=== PATIENT | female | born 1965 | race Caucasian/White ===

== ENCOUNTER 2025-02-24 14:00 | Emergency (ER) | payer MEDICARE, MEDICAID, SELFPAY ==
[2025-02-24 14:00] VITALS: BP 144/83; PULSE 80; RESP 18; TEMP 36.8; O2SAT 98; BMI 32.8
--- NOTE | 2025-02-24 14:40 | EX.ED.DYSGE1 ---
HPI History of Present Illness Chief Complaint: Rash Informant: patient Onset/Context/Timing Onset: Days (2) Context: Gradual Onset Timing: Continuous Quality: Aching, burning Location: Left gluteal area Worsened by: Hot shower Relieved by: Nothing Narrative Narrative: Patient presents with a rash on her left gluteal area that has been getting worse over the past 2 days. Patient describes her pain as aching and burning. Patient states it is over the left gluteal area. Patient is concerned that this could be shingles. Patient states it is worse when she takes a shower. Patient states her pain has been constant. Patient denies any fevers or chills. Patient denies any discharge or drainage. Patient denies any paresthesias or weakness. PFSH [facility] Medical History (Updated 02/24/25 @ 14:[address] Rupesh Jensen DO) Hypercholesterolemia Hypertension Type 2 diabetes mellitus Anxiety Depression Home Medications ?Medication ?Instructions ?Recorded ?Last Taken ?Type hydrocodone-acetaminophen 5-325mg 1 tab PO Q6H PRN PRN Pain 3 days 02/24/25 Unknown Rx 5mg-325mg #10 TABLETS valacyclovir 1 gram tablet 1,000 mg PO TID #20 tabs 02/24/25 Unknown Rx (Valtrex) Allergy/AdvReac Type Severity Reaction Status Date / Time NSAIDS (Non-Steroidal Allergy Hives Verified 02/24/25 14:03 Anti-Inflamma Sulfa (Sulfonamide AdvReac Diarrhea Verified 02/24/25 14:03 Antibiotics) Surgical History (Updated 02/24/25 @ 14:[address] Rupesh Jensen DO) Hx of removal of cyst History of hysterectomy Hx of cholecystectomy Social History (Updated 02/24/25 @ 14:[address] Rupesh Jensen DO) Smoking Status: Current every day smoker ROS ROS ED Constitutional Constitutional ED: Denies chills or fever(s) Eyes Eyes: Denies blurry vision or change in vision ENT ENT ED: Denies rhinorrhea or sore throat Cardiovascular Cardiovascular: Denies chest pain or palpitations Respiratory/Chest Respiratory/Chest: Denies cough or dyspnea Gastrointestinal Gastrointestinal: Denies nausea or vomiting Genitourinary Genitourinary ED: Denies dysuria or hematuria Musculoskeletal Musculoskeletal: Denies back pain or neck pain Integumentary Reports rash; Denies abscess Neurologic Neurologic: Denies headache(s) or weakness Allergic/Immunologic Allergic/Immunologic ED: Denies mouth swelling or urticaria EXAM Physical Exam Const Vital Signs: 02/24/25 14:00 Temperature 98.2 F Temperature Source Oral Pulse Rate 80 Respiratory Rate 18 Blood Pressure 144/83 H Blood Pressure Mean 103 Pulse Ox 98 Oxygen Delivery Method Room Air Positive well nourished and well developed General Appearance ED: well developed and NAD HEENT Reports moist mucous membranes Neck supple and no JVD Neuro oriented x3, CN's II-XII intact bilaterally and no sensory deficits noted Sensorium / Orientation: alert Motor Exam: strength 5/5 throughout Skin Skin Narrative: There is an erythematous rash with some vesicles noted over the left gluteal area. There is no warmth noted. There is no discharge or drainage noted. There are no petechia noted. There is no involvement of the palms or soles. There is no involvement of the mucous membranes. MDM MDM MDM Narrative Medical decision making narrative: Patient was advised that this does appear to be varicella-zoster. Patient was given a prescription for valacyclovir and a short course of [place]. Patient was instructed to follow-up with her primary care physician in 5 to 7 days. Patient understood and was agreeable plan. All questions were answered. Discharge Plan Triage Chief Complaint: Rash ED Provider: Rupesh Jensen Dx/Rx/DC Orders Clinical Impression: Varicella zoster, Hypertension, Tobacco use Instructions: ED Shingles (Herpes Zoster) Prescriptions: New hydrocodone-acetaminophen 5-325 mg tablet 1 tab PO Q6H PRN PRN (Reason: Pain) 3 Days Qty: 10 0RF valacyclovir [Valtrex] 1 gram tablet 1,000 mg PO TID Qty: 20 0RF Primary Care Provider: NOT,DEFINED Referrals: NOT,DEFINED [Primary Care Provider] - 3-5 Days Print Language: Amharic Disposition Disposition: Home, Self Care
== END 2025-02-24 15:14 | disposition home or self-care (01) ==
PROVIDERS: Emergency Provider Emergency Medicine; Visit Provider Emergency Medicine
DX: B02.9 Zoster without complications (principal); F17.200 Nicotine dependence, unspecified, uncomplicated
CPT/HCPCS: 99282

== ENCOUNTER 2025-04-07 19:02 | Emergency (ER) | payer OTHER, MEDICARE, MEDICAID, SELFPAY ==
[2025-04-07] VITALS (22 sets, daily range): BP systolic 61–139; BP diastolic 39–116; PULSE 59–69; RESP 15–25; TEMP 18.8–36.7; O2SAT 84–100; BMI 34.0
--- NOTE | 2025-04-07 19:17 | EKG12_ITS ---
Test Reason : UNRESPONSIVE Blood Pressure : */* mmHG Vent. Rate : 69 BPM Atrial Rate : * BPM P-R Int : * ms QRS Dur : 90 ms QT Int : 380 ms P-R-T Axes : * 22 43 degrees QTcB Int : 407 ms Accelerated Junctional rhythm Abnormal ECG Confirmed by FARZANA ROSAS, AURORA ([id number]), associate entertainment editor ANGELITA WONG ([id number]) on 04/08/2025 1:09:53 PM Referred By: Confirmed By: AURORA YANES MD
--- NOTE | 2025-04-07 19:17 | CT_ITS ---
PROCEDURE: BRAIN/HEAD WITHOUT CONTRAST 04/07/2025 REASON FOR EXAM: Altered mental status. Suicide attempt with medication TECHNIQUE: BRAIN/HEAD WITHOUT CONTRAST Coronal and Sagittal reconstruction series were provided. One or more dose reduction techniques were used (e.g., Automated exposure control, adjustment of the mA and/or kV according to patient size, use of iterative reconstruction technique. RADIATION DOSE SUMMARY: CTDlvol: 44.99 mGy DLP: 812.98 mGycm COMPARISON: None. FINDINGS: Brain: No intra-axial or extra-axial hemorrhage. No mass, mass effect or midline shift. No evidence of hypoxia in the basal ganglia. CSF Spaces: Normal for age. Sinuses/Mastoids: Clear Bones: No fracture or acute bony process. CT/Brain/Head without Contrast IMPRESSION: No acute process is detected. Reading [facility]
--- OUTSIDE RECORDS SUMMARY | 2025-04-07 19:21 | XMS RPT_ITS | CCD ---
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 Role Phone Anjana Salinas Primary Care Provider Unknown, Referring Provider Unavailable Unav ailable Brad ROSAS, Anjana Primary Care Provider Anjana Salinas MD Primary Care Provi kaushal Anjana Salinas MD Primary Care Provider Anjana Salinas Attending Unavailable Brad, Anjana Referring Unavailable Brad, Anjana Primary Care Unavailable BradAnjana granados Attending Unavailable Brad, Anjana Referring Unavailable Brad, Anjana Primary Care Unavailable BradAnjana granados Attending Unavailable Brad, Anjana Referring Unavailable Brad, Anjana Primary Care Unavailable Laura Garduno Attending Unavailable Brad, Anjnaa Referring Unavailable Brad, Anjana Primary Care Unavailable Gonzalo Mae Attending Unavailable Brad, Anjana Referring Unavailable Brad, Anjana Primary Care Unavailable Anjana Salinas MD Primary Care Provider Anjana Salinas MD Primary Care Provider Unavailable Primary Care Provider UnavailLena Sherman MD Primary Care Provider Clare Robledo DO Primary Care Provider LENA VARNER Primary Care Unavailable JOE ESCOBEDO Attending Unavailable Lena Varner MD Primary Care Provider [phone] Dr. Rupesh Jensen DO Emergency Provider Care Physician, No Primary Primary Care Provider Unavailable LENA VARNER Primary Care Unavailable ASHLEY AMOR Attending Unavailable ROBLEDO, CLARE M Primary Care Unavailable LISHNEVSKI, LENA Attending Unavailable LISHNEVSKI, LENA Primary Care Unavailable LISHNEVSKI, LENA Attending Unavailable LISHNEVSKI, LENA Primary Care Unavailable LISHNEVSKI, LENA Attending Unavailable LISHNEVSKI, LENA Primary Care Unavailable LISHNEVSKI, LENA Attending Unavailable LISHNEVSKI, LENA Referring Unavailable LISHNEVSKI, LENA Primary Care Unavailable LISHNEVSKI, LENA Attending Unavailable LISHNEVSKI, LENA Primary Care Unavailable LISHNEVSKI, LENA Attending Unavailable LISHNEVSKI, LENA Primary Care Unavailable LISHNEVSKI, LENA Attending Unavailable LISHNEVSKI, LENA Primary Care Unavailable LISHNEVSKI, LENA Primary Care Unavailable BRONWYN ROBERT Attending Unavailable LISHNEVSKI, LENA Primary Care Unavailable LISHNEVSKI, LENA Primary Care Unavailable BRONWYN MOLINA Attending Unavailable Rupesh Jensen Attending Unavailable Care Physician, No Primary Primary Care Unava ilable Allergies Allergy Classification Reported Allergen(s) Allergy Type Date of Onset Reaction(s) Facility NSAIDs (3 sources) NSAIDs Drug Allergy 02-07-20 15 Anaphylaxis [facility] Sulfamethoxazole / Trimethoprim (3 sources) Sulfamethoxazole / Trimethoprim Drug Allergy 02-07-20 15 Diarrhea, Nausea And Vomiting [facility] (10 sources) NSAIDs Propensity to adverse reactions to drug 02-07-20 15 Anaphylaxis [place], [place] (20 sources) Sulfamethoxazole / Trimethoprim Drug Allergy 02-07-20 15 Diarrhea, Nausea And Vomiting [place], [place] (20 sources) Non-steroidal anti-inflammatory agent; Translations: [NSAIDS (NON-STEROIDAL ANTI-INFLAMMATORY DRUG)] Drug Allergy 04-27-20 11 Hives, Itching, Anaphylaxis [facility] (20 sources) Sulfonamides (Antibiotic); Translations: [SULFA (SULFONAMIDE ANTIBIOTICS)] Drug Intolerance 04-27-20 11 Diarrhea, GI Upset [facility] (2 sources) Non-steroidal anti-inflammatory agent Drug Allergy 04-27-20 11 Hives, Itching [facility] (2 sources) cyclobenzaprine Drug Allergy 01-31-20 25 [facility] (1 source) Nonsteroidal Anti-inflammatory Compounds Allergy to substance 02-25-20 25 [facility] (1 source) Sulfonamides (Antibiotic) Propensity to adverse reactions 02-25-20 Diarrhea [facility] (1 source) NSAIDs Drug allergy (disorder) 02-25-20 [facility] (1 source) Sulfonamides (Antibiotic) Drug allergy (disorder) 02-25-20 [facility] Medications Current Medications Medication Drug Class(es) Dates Sig (Normalized) Sig (Original) acetaminophen 500 mg oral tablet (16 sources) Start: 04-14-2022 acetaminophen (TYLENOL) tablet 1,000 mg Start: 08-11-2021 take 1 dose by mouth three times daily 1,000 mg, Oral, EVERY 8 HOURS SCHEDULED (3 times per day), First dose on Tue08/11/21 at 2200 Maximum dose of acetaminophen is 4000 mg from all sources in 24 hours. Post-op take 1 tablet by donn th every six hours as needed for pain acetaminophen (TYLENOL) 500 MG tablet Take 500 mg by mouth every 6 hours as needed for Pain 0 Active acetaminophen 325 mg / HYDROcodone bitartrate 5 mg oral tablet (1 source) Opioid Agonist Start: 02-24-2025 take 1 tablet by mouth every six hours as needed for pain Hydrocodone-Acetaminophen 5-325 mg tablet Active 1 {tbl} PO EVERY 6 HOURS NEEDED as needed for Pain 10 3 0 February 24, 2025 Varicella-zoster virus infection Zoster without complications [id number] 200 actuat albuterol 0.09 mg/actuat metered dose inhaler (6 sources) beta2-Adren ergic Agonist Start: 02-25-2023 take 2 puff(s) by inhalation every six hours as needed for wheezing albuterol HFA (PROVENTIL HFA, VENTOLIN HFA) 90 mcg/actuation inhaler Inhale 2 Puffs as instructed every 6 hours as needed for wheezing/shortness of breath. 8 g 02/25/2023 Active Start: 08-12-2021 End: 08-13-2021 albuterol (PROVENTIL) nebuli zer solution 2.5 mg Start: 08-11-2021 End: 08-12-2021 2.5 mg, Nebulization, EVERY 4 HOURS WHILE AWAKE, First dose on Tue08/11/21 at 2000, Post-op Start: 04-10-2019 End: 04-10-2019 albuterol (PROVENTIL) nebuli zer solution 2.5 mg Comment on above: Inhale 2 Puffs as in structed every 6 hours as needed for wheezing/shortness of breath. albuterol 0.833 mg/ml / ipratropium bromide 0.167 mg/ml inhalation solution (7 sources) Anticholinergic, beta2-Adrenergic Agonist Start: End: take 3 mL by inhalation twice daily ipratropium-albu terol (DUONEB) 0.5-2.5 (3) MG/3ML SOLN nebulizer solution Inhale 3 mLs into the lungs 2 times daily 360 mL 0 08/18/2021 Active Start: 08-13-2021 End: 08-17-2021 ipratropium-albuterol (DUONE B) nebulizer solution 1 ampule Start: 04-13-2019 End: 04-13-2019 ipratropium-albuterol (DUONE B) nebulizer solution 1 ampule amLODIPine 10 mg oral tablet (20 sources) Dihydropyridine Calcium Channel Morris Start: 10-25-2018 End: 10-30-2024 take 1 tablet by mouth once daily amLODIPine (Norvasc) 10 MG tablet Indications: Essential hypertension, benign Take 1 tablet (10 mg) by mouth daily. 90 tablet 1 10/30/2024 Active Comment on above: Take 10 mg by mouth once daily. atorvastatin 40 mg oral tablet (20 sources) HMG-CoA Reductase Inhibitor Start: 05-06-2022 End: 10-30-2024 take 2 tablets by mouth every other day, then take 1 tablet by mouth every other day atorvastatin (Lipitor) 40 MG tablet Indications: Hypercholesteremia TAKE TWO BY MOUTH EVERY OTHER DAY ALTERNATING WITH ONE EVERY OTHER DAY 135 tablet 02/28/2024 10/30/2024 Discontinued (Therapy completed) Start: 01-20-2022 take 2 tablets by mo uth every other day, then take 1 tablet by mouth every other day atorvastatin (LIPITOR) 40 MG tablet Indications: Hyperlipidemia, unspecified hyperlipidemia type TAKE TWO BY MOUTH EVERY OTHER DAY ALTERNATING WITH ONE EVERY OTHER DAY 135 tablet 0 01/20/2022 Active Start: 08-18-2021 End: 08-18-2021 take 2 tablets by mouth every other day, then take 1 tablet by mouth every other day atorvastatin (LIPITOR) 40 MG tablet Indications: Hyperlipidemia, unspecified hyperlipidemia type TAKE TWO BY MOUTH EVERY OTHER DAY ALTERNATING WITH ONE EVERY OTHER DAY 135 tablet 1 08/18/2021 Active Start: 08-11-2021 End: 01-28-2025 take 1 tablet by mouth once daily atorvastatin (Lipitor) 40 MG tablet Take 1 tablet (40 mg) by mouth daily. 90 tablet 1 10/30/2024 Active Start: 03-27-2021 End: 08-15-2021 take 2 tablets by mouth every other day, then take 1 tablet by mouth every other day atorvastatin (LIPITOR) 40 MG tablet Indications: Hyperlipidemia, unspecified hyperlipidemia type TAKE TWO BY MOUTH EVERY OTHER DAY ALTERNATING WITH ONE EVERY OTHER DAY 135 tablet 1 03/27/2021 08/15/2021 Discontinued (LIST CLEANUP) Start: 06-11-2020 atorvastatin ( LIPITOR) 40 MG tablet Indications: Hyperlipidemia, unspecified hyperlipidemia type Take two tablets alternating with one tablet daily 135 tablet 1 06/11/2020 Active Start: 05-02-2019 atorvastatin ( LIPITOR) 40 MG tablet Indications: Hyperlipidemia, unspecified hyperlipidemia type Take two tablets alternating with one tablet daily 135 tablet 1 05/02/2019 Active Start: 05-03-2018 atorvastatin ( LIPITOR) 40 MG tablet Indications: Hyperlipidemia, unspecified hyperlipidemia type Take two tablets alternating with one tablet daily 135 tablet 1 05/03/2018 Active Comment on above: Take 40 mg by mouth once daily. benzonatate 100 mg oral capsule (4 sources) Non-narcotic Antitussive Start: 2 End: 2 take 1-2 capsules by mouth three times daily as needed for cough benzonatate (TESSALON) 100 MG capsule Take 1-2 capsules by mouth 3 times daily as needed for Cough 60 capsule 0 12/03/2021 12/13/2021 Active Start: 04-13-2019 End: 04-23-2019 benzonatate (TESSALON) capsu le 100 mg calamine 80 mg/ml / pramoxine hydrochloride 10 mg/ml topical lotion (1 source) Start: 02-21-2025 pramoxine-calamine (CALADRYL) 1-8 % lotion Indications: Rash Apply 1 application to affected area as needed. 177 mL 02/21/2025 Active cephalexin 500 mg oral capsule (1 source) Cephalosporin Antibacterial Start: 02-22-2021 End: 03-01-2021 take 1 capsule by mouth three times daily cephALEXin (KEFLEX) 500 MG capsule Take 1 capsule by mouth 3 times daily for 7 days 21 capsule 0 02/22/2021 03/01/2021 Active cholecalciferol 0.025 mg oral tablet (20 sources) Vitamin D take 1 tablet by mouth once daily cholecalciferol (Vitamin D-3) 25 MCG (1000 UT) tablet Take 1,000 Units by mouth daily. Active Comment on above: Take 1,000 Units by mouth once daily. ciprofloxacin 500 mg oral tablet (12 sources) Quinolone Antimicrobial Start: 03-13-2024 End: 03-18-2024 take 1 tablet by mouth twice daily ciprofloxacin HCl (CIPRO) 500 mg tablet Indications: Leukocytes in urine Take 1 tablet by mouth two times a day for 5 days. 10 tablet 0 03/13/2024 03/18/2024 Active Start: 06-22-2023 End: 06-25-2023 take 1 tablet by mouth twice daily ciprofloxacin HCl (CIPRO) 500 mg tablet Indications: UTI symptoms Take 1 tablet by mouth two times a day for 3 days. 6 tablet 0 06/22/2023 06/25/2023 Active Start: 04-14-2022 End: 04-17-2022 ciprofloxacin (CIPRO) tablet 250 mg Start: 01-31-2021 End: 02-03-2021 take 1 tablet by mouth twice daily ciprofloxacin (CIPRO) 500 MG tablet Take 1 tablet by mouth 2 times daily for 3 days 6 tablet 0 01/31/2021 02/03/2021 Active Start: 08-05-2020 End: 08-12-2020 ciprofloxacin (CIPRO) tablet 500 mg Start: 12-22-2019 End: 01-01-2020 ciprofloxacin (CIPRO) tablet 500 mg Comment on above: Take 1 tablet by donn th two times a day for 3 days. clonazePAM 1 mg oral tablet (20 sources) Benzodiazepine Start: 08-11-2021 End: 08-16-2021 clonazePAM (KLONOPIN) tablet 1 mg take 1 tablet by mouth in the mo rning clonazePAM (KlonoPIN) 0.5 MG tablet Take 0.5 mg by mouth in the morning and 0.5 mg in the evening. Active take 2 tablets by mouth twice da charlene clonazePAM (KLONOPIN) 0.5 mg tablet Take 1 mg by mouth two times a day. Active take 1 tablet by mouth twice eloise ly clonazePAM (KLONOPIN) 2 MG tablet Take 2 mg by mouth 2 times daily. 0 Active take 1 tablet by donn th three times daily as needed clonazePAM (KLONOPIN) 0.5 MG tablet Take 0.5 mg by mouth 3 times daily as needed. . 0 Active Comment on above: Take 0.5 mg by mouth twice daily. colesevelam hydrochloride 625 mg oral tablet (20 sources) Bile Acid Sequestrant Start: 10-11-19 take 2 tablets by mouth twice daily colesevelam (Welchol) 625 MG tablet Take 1,250 mg by mouth 2 times daily. 10/11/2023 Active dapagliflozin 10 mg oral tablet (20 sources) Sodium-Glucose Cotransporter 2 Inhibitor Start: 10-19-19 End: 01-29-20 take 1 tablet by mouth once daily dapagliflozin (Farxiga) 10 MG tablet Indications: Type 2 diabetes mellitus without complication, without long-term current use of insulin ([facility]) Take 1 tablet (10 mg) by mouth daily. 90 tablet 1 10/30/2024 Active Start: 01-25-2019 End: 03-24-2023 take 1 tablet by mouth once daily at breakfast dapagliflozin (Farxiga) 10 MG Indications: Type 2 diabetes mellitus without complication, without long-term current use of insulin ([facility]/HCC) ([facility]) Take 1 tablet (10 mg) by mouth daily (with breakfast). 90 tablet 1 03/24/2023 Active Comment on above: Take 10 mg by mouth daily with breakfast. 1 ml dexamethasone phosphate 4 mg/ml injection (1 source) Corticosteroid Start: 021 dexamethasone (DECADRON) injection 6 mg dicyclomine hydrochloride 10 mg oral capsule (5 sources) Anticholinergic Start: 023 End: 023 take 1 capsule by mouth every six hours as needed dicyclomine (Bentyl) 10 MG capsule Take 1 capsule (10 mg) by mouth every 6 hours as needed (Abdominal pain) for up to 5 days. 12 capsule 0 06/21/2023 06/26/2023 Active Start: 04-10-2021 take 2 capsules by out three times daily before mealtime dicyclomine (BENTYL) 10 mg capsule Take 2 capsules by mouth three times daily before meals. 180 capsule 0 04/11/2021 Active Comment on above: Take 2 capsules by out three times daily before meals. docusate sodium 50 mg / sennosides, prison 8.6 mg oral tablet (5 sources) Start: 08-18-2021 End: 08-18-2021 take 1 tablet by mouth once daily sennosides-docusa te sodium (SENOKOT-S) 8.6-50 MG tablet Take 1 tablet by mouth daily 5 tablet 0 08/18/2021 Active Start: 08-11-2021 take 1 tablet by donn th twice daily 1 tablet, Oral, 2 TIMES DAILY, First dose on Tue08/11/21 at 2100, Post-op 0.4 ml enoxaparin sodium 100 mg/ml prefilled syringe (1 source) Low Molecular Weight Heparin Start: 08-12-2021 inject 40 mg by subcutaneous injection once daily 40 mg, SubCUTAneous, DAILY, First dose on Tue08/12/21 at 0900, Post-op ferrous sulfate 325 mg oral tablet (1 source) Start: 06-18-2023 End: 07-18-2023 take 1 tablet by mouth once daily ferrous sulfate (IRON) 325 mg (65 mg iron) tablet Take 1 tablet by mouth once daily. 30 tablet 0 06/18/2023 07/18/2023 Active Comment on above: Take 1 tablet by donn th once daily. gabapentin 100 mg oral capsule (3 sources) Anti-epileptic Agent Start: 09-08-2021 End: 08-15-2089 take 1 capsule by mouth three times daily gabapentin (NEURONTIN) 100 MG capsule Take 1 capsule by mouth 3 times daily for 30 days. 90 capsule 0 09/08/2021 08/15/2089 Active Start: 08-11-2021 End: 08-11-2021 gabapentin (NEURONTIN) capsu le 300 mg glimepiride 4 mg oral tablet (20 sources) Sulfonylurea Start: 10-18-2023 End: 10-30-2024 take 1 tablet by mouth twice daily at mealtime glimepiride (Amaryl) 4 MG tablet TAKE ONE BY MOUTH TWICE DAILY WITH MEALS 180 tablet 1 10/30/2024 Active Start: 02-02-2023 End: 04-28-2023 take 1 tablet by mouth twice daily at mealtime glimepiride (Amaryl) 4 MG tablet TAKE ONE BY MOUTH TWICE DAILY WITH MEALS 180 tablet 1 04/28/2023 Active Start: 05-06-2022 take 1 tablet by donn th twice daily at mealtime glimepiride (Amaryl) 4 MG tablet TAKE ONE BY MOUTH TWICE DAILY WITH MEALS 0 05/06/2022 Active Start: 02-03-2022 take 1 tablet by donn th twice daily at mealtime glimepiride (AMARYL) 4 MG tablet Indications: Type 2 diabetes mellitus without complication, without long-term current use of insulin (HCC) TAKE ONE BY MOUTH TWICE DAILY WITH MEALS 180 tablet 1 02/03/2022 Active Start: 08-18-2021 End: 08-18-2021 take 1 tablet by mouth twice daily at mealtime glimepiride (AMARYL) 4 MG tablet Indications: Type 2 diabetes mellitus without complication, without long-term current use of insulin (HCC) TAKE ONE BY MOUTH TWICE DAILY WITH MEALS 180 tablet 1 08/18/2021 Active Start: 04-16-2021 End: 08-15-2021 take 1 tablet by mouth twice daily at mealtime glimepiride (AMARYL) 4 MG tablet Indications: Type 2 diabetes mellitus without complication, without long-term current use of insulin (HCC) TAKE ONE BY MOUTH TWICE DAILY WITH MEALS 180 tablet 1 04/16/2021 08/15/2021 Discontinued (LIST CLEANUP) Start: 01-19-2021 take 1 tablet by donn th twice daily at mealtime glimepiride (AMARYL) 4 MG tablet Indications: Type 2 diabetes mellitus without complication, without long-term current use of insulin (HCC) TAKE ONE BY MOUTH TWICE DAILY WITH MEALS 180 tablet 1 01/19/2021 Active Start: 06-11-2020 take 1 tablet by donn th twice daily at mealtime glimepiride (AMARYL) 4 MG tablet Indications: Type 2 diabetes mellitus without complication, without long-term current use of insulin (HCC) TAKE ONE BY MOUTH TWICE DAILY WITH MEALS 180 tablet 1 06/11/2020 Active Start: 02-06-2020 take 1 tablet by donn th twice daily at mealtime glimepiride (AMARYL) 4 MG tablet Indications: Type 2 diabetes mellitus without complication, without long-term current use of insulin (HCC) TAKE ONE BY MOUTH TWICE DAILY WITH MEALS 180 tablet 0 02/06/2020 Active Start: 08-10-2019 End: 11-08-2019 take 1 tablet by mouth twice daily at mealtime glimepiride (AMARYL) 4 MG tablet Indications: Type 2 diabetes mellitus without complication, without long-term current use of insulin (HCC) TAKE ONE BY MOUTH TWO TIMES DAILY WITH MEALS 180 tablet 0 11/06/2019 Active Start: 01-25-2019 End: 04-25-2019 take 1 tablet by mouth twice daily at mealtime glimepiride (AMARYL) 4 MG tablet Indications: Type 2 diabetes mellitus without complication, without long-term current use of insulin (HCC) Take 1 tablet by mouth 2 times daily (with meals) 180 tablet 0 01/25/2019 04/25/2019 Active Comment on above: Take 4 mg by mouth t wice daily. glucagon (rdna) 1 mg injection (1 source) Antihypoglycemic Agent Start: take 1 mL intravenously every hour 1 mg, IntraMUSCular, PRN, Low blood sugar, Blood glucose less than 70 mg/dL and patient NOT ALERT or NPO and does not have IV access., Starting on Tue08/11/21 at 1804 After administration, attempt intravenous access and start D5W at 100 mL/hr. Repeat blood glucose in 15 minutes x2 and notify provider. Glucometer (7 sources) Start: Glucometer by Other route daily. Once daily thing in the a.m. 1 kit 10/30/2024 Active 150 ml glucose 50 mg/ml injection (3 sources) Start: 021 15 g, Oral, PRN, Low blood sugar, Starting on Tue08/11/21 at 1804 If blood glucose less than 50 mg/dL and patient ALERT and TOLERATING PO, give 2 tubes glucose gel. If blood glucose less than 70 mg/dL and patient ALERT and TOLERATING PO, give 1 tube glucose gel. Repeat blood glucose in 15 minutes. If blood glucose is less than 70 mg/dL, repeat treatment and recheck blood glucose in 15 minutes x2 and notify provider. Start: 08-11-2021 12.5 g, IntraV ENous, PRN, Low blood sugar, Blood glucose less than 70 mg/dL and patient NOT ALERT or NPO., Starting on Tue08/11/21 at 1804 If patient does not respond within 5 minutes, repeat dose x1. Start D5W at 100 mL/hour until ordering provider can be reached. Repeat blood glucose in 15 minutes. If blood glucose is less than 70 mg/dL, repeat treatment and recheck blood glucose in 15 minutes x2. If using Glucostabilizer, dose as instructed per system. Start: 08-11-2021 100 mL/hr, Int raVENous, PRN, Low blood sugar, Starting on Tue08/11/21 at 1804 Start infusion following administration of dextrose 50% or glucagon. 1 ml hydrALAZINE hydrochloride 20 mg/ml injection (1 source) Arteriolar Vasodilator Start: 08-11-2021 10 mg, IntraVENous, EVERY 6 HOURS PRN, High Blood Pressure, give is SBP is > 160, second line, hold if HR is > 100, Starting on Tue08/11/21 at 1804, Post-op insulin isophane, human 100 unt/ml injectable suspension (4 sources) Start: 08-19-2021 insulin NPH (H UMULIN N;NOVOLIN N) injection vial 6 Units Start: 08-18-2021 insulin NPH (H UMULIN N;NOVOLIN N) injection vial 4 Units Start: 08-18-2021 End: 08-26-2021 insulin NPH (HUMULIN N KWIKP EN) 100 UNIT/ML injection pen Inject 20 Units into the skin every morning for 2 days, THEN 15 Units every morning for 2 days, THEN 10 Units every morning for 2 days, THEN 5 Units every morning for 2 days. 1 pen 0 08/18/2021 08/26/2021 Active irbesartan 150 mg oral tablet (20 sources) Angiotensin 2 Receptor Morris Start: 10-25-2018 End: 10-30-2024 take 1 tablet by mouth once daily irbesartan (Avapro) 150 MG tablet Indications: Essential hypertension, benign Take 1 tablet (150 mg) by mouth daily. 90 tablet 1 10/30/2024 Active Comment on above: Take 150 mg by mouth daily at bedtime. labetalol hydrochloride 5 mg/ml injectable solution (1 source) beta-Adrenergic Morris Start: 08-11-2021 10 mg, IntraVENous, EVERY 6 HOURS PRN, High Blood Pressure, give if SBP is > 160, first line, hold if HR is < 65, Starting on Tue08/11/21 at 1804 linagliptin 5 mg oral tablet (20 sources) Dipeptidyl Peptidase 4 Inhibitor Start: 01-22-2021 End: 04-06-2025 take 1 tablet by mouth once daily linaGLIPtin (Tradjenta) 5 MG tablet Indications: Type 2 diabetes mellitus without complication, without long-term current use of insulin ([facility]) Take 1 tablet (5 mg) by mouth daily. 90 tablet 1 10/08/2024 04/06/2025 Active Start: 06-11-2020 take 1 tablet by donn th once daily, then take 1 tablet by mouth linagliptin (TRADJENTA) 5 MG tablet Indications: Type 2 diabetes mellitus without complication, without long-term current use of insulin (HCC) TAKE ONE BY MOUTH DAILY 90 tablet 1 06/11/2020 Active Start: 01-28-2020 take 1 mg by mouth once daily TRADJENTA 5 MG tablet Indications: Type 2 diabetes mellitus without complication, without long-term current use of insulin ([facility]) TAKE ONE BY MOUTH DAILY 90 tablet 0 01/28/2020 Active Start: 11-06-2019 take 1 mg by mouth once daily TRADJENTA 5 MG tablet Indications: Type 2 diabetes mellitus without complication, without long-term current use of insulin (HCC) TAKE ONE BY MOUTH DAILY 90 tablet 0 11/06/2019 Active Start: 05-02-2019 take 1 tablet by donn th once daily linagliptin (TRADJENTA) 5 MG tablet Indications: Type 2 diabetes mellitus without complication, without long-term current use of insulin ([facility]) Take 1 tablet by mouth daily 90 tablet 1 05/02/2019 Active Start: 01-25-2019 End: 04-25-2019 take 1 tablet by mouth once daily linagliptin (TRADJENTA) 5 MG tablet Indications: Type 2 diabetes mellitus without complication, without long-term current use of insulin ([facility]) Take 1 tablet by mouth daily 90 tablet 0 01/25/2019 04/25/2019 Active Comment on above: Take 1 tablet by donn th once daily. metFORMIN hydrochloride 1000 mg oral tablet (20 sources) Biguanide Start: 8 End: 5 take 1 tablet by mouth twice daily at mealtime metFORMIN (Glucophage) 1000 MG tablet Indications: Type 2 diabetes mellitus without complication, without long-term current use of insulin (HCC) Take 1 tablet (1,000 mg) by mouth 2 times daily (with meals). 180 tablet 1 10/30/2024 04/28/2025 Active mirtazapine 15 mg disintegrating oral tablet (20 sources) Start: take 45 mg by mouth once daily 45 mg, Oral, NIGHTLY, First dose on Tue08/11/21 at 2100 mirtazapine (Rem sherry) 30 MG tablet Take 45 mg by mouth. Active mirtazapine (REM SHERRY SOLTAB) 30 MG disintegrating tablet Take 45 mg by mouth nightly 0 Active Comment on above: Take 45 mg by mouth daily at bedtime. mometasone furoate 1 mg/ml topical lotion (7 sources) Corticosteroid Start: mometasone (ELOCON) 0.1 % lotion Indications: Rash and nonspecific skin eruption Apply topically daily. 60 mL 1 08/29/2019 Active ondansetron (ZOFRAN-ODT) disintegrating tablet 4 mg (1 source) Start: 021 ondansetron (ZOFRAN-ODT) disintegrating tablet 4 mg oxyCODONE hydrochloride 5 mg oral tablet (2 sources) Opioid Agonist Start: End: take 1 tablet by mouth every four hours as needed oxyCODONE (ROXICODONE) 5 MG immediate release tablet Indications: Mediastinal mass Take 0.5-1 tablets by mouth every 4 hours as needed for Pain for up to 3 days. 12 tablet 0 08/18/2021 08/21/2021 Active Start: 08-11-2021 oxyCODONE (COREY ICODONE) immediate release tablet 5 mg Oxygen (3 sources) Start: 08-18-2021 OXYGEN 3 L continuous 0 08/18/2021 Active pantoprazole 40 mg delayed release oral tablet (9 sources) Proton Pump Inhibitor Start: 07-24-2023 take 40 mg by mouth once 40 mg, Oral, Once, On 07/24/23 at 1650, For 1 dose, Do not crush, chew, or split. Start: 07-24-2023 End: 08-23-2023 take 1 tablet by mouth twice daily pantoprazole (ProtoNix) 40 MG EC tablet Take 1 tablet (40 mg) by mouth 2 times daily. Do not crush, chew, or split. 60 tablet 0 07/24/2023 08/23/2023 Active Start: 08-12-2021 take 40 mg by mouth once daily before breakfast 40 mg, Oral, DAILY BEFORE BREAKFAST, First dose on Tue08/12/21 at 0700 Do not crush or break. Substituted for Omeprazole (PRILOSEC). take 40 mg by mouth twice daily pantoprazole sodium (PANTOPRAZOLE ORAL) Take 40 mg by mouth two times a day. Active PARoxetine hydrochloride 20 mg oral tablet (20 sources) Serotonin Reuptake Inhibitor Start: 08-11-2021 take 20 mg by mouth twice daily 20 mg, Oral, 2 TIMES DAILY, First dose on Tue08/11/21 at 2100 Comment on above: Take 20 mg by mouth twice daily. phenazopyridine hydrochloride 200 mg delayed release oral tablet (8 sources) Start: 02-22-2021 End: 02-25-2021 take 1 tablet by mouth three times daily as needed for pain phenazopyridine (PYRIDIUM) 200 MG tablet Take 1 tablet by mouth 3 times daily as needed for Pain (bladder spasm/pain) 6 tablet 0 02/22/2021 02/25/2021 Active Start: 01-31-2021 End: 02-03-2021 take 1 tablet by mouth three times daily as needed for pain phenazopyridine (PYRIDIUM) 200 MG tablet Take 1 tablet by mouth 3 times daily as needed for Pain (bladder spasm/pain) 6 tablet 0 01/31/2021 02/03/2021 Active Start: 08-05-2020 End: 08-05-2020 phenazopyridine (PYRIDIUM) t ablet 200 mg Start: 08-05-2020 End: 08-08-2020 take 1 tablet by mouth three times daily as needed for pain phenazopyridine (PYRIDIUM) 200 MG tablet Take 1 tablet by mouth 3 times daily as needed for Pain (bladder spasm/pain) 6 tablet 0 08/05/2020 08/08/2020 Active Start: 12-22-2019 End: 12-22-2019 phenazopyridine (PYRIDIUM) t ablet 200 mg Start: 12-22-2019 End: 12-25-2019 take 1 tablet by mouth three times daily as needed for pain phenazopyridine (PYRIDIUM) 100 MG tablet Take 1 tablet by mouth 3 times daily as needed for Pain (dysuria) 10 tablet 0 12/22/2019 12/25/2019 Active polyethylene glycol 3350 18882 mg powder for oral solution (1 source) Osmotic Laxative Start: 08-11-2021 17 g, Oral, DAILY, First dose on Tue08/11/21 at 1830, Post-op predniSONE 20 mg oral tablet (3 sources) Start: 08-18-2021 End: 08-26-2021 take 2 tablets by mouth once daily, then take 1.5 tablets by mouth once daily, then take 1 tablet by mouth once daily, then take 0.5 tablet by mouth once daily predniSONE (DELTASONE) 20 MG tablet Take 2 tablets by mouth daily for 2 days, THEN 1.5 tablets daily for 2 days, THEN 1 tablet daily for 2 days, THEN 0.5 tablets daily for 2 days. 10 tablet 0 08/18/2021 08/26/2021 Active Start: 04-13-2019 End: 04-13-2019 predniSONE (DELTASONE) table t 60 mg Start: 04-13-2019 End: 04-23-2019 take 4 tablets by mouth once daily predniSONE (DELTASONE) 10 MG tablet Take 4 tablets by mouth once daily for 5 days 20 tablet 0 04/13/2019 04/23/2019 Active psyllium 3400 mg powder for oral suspension (4 sources) Start: 08-01-2023 take 1 dose by mouth once daily psyllium (METAMUCIL) 3.4 gram packet Take 1 Packet by mouth once daily. 08/01/2023 Active Start: 04-11-2021 take 1 dose by mouth once luc y psyllium (METAMUCIL) 3.4 gram packet Take 1 Packet by mouth once daily. 30 Packet 0 04/11/2021 Active Comment on above: Take 1 Packet by donn once daily. SITagliptin 100 mg oral tablet (2 sources) Dipeptidyl Peptidase 4 Inhibitor Start: 10-26-19 19 take 1 tablet by mouth once daily JANUVIA 100 MG tablet Indications: Type 2 diabetes mellitus without complication, without long-term current use of insulin (HCC) Take 1 tablet by mouth daily 90 tablet 0 10/25/2018 Active sodium chloride flush 0.9 % injection 3 mL (1 source) Start: 04-14-20 22 sodium chloride flush 0.9 % injection 3 mL Tirzepatide (Mounjaro) 2.5 MG/0.5ML solution pen-injector (3 sources) Start: 07-12-20 End: 08-09-20 inject 2.5 mg by subcutaneous injection every week Tirzepatide (Mounjaro) 2.5 MG/0.5ML solution pen-injector Indications: Type 2 diabetes mellitus without complication, without long-term current use of insulin (CMS/HCC) ([facility]) Inject 2.5 mg under the skin 1 (one) time per week for 28 days. 2 mL 0 07/12/2023 08/09/2023 Active valACYclovir 1000 mg oral tablet (2 sources) Herpesvirus Nucleoside Analog DNA Polymerase Inhibitor, Herpes Simplex Virus Nucleoside Analog DNA Polymerase Inhibitor, Herpes Zoster Virus Nucleoside Analog DNA Polymerase Inhibitor Start: 02-25-20 25 Valacyclovir (Valtrex) 1 gram tablet Active 1000 mg PO THREE TIMES A DAY February 24, 2025 12:00am Start: 02-21-2025 End: 02-28-2025 take 1 tablet by mouth three times daily valACYclovir (VALTREX) 1 gram tablet Indications: Rash Take 1 tablet by mouth three times a day for 7 days. 21 tablet 02/21/2025 02/28/2025 Active vitamin d 1000 unt oral tablet (2 sources) take 1 tablet by donn th once daily vitamin D (CHOLECALCIFEROL) 1000 UNIT TABS tablet Take 1,000 Units by mouth daily 0 Active Completed/Discontinued Medications Medication Drug Class(es) Dates Sig (Normalized) Sig (Original) acetaminophen 325 mg / oxyCODONE hydrochloride 5 mg oral tablet (2 sources) Opioid Agonist Start: 01-30-2025 End: 02-04-2025 take 1 tablet by mouth every eight hours as needed for pain oxyCODONE-acetam inophen (Percocet) 5-325 MG tablet Indications: Lumbar back pain Take 1 tablet by mouth every 8 hours as needed for severe pain (7-10) for up to 5 days. 15 tablet 01/30/2025 02/04/2025 aluminum hydroxide 40 mg/ml / magnesium hydroxide 40 mg/ml / simethicone 4 mg/ml oral suspension (2 sources) Start: 07-24-2023 End: 07-24-2023 take 20 mL by mouth once 20 mL, Oral, Once, On Tue07/24/23 at 1650, For 1 dose amoxicillin 875 mg / clavulanate 125 mg oral tablet (2 sources) Penicillin-class Antibacterial Start: 12-03-2021 End: 12-03-2021 amoxicillin-clav ulanate (AUGMENTIN) 875-125 MG per tablet 1 tablet Start: 12-03-2021 End: 12-10-2021 take 1 tablet by mouth twice daily amoxicillin-clavulanate (AUGMENTIN) 875-125 MG per tablet Take 1 tablet by mouth 2 times daily for 7 days 14 tablet 0 12/03/2021 12/10/2021 Active calcium chloride 0.0014 meq/ ml / potassium chloride 0.004 meq/ml / sodium chloride 0.103 meq/ml / sodium lactate 0.028 meq/ml injectable solution (2 sources) Start: 08-11-2021 End: 08-12-2021 IntraVENous, at 75 mL/hr, CONTINUOUS, Starting on Tue08/11/21 at 1830, For 6 hours, Post-op Start: 08-11-2021 End: 08-11-2021 lactated ringers infusion cholestyramine resin 4000 mg powder for oral suspension (2 sources) Bile Acid Sequestrant Start: 04-10-2021 take 1 dose by mouth twice daily at mealtime cholestyramine (QUESTRAN) 4 gram packet Take 1 Packet by mouth twice daily with meals. 60 Packet 0 04/10/2021 Active Comment on above: Take 1 Packet by donn twice daily with meals. Continuous Glucose Sensor (FreeStyle Hector 3 Plus Sensor) misc (12 sources) Start: 07-24-2024 End: 10-30-2024 Continuous Glucose Sensor (FreeStyle Hector 3 Plus Sensor) misc Indications: Type 2 diabetes mellitus without complication, without long-term current use of insulin (HCC) 1 Device every 15 days. 1 each 07/24/2024 10/30/2024 Discontinued (Therapy completed) Start: 07-24-2024 End: 10-30-2024 Continuous Glucose Sensor (F reeStyle Hector 3 Plus Sensor) misc Indications: Type 2 diabetes mellitus without complication, without long-term current use of insulin (CMS/[facility]) ([facility]) 1 Device every 15 days. 1 each 07/24/2024 10/30/2024 Discontinued (Therapy completed) Start: 07-24-2024 Continuous Glu cose Sensor (FreeStyle Hector 3 Plus Sensor) [facility] [place] Indications: Type 2 diabetes mellitus without complication, without long-term current use of insulin (CMS/HCC) ([facility]) 1 Device every 15 days. 1 each 07/24/2024 Active Start: 05-08-2024 End: 07-24-2024 Continuous Glucose Sensor (F reeStyle Hector 3 Plus Sensor) [facility] [place] Indications: Type 2 diabetes mellitus without complication, without long-term current use of insulin (CMS/[facility]) ([facility]) 1 Device every 15 days. 1 each 05/08/2024 07/24/2024 Discontinued (Reorder) Start: 05-08-2024 Continuous Glu cose Sensor (FreeStyle Hector 3 Plus Sensor) [facility] [place] Indications: Type 2 diabetes mellitus without complication, without long-term current use of insulin ([facility]) ([facility]) 1 Device every 15 days. 1 each 05/08/2024 Active famotidine 20 mg oral tablet (1 source) Histamine-2 Receptor Antagonist Start: 08-11-2021 End: 08-11-2021 famotidine (PEPCID) tablet 20 mg fluconazole 100 mg oral tablet (7 sources) Azole Antifungal Start: 01-30-2025 End: 02-02-2025 take 1 tablet by mouth once daily fluconazole (Diflucan) 100 MG tablet Take 1 tablet (100 mg) by mouth daily for 3 days. 3 tablet 01/30/2025 02/02/2025 Start: 08-20-2024 End: 08-23-2024 take 1 tablet by mouth once daily fluconazole (Diflucan) 100 MG tablet Take 1 tablet (100 mg) by mouth daily for 3 days. 3 tablet 08/20/2024 08/23/2024 Active Start: 03-24-2023 End: 03-25-2023 fluconazole (Diflucan) 150 M G tablet Take 1 tablet (150 mg) by mouth See administration instructions for 1 day. Take one tab now. Repeat in 7 days if symptoms persist. 2 tablet 0 03/24/2023 03/25/2023 1 ml HYDROmorphone hydrochloride 1 mg/ml cartridge (2 sources) Opioid Agonist Start: 08-11-2021 End: 08-11-2021 HYDROmorphone (DILAUDID) injection 0.5 mg hyoscyamine sulfate 0.125 mg sublingual tablet (2 sources) Start: 07-31-2023 End: 02-21-2025 take 1 tablet under the tongue three times daily before mealtime hyoscyamine sublingual (LEVSIN SL) 0.125 mg Dissolve 1 tablet under the tongue three times a day before meals. 90 tablet 07/31/2023 02/21/2025 Discontinued (Other) insulin glargine 100 unt/ml injectable solution (3 sources) Insulin Analog Start: 10-20-2023 End: 01-25-2024 inject 10 [IU] by subcutaneous injection once daily insulin glargine (Lantus) 100 UNIT/ML injection Inject 10 Units under the skin Nightly. 3 mL 1 10/20/2023 01/25/2024 Discontinued (Side effects) insulin lispro 100 unt/ml injectable solution (3 sources) Insulin Analog Start: 08-11-2021 End: 08-18-2021 0-6 Units, SubCUTAneous, NIGHTLY, First dose on Tue08/11/21 at 2100 If continuous tube feedings/TPN/NPO, give correction dose based on result, no reduction in dose. If eating or bolus tube feeding: Med ium Dose Bedtime Correction Algorithm Gl ucose: Dose: 70-139 No Insulin 140-19 9 1 Unit 200-249 2 Units 250-299 3 Units 300-349 4 Units 350-399 5 Units 400 and above 6 Units Start: 08-11-2021 0-12 Units, [place] bCUTAneous, 3 TIMES DAILY WITH MEALS, First dose on Tue08/11/21 at 1830 Medium Dose Correction Algorithm Glucose: Dose: 70-139 No Insulin 140-199 2 Units 200-249 4 Units 250-299 6 Units 300-349 8 Units 350-399 10 Units 400 and above 12 Units Start: 08-11-2021 End: 08-11-2021 insulin lispro (HUMALOG) inj ection vial 0-12 Units iopamidol (Isovue-370) 76 % injection 75 mL (2 sources) Start: 07-24-2023 End: 07-24-2023 iopamidol (Isovue-370) 76 % injection 75 mL 1 ml LORazepam 2 mg/ml injection (1 source) Benzodiazepine Start: 08-11-2021 End: 08-11-2021 LORazepam (ATIVAN) injection 0.5 mg magnesium oxide 400 mg oral tablet (18 sources) Start: 07-31-2023 End: 06-07-2024 take 1 tablet by mouth twice daily magnesium oxide (Mag-Ox) 400 MG tablet Take 1 tablet (400 mg) by mouth 2 times daily. 60 tablet 1 05/08/2024 06/07/2024 methIMAzole 10 mg oral tablet (20 sources) Thyroid Hormone Synthesis Inhibitor Start: 08-18-2021 End: 07-12-2023 take 2 tablets by mouth once daily methIMAzole (Tapazole) 10 MG tablet Take 2 tablets by mouth daily. 0 08/18/2021 07/12/2023 Discontinued (Therapy completed) Start: 08-12-2021 take 20 mg by mouth once daily 20 mg, Oral, DAILY, First dose on Tue08/12/21 at 0900 Start: 11-12-2020 End: 12-21-2021 methIMAzole (TAPAZOLE) 10 mg tablet Indications: Graves disease TAKE TWO BY MOUTH TWICE DAILY 360 tablet 3 12/21/2021 Active Start: 09-14-2020 End: 08-15-2021 methIMAzole (TAPAZOLE) 10 MG tablet Take 20 mg by mouth daily 0 09/14/2020 08/15/2021 Discontinued (LIST CLEANUP) Comment on above: Take 2 tablets by mo uth twice daily. TAKE TWO BY MOUTH TW ICE DAILY methocarbamol 500 mg oral tablet (1 source) Muscle Relaxant Start: 08-12-20 End: 08-14-20 methocarbamol (ROBAXIN) tablet 1,000 mg 24 hr metoprolol succinate 50 mg extended release oral tablet (8 sources) beta-Adrenergic [place] Start: 11-08-19 End: 08-15-19 take 1 tablet by mouth once daily metoprolol succinate (TOPROL XL) 50 MG extended release tablet TAKE 1 TABLET BY MOUTH EVERY DAY 0 11/07/2020 08/15/2021 Discontinued (LIST CLEANUP) metroNIDAZOLE 500 mg oral tablet (3 sources) Nitroimidazole Antimicrobial Start: 03-24-20 End: 04-07-20 take 1 tablet by mouth three times daily metroNIDAZOLE (Flagyl) 500 MG tablet Take 1 tablet (500 mg) by mouth 3 times daily for 14 days. 42 tablet 0 03/24/2023 04/07/2023 1 ml morphine sulfate 4 mg/ml cartridge (4 sources) Opioid Agonist Start: 07-24-20 End: 07-24-20 morphine injection 4 mg Start: 06-21-2023 End: 06-21-2023 morphine injection 4 mg Start: 08-11-2021 End: 08-12-2021 take 2 mg by mouth every two hours as needed for pain 2 mg, IntraVENous, EVERY 2 HOURS PRN, breakthrough pain, Starting on Tue08/11/21 at 1804 If oral and IV narcotics ordered, use oral first and only use IV if oral is ineffective or cannot take oral. Do Not give oral and IV within 1 hour of each other unless specifically ordered. Post-op omeprazole 20 mg delayed release oral capsule (20 sources) Proton Pump Inhibitor End: 07-24-2023 take 1 capsule by mouth once daily omeprazole (PriLOSEC) [address] capsule Take 20 mg by mouth daily. 0 07/24/2023 Discontinued Comment on above: Take 20 mg by mouth once daily. 2 ml ondansetron 2 mg/ml injection (6 sources) Serotonin-3 Receptor Antagonist Start: 07-24-2023 End: 07-24-2023 ondansetron (Zofran) injection 4 mg Start: 06-21-2023 End: 06-28-2023 take 1 tablet by mouth every eight hours as needed for nausea and vomiting ondansetron ODT (Zofran-ODT) 4 MG disintegrating tablet Take 1 tablet (4 mg) by mouth every 8 hours as needed for nausea or vomiting for up to 7 days. 20 tablet 0 06/21/2023 06/28/2023 Active Start: 06-21-2023 End: 06-21-2023 ondansetron (Zofran) injecti on 4 mg Start: 04-14-2022 End: 04-14-2022 ondansetron (ZOFRAN) injecti on 4 mg 1000 ml sodium chloride 9 mg /ml injection (10 sources) Start: 07-24-2023 End: 07-24-2023 sodium chloride 0.9 % infusi on Start: 06-21-2023 End: 06-21-2023 sodium chloride 0.9 % bolus 1,000 mL Start: 12-03-2021 End: 12-03-2021 0.9 % sodium chloride bolus Start: 08-14-2021 0.9 % sodium c hloride bolus Start: 08-13-2021 sodium chlorid e (Inhalant) 3 % nebulizer solution 4 mL Start: 08-11-2021 take 1 dose intraven ously twice daily 5-40 mL, IntraVENous, EVERY 12 HOURS SCHEDULED (2 times per day), First dose on Tue08/11/21 at 2100 For Line Patency: Peripheral IV = 5 mL; Midline or Central Line = 10 mL/lumen. If following IV push medication, administer flush at same rate as the IV push. Flush volume is determined by type of infusion therapy being given. For non-viscous solutions use: Peripheral IV = 5 mL Midline or Central Line = 10 mL/lumen For viscous solutions (i.e. blood components, parenteral nutrition, contrast media, or after obtaining blood sample) use: Peripheral IV = 10 mL Midline or Central Line = 20 mL/lumen Post-op Start: 08-11-2021 take 5-40 mL intravenously onc e 5-40 mL, IntraVENous, PRN, Line Care, Starting on Tue08/11/21 at 1804 After every IV line use Post-op Start: 08-11-2021 take 25 mL intraveno usly every hour as needed 25 mL, IntraVENous, at 100 mL/hr, PRN, If patient receiving piggyback infusions without ordered maintenance IV fluids or with frequent/long duration piggyback infusions, Starting on Tue08/11/21 at 1804 Administer at the same rate as the piggyback being infused. Post-op Start: 03-03-2021 End: 03-03-2021 0.9 % sodium chloride bolus sucralfate 100 mg/ml oral suspension (5 sources) Aluminum Complex Start: 07-24-2023 End: 03-13-2024 take 10 mL by mouth three times daily sucralfate (CARAFATE) 100 mg/mL suspension Take 10 mL by mouth three times a day. 0 07/24/2023 03/13/2024 Discontinued (Course of therapy completed) Start: 07-24-2023 End: 08-23-2023 take 10 mL by mouth three times daily sucralfate (Carafate) 1 GM/10ML suspension Take 10 mL (1 g) by mouth 3 times daily. 414 mL 0 07/24/2023 08/23/2023 Active traMADol hydrochloride 50 mg oral tablet (2 sources) Opioid Agonist take 1 tablet by mouth every twelve hours as needed traMADol (ULTRAM) 50 mg tablet Take 50 mg by mouth twice daily as needed for Pain. 0 Active Comment on above: Take 50 mg by mouth twice daily as needed for Pain. vitamin b12 1 mg oral tablet (1 source) Vitamin B12 Start: 3 take 1 tablet by mouth once daily cyanocobalamin (VITAMIN B-12) 1,000 mcg tab Take 1 tablet by mouth once daily. 30 tablet 0 06/19/2023 Active Comment on above: Take 1 tablet by donn once daily. Problems Active Problems Problem Classification Problem Date Documented Da te Episodic/Chronic Abdominal hernia (2 sources) Hiatal hernia; Translations: [Diaphragmatic hernia without obstruction or gangrene] 07-24-2023 Episodic Abdominal pain (20 sources) Lower abdominal pain; Translations: [Abdominal pain] Onset: 5 Resolved: 1 08-05-2017 Episodic Allergic reactions (6 sources) Allergy status to analgesic agent status; Translations: [Allergy status to sulfonamides status] Onset: 2 Episodic Anxiety disorders (3 sources) Anxiety disorder, unspecified; Translations: [Anxiety] Onset: 2 Chronic Chronic obstructive pulmonary disease and bronchiectasis (12 sources) Acute exacerbation of chronic obstructive airways disease; Translations: [Chronic obstructive pulmonary disease with (acute) exacerbation] Onset: 0 Resolved: 1 06-11-2020 Chronic Chronic obstructive pulmonary disease and bronchiectasis (4 sources) Bronchitis; Translations: [Bronchitis, not specified as acute or chronic] Onset: 9 Resolved: 1 09-08-2020 Episodic Diabetes mellitus without complication (20 sources) Type 2 diabetes mellitus without complication; Translations: [Type 2 diabetes mellitus] Onset: 5 Resolved: 8 05-03-2018 Chronic Diseases of white blood cells (5 sources) Leukocytosis; Translations: [Elevated white blood cell count, unspecified] Onset: 1 04-07-2021 Chronic Disorders of lipid metabolism (20 sources) Hyperlipidemia; Translations: [Hyperlipidemia, unspecified] Onset: 5 Resolved: 0 02-06-2015 Chronic Esophageal disorders (20 sources) Gastroesophageal reflux disease; Translations: [Gastro-esophageal reflux disease without esophagitis] Onset: 5 02-06-2015 Chronic Essential hypertension (20 sources) Benign essential hypertension; Translations: [Essential (primary) hypertension] Onset: 5 Resolved: 3 02-06-2015 Chronic Headache; including migraine (2 sources) Headache; including migraine; Translations: [Headache, unspecified] Onset: 2 Immunizations and screening for infectious disease (2 sources) Needs influenza immunization; Translations: [Encounter for immunization] 07-12-2023 Episodic Mood disorders (20 sources) Recurrent major depressive episodes; Translations: [Major depressive disorder, recurrent, unspecified] Onset: 5 Resolved: 3 08-05-2017 Chronic Mood disorders (2 sources) Mood disorders; Translations: [Depression, unspecified] Onset: 2 Mycoses (1 source) Mycosis; Translations: [Candidiasis, unspecified] 08-20-2024 Episodic Nutritional deficiencies (20 sources) Vitamin D deficiency; Translations: [Vitamin D deficiency, unspecified] Onset: 6 11-02-2016 Chronic Osteoarthritis (2 sources) Unspecified osteoarthritis, unspecified site; Translations: [Unspecified osteoarthritis, unspecified site] Onset: 2 Chronic Other aftercare (2 sources) FPC (current) use of oral hypoglycemic drugs; Translations: [terminal gauger (current) use of oral hypoglycemic drugs] Onset: 2 Episodic Other aftercare (2 sources) Other roasterman (current) drug therapy; Translations: [Other skilled nursing (current) drug therapy] Onset: 2 Episodic Other aftercare (2 sources) terminal gauger (current) use of insulin; Translations: [FPC (current) use of insulin] Onset: 2 Episodic Other congenital anomalies (3 sources) Cyst of mediastinum; Translations: [Other specified anomalies of respiratory system] Chronic Other congenital anomalies (2 sources) Congenital cyst of mediastinum; 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] Onset: 1 Chronic Other connective tissue disease (2 sources) Pain in right foot; Translations: [Pain in right foot] Onset: 5 Episodic Other gastrointestinal disorders (2 sources) Irritable bowel syndrome with diarrhea; Translations: [Irritable bowel syndrome with diarrhea] Onset: 5 Chronic Other gastrointestinal disorders (2 sources) Diarrhea, unspecified; Translations: [Diarrhea, unspecified] Onset: 2 Episodic Other liver diseases (20 sources) Steatosis of liver; Translations: [Fatty (change of) liver, not elsewhere classified] Onset: 5 02-06-2015 Chronic Other liver diseases (2 sources) Fatty (change of) liver, not elsewhere classified; Translations: [Fatty (change of) liver, not elsewhere classified] Onset: 2 Chronic Other nervous system disorders (2 sources) Other chronic pain; Translations: [Other chronic pain] Onset: 2 Chronic Other nutritional; endocrine; and metabolic disorders (12 sources) Morbid obesity; Translations: [Morbid (severe) obesity due to excess calories] Onset: 8 05-03-2018 Chronic Other nutritional; endocrine; and metabolic disorders (20 sources) Severe obesity; Translations: [Morbid (severe) obesity due to excess calories] Onset: 8 11-03-2021 Chronic Other nutritional; endocrine; and metabolic disorders (2 sources) Other obesity; Translations: [Other obesity] Onset: 2 Chronic Other nutritional; endocrine; and metabolic disorders (2 sources) Body mass index (BMI) 38.0-38.9, adult; Translations: [Body mass index [BMI] 38.0-38.9, adult] Onset: 2 Chronic Other nutritional; endocrine; and metabolic disorders (2 sources) Hypomagnesemia; Translations: [Hypomagnesemia] Onset: 3 07-28-2023 Chronic Other nutritional; endocrine; and metabolic disorders (2 sources) Morbid (severe) obesity due to excess calories; Translations: [Morbid (severe) obesity due to excess calories (HCC)] Onset: 2 Chronic Other nutritional; endocrine; and metabolic disorders (1 source) Hypomagnesemia; Translations: [Hypomagnesemia] Onset: 3 Chronic Other screening for suspected conditions (not mental disorders or infectious disease) (4 sources) CT of chest abnormal; Translations: [Abnormal findings on diagnostic imaging of other specified body structures] Onset: 1 04-07-2021 Chronic Other skin disorders (1 source) Eruption; Translations: [Rash and other nonspecific skin eruption] 02-21-2025 Episodic Other skin disorders (2 sources) Rash and other nonspecific skin eruption; Translations: [Rash] Onset: 5 Episodic Other upper respiratory infections (10 sources) Acute upper respiratory infection; Translations: [Upper respiratory infection] Onset: 2 Episodic Residual codes; unclassified (2 sources) Insomnia, unspecified; Translations: [Insomnia, unspecified] Onset: 2 Episodic Residual codes; unclassified (1 source) Tobacco user 09-10-2024 Episodic Residual codes; unclassified (1 source) Tobacco use and exposure - finding; Translations: [Tobacco use] 02-24-2025 Episodic Respiratory failure; insufficiency; arrest (adult) (2 sources) Dependence on supplemental oxygen; Translations: [Dependence on supplemental oxygen] Onset: 2 Chronic Screening and history of mental health and substance abuse codes (2 sources) Personal history of nicotine dependence; Translations: [Personal history of tobacco use] 09-10-2024 Episodic Substance-related disorders (20 sources) Smoker; Translations: [Nicotine dependence, unspecified, uncomplicated] Onset: 5 11-02-2016 Chronic Thyroid disorders (20 sources) Graves' disease; Translations: [Thyrotoxicosis with diffuse goiter without thyrotoxic crisis or storm] Onset: 1 01-19-2021 Chronic Thyroid disorders (2 sources) Disorder of thyroid, unspecified; Translations: [Disorder of thyroid, unspecified] Onset: 2 Episodic Unclassified (1 source) History of clinical finding in subject; Translations: [Personal history of noncompliance with medical treatment, presenting hazards to health] Onset: 5 02-06-2015 Unclassified (1 source) Lifestyle Management Onset: 2 02-04-2022 Unclassified (1 source) Cough, unspecified; Translations: [Cough, unspecified] Onset: 2 Unclassified (1 source) Contact with and (suspected) exposure to COVID-19; Translations: [Contact with and (suspected) exposure to COVID-19] Onset: 2 Unclassified (1 source) Patient encounter status 09-10-2024 Unclassified (1 source) Low back pain, unspecified; Translations: [Low back pain, unspecified] Onset: 5 Unclassified (1 source) Pyuria; Translations: [Pyuria] Onset: 5 Past or Other Problems Problem Classification Problem Date Documented Da te Episodic/Chronic Conditions associated with dizziness or vertigo (2 sources) Dizziness and giddiness; Translations: [Dizziness and giddiness] Onset: 12-03-2021 Episodic Diabetes mellitus without complication (20 sources) Steroid-induced hyperglycemia; Translations: [Hyperglycemia, unspecified] Onset: 08-18-2021 Episodic Fluid and electrolyte disorders (2 sources) Hypokalemia; Translations: [Hypokalemia] Onset: 07-28-2023 07-28-2023 Episodic Genitourinary symptoms and ill-defined conditions (20 sources) Abnormal urinalysis; Translations: [Unspecified abnormal findings in urine] Onset: 04-03-2016 Resolved: 09-08-2020 08-05-2017 Episodic Malaise and fatigue (20 sources) Malaise and fatigue; Translations: [Other malaise] Onset: 02-06-2015 03-12-2017 Episodic Noninfectious gastroenteritis (20 sources) Colitis; Translations: [Noninfective gastroenteritis and colitis, unspecified] Onset: 05-18-2019 01-19-2021 Episodic Other connective tissue disease (2 sources) Myalgia, unspecified site; Translations: [Myalgia, unspecified site] Onset: 12-03-2021 Episodic Other gastrointestinal disorders (20 sources) Diarrhea; Translations: [Diarrhea, unspecified] Onset: 03-08-2016 Resolved: 08-05-2017 08-05-2017 Episodic Other liver diseases (4 sources) Alkaline phosphatase raised; Translations: [Abnormal levels of other serum enzymes] Onset: 03-09-2021 03-09-2021 Episodic Other lower respiratory disease (12 sources) Hypoxemia; Translations: [Hypoxemia] Onset: 12-02-2016 Resolved: 09-08-2020 08-05-2017 Episodic Other lower respiratory disease (20 sources) Hypoxia; Translations: [Hypoxemia] Onset: 12-02-2016 Episodic Other lower respiratory disease (2 sources) Shortness of breath; Translations: [Shortness of breath] Onset: 12-03-2021 Episodic Other lower respiratory disease (2 sources) Dyspnea; Translations: [Shortness of breath] Onset: 10-24-2014 Resolved: 09-08-2020 08-10-2021 Episodic Other non-traumatic joint disorders (20 sources) Joint pain; Translations: [Pain in unspecified joint] Onset: 02-06-2015 Resolved: 07-11-2023 05-15-2015 Episodic Other non-traumatic joint disorders (20 sources) Arthralgia of the ankle and/or foot; Translations: [Pain in unspecified ankle and joints of unspecified foot] Onset: 02-06-2015 02-06-2015 Episodic Other nutritional; endocrine; and metabolic disorders (13 sources) Simple obesity ; Translations: [Obesity, unspecified] Onset: 04-03-2016 Resolved: 08-05-2017 08-05-2017 Chronic Other nutritional; endocrine; and metabolic disorders (20 sources) Obese class II; Translations: [Obesity, unspecified] Onset: 05-21-2019 Resolved: 07-11-2023 01-19-2021 Chronic Other screening for suspected conditions (not mental disorders or infectious disease) (20 sources) Thyroid hormone tests abnormal; Translations: [Other specified abnormal findings of blood chemistry] Onset: 05-06-2022 05-30-2022 Episodic Other upper respiratory disease (20 sources) Mediastinal mass; Translations: [Other diseases of mediastinum, not elsewhere classified] Onset: 08-11-2021 Episodic Other upper respiratory disease (2 sources) Nasal congestion; Translations: [Nasal congestion] Onset: 12-03-2021 Episodic Phlebitis; thrombophlebitis and thromboembolism (2 sources) Personal history of other venous thrombosis and embolism; Translations: [Personal history of other venous thrombosis and embolism] Onset: 12-03-2021 Episodic Pneumonia (except that caused by tuberculosis or sexually transmitted disease) (20 sources) Pneumonia; Translations: [Infective pneumonia] Onset: 10-25-2014 Resolved: 07-11-2023 08-05-2017 Episodic Poisoning by other medications and drugs (15 sources) Drug overdose; Translations: [Poisoning by unspecified drugs, medicaments and biological substances, accidental (unintentional), initial encounter] Onset: 11-29-2016 Resolved: 09-08-2020 01-24-2018 Episodic Pulmonary heart disease (7 sources) Pulmonary embolism; Translations: [Other pulmonary embolism with acute cor pulmonale] Onset: 12-09-2016 Resolved: 05-03-2018 05-03-2018 Chronic Pulmonary heart disease (10 sources) Pulmonary embolism; Translations: [Personal history of pulmonary embolism] Onset: 12-02-2016 Resolved: 09-08-2020 05-03-2018 Episodic Residual codes; unclassified (20 sources) Insomnia; Translations: [Insomnia, unspecified] Onset: 02-06-2015 05-15-2015 Episodic Residual codes; unclassified (5 sources) History of noncompliance with medication regimen; Translations: [Personal history of noncompliance with medical treatment, presenting hazards to health] Onset: 02-06-2015 02-06-2015 Episodic Residual codes; unclassified (20 sources) History of clinical finding in subject; Translations: [Patient's noncompliance with other medical treatment and regimen] Onset: 02-06-2015 02-06-2015 Episodic Septicemia (except in labor) (2 sources) Sepsis; Translations: [Sepsis, unspecified organism] Onset: 05-18-2019 Resolved: 09-08-2020 09-08-2020 Episodic Spondylosis; intervertebral disc disorders; other back problems (20 sources) Chronic low back pain; Translations: [Low back pain] Onset: 04-03-2016 11-02-2016 Episodic Suicide and intentional self-inflicted injury (6 sources) Suicide; Translations: [Suicide] Onset: 03-31-2016 Resolved: 08-03-2017 08-03-2017 Chronic Suicide and intentional self-inflicted injury (9 sources) Suicide; Translations: [Intentional self-harm by other specified means, initial encounter] Onset: 03-31-2016 Resolved: 09-08-2020 08-03-2017 Episodic Unclassified (7 sources) Type 2 diabetes mellitus without complication; Translations: [Uncontrolled type 2 diabetes mellitus without complication, without long-term current use of insulin] Onset: 01-18-2017 Resolved: 05-03-2018 05-03-2018 Unclassified (1 source) Cough, unspecified; Translations: [Cough, unspecified] Onset: 04-14-2022 Unclassified (1 source) Contact with and (suspected) exposure to COVID-19; Translations: [Contact with and (suspected) exposure to COVID-19] Onset: 12-03-2021 Unclassified (1 source) Low back pain, unspecified; Translations: [Low back pain, unspecified] Onset: 01-30-2025 Urinary tract infections (20 sources) Pyelonephritis; Translations: [Urinary tract infectious disease] Onset: 03-08-2016 Resolved: 07-11-2023 08-05-2017 Episodic Viral infection (20 sources) COVID-19; Translations: [Pneumonia due to other virus not elsewhere classified] Onset: 08-14-2021 Episodic Results Test Name Value Interpretation Reference Range Facility [facility] 03-10-2025 [facility] HNO ID: [id number] Author: KAJAL DUMONT CT Service: Radiology Author Type: Technologist Type: Allied Health Filed: 03/10/2025 15:47 Note Text: Radiology Service Progress Note PATIENT NAME: Thea Dorman DATE OF SERVICE: March 10, 2025 TIME: 3:47 PM PATIENT IDENTITY VERIFICATION COMPLETED USING TWO (2) IDENTIFIERS: Name and Date of confirmed by patient verbally. FALL SCREENING: Has the patient had 2 falls in the last year or 1 fall with injury or currently using an Ambulatory Assistive Device (Walker, Cane, Wheelchair, Crutches, etc.)? Emergency Room Patient: Screened in ED PATIENT GENDER DATA: Assigned female at . status: : No status: NO. PATIENT RELEVANT IMPLANT DATA REVIEWED: Not Applicable PATIENT PRESENTS WITH AN IMPLANTABLE OR ATTACHED BLEACHER OPERATOR: No RADIOLOGY DEPARTMENT: General X-ray: Exam(s) Completed: Chest X-Ray PERIPHERAL IV DATA: Not applicable SIGNED BY: LYNN Potter March 10, 2025 3:47 PM Normal [facility] Basic metabolic 2000 panelon 03-10-2025 Anion gap [Moles/Vol] 13 mmol/L Normal 8-15 [facility] Comment on above: Order Comment: Sharad wray Type: BLOOD SPECIMENOrdering Facility: [facility] Address: [address] [place] [address] Performed By: #### 2 4321-2, 3040-3, , 64680-1 ####[facility] LABORATORYCLIA [id number] [place] [address] [place] Calcium [Mass/Vol] 9.3 mg/dL Normal 8.5-10.2 [facility] Comment on above: Order Comment: Sharad wray Type: BLOOD SPECIMENOrdering Facility: [facility] Address: [address] [place] [address] Performed By: #### 2 4321-2, 3040-3, , 10530-0 ####MAYBEURY LABORATORYCLIA [id number] [place] [id number] [place] Chloride [Moles/Vol] 107 mmol/L Normal 98-107 [facility] Comment on above: Order Comment: Sharad wray Type: BLOOD SPECIMENOrdering Facility: [facility] Address: [address] [place] [address] Performed By: #### 2 4321-2, 3040-3, 64094-3, 92855-0 ####MAYBEUR[facility] LABORATORYCLIA [id number] [place] [id number] [place] CO2 [Moles/Vol] 24 mmol/L Normal 22-30 [facility] Comment on above: Order Comment: Speci men Type: BLOOD SPECIMENOrdering Facility: [facility] Address: [facility] [place] [address] Performed By: #### 2 4321-2, 3040-3, 16161-2, 23231-4 ####MAYBEUR[facility] LABORATORYCLIA [id number] [place] [address] [place] Creatinine [Mass/Vol] 0.67 mg/dL Normal 0.58-0.96 [facility] Comment on above: Order Comment: Speci men Type: BLOOD SPECIMENOrdering Facility: [facility] Address: [address] [place] [address] Performed By: #### 2 4321-2, 3040-3, 60627-0, 27818-4 ####MAYBE[facility] LABORATORYCLIA [id number] [place] [id number] [place] eGFRcr SerPlBld CKD-EPI 2020 100 mL/min/1.73m??? Normal >=60 [facility] Comment on above: Order Comment: Speci men Type: BLOOD SPECIMENOrdering Facility: [facility] Address: [address] [place] [address] Result Comment: Tania mated Glomerular Filtration Rate (eGFR) is calculated using the 2020 CKD-EPI creatinine equation. This equation utilizes serum creatinine, sex, and age as parameters. The creatinine assay has traceable calibration to isotope dilution-mass spectrometry. Refer to KDIGO guidelines for clinical interpretation. In patients with unstable renal function, e.g. those with acute kidney injury, the eGFR may not accurately reflect actual GFR. Performed By: #### 2 4321-2, 3040-3, 36500-8, 70124-9 ####MAYBE[facility] LABORATORYCLIA [id number] [place] [address] [place] Glucose [Mass/Vol] 126 mg/dL High 74-99 [facility] Comment on above: Order Comment: Speci men Type: BLOOD SPECIMENOrdering Facility: [facility] Address: [address] [place] [address] Result Comment: The [place] Diabetes [employer] (ADA) provides guidance for cutoff values for fasting glucose and random glucose. The ADA defines fasting as no caloric intake for at least 8 hours. Fasting plasma glucose results between 100 to 125 mg/dL indicate increased risk for diabetes (prediabetes). Fasting plasma glucose results greater than or equal to 126 mg/dL meet the criteria for diagnosis of diabetes. In the absence of unequivocal hyperglycemia, results should be confirmed by repeat testing. In a patient with classic symptoms of hyperglycemia or hyperglycemic crisis, random plasma glucose results greater than or equal to 200 mg/dL meet the criteria for diagnosis of diabetes. Reference: Standards of Medical Care in Diabetes 2016, [place] [employer]. Diabetes Care. 2016.39(Suppl 1). Performed By: #### 2 4321-2, 3040-3, 35570-1, 51313-9 ####MAYBEURY LABORATORYCLIA [id number] [place] [address] [place] Potassium [Moles/Vol] 3.6 mmol/L Low 3.7-5.1 [facility] Comment on above: Order Comment: Sharad wray Type: BLOOD SPECIMENOrdering Facility: [facility] Address: [address] [place] [address] Performed By: #### 2 4321-2, 3040-3, , 31199-5 ####MAYBEUR[facility] LABORATORYCLIA [id number] [place] [address] [place] Sodium [Moles/Vol] 144 mmol/L Normal 136-144 [facility] Comment on above: Order Comment: Sharad wray Type: BLOOD SPECIMENOrdering Facility: [facility] Address: [address] [place] [address] Performed By: #### 2 4321-2, 3040-3, , 43560-8 ####MAYBEUR[facility] LABORATORYCLIA [id number] [place] [address] [place] Urea nitrogen [Mass/Vol] 11 mg/dL Normal 7-21 [facility] Comment on above: Order Comment: Sharad wray Type: BLOOD SPECIMENOrdering Facility: [facility] Address: [address] [place] [address] Performed By: #### 2 4321-2, 3040-3, , 79864-3 ####MIL[facility] LABORATORYCLIA [id number] [place] [address] [place] CBC W Auto Differential pane l (Bld)on 03-10-2025 Basophils (Bld) [#/Vol] 0.07 10*3/uL Normal <0.11 [facility] Comment on above: Order Comment: Speci men Type: BLOOD SPECIMENOrdering Facility: [facility] Address: [address] [place] [address] Performed By: #### 5 7021-8 ####MILNER LABORATORYCLIA [id number] [place] [address] [place] Basophils/100 WBC (Bld) 0.7 % Normal [facility] Comment on above: Order Comment: Speci men Type: BLOOD SPECIMENOrdering Facility: [facility] Address: [address] [place] [address] Performed By: #### 5 7021-8 ####MILNER LABORATORYCLIA [id number] [address] [place] [facility] Differential cell count method Nom (Bld) Auto Normal [facility] Comment on above: Order Comment: Speci men Type: BLOOD SPECIMENOrdering Facility: [facility] Address: [address] [place] [address] Performed By: #### 5 7021-8 ####MILNER LABORATORYCLIA [id number] [place] [address] [place] Eosinophils (Bld) [#/Vol] 0.23 10*3/uL Normal <0.46 [facility] Comment on above: Order Comment: Speci men Type: BLOOD SPECIMENOrdering Facility: [facility] Address: [address] [place] [address] Performed By: #### 5 7021-8 ####MILNER LABORATORYCLIA [id number] [address] [place] Eosinophils/100 WBC (Bld) 2.4 % Normal [facility] Comment on above: Order Comment: Speci men Type: BLOOD SPECIMENOrdering Facility: [facility] Address: [address] [place] [address] Performed By: #### 5 7021-8 ####MIL[facility] LABORATORYCLIA [id number] [place] [address] [place] Erythrocyte distribution width (RBC) [Ratio] 15.5 % High 11.5-15.0 [facility] Comment on above: Order Comment: Speci men Type: BLOOD SPECIMENOrdering Facility: [facility] Address: [address] [place] [address] Performed By: #### 5 7021-8 ####MIL[facility] LABORATORYCLIA [id number] [address] [place] Hematocrit (Bld) [Volume fraction] 39.0 % Normal 36.0-46.0 [facility] Comment on above: Order Comment: Speci men Type: BLOOD SPECIMENOrdering Facility: [facility] Address: [address] [place] [address] Performed By: #### 5 7021-8 ####MIL[facility] LABORATORYCLIA [id number] [address] [place] Hemoglobin (Bld) [Mass/Vol] 12.1 g/dL Normal 11.5-15.5 [facility] Comment on above: Order Comment: Speci men Type: BLOOD SPECIMENOrdering Facility: [facility] Address: [address] [place] [address] Performed By: #### 5 7021-8 ####MILNER LABORATORYCLIA [id number] [address] [place] Immature granulocytes (Bld) [#/Vol] 0.04 10*3/uL Normal <0.10 [facility] Comment on above: Order Comment: Speci men Type: BLOOD SPECIMENOrdering Facility: [facility] Address: [address] [place] [address] Performed By: #### 5 7021-8 ####MIL[facility] LABORATORYCLIA [id number] [address] Immature granulocytes/100 WBC (Bld) 0.4 % Normal [facility] Comment on above: Order Comment: Speci men Type: BLOOD SPECIMENOrdering Facility: [facility] Address: [address] [place] [address] Performed By: #### 5 7021-8 ####MILNER LABORATORYCLIA [id number] [address] Lymphocytes (Bld) [#/Vol] 1.92 10*3/uL Normal 1.00-4.00 [facility] Comment on above: Order Comment: Speci men Type: BLOOD SPECIMENOrdering Facility: [facility] Address: [address] [place] [address] Performed By: #### 5 7021-8 ####MILNER LABORATORYCLIA [id number] [address] Lymphocytes/100 WBC (Bld) 19.8 % Normal [facility] Comment on above: Order Comment: Speci men Type: BLOOD SPECIMENOrdering Facility: [facility] Address: [address] [place] [address] Performed By: #### 5 7021-8 ####MILNER LABORATORYCLIA [id number] [address] MCH (RBC) [Entitic mass] 25.5 pg Low 26.0-34.0 [facility] Comment on above: Order Comment: Speci men Type: BLOOD SPECIMENOrdering Facility: [facility] Address: [address] [place] [address] Performed By: #### 5 7021-8 ####MILNER LABORATORYCLIA [id number] [address] MCHC (RBC) [Mass/Vol] 31.0 g/dL Normal 30.5-36.0 [facility] Comment on above: Order Comment: Speci men Type: BLOOD SPECIMENOrdering Facility: [facility] Address: [address] [place] [address] Performed By: #### 5 7021-8 ####MILNER LABORATORYCLIA [id number] [address] MCV (RBC) [Entitic vol] 82.3 fL Normal 80.0-100.0 [facility] Comment on above: Order Comment: Speci men Type: BLOOD SPECIMENOrdering Facility: [facility] Address: [address] [place] [address] Performed By: #### 5 7021-8 ####MILNER LABORATORYCLIA [id number] [place] [address] [place] Monocytes (Bld) [#/Vol] 0.67 10*3/uL Normal <0.87 [facility] Comment on above: Order Comment: Speci men Type: BLOOD SPECIMENOrdering Facility: [facility] Address: [address] [place] [address] Performed By: #### 5 7021-8 ####MILNER LABORATORYCLIA [id number] [place] [address] [place] Monocytes/100 WBC (Bld) 6.9 % Normal [facility] Comment on above: Order Comment: Speci men Type: BLOOD SPECIMENOrdering Facility: [facility] Address: [address] [place] [address] Performed By: #### 5 7021-8 ####MILNER LABORATORYCLIA [id number] [place] [address] [place] Neutrophils (Bld) [#/Vol] 6.79 10*3/uL Normal 1.45-7.50 [facility] Comment on above: Order Comment: Speci men Type: BLOOD SPECIMENOrdering Facility: [facility] Address: [address] [place] [address] Performed By: #### 5 7021-8 ####MILNER LABORATORYCLIA [id number] [place] [id number] [place] Neutrophils/100 WBC (Bld) 69.8 % Normal [facility] Comment on above: Order Comment: Speci men Type: BLOOD SPECIMENOrdering Facility: [facility] Address: [address] [place] [address] Performed By: #### 5 7021-8 ####MILNER LABORATORYCLIA [id number] [place] [address] [place] Nucleated RBC (Bld) [#/Vol] 10*3/uL Normal <0.01 [facility] Comment on above: Order Comment: Speci men Type: BLOOD SPECIMENOrdering Facility: [facility] Address: [address] [place] [address] Performed By: #### 5 7021-8 ####MIL[facility] LABORATORYCLIA [id number] [place] [address] [place] Nucleated RBC/100 WBC (Bld) [Ratio] 0.0 /100 WBC Normal [facility] Comment on above: Order Comment: Speci men Type: BLOOD SPECIMENOrdering Facility: [facility] Address: [address] [place] [address] Performed By: #### 5 7021-8 ####MILNER LABORATORYCLIA [id number] [place] [address] [place] Platelet mean volume (Bld) [Entitic vol] 9.7 fL Normal 9.0-12.7 [facility] Comment on above: Order Comment: Speci men Type: BLOOD SPECIMENOrdering Facility: [facility] Address: [address] [place] [address] Performed By: #### 5 7021-8 ####MILNER LABORATORYCLIA [id number] [place] [address] [place] Platelets (Bld) [#/Vol] 397 10*3/uL Normal 150-400 [facility] Comment on above: Order Comment: Speci men Type: BLOOD SPECIMENOrdering Facility: [facility] Address: [address] [place] [address] Performed By: #### 5 7021-8 ####MIL[facility] LABORATORYCLIA [id number] [place] [address] [place] RBC (Bld) [#/Vol] 4.74 10*6/uL Normal 3.90-5.20 [facility] Comment on above: Order Comment: Speci men Type: BLOOD SPECIMENOrdering Facility: [facility] Address: [address] [place] [address] Performed By: #### 5 7021-8 ####MILNER LABORATORYCLIA [id number] [place] [address] [place] WBC (Bld) [#/Vol] 9.72 10*3/uL Normal 3.70-11.00 [facility] Comment on above: Order Comment: Speci men Type: BLOOD SPECIMENOrdering Facility: [facility] Address: [facility] [place] [address] Performed By: #### 5 7021-8 ####MAYBEURY LABORATORYCLIA [id number] [place] [id number] [facility] D dimer FEU PPP-mCncon 03-10 Fibrin D-dimer FEU (PPP) [Mass/Vol] 310 ng/mL FEU Normal <500 [facility] Comment on above: Order Comment: Speci men Type: BLOOD SPECIMENOrdering Facility: [facility] Address: [address] [place] [address] [place] [address] Performed By: #### 4 8065-7 ####MAYBEURY LABORATORYCLIA [id number] [place] [id number] [facility] ED NOTEon 03-10-2025 ED NOTE HNO ID: [id number] Author: HEIDI YUEN RN Service: Nursing Author Type: Registered Nurse Type: ED Notes Filed: 03/10/2025 16:54 Note Text: VSS. IV removed. Patient is alert, oriented and feeling ok to drive. She takes klonopin at home and functions normally she states. Aware of discharge instructions, follow up care, and 2 medications sent to her pharmacy of choice. Ambulated to leave ERm thankful for care. [facility] ED NOTE HNO ID: [id number] Author: HEIDI YUEN RN Service: Nursing Author Type: Registered Nurse Type: ED Notes Filed: 03/10/2025 16:27 Note Text: Patient is asking for medication to be sent to [facility] in [place]. MD made aware. [facility] ED NOTE HNO ID: [id number] Author: HEIDI YUEN RN Service: Nursing Author Type: Registered Nurse Type: ED Notes Filed: 03/10/2025 15:49 Note Text: Patient continues to be anxious, sitting up on side of bed. She is asking for medication to help relax. MD is aware, orders placed, awaiting pharmacy. [facility] ED NOTE HNO ID: [id number] Author: HEIDI YUEN RN Service: Nursing Author Type: Registered Nurse Type: ED Notes Filed: 03/10/2025 15:27 Note Text: Assisted up to bathroom to void. Patient still feeling anxious. [facility] ED NOTE HNO ID: [id number] Author: HEIDI YUEN RN Service: Nursing Author Type: Registered Nurse Type: ED Notes Filed: 03/10/2025 15:14 Note Text: Feeling slightly panicky after duoneb. Patient states that treatments like that make her feel this way. She was given emotional support and ice chips. VSS. [facility] ED NOTE HNO ID: [id number] Author: HEIDI YUEN, KARINA Service: Nursing Author Type: Registered Nurse Type: ED Notes Filed: 03/10/2025 14:53 Note Text: RT paged to room for duoneb. [facility] ED NOTE HNO ID: [id number] Author: HEIDI YUEN RN Service: Nursing Author Type: Registered Nurse Type: ED Notes Filed: 03/10/2025 14:46 Note Text: Having some dizziness since this morning. [facility] ED NOTE HNO ID: [id number] Author: HEIDI YUEN RN Service: Nursing Author Type: Registered Nurse Type: ED Notes Filed: 03/10/2025 14:45 Note Text: Dr. Molina at for exam. [facility] ED PROV NOTEon 03-10-2025 ED PROV NOTE HNO ID: [id number] Author: BRONWYN MOLINA DO Service: Emergency Medicine Author Type: Physician Type: ED Provider Notes Filed: 03/10/2025 18:52 Note Text: ED Provider Note Patient Name: Thea Dorman : 1965 SERVICE DATE: 03/10/25 History Patient presents with: Chest Pain Shortness of Breath: Since yesterday hard to catch her breath Cough Thea Dorman is a 60-year-old female who is presenting to the emergency department for evaluation of chest discomfort, cough and feelings of shortness of breath. She initially noticed it yesterday and thought this may be a oncoming virus. It seemed to worsen into today. She took her home albuterol though without relief. She has had a cough which has been productive of yellowish sputum. Denies pain or swelling of her legs. Denies sick contacts to her knowledge. PAST MEDICAL HISTORY Diagnosis Date Acute pulmonary embolism (HCC) 12/02/2016 Diabetes (HCC) Drug overdose 11/29/2016 Hypertension Psychiatric disorder Pyelonephritis 09/06/2016 Suicide (HCC) 03/31/2016 PAST SURGICAL HISTORY Procedure Laterality Date CHOLECYSTECTOMY HX HYSTERECTOMY HX TONSILLECTOMY HX FAMILY HISTORY Problem Relation Age of Onset Hypertension Mother Social History Tobacco Use Smoking status: Heavy Smoker Current packs/day: 0.50 Types: Cigarettes Smokeless tobacco: Never Vaping Use Vaping status: Never Used Substance and Sexual Activity Alcohol use: No Drug use: No Sexual activity: Yes ALLERGIES Allergen Reactions Nsaids (Non-Steroid* Hives, Itching Pt gets hives and itching from taking any NSAIDS Sulfa (Sulfonamide * Diarrhea, GI Upset Review of Systems Constitutional: Negative for chills and fever. HENT: Negative for congestion, rhinorrhea and sore throat. Respiratory: Positive for cough, chest tightness, shortness of breath and wheezing. Cardiovascular: Negative for chest pain, palpitations and leg swelling. Gastrointestinal: Negative for abdominal pain, diarrhea, nausea and vomiting. Genitourinary: Negative for dysuria and hematuria. Musculoskeletal: Negative for back pain. Skin: Negative for pallor, rash and wound. Neurological: Negative for headaches. Psychiatric/Behavioral: Negative for confusion. Physical Exam Vitals [03/10/25 1443] BP Pulse Temp Temp src Resp SpO2 Weight Height 108/63 75 36.8 ?C (98.3 ?F) Oral 20 95 % 92 kg (202 lb 13.2 oz) -- Physical Exam Vitals and nursing note reviewed. Constitutional: General: She is not in acute distress. Appearance: She is well-developed. HENT: Head: Normocephalic and atraumatic. Right Ear: External ear normal. Left Ear: External ear normal. Eyes: General: No scleral icterus. Right eye: No discharge. Left eye: No discharge. Conjunctiva/sclera: Conjunctivae normal. Pupils: Pupils are equal, round, and reactive to light. Cardiovascular: Rate and Rhythm: Normal rate and regular rhythm. Heart sounds: No murmur heard. No friction rub. No gallop. Pulmonary: Effort: Pulmonary effort is normal. No respiratory distress. Breath sounds: Wheezing (Faint) and rhonchi present. No rales. Comments: Course expiratory breath sounds Chest: Chest wall: No tenderness. Abdominal: General: Bowel sounds are normal. There is no distension. Palpations: Abdomen is soft. There is no mass. Tenderness: There is no abdominal tenderness. There is no guarding or rebound. Musculoskeletal: General: No tenderness or deformity. Normal range of motion. Cervical back: Normal range of motion and neck supple. Lymphadenopathy: Cervical: No cervical adenopathy. Skin: General: Skin is warm and dry. Coloration: Skin is not pale. Findings: No erythema or rash. Neurological: Mental Status: She is alert and oriented to person, place, and time. Diagnostic Testing ED Labs Ordered and Reviewed - No data to display Procedures ED Course / Clinical Impression ED Course as of 03/10/251849 Bronwyn Molina I's Documentation Sun Mar 10, 2025 1525 d Dimer: 310 Clinical Impressions as of 03/10/251849 Bronchitis Hypomagnesemia Upper respiratory tract infection, unspecified type Chronic obstructive pulmonary disease, unspecified COPD type (HCC) MDM / Disposition / Plan Thea Dorman is a 60-year-old female who is presenting to the emergency department with URI symptoms in the setting of COPD. On auscultation she does have rather coarse breath sounds likely consistent with bronchitis. Cardiac workup here is unremarkable. D-dimer negative. Chest x-ray actually negative for pneumonia. Clinically however with her COPD and clear URI symptoms and auscultation of rhonchi/coarse breath sounds she will be started on azithromycin. She has albuterol at home. Vitals otherwise stable. She will be discharged to home. History and Record Review External record(s) reviewed: PDMP reviewed. Differential Diagnoses - COPD - (more content not included)... Normal [facility] EKGon 03-10-2025 Electrocardiogram Ventricular Rate : 8 1 BPM Atrial Rate : 81 BPM P-R Interval : 150 ms QRS Duration : 82 ms Q-T Interval : 350 ms QTC Calculation(Bazett) : 406 ms Calculated P [place] : 43 degrees Calculated R [place] : -1 degrees Calculated T [place] : 41 degrees NORMAL SINUS RHYTHM NORMAL ECG Confirmed by BRONWYN MOLINA DO ([id number]) on 03/10/2025 6:51:51 PM NAME : THEA DORMAN PID : [id number] : 1965 Gender : Female Race : ORD : Procedure Date : Mar 10 2025 14:39:31 Edit Date : Mar 10 2025 18:51:55 Diagnosis: NORMAL SINUS RHYTHM NORMAL ECG Confirmed by BRONWYN MOLINA DO ([id number]) on 03/10/2025 6:51:51 PM Test Reason : Location : 1 : ER ED Overread By : BRONWYN MOLINA DO Edited By : BRONWYN MOLINA DO Referred By : , Acquired by : Kathie yuen [facility] Fibrin D-dimer FEU (PPP) [Ma ss/Vol]on 03-10-2025 D DIMER AGE-RELATED CUTOFF 600 ng/mL FEU [facility] Comment on above: Order Comment: Specglenn wray Type: BLOOD SPECIMENOrdering Facility: [facility] Address: [address] [place] [address] Performed By: #### 4 8065-7 ####[facility]IA [id number] [place] [address] [place] [facility] Lipase SerPl-cCncon 03-10-20 25 Lipase [Catalytic activity/Vol] 26 U/L Normal 16 [facility] Comment on above: Order Comment: Specglenn wray Type: BLOOD SPECIMENOrdering Facility: [facility] Address: [address] [place] [address] Performed By: #### 2 4321-2, 3040-3, 30371-9, 42618-0 ####[facility]ORATORYCLIA [id number] [place] [address] [place] Magnesium SerPl-mCncon 03-10 Magnesium [Mass/Vol] 1.1 mg/dL Low 1.7-2.3 [facility] Comment on above: Order Comment: Specglenn wray Type: BLOOD SPECIMENOrdering Facility: [facility] Address: [address] [place] [address] Performed By: #### 2 4321-2, 3040-3, 41043-8, 07759-1 ####[facility]ORATORYCLIA [id number] [place] [id number] [place] NT-proBNP SerPl-mCncon 03-10 Natriuretic peptide.B prohormone N-Terminal [Mass/Vol] 58 pg/mL Normal <125 [facility] Comment on above: Order Comment: Speci men Type: BLOOD SPECIMENOrdering Facility: [facility] Address: [address] [place] [id number] Performed By: #### 2 4321-2, 3040-3, 13573-4, 70679-4 ####[facility]ORATORYCLIA [id number] [place] [address] [place] XR CHEST 2V FRONTAL/LATon XR CHEST 2V FRONTAL/LAT * * *Final Report* * * DATE OF EXAM: Mar 10 2025 3:35PM MDX [id number] - XR CHEST 2V FRONTAL/LAT / PROCEDURE REASON: Cough * * * * Physician Interpretation * * * * EXAMINATION: CHEST RADIOGRAPH (2 VIEW FRONTAL and LATERAL) CLINICAL HISTORY: Cough, Shortness of breath MQ: XC2_6 EXAM DATE/TIME: 03/10/2025 3:35 PM COMPARISON: Chest x-ray dated 01/14/2025 RESULT: Lines, tubes, and devices: None. Lungs and pleura: No consolidation. No lung mass. No pleural effusion. No pneumothorax. Cardiomediastinal silhouette: Normal cardiomediastinal silhouette. Bones and soft tissues: Mild degenerative changes. IMPRESSION: No acute radiographic abnormality. [employer]or Ore Crushing: KENAN Transcribe Date/Time: Mar 10 2025 4:01P Dictated by : ANGEL SUNG MD This examination was interpreted and the report reviewed and electronically signed by: ANGEL SUNG MD on Mar 10 2025 4:01PM EST [id number] Normal [facility] Emergency Department Summary on 02-24-2025 Emergency Department Summary [facility] Medical Records Department [address] [place] [address] Emergency Department Summary 02/24/25 MR#: [id number] Acct: [id number] Name: THEA DORMAN Rep #: [id number] : 1965 60 From: Rupesh Jensen DO PCP: Care Physician,No Primary Status:DEP ER Location: ED HPI History of Present Illness Chief Complaint: Rash Informant: patient Onset/Context/Timing Onset: Days (2) Context: Gradual Onset Timing: Continuous Quality: Aching, burning Location: Left gluteal area Worsened by: Hot shower Relieved by: Nothing Narrative Narrative: Patient presents with a rash on her left gluteal area that has been getting worse over the past 2 days. Patient describes her pain as aching and burning. Patient states it is over the left gluteal area. Patient is concerned that this could be shingles. Patient states it is worse when she takes a shower. Patient states her pain has been constant. Patient denies any fevers or chills. Patient denies any discharge or drainage. Patient denies any paresthesias or weakness. PFSH [facility] Medical History (Updated 02/24/25 @ 14:[address] Rupesh Jensen, DO) Hypercholesterolemia Hypertension Type 2 diabetes mellitus Anxiety Depression Home Medications ???Medication ???Instructions ???Recorded ???Last Taken ???Type hydrocodone-acetaminophe n 5-325mg 1 tab PO Q6H PRN PRN Pain 3 days 02/24/25 Unknown Rx 5mg-325mg #10 TABLETS valacyclovir 1 gram tablet 1,000 mg PO TID #20 tabs 02/24/25 Unknown Rx (Valtrex) Allergy/AdvReac Type Severity Reaction Status Date / Time NSAIDS (Non-Steroidal Allergy Hives Verified 02/24/25 14:03 Anti-Inflamma Sulfa (Sulfonamide AdvReac Diarrhea Verified 02/24/25 14:03 Antibiotics) Surgical History (Updated 02/24/25 @ 14:[address] Rupesh Jensen, ) Hx of removal of cyst History of hysterectomy Hx of cholecystectomy Social History (Updated 02/24/25 @ 14:[address] Rupesh Jensen, DO) Smoking Status: Current every day smoker ROS ROS ED Constitutional Constitutional ED: Denies chills or fever(s) Eyes Eyes: Denies blurry vision or change in vision ENT ENT ED: Denies rhinorrhea or sore throat Cardiovascular Cardiovascular: Denies chest pain or palpitations Respiratory/Chest Respiratory/Chest: Denies cough or dyspnea Gastrointestinal Gastrointestinal: Denies nausea or vomiting Genitourinary Genitourinary ED: Denies dysuria or hematuria Musculoskeletal Musculoskeletal: Denies back pain or neck pain Integumentary Reports rash; Denies abscess Neurologic Neurologic: Denies headache(s) or weakness Allergic/Immunologic Allergic/Immunologic ED: Denies mouth swelling or urticaria EXAM Physical Exam Const Vital Signs: 02/24/25 14:00 Temperature 98.2 F Temperature Source Oral Pulse Rate 80 Respiratory Rate 18 Blood Pressure 144/83 H Blood Pressure Mean 103 Pulse Ox 98 Oxygen Delivery Method Room Air Positive well nourished and well developed General Appearance ED: well developed and NAD HEENT Reports moist mucous membranes Neck supple and no JVD Neuro oriented x3, CN's II-XII intact bilaterally and no sensory deficits noted Sensorium / Orientation: alert Motor Exam: strength 5/5 throughout Skin Skin Narrative: There is an erythematous rash with some vesicles noted over the left gluteal area. There is no warmth noted. There is no discharge or drainage noted. There are no petechia noted. There is no i nvolvement of the palms or soles. There is no involvement of the mucous membranes. MDM MDM MDM Narrative Medical decision making narrative: Patient was advised that this does appear to be varicella-zoster. Patient was given a prescription for valacyclovir and a short course of [place]. Patient was instructed to follow-up with her primary care physician in 5 to 7 days. Patient understood and was agreeable plan. All questions were answered. Discharge Plan Triage Chief Complaint: Rash ED Provider: Rupesh Jensen Dx/Rx/DC Orders Clinical Impression: Varicella zoster, Hypertension, Tobacco use Instructions: ED Shingles (Herpes Zoster) Prescriptions: New hydrocodone-acetaminophe n 5-325 mg tablet 1 tab PO Q6H PRN PRN (Reason: Pain) 3 Days Qty: 10 0RF valacyclovir [Valtrex] 1 gram tablet 1,000 mg PO TID Qty: 20 0RF Primary Care Provider: NOT,DEFINED Referrals: NOT,DEFINED [Primary Care Provider] - 3-5 Days Print Language: New Zealander Disposition Disposition: Home, Self Care What to do if you have Problems For any increased pain, shortness of breath, bleeding, nausea or vomiting, chest pain, or any unexpected problems, contact your Primary Care Provider. Call [facility] ([phone]) or report to the closest Emergency Room. Call 911 if (more content not included)... Normal [facility] 36on 02-22-2025 36 I could not pend thi s order because I do not see it in her chart at all. Medication name: albuterol sulfate Medication dosage: 90 mcg (Micrograms) Monthly quantity needed: asked for 3 because it is only $20.00 01/30/25 last saw you [facility] 36 Medication name: albuterol sulfate Medication dosage: 90 mcg (Micrograms) Monthly quantity needed: asked for 3 because it is only $20.00 How many day supply requestin year Medication route: inhalation (inhaler) Medication administration time(s): says 2 puffs as needed If taking medication PRN, reason for taking medication: N/A If this is a controlled substance do you receive this or any other controlled medication from any other doctor or facility: No Ordering provider: thought Dr. Weeks at one time, I could not find this med in her chart Date of last office visit: 01.30.25 Date of next office visit: 05.09.25 Date of last refill: (see medication tab): does not have the box to check for any info Updated/Validated preferred pharmacy: Yes in chart [facility] Patient instructed to contact the pharmacy prior to picking up the medication: N/A mail order [facility] CNOVon 02-21-2025 CNOV Office Visit (NADIA ) -------- THEA DORMAN ([id number]) 1965 F Date Time Provider Department 02/21/25 11:55 AM ASHLEY AMOR During your visit today, we recorded the following information about you: Temperature Pulse Respiration Blood pressure 98.3 degrees 70/minute 18/minute 131/76 Weight Height 90.8 kg 1.651 m Cynthia Luz 02/21/2025 12:31 PM Attested -------- Attestation signed by Ashley Amor APRN.CNP at 02/21/2025 12:32 PM I attest that I was present, not working on other tasks, and directing the student during this visit. I have reviewed the assessment above, agree with the above documentation of this student, and have made modifications to reflect my full assessment and plan. Ashley Amor APRN.CNP Signature: Ashley Amor APRN.CNP Date: 02/21/2025 Time: 12:32 PM -------- HPI Thea Dorman is a 60 year old female who presents with a rash SUBJECTIVE Symptoms include: Positive for a rash on her left buttock, that is painful, itches and gu Denies drainage, fevers, chills Patient reports that she has been under more stress lately OTC meds/remedies that patient has tried: hydrocortisone cream, which made it burn more. Exposures: Sick contacts? No Symptoms started approximately 2 days ago Allergies: Nsaids (Non-Steroid* Hives, Itching Comment:Pt gets hives and itching from taking any NSAIDS Sulfa (Sulfonamide * Diarrhea, GI Upset PAST MEDICAL HISTORY Diagnosis Date Acute pulmonary embolism (HCC) 12/02/2016 Diabetes ([facility]) Drug overdose 11/29/2016 Hypertension Psychiatric disorder Pyelonephritis 09/06/2016 Suicide ([facility]) 03/31/2016 PAST SURGICAL HISTORY Procedure Laterality Date CHOLECYSTECTOMY HX HYSTERECTOMY HX TONSILLECTOMY HX Current Outpatient Medications Medication Sig Dispense Refill colesevelam (WELCHOL) 625 mg tablet Take 1,250 mg by mouth two times a day with meals. psyllium (METAMUCIL) 3.4 gram packet Take 1 Packet by mouth once daily. pantoprazole sodium (PANTOPRAZOLE ORAL) Take 40 mg by mouth two times a day. metFORMIN (GLUCOPHAGE) 1,000 mg tablet Take 1,000 mg by mouth two times a day with meals. albuterol HFA (PROVENTIL HFA, VENTOLIN HFA) 90 mcg/actuation inhaler Inhale 2 Puffs as instructed every 6 hours as needed for wheezing/shortness of breath. 8 g 0 linaGLIPtin (TRADJENTA) 5 mg tab Take 1 tablet by mouth once daily. 90 tablet 3 amLODIPine (NORVASC) 10 mg tablet Take 10 mg by mouth once daily. dapagliflozin 10 mg tab Take 10 mg by mouth daily with breakfast. glimepiride (AMARYL) 4 mg tablet Take 4 mg by mouth twice daily. irbesartan (AVAPRO) 150 mg tablet Take 150 mg by mouth daily at bedtime. PARoxetine (PAXIL) 20 mg tablet Take 20 mg by mouth twice daily. atorvastatin (LIPITOR) 40 mg tablet Take 40 mg by mouth once daily. clonazePAM (KLONOPIN) 0.5 mg tablet Take 1 mg by mouth two times a day. cholecalciferol (VITAMIN D) 1,000 unit tab tablet Take 1,000 Units by mouth once daily. mirtazapine (REMERON) 30 mg tablet Take 45 mg by mouth daily at bedtime. No current facility-administered medications for this visit. Family History Problem Relation Age of Onset Hypertension Mother Tobacco Use: High Risk (01/27/2025) Patient History Smoking Tobacco Use: Heavy Smoker Smokeless Tobacco Use: Never Passive Exposure: Not on file Review of Systems Constitutional: Negative for chills and fever. Skin: Positive for rash. All other systems reviewed and are negative. Objective BP 131/76 (BP Site: Right Arm, BP Position: Sitting, BP Cuff Size: Regular Adult) Pulse 70 Temp 36.8 ?C (98.3 ?F) (Right Tympanic) Resp 18 Ht 165.1 cm (5' 5) Wt 90.8 kg (200 lb 2.8 oz) SpO2 94% BMI 33.31 kg/m? Physical Exam Constitutional: General: She is not in acute distress. Appearance: Normal appearance. She is normal weight. She is not ill-appearing. HENT: Head: Normocephalic. Right Ear: Tympanic membrane normal. Left Ear: Tympanic membrane normal. Nose: Nose normal. Mouth/Throat: Mouth: Mucous membranes are moist. Pharynx: Oropharynx is clear. Eyes: Extraocular Movements: Extraocular movements intact. Conjunctiva/sclera: Conjunctivae normal. Cardiovascular: Rate and Rhythm: Normal rate and regular rhythm. Pulses: Normal pulses. Heart sounds: Normal heart sounds. Pulmonary: Effort: Pulmonary effort is normal. Breath sounds: Normal breath sounds. Musculoskeletal: General: Normal range of motion. Cervical back: Normal range of motion and neck supple. Skin: General: Skin is warm and dry. Findings: Rash present. Rash is papular. Comments: To left buttock Neurological: General: No focal deficit present. Mental Status: She is alert and oriented to person, place, and (more content not included)... Normal [facility] HSV+VZV DNA CHRIS+probe Ql (Un sp spec)on 02-21-2025 HSV 1 DNA CHRIS+probe Ql (Unsp spec) Not detected Normal Not Detected [facility] Comment on above: Order Comment: Speci men Type: SWAB Ordering Facility: [facility] Address: [address] [place] [address] Performed By: #### 3 3027-4 #### [facility] CLIA [id number] [address] [place] [address] [place] HSV 2 DNA CHRIS+probe Ql (Unsp spec) Not detected Normal Not Detected [facility] Comment on above: Order Comment: Sharad wray Type: SWAB Ordering Facility: [facility] Address: [address] [place] [address] Performed By: #### 3 3027-4 #### [facility] CLIA [id number] [address] [place] [address] [place] VZV DNA CHRIS+probe Ql (Unsp spec) Not detected Normal Not Detected [facility] Comment on above: Order Comment: Melissai kamala Type: SWAB Ordering Facility: [facility] Address: [address] [place] [address] Performed By: #### 3 3027-4 #### [facility] CLIA [id number] [address] [place] [address] [place] 36on 02-01-2025 36 A1c is 7.2. This dina t up just a little bit. At this point we will continue her current diabetic meds but try to decrease carbohydrates and increase exercise. Normal [facility] 36on 01-31-2025 36 That is possible. Recheck again in 3 months. Normal [facility] 36 1. Please call lab a nd see if we can add an A1c. #2 cholesterol and triglycerides look good. Continue low-fat diet and exercise. White blood cell counts are mildly elevated asked patient if she is having any cough or runny nose? If she is not we will follow back up with her in 3 months and recheck. Normal [facility] CBC W Auto Differential pane l (Bld)on 01-31-2025 Basophils (Bld) [#/Vol] 68 10*3/uL [facility] Basophils/100 WBC (Bld) 0.6 % [facility] Eosinophils (Bld) [#/Vol] 158 10*3/uL [facility] Eosinophils/100 WBC (Bld) 1.4 % [facility] Erythrocyte distribution width (RBC) [Ratio] 13.6 % 11.0 - 15.0 % [facility] Hematocrit (Bld) [Volume fraction] 40.7 % 35.0 - 45.0 % [facility] Hemoglobin (Bld) [Mass/Vol] 12.5 g/dL 11.7 - 15.5 g/dL [facility] Lymphocytes (Bld) [#/Vol] 3108 10*3/uL [facility] Lymphocytes/100 WBC (Bld) 27.5 % [facility] MCH (RBC) [Entitic mass] 26 pg Low 27.0 - 33.0 pg [facility] MCHC (RBC) [Mass/Vol] 30.7 g/dL Low 32.0 - 36.0 g/dL [facility] Comment on above: For adults, a slight decrease in the calculated MCHC value (in the range of 30 to 32 g/dL) is most likely not clinically significant; however, it should be interpreted with caution in correlation with other red cell parameters and the patient's clinical condition. MCV (RBC) [Entitic vol] 84.6 fL 80.0 - 100.0 fL [facility] Monocytes (Bld) [#/Vol] 780 10*3/uL [facility] Monocytes/100 WBC (Bld) 6.9 % [facility] Neutrophils (Bld) [#/Vol] 7187 10*3/uL [facility] Neutrophils/100 WBC (Bld) 63.6 % [facility] Platelet mean volume (Bld) [Entitic vol] 10 fL 7.5 - 12.5 fL [facility] Platelets (Bld) [#/Vol] 447 10*3/uL High [facility] RBC (Bld) [#/Vol] 4.81 10*6/uL [facility] WBC (Bld) [#/Vol] 11.3 10*3/uL High [facility] Comprehensive metabolic 1998 panelon 01-31-2025 Albumin [Mass/Vol] 4.5 g/dL 3.6 - 5.1 g/dL [facility] [facility] Albumin/Globulin [Mass ratio] 1.7 {ratio} [facility] ALP [Catalytic activity/Vol] 97 U/L 37 - 153 U/L [facility] ALT [Catalytic activity/Vol] 11 U/L 6 - 29 U/L [facility] AST [Catalytic activity/Vol] 15 U/L 10 - 35 U/L [facility] Bilirubin [Mass/Vol] 0.3 mg/dL 0.2 - 1 .2 mg/dL [facility] Calcium [Mass/Vol] 9.9 mg/dL 8.6 - 10. 4 mg/dL [facility] Chloride [Moles/Vol] 104 mmol/L 98 - 11 0 mmol/L [facility] CO2 [Moles/Vol] 22 mmol/L 20 - 32 mmol/L [facility] Creatinine [Mass/Vol] 0.75 mg/dL 0.50 - 1.05 mg/dL [facility] GFR/1.73 sq M.predicted among non-blacks MDRD (S/P/Bld) [Vol rate/Area] 91 mL/min/{1.73_m2} > OR = 60 mL/min/1.73m2 [facility] Globulin (S) [Mass/Vol] 2.6 g/dL [facility] Glucose [Mass/Vol] 114 mg/dL High 65 - 99 mg/dL [facility] Comment on above: Fasting reference interval For someone without known diabetes, a glucose value between 100 and 125 mg/dL is consistent with prediabetes and should be confirmed with a follow-up test. Potassium [Moles/Vol] 4.2 mmol/L 3.5 - 5.3 mmol/L [facility] Protein [Mass/Vol] 7.1 g/dL 6.1 - 8.1 g/dL [facility] Sodium [Moles/Vol] 137 mmol/L 135 - 146 mmol/L [facility] Urea nitrogen [Mass/Vol] 11 mg/dL 7 - 25 mg/dL [facility] Urea nitrogen/Creatinine [Mass ratio] SEE NOTE: [facility] Comment on above: Not Reported: BUN an d Creatinine are within reference range. Lipid 1996 panelon 5 Cholesterol [Mass/Vol] 128 mg/dL NINF - 200 mg/dL [facility] Cholesterol in HDL [Mass/Vol] 45 mg/dL Low > OR = 50 [facility] Cholesterol in LDL [Mass/Vol] 61 mg/dL mg/dL (calc) [facility] Comment on above: Reference range: <10 0 Desirable range <100 mg/dL for primary prevention; <70 mg/dL for patients with CHD or diabetic patients with > or = 2 CHD risk factors. LDL-C is now calculated using the Marcus-Ger calculation, which is a validated novel method providing better accuracy than the Friedewald equation in the estimation of LDL-C. Marcus SS et al. MICHAEL. 2013;310(19): 2718-7362 (http://education.[employer]/faq/RSJ381) Cholesterol non HDL [Mass/Vol] 83 mg/dL [facility] Comment on above: For patients with di abetes plus 1 major ASCVD risk factor, treating to a non-HDL-C goal of <100 mg/dL (LDL-C of <70 mg/dL) is considered a therapeutic option. Cholesterol.total/Cho lesterol in HDL [Mass ratio] 2.8 {ratio} [facility] Triglyceride [Mass/Vol] 138 mg/dL [facility] - 150 mg/dL [facility] No Panel Informationon 01-31 Interpretation and review of laboratory results Abnormal [facility] Office Visiton 01-30-2025 Follow-up visit [id number] Marleny Dorman 1965 F Date Provider Department Center 01/30/2025 [facility] Family History Problem Relation Age of Onset High Blood Pressure Father Arthritis Brother Hyperlipidemia Mother Diabetes Mother High Blood Pressure Mother Arthritis Mother Hyperlipidemia Father Family Status - Relation Status Age at Father Alive Brother Alive Mother Alive Level of Service:87204 [place] OFFICE/OUTPATIENT ESTABLISHED MOD MDM 30 MIN Reason for Visit and Comments: Follow-up [463232] Vaginitis/Bacterial Vaginosis [936028] - Was recently on ATB for UTI and now has Vaginal Yeast symptoms Pain [136] - Side pain to left side, possibly pulled muscle Normal [facility] Progress Noteon 01-30-2025 Progress Note [facility] - [address] [facility] [address] Dept: [phone] Dept Loc: [phone] Reason for Visit: Follow-up, Vaginitis/Bacterial Vaginosis (Was recently on ATB for UTI and now has Vaginal Yeast symptoms ), and Pain (Side pain to left side, possibly pulled muscle ) Assessment and Plan 1. Type 2 diabetes mellitus without complication, without long-term current use of insulin (HCC) A1c CMP ordered patient advised to continue metformin and Stevennta has had diabetic education she is to follow-up yearly with her eye exam. - Bilateral screening mammogram with tomosynthesis - Microalbumin / creatinine, urine ratio - CBC auto differential - Comprehensive metabolic panel - Lipid panel 2. Severe obesity (BMI 35.0-39.9) with comorbidity (HCC) - Bilateral screening mammogram with tomosynthesis 3. Major depressive disorder, recurrent severe without psychotic features (HCC) this is a chronic stable issue she is continuing the Paxil for. Psychiatry as well as on clonazepam through psychiatry - Bilateral screening mammogram with tomosynthesis - Microalbumin / creatinine, urine ratio - CBC auto differential - Comprehensive metabolic panel - Lipid panel 4. Essential hypertension, benign this is a chronic stable issue we will continue to monitor blood pressure is on Avapro. Low-salt diet - Bilateral screening mammogram with tomosynthesis - Microalbumin / creatinine, urine ratio - CBC auto differential - Comprehensive metabolic panel - Lipid panel 5. Screening mammogram, encounter for - Bilateral screening mammogram with tomosynthesis 6. Lumbar back pain I reviewed records from the emergency room I ordered x-rays of the lumbar spine. CT scan showed no acute findings. Patient currently completed all antibiotics - oxyCODONE-acetaminophen (Percocet) 5-325 MG tablet; Take 1 tablet by mouth every 8 hours as needed for severe pain (7-10) for up to 5 days., Starting Tue01/30/2025, Until 02/04/2025 at 2359, Print - XR lumbar spine 2 or 3 views 7. Current smoker Ordered ct scan. And scheduled. Patient did not get done, I would advise when patient can to get this done this is important to get the CT lung screening. She is aware I would advise to stop smoking she is aware of the deleterious effects of smoking current treatment plan is effective, no change in therapy, orders and follow up as documented in EMR, lab results reviewed with patient, repeat labs ordered prior to next appointment, reviewed compliance with lifestyle measures, reviewed diet, exercise and weight control, reviewed medications and side effects in detail Return visit in 3 month. Subjective Pain Pertinent negatives include no fever or headaches. This is a 60-year-old female who was recently in the emergency room. After experiencing lumbar back pain they checked a CT scan to rule out any kidney stones which was negative. Patient is still experiencing the back pain. She states it is severe she has pain when she is ambulating she is denying any numbness or tingling as stated CT scan was negative. No x-rays done. Patient states the muscle relaxants were just giving her for side effects and she does not tolerate she also does not tolerate anti-inflammatories as she states she has an allergic reaction to them. Patient is a type II diabetic currently she has not been compliant in checking her blood sugars. Her last A1c however had showed significant improvement. She and I discussed seeing ophthalmology yearly. In the past as well we had ordered a CT lung screening. Patient has never completed advised patient to get this done as she does have a history of tobacco use. Patient states she has been very busy taking care of a friend. Who recently underwent surgery. Advised patient however it is important to get these test done Review of Systems Constitutional: Negative. Negative for activity change, appetite change and fever. HENT: Negative. Negative for congestion. Eyes: Negative. Negative for discharge. Respiratory: Negative. Negative for chest tightness. Cardiovascular: Negative. Gastrointestinal: Negative. Endocrine: Negative. Negative for cold intolerance. Genitourinary: Negative for difficulty urinating. Musculoskeletal: Negative. Neurological: Negative. Negative for dizziness, facial asymmetry and headaches. Hematological: Negative. Allergies[1] Current Medications[2] Problem List[3] Medical History[4] Social History Tobacco Use Smoking status: Every Day Current packs/day: 0.50 Average packs/day: 0.5 packs/day for 40.0 years (20.0 ttl pk-yrs) Types: Cigarettes Smokeless tobacco: Never Substance Use Topics Alcohol use: No Surgical History[5] Family History[6] Health Maintenance Topic Date Due MMR Vaccines (1 of 1 - Standard series) Never done Diabetes: Foot (more content not included)... Normal [facility] 36on 01-28-2025 36 S: Patient spoke [facility] nurse regarding yeast infection and back strain B: Onset of symptoms/concern few days A: Took Cipro for UTI and now she has a yeast infection. States she is having vaginal itching and white discharge. No fever or vaginal odor . She also picked up case of water and pulled her back muscle 7.5/10. Taking tylenol, lidocaine patches with no relief. She is wanting to be evaluated. She has an appointment on Tuesday but does not feel she can wait. R: No earlier appointments available. States she will keep her Tuesday appointment and if pain or yeast infection becomes to uncomfortable she will be seen in [facility]. Home care advise provided. Patient understands care advice. No further needs at this time. Patient instructed to call back with new or worsening symptoms. Reason for Disposition [1] Symptoms of a yeast infection (i.e., itchy, white discharge, not bad smelling) AND [2] not improved > 3 days following Care Advice Protocols used: Vaginal Ckeoqyshy-NSYWQ-ZV Normal [facility] Bacteria Ur Culton 5 Bacteria identified Cx Nom (U) CULTURE, URINE: No growth (<1,000 CFU/ml) Normal [facility] Comment on above: Performed By: #### 2 4356-8 #### [facility] CLIA [id number] [address] [place] [address] [place] #### 630-4 #### [facility] CLIA [id number] [address] [place] [address] [place] ED NOTEon 01-27-2025 ED NOTE HNO ID: [id number] Author: TOSHIA MARTINO RN Service: ? Author Type: Registered Nurse Type: ED Notes Filed: 01/27/2025 13:13 Note Text: Pt arrives with complaint of LLQ pain for a couple of weeks. Pt recently completed course of antibiotic with dx of UTI and pulled muscle. Pt also reports nausea and I got a horrible yeast infection from the antibiotic. Pt report appt with PCP this coming Tuesday. Normal [facility] ED PROV NOTEon 01-27-2025 ED PROV NOTE HNO ID: [id number] Author: JOE ESCOBEDO MD Service: ? Author Type: Physician Type: ED Provider Notes Filed: 01/27/2025 13:54 Note Text: ED Provider Note Patient Name: Thea Dorman : 1965 SERVICE DATE: 01/27/25 History Patient presents with: Abdominal Pain Nausea Pt presenting for ~2 weeks of LLQ pain worse with movement/activity. She was seen at [facility] with workup showing possible UTI; she had no urinary symptoms though finished abx 1 week ago. She has an appt this upcoming week. She came back as it has not gone away. She is currently taking care of her friend physically right now. She reports no urinary or bowel symptoms. No changes with PO. PAST MEDICAL HISTORY Diagnosis Date Acute pulmonary embolism (HCC) 12/02/2016 Diabetes (HCC) Drug overdose 11/29/2016 Hypertension Psychiatric disorder Pyelonephritis 09/06/2016 Suicide (HCC) 03/31/2016 PAST SURGICAL HISTORY Procedure Laterality Date CHOLECYSTECTOMY HX HYSTERECTOMY HX TONSILLECTOMY HX FAMILY HISTORY Problem Relation Age of Onset Hypertension Mother Social History Tobacco Use Smoking status: Heavy Smoker Types: Cigarettes Smokeless tobacco: Never Vaping Use Vaping status: Never Used Substance and Sexual Activity Alcohol use: No Drug use: No Sexual activity: Yes ALLERGIES Allergen Reactions Nsaids (Non-Steroid* Hives, Itching Pt gets hives and itching from taking any NSAIDS Sulfa (Sulfonamide * Diarrhea, GI Upset Review of Systems Physical Exam Vitals BP Pulse Temp Temp src Resp SpO2 Weight Height -- -- -- -- -- -- -- -- Physical Exam Vitals and nursing note reviewed. Constitutional: General: She is not in acute distress. Appearance: She is well-developed. She is not diaphoretic. HENT: Head: Normocephalic and atraumatic. Eyes: General: No scleral icterus. Right eye: No discharge. Left eye: No discharge. Conjunctiva/sclera: Conjunctivae normal. Neck: Trachea: No tracheal deviation. Cardiovascular: Rate and Rhythm: Normal rate and regular rhythm. Pulmonary: Effort: Pulmonary effort is normal. No respiratory distress. Abdominal: General: Bowel sounds are normal. There is no distension. Palpations: Abdomen is soft. Tenderness: There is no guarding or rebound. Comments: TT to even light palpation along LLQ radiating towards back. No rashes noted Musculoskeletal: General: Normal range of motion. Cervical back: Normal range of motion. Skin: General: Skin is warm and dry. Coloration: Skin is not pale. Findings: No erythema or rash. Neurological: Mental Status: She is alert and oriented to person, place, and time. Diagnostic Testing ED Labs Ordered and Reviewed - No data to display Procedures ED Course / Clinical Impression Clinical Impressions as of 01/27/25 1351 LLQ pain All questions answered. Pt understands and agrees w/ the plan. Pt d/c'd w/ instructions to f/u w/ PCP and instructed on symptomatic management; she reports having medications at home for this. MDM / Disposition / Plan Chart reviewed showing PMHx HTN, DM2, prior PE no longer on AC. She had ED visit ~2weeks ago for flank/abd pain with CT not showing significant acute process. She had workup otherwise showing questionable UTI though without nitrites or symptoms have lower suspicion for such. Will send urine culture for definitive evaluation though have lower suspicion. She had significant workup for these symptoms that she describes in a manner typical of muscle strain and suspect that is likely etiology. She has a benign abd here. Pt stable for d/c. SIGNATURE: Joe Escobedo MD - JOE ESCOBEDO 01/27/25 1354 Normal [facility] Urinalysis complete panel (U )on 01-27-2025 Bilirubin Ql (U) Negative Normal Negative [facility] Comment on above: Order Comment: Speci men Type: URINE SPECIMEN Ordering Facility: [facility] Address: [address] [place] [address] Performed By: #### 2 4356-8 #### [facility] CLIA [id number] [address] [place] [address] #### 630-4 #### [facility] CLIA [id number] [address] Clarity (Unsp spec) Slightly Cloudy Abnormal Clear [facility] Comment on above: Order Comment: Speci men Type: URINE SPECIMEN Ordering Facility: [facility] Address: [address] [place] [address] Performed By: #### 2 4356-8 #### [facility] CLIA [id number] [address] [place] [address] #### 630-4 #### [facility] CLIA [id number] [address] [place] [address] Color (U) Yellow Normal Yellow [facility] Comment on above: Order Comment: Speci men Type: URINE SPECIMEN Ordering Facility: [facility] Address: [address] [place] [address] Performed By: #### 2 4356-8 #### [facility] CLIA [id number] [address] [place] [address] #### 630-4 #### [facility] CLIA [id number] [address] [place] [address] Epithelial cells LM.HPF (Urine sed) [#/Area] Few Normal [facility] Comment on above: Order Comment: Speci men Type: URINE SPECIMEN Ordering Facility: [facility] Address: [address] [place] [address] Performed By: #### 2 4356-8 #### [facility] CLIA [id number] [address] [place] [address] #### 630-4 #### [facility] CLIA [id number] [address] [place] [address] Glucose Test strip (U) [Mass/Vol] 3+ Abnormal Negative [facility] Comment on above: Order Comment: Speci men Type: URINE SPECIMEN Ordering Facility: [facility] Address: [address] [place] [address] Performed By: #### 2 4356-8 #### [facility] CLIA [id number] [address] [place] [address] #### 630-4 #### [facility] CLIA [id number] [address] Hemoglobin Ql (U) Negative Normal Negative [facility] Comment on above: Order Comment: Speci men Type: URINE SPECIMEN Ordering Facility: [facility] Address: [address] [place] [address] Performed By: #### 2 4356-8 #### [facility] CLIA [id number] [address] [place] [address] #### 630-4 #### [facility] CLIA [id number] [address] [place] [address] Ketones Ql (U) Negative Normal Negative [facility] Comment on above: Order Comment: Speci men Type: URINE SPECIMEN Ordering Facility: [facility] Address: [address] [place] [address] Performed By: #### 2 4356-8 #### [facility] CLIA [id number] [address] [place] [address] #### 630-4 #### [facility] CLIA [id number] [address] Leukocyte esterase Test strip Ql (U) Trace Abnormal Negative [facility] Comment on above: Order Comment: Speci men Type: URINE SPECIMEN Ordering Facility: [facility] Address: [address] [place] [address] Performed By: #### 2 4356-8 #### [facility] CLIA [id number] [address] #### 630-4 #### [facility] CLIA [id number] [address] Nitrite Ql (U) Negative Normal Negative [facility] Comment on above: Order Comment: Speci men Type: URINE SPECIMEN Ordering Facility: [facility] Address: [address] [place] [address] Performed By: #### 2 4356-8 #### [facility] CLIA [id number] [address] [place] [address] #### 630-4 #### [facility] CLIA [id number] [address] [place] [address] pH (U) 5.5 [pH] Normal 5.0-8.0 [facility] Comment on above: Order Comment: Speci men Type: URINE SPECIMEN Ordering Facility: [facility] Address: [address] [place] [address] Performed By: #### 2 4356-8 #### [facility] CLIA [id number] [address] [place] [address] #### 630-4 #### [facility] CLIA [id number] [address] [place] [address] Protein (U) [Mass/Vol] Negative Normal Negative [facility] Comment on above: Order Comment: Speci men Type: URINE SPECIMEN Ordering Facility: [facility] Address: [address] [place] [address] Performed By: #### 2 4356-8 #### [facility] CLIA [id number] [address] [place] [address] #### 630-4 #### [facility] CLIA [id number] [address] [place] [address] RBC LM.HPF (Urine sed) [#/Area] 0-3 /HPF Normal 0-3 /HPF [facility] Comment on above: Order Comment: Speci men Type: URINE SPECIMEN Ordering Facility: [facility] Address: [address] [place] [address] Performed By: #### 2 4356-8 #### [facility] CLIA [id number] [address] [place] [address] #### 630-4 #### [facility] CLIA [id number] [address] Specific gravity (U) [Rel density] 1.010 Normal 1.005-1.030 [facility] Comment on above: Order Comment: Speci men Type: URINE SPECIMEN Ordering Facility: [facility] Address: [address] [place] [address] Performed By: #### 2 4356-8 #### [facility] CLIA [id number] [address] [place] [address] #### 630-4 #### [facility] CLIA [id number] [address] Urobilinogen Ql (U) 0.2 EU/dL Normal 0.2-1.0 EU/dL [facility] Comment on above: Order Comment: Speci men Type: URINE SPECIMEN Ordering Facility: [facility] Address: [address] [place] [address] Performed By: #### 2 4356-8 #### [facility] CLIA [id number] [address] [place] [address] #### 630-4 #### [facility] CLIA [id number] [address] [place] [address] WBC LM.HPF (Urine sed) [#/Area] 11-25 /HPF Abnormal 0-5 /HPF [facility] Comment on above: Order Comment: Speci men Type: URINE SPECIMEN Ordering Facility: [facility] Address: [address] [place] [address] Performed By: #### 2 4356-8 #### [facility] CLIA [id number] [address] [place] [address] [place] #### 630-4 #### [id number] [address] [facility] 01-14-2025 [facility] HNO ID: [id number] Author: MARCO MAO RT(R) Service: Radiology Author Type: Technologist Type: Allied Health Filed: 01/14/2025 20:11 Note Text: Radiology Service Progress Note PATIENT NAME: Thea Dorman DATE OF SERVICE: January 14, 2025 TIME: 8:11 PM PATIENT IDENTITY VERIFICATION COMPLETED USING TWO (2) IDENTIFIERS: Name and Date of confirmed by patient verbally and Name and Date of confirmed by identification band. FALL SCREENING: Has the patient had 2 falls in the last year or 1 fall with injury or currently using an Ambulatory Assistive Device (Walker, Cane, Wheelchair, Crutches, etc.)? Emergency Room Patient: Screened in ED PATIENT GENDER DATA: Assigned female at . status: : No status: NO. PATIENT RELEVANT IMPLANT DATA REVIEWED: Not Applicable PATIENT PRESENTS WITH AN IMPLANTABLE OR ATTACHED BLEACHER OPERATOR: No RADIOLOGY DEPARTMENT: General X-ray: Exam(s) Completed: Chest X-Ray PERIPHERAL IV DATA: Not applicable SIGNED BY: RT Ag(R) January 14, 2025 8:11 PM [facility] HNO ID: [id number] Author: CORY DAHL RT(R) Service: Radiology Author Type: Technologist Type: Allied Health Filed: 01/14/2025 18:09 Note Text: Radiology Service Progress Note PATIENT NAME: Thea Dorman DATE OF SERVICE: January 14, 2025 TIME: 6:09 PM PATIENT IDENTITY VERIFICATION COMPLETED USING TWO (2) IDENTIFIERS: Name and Date of confirmed by patient verbally and Name and Date of confirmed by identification band. FALL SCREENING: Has the patient had 2 falls in the last year or 1 fall with injury or currently using an Ambulatory Assistive Device (Walker, Cane, Wheelchair, Crutches, etc.)? Emergency Room Patient: Screened in ED PATIENT GENDER DATA: Assigned female at . status: : No status: NO. PATIENT RELEVANT IMPLANT DATA REVIEWED: Yes PATIENT PRESENTS WITH AN IMPLANTABLE OR ATTACHED BLEACHER OPERATOR: No RADIOLOGY DEPARTMENT: CT; Exam(s) Completed: Abdomen/Pelvis PERIPHERAL IV DATA: Not applicable SIGNED BY: RT Brad(R) January 14, 2025 6:09 PM Normal [facility] Bacteria Ur Culton Bacteria identified Cx Nom (U) ORGANISM ID: 1 10,000 -<50,000 CFU/ml Normal urogenital wilma Normal [facility] Comment on above: Performed By: #### 6 30-4 ####[facility] [id number] [place] [address] [place] CBC W Auto Differential pane l (Bld)on 01-14-2025 Basophils (Bld) [#/Vol] 0.06 10*3/uL Normal <0.11 [facility] Comment on above: Order Comment: Speci men Type: BLOOD SPECIMENOrdering Facility: [facility] Address: [address] [place] [address] Performed By: #### 5 7021-8 ####[facility] [id number] [address] [place] Basophils/100 WBC (Bld) 0.5 % Normal [facility] Comment on above: Order Comment: Speci men Type: BLOOD SPECIMENOrdering Facility: [facility] [facility] Address: [address] [place] [address] Performed By: #### 5 7021-8 ####MIL[facility] LABORATORYCLIA [id number] [place] [address] [place] Differential cell count method Nom (Bld) Auto Normal [facility] Comment on above: Order Comment: Speci men Type: BLOOD SPECIMENOrdering Facility: [facility] Address: [address] [place] [address] Performed By: #### 5 7021-8 ####MILNER LABORATORYCLIA [id number] [place] [address] [place] Eosinophils (Bld) [#/Vol] 0.15 10*3/uL Normal <0.46 [facility] Comment on above: Order Comment: Speci men Type: BLOOD SPECIMENOrdering Facility: [facility] Address: [address] [place] [address] Performed By: #### 5 7021-8 ####MILNER LABORATORYCLIA [id number] [place] [address] [place] Eosinophils/100 WBC (Bld) 1.2 % Normal [facility] Comment on above: Order Comment: Speci men Type: BLOOD SPECIMENOrdering Facility: [facility] Address: [address] [place] [address] Performed By: #### 5 7021-8 ####MILNER LABORATORYCLIA [id number] [place] [address] [place] Erythrocyte distribution width (RBC) [Ratio] 14.3 % Normal 11.5-15.0 [facility] Comment on above: Order Comment: Speci men Type: BLOOD SPECIMENOrdering Facility: [facility] Address: [address] [place] [address] Performed By: #### 5 7021-8 ####MILNER LABORATORYCLIA [id number] [place] [address] [place] Hematocrit (Bld) [Volume fraction] 38.1 % Normal 36.0-46.0 [facility] Comment on above: Order Comment: Speci men Type: BLOOD SPECIMENOrdering Facility: [facility] Address: [address] [place] [address] Performed By: #### 5 7021-8 ####MILNER LABORATORYCLIA [id number] [place] [address] [place] Hemoglobin (Bld) [Mass/Vol] 11.9 g/dL Normal 11.5-15.5 [facility] Comment on above: Order Comment: Speci men Type: BLOOD SPECIMENOrdering Facility: [facility] Address: [address] [place] [address] Performed By: #### 5 7021-8 ####MILNER LABORATORYCLIA [id number] [place] [address] [place] Immature granulocytes (Bld) [#/Vol] 0.06 10*3/uL Normal <0.10 [facility] Comment on above: Order Comment: Speci men Type: BLOOD SPECIMENOrdering Facility: [facility] Address: [address] [place] [address] Performed By: #### 5 7021-8 ####MILNER LABORATORYCLIA [id number] [address] Immature granulocytes/100 WBC (Bld) 0.5 % Normal [facility] Comment on above: Order Comment: Speci men Type: BLOOD SPECIMENOrdering Facility: [facility] Address: [address] [place] [address] Performed By: #### 5 7021-8 ####MILNER LABORATORYCLIA [id number] [address] Lymphocytes (Bld) [#/Vol] 2.42 10*3/uL Normal 1.00-4.00 [facility] Comment on above: Order Comment: Speci men Type: BLOOD SPECIMENOrdering Facility: [facility] Address: [address] [place] [address] Performed By: #### 5 7021-8 ####MILNER LABORATORYCLIA [id number] [address] Lymphocytes/100 WBC (Bld) 19.5 % Normal [facility] Comment on above: Order Comment: Speci men Type: BLOOD SPECIMENOrdering Facility: [facility] Address: [address] [place] [address] Performed By: #### 5 7021-8 ####MILNER LABORATORYCLIA [id number] [address] STATES [facility] MCH (RBC) [Entitic mass] 26.0 pg Normal 26.0-34.0 [facility] Comment on above: Order Comment: Speci men Type: BLOOD SPECIMENOrdering Facility: [facility] Address: [address] [place] [address] Performed By: #### 5 7021-8 ####MILNER LABORATORYCLIA [id number] [address] MCHC (RBC) [Mass/Vol] 31.2 g/dL Normal 30.5-36.0 [facility] Comment on above: Order Comment: Speci men Type: BLOOD SPECIMENOrdering Facility: [facility] Address: [address] [place] [address] Performed By: #### 5 7021-8 ####MILNER LABORATORYCLIA [id number] [place] [address] [place] MCV (RBC) [Entitic vol] 83.4 fL Normal 80.0-100.0 [facility] Comment on above: Order Comment: Speci men Type: BLOOD SPECIMENOrdering Facility: [facility] Address: [address] [place] [address] Performed By: #### 5 7021-8 ####MILNER LABORATORYCLIA [id number] [place] [address] [place] Monocytes (Bld) [#/Vol] 0.81 10*3/uL Normal <0.87 [facility] Comment on above: Order Comment: Speci men Type: BLOOD SPECIMENOrdering Facility: [facility] Address: [address] [place] [address] Performed By: #### 5 7021-8 ####MILNER LABORATORYCLIA [id number] [place] [address] [place] Monocytes/100 WBC (Bld) 6.5 % Normal [facility] Comment on above: Order Comment: Speci men Type: BLOOD SPECIMENOrdering Facility: [facility] Address: [address] [place] [address] Performed By: #### 5 7021-8 ####MILNER LABORATORYCLIA [id number] [place] [address] [place] Neutrophils (Bld) [#/Vol] 8.89 10*3/uL High 1.45-7.50 [facility] Comment on above: Order Comment: Speci men Type: BLOOD SPECIMENOrdering Facility: [facility] Address: [address] [place] [address] Performed By: #### 5 7021-8 ####MILNER LABORATORYCLIA [id number] [place] [address] [place] Neutrophils/100 WBC (Bld) 71.8 % Normal [facility] Comment on above: Order Comment: Speci men Type: BLOOD SPECIMENOrdering Facility: [facility] Address: [address] [place] [address] Performed By: #### 5 7021-8 ####MILNER LABORATORYCLIA [id number] [place] [address] [place] Nucleated RBC (Bld) [#/Vol] 10*3/uL Normal <0.01 [facility] Comment on above: Order Comment: Speci men Type: BLOOD SPECIMENOrdering Facility: [facility] Address: [address] [place] [address] Performed By: #### 5 7021-8 ####MILNER LABORATORYCLIA [id number] [place] [address] [place] Nucleated RBC/100 WBC (Bld) [Ratio] 0.0 /100 WBC Normal [facility] Comment on above: Order Comment: Speci men Type: BLOOD SPECIMENOrdering Facility: [facility] Address: [address] [place] [address] Performed By: #### 5 7021-8 ####MILNER LABORATORYCLIA [id number] [place] [address] [place] Platelet mean volume (Bld) [Entitic vol] 9.2 fL Normal 9.0-12.7 [facility] Comment on above: Order Comment: Speci men Type: BLOOD SPECIMENOrdering Facility: [facility] Address: [address] [place] [address] Performed By: #### 5 7021-8 ####MILNER LABORATORYCLIA [id number] [place] [address] [place] Platelets (Bld) [#/Vol] 446 10*3/uL High 150-400 [facility] Comment on above: Order Comment: Speci men Type: BLOOD SPECIMENOrdering Facility: [facility] Address: [address] [place] [address] [place] [address] Performed By: #### 5 7021-8 ####MILNER LABORATORYCLIA [id number] [place] [address] [place] RBC (Bld) [#/Vol] 4.57 10*6/uL Normal 3.90-5.20 [facility] Comment on above: Order Comment: Speci men Type: BLOOD SPECIMENOrdering Facility: [facility] Address: [address] [place] [address] Performed By: #### 5 7021-8 ####MAYBEURY LABORATORYCLIA [id number] [place] [address] [place] WBC (Bld) [#/Vol] 12.39 10*3/uL High 3.70-11.00 [facility] Comment on above: Order Comment: Speci men Type: BLOOD SPECIMENOrdering Facility: [facility] Address: [place] [address] Performed By: #### 5 7021-8 ####MAYBEURY LABORATORYCLIA [id number] [address] OF [facility] CT FLANK WO IVCONon 01-15-[address] FLANK WO IVCON * * *Final Report* * * DATE OF EXAM: Jan 14 2025 6:07PM [facility] 0529 - CT FLANK WO IVCON / PROCEDURE REASON: Flank pain, kidney stone suspected * * * * Physician Interpretation * * * * EXAMINATION: CT ABDOMEN AND PELVIS WITHOUT IV CONTRAST (Renal stone protocol) CLINICAL HISTORY: Left flank pain TECHNIQUE: Non-contrast imaging of the abdomen and pelvis was performed through the urinary tract. Study performed without intravenous or oral contrast to evaluate for urinary tract calculus. MQ: CTAbdPelvF_1 Contrast: IV contrast: None Oral contrast: None CT Radiation dose: Integrated dose-length product (DLP) for this visit = 349 mGy*cm. CT Dose Reduction Employed: Automated exposure control(AEC) and iterative recon COMPARISON: 07/28/2023, RESULT: Limitations: Unenhanced imaging is limited for the evaluation of some renal and other intra-abdominal and pelvic pathology. Urinary Tract: Right kidney and ureter: No calculus. No hydronephrosis. No finding to suggest cyst or mass in the unenhanced kidney. Left kidney and ureter: No calculus. No hydronephrosis. No finding to suggest cyst or mass in the unenhanced kidney. Bladder: No calculus. Abdomen and Pelvis: Liver: Unremarkable. Biliary: S/p cholecystectomy. Spleen: No splenomegaly. Pancreas: Unremarkable. Adrenals: Normal. GI Tract: No bowel dilation. No bowel wall thickening. Hiatal hernia. Lymph Nodes: No lymphadenopathy. Mesentery/peritoneum: No ascites. Vasculature: No abdominal aortic or iliac artery aneurysm. Pelvis: No mass or ascites. Bones and Soft Tissues: No acute abnormality. Lower thorax: Unremarkable. Localizer images: No significant findings. IMPRESSION: No evidence for urinary tract calculus or obstruction. No acute abnormality involving the abdomen or pelvis. Hiatal hernia. 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 Transcribe Date/Time: Jan 14 2025 6:34P Dictated by : TAWANNA MANCINI MD This examination was interpreted and the report reviewed and electronically signed by: TAWANNA MANCINI MD on Jan 14 2025 6:40PM EST [id number] Normal [facility] Comprehensive metabolic 2000 panelon 01-14-2025 Albumin [Mass/Vol] 4.3 g/dL Normal 3.9-4.9 [facility] Comment on above: Order Comment: Speci men Type: BLOOD SPECIMENOrdering Facility: [facility] Address: [address] [place] [address] Performed By: #### H STNT, 75596-9, 3040-3 ####MIL[facility] LABORATORYCLIA [id number] [place] [address] [place] ALP [Catalytic activity/Vol] 114 U/L Normal 34-123 [facility] Comment on above: Order Comment: Speci men Type: BLOOD SPECIMENOrdering Facility: [facility] Address: [address] [place] [address] Performed By: #### H STNT, 35880-7, 3040-3 ####MILNER LABORATORYCLIA [id number] [place] [address] [place] ALT [Catalytic activity/Vol] 12 U/L Normal 7-38 [facility] Comment on above: Order Comment: Speci men Type: BLOOD SPECIMENOrdering Facility: [facility] Address: [address] [place] [address] Performed By: #### H STNT, 81499-0, 3040-3 ####MILNER LABORATORYCLIA [id number] [place] [id number] [place] Anion gap [Moles/Vol] 14 mmol/L Normal 8-15 [facility] Comment on above: Order Comment: Speci men Type: BLOOD SPECIMENOrdering Facility: [facility] Address: [address] [place] [address] Performed By: #### H STNT, 60223-6, 3040-3 ####MILNER LABORATORYCLIA [id number] [place] [address] [place] AST [Catalytic activity/Vol] 19 U/L Normal 13-35 [facility] Comment on above: Order Comment: Speci men Type: BLOOD SPECIMENOrdering Facility: [facility] Address: [address] [place] [address] Performed By: #### H STNT, 83028-5, 3040-3 ####MILNER LABORATORYCLIA [id number] [place] [address] [place] Bilirubin [Mass/Vol] 0.3 mg/dL Normal 0.2-1.3 [facility] Comment on above: Order Comment: Speci men Type: BLOOD SPECIMENOrdering Facility: [facility] Address: [address] [place] [address] Performed By: #### H STNT, 90890-6, 0-3 ####MILNER LABORATORYCLIA [id number] [place] [address] [place] Calcium [Mass/Vol] 9.7 mg/dL Normal 8.5-10.2 [facility] Comment on above: Order Comment: Speci men Type: BLOOD SPECIMENOrdering Facility: [facility] Address: [address] [place] [address] Performed By: #### H STNT, 73430-6, 3040-3 ####MILNER LABORATORYCLIA [id number] [place] [address] [place] Chloride [Moles/Vol] 100 mmol/L Normal 98-107 [facility] Comment on above: Order Comment: Speci men Type: BLOOD SPECIMENOrdering Facility: [facility] Address: [address] [place] [address] Performed By: #### H STNT, 61366-4, 3 ####MILNER LABORATORYCLIA [id number] [place] [address] [place] CO2 [Moles/Vol] 22 mmol/L Normal 22-30 [facility] Comment on above: Order Comment: Specglenn wray Type: BLOOD SPECIMENOrdering Facility: [facility] Address: [address] [place] [address] Performed By: #### H STNT, 18901-7, 3 ####MILNER LABORATORYCLIA [id number] [address] STATES OF [facility] Creatinine [Mass/Vol] 0.74 mg/dL Normal 0.58-0.96 [facility] Comment on above: Order Comment: Sahrad wray Type: BLOOD SPECIMENOrdering Facility: [facility] Address: [address] [place] [address] Performed By: #### H STNT, , 3 ####MILNER LABORATORYCLIA [id number] [address] Creatinine and Glomerular filtration rate.predicted panel (S/P/Bld) 93 mL/min/1.73m??? Normal >=60 [facility] Comment on above: Order Comment: Sharad wray Type: BLOOD SPECIMENOrdering Facility: [facility] Address: [address] [place] [address] Result Comment: Tania mated Glomerular Filtration Rate (eGFR) is calculated using the 2020 CKD-EPI creatinine equation. This equation utilizes serum creatinine, sex, and age as parameters. The creatinine assay has traceable calibration to isotope dilution-mass spectrometry. Refer to KDIGO guidelines for clinical interpretation. In patients with unstable renal function, e.g. those with acute kidney injury, the eGFR may not accurately reflect actual GFR. Performed By: #### H STNT, 17069-3, 3 ####MILNER LABORATORYCLIA [id number] [address] [place] Glucose [Mass/Vol] 143 mg/dL High 74-99 [facility] Comment on above: Order Comment: Sharad wray Type: BLOOD SPECIMENOrdering Facility: [facility] Address: [address] [place] [address] Result Comment: The [place] Diabetes [employer] (ADA) provides guidance for cutoff values for fasting glucose and random glucose. The ADA defines fasting as no caloric intake for at least 8 hours. Fasting plasma glucose results between 100 to 125 mg/dL indicate increased risk for diabetes (prediabetes). Fasting plasma glucose results greater than or equal to 126 mg/dL meet the criteria for diagnosis of diabetes. In the absence of unequivocal hyperglycemia, results should be confirmed by repeat testing. In a patient with classic symptoms of hyperglycemia or hyperglycemic crisis, random plasma glucose results greater than or equal to 200 mg/dL meet the criteria for diagnosis of diabetes. Reference: Standards of Medical Care in Diabetes 2016, [place] [employer]. Diabetes Care. 2016.39(Suppl 1). Performed By: #### H STNT, 47327-4, 0-3 ####MILNER LABORATORYCLIA [id number] [place] [address] [place] Potassium [Moles/Vol] 3.7 mmol/L Normal 3.7-5.1 [facility] Comment on above: Order Comment: Speci men Type: BLOOD SPECIMENOrdering Facility: [facility] Address: [address] [place] [id number] Performed By: #### H STNT, 97214-5, 3039-3 ####MILNER LABORATORYCLIA [id number] [place] [address] [place] Protein [Mass/Vol] 7.2 g/dL Normal 6.3-8.0 [facility] Comment on above: Order Comment: Speci men Type: BLOOD SPECIMENOrdering Facility: [facility] Address: [address] [place] [address] Performed By: #### H STNT, 58918-3, 0-3 ####MILNER LABORATORYCLIA [id number] [place] [address] [place] Sodium [Moles/Vol] 136 mmol/L Normal 136-144 [facility] Comment on above: Order Comment: Speci men Type: BLOOD SPECIMENOrdering Facility: [facility] Address: [address] [place] [id number] Performed By: #### H STNT, 99416-3, 3040-3 ####MAYBEURY LABORATORYCLIA [id number] [place] [address] [place] [facility] Urea nitrogen [Mass/Vol] 11 mg/dL Normal 7-21 [facility] Comment on above: Order Comment: Speci men Type: BLOOD SPECIMENOrdering Facility: [facility] Address: [address] [place] [address] Performed By: #### H STNT, 39480-7, 3040-3 ####MAYBEURY LABORATORYCLIA [id number] [place] [address] [place] D dimer FEU PPP-mCncon 01-14 Fibrin D-dimer FEU (PPP) [Mass/Vol] 220 ng/mL FEU Normal <500 [facility] Comment on above: Order Comment: Speci men Type: BLOOD SPECIMENOrdering Facility: [facility] Address: [address] [place] [address] Performed By: #### 4 8065-7 ####MAYBEURY LABORATORYCLIA [id number] [place] [id number] [place] ED NOTEon 01-14-2025 ED NOTE HNO ID: [id number] Author: ELY DYSON RN Service: Behavioral Health Author Type: Registered Nurse Type: ED Notes Filed: 01/14/2025 21:48 Note Text: .Patient discharged, given verbal and written discharge instructions. Patient verbalized understanding. Nurse discussed medication(Cipro, lidocaine patch, robaxin) that were prescribed and follow up appointments and signs/symptoms of worsening conditions, and reasons why to come back to the emergency department. Normal [facility] ED PROV NOTEon 01-14-2025 ED PROV NOTE HNO ID: [id number] Author: MESHA YEBOAH PA-C Service: Emergency Medicine Author Type: Physician Bean Viner Type: ED Provider Notes Filed: 01/15/2025 01:09 Note Text: ED Provider Note Patient Name: Thea Dorman : 1965 SERVICE DATE: 01/14/25 History Patient presents with: Flank Pain: L flank pain starting around 1600 this afternoon with associated nausea 60-year-old female presents to the emergency department for evaluation of left flank pain. She has past medical history including hypertension, hyperlipidemia, diabetes, GERD, Graves' disease, obesity, depression, and prior PE not currently on anticoagulation. She states that 1 week ago she had some left flank discomfort that was transient and self-limited. Today it started up again about an hour prior to arrival and she had some associated nausea. Does feel like it radiates to the left lateral abdomen. She is concerned about a possible kidney stone states she has had 1 before that passed without any intervention. This was several years ago. History of cholecystectomy and hysterectomy with right oophorectomy. Retained left ovary. She describes some possible increased urinary frequency. No urgency hematuria or dysuria. Denies any change in bowel habits. No chest pain, shortness of breath, pleurisy, fever chills or cough. Does have prior history of pyelonephritis. Has tried nothing for symptoms. 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: No PAST MEDICAL HISTORY Diagnosis Date Acute pulmonary embolism (HCC) 12/02/2016 Diabetes ([facility]) Drug overdose 11/29/2016 Hypertension Psychiatric disorder Pyelonephritis 09/06/2016 Suicide ([facility]) 03/31/2016 PAST SURGICAL HISTORY Procedure Laterality Date CHOLECYSTECTOMY HX HYSTERECTOMY HX TONSILLECTOMY HX FAMILY HISTORY Problem Relation Age of Onset Hypertension Mother Social History Tobacco Use Smoking status: Heavy Smoker Types: Cigarettes Smokeless tobacco: Never Vaping Use Vaping status: Never Used Substance and Sexual Activity Alcohol use: No Drug use: No Sexual activity: Yes ALLERGIES Allergen Reactions Nsaids (Non-Steroid* Hives, Itching Pt gets hives and itching from taking any NSAIDS Sulfa (Sulfonamide * Diarrhea, GI Upset Review of Systems Constitutional: Negative for chills and fever. HENT: Negative. Respiratory: Negative for shortness of breath. Cardiovascular: Negative for chest pain. Gastrointestinal: Positive for nausea. Negative for abdominal pain and vomiting. Genitourinary: Positive for flank pain and frequency. Negative for dysuria, hematuria and urgency. Skin: Negative. Allergic/Immunologic: Negative for immunocompromised state. Neurological: Negative for dizziness, light-headedness and headaches. Hematological: Does not bruise/bleed easily. Psychiatric/Behavioral: Negative for confusion. Physical Exam Vitals BP Pulse Temp Temp src Resp SpO2 Weight Height 01/14/25 1704 01/14/25 1703 01/14/25 17001/14/25 17001/14/25 17001/14/25 17001/14/25170201/14/25 170 139/70 84 37.3 ?C (99.1 ?F) Oral 19 97 % 86.2 kg (190 lb) 1.651 m (5' 5) Physical Exam Vitals and nursing note reviewed. Constitutional: General: She is awake. She is not in acute distress. Appearance: Normal appearance. She is well-developed and well-groomed. She is not ill-appearing, toxic-appearing or diaphoretic. HENT: Head: Normocephalic and atraumatic. Nose: Nose normal. Mouth/Throat: Mouth: Mucous membranes are moist. Eyes: Extraocular Movements: Extraocular movements intact. Pupils: Pupils are equal, round, and reactive to light. Cardiovascular: Rate and Rhythm: Normal rate and regular rhythm. Pulses: Normal pulses. Radial pulses are 2+ on the right side and 2+ on the left side. Dorsalis pedis pulses are 2+ on the right side and 2+ on the left side. Heart sounds: Normal heart sounds, S1 normal and S2 normal. Pulmonary: Effort: Pulmonary effort is normal. Breath sounds: Normal breath sounds and air entry. Abdominal: General: There is no distension. Palpations: Abdomen is soft. There is no mass. Tenderness: There is abdominal tenderness in the left upper quadrant. There is left CVA tenderness. There is no right CVA tenderness, guarding or rebound. Hernia: No hernia is present. Musculoskeletal: General: Normal range of motion. Cervical back: Normal range of motion. Right lower leg: No edema. Left lower leg: No edema. Skin: General: Skin is warm. Neurological: General: No focal deficit present. Mental Status: She is alert and oriented to person, place, and time. GCS: GCS eye subscore is 4. GCS verbal subscore is 5. GCS motor subscore is 6. Cranial Nerves: Cranial nerves 2-12 are intact. Sensory: Sensation is intact. Motor: Motor function is intact. Coordination: Coordination is intact. Gait: Gait is intact. Psychiatric: Mood and Affect: (more content not included)... Normal [facility] EKGon 01-14-2025 Electrocardiogram Ventricular Rate : 7 8 BPM Atrial Rate : 78 BPM P-R Interval : 166 ms QRS Duration : 72 ms Q-T Interval : 360 ms QTC Calculation(Bazett) : 410 ms Calculated P [place] : 50 degrees Calculated R [place] : 25 degrees Calculated T [place] : 58 degrees NORMAL SINUS RHYTHM LOW VOLTAGE QRS BORDERLINE ECG NO STEMI Confirmed by RANJANA BENTLEY DO ([id number]) on 01/14/2025 5:49:27 PM NAME : THEA DORMAN PID : [id number] : 1965 Gender : Female Race : ORD : Procedure Date : Jan 14 2025 17:47:26 Edit Date : Jan 14 2025 17:49:29 Diagnosis: NORMAL SINUS RHYTHM LOW VOLTAGE QRS BORDERLINE ECG NO STEMI Confirmed by RANJANA BENTLEY DO ([id number]) on 01/14/2025 5:49:27 PM Test Reason : Location : 1 : ER ED Overread By : RANJANA BENTLEY DO Edited By : RANJANA BENTLEY DO Referred By : , Acquired by : , [facility] Fibrin D-dimer FEU (PPP) [Ma ss/Vol]on 01-14-2025 D DIMER AGE-RELATED CUTOFF 600 ng/mL U [facility] Comment on above: Order Comment: Speci men Type: BLOOD SPECIMENOrdering Facility: [facility] Address: [address] [place] [address] Performed By: #### 4 8065-7 ####MAYBEURY LABORATORYCLIA [id number] [address] [place] HIGH SENSITIVITY TROPONIN To n 01-14-2025 Troponin T.cardiac High sensitivity method [Mass/Vol] 13 ng/L High <12 [facility] Comment on above: Order Comment: [facility] Type: BLOOD SPECIMENOrdering Facility: [facility] Address: [address] [place] [address] Performed By: #### H STNT, 73885-6, 3040-3 ####MAYBEURY LABORATORYCLIA [id number] [place] [address] [place] Lipase SerPl-cCncon 01-15-20 25 Lipase [Catalytic activity/Vol] 31 U/L Normal 16-61 [facility] Comment on above: Order Comment: Speci men Type: BLOOD SPECIMENOrdering Facility: [facility] Address: [address] [place] [address] Performed By: #### H STNT, 47406-5, 3040-3 ####MILNER LABORATORYCLIA [id number] [address] URINALYSIS, REFLEX MICROSCOP ICon 01-14-2025 Bacteria LM.HPF (Urine sed) [#/Area] Few Abnormal None Seen [facility] Comment on above: Order Comment: Speci men Type: URINE SPECIMENOrdering Facility: [facility] Address: [address] [place] [address] Performed By: #### L [id number] ####MILNER LABORATORYCLIA [id number] [address] [place] Bilirubin Ql (U) Negative Normal Negative [facility] Comment on above: Order Comment: Speci men Type: URINE SPECIMENOrdering Facility: [facility] Address: [address] [place] [address] Performed By: #### L [id number] ####MILNER LABORATORYCLIA [id number] [address] Clarity (Unsp spec) Slightly Cloudy Abnormal Clear [facility] Comment on above: Order Comment: Speci men Type: URINE SPECIMENOrdering Facility: [facility] Address: [address] [place] [address] Performed By: #### L [id number] ####MILNER LABORATORYCLIA [id number] [address] Color (U) Yellow Normal Yellow [facility] Comment on above: Order Comment: Speci men Type: URINE SPECIMENOrdering Facility: [facility] Address: [address] [place] [address] Performed By: #### L [id number] ####MILNER LABORATORYCLIA [id number] [address] Glucose Test strip (U) [Mass/Vol] 3+ Abnormal Negative [facility] Comment on above: Order Comment: Speci men Type: URINE SPECIMENOrdering Facility: [facility] Address: [address] [place] [address] Performed By: #### L [id number] ####MILNER LABORATORYCLIA [id number] [place] [address] [place] Hemoglobin Ql (U) Negative Normal Negative [facility] Comment on above: Order Comment: Speci men Type: URINE SPECIMENOrdering Facility: [facility] Address: [address] [place] [address] Performed By: #### L [id number] ####MILNER LABORATORYCLIA [id number] [place] [address] [place] Ketones Ql (U) Trace Abnormal Negative [facility] Comment on above: Order Comment: Speci men Type: URINE SPECIMENOrdering Facility: [facility] Address: [address] [place] [address] Performed By: #### L [id number] ####MILNER LABORATORYCLIA [id number] [address] Leukocyte esterase Test strip Ql (U) 1+ Abnormal Negative [facility] Comment on above: Order Comment: Speci men Type: URINE SPECIMENOrdering Facility: [facility] Address: [address] [place] [address] Performed By: #### L [id number] ####MILNER LABORATORYCLIA [id number] [address] STATES OF [facility] Nitrite Ql (U) Negative Normal Negative [facility] Comment on above: Order Comment: Speci men Type: URINE SPECIMENOrdering Facility: [facility] Address: [address] [place] [address] Performed By: #### L [id number] ####MILNER LABORATORYCLIA [id number] [address] OF [place] pH (U) 6.0 [pH] Normal 5.0-8.0 [facility] Comment on above: Order Comment: Speci men Type: URINE SPECIMENOrdering Facility: [facility] Address: [address] [place] [address] Performed By: #### L [id number] ####MILNER LABORATORYCLIA [id number] [address] [place] Protein (U) [Mass/Vol] Trace Abnormal Negative [facility] Comment on above: Order Comment: Speci men Type: URINE SPECIMENOrdering Facility: [facility] Address: [address] [place] [address] Performed By: #### L [id number] ####MILNER LABORATORYCLIA [id number] [address] RBC LM.HPF (Urine sed) [#/Area] 0-3 /HPF Normal 0-3 /HPF [facility] Comment on above: Order Comment: Speci men Type: URINE SPECIMENOrdering Facility: [facility] Address: [address] [place] [address] Performed By: #### L [id number] ####MILNER LABORATORYCLIA [id number] [address] Specific gravity (U) [Rel density] 1.025 Normal 1.005-1.030 [facility] Comment on above: Order Comment: Speci men Type: URINE SPECIMENOrdering Facility: [facility] Address: [address] [place] [address] Performed By: #### L [id number] ####MILNER LABORATORYCLIA [id number] [address] Urobilinogen Ql (U) 0.2 EU/dL Normal 0.2-1.0 EU/dL [facility] Comment on above: Order Comment: Speci men Type: URINE SPECIMENOrdering Facility: [facility] Address: [address] [place] [address] Performed By: #### L [id number] ####MILNER LABORATORYCLIA [id number] [address] WBC LM.HPF (Urine sed) [#/Area] 6-10 /HPF Abnormal 0-5 /HPF [facility] Comment on above: Order Comment: Speci men Type: URINE SPECIMENOrdering Facility: [facility] Address: [address] [place] [address] Performed By: #### L [id number] ####MILNER LABORATORYCLIA [id number] [address] [place] XR CHEST 2V FRONTAL/LATon XR CHEST 2V FRONTAL/LAT * * *Final Report* * * DATE OF EXAM: Jan 14 2025 8:07PM MDX 5291 - XR CHEST 2V FRONTAL/LAT / PROCEDURE REASON: Chest Pain * * * * Physician Interpretation * * * * EXAMINATION: CHEST RADIOGRAPH (2 VIEW FRONTAL and LATERAL) CLINICAL HISTORY: Chest Pain MQ: [id number] EXAM DATE/TIME: 01/14/2025 8:07 PM COMPARISON: X-ray 07/17/[address] abdomen performed earlier same day RESULT: Lines, tubes, and devices: None. Lungs and pleura: No definite infiltrate or failure, vague density at the bilateral bases with clear lung bases on CT of earlier same day, finding is thought related to sequelae of remote trauma. There is flattening of the hemidiaphragms in keeping with air-trapping. Cardiomediastinal silhouette: Normal cardiomediastinal silhouette. Bones and soft tissues: Unremarkable. IMPRESSION: Flattening of the hemidiaphragms suggesting air trapping. No definite infiltrate or failure. Other as above 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 Transcribe Date/Time: Jan 14 2025 8:28P Dictated by : RA SETH MD This examination was interpreted and the report reviewed and electronically signed by: RA SETH MD on Jan 14 2025 8:30PM EST [id number] [facility] 36on 01-11-2025 36 Spoke with patient a nd discussed her right heel pain. Patient stated she has plantar warts. Patient is going to find a multiple cut off saw operator in the [place] area. [facility] 36on 01-09-2025 36 LM to schedule patie nt at [facility] with Dr. Faustin. [facility] 3601-08-2025 36 LM to schedule patie nt for [facility]. [facility] ED Nursing Noteon 01-05-2025 ED Nursing Note Patient is here for right heel pain. Pain started last night. She denies injury. She cannot put pressure on her heel and is not WB on that foot. She tried tylenol without relief and has trouble taking tylenol due to her IBS. She has type 2 diabetes. She has a history of plantar warts in that area 2 years ago. Call light within reach. [facility] ED Provider Noteon ED Provider Note EMERGENCY DEPARTMENT ENCOUNTER Pt Name: Thea Dorman Birthdate 1965 Date of evaluation: 01/05/2025 ED Provider: Bronwyn Robert DO CHIEF COMPLAINT Chief Complaint Patient presents with Other RIGHT HEEL PAIN HISTORY OF PRESENT ILLNESS (Location/Symptom, Timing/Onset, Context/Setting, Quality, Duration, Modifying Factors, Severity) Note limiting factors. HPI Thea Dorman is a 59 y.o. female who presents to the emergency department with a few days of right heel pain. Replicates the symptoms she had about 3 years ago when she had a collection of plantars warts that she had to have removed by a multiple cut off saw operator in [place]. Has moved since then, and wants to see somebody closer to [place]. No fever. Difficult to put weight on it due to the discomfort. Allergic to NSAIDs. Tylenol causes her IBS to act up. She took Tylenol this morning and says she has had several bouts of diarrhea since then. No trauma to the area. No pain over the Achilles tendon or distal to the heel. No history of plantar fasciitis. Pain kept her awake most of the night, not initiated by the first step out of bed in the morning. She is a type II diabetic, well-controlled with oral medications. Nursing Notes were reviewed. REVIEW OF SYSTEMS All systems reviewed and negative except as noted above. PAST MEDICAL HISTORY Medical History[1] SURGICAL HISTORY Surgical History[2] CURRENT MEDICATIONS Previous Medications AMLODIPINE (NORVASC) 10 MG TABLET Take 1 tablet (10 mg) by mouth daily. ATORVASTATIN (LIPITOR) 40 MG TABLET Take 1 tablet (40 mg) by mouth daily. CHOLECALCIFEROL (VITAMIN D-3) 25 MCG (1000 UT) TABLET Take 1,000 Units by mouth daily. CLONAZEPAM (KLONOPIN) 0.5 MG TABLET Take 0.5 mg by mouth in the morning and 0.5 mg in the evening. COLESEVELAM (WELCHOL) 625 MG TABLET Take 1,250 mg by mouth 2 times daily. DAPAGLIFLOZIN (FARXIGA) 10 MG TABLET Take 1 tablet (10 mg) by mouth daily. GLIMEPIRIDE (AMARYL) 4 MG TABLET TAKE ONE BY MOUTH TWICE DAILY WITH MEALS GLUCOMETER by Other route daily. Once daily thing in the a.m. GLUCOSE BLOOD TEST STRIP Use as instructed IRBESARTAN (AVAPRO) 150 MG TABLET Take 1 tablet (150 mg) by mouth daily. LINAGLIPTIN (TRADJENTA) 5 MG TABLET Take 1 tablet (5 mg) by mouth daily. METFORMIN (GLUCOPHAGE) 1000 MG TABLET Take 1 tablet (1,000 mg) by mouth 2 times daily (with meals). MIRTAZAPINE (REMERON) 30 MG TABLET Take 45 mg by mouth. PAROXETINE (PAXIL) 20 MG TABLET Take 20 mg by mouth 2 times daily. ALLERGIES Nsaids, Sulfa antibiotics, and Sulfamethoxazole-trimeth oprim FAMILY HISTORY Family History[3] SOCIAL HISTORY Social History[4] PHYSICAL EXAM ED Triage Vitals [01/05/25 1350] Temp Heart Rate Resp BP 37.3 ?C (99.1 ?F) 63 16 125/76 SpO2 Temp Source Heart Rate Source Patient Position 98 % Tympanic Monitor Sitting BP Location FiO2 (%) Left arm -- General: Well-developed, well-nourished patient sitting up in bed who appears well. Head: Atraumatic, normocephalic. Eyes: Sclera anicteric. ENT: Mucous membranes moist. Respiratory: Normal respiratory pattern without conversational dyspnea or distress. Skin: Warm and dry. Neuro: Awake and alert with normal speech and mental status. Moves all extremities equally well, no focal deficits or lateralizing signs. Psychiatric: Mood and affect appropriate. Musculoskeletal: No obvious signs of trauma. Heels are symmetrical in appearance and symmetrical to palpation other than the fact that the right heel is tender. There is no erythema, warmth, crepitus, induration, fluctuance or deformity. No tenderness to palpation of the Achilles tendon or the calf muscles. DIAGNOSTIC RESULTS/EMERGENCY DEPARTMENT COURSE and DIFFERENTIAL DIAGNOSIS/MDM: Vitals: Vitals: 01/05/25 1350 BP: 125/76 BP Location: Left arm Patient Position: Sitting Pulse: 63 Resp: 16 Temp: 37.3 ?C (99.1 ?F) TempSrc: Tympanic SpO2: 98% Weight: 88.5 kg (195 lb) Height: 1.651 m (5' 5) Medical Decision Making History obtained from patient. I considered NSAIDs, but she is allergic. She is not tolerating Tylenol. I do not have much else to offer her. I do not feel opioids are indicated in this scenario. Will give a trial of take steroids. I coordinated with [facility] to try to get podiatry follow-up for her. Medications administered in the ED include those listed below. Clinical impression: Right heel pain with history of plantars warts; type 2 diabetes; IBS Patient was discharged with return precautions, instructions for outpatient follow up and prescriptions for prednisone as well as instructions to use ice massage. Interpretation per the Radiologist below, if available at the time of this note: No orders to display Medications - No data to display PROCEDURES: Unless otherwise noted below, none Procedures FINAL IMPRESSION 1. Pain of right heel 2. Type 2 diabetes mellitus without comp (more content not included)... [facility] 3611-19-2024 [address] 11-15-2024 36 FYI: Sched pt for CT-Lung on 12/06/24 and Routine MAMM on 12/17/24. Pt cancelled both test with no reason given per cancellation notes [facility] 11-08-2024 29 Addended by: JOSIE URRUTIA on: 11/08/2024 02:30 PM Modules accepted: Orders [facility] 11-08-2024 36 Pt shed. [facility] sent an d info letter mailed to pt. Extra orders cancelled [facility] 36 yes [facility] 36 There are 3 orders f or pt to have CT-Lung Screen. Scheduling asking if 2 can be cancelled. Okay to do this as patient is scheduled on most recent orders. [facility] 11-01-2024 36 Pt notified via phone Normal [facility] 3610-31-2024 36 A1c improved significantly to 6.8 keep up the good work continue current diabetic medication cholesterol looks good continue Lipitor 40 mg daily kidney and function within normal limits. [facility] CBC W Auto Differential pane l (Bld)on 10-30-2024 Basophils (Bld) [#/Vol] 0.1 10*3/uL 0.0 - 0.2 10*3/uL [facility] Basophils/100 WBC (Bld) 0.6 % 0.0 - 2.0 % [facility] Eosinophils (Bld) [#/Vol] 0.2 10*3/uL 0.0 - 0.5 10*3/uL [facility] Eosinophils/100 WBC (Bld) 2.1 % 0.0 - 6.0 % [facility] Erythrocyte distribution width (RBC) [Ratio] 15.2 % High 11.5 - 15.0 % [facility] Hematocrit (Bld) [Volume fraction] 39.2 % 35.0 - 47.0 % [facility] Hemoglobin (Bld) [Mass/Vol] 12.6 g/dL 11.7 - 16.0 g/dL [facility] Immature granulocytes (Bld) [#/Vol] 0 10*3/uL NINF - 0.1 10*3/uL [facility] Immature granulocytes/100 WBC (Bld) 0.4 % 0.0 - 2.0 % [facility] Interpretation and review of laboratory results Abnormal [facility] Lymphocytes (Bld) [#/Vol] 2.5 10*3/uL 1.0 - 4.3 10*3/uL [facility] Lymphocytes/100 WBC (Bld) 23.5 % 15.0 - 45.0 % [facility] MCH (RBC) [Entitic mass] 26.9 pg 26.0 - 34.0 pg [facility] MCHC (RBC) [Mass/Vol] 32.1 % 30.5 - 36.0 % [facility] MCV (RBC) [Entitic vol] 83.6 fL 77.0 - 99.0 fL [facility] Monocytes (Bld) [#/Vol] 0.9 10*3/uL 0.0 - 0.9 10*3/uL [facility] Monocytes/100 WBC (Bld) 8.1 % 5.0 - 13.0 % [facility] Neutrophils (Bld) [#/Vol] 6.9 10*3/uL 1.8 - 7.5 10*3/uL [facility] Neutrophils/100 WBC (Bld) 65.3 % 38.0 - 82.0 % [facility] Nucleated RBC/100 WBC (Bld) [Ratio] 0 % [facility] Platelet mean volume (Bld) [Entitic vol] 9.8 fL 9.0 - 12.7 fL [facility] Comment on above: MPV is a calculated measurement using platelet volume ratio Platelets (Bld) [#/Vol] 361 10*3/uL 140 - 440 10*3/uL [facility] RBC (Bld) [#/Vol] 4.69 10*6/uL 3.80 - 5.2 0 10*6/uL [facility] WBC (Bld) [#/Vol] 10.6 10*3/uL 3.6 - 10.7 10*3/uL [facility] CBC WITH AUTO DIFFERENTIALon 10-30-2024 Basophils (Bld) [#/Vol] 0.1 10*3/uL Normal 0.0-0.2 [facility] Comment on above: Performed By: #### L [id number] ####Bench Assembly Inspector: JANAE STEWART ([id number])[facility] (SWRL[facility])[address] [place] [address] Basophils/100 WBC (Bld) 0.6 % Normal 0.0-2.0 [facility] Comment on above: Performed By: #### L [id number] ####Bench Assembly Inspector: JANAE STEWART ([id number])[facility] ([place])[address] [place] [address] [place] Eosinophils (Bld) [#/Vol] 0.2 10*3/uL Normal 0.0-0.5 [facility] Comment on above: Performed By: #### L [id number] ####Bench Assembly Inspector: JANAE STEWART ([id number])[facility] ([place])[address] [place] [address] [place] Eosinophils/100 WBC (Bld) 2.1 % Normal 0.0-6.0 [facility] Comment on above: Performed By: #### L [id number] ####Bench Assembly Inspector: JANAE STEWART ([id number])[facility] ([place])[address] [place] [address] Erythrocyte distribution width (RBC) [Ratio] 15.2 % High 11.5-15.0 [facility] Comment on above: Performed By: #### L [id number] ####Bench Assembly Inspector: JANAE STEWART ([id number])[place] ([place])[address] [place] [address] Hematocrit (Bld) [Volume fraction] 39.2 % Normal 35.0-47.0 [facility] Comment on above: Performed By: #### L [id number] ####Bench Assembly Inspector: JANAE STEWART ([id number])[facility]ITAL[facility] [place] ([place])[address] [place] [address] Hemoglobin (Bld) [Mass/Vol] 12.6 g/dL Normal 11.7-16.0 [facility] Comment on above: Performed By: #### L [id number] ####Bench Assembly Inspector: JANAE STEWART ([id number])[facility] [place] ([place])[address] [place] [address] IMMATURE GRANS % 0.4 % Normal 0.0-2.0 [facility] Comment on above: Performed By: #### L [id number] ####Bench Assembly Inspector: JANAE STEWART ([id number])[facility] [place] ([place])[address] [place] [address] IMMATURE GRANS ABSOLUTE 0.0 10*3/uL Normal <0.1 [facility] Comment on above: Performed By: #### L [id number] ####Bench Assembly Inspector: JANAE STEWART ([id number])[facility] [place] ([place])[address] [place] [address] Lymphocytes (Bld) [#/Vol] 2.5 10*3/uL Normal 1.0-4.3 [facility] Comment on above: Performed By: #### L [id number] ####Bench Assembly Inspector: JANAE STEWART ([id number])[facility] [place] ([place])[address] [place] [address] [place] Lymphocytes/100 WBC (Bld) 23.5 % Normal 15.0-45.0 [facility] Comment on above: Performed By: #### L [id number] ####Bench Assembly Inspector: JANAE STEWART ([id number])[facility] [place] ([place])[address] [place] [address] MCH (RBC) [Entitic mass] 26.9 pg Normal 26.0-34.0 [facility] Comment on above: Performed By: #### L [id number] ####Bench Assembly Inspector: JANAE STEWART ([id number])[facility] [place] ([place])[address] [place] [place] [address] MCHC 32.1 % Normal 30.5-36.0 [facility] Comment on above: Performed By: #### L [id number] ####Bench Assembly Inspector: JANAE STEWART ([id number])[facility] [place] ([place])[address] [place] [place] [address] MCV (RBC) [Entitic vol] 83.6 fL Normal 77.0-99.0 [facility] Comment on above: Performed By: #### L [id number] ####Bench Assembly Inspector: JANAE STEWART ([id number])[facility] [place] ([place])[address] [place] [place] [address] Monocytes (Bld) [#/Vol] 0.9 10*3/uL Normal 0.0-0.9 [facility] Comment on above: Performed By: #### L [id number] ####Bench Assembly Inspector: JANAE STEWART ([id number])[facility] [place] ([place])[address] [place] [address] [place] Monocytes/100 WBC (Bld) 8.1 % Normal 5.0-13.0 [facility] Comment on above: Performed By: #### L [id number] ####Bench Assembly Inspector: JANAE STEWART ([id number])[facility] [place] ([place])[address] [place] [address] [place] NEUTROPHILS ABSOLUTE 6.9 10*3/uL Normal 1.8-7.5 [facility] Comment on above: Performed By: #### L [id number] ####Bench Assembly Inspector: JANAE STEWART ([id number])[facility] [place] ([place])[address] Neutrophils/100 WBC (Bld) 65.3 % Normal 38.0-82.0 [facility] Comment on above: Performed By: #### L [id number] ####Bench Assembly Inspector: JANAE STEWART ([id number])[facility] [place] ([place])[address] NRBC 0.0 /100 WBCs Normal 0.0-2.0 [facility] Comment on above: Performed By: #### L [id number] ####Bench Assembly Inspector: JANAE STEWART ([id number])[facility] [place] ([place])[address] [place] [place] [address] Platelet mean volume (Bld) [Entitic vol] 9.8 fL Normal 9.0-12.7 [facility] Comment on above: Result Comment: MPV is a calculated measurement using platelet volume ratio Performed By: #### L [id number] ####Bench Assembly Inspector: JANAE STEWART ([id number])[facility] [place] ([place])[address] [place] [address] [place] Platelets (Bld) [#/Vol] 361 10*3/uL Normal 140-440 [facility] Comment on above: Performed By: #### L [id number] ####Bench Assembly Inspector: JANAE STEWART ([id number])[facility] [place] ([place])[address] RBC (Bld) [#/Vol] 4.69 10*6/uL Normal 3.80-5.20 [facility] Comment on above: Performed By: #### L [id number] ####Bench Assembly Inspector: JANAE STEWART ([id number])[facility] [place] ([place])[address] WBC (Bld) [#/Vol] 10.6 10*3/uL Normal 3.6-10.7 [facility] Comment on above: Performed By: #### L [id number] ####Bench Assembly Inspector: JANAE STEWART ([id number])[facility] [place]ERJEET[place] ([place])[address] COMPREHENSIVE METABOLIC PANE Gerber 10-30-2024 Albumin [Mass/Vol] 4.0 g/dL Normal 3.5-5.0 [facility] Comment on above: Performed By: #### L AB17, LAB18, [id number] ####Bench Assembly Inspector: JANAE STEWART ([id number])[facility] MUKHERJEET[place] ([place])[address] ALP [Catalytic activity/Vol] 122 U/L Normal 40-150 [facility] Comment on above: Performed By: #### L AB17, LAB18, [id number] ####Bench Assembly Inspector: JANAE STEWART ([id number])[facility] [place] ([place]RL[place])[address] [place] [place] [address] ALT [Catalytic activity/Vol] 16 U/L Normal <30 [facility] Comment on above: Performed By: #### L AB17, LAB18, [id number] ####Bench Assembly Inspector: JANAE STEWART ([id number])[facility]ITAL[facility]il[facility] FLORES [facility] (SWRLAB)[address] Anion gap [Moles/Vol] 8 mmol/L Normal 3-13 [facility] Comment on above: Performed By: #### L AB17, LAB18, [id number] ####Bench Assembly Inspector: JANAE STEWART ([id number])[facility]ITAL[facility]iliana FL[facility] (SWRLAB)[address] [place] [address] AST [Catalytic activity/Vol] 23 U/L Normal <34 [facility] Comment on above: Performed By: #### L AB17, LAB18, [id number] ####Bench Assembly Inspector: JANAE STEWART ([id number])[facility]ITALA [place] (SWRLAB)[address] [place] [address] [place] Bilirubin [Mass/Vol] 0.4 mg/dL Normal <1.2 [facility] Comment on above: Performed By: #### L AB17, LAB18, [id number] ####Bench Assembly Inspector: JANAE STEWART ([id number])[facility] [place] [facility] (SWRL[place])[address] Calcium [Mass/Vol] 9.4 mg/dL Normal 8.4-10.2 [facility] Comment on above: Performed By: #### L AB17, LAB18, [id number] ####Bench Assembly Inspector: JANAE STEWART ([id number])[facility] [place] (SW[place])[address] [place] [address] [place] Chloride [Moles/Vol] 107 mmol/L Normal 98-107 [facility] Comment on above: Performed By: #### L AB17, LAB18, [id number] ####Bench Assembly Inspector: JANAE STEWART ([id number])[facility] [place] [facility] (SW[place])[address] [place] [address] [place] CO2 [Moles/Vol] 25 mmol/L Normal 22-29 [facility] Comment on above: Performed By: #### L AB17, LAB18, [id number] ####Bench Assembly Inspector: JANAE STEWART ([id number])[facility] [place] (SW[place])[address] [place] [address] [place] Creatinine [Mass/Vol] 0.80 mg/dL Normal 0.57-1.11 [facility] Comment on above: Performed By: #### L AB17, LAB18, [id number] ####Bench Assembly Inspector: JANAE STEWART ([id number])[facility] [place] (SWRL[place])[address] [place] [address] [place] GLOMERULAR FILTRATION RATE ML/MIN/1.73 SQ M.PREDICTED 85.0 mL/min/1.73m*2 Normal >60.0 [facility] Comment on above: Result Comment: Calc ulation based on the Chronic Kidney Disease Epidemiology Collaboration (CKD-EPI) equation refit without adjustment for race Performed By: #### L AB17, LAB18, [id number] ####Bench Assembly Inspector: JANAE STEWART ([id number])[facility]ITALEm[facility]iana FL[facility]ES [place] (SWRLAB)[address] [place] [address] Glucose [Mass/Vol] 105 mg/dL High 74-100 [facility] Comment on above: Performed By: #### Evette AB17, LAB18, [id number] ####Bench Assembly Inspector: JANAE STEWART ([id number])[facility]ITALEm[facility] FL[place]ES [place] (SWRLAB)[address] [place] [address] [place] Potassium [Moles/Vol] 3.4 mmol/L Low 3.5-5.1 [facility] Comment on above: Result Comment: [facility] potassium values may be up to 0.5 mmol/L lower than serum values. Performed By: #### Evette AB17, LAB18, [id number] ####Bench Assembly Inspector: JANAE STEWART ([id number])[facility]ITALEmiliana [place] [place] (SWRLAB)[address] [place] [address] [place] Protein [Mass/Vol] 7.5 g/dL Normal 6.4-8.3 [facility] Comment on above: Performed By: #### Evette AB17, LAB18, [id number] ####Bench Assembly Inspector: JANAE STEWART ([id number])[facility]ITALEm[facility] [place] (SWRLAB)[address] [place] [address] [place] Sodium [Moles/Vol] 140 mmol/L Normal 136-145 [facility] Comment on above: Performed By: #### L AB17, LAB18, [id number] ####Bench Assembly Inspector: JANAE STEWART ([id number])[facility]ITALEm[facility]iana FL[place] [place] (SWRLAB)[address] [place] [address] [place] Urea nitrogen [Mass/Vol] 10 mg/dL Normal 9-23 [facility] Comment on above: Performed By: #### L AB17, LAB18, [id number] ####Bench Assembly Inspector: JANAE STEWART ([id number])[facility]OS[facility]ITALMARK HUSSAIN (SWRLAB)[address] [place] [address] Comprehensive metabolic 1998 panelon 10-30-2024 Albumin [Mass/Vol] 4 g/dL 3.5 - 5.0 g/dL [facility] ALP [Catalytic activity/Vol] 122 U/L 40 - 150 U/L [facility] ALT [Catalytic activity/Vol] 16 U/L NINF - 30 U/L [facility] Anion gap [Moles/Vol] 8 mmol/L 3 - 13 mmol/L [facility] AST [Catalytic activity/Vol] 23 U/L NINF - 34 U/L [facility] Bilirubin [Mass/Vol] 0.4 mg/dL NINF - 1.2 mg/dL [facility] Calcium [Mass/Vol] 9.4 mg/dL 8.4 - 10. 2 mg/dL [facility] Chloride [Moles/Vol] 107 mmol/L 98 - 10 7 mmol/L [facility] CO2 [Moles/Vol] 25 mmol/L 22 - 29 mmol/L [facility] Creatinine [Mass/Vol] 0.8 mg/dL 0.57 - 1.11 mg/dL [facility] GFR/1.73 sq M.predicted (S/P/Bld) [Vol rate/Area] 85 mL/min - PINF [facility] Comment on above: Calculation based on the Chronic Kidney Disease Epidemiology Collaboration (CKD-EPI) equation refit without adjustment for race Glucose [Mass/Vol] 105 mg/dL High 74 - 100 mg/dL [facility] Potassium [Moles/Vol] 3.4 mmol/L Low 3.5 - 5.1 mmol/L [facility] Comment on above: Plasma potassium mikey ues may be up to 0.5 mmol/L lower than serum values. Protein [Mass/Vol] 7.5 g/dL 6.4 - 8.3 g/dL [facility] Sodium [Moles/Vol] 140 mmol/L 136 - 145 mmol/L [facility] Urea nitrogen [Mass/Vol] 10 mg/dL 9 - 23 mg/dL [facility] HEMOGLOBIN A1Con 10-30-2024 Glucose [Mass/Vol] 148 mg/dL Normal [facility] Comment on above: Result Comment: MICHELLE R COMMENTS: HbA1c values of 5.7-6.4 percent indicate an increased risk for developing diabetes mellitus. HbA1c values greater than or equal to 6.5 percent are diagnostic of diabetes mellitus. For diagnosis of diabetes in individuals without unequivocal hyperglycemia, results should be confirmed by repeat testing. Performed By: #### L [id number] ####Bench Assembly Inspector: JANAE STEWART ([id number])[facility] [employer] (SWRLAB)[address] [place] [address] HEMOGLOBIN A1C 6.8 %HbA1C High <5.7 [facility] Comment on above: Result Comment: Norm al less than 5.7% Prediabetes 5.7% to 6.4% Diabetes 6.5% or higher --HgbA1C levels may not be accurate in patients who have renal disease, received recent blood transfusions, are anemic, or who have dyshemoglobinemia. Performed By: #### L AB90 ####Bench Assembly Inspector: JANAE STEWART ([id number])[facility] [employer] (SWRLAB)[address] [place] [address] HIV 1+2 Ab+HIV1 p24 Ag IA Ql on 10-30-2024 Interpretation and review of laboratory results Normal [facility] HIV-1 and HIV-2 Antigen-Anti body Screenon 10-30-2024 HIV 1+2 Ab+HIV1 p24 Ag IA Ql Non-Reactive Nonreactive [facility] Comment on above: The specimen was non -reactive for HIV-1 and HIV-2 antibodies and p24 antigen using an FDA-cleared 4th generation HIV test. Based on this non-reactive screen result, further reflexive testing was not indicated and was, therefore, not performed. HIV1,2 COMBO ANTIGEN-ANTIBOD Y SCREENon 10-30-2024 HIV 1,2 COMBO ANTIGEN/ANTIBODY Non-Reactive Normal Nonreactive [facility] Comment on above: Result Comment: The specimen was non-reactive for HIV-1 and HIV-2 antibodies and p24 antigen using an FDA-cleared 4th generation HIV test. Based on this non-reactive screen result, further reflexive testing was not indicated and was, therefore, not performed. Performed By: #### L [id number] ####Bench Assembly Inspector: JANAE STEWART ([id number])[facility] (SACLAB)[address] [place] [address] Hemoglobin A1con 10-30-2024 Average glucose Estimated from glycated hemoglobin (Bld) [Mass/Vol] 148 mg/dL [facility] HbA1c (Bld) [Mass fraction] 6.8 % High [facility] Comment on above: Normal less than 5.7 % Prediabetes 5.7% to 6.4% Diabetes 6.5% or higher --HgbA1C levels may not be accurate in patients who have renal disease, received recent blood transfusions, are anemic, or who have dyshemoglobinemia. Interpretation and review of laboratory results Abnormal [facility] HbA1c values of 5.7- 6.4 percent indicate an increased risk for developing diabetes mellitus. HbA1c values greater than or equal to 6.5 percent are diagnostic of diabetes mellitus. For diagnosis of diabetes in individuals without unequivocal hyperglycemia, results should be confirmed by repeat testing. [facility] LIPID PANELon 10-30-2024 Cholesterol [Mass/Vol] 163 mg/dL Normal <200 [facility] Comment on above: Performed By: #### L AB17, LAB18, [id number] ####Bench Assembly Inspector: JANAE STEWART ([id number])[facility] HOSPITALMARK AssemblaJUVENTINO ([facility]ENTERLAB)[address] [place] [address] Cholesterol in HDL [Mass/Vol] 46 mg/dL Low >=60 [facility] Comment on above: Performed By: #### L AB17, LAB18, [id number] ####Bench Assembly Inspector: JANAE STEWART ([id number])[facility] AssemblaAN ([facility]ENTER[facility])[address] Cholesterol.total/Cho lesterol in HDL [Mass ratio] 4 {ratio} Normal [facility] Comment on above: Result Comment: Ref Range: < 3 Low Risk for CHD 3-6 Mod Risk for CHD > 6 High Risk for CHD Performed By: #### L AB17, LAB18, [id number] ####Bench Assembly Inspector: JANAE STEWART ([id number])[facility]ITALEmiliana FL[facility] [place] (SWRLAB)[address] LOW DENSITY LIPOPROTEIN 88 mg/dL Normal 0-<100 [facility] Comment on above: Performed By: #### L AB17, LAB18, [id number] ####Bench Assembly Inspector: JANAE STEWART ([id number])[place] (SWRLAB)[address] NON-HDL CHOLESTEROL, CALCULATED 117 Normal <130 [facility] Comment on above: Performed By: #### L AB17, LAB18, [id number] ####Bench Assembly Inspector: JANAE STEWART ([id number])[facility]ITALEmiliana FL[facility] [place] (SWRLAB)[address] [place] [address] Triglyceride [Mass/Vol] 144 mg/dL Normal <150 [facility] Comment on above: Performed By: #### L AB17, LAB18, [id number] ####Bench Assembly Inspector: JANAE STEWART ([id number])[facility]ITALEm[facility] [place] [place] (SWRLAB)[address] VERY LOW DENSITY LIPOPROTEIN, CALCULATED 29 mg/dL Normal <=30 [facility] Comment on above: Performed By: #### L AB17, LAB18, [id number] ####Bench Assembly Inspector: JANAE STEWART ([id number])[facility]ITALEm[facility] [place] [place] (SWRLAB)[address] [place] [address] Lipid 1996 panelon 5 Cholesterol [Mass/Vol] 163 mg/dL NINF - 200 mg/dL [facility] Cholesterol in HDL [Mass/Vol] 46 mg/dL Low 60 - PINF mg/dL [facility] Cholesterol in LDL [Mass/Vol] 88 mg/dL 0 - <100 [facility] Cholesterol.total/Cho lesterol in HDL [Mass ratio] 4 {ratio} [facility] Comment on above: Ref Range: < 3 Low Risk for CHD 3-6 Mod Risk for CHD > 6 High Risk for CHD NON-HDL CHOLESTEROL, CALCULATED 117 NINF - 130 [facility] Triglyceride [Mass/Vol] 144 mg/dL [facility] - 150 mg/dL [facility] VERY LOW DENSITY LIPOPROTEIN, CALCULATED 29 mg/dL [facility] - 30 mg/dL [facility] No Panel Informationon 10-30 Interpretation and review of laboratory results Abnormal [facility] Office Visiton 10-30-2024 Follow-up visit [id number] Marleny Dorman 1965 F Date Provider Department Center 10/30/2024 [id number] VARNER [facility] Family History Problem Relation Age of Onset High Blood Pressure Father Arthritis Brother Hyperlipidemia Mother Diabetes Mother High Blood Pressure Mother Arthritis Mother Hyperlipidemia Father Family Status - Relation Status Age at Father Alive Brother Alive Mother Alive Level of Service:50147 [place] OFFICE/OUTPATIENT ESTABLISHED MOD MDM 30 MIN Reason for Visit and Comments: Follow-up [546157] Normal [facility] Progress Noteon 10-30-2024 Progress Note [facility] - [address] [facility] [address] Dept: [phone] Dept Loc: [phone] Reason for Visit: Follow-up Assessment and Plan 1. Type 2 diabetes mellitus without complication, without long-term current use of insulin (CMS/HCC) (HCC) - dapagliflozin (Farxiga) 10 MG tablet; Take 1 tablet (10 mg) by mouth daily., Starting Tue10/30/2024, Until Tue01/28/2025, Normal - metFORMIN (Glucophage) 1000 MG tablet; Take 1 tablet (1,000 mg) by mouth 2 times daily (with meals)., Starting Tue10/30/2024, Until Tue04/28/2025, Normal - Lipid panel - CBC auto differential - Comprehensive metabolic panel - TSH - Hemoglobin A1c - HIV-1 and HIV-2 Antigen-Antibody Screen 2. Major depressive disorder, recurrent severe without psychotic features (HCC) - Lipid panel - CBC auto differential - Comprehensive metabolic panel - TSH - HIV-1 and HIV-2 Antigen-Antibody Screen 3. HTN (hypertension), benign - Lipid panel - CBC auto differential - Comprehensive metabolic panel - TSH - Hemoglobin A1c - HIV-1 and HIV-2 Antigen-Antibody Screen 4. Hypercholesteremia - HIV-1 and HIV-2 Antigen-Antibody Screen 5. Essential hypertension, benign - amLODIPine (Norvasc) 10 MG tablet; Take 1 tablet (10 mg) by mouth daily., Starting Tue10/30/2024, Normal - irbesartan (Avapro) 150 MG tablet; Take 1 tablet (150 mg) by mouth daily., Starting Tue10/30/2024, Normal - HIV-1 and HIV-2 Antigen-Antibody Screen Smoking she is seeing the patches. She never scheduled for CT lung screening. We have to reauthorize the test because it was never completed. Advised patient the importance of getting tests current treatment plan is effective, no change in therapy, orders and follow up as documented in EMR, lab results reviewed with patient, repeat labs ordered prior to next appointment, reviewed compliance with lifestyle measures, reviewed diet, exercise and weight control, reviewed medications and side effects in detail Return visit in 3 month. Subjective HPI 59-year-old female who has been working very hard losing weight watching her diabetes she is now exercising daily. She states she has been decreasing carbohydrates never eat much sweets she could not afford the [employer] system so we discussed she needs to get a glucometer and test strips I will write a prescription she needs to check at fasting once a day in the a.m. she has an appointment coming up with her retinal specialist she does see psychiatry for her mental health. No new issues with that she also has a history of hyperlipidemia she is on a statin no muscle pain or weakness. Review of Systems Constitutional: Negative. Negative for activity change, appetite change and fever. HENT: Negative. Negative for congestion. Eyes: Negative. Negative for discharge. Respiratory: Negative. Negative for chest tightness. Cardiovascular: Negative. Gastrointestinal: Negative. Endocrine: Negative. Negative for cold intolerance. Genitourinary: Negative for difficulty urinating. Musculoskeletal: Negative. Neurological: Negative. Negative for dizziness, facial asymmetry and headaches. Hematological: Negative. Allergies Allergen Reactions Nsaids Anaphylaxis, Hives and Itching Pt gets hives and itching from taking any NSAIDS Sulfa Antibiotics Diarrhea Other reaction(s): GI Upset Sulfamethoxazole-Trimeth oprim Diarrhea and Nausea And Vomiting Current Outpatient Medications Medication Sig Dispense Refill cholecalciferol (Vitamin D-3) 25 MCG (1000 UT) tablet Take 1,000 Units by mouth daily. clonazePAM (KlonoPIN) 0.5 MG tablet Take 0.5 mg by mouth in the morning and 0.5 mg in the evening. colesevelam (Welchol) 625 MG tablet Take 1,250 mg by mouth 2 times daily. linaGLIPtin (Tradjenta) 5 MG tablet Take 1 tablet (5 mg) by mouth daily. 90 tablet 1 mirtazapine (Remeron) 30 MG tablet Take 45 mg by mouth. PARoxetine (Paxil) 20 MG tablet Take 20 mg by mouth 2 times daily. amLODIPine (Norvasc) 10 MG tablet Take 1 tablet (10 mg) by mouth daily. 90 tablet 1 atorvastatin (Lipitor) 40 MG tablet Take 1 tablet (40 mg) by mouth daily. 90 tablet 1 dapagliflozin (Farxiga) 10 MG tablet Take 1 tablet (10 mg) by mouth daily. 90 tablet 1 glimepiride (Amaryl) 4 MG tablet TAKE ONE BY MOUTH TWICE DAILY WITH MEALS 180 tablet 1 Glucometer by Other route daily. Once daily thing in the a.m. 1 kit 0 glucose blood test strip Use as instructed 100 each 12 irbesartan (Avapro) 150 MG tablet Take 1 tablet (150 mg) by mouth daily. 90 tablet 1 Lancets by Other route daily. 100 each 12 metFORMIN (Glucophage) 1000 MG tablet Take 1 tablet (1,000 mg) by mouth 2 times daily (with meals). 180 tablet 1 No current facility-administered medications for this visit. Patient Active Problem List Diagnosis Hypoxia Personal history of noncompliance with medical treatmen (more content not included)... Normal [facility] THYROID STIMULATING HORMONEo n 10-30-2024 THYROID STIMULATING HORMONE 1.10 uIU/mL Normal 0.35-4.94 [facility] Comment on above: Performed By: #### L AB17, LAB18, [id number] ####Bench Assembly Inspector: JANAE STEWART ([id number])[facility]PITALMARKMUNIRA AUGUST (RLAB)[address] [place] [address] TSHon 10-30-2024 TSH Qn 1.1 m[IU]/L [facility] TSH Qnon 10-30-2024 Interpretation and review of laboratory results Normal [facility] 36on 10-09-2024 36 We have been unable to reach your patient to schedule their testing. Test Name: CT lung screening low dose 1st Attempt: 10/05/24 2nd Attempt: 10/09/24 [place] [address]on 10-07-2024 36 Name of caller: Philly Contact phone number: [phone] Relationship to Patient: Patient Provider: Dr. Varner Practice: [facility] Chief Complaint/Reason for Call: Patient states that her prescriptions were cancelled at her pharmacy. She is requesting they be sent back over, as she is out of them. Please advise. glimepiride metFORMIN linaGLIPtin Best time of day caller can be reached: any Patient advised that office/PCP has 24-48 business hours to return their call: Yes [address] 09-24-2024 36 Message released to patient as written. Office does not except refill request via fax. Patient will need to call for refills. Patient's further questions if applicable: no Were all questions from office addressed or relayed to the patient from encounter: Yes [address] 09-18-2024 36 Office does not exce pt refill request via fax. Patient will need to call for refills. [facility] 36 Name of caller: Sedrick Contact phone number: [phone] Relationship to Patient: Pharmacist Provider: Annie Practice: [facility] Chief Complaint/Reason for Call: Surendra states he will fax over information about several medications that need filled. Please advise Pharmacy with further questions. Best time of day caller can be reached: any Patient advised that office/PCP has 24-48 business hours to return their call: Yes [address] 09-07-2024 36 Ordering provider: Melany Varner Date of last office visit: 08/20/24 Date of next office visit: 10/23/24 Updated/Validated preferred pharmacy: Yes Patient instructed to contact the pharmacy prior to picking up the medication: Yes (1) Medication name: linaGLIPtin (Tradjenta) 5 MG tablet () Monthly quantity needed: 30 How many day supply requestin days Medication route: oral (PO) Medication administration time(s): daily If taking medication PRN, reason for taking medication: N/A If this is a controlled substance do you receive this or any other controlled medication from any other doctor or facility: No Date of last refill (see medication tab): (2) Medication name: metFORMIN (Glucophage) 1000 MG tablet () Monthly quantity needed: 60 How many day supply requestin days Medication route: oral (PO) Medication administration time(s): 2 times a day (BID) If taking medication PRN, reason for taking medication: N/A If this is a controlled substance do you receive this or any other controlled medication from any other doctor or facility: N/A Date of last refill (see medication tab): [facility] 08-21-2024 36 Confirmed with martinez gibson she wants brand name Pharmacy aware [place] [id number] Call patient and eulogio ck with her. I believe she had requested DISPENSE as written confirmwith patient. And let her know the message below [place] [address] Name of caller: Saurabh Contact phone number: [phone] Relationship to Patient: [facility] Provider: Dr. Varner Practice: [facility] Chief Complaint/Reason for Call: Saurabh from [facility] is calling to see if the medication can be resent to them because the patient wants the brand name on the prescription called dapagliflozin (Farxiga) 10 MG tablet. The current RX is written as ISA and Saurabh is asking if the updated prescription can be resent to [facility] without the ISA. Please advise. Best time of day caller can be reached: Any Patient advised that office/PCP has 24-48 business hours to return their call: No [place] [id number] 36 Name of caller: Kobe Contact phone number: [phone] Relationship to Patient: [facility] Pharmacy Provider: Annie Practice: John August [facility] Chief Complaint/Reason for Call: Patient is asking for brand name of dapagliflozin (Farxiga) 10 MG tablet. The prescription was written with a ISA code. Can the doctor take the ISA code off prescription. A new script or verbal can be done. Please advise.. Best time of day caller can be reached: any Patient advised that office/PCP has 24-48 business hours to return their call: No Normal [facility] 36 Appt set up with pt per Dr. Varner Normal [facility] Progress Noteon 08-20-2024 Progress Note [facility] - [address] [place] [address] Dept: [phone] Dept Loc: [phone] Reason for Visit: discharge Patient was identified and seen today via Telehealth by agreement and consent. I used the following Telehealth technology: Audio capability only. Total length of call 20 minutes. The patient was offered and advised video for a more comprehensive evaluation, but the patient declined or was unable to use video. Patient location: Patient Location: Home. This patient encounter is appropriate and reasonable under the circumstances: . The patient has been advised of the potential risks and limitations of this mode of treatment (including but not limited to the absence of in-person examination) and has agreed to be treated in a remote fashion in spite of them. Any and all of the patient's/patient's family's questions on this issue have been answered and I have made no promises or guarantees to the patient. The patient has also been advised to contact this office for worsening conditions or problems, and seek emergency medical treatment and/or call 911 if the patient deems either necessary. The patient stated that they are currently in the [facility]. If the patient is a minor, permission has been obtained by the parent or guardian for the patient to receive medical care at this visit. Assessment and Plan 1. Yeast infection Diflucan milligrams x 7 days sent to pharmacy. Discussed with patient if symptoms persist would recommend a follow-up appointment for this. 2. Type 2 diabetes mellitus without complication, without long-term current use of insulin ([facility] ([facility]) - dapagliflozin (Farxiga) 10 MG tablet; Take 1 tablet (10 mg) by mouth daily., Starting 08/20/2024, Until 11/18/2024, Normal current treatment plan is effective, no change in therapy, orders and follow up as documented in EMR, lab results reviewed with patient, repeat labs ordered prior to next appointment, reviewed compliance with lifestyle measures, reviewed diet, exercise and weight control, reviewed medications and side effects in detail Return visit in 3 months. Subjective MILVIA is a 59-year-old female patient who has been complaining of some vaginal itching and whitish discharge that she has had for the last several days. She is not sexually active. She had a hysterectomy done years ago this was a complete hysterectomy for noncancerous reasons. Review of Systems Constitutional: Negative. Genitourinary: Positive for vaginal discharge. Allergies Allergen Reactions Nsaids Anaphylaxis, Hives and Itching Pt gets hives and itching from taking any NSAIDS Sulfa Antibiotics Diarrhea Other reaction(s): GI Upset Sulfamethoxazole-Trimeth oprim Diarrhea and Nausea And Vomiting Outpatient Medications Prior to Visit Medication Sig Dispense Refill amLODIPine (Norvasc) 10 MG tablet Take 1 tablet (10 mg) by mouth daily. 90 tablet 1 atorvastatin (Lipitor) 40 MG tablet TAKE TWO BY MOUTH EVERY OTHER DAY ALTERNATING WITH ONE EVERY OTHER DAY 135 tablet 0 cholecalciferol (Vitamin D-3) 25 MCG (1000 UT) tablet Take 1,000 Units by mouth daily. clonazePAM (KlonoPIN) 0.5 MG tablet Take 0.5 mg by mouth in the morning and 0.5 mg in the evening. colesevelam (Welchol) 625 MG tablet Take 1,250 mg by mouth 2 times daily. Continuous Glucose Sensor (FreeStyle Hector 3 Plus Sensor) misc 1 Device every 15 days. 1 each 11 glimepiride (Amaryl) 4 MG tablet TAKE ONE BY MOUTH TWICE DAILY WITH MEALS 180 tablet 1 irbesartan (Avapro) 150 MG tablet Take 1 tablet (150 mg) by mouth daily. 90 tablet 1 linaGLIPtin (Tradjenta) 5 MG tablet Take 1 tablet (5 mg) by mouth daily. 90 tablet 1 metFORMIN (Glucophage) 1000 MG tablet Take 1 tablet (1,000 mg) by mouth in the morning and 1 tablet (1,000 mg) in the evening. Take with meals. 180 tablet 1 mirtazapine (Remeron) 30 MG tablet Take 45 mg by mouth. PARoxetine (Paxil) 20 MG tablet Take 20 mg by mouth 2 times daily. dapagliflozin (Farxiga) 10 MG tablet TAKE ONE TABLET (10 MG) BY MOUTH DAILY (WITH BREAKFAST). 90 tablet 0 No facility-administered medications prior to visit. Patient Active Problem List Diagnosis Hypoxia Personal history of noncompliance with medical treatment, presenting hazards to health Severe obesity (BMI 35.0-39.9) with comorbidity (HCC) Malaise and fatigue Type 2 diabetes mellitus without complication, without long-term current use of insulin (CMS/HCC) (HCC) Esophageal reflux Episode of recurrent major depressive disorder (HCC) Current smoker Pain in joint, ankle and foot Hypercholesteremia Fatty liver Insomnia Abnormal TSH Colitis Hypertension Graves disease Mediastinal mass Steroid-induced hyperglycemia Pneumonia due to COVID-19 virus Chronic low back pain Vitamin D deficiency Major depressive disorder, recurre (more content not included)... [address] 08-17-2024 36 S: Patient spoke wit h [facility] nurse regarding yeast infection. B: Onset of symptoms/concern yeast infection started when she moved into her home. She now has well water. She does not drink it but does use it for washing. She is having itching with white clumpy discharge. She denies odor or urinary issues. Denies fever or further issues. She is requesting two doses of fluconazole, as that is how much it usually takes for her to get relief. R: Patient last seen 07/26/24. She is asking for med be sent to [facility] in [place]. Allergies reviewed. She understands that this is up to the provider as she has not been seen or given a urine sample. No further needs at this time. Patient instructed to call back with new or worsening symptoms. Reason for Disposition ? Patient wants to be seen Protocols used: Urinary [id number] [address] 08-13-2024 [address] 08-11-2024 36 New order put in [address] 08-10-2024 36 Addressed in another TE Normal [place] [id number] Will need new orders with updated dx. Previous dx of F17.200 didn't pass medical necessity. You can use #F17.210 [place] [id number] Caitie, The pt has an appointment for a CT lung screening 09/05/24 at 2:30. They are currently failing medical necessity. Please update as soon as possible. Thank you, Mayela [address] 07-30-2024 36 Ok thank you [address] 07-27-2024 36 There is an order th ere from April do I need to create another order? Normal [facility] 36 I was told by shreya howard that previous orders for CT-Lung Screen doesn't pass medical necessity. We need new orders please [facility] 36 We have been unable to reach your patient to schedule their testing. Test Name: CT lung screening low dose 1st Attempt: [employer] message sent on 05/26/24 2nd Attempt: left voicemail for patient to call back to schedule testing on 07/27/24 Normal [facility] Progress Noteon 07-27-2024 Progress Note Spoke to pharmacy an d they do not handle sensors, called patient to explain and gave her the Medicare guidelines for CGM, she understands and will keep using her glucometer [facility] 36on 07-25-2024 36 ----- Message from Melany Varner MD sent at 07/25/2024 2:35 PM EST ----- A1c stable at 7.3 continue current diabetic meds continue to increase exercise and decrease carbohydrates no acute findings found on blood work [facility] Office Visiton 07-24-2024 Follow-up visit [id number] Marleny Dorman 1965 F Date Provider Department Center 07/24/2024 [id number] VARNER [facility] Family History Problem Relation Age of Onset High Blood Pressure Father Arthritis Brother Hyperlipidemia Mother Diabetes Mother High Blood Pressure Mother Arthritis Mother Hyperlipidemia Father Family Status - Relation Status Age at Father Alive Brother Alive Mother Alive Level of Service:41544 [place] OFFICE/OUTPATIENT ESTABLISHED MOD MDM 30 MIN Reason for Visit and Comments: Follow-up [978105] - Pt had flu vaccine already [facility] Progress Noteon 07-24-2024 Progress Note [facility] [address] [facility] [address] Dept: [phone] Dept Loc: [phone] Reason for Visit: Follow-up (Pt had flu vaccine already ) Assessment and Plan 1. Hypercholesteremia patient was advised to continue taking her low-fat diet and exercise Lipitor will check a liver function test 2. Type 2 diabetes mellitus without complication, without long-term current use of insulin ([facility]/HCC) (HCC) we will see if her hector was covered. Patient to continue fark [employer] and Amaryl. Reviewed last A1c stable. - Continuous Glucose Sensor (FreeStyle Hector 3 Plus Sensor) misc; 1 Device every 15 days., Starting Tue07/24/2024, Normal - Hemoglobin A1c - Lipid panel - Comprehensive metabolic panel 3. Major depressive disorder, recurrent severe without psychotic features ([facility]) psychiatry is following 4. Current smoker CT scan was ordered. Patient did not follow through with this. I encouraged her to get the CT scan done. And to stop smoking. 5. HTN (hypertension), benign patient and I discussed continuing her Norvasc. current treatment plan is effective, no change in therapy, orders and follow up as documented in EMR, lab results reviewed with patient, repeat labs ordered prior to next appointment, reviewed compliance with lifestyle measures, reviewed diet, exercise and weight control, reviewed medications and side effects in detail Return visit in 3 months. Subjective HPI this is a 59-year-old female who has been seeing us for multiple medical reasons she is a type II diabetic. We tried a stable and get her hector covered as she does not have some difficulty checking her blood sugars. We discussed continuing the metformin to Tradjenta the glimepiride no hypoglycemic episodes we discussed seeing an eye doctor she is been watching her diet and exercising. She is under little stress. Has a history of high blood pressure no chest pain complaints no shortness of breath. However she had a CT lung screening that was ordered by me did not follow through with this and she did not get scheduled. I encouraged patient to get this test done. And to stop smoking Review of Systems Constitutional: Negative. Negative for activity change, appetite change and fever. HENT: Negative. Negative for congestion. Eyes: Negative. Negative for discharge. Respiratory: Negative. Negative for chest tightness. Cardiovascular: Negative. Gastrointestinal: Negative. Endocrine: Negative. Negative for cold intolerance. Genitourinary: Negative for difficulty urinating. Musculoskeletal: Negative. Neurological: Negative. Negative for dizziness, facial asymmetry and headaches. Hematological: Negative. Allergies Allergen Reactions Nsaids Anaphylaxis, Hives and Itching Pt gets hives and itching from taking any NSAIDS Sulfa Antibiotics Diarrhea Other reaction(s): GI Upset Sulfamethoxazole-Trimeth oprim Diarrhea and Nausea And Vomiting Outpatient Medications Prior to Visit Medication Sig Dispense Refill amLODIPine (Norvasc) 10 MG tablet Take 1 tablet (10 mg) by mouth daily. 90 tablet 1 atorvastatin (Lipitor) 40 MG tablet TAKE TWO BY MOUTH EVERY OTHER DAY ALTERNATING WITH ONE EVERY OTHER DAY 135 tablet 0 cholecalciferol (Vitamin D-3) 25 MCG (1000 UT) tablet Take 1,000 Units by mouth daily. clonazePAM (KlonoPIN) 0.5 MG tablet Take 0.5 mg by mouth in the morning and 0.5 mg in the evening. colesevelam (Welchol) 625 MG tablet Take 1,250 mg by mouth 2 times daily. dapagliflozin (Farxiga) 10 MG tablet TAKE ONE TABLET (10 MG) BY MOUTH DAILY (WITH BREAKFAST). 90 tablet 0 glimepiride (Amaryl) 4 MG tablet TAKE ONE BY MOUTH TWICE DAILY WITH MEALS 180 tablet 1 irbesartan (Avapro) 150 MG tablet Take 1 tablet (150 mg) by mouth daily. 90 tablet 1 linaGLIPtin (Tradjenta) 5 MG tablet Take 1 tablet (5 mg) by mouth daily. 90 tablet 1 metFORMIN (Glucophage) 1000 MG tablet Take 1 tablet (1,000 mg) by mouth in the morning and 1 tablet (1,000 mg) in the evening. Take with meals. 180 tablet 1 mirtazapine (Remeron) 30 MG tablet Take 45 mg by mouth. PARoxetine (Paxil) 20 MG tablet Take 20 mg by mouth 2 times daily. Continuous Glucose Sensor (FreeStyle Hector 3 Plus Sensor) misc 1 Device every 15 days. 1 each 11 No facility-administered medications prior to visit. Patient Active Problem List Diagnosis Hypoxia Personal history of noncompliance with medical treatment, presenting hazards to health Severe obesity (BMI 35.0-39.9) with comorbidity (HCC) Malaise and fatigue Type 2 diabetes mellitus without complication, without long-term current use of insulin (CMS/HCC) (HCC) Esophageal reflux Episode of recurrent major depressive disorder (HCC) Current smoker Pain in joint, ankle and foot Hypercholesteremia Fatty liver Insomnia Abnormal TSH Colitis Hypertension Graves disease Mediastinal ma (more content not included)... Normal [facility] SHS CBC W Auto Differential pane l (Bld)on 05-09-2024 Basophils (Bld) [#/Vol] 75 10*3/uL [facility] Basophils/100 WBC (Bld) 0.7 % [facility] Eosinophils (Bld) [#/Vol] 235 10*3/uL [facility] Eosinophils/100 WBC (Bld) 2.2 % [facility] Erythrocyte distribution width (RBC) [Ratio] 15.9 % High 11.0 - 15.0 % [facility] Hematocrit (Bld) [Volume fraction] 42.2 % 35.0 - 45.0 % [facility] Hemoglobin (Bld) [Mass/Vol] 13.1 g/dL 11.7 - 15.5 g/dL [facility] Lymphocytes (Bld) [#/Vol] 2600 10*3/uL [facility] Lymphocytes/100 WBC (Bld) 24.3 % [facility] MCH (RBC) [Entitic mass] 24.9 pg Low 27.0 - 33.0 pg [facility] MCHC (RBC) [Mass/Vol] 31.0 g/dL Low 32.0 - 36.0 g/dL [facility] MCHC (RBC) [Mass/Vol] 31 g/dL Low 32.0 - 36.0 g/dL [facility] MCV (RBC) [Entitic vol] 80.1 fL 80.0 - 100.0 fL [facility] Monocytes (Bld) [#/Vol] 685 10*3/uL [facility] Monocytes/100 WBC (Bld) 6.4 % [facility] Neutrophils (Bld) [#/Vol] 7105 10*3/uL [facility] Neutrophils/100 WBC (Bld) 66.4 % [facility] Platelet mean volume (Bld) [Entitic vol] 10.7 fL 7.5 - 12.5 fL [facility] Platelets (Bld) [#/Vol] 424 10*3/uL High [facility] RBC (Bld) [#/Vol] 5.27 10*6/uL High [facility] WBC (Bld) [#/Vol] 10.7 10*3/uL [facility] Comprehensive metabolic 1998 panelon 05-09-2024 Albumin [Mass/Vol] 4.4 g/dL 3.6 - 5.1 g/dL [facility] Albumin/Globulin [Mass ratio] 1.6 {ratio} [facility] ALP [Catalytic activity/Vol] 100 U/L 37 - 153 U/L [facility] ALT [Catalytic activity/Vol] 11 U/L 6 - 29 U/L [facility] AST [Catalytic activity/Vol] 18 U/L 10 - 35 U/L [facility] Bilirubin [Mass/Vol] 0.4 mg/dL 0.2 - 1 .2 mg/dL [facility] Calcium [Mass/Vol] 9.7 mg/dL 8.6 - 10. 4 mg/dL [facility] Chloride [Moles/Vol] 102 mmol/L 98 - 11 0 mmol/L [facility] CO2 [Moles/Vol] 23 mmol/L 20 - 32 mmol/L [facility] Creatinine [Mass/Vol] 0.62 mg/dL 0.50 - 1.03 mg/dL [facility] GFR/1.73 sq M.predicted among non-blacks MDRD (S/P/Bld) [Vol rate/Area] 103 mL/min/{1.73_m2} > OR = 60 mL/min/1.73m2 [facility] Globulin (S) [Mass/Vol] 2.8 g/dL [facility] Glucose [Mass/Vol] 102 mg/dL 65 - 139 mg/dL [facility] Comment on above: Non-fasting reference interval For someone without known diabetes, a glucose value between 100 and 125 mg/dL is consistent with prediabetes and should be confirmed with a follow-up test. Potassium [Moles/Vol] 4.0 mmol/L 3.5 - 5.3 mmol/L [facility] Potassium [Moles/Vol] 4 mmol/L 3.5 - 5.3 mmol/L [facility] Protein [Mass/Vol] 7.2 g/dL 6.1 - 8.1 g/dL [facility] Sodium [Moles/Vol] 138 mmol/L 135 - 146 mmol/L [facility] Urea nitrogen [Mass/Vol] 10 mg/dL 7 - 25 mg/dL [facility] Urea nitrogen/Creatinine [Mass ratio] SEE NOTE: [facility] Comment on above: Not Reported: BUN an d Creatinine are within reference range. Laboratory - Chemistry and C hemistry - challengeon 05-09-2024 Magnesium [Mass/Vol] 1.7 mg/dL 1.5 - 2 .5 mg/dL [facility] - Hematology and Cell countson 05-09-2024 HbA1c (Bld) [Mass fraction] 7.2 % High [facility] Comment on above: For someone without known diabetes, a hemoglobin A1c value of 6.5% or greater indicates that they may have diabetes and this should be confirmed with a follow-up test. For someone with known diabetes, a value <7% indicates that their diabetes is well controlled and a value greater than or equal to 7% indicates suboptimal control. A1c targets should be individualized based on duration of diabetes, age, comorbid conditions, and other considerations. Currently, no consensus exists regarding use of hemoglobin A1c for diagnosis of diabetes for children. This test was performed on the Priscilla josselin c503 platform. Effective 08/01/23, a change in test platforms from the [employer] to the Priscilla josselin c503 may have shifted HbA1c results compared to historical results. Based on laboratory validation testing conducted at [facility], the Priscilla platform relative to the Hammonds platform had an average increase in HbA1c value of < or = 0.3%. This difference is within accepted variability established by the National Glycohemoglobin Standardization Program. Note that not all individuals will have had a shift in their results and direct comparisons between historical and current results for testing conducted on different platforms is not recommended. Lipid 1996 panelon 4 Cholesterol [Mass/Vol] 166 mg/dL [facility] - 200 mg/dL [facility] Cholesterol in HDL [Mass/Vol] 51 mg/dL > OR = 50 [facility] Cholesterol in LDL [Mass/Vol] 89 mg/dL mg/dL (calc) [facility] Comment on above: Reference range: <10 0 Desirable range <100 mg/dL for primary prevention; <70 mg/dL for patients with CHD or diabetic patients with > or = 2 CHD risk factors. LDL-C is now calculated using the Marcus-Ger calculation, which is a validated novel method providing better accuracy than the Friedewald equation in the estimation of LDL-C. Marcus SS et al. MICHAEL. 2013;310(19): 2239-4734 (http://education.[employer]/faq/QQL740) Cholesterol non HDL [Mass/Vol] 115 mg/dL [facility] Comment on above: For patients with di abetes plus 1 major ASCVD risk factor, treating to a non-HDL-C goal of <100 mg/dL (LDL-C of <70 mg/dL) is considered a therapeutic option. Cholesterol.total/Cho lesterol in HDL [Mass ratio] 3.3 {ratio} [facility] Triglyceride [Mass/Vol] 159 mg/dL High [facility] - 150 mg/dL [facility] Magnesium [Mass/Vol]on 05-09 [facility] No Panel Informationon 05-09 Interpretation and review of laboratory results Abnormal [facility] 29on 05-08-2024 29 Addended by: JOSIE URRUTIA on: 11/08/2024 02:22 PM Modules accepted: Orders Normal [facility] 36on 05-08-2024 36 Pt in office today requesting hector CGM, she does not currently use insulin daily. Will send order to pharmacy but will most likely require to quintana pay as this will not meet guidelines. Order pended and sent to provider [facility] Office Visiton 05-08-2024 Follow-up visit [id number] Marleny Dorman 1965 F Date Provider Department Center 05/08/2024 [id number] VARNER [facility] Family History Problem Relation Age of Onset High Blood Pressure Father Arthritis Brother Hyperlipidemia Mother Diabetes Mother High Blood Pressure Mother Arthritis Mother Hyperlipidemia Father Family Status - Relation Status Age at Father Alive Brother Alive Mother Alive Level of Service:62529 [place] OFFICE/OUTPATIENT ESTABLISHED MOD MDM 30 MIN Reason for Visit and Comments: Follow-up [173128] Flu Vaccine [189] - Patient has agreed to receive influenza vaccine in the office today. [facility] Progress Noteon 05-08-2024 Progress Note [facility] - [address] [facility] [address] Dept: [phone] Dept Loc: [phone] Reason for Visit: Follow-up and Flu Vaccine (Patient has agreed to receive influenza vaccine in the office today. /) Assessment and Plan 1. Hypercholesteremia patient will continue Lipitor 40 mg check a liver function test and lipid panel - Hemoglobin A1c - CBC auto differential - Comprehensive metabolic panel - Lipid panel - Magnesium 2. Type 2 diabetes mellitus without complication, without long-term current use of insulin ([facility]) (HCC) patient has not been checking her blood sugars. Advised patient I do recommend at least checking blood sugars once a day however we will try to see if they freestyle hector sensor would be covered by her insurance. As she would benefit from checking her blood sugars. Tradjenta metformin and statin as well as fark [employer]IG[employer] all recommended weight loss diet and exercise - Hemoglobin A1c - CBC auto differential - Comprehensive metabolic panel - Lipid panel - Magnesium 3. Major depressive disorder, recurrent severe without psychotic features ([facility]) currently doing well on Paxil. - Hemoglobin A1c - CBC auto differential - Comprehensive metabolic panel - Lipid panel - Magnesium 4. Current smoker discussed stop smoking. Patient is aware of the deleterious effects of smoking CT lung screening ordered - CT lung screening low dose current treatment plan is effective, no change in therapy, orders and follow up as documented in EMR, lab results reviewed with patient, repeat labs ordered prior to next appointment, reviewed compliance with lifestyle measures, reviewed diet, exercise and weight control, reviewed medications and side effects in detail Return visit in 3 months. Subjective HPI this is a 59-year-old female patient with multiple medical problems main issue is her diabetes she admits she is not checking her blood sugars. I advised patient the importance of getting this done as well as seeing the eye doctor yearly she has not had any hypoglycemic episodes she has been taking her fark [employer]IG[employer] or her Amaryl her Tradjenta and her metformin. She and I discussed diet and exercise. She been going through a lot of stress right now. With her significant other. As well as how she is staying in. She feels the Paxil is working for her and it is of benefit still being on it Review of Systems Constitutional: Negative. Negative for activity change, appetite change and fever. HENT: Negative. Negative for congestion. Eyes: Negative. Negative for discharge. Respiratory: Negative. Negative for chest tightness. Cardiovascular: Negative. Gastrointestinal: Negative. Endocrine: Negative. Negative for cold intolerance. Genitourinary: Negative for difficulty urinating. Musculoskeletal: Negative. Neurological: Negative. Negative for dizziness, facial asymmetry and headaches. Hematological: Negative. Allergies Allergen Reactions Nsaids Anaphylaxis, Hives and Itching Pt gets hives and itching from taking any NSAIDS Sulfa Antibiotics Diarrhea Other reaction(s): GI Upset Sulfamethoxazole-Trimeth oprim Diarrhea and Nausea And Vomiting Outpatient Medications Prior to Visit Medication Sig Dispense Refill amLODIPine (Norvasc) 10 MG tablet Take 1 tablet (10 mg) by mouth daily. 90 tablet 1 atorvastatin (Lipitor) 40 MG tablet TAKE TWO BY MOUTH EVERY OTHER DAY ALTERNATING WITH ONE EVERY OTHER DAY 135 tablet 0 cholecalciferol (Vitamin D-3) 25 MCG (1000 UT) tablet Take 1,000 Units by mouth daily. clonazePAM (KlonoPIN) 0.5 MG tablet Take 0.5 mg by mouth in the morning and 0.5 mg in the evening. colesevelam (Welchol) 625 MG tablet Take 1,250 mg by mouth 2 times daily. dapagliflozin (Farxiga) 10 MG tablet TAKE ONE TABLET (10 MG) BY MOUTH DAILY (WITH BREAKFAST). 90 tablet 0 glimepiride (Amaryl) 4 MG tablet TAKE ONE BY MOUTH TWICE DAILY WITH MEALS 180 tablet 1 irbesartan (Avapro) 150 MG tablet Take 1 tablet (150 mg) by mouth daily. 90 tablet 1 linaGLIPtin (Tradjenta) 5 MG tablet Take 1 tablet (5 mg) by mouth daily. 90 tablet 1 metFORMIN (Glucophage) 1000 MG tablet Take 1 tablet (1,000 mg) by mouth in the morning and 1 tablet (1,000 mg) in the evening. Take with meals. 180 tablet 1 mirtazapine (Remeron) 30 MG tablet Take 45 mg by mouth. PARoxetine (Paxil) 20 MG tablet Take 20 mg by mouth 2 times daily. magnesium oxide (Mag-Ox) 400 MG tablet Take 400 mg by mouth in the morning and 400 mg in the evening. No facility-administered medications prior to visit. Patient Active Problem List Diagnosis Hypoxia Personal history of noncompliance with medical treatment, presenting hazards to health Severe obesity (BMI 35.0-39.9) with comorbidity (HCC) Malaise and fatigue Type 2 diabetes mellitus without complication, without long-term current use of (more content not included)... [facility] 36on 04-19-2024 36 Recent Visits Date Type Provider Dept 01/25/24 Office Visit Lena Varner MD [facility] 10/18/23 Office Visit Lena Varner MD [facility] 07/12/23 Office Visit Hari Casanova PA-C [facility] Showing recent visits within past 365 days and meeting all other requirements Future Appointments Date Type Provider Dept 05/08/24 Appointment Lena Varner MD [facility] Showing future appointments within next 90 days and meeting all other requirements Requested Prescriptions Pending Prescriptions Disp Refills glimepiride (Amaryl) 4 MG tablet [Pharmacy Med Name: Glimepiride Oral Tablet 4 MG 4 MG Tablet] 180 tablet 1 Sig: TAKE ONE BY MOUTH TWICE DAILY WITH MEALS Provider: Lena Varner MD Verified pharmacy: yes Verified day(s) supplied: yes Verified refill(s) needed (previous prescription showing no refills in chart): Yes Have you received any controlled medications from any other provider? N/A Overdue for visit: No If yes - patient scheduled? N/A Most recent labs completed in chart? Yes Diabetes: Lab Results Component Value Date HGBA1C 7.8 (H) 01/25/2024 MICROALBCREA 18.2 04/12/2023 BUNCREATININ SEE NOTE: 01/25/2024 K 3.2 (L) 07/24/2023 NA 138 07/24/2023 LDL 125 (A) 05/04/2022 HDL 42 04/12/2023 CHOLESTEROLT 149 01/25/2024 TRIG 184 (H) 04/12/2023 Normal [facility] Bacteria Ur Culton 4 Bacteria identified Cx Nom (U) CULTURE, URINE: Mixed microbiota, including predominantly: ORGANISM ID: 1 >=100,000 CFU/ml Escherichia coli ORGANISM ID: 1 (ESCHERICHIA COLI) ANTIBIOTIC INTERPRETATION FRANSISCA STATUS REFERENCE RANGE Ampicillin S <=2 F Susceptible <=8 , Intermediate >8 , Resistant >16 Cefazolin S <=4 F Susceptible 0-16 , Intermediate <0 or >16 , Resistant >16 For uncomplicated urinary tract infections, cefazolin results can be used to predict susceptibility or resistance to cephalexin. Ceftriaxone S <=1 F Susceptible <=1 , Intermediate >1 , Resistant >=4 Cefepime S <=1 F Susceptible <=2 , Susceptible-Dose Dependent >2 , Resistant >=16 Ertapenem S <=0.5 F Susceptible <=0.5 , Intermediate >.5 , Resistant >1 Meropenem S <=0.25 F Susceptible <=1 , Intermediate >1 , Resistant >2 Ampicillin/Sulbact S <=2 F Susceptible <=8 , Intermediate >8 , Resistant >16 Piperacillin/Tazobac S <=4 F Susceptible <16 , Susceptible-Dose Dependent >=16 , Resistant >=32 Gentamicin S <=1 F Susceptible <=2 , Intermediate >2 , Resistant >=8 Tobramycin S <=1 F Susceptible <4 , Intermediate >=4 , Resistant >=8 Trimeth sulfameth S <=20 F Susceptible <=40 , Resistant >40 Ciprofloxacin S <=0.25 F Susceptible <0.5 , Intermediate >=.5 , Resistant >=1 Nitrofurantoin S <=16 F Susceptible <=32 , Intermediate >32 , Resistant >[address] [facility] Comment on above: Performed By: #### 6 #### [facility] CLIA [id number] [address] [place] [address] [place] CNOVon 03-13-2024 CNOV Office Visit ([place] ) -------- THEA [id number]) 1965 F Date Time Provider Department 03/13/24 12:05 PM ANALI PICKARD During your visit today, we recorded the following information about you: Temperature Pulse Respiration Blood pressure 98.1 degrees 92/minute 18/minute 126/70 Weight Height 99.3 kg 1.651 m Anali Pickard PA-C 03/13/2024 12:50 PM Signed Subjective Thea Dorman is a 59 year old female with a past medical history of hypertension, GERD, diabetes, Graves' disease, and depression who [facility] for evaluation of dysuria, urinary frequency, and urinary urgency that began this morning. No fevers, sweats, chills, nausea, vomiting, abdominal pain, or flank pain. Review of Systems Constitutional: Negative for chills, diaphoresis and fever. Gastrointestinal: Negative for abdominal pain, constipation, diarrhea, nausea and vomiting. Genitourinary: Positive for dysuria, frequency and urgency. Negative for difficulty urinating and flank pain. Skin: Negative for rash and wound. All other systems reviewed and are negative. Objective BP 126/70 (BP Site: Left Arm, BP Position: Sitting, BP Cuff Size: Regular Adult) Pulse 92 Temp 36.7 ?C (98.1 ?F) (Right Tympanic) Resp 18 Ht 165.1 cm (5' 5) Wt 99.3 kg (219 lb 0.4 oz) SpO2 94% BMI 36.45 kg/m? Physical Exam Vitals reviewed. Constitutional: General: She is not in acute distress. Appearance: Normal appearance. She is normal weight. She is not ill-appearing or toxic-appearing. Comments: The patient appears to be non-toxic, in no acute distress, and resting comfortably on the table. HENT: Head: Normocephalic and atraumatic. Eyes: Extraocular Movements: Extraocular movements intact. Cardiovascular: Rate and Rhythm: Normal rate and regular rhythm. Heart sounds: Normal heart sounds. No murmur heard. No friction rub. No gallop. Pulmonary: Effort: Pulmonary effort is normal. No respiratory distress. Breath sounds: Normal breath sounds. No wheezing. Abdominal: Tenderness: There is no right CVA tenderness or left CVA tenderness. Musculoskeletal: General: Normal range of motion. Cervical back: Normal range of motion. Skin: General: Skin is warm and dry. Findings: No erythema or rash. Neurological: General: No focal deficit present. Mental Status: She is alert and oriented to person, place, and time. Mental status is at baseline. Psychiatric: Mood and Affect: Mood normal. Behavior: Behavior normal. Thought Content: Thought content normal. Assessment and Plan UA consistent with urinary tract infection. Urine culture obtained. Results discussed with patient. Patient counseled regarding suspected diagnosis and given prescription for Cipro. Advised to follow-up with primary care as needed for any new or worsening symptoms. ASSESSMENT/PLAN: 1. Leukocytes in urine - ICD9: 791.7, ICD10: R82.998 (primary diagnosis) - URINE CULTURE - CIPROFLOXACIN 500 MG TABLET 2. Urinary urgency - ICD9: 788.63, ICD10: R39.15 - URINE CULTURE - UA DIP, URINE (POC) 3. Sensation of pressure in bladder area - ICD9: 596.89, ICD10: R39.89 - URINE CULTURE - UA DIP, URINE (POC) 4. Dysuria - ICD9: 788.1, ICD10: R30.0 - URINE CULTURE - UA DIP, URINE (POC) Medical Decision Making: Problems: Low: Acute, uncomplicated illness or injury Risk: Minimal: Minimal risk from testing/treatment Moderate: Drug management Medical Decision Making Level: 3 - Low I spent a total of 20 minutes on the date of the service which included preparing to see the patient, [id number] patient care, completing clinical documentation, performing a medically appropriate examination, counseling and educating the patient/family/caregiver , and ordering medications, tests, or procedures. BRANDY Light Ariana P, PA-C 03/13/2024 12:20 PM Addendum [facility] PATIENT INFO BLADDER INFECTION OVERVIEW Bladder infections are one of the most common infections, causing symptoms of burning with urination and needing to urinate frequently. A bladder infection is a type of urinary tract infection (UTI). Bladder infections are more common is women than men. Most women have an uncomplicated bladder infection that is easily treated with a short course of antibiotics. In men, bladder infections may also affect the prostate gland, and a longer course of treatment may be needed. BLADDER INFECTION CAUSES The urinary tract includes the kidneys (which filter urine), ureters (the tube that carries urine from the kidneys to the bladder), the bladder (which stores urine), and urethra (the tube that carries urine out of the bladder). Bacteria do not normally live in these areas. However, bacteria normally live close to the urethra in women and men who are not circumcised. Bladder infections occur when (more content not included)... Normal [facility] UA DIP, URINE (POC)on 2023 BILIRUBIN UA (POCT) Negative Negative [facility] CLARITY UA (POCT) Slightly Cloudy Cl [facility] COLOR UA (POCT) Madelaine [facility] GLUCOSE UA (POCT) >=1000 Abnormal Negative mg/dL [facility] Hemoglobin Ql (U) Large Abnormal Negative [facility] Interpretation and review of laboratory results Abnormal [facility] KETONE UA (POCT) Trace Negative mg/dL [facility] LEUKOCYTES UA (POCT) Small Abnormal Negative [facility] NITRITE UA (POCT) Positive [facility]normal Negative [facility] PH UA (POCT) 5.5 4.5 - 8.0 [facility] Protein Ql (U) 100 mg/dL Abnormal Negative [facility] SPECIFIC GRAVITY UA (POCT) 1.020 1.005 - 1.030 [facility] UROBILINOGEN UA (POCT) 0.2 Normal E.U./dL [facility] Location:[facility], [address] [place] [address], [address] [place] [address] POINT OF CARE [facility] 36on 03-06-2024 36 Last OV:01/25/24 Scheduled:05/08/24 [facility] 36 Ordering provider: Melany Varner Date of last office visit: 01/25/24 Date of next office visit: 05/08/24 Updated/Validated preferred pharmacy: Yes [facility] Patient instructed to contact the pharmacy prior to picking up the medication: N/A (1) Medication name: metFORMIN (Glucophage) Medication dosage: 1,000 mg (Miligrams Monthly quantity needed: 60 How many day supply requestin days Medication route: oral (PO) Medication administration time(s): Take 1 tablet (1,000 mg) by mouth in the morning and 1 tablet (1,000 mg) in the evening. Take with meals. If taking medication PRN, reason for taking medication: N/A If this is a controlled substance do you receive this or any other controlled medication from any other doctor or facility: No Date of last refill (see medication tab): 08/17/23 (2) Medication name: linaGLIPtin (Tradjenta) Medication dosage: 5 mg (Miligrams Monthly quantity needed: 30 How many day supply requestin days Medication route: oral (PO) Medication administration time(s): daily If taking medication PRN, reason for taking medication: N/A If this is a controlled substance do you receive this or any other controlled medication from any other doctor or facility: No Date of last refill (see medication tab): 07/12/[address] 03-02-2024 36 Pt notified [address] 03-01-2024 36 Recommend rechecking in April she ready has a follow-up appointment with me already scheduled. [facility] 36 Message released to patient as written. Patient's further questions if applicable: Were all questions from office addressed or relayed to the patient from encounter: Yes. I released the message to the patient. She said she will think about the Januvia - she will let you know on mychart. Patient said she has not had a cold or a cough. Please advise [facility] 36 LM - called to relay results. [address] 02-29-2024 36 Do you know if patie nt received this message? If yes ok to close encounter if notplease call and let her know thanks [address] 02-28-2024 36 Patient called bryan diaz the pharm did not receive the new scripts. Please resend to pharm [facility] CBC panel Auto (Bld)Ordered By: Marimar Alvarado on 07-24-2023 Erythrocyte distribution width (RBC) [Ratio] 19.7 % High 11.5 - 14.5 % [facility] Hematocrit (Bld) [Volume fraction] 40.4 % 35.0 - 47.0 % [facility] Hemoglobin (Bld) [Mass/Vol] 13.0 g/dL 11.7 - 16.0 g/dL [facility] Interpretation and review of laboratory results Abnormal [facility] MCH (RBC) [Entitic mass] 25.2 pg Low 26.0 - 34.0 pg [facility] MCHC (RBC) [Mass/Vol] 32.1 % 32.0 - 36.0 % [facility] MCV (RBC) [Entitic vol] 78.7 fL Low 80.0 - 98.0 fL [facility] Platelet mean volume (Bld) [Entitic vol] 7.9 fL 7.4 - 12.4 fL [facility] Platelets (Bld) [#/Vol] 361 10*3/uL 140 - 440 10*3/uL [facility] RBC (Bld) [#/Vol] 5.13 10*6/uL 3.8 - 5.20 10*6/uL [facility] WBC (Bld) [#/Vol] 14.8 10*3/uL High 3.6 - 10.7 10*3/uL [facility] CT Abdomen and Pelvis W cont rast Surinder 07-24-2023 No acute abnormality within the abdomen/pelvis. Small sliding hiatal hernia. Chronic minimal left-sided hydronephrosis. Report Dictated on Electronically Signed By: Skylar Orellana MD Electronically Signed Date/Time: 07/24/2023 4:21 PM [facility] Patient Name: THEA DORMAN : 1965 Exam Date/Time: 07/24/2023 15:33 Procedure: CT ABDOMEN PELVIS W CONTRAST Ordering Provider: ESTRADA DANIEL Reason For Exam: Abdominal pain, acute, nonlocalized CT ABDOMEN AND PELVIS WITH CONTRAST EXAM DATE AND TIME: 07/24/2023 3:33 PM EST INDICATION: 58 years Female with Abdominal pain, acute, nonlocalized COMPARISON: CT abdomen pelvis from 02/11/2016 TECHNIQUE: Transaxial sequence through the abdomen and pelvis with 3 mm reconstruction with dynamic intravenous infusion of intravenous contrast media. Coronal and sagittal reconstructions included. Dose reduction was employed with automated exposure control. Dose reduction was employed with automated exposure control. FINDINGS: Chest base: Mild subpleural scarring or atelectasis in the right lower lobe. Adjacent chronic right rib fracture. Small sliding hiatal hernia, containing the proximal stomach. Liver: Normal size and contour. No focal lesion. Biliary tree: Apparent cholecystectomy. No significant biliary ductal dilatation.. Pancreas: Normal. Spleen: Normal. Adrenals: Normal. Kidneys: Chronic minimal left-sided hydronephrosis. No obstructing calculus. Minimal renal cortical scarring. No focal lesion. Free fluid: None. Vasculature: Atherosclerotic calcifications are seen in the aorta and its branches. The aorta is normal in caliber. Bowel: Small sliding hiatal hernia, containing the proximal stomach. Normal appendix. No bowel obstruction. No bowel wall pneumatosis.. Lymphadenopathy: None. Pelvic organs/viscera: No mass identified. Status post hysterectomy. Osseous structures: Degenerative change of the spine. Chronic right rib fracture.. Soft Tissues: Normal. [facility] Skylar Orellana M D - 07/24/2023 Patient Name: THEA DORMAN : 1965 Exam Date/Time: 07/24/2023 15:33 Procedure: CT ABDOMEN PELVIS W CONTRAST Ordering Provider: ESTRADA DANIEL Reason For Exam: Abdominal pain, acute, nonlocalized CT ABDOMEN AND PELVIS WITH CONTRAST EXAM DATE AND TIME: 07/24/2023 3:33 PM EST INDICATION: 58 years Female with Abdominal pain, acute, nonlocalized COMPARISON: CT abdomen pelvis from 02/11/2016 TECHNIQUE: Transaxial sequence through the abdomen and pelvis with 3 mm reconstruction with dynamic intravenous infusion of intravenous contrast media. Coronal and sagittal reconstructions included. Dose reduction was employed with automated exposure control. Dose reduction was employed with automated exposure control. FINDINGS: Chest base: Mild subpleural scarring or atelectasis in the right lower lobe. Adjacent chronic right rib fracture. Small sliding hiatal hernia, containing the proximal stomach. Liver: Normal size and contour. No focal lesion. Biliary tree: Apparent cholecystectomy. No significant biliary ductal dilatation.. Pancreas: Normal. Spleen: Normal. Adrenals: Normal. Kidneys: Chronic minimal left-sided hydronephrosis. No obstructing calculus. Minimal renal cortical scarring. No focal lesion. Free fluid: None. Vasculature: Atherosclerotic calcifications are seen in the aorta and its branches. The aorta is normal in caliber. Bowel: Small sliding hiatal hernia, containing the proximal stomach. Normal appendix. No bowel obstruction. No bowel wall pneumatosis.. Lymphadenopathy: None. Pelvic organs/viscera: No mass identified. Status post hysterectomy. Osseous structures: Degenerative change of the spine. Chronic right rib fracture.. Soft Tissues: Normal. IMPRESSION: No acute abnormality within the abdomen/pelvis. Small sliding hiatal hernia. Chronic minimal left-sided hydronephrosis. Report Dictated on Electronically Signed By: Skylar Orellana MD Electronically Signed Date/Time: 07/24/2023 4:21 PM EST [facility] Radiology Study observation (narrative) [facility] CT Abdomen and Pelvis W cont rast IVOrdered By: Skylar Orellana on 07-24-2023 [facility] Work Phone: Comprehensive metabolic 1998 panelon 07-24-2023 Albumin [Mass/Vol] 4.2 g/dL 3.5 - 5.0 g/dL [facility] ALP [Catalytic activity/Vol] 128 U/L High 38 - 126 U/L [facility] ALT [Catalytic activity/Vol] 16 U/L 0 - 34 U/L [facility] Anion gap [Moles/Vol] 9 mmol/L 3 - 13 mmol/L [facility] AST [Catalytic activity/Vol] 20 U/L 15 - 46 U/L [facility] Bilirubin [Mass/Vol] 0.3 mg/dL 0.2 - 1 .3 mg/dL [facility] Calcium [Mass/Vol] 9.5 mg/dL 8.4 - 10. 4 mg/dL [facility] Chloride [Moles/Vol] 106 mmol/L 98 - 10 7 mmol/L [facility] CO2 [Moles/Vol] 24 mmol/L 22 - 30 mmol/L [facility] Creatinine [Mass/Vol] 0.49 mg/dL Low 0.52 - 1.04 mg/dL [facility] GFR/1.73 sq M.predicted MDRD (S/P/Bld) [Vol rate/Area] - PINF [facility] Comment on above: Calculation based on the Chronic Kidney Disease Epidemiology Collaboration (CKD-EPI) equation refit without adjustment for race Glucose [Mass/Vol] 140 mg/dL High 70 - 100 mg/dL [facility] Interpretation and review of laboratory results Abnormal [facility] Potassium [Moles/Vol] 3.2 mmol/L Low 3.5 - 5.1 mmol/L [facility] Protein [Mass/Vol] 7.4 g/dL 6.3 - 8.2 g/dL [facility] Sodium [Moles/Vol] 138 mmol/L 135 - 145 mmol/L [facility] Urea nitrogen [Mass/Vol] 15 mg/dL 7 - 17 mg/dL [facility] Laboratory - Chemistry and C hemistry - challengeon 07-24-2023 Troponin I.cardiac [Mass/Vol] ng/mL NINF - 0.034 ng/mL [facility] Lipase [Catalytic activity/Vol] 83 U/L 23 - 300 U/L [facility] Magnesium [Mass/Vol] 1.6 mg/dL 1.6 - 2 .3 mg/dL [facility] No Panel Informationon 07-24 Interpretation and review of laboratory results Normal [facility] Troponin I.cardiac [Mass/Vol ]on 07-24-2023 Interpretation and review of laboratory results Normal [facility] Patients with high levels of Biotin oral intake (ie >5 mg/day) may have falsely decreased Troponin levels. [facility] UA DIP, URINE (POC)on 2022 BILIRUBIN UA (POCT) Moderate Abnormal Negative [facility] CLARITY UA (POCT) Slightly Cloudy Cl [facility] COLOR UA (POCT) [place] [facility] GLUCOSE UA (POCT) Negative Negative mg/dL [facility] Hemoglobin Ql (U) Moderate Abnormal Negative [facility] KETONE UA (POCT) 15 mg/dL Abnormal Negative mg/dL [facility] LEUKOCYTES UA (POCT) Large Abnormal Negative [facility] NITRITE UA (POCT) Positive Abnormal Negative [facility] PH UA (POCT) 5.0 4.5 - 8.0 [facility] Protein Ql (U) >=300 Abnormal Negative mg/dL [facility] SPECIFIC GRAVITY UA (POCT) <=1.005 Abnormal 1.005 - 1.030 [facility] UROBILINOGEN UA (POCT) >=8.0 Abnormal Normal E.U./dL [facility] CBC W Auto Differential pane l (Bld)Ordered By: Aria Angeles on 06-21-2023 Basophils (Bld) [#/Vol] 0.0 10*3/uL 0.0 - 0.2 10*3/uL [facility] Basophils/100 WBC (Bld) 0.5 % 0.0 - 2.0 % [facility] Eosinophils (Bld) [#/Vol] 0.1 10*3/uL 0.0 - 0.5 10*3/uL [facility] Eosinophils/100 WBC (Bld) 1.4 % 1.0 - 6.0 % [facility] Erythrocyte distribution width (RBC) [Ratio] 17.2 % High 11.5 - 14.5 % [facility] Hematocrit (Bld) [Volume fraction] 40.0 % 35.0 - 47.0 % [facility] Hemoglobin (Bld) [Mass/Vol] 12.2 g/dL 11.7 - 16.0 g/dL [facility] Immature granulocytes (Bld) [#/Vol] 0.1 10*3/uL High NINF - 0.0 10*3/uL [facility] Immature granulocytes/100 WBC (Bld) 0.6 % High NINF - 0.0 % [facility] Interpretation and review of laboratory results Abnormal [facility] Lymphocytes (Bld) [#/Vol] 0.6 10*3/uL Low 1.0 - 4.3 10*3/uL [facility] Lymphocytes/100 WBC (Bld) 6.6 % Low 20.0 - 40.0 % [facility] MCH (RBC) [Entitic mass] 24.1 pg Low 26.0 - 34.0 pg [facility] MCHC (RBC) [Mass/Vol] 30.5 % Low 32.0 - 36.0 % [facility] MCV (RBC) [Entitic vol] 78.9 fL Low 80.0 - 98.0 fL [facility] Monocytes (Bld) [#/Vol] 0.8 10*3/uL 0.0 - 0.8 10*3/uL [facility] Monocytes/100 WBC (Bld) 9.3 % 2.0 - 10.0 % [facility] Neutrophils (Bld) [#/Vol] 7.2 10*3/uL High 1.8 - 7.0 10*3/uL [facility] Neutrophils/100 WBC (Bld) 81.6 % High 40.0 - 80.0 % [facility] Platelet mean volume (Bld) [Entitic vol] 10.0 fL 7.4 - 12.4 fL [facility] Comment on above: MPV is a calculated measurement using platelet volume ratio Platelets (Bld) [#/Vol] 355 10*3/uL 140 - 440 10*3/uL [facility] RBC (Bld) [#/Vol] 5.07 10*6/uL 3.8 - 5.20 10*6/uL [facility] WBC (Bld) [#/Vol] 8.8 10*3/uL 3.6 - 10.7 10*3/uL [facility] Comprehensive metabolic 1998 panelon 06-21-2023 Albumin [Mass/Vol] 4.4 g/dL 3.5 - 5.0 g/dL [facility] ALP [Catalytic activity/Vol] 92 U/L 38 - 126 U/L [facility] ALT [Catalytic activity/Vol] 21 U/L 0 - 34 U/L [facility] Anion gap [Moles/Vol] 13 mmol/L 3 - 13 mmol/L [facility] AST [Catalytic activity/Vol] 26 U/L 15 - 46 U/L [facility] Bilirubin [Mass/Vol] 0.4 mg/dL 0.2 - 1 .3 mg/dL [facility] Calcium [Mass/Vol] 9.6 mg/dL 8.4 - 10. 4 mg/dL [facility] Chloride [Moles/Vol] 104 mmol/L 98 - 10 7 mmol/L [facility] CO2 [Moles/Vol] 22 mmol/L 22 - 30 mmol/L [facility] Creatinine [Mass/Vol] 0.84 mg/dL 0.52 - 1.04 mg/dL [facility] GFR/1.73 sq M.predicted MDRD (S/P/Bld) [Vol rate/Area] 80.7 mL/min/{1.73_m2} - PINF [facility] Comment on above: Calculation based on the Chronic Kidney Disease Epidemiology Collaboration (CKD-EPI) equation refit without adjustment for race Glucose [Mass/Vol] 142 mg/dL High 70 - 100 mg/dL [facility] Interpretation and review of laboratory results Abnormal [facility] Potassium [Moles/Vol] 3.5 mmol/L 3.5 - 5.1 mmol/L [facility] Protein [Mass/Vol] 7.5 g/dL 6.3 - 8.2 g/dL [facility] Sodium [Moles/Vol] 139 mmol/L 135 - 145 mmol/L [facility] Urea nitrogen [Mass/Vol] 8 mg/dL 7 - 17 mg/dL [facility] Lipaseon 06-21-2023 Lipase [Catalytic activity/Vol] 57 U/L 23 - 300 U/L [facility] Lipase [Catalytic activity/V ol]on 06-21-2023 Interpretation and review of laboratory results Normal [facility] No Panel Informationon 06-21 [facility] CBC panel Auto (Bld)Ordered By: Cheyenne Arana on 04-12-2023 Erythrocyte distribution width (RBC) [Ratio] 16.2 % High 11.5 - 14.5 % [facility] Hematocrit (Bld) [Volume fraction] 39.1 % 35.0 - 47.0 % [facility] Hemoglobin (Bld) [Mass/Vol] 12.2 g/dL 11.7 - 16.0 g/dL [facility] Interpretation and review of laboratory results Abnormal [facility] MCH (RBC) [Entitic mass] 24.7 pg Low 26.0 - 34.0 pg [facility] MCHC (RBC) [Mass/Vol] 31.2 % Low 32.0 - 36.0 % [facility] MCV (RBC) [Entitic vol] 79.1 fL Low 80.0 - 98.0 fL [facility] Platelet mean volume (Bld) [Entitic vol] 9.3 fL 7.4 - 12.4 fL [facility] Comment on above: MPV is a calculated measurement using platelet volume ratio Platelets (Bld) [#/Vol] 427 10*3/uL 140 - 440 10*3/uL [facility] RBC (Bld) [#/Vol] 4.94 10*6/uL 3.8 - 5.20 10*6/uL [facility] WBC (Bld) [#/Vol] 10.3 10*3/uL 3.6 - 10.7 10*3/uL [facility] Comprehensive metabolic 1998 panelon 04-12-2023 Albumin [Mass/Vol] 4.3 g/dL 3.5 - 5.0 g/dL [facility] ALP [Catalytic activity/Vol] 104 U/L 38 - 126 U/L [facility] ALT [Catalytic activity/Vol] 17 U/L 0 - 34 U/L [facility] Anion gap [Moles/Vol] 7 mmol/L 3 - 13 mmol/L [facility] AST [Catalytic activity/Vol] 59 U/L High 15 - 46 U/L [facility] Bilirubin [Mass/Vol] 0.3 mg/dL 0.2 - 1 .3 mg/dL [facility] Calcium [Mass/Vol] 8.8 mg/dL 8.4 - 10. 4 mg/dL [facility] Chloride [Moles/Vol] 104 mmol/L 98 - 10 7 mmol/L [facility] CO2 [Moles/Vol] 25 mmol/L 22 - 30 mmol/L [facility] Creatinine [Mass/Vol] 0.55 mg/dL 0.52 - 1.04 mg/dL [facility] GFR/1.73 sq M.predicted MDRD (S/P/Bld) [Vol rate/Area] - PINF [facility] Comment on above: Calculation based on the Chronic Kidney Disease Epidemiology Collaboration (CKD-EPI) equation refit without adjustment for race Glucose [Mass/Vol] 111 mg/dL High 70 - 100 mg/dL [facility] Potassium [Moles/Vol] 3.9 mmol/L 3.5 - 5.1 mmol/L [facility] Protein [Mass/Vol] 7.3 g/dL 6.3 - 8.2 g/dL [facility] Sodium [Moles/Vol] 137 mmol/L 135 - 145 mmol/L [facility] Urea nitrogen [Mass/Vol] 12 mg/dL 7 - 17 mg/dL [facility] Lipid 1996 panelon 3 Cholesterol [Mass/Vol] 202 mg/dL High NINF - 200 mg/dL [facility] Cholesterol in HDL [Mass/Vol] 42 mg/dL 40 - 60 mg/dL [facility] Cholesterol in LDL [Mass/Vol] 123 mg/dL High 0 - <100 [facility] Cholesterol.total/Cho lesterol in HDL [Mass ratio] 5 {ratio} [facility] Comment on above: Ref Range: < 3 Low Risk for CHD 3-6 Mod Risk for CHD > 6 High Risk for CHD Triglyceride [Mass/Vol] 184 mg/dL High NINF - 150 mg/dL [facility] Microalbumin/Creatinine rati o panel (U)on 04-12-2023 Albumin DL <= 20 mg/L (U) [Mass/Vol] 6.6 mg/L 0.0 - 29.9 mg/L [facility] Albumin/Creatinine DL <= 20 mg/L (U) [Mass ratio] 18.2 mg/g 0.0 - 29.9 mg/g [facility] CREATININE, URINE 36.3 mg/dL No Range [facility] Microalbumin concentrations <30 are considered normal, 30-300 are considered microalbuminuria (or risk of diabetic nephropathy), and >300 are considered clinical albuminuria (clinical nephropathy). Diabetes Care,27, Supplement 1, T44-97, 2004 [facility] No Panel Informationon 04-12 Interpretation and review of laboratory results Abnormal [facility] TSHon 04-12-2023 TSH Qn 0.698 m[IU]/[facility]23 Interpretation and review of laboratory results Normal [facility] XR Chest 2 Viewson No acute cardiopulmo nary abnormality identified. Report Dictated on Electronically Signed By: Ranjana Hammer MD Electronically Signed Date/Time: 04/12/2023 9:40 PM EDT [facility] [place] [employer] Patient Name: THEA DORMAN : 1965 Exam Date/Time: 04/12/2023 12:39 Procedure: XR CHEST 2 VIEWS Ordering Provider: SALINAS CATHERINE Reason For Exam: PNEUMONIA EXAMINATION: XR chest PA and lateral. EXAM DATE & TIME: 04/12/2023 12:39 PM EDT INDICATION: PNEUMONIA ADDITIONAL INFORMATION: 58-year-old female with a provided history of pneumonia presents for evaluation COMPARISON: Chest radiograph dated 12/03/2021 TECHNIQUE: Frontal and lateral views of the chest were obtained. FINDINGS: The cardiomediastinal silhouette is within normal limits. No focal consolidation, pleural effusion or pneumothorax. Chronic blunting of the right costophrenic angle could relate to scarring. No acute osseous abnormality is demonstrated. Degenerative changes of the spine and shoulders are seen. [facility] [place] [employer] Ranjana Hammer MD - 04/12/2023 Patient Name: THEA DORMAN : 1965 Exam Date/Time: 04/12/2023 12:39 Procedure: XR CHEST 2 VIEWS Ordering Provider: SALINAS CATHERINE Reason For Exam: PNEUMONIA EXAMINATION: XR chest PA and lateral. EXAM DATE & TIME: 04/12/2023 12:39 PM EDT INDICATION: PNEUMONIA ADDITIONAL INFORMATION: 58-year-old female with a provided history of pneumonia presents for evaluation COMPARISON: Chest radiograph dated 12/03/2021 TECHNIQUE: Frontal and lateral views of the chest were obtained. FINDINGS: The cardiomediastinal silhouette is within normal limits. No focal consolidation, pleural effusion or pneumothorax. Chronic blunting of the right costophrenic angle could relate to scarring. No acute osseous abnormality is demonstrated. Degenerative changes of the spine and shoulders are seen. IMPRESSION: No acute cardiopulmonary abnormality identified. Report Dictated on Electronically Signed By: Ranjana Hammer MD Electronically Signed Date/Time: 04/12/2023 9:40 PM EDT [facility] Radiology Study observation (narrative) [facility] XR Chest 2 ViewsOrdered By: Ranjana Hammer on 04-12-2023 [facility] [employer] Work Phone: HbA1c (Bld) [Mass fraction]o n 03-24-2023 Interpretation and review of laboratory results Abnormal [facility] Laboratory - Hematology and Cell countson 03-24-2023 HbA1c (Bld) [Mass fraction] 7.5 % Abnormal - 5.7 % [facility] POC HEMOGLOBIN A1Con HbA1c (Bld) [Mass fraction] 8.1 % Abnormal 4.4 - 6.5 % [facility] HbA1c (Bld) [Mass fraction]o n 11-16-2022 Interpretation and review of laboratory results Abnormal [facility] AMB POC HEMOGLOBIN A1Con HbA1c (Bld) [Mass fraction] 10.0 % [facility] [employer] Comp Metabolic Panelon 05-04 ALP [Catalytic activity/Vol] 146 U/L High 38-126 [facility] Comment on above: Performed By: #### T SH5, HEMOG, LIPD2, CMP3 #### [facility] [address] [place] [address] ALT [Catalytic activity/Vol] 16 U/L Normal 0-34 [facility] Comment on above: Result Comment: The ALT test is performed by an updated assay method. Please note that the reference intervals have been changed and are now sex specific. Performed By: #### T SH5, HEMOG, LIPD2, CMP3 #### [facility] [address] [place] [address] Calcium [Mass/Vol] 9.2 mg/dL Normal 8.4-10.4 [facility] Comment on above: Performed By: #### T SH5, HEMOG, LIPD2, CMP3 #### [facility] [address] [place] [address] Glucose [Mass/Vol] 166 mg/dL High 70-100 [facility] Comment on above: Performed By: #### T SH5, HEMOG, LIPD2, CMP3 #### [facility] [address] [place] [address] Anion gap [Moles/Vol] 6 mmol/L Normal 3-13 [facility] Comment on above: Performed By: #### T SH5, HEMOG, LIPD2, CMP3 #### [facility] [address] [place] [address] AST [Catalytic activity/Vol] 26 U/L Normal 15-46 [facility] Comment on above: Performed By: #### T SH5, HEMOG, LIPD2, CMP3 #### [facility] [address] [place] [address] Bilirubin [Mass/Vol] 0.5 mg/dL Normal 0.2-1.3 [facility] Comment on above: Performed By: #### T SH5, HEMOG, LIPD2, CMP3 #### [facility] [address] [place] [address] CO2 [Moles/Vol] 26 mmol/L Normal 22-30 [facility] Comment on above: Performed By: #### T SH5, HEMOG, LIPD2, CMP3 #### [facility] [address] [place] [address] Creatinine [Mass/Vol] 0.62 mg/dL Normal 0.52-1.25 [facility] Comment on above: Performed By: #### T SH5, HEMOG, LIPD2, CMP3 #### [facility] [address] [place] [address] eGFR OTHER > 90.0 Normal >60 [facility] Comment on above: Result Comment: KDIG O guidelines provide the following GFR categories: Stage GFR(ml/min/1.73 m2) Terms G1 >=90 Normal or high G2 60-89 Mildly decreased* G3a 45-59 Mildly to moderately decreased G3b 30-44 Moderately to severely decreased G4 15-29 Severely decreased G5 <15 Kidney failure *Relative to young adult level. In the absence of evidence of kidney damage, neither GFR category G1 nor G2 fulfill the criteria for CKD. The CKD-EPI equation is validated in individuals 18 years of age and older. Currently the best equation for estimating glomerular filtration rate (GFR) from serum creatinine in children is the Bedside Valdes equation. It is less accurate in patients with extremes of muscle mass, restriction of dietary protein, ingestion of creatine, extra-renal metabolism of creatinine, or treatment with medications that affect renal tubular creatinine secretion. Performed By: #### T SH5, HEMOG, LIPD2, CMP3 #### [facility] [address] [place] [address] GFR/1.73 sq M.predicted among blacks MDRD (S/P/Bld) [Vol rate/Area] mL/min/{1.73_m2} Normal >60 [facility] Comment on above: Performed By: #### T SH5, HEMOG, LIPD2, CMP3 #### [facility] [address] [place] [address] Protein [Mass/Vol] 7.2 g/dL Normal 6.3-8.2 [facility] Comment on above: Performed By: #### T SH5, HEMOG, LIPD2, CMP3 #### [facility] [address] [place] [address] Urea nitrogen [Mass/Vol] 12 mg/dL Normal 9-20 [facility] Comment on above: Performed By: #### T SH5, HEMOG, LIPD2, CMP3 #### [facility] [address] [place] [address] Potassium [Moles/Vol] 3.9 mmol/L Normal 3.5-5.1 [facility] Comment on above: Performed By: #### T SH5, HEMOG, LIPD2, CMP3 #### [facility] [address] [place] [address] Sodium [Moles/Vol] 137 mmol/L Normal 135-145 [facility] Comment on above: Performed By: #### T SH5, HEMOG, LIPD2, CMP3 #### [facility] [address] [place] [address] Albumin [Mass/Vol] 4.3 g/dL Normal 3.5-5.0 [facility] Comment on above: Performed By: #### T SH5, HEMOG, LIPD2, CMP3 #### [facility] [address] [place] [address] Chloride [Moles/Vol] 105 mmol/L Normal 98-107 [facility] Comment on above: Performed By: #### T SH5, HEMOG, LIPD2, CMP3 #### [facility] [address] [place] [address] Hemogramon 05-04-2022 Erythrocyte distribution width (RBC) [Ratio] 15.9 % High 11.5-14.5 [facility] Comment on above: Performed By: #### T SH5, HEMOG, LIPD2, CMP3 #### [facility] [address] [place] [address] Hematocrit (Bld) [Volume fraction] 40.9 % Normal 35.0-47.0 [facility] Comment on above: Performed By: #### T SH5, HEMOG, LIPD2, CMP3 #### [facility] [address] [place] [address] Hemoglobin (Bld) [Mass/Vol] 13.0 g/dL Normal 11.7-16.0 [facility] Comment on above: Performed By: #### T SH5, HEMOG, LIPD2, CMP3 #### [facility] [address] [place] [address] MCH (RBC) [Entitic mass] 25.1 pg Low 26.0-34.0 [facility] Comment on above: Performed By: #### T SH5, HEMOG, LIPD2, CMP3 #### [facility] [address] [place] [address] MCHC 31.8 % Low 32.0-36.0 [facility] Comment on above: Performed By: #### T SH5, HEMOG, LIPD2, CMP3 #### [facility] [address] [place] [address] MCV (RBC) [Entitic vol] 79.0 fL Normal 79.0-98.0 [facility] Comment on above: Performed By: #### T SH5, HEMOG, LIPD2, CMP3 #### [facility] [address] [place] [address] Platelet mean volume (Bld) [Entitic vol] 9.6 fL Normal 7.4-12.4 [facility] Comment on above: Result Comment: MPV is a calculated measurement using platelet volume ratio. Performed By: #### T SH5, HEMOG, LIPD2, CMP3 #### [facility] [address] [place] [address] Platelets (Bld) [#/Vol] 378 10*3/uL Normal 140-440 [facility] Comment on above: Performed By: #### T SH5, HEMOG, LIPD2, CMP3 #### [facility] [address] [place] [address] RBC (Bld) [#/Vol] 5.18 10*6/uL Normal 3.80-5.20 [facility] Comment on above: Performed By: #### T SH5, HEMOG, LIPD2, CMP3 #### [facility] [address] [place] [address] WBC (Bld) [#/Vol] 10.2 10*3/uL Normal 3.6-10.7 [facility] Comment on above: Performed By: #### T SH5, HEMOG, LIPD2, CMP3 #### [facility] [address] [place] [address] Lipid Panelon 05-04-2022 Chol/HDL 4 Normal [facility] Comment on above: Result Comment: Ref Range: < 3 Low Risk for CHD 3-6 Mod Risk for CHD > 6 High Risk for CHD Performed By: #### T SH5, HEMOG, LIPD2, CMP3 #### [facility] [address] [place] [address] Cholesterol in HDL [Mass/Vol] 47 mg/dL Normal 40-60 [facility] Comment on above: Performed By: #### T SH5, HEMOG, LIPD2, CMP3 #### [facility] [address] [place] [address] Low Density Lipoprotein 125 mg/dL Abnormal <100 [facility] Comment on above: Performed By: #### T SH5, HEMOG, LIPD2, CMP3 #### [facility] [address] [place] [address] Triglyceride [Mass/Vol] 141 mg/dL Normal <150 [facility] Comment on above: Performed By: #### T SH5, HEMOG, LIPD2, CMP3 #### [facility] [address] [place] [address] Cholesterol [Mass/Vol] 200 mg/dL Abnormal < 200 [facility] Comment on above: Performed By: #### T SH5, HEMOG, LIPD2, CMP3 #### [facility] [address] [place] [address] Thyroid Stim. Hormoneon 04-16 Thyroid Stim. Hormone < 0.015 Low 0.465-4.680 [facility] Comment on above: Performed By: #### C VFLR #### [facility] [address] [place] [address] , [address] CULTURE URINEon 04-16-2022 CULTURE URINE CULTURE URINE --> Status: F Normal urogenital wilma present. 1 Organism Streptococcus agalactiae (Group B) 10,000-50,000 CFU/ml Susceptibility testing not routinely performed. Group B streptococcus is universally susceptible to beta-lactam antibiotics and vancomycin. If patient is beta-lactam allergic, please call [facility] Microbiology lab ([phone]) within 2 days to request susceptibility testing. If isolated from urine, Group B strep may indicate colonization or infection. Normal [facility] Comment on above: Performed By: #### C /UR #### [facility] [address] [place] [address] #### CUA2 #### [facility] [address] [place] [address] Add On Lab Teston 04-14-2022 Add On Accepted [facility] Comment on above: Specimen available & acceptable for analysis. Test Performed by [facility], [address] , [address] LAB [facility] Add on test from HISon 04-14 Add on test from HIS Accepted Normal [facility] Comment on above: Result Comment: Spec imen available & acceptable for analysis. Performed By: #### A DDON #### [facility] [address] [place] [address] CBC with Auto Differentialon 04-14-2022 Absolute Baso # 0.1 10*3/uL 0 - 0.2 10*3/uL [employer] Work Phone: 1() 22 Absolute Neut # 10.0 10*3/uL High 1.8 - 7 10*3/uL [employer] Work Phone: ) 22 Basophils/100 WBC (Bld) 0.4 % 0 - 2 % [employer] Work Phone: ) 22 Eosinophils (Bld) [#/Vol] 0.2 10*3/uL 0 - 0.5 10*3/uL [employer] Work Phone: 1) 22 Eosinophils/100 WBC (Bld) 1.3 % 1 - 6 % [employer] Work Phone: 1() 22 Granulocytes/100 WBC (Bld) 70.8 % 40 - 80 % [employer] Work Phone: 1) 22 Hematocrit (Bld) [Volume fraction] 40.5 % 35 - 47 % [facility] Work Phone: [phone] Hemoglobin (Bld) [Mass/Vol] 13.0 g/dL 11.7 - 16 g/dL [employer] Work Phone: [phone] Interpretation and review of laboratory results Abnormal [employer] Work Phone: Lymphocytes (Bld) [#/Vol] 2.9 10*3/uL 1 - 4.3 10*3/uL [employer] Work Phone: 1 Lymphocytes/100 WBC (Bld) 20.7 % 20 - 40 % [employer] Work Phone: 1 MCH (RBC) [Entitic mass] 24.6 pg Low 26 - 34 pg [employer] Work Phone: MCHC (RBC) [Mass/Vol] 32.1 % 32 - 36 % [facility] Work Phone: [phone] MCV (RBC) [Entitic vol] 76.6 fL Low 79 - 98 fL [employer] Work Phone: Monocytes (Bld) [#/Vol] 0.9 10*3/uL High 0 - 0.8 10*3/uL [employer] Work Phone: 1 Monocytes/100 WBC (Bld) 6.4 % 2 - 10 % [employer] Work Phone: Platelet distribution width (Bld) [Ratio] 15.6 % High 11.5 - 14.5 % [employer] Work Phone: Platelet mean volume (Bld) [Entitic vol] 9.9 fL 7.4 - 12.4 fL [employer] Work Phone: Comment on above: MPV is a calculated measurement using platelet volume ratio. Platelets (Bld) [#/Vol] 405 10*3/uL 140 - 440 10*3/uL [employer] Work Phone: 1 RBC (Bld) [#/Vol] 5.29 10*6/uL High 3.8 - 5.2 10*6/uL [employer] Work Phone: WBC (Bld) [#/Vol] 14.2 10*3/uL High 3.6 - 10.7 10*3/uL [facility] Work Phone: Test Performed by [facility], [address] , [place], [place] [id number] [place] [address] [facility] Work Phone: COVID-19, Flu A/B, and RSV C omboOrdered By: Jose Mae on 04-14-2022 Influenza A by PCR Not detected [facility] Work Phone: Influenza B by PCR Not detected [facility] Work Phone: RSV PCR Not Detected. Expected Result: Not Detected _ Method: Real-time, RT-PCR This assay was developed by [employer] and distributed under an Emergency Use Authorization (EUA) granted by the FDA for the qualitative detection of nucleic acids from SARS-CoV-2, Influenza A, Influenza B, and Respiratory Syncytial Virus. Provider and patient fact sheets can be found at https://www.fda.gov/medi a/251156/download and https://www.fda.gov/medi a/181301/download. [facility] Work Phone: SARS-CoV-2 (COVID-19) RNA CHRIS+probe Ql (Unsp spec) Not detected [facility] Work Phone: [facility] Work Phone: COVID-19, Flu A/B, and RSV C omboon 04-14-2022 Test Performed by [facility], [address] , [place], [place] [id number] [place] [address] LAB Comp Metabolic Panelon 04-14 ALP [Catalytic activity/Vol] 142 U/L High 38-126 [facility] Comment on above: Performed By: #### C VFLR #### [facility] [address] [place] [address] , [address] ALT [Catalytic activity/Vol] 20 U/L Normal 0-34 [facility] Comment on above: Result Comment: The ALT test is performed by an updated assay method. Please note that the reference intervals have been changed and are now sex specific. Performed By: #### C VFLR #### [facility] [address] [place] [address] , [address] AST [Catalytic activity/Vol] 55 U/L High 15-46 [facility] Comment on above: Performed By: #### C VFLR #### [facility] [address] [place] [address] , [address] Calcium [Mass/Vol] 9.3 mg/dL Normal 8.4-10.4 [facility] Comment on above: Performed By: #### C VFLR #### [facility] [address] [place] [address] , [address] Glucose [Mass/Vol] 135 mg/dL High 70-100 [facility] Comment on above: Performed By: #### C VFLR #### [facility] [address] [place] [address] , [address] Protein [Mass/Vol] 8.1 g/dL Normal 6.3-8.2 [facility] Comment on above: Performed By: #### C VFLR #### [facility] [address] [place] [address] , [address] Urea nitrogen [Mass/Vol] 10 mg/dL Normal 9-20 [facility] Comment on above: Performed By: #### C VFLR #### [facility] [address] [place] [address] , [address] Anion gap [Moles/Vol] 8 mmol/L Normal 3-13 [facility] Comment on above: Performed By: #### C VFLR #### [facility] [address] [place] [address] , [address] Bilirubin [Mass/Vol] 1.1 mg/dL Normal 0.2-1.3 [facility] Comment on above: Performed By: #### C VFLR #### [facility] [address] [place] [address] , [address] CO2 [Moles/Vol] 25 mmol/L Normal 22-30 [facility] Comment on above: Performed By: #### C VFLR #### [facility] [address] [place] [address] , [address] Creatinine [Mass/Vol] 0.54 mg/dL Normal 0.52-1.25 [facility] Comment on above: Performed By: #### C VFLR #### [facility] [address] [place] [address] , [address] eGFR OTHER > 90.0 Normal >60 [facility] Comment on above: Result Comment: KDIG O guidelines provide the following GFR categories: Stage GFR(ml/min/1.73 m2) Terms G1 >=90 Normal or high G2 60-89 Mildly decreased* G3a 45-59 Mildly to moderately decreased G3b 30-44 Moderately to severely decreased G4 15-29 Severely decreased G5 <15 Kidney failure *Relative to young adult level. In the absence of evidence of kidney damage, neither GFR category G1 nor G2 fulfill the criteria for CKD. The CKD-EPI equation is validated in individuals 18 years of age and older. Currently the best equation for estimating glomerular filtration rate (GFR) from serum creatinine in children is the Bedside Valdes equation. It is less accurate in patients with extremes of muscle mass, restriction of dietary protein, ingestion of creatine, extra-renal metabolism of creatinine, or treatment with medications that affect renal tubular creatinine secretion. Performed By: #### C VFLR #### [facility] [address] [place] [address] , [address] GFR/1.73 sq M.predicted among blacks MDRD (S/P/Bld) [Vol rate/Area] mL/min/{1.73_m2} Normal >60 [facility] Comment on above: Performed By: #### C VFLR #### [facility] [address] [place] [address] , [address] Albumin [Mass/Vol] 4.7 g/dL Normal 3.5-5.0 [facility] Comment on above: Performed By: #### C VFLR #### [facility] [address] [place] [address] , [address] Chloride [Moles/Vol] 102 mmol/L Normal 98-107 [facility] Comment on above: Performed By: #### C VFLR #### [facility] [address] [place] [place] [address] , [address] Potassium [Moles/Vol] 5.0 mmol/L Normal 3.5-5.1 [facility] Comment on above: Result Comment: mode rate hemolysis Performed By: #### C VFLR #### [facility] [address] [place] [address] , [address] Sodium [Moles/Vol] 135 mmol/L Normal 135-145 [facility] Comment on above: Performed By: #### C VFLR #### [facility] [address] [place] [address] , [address] Complete Urinalysison 2021 Bacteria Few (1-5) Abnormal Negative [facility] Comment on above: Result Comment: . Performed By: #### C /UR #### [place] [address] [address], [place] #### CUA2 #### [facility] [address] [place] [address] Mucous Threads Few Normal Negative [facility] Comment on above: Result Comment: . Performed By: #### C /UR #### [facility] [address], [place] #### CUA2 #### [facility] [address] [place] [address] RBC, Urine 0 - 2 Normal 0-2 [facility] Comment on above: Result Comment: . Performed By: #### C /UR #### [facility] [address], [place] #### CUA2 #### [facility] [address] [place] [address] Squamous Epithelial 0 - 2 Normal 3-5 [facility] Comment on above: Result Comment: . Performed By: #### C /UR #### [facility] [address], [place] #### CUA2 #### [facility] [address] [place] [address] VOLUME, URINE 12 ml Normal [facility] Comment on above: Result Comment: . Performed By: #### C /UR #### [facility] [address], [place] #### CUA2 #### [facility] [address] [place] [address] WBC, Urine 3 - 5 Normal 0-5 [facility] Comment on above: Result Comment: . Performed By: #### C /UR #### [facility] [address], [place] #### CUA2 #### [facility] [address] [place] [address] White Blood Cell Clump Rare Abnormal Negative [facility] Comment on above: Result Comment: . Performed By: #### C /UR #### [facility] [address], [place] #### CUA2 #### [facility] [address] [place] [address] Appearance (U) Clear Normal Clear [facility] Comment on above: Result Comment: . Performed By: #### C /UR #### [facility] [address], [place] #### CUA2 #### [facility] [address] [place] [address] Bilirubin,Urine Negative Normal Negative [facility] Comment on above: Result Comment: . Performed By: #### C /UR #### [facility] [address], [place] #### CUA2 #### [facility] [address] [place] [address] Color (U) COLORLESS Normal Lt. Yellow [facility] Comment on above: Result Comment: . Performed By: #### C /UR #### [facility] [address], [place] #### CUA2 #### [facility] [address] [place] [address] Glucose Ql (U) > 1,000 Abnormal Normal (<70) [facility] Comment on above: Result Comment: . Performed By: #### C /UR #### [facility] [address], [place] #### CUA2 #### [facility] [address] [place] [address] Ketone,Urine Negative Normal Negative [facility] Comment on above: Result Comment: . Performed By: #### C /UR #### [place] [address], [place] #### CUA2 #### [facility] [address] [place] [address] Leukocytes,Urine 250 Stephenie/uL Abnormal Negative [facility] Comment on above: Result Comment: . Performed By: #### C /UR #### [place] [address], [place] #### CUA2 #### [facility] [address] [place] [address] Nitrites,Urine Negative Normal Negative [facility] Comment on above: Result Comment: . Performed By: #### C /UR #### [facility] [address], [place] #### CUA2 #### [facility] [address] [place] [address] Occult Blood,Urine Negative Normal Negative [facility] Comment on above: Result Comment: . Performed By: #### C /UR #### [place] [address], [place] #### CUA2 #### [facility] [address] [place] [address] pH,Urine 5.5 Normal 5.0-8.0 [facility] Comment on above: Result Comment: . Performed By: #### C /UR #### [facility] [address], [place] #### CUA2 #### [facility] [address] [place] [address] [address],Urine 1.008 Normal 1.005 - 1.030 [facility] Comment on above: Result Comment: . Performed By: #### C /UR #### [place] [address] [place] [address] #### CUA2 #### [facility] [address] [place] [address] Total Protein,Urine Negative Normal Negative [facility] Comment on above: Result Comment: . Performed By: #### C /UR #### [facility] [address] [place] [address] #### CUA2 #### [facility] [address] [place] [address] Urobilinogen,Urine Normal Normal Normal (0-1) [facility] Comment on above: Result Comment: . Performed By: #### C /UR #### [facility] [address] [place] [address] #### CUA2 #### [facility] [address] [place] [address] Comprehensive Metabolic Pane gerber 04-14-2022 Albumin [Mass/Vol] 4.7 g/dL 3.5 - 5 g/dL [facility] Work Phone: [phone] ALP (Bld) [Catalytic activity/Vol] 142 U/L High 38 - 126 U/L [facility] Work Phone: [phone] ALT [Catalytic activity/Vol] 20 U/L 0 - 34 U/L [facility] Work Phone: [phone] Comment on above: The ALT test is perf ormed by an updated assay method. Please note that the reference intervals have been changed and are now sex specific. Anion gap [Moles/Vol] 8 mmol/L 3 - 13 mmol/L [facility] Work Phone: [phone] AST [Catalytic activity/Vol] 55 U/L High 15 - 46 U/L [facility] Work Phone: [phone] Bilirubin [Mass/Vol] 1.1 mg/dL 0.2 - 1 .3 mg/dL [facility] Work Phone: [phone] Calcium [Mass/Vol] 9.3 mg/dL 8.4 - 10. 4 mg/dL [facility] Work Phone: [phone] Chloride [Moles/Vol] 102 mmol/L 98 - 10 7 mmol/L [facility] Work Phone: [phone] CO2 [Moles/Vol] 25 mmol/L 22 - 30 mmol/L [facility] Work Phone: [phone] Creatinine [Mass/Vol] 0.54 mg/dL 0.52 - 1.25 mg/dL [facility] Work Phone: [phone] eGFR mL/min 60 - P INF mL/min [facility] Work Phone: [phone] IF NonAfrican Cymraes mL/min 60 - PINF mL/min [facility] Work Phone: [phone] Comment on above: KDIGO guidelines pro vide the following GFR categories: Stage GFR(ml/min/1.73 m2) Terms G1 >=90 Normal or high G2 60-89 Mildly decreased* G3a 45-59 Mildly to moderately decreased G3b 30-44 Moderately to severely decreased G4 15-29 Severely decreased G5 <15 Kidney failure *Relative to young adult level. In the absence of evidence of kidney damage, neither GFR category G1 nor G2 fulfill the criteria for CKD. The CKD-EPI equation is validated in individuals 18 years of age and older. Currently the best equation for estimating glomerular filtration rate (GFR) from serum creatinine in children is the Bedside Valdes equation. It is less accurate in patients with extremes of muscle mass, restriction of dietary protein, ingestion of creatine, extra-renal metabolism of creatinine, or treatment with medications that affect renal tubular creatinine secretion. Free PSA/Total PSA [Mass fraction] 8.1 g/dL 6.3 - 8.2 g/dL [facility] Work Phone: [phone] Glucose [Mass/Vol] 135 mg/dL High 70 - 100 mg/dL [facility] Work Phone: [phone] Interpretation and review of laboratory results Abnormal [facility] Work Phone: [phone] Potassium [Moles/Vol] 5.0 mmol/L 3.5 - 5.1 mmol/L [facility] Work Phone: [phone] Comment on above: moderate hemolysis Sodium [Moles/Vol] 135 mmol/L 135 - 145 mmol/L [facility] Work Phone: [phone] Urea nitrogen (BldV) [Mass/Vol] 10 mg/dL 9 - 20 mg/dL [facility] Work Phone: Hemogram w/ Autodiffon 04-14 Abs Baso Cnt 0.1 10*3/uL Normal 0.0-0.2 [facility] Comment on above: Performed By: #### C VFLR #### [facility] [address] [place] [address] , [address] Abs Neutrophile Cnt 10.0 10*3/uL High 1.8-7.0 [facility] Comment on above: Performed By: #### C VFLR #### [facility] [address] [place] [address] , [address] Basophils/100 WBC (Bld) 0.4 % Normal 0.0-2.0 [facility] Comment on above: Performed By: #### C VFLR #### [facility] [address] [place] [address] , [address] Eosinophils (Bld) [#/Vol] 0.2 10*3/uL Normal 0.0-0.5 [facility] Comment on above: Performed By: #### C VFLR #### [facility] [address] [place] [address] , [address] Eosinophils/100 WBC (Bld) 1.3 % Normal 1.0-6.0 [facility] Comment on above: Performed By: #### C VFLR #### [facility] [address] [place] [address] , [address] Erythrocyte distribution width (RBC) [Ratio] 15.6 % High 11.5-14.5 [facility] Comment on above: Performed By: #### C VFLR #### [facility] [address] [place] [address] , [address] Granulocytes/100 WBC (Bld) 70.8 % Normal 40.0-80.0 [facility] Comment on above: Performed By: #### C VFLR #### [facility] [address] [place] [address] , [address] Hematocrit (Bld) [Volume fraction] 40.5 % Normal 35.0-47.0 [facility] Comment on above: Performed By: #### C VFLR #### [facility] [address] [place] [address] , [address] Hemoglobin (Bld) [Mass/Vol] 13.0 g/dL Normal 11.7-16.0 [facility] Comment on above: Performed By: #### C VFLR #### [facility] [address] [place] [address] , [address] Lymphocytes (Bld) [#/Vol] 2.9 10*3/uL Normal 1.0-4.3 [facility] Comment on above: Performed By: #### C VFLR #### [facility] [address] [place] [address] , [address] Lymphocytes/100 WBC (Bld) 20.7 % Normal 20.0-40.0 [facility] Comment on above: Performed By: #### C VFLR #### [facility] [address] [place] [address] , [address] MCH (RBC) [Entitic mass] 24.6 pg Low 26.0-34.0 [facility] Comment on above: Performed By: #### C VFLR #### [facility] [address] [place] [address] , [address] MCHC 32.1 % Normal 32.0-36.0 [facility] Comment on above: Performed By: #### C VFLR #### [facility] [address] [place] [address] , [address] MCV (RBC) [Entitic vol] 76.6 fL Low 79.0-98.0 [facility] Comment on above: Performed By: #### C VFLR #### [facility] [address] [place] [address] , [address] Monocytes (Bld) [#/Vol] 0.9 10*3/uL High 0.0-0.8 [facility] Comment on above: Performed By: #### C VFLR #### [facility] [address] [place] [address] , [address] Monocytes/100 WBC (Bld) 6.4 % Normal 2.0-10.0 [facility] Comment on above: Performed By: #### C VFLR #### [facility] [address] [place] [address] , [address] Platelet mean volume (Bld) [Entitic vol] 9.9 fL Normal 7.4-12.4 [facility] Comment on above: Result Comment: MPV is a calculated measurement using platelet volume ratio. Performed By: #### C VFLR #### [facility] [address] [place] [address] , [address] Platelets (Bld) [#/Vol] 405 10*3/uL Normal 140-440 [facility] Comment on above: Performed By: #### C VFLR #### [facility] [address] [place] [address] , [address] RBC (Bld) [#/Vol] 5.29 10*6/uL High 3.80-5.20 [facility] Comment on above: Performed By: #### C VFLR #### [facility] [address] [place] [address] , [address] WBC (Bld) [#/Vol] 14.2 10*3/uL High 3.6-10.7 [facility] Comment on above: Performed By: #### C VFLR #### [facility] [address] [place] [address] , [address] Lipaseon 04-14-2022 Lipase [Catalytic activity/Vol] 57 U/L Normal 23-300 [facility] Comment on above: Performed By: #### C VFLR #### [facility] [address] [place] [address] , [address] Lipase [Catalytic activity/Vol] 57 U/L 23 - 300 U/L [facility] Work Phone: No Panel Informationon 04-14 Test Performed by [facility], [address] , [place], [place] [address] [facility] Work Phone: SARS-CoV-2, Flu A/B and RSVo n 04-14-2022 SARS-CoV-2 (COVID-19) RNA CHRIS+probe Ql (Unsp spec) SARS-CoV-2 --> Status: F Not Detected. Flu A PCR --> Status: F Not Detected. Flu B PCR --> Status: F Not Detected. RSV PCR --> Status: F Not Detected. Expected Result: Not Detected _ Method: Real-time, RT-PCR This assay was developed by [employer] and distributed under an Emergency Use Authorization (EUA) granted by the FDA for the qualitative detection of nucleic acids from SARS-CoV-2, Influenza A, Influenza B, and Respiratory Syncytial Virus. Provider and patient fact sheets can be found at https://www.fda.gov/medi a/945173/download and https://www.fda.gov/medi a/023030/download. Expected Result: Not Detected _ Method: Real-time, RT-PCR This assay was developed by [employer] and distributed under an Emergency Use Authorization (EUA) granted by the FDA for the qualitative detection of nucleic acids from SARS-CoV-2, Influenza A, Influenza B, and Respiratory Syncytial Virus. Provider and patient fact sheets can be found at https://www.fda.gov/medi a/066411/download and https://www.fda.gov/medi a/307477/download. Normal [facility] Comment on above: Performed By: #### C VF #### [facility] [address] [place] [address] , [address] Urinalysison 04-14-2022 Appearance (U) Clear Clear NA [facility] Work Phone: [phone] Comment on above: . Bacteria, UA Few (1-5) Abnormal Negative /[facility]HPF] [facility] Work Phone: [phone] Comment on above: . Bilirubin Urine Negative Negative mg/dL [facility] Work Phone: [phone] Comment on above: . Color (U) COLORLESS Lt. Yellow NA [facility] Work Phone: [phone] Comment on above: . Glucose, Ur >1,000 Abnormal Normal (<70) mg/dL [facility] Work Phone: [phone] Comment on above: . Interpretation and review of laboratory results Abnormal [facility] Work Phone: [phone] Ketones Ql (U) Negative Negative mg/dL [facility] Work Phone: 1 Comment on above: . LEUKOCYTES, UA 250 Abnormal Negative Stephenie/uL [facility] Work Phone: 1 Comment on above: . Mucous Threads Few Negative /[LPF] [facility] Work Phone: 1 Comment on above: . Nitrite, Urine Negative Negative NA [facility] Work Phone: 1 Comment on above: . Occult Blood,Urine Negative Negative mg/dL [facility] Work Phone: 1 Comment on above: . pH (U) 5.5 [pH] [facility] Work Phone: Comment on above: . RBC, UA /[HPF] 0 - 2 /[HPF] [facility] Work Phone: 1 Comment on above: . Specific [place], Urine 1.008 [facility] Work Phone: 1 Comment on above: . Squam Epithel, UA 0-2 3 - 5 /[HPF] [facility] Work Phone: 1 Comment on above: . Total Protein, Urine Negative Negativ e mg/dL [facility] Work Phone: 1 Comment on above: . Urobilinogen, Urine Normal Normal ( 0-1) mg/dL [facility] Work Phone: 1 Comment on above: . Volume [address] [facility] Work Phone: 1 Comment on above: . WBC Clumps, Urine Rare Abnormal Negative /[HPF] [facility] Work Phone: Comment on above: . WBC, UA /[HPF] 0 - 5 /[HPF] [facility] Work Phone: Comment on above: . Test Performed by [facility], [address] , [place] [id number] [place] [address] [facility] Work Phone: [phone] CBC with Auto Differentialon 12-03-2021 Absolute Baso # 0.1 10*3/uL 0.0 - 0.2 10*3/uL [facility] Absolute Neut # 9.1 10*3/uL High 1.8 - 7.0 10*3/uL [facility] Basophils/100 WBC (Bld) 0.7 % 0.0 - 2.0 % [facility] Eosinophils (Bld) [#/Vol] 0.1 10*3/uL 0.0 - 0.5 10*3/uL [facility] Eosinophils/100 WBC (Bld) 1.1 % 1.0 - 6.0 % [facility] Granulocytes/100 WBC (Bld) 77.5 % 40.0 - 80.0 % [facility] Hematocrit (Bld) [Volume fraction] 40.9 % 35.0 - 47.0 % [facility] Hemoglobin.gastrointe stinal spec 1 Ql (Stl) 12.7 g/dL 11.7 - 16.0 g/dL [facility] Interpretation and review of laboratory results Abnormal [facility] Lymphocytes (Bld) [#/Vol] 1.6 10*3/uL 1.0 - 4.3 10*3/uL [facility] Lymphocytes/100 WBC (Bld) 14.0 % Low 20.0 - 40.0 % [facility] MCH (RBC) [Entitic mass] 22.8 pg Low 26.0 - 34.0 pg [facility] MCHC (RBC) [Mass/Vol] 31.1 % Low 32.0 - 36.0 % [facility] MCV (RBC) [Entitic vol] 73.3 fL Low 79.0 - 98.0 fL [facility] Monocytes (Bld) [#/Vol] 0.8 10*3/uL 0.0 - 0.8 10*3/uL [facility] Monocytes/100 WBC (Bld) 6.7 % 2.0 - 10.0 % [facility] Platelet distribution width (Bld) [Ratio] 16.6 % High 11.5 - 14.5 % [facility] Platelet mean volume (Bld) [Entitic vol] 7.9 fL 7.4 - 10.4 fL [facility] Platelets (Bld) [#/Vol] 404 10*3/uL 140 - 440 10*3/uL [facility] RBC (Bld) [#/Vol] 5.57 10*6/uL High 3.80 - 5.2 0 10*6/uL [facility] WBC (Bld) [#/Vol] 11.8 10*3/uL High 3.6 - 10.7 10*3/uL [facility] Test Performed by [facility], [address] , [address] LAB [facility] COVID-19, Flu A/B, and RSV C omboon 12-03-2021 Influenza A by PCR Not Detected. Not Detected. [facility] Influenza B by PCR Not Detected. Not Detected. [facility] RSV PCR Not Detected. Not Detected. Expected Result: Not Detected _ Method: Real-time, RT-PCR This assay was developed by [employer] and distributed under an Emergency Use Authorization (EUA) granted by the FDA for the qualitative detection of nucleic acids from SARS-CoV-2, Influenza A, Influenza B, and Respiratory Syncytial Virus. Provider and patient fact sheets can be found at https://www.fda.gov/medi a/979312/download and https://www.fda.gov/medi a/703355/download. [facility] SARS-CoV-2 (COVID-19) RNA CHRIS+probe Ql (Unsp spec) Not Detected. Not Detected. [facility] Test Performed by [facility], [address] , [address] [facility] Portableon 12-04-19 CR Chest Portable Patient Name: THEA DORMAN Diagnostic Radiology ACCESSION EXAM DATE/TIME PROCEDURE ORDERING PROVIDER [id number] 12/03/2021 15:00 EDT CR Chest Portable [id number] CORREA CPT code 28101 Reason For Exam (CR Chest Portable) cough Report EXAMINATION: Portable chest INDICATION: cough FINDINGS: Comparison: July 2021 Large patient body habitus slightly limits assessment. There is no focal consolidation, sizable pleural effusion or pneumothorax. Mild blunting of the right costophrenic angle is noted. Mild hyperinflation of the lungs is present. The cardiac silhouette and mediastinum are within normal limits. Small osteophytes of the spine are present at multiple levels. IMPRESSION: Mild blunting of the right costophrenic angle may be secondary to pleural thickening or small pleural effusion. Follow-up recommended. No gross consolidation or sizable infiltrate. Report Dictated on Final Dictating Physician: MD TORRES KRIKOR Signed Date and Time: 12/03/2021 3:13 pm Signed by: MD TORRES KRIKOR Transcribed Date and Time: 12/03/2021 3:14 Normal [facility] Comp Metabolic Panelon 12-03 ALP [Catalytic activity/Vol] 160 U/L High 38-126 [facility] Comment on above: Performed By: #### C VFLR #### [facility] [address] [place] [address] , [address] ALT [Catalytic activity/Vol] 21 U/L Normal 0-34 [facility] Comment on above: Result Comment: The ALT test is performed by an updated assay method. Please note that the reference intervals have been changed and are now sex specific. Performed By: #### C VFLR #### [facility] [address] [place] [address] , [address] Calcium [Mass/Vol] 9.7 mg/dL Normal 8.4-10.4 [facility] Comment on above: Performed By: #### C VFLR #### [facility] [address] [place] [address] , [address] Glucose [Mass/Vol] 219 mg/dL High 70-100 [facility] Comment on above: Performed By: #### C VFLR #### [facility] [address] [place] [address] , [address] Urea nitrogen [Mass/Vol] 15 mg/dL Normal 9-20 [facility] Comment on above: Performed By: #### C VFLR #### [facility] [address] [place] [address] , [address] Anion gap [Moles/Vol] 7 mmol/L Normal 3-13 [facility] Comment on above: Performed By: #### C VFLR #### [facility] [address] [place] [address] , [address] AST [Catalytic activity/Vol] 34 U/L Normal 15-46 [facility] Comment on above: Performed By: #### C VFLR #### [facility] [address] [place] [address] , [address] Bilirubin [Mass/Vol] 0.5 mg/dL Normal 0.2-1.3 [facility] Comment on above: Performed By: #### C VFLR #### [facility] [address] [place] [address] , [address] CO2 [Moles/Vol] 26 mmol/L Normal 22-30 [facility] Comment on above: Performed By: #### C VFLR #### [facility] [address] [place] [address] , [address] Creatinine [Mass/Vol] 0.60 mg/dL Normal 0.52-1.25 [facility] Comment on above: Performed By: #### C VFLR #### [facility] [address] [place] [address] , [address] eGFR OTHER > 90.0 Normal >60 [facility] Comment on above: Result Comment: KDIG O guidelines provide the following GFR categories: Stage GFR(ml/min/1.73 m2) Terms G1 >=90 Normal or high G2 60-89 Mildly decreased* G3a 45-59 Mildly to moderately decreased G3b 30-44 Moderately to severely decreased G4 15-29 Severely decreased G5 <15 Kidney failure *Relative to young adult level. In the absence of evidence of kidney damage, neither GFR category G1 nor G2 fulfill the criteria for CKD. The CKD-EPI equation is validated in individuals 18 years of age and older. Currently the best equation for estimating glomerular filtration rate (GFR) from serum creatinine in children is the Bedside Valdes equation. It is less accurate in patients with extremes of muscle mass, restriction of dietary protein, ingestion of creatine, extra-renal metabolism of creatinine, or treatment with medications that affect renal tubular creatinine secretion. Performed By: #### C VFLR #### [facility] [address] [place] [address] , [address] GFR/1.73 sq M.predicted among blacks MDRD (S/P/Bld) [Vol rate/Area] mL/min/{1.73_m2} Normal >60 [facility] Comment on above: Performed By: #### C VFLR #### [facility] [address] [place] [address] , [address] Protein [Mass/Vol] 7.5 g/dL Normal 6.3-8.2 [facility] Comment on above: Performed By: #### C VFLR #### [facility] [address] [place] [address] , [address] Chloride [Moles/Vol] 105 mmol/L Normal 98-107 [facility] Comment on above: Performed By: #### C VFLR #### [facility] [address] [place] [address] , [address] Potassium [Moles/Vol] 3.8 mmol/L Normal 3.5-5.1 [facility] Comment on above: Performed By: #### C VFLR #### [facility] [address] [place] [address] , [address] Sodium [Moles/Vol] 138 mmol/L Normal 135-145 [facility] Comment on above: Performed By: #### C VFLR #### [facility] [address] [place] [address] , [address] Albumin [Mass/Vol] 4.4 g/dL Normal 3.5-5.0 [facility] Comment on above: Performed By: #### C VFLR #### [facility] [address] [place] [address] , [address] Comprehensive Metabolic Pane gerber 12-03-2021 Albumin [Mass/Vol] 4.4 g/dL 3.5 - 5.0 g/dL [facility] ALP (Bld) [Catalytic activity/Vol] 160 U/L High 38 - 126 U/L [facility] ALT [Catalytic activity/Vol] 21 U/L 0 - 34 U/L [facility] Comment on above: The ALT test is perf ormed by an updated assay method. Please note that the reference intervals have been changed and are now sex specific. Anion gap [Moles/Vol] 7 mmol/L 3 - 13 mmol/L [facility] AST [Catalytic activity/Vol] 34 U/L 15 - 46 U/L [facility] Bilirubin [Mass/Vol] 0.5 mg/dL 0.2 - 1 .3 mg/dL [facility] Calcium [Mass/Vol] 9.7 mg/dL 8.4 - 10. 4 mg/dL [facility] Chloride [Moles/Vol] 105 mmol/L 98 - 10 7 mmol/L [facility] CO2 [Moles/Vol] 26 mmol/L 22 - 30 mmol/L [facility] Creatinine [Mass/Vol] 0.6 mg/dL 0.52 - 1.25 mg/dL [facility] EGFR IF NonAfrican Cymraes >90.0 >60 mL/min [facility] Comment on above: KDIGO guidelines pro vide the following GFR categories: Stage GFR(ml/min/1.73 m2) Terms G1 >=90 Normal or high G2 60-89 Mildly decreased* G3a 45-59 Mildly to moderately decreased G3b 30-44 Moderately to severely decreased G4 15-29 Severely decreased G5 <15 Kidney failure *Relative to young adult level. In the absence of evidence of kidney damage, neither GFR category G1 nor G2 fulfill the criteria for CKD. The CKD-EPI equation is validated in individuals 18 years of age and older. Currently the best equation for estimating glomerular filtration rate (GFR) from serum creatinine in children is the Bedside Valdes equation. It is less accurate in patients with extremes of muscle mass, restriction of dietary protein, ingestion of creatine, extra-renal metabolism of creatinine, or treatment with medications that affect renal tubular creatinine secretion. Free PSA/Total PSA [Mass fraction] 7.5 g/dL 6.3 - 8.2 g/dL [facility] GFR/1.73 sq M.predicted among blacks MDRD (S/P/Bld) [Vol rate/Area] mL/min/{1.73_m2} >60 mL/min [facility] Glucose [Mass/Vol] 219 mg/dL High 70 - 100 mg/dL [facility] Interpretation and review of laboratory results Abnormal [facility] Potassium [Moles/Vol] 3.8 mmol/L 3.5 - 5.1 mmol/L [facility] Sodium [Moles/Vol] 138 mmol/L 135 - 145 mmol/L [facility] Urea nitrogen (BldV) [Mass/Vol] 15 mg/dL 9 - 20 mg/dL [facility] Test Performed by [facility], [facility] [address] , [place] [id number] [facility] EKG 12 Leadon 12-03-2021 [facility] Test Date: 2021-12-03 Pat Name: THEA DORMAN Department: 2BED Room: 04 Gender: F 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 OTEROB: 1965 Requested By: LAURA GARDUNO Order Number: [id number] Reading MD: Laura Garduno Measurements Intervals [place] Rate: 88 P: 19 [place]: 164 QRS: -8 QRSD: 86 T: 46 QT: 340 QTc: 412 Interpretive Statements SINUS RHYTHM Compared to ECG 03/03/2021 21:09:56 No significant changes Electronically Signed On 12-03-2021 14:12:37 EDT by Laura Garduno [facility] Laura Garduno, - 12/03/2021 [facility] Test Date: 2021-12-03 Pat Name: THEA DORMAN Department: 2BED Room: 04 Gender: F 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 : 1965 Requested By: LAURA GARDUNO Order Number: [id number] Reading MD: Laura Garduno Measurements Intervals [place] Rate: 88 P: 19 [place]: 164 QRS: -8 QRSD: 86 T: 46 QT: 340 QTc: 412 Interpretive Statements SINUS RHYTHM Compared to ECG 03/03/2021 21:09:56 No significant changes Electronically Signed On 12-03-2021 14:12:37 EDT by Laura Garduno [facility] Work Phone: [facility] Work Phone: Hemogram w/ Autodiffon 12-03 Abs Baso Cnt 0.1 10*3/uL Normal 0.0-0.2 [facility] Comment on above: Performed By: #### C VFLR #### [facility] [address] [place] [address] , [address] Abs Neutrophile Cnt 9.1 10*3/uL High 1.8-7.0 [facility] Comment on above: Performed By: #### C VFLR #### [facility] [address] [place] [address] , [address] Basophils/100 WBC (Bld) 0.7 % Normal 0.0-2.0 [facility] Comment on above: Performed By: #### C VFLR #### [facility] [address] [place] [address] , [address] Eosinophils (Bld) [#/Vol] 0.1 10*3/uL Normal 0.0-0.5 [facility] Comment on above: Performed By: #### C VFLR #### [facility] [address] [place] [address] , [address] Eosinophils/100 WBC (Bld) 1.1 % Normal 1.0-6.0 [facility] Comment on above: Performed By: #### C VFLR #### [facility] [address] [place] [address] , [address] Erythrocyte distribution width (RBC) [Ratio] 16.6 % High 11.5-14.5 [facility] Comment on above: Performed By: #### C VFLR #### [facility] [address] [place] [address] , [address] Granulocytes/100 WBC (Bld) 77.5 % Normal 40.0-80.0 [facility] Comment on above: Performed By: #### C VFLR #### [facility] [address] [place] [address] , [address] Hematocrit (Bld) [Volume fraction] 40.9 % Normal 35.0-47.0 [facility] Comment on above: Performed By: #### C VFLR #### [facility] [address] [place] [address] , [address] Hemoglobin (Bld) [Mass/Vol] 12.7 g/dL Normal 11.7-16.0 [facility] Comment on above: Performed By: #### C VFLR #### [facility] [address] [place] [address] , [address] Lymphocytes (Bld) [#/Vol] 1.6 10*3/uL Normal 1.0-4.3 [facility] Comment on above: Performed By: #### C VFLR #### [facility] [address] [place] [address] , [address] Lymphocytes/100 WBC (Bld) 14.0 % Low 20.0-40.0 [facility] Comment on above: Performed By: #### C VFLR #### [facility] [address] [place] [address] , [address] MCH (RBC) [Entitic mass] 22.8 pg Low 26.0-34.0 [facility] Comment on above: Performed By: #### C VFLR #### [facility] [address] [place] [address] , [address] MCHC 31.1 % Low 32.0-36.0 [facility] Comment on above: Performed By: #### C VFLR #### [facility] [address] [place] [address] , [address] MCV (RBC) [Entitic vol] 73.3 fL Low 79.0-98.0 [facility] Comment on above: Performed By: #### C VFLR #### [facility] [address] [place] [address] , [address] Monocytes (Bld) [#/Vol] 0.8 10*3/uL Normal 0.0-0.8 [facility] Comment on above: Performed By: #### C VFLR #### [facility] [address] [place] [address] , [address] Monocytes/100 WBC (Bld) 6.7 % Normal 2.0-10.0 [facility] Comment on above: Performed By: #### C VFLR #### [facility] [address] [place] [address] , [address] Platelet mean volume (Bld) [Entitic vol] 7.9 fL Normal 7.4-10.4 [facility] Comment on above: Performed By: #### C VFLR #### [facility] [address] [place] [address] , [address] Platelets (Bld) [#/Vol] 404 10*3/uL Normal 140-440 [facility] Comment on above: Performed By: #### C VFLR #### [facility] [address] [place] [address] , [address] RBC (Bld) [#/Vol] 5.57 10*6/uL High 3.80-5.20 [facility] Comment on above: Performed By: #### C VFLR #### [facility] [address] [place] [address] , [address] WBC (Bld) [#/Vol] 11.8 10*3/uL High 3.6-10.7 [facility] Comment on above: Performed By: #### C VFLR #### [facility] [address] [place] [address] , [address] SARS-CoV-2, Flu A/B and RSVo n 12-03-2021 SARS-CoV-2 (COVID-19) RNA CHRIS+probe Ql (Unsp spec) SARS-CoV-2 --> Status: F Not Detected. Not Detected. Not Detected. Flu A PCR --> Status: F Not Detected. Not Detected. Not Detected. Flu B PCR --> Status: F Not Detected. Not Detected. Not Detected. RSV PCR --> Status: F Not Detected. Not Detected. Expected Result: Not Detected _ Method: Real-time, RT-PCR This assay was developed by [employer] and distributed under an Emergency Use Authorization (EUA) granted by the FDA for the qualitative detection of nucleic acids from SARS-CoV-2, Influenza A, Influenza B, and Respiratory Syncytial Virus. Provider and patient fact sheets can be found at https://www.fda.gov/medi a/049593/download and https://www.fda.gov/medi a/332295/download. Not Detected. Expected Result: Not Detected _ Method: Real-time, RT-PCR This assay was developed by [employer] and distributed under an Emergency Use Authorization (EUA) granted by the FDA for the qualitative detection of nucleic acids from SARS-CoV-2, Influenza A, Influenza B, and Respiratory Syncytial Virus. Provider and patient fact sheets can be found at https://www.fda.gov/medi a/294501/download and https://www.fda.gov/medi a/423734/download. Normal [facility] Comment on above: Performed By: #### C VFLR #### [facility] [address] [place] [address] , [address] Troponinon 12-03-2021 Troponin I.cardiac [Mass/Vol] ng/mL 0.000 - 0.034 ng/mL [facility] Comment on above: . Test Performed by [facility], [address] [place] [address] , [place], [place] [address] [facility] Troponin Ion 12-03-2021 Troponin I.cardiac [Mass/Vol] ng/mL Normal 0.000-0.034 [facility] Comment on above: Result Comment: . Performed By: #### C VFLR #### [facility] [address] [place] [address] , [address] XR CHEST PORTABLEon 12-04-19 Patient Name: THEA DORMAN Diagnostic Radiology ACCESSION EXAM DATE/TIME PROCEDURE ORDERING PROVIDER [id number] 12/03/2021 15:00 EDT CR Chest Portable [id number] LAURA MCKEON CPT code 98842 Reason For Exam (CR Chest Portable) cough Report EXAMINATION: Portable chest INDICATION: cough FINDINGS: Comparison: July 2021 Large patient body habitus slightly limits assessment. There is no focal consolidation, sizable pleural effusion or pneumothorax. Mild blunting of the right costophrenic angle is noted. Mild hyperinflation of the lungs is present. The cardiac silhouette and mediastinum are within normal limits. Small osteophytes of the spine are present at multiple levels. IMPRESSION: Mild blunting of the right costophrenic angle may be secondary to pleural thickening or small pleural effusion. Follow-up recommended. No gross consolidation or sizable infiltrate. Report Dictated on --- Final --- Dictating Physician: MD TORRES KRIKOR Signed Date and Time: 12/03/2021 3:13 pm Signed by: MD TORRES KRIKOR Transcribed Date and Time: 12/03/2021 3:14 [facility] Cam Torres MD - 12/03/2021 Patient Name: THEA DORMAN Diagnostic Radiology ACCESSION EXAM DATE/TIME PROCEDURE ORDERING PROVIDER [id number] 12/03/2021 15:00 EDT CR Chest Portable [id number] LAURA MCKEON CPT code 46549 Reason For Exam (CR Chest Portable) cough Report EXAMINATION: Portable chest INDICATION: cough FINDINGS: Comparison: July 2021 Large patient body habitus slightly limits assessment. There is no focal consolidation, sizable pleural effusion or pneumothorax. Mild blunting of the right costophrenic angle is noted. Mild hyperinflation of the lungs is present. The cardiac silhouette and mediastinum are within normal limits. Small osteophytes of the spine are present at multiple levels. IMPRESSION: Mild blunting of the right costophrenic angle may be secondary to pleural thickening or small pleural effusion. Follow-up recommended. No gross consolidation or sizable infiltrate. Report Dictated on --- Final --- Dictating Physician: MD TORRES KRIKOR Signed Date and Time: 12/03/2021 3:13 pm Signed by: MD TORRES KRIKOR Transcribed Date and Time: 12/03/2021 3:14 [facility] Work Phone: Radiology Study observation (narrative) [facility] Work Phone: XR CHEST PORTABLEOrdered By: Cam Torres on 12-03-2021 [facility] Work Phone: Glucose, Bedsideon 2 Confirmation see below Normal [facility] Comment on above: Result Comment: No c onfirmation received. Performed By: #### B GLU #### [address] [address] Glucose,Bedside > 450 High 70-100 [facility] Comment on above: Result Comment: Test performed by glucose meter. Results may be 10%-15% lower than serum/plasma values. (CLIA ID [id number]) Performed By: #### B GLU #### [facility] [address] [place] [address] C-REACTIVE PROTEINon CRP [Mass/Vol] 26.2 mg/L High 0.0 - 9.9 mg/L [facility] Comment on above: . C-Reactive Proteinon CRP [Mass/Vol] 26.2 mg/L High 0.0-9.9 [facility] Comment on above: Result Comment: . Performed By: #### B GLU #### [facility] [address] [place] [address] CBC Auto Differentialon Absolute Baso # 0.1 10*3/uL 0.0 - 0.2 10*3/uL [facility] Absolute Neut # 5.9 10*3/uL 1.8 - 7.0 10*3/uL [facility] Basophils/100 WBC (Bld) 0.6 % 0.0 - 2.0 % [facility] Eosinophils (Bld) [#/Vol] 0.4 10*3/uL 0.0 - 0.5 10*3/uL [facility] Eosinophils/100 WBC (Bld) 4.8 % 1.0 - 6.0 % [facility] Granulocytes/100 WBC (Bld) 64.7 % 40.0 - 80.0 % [facility] Hematocrit (Bld) [Volume fraction] 37.0 % 35.0 - 47.0 % [facility] Hemoglobin.gastrointe stinal spec 1 Ql (Stl) 11.3 g/dL Low 11.7 - 16.0 g/dL [facility] Interpretation and review of laboratory results Abnormal [facility] Lymphocytes (Bld) [#/Vol] 2.1 10*3/uL 1.0 - 4.3 10*3/uL [facility] Lymphocytes/100 WBC (Bld) 22.7 % 20.0 - 40.0 % [facility] MCH (RBC) [Entitic mass] 23.7 pg Low 26.0 - 34.0 pg [facility] MCHC (RBC) [Mass/Vol] 30.7 % Low 32.0 - 36.0 % [facility] MCV (RBC) [Entitic vol] 77.1 fL Low 79.0 - 98.0 fL [facility] Monocytes (Bld) [#/Vol] 0.7 10*3/uL 0.0 - 0.8 10*3/uL [facility] Monocytes/100 WBC (Bld) 7.2 % 2.0 - 10.0 % [facility] Platelet distribution width (Bld) [Ratio] 15.8 % High 11.5 - 14.5 % [facility] Platelet mean volume (Bld) [Entitic vol] 8.5 fL 7.4 - 10.4 fL [facility] Platelets (Bld) [#/Vol] 302 10*3/uL 140 - 440 10*3/uL [facility] RBC (Bld) [#/Vol] 4.79 10*6/uL 3.80 - 5.2 0 10*6/uL [facility] WBC (Bld) [#/Vol] 9.1 10*3/uL 3.6 - 10.7 10*3/uL [facility] Test Performed by [id number] [place] [address] LAB [facility] Comp Panel with Mg Reflexon 08-18-2021 Calcium [Mass/Vol] 9.0 mg/dL Normal 8.4-10.4 [facility] Comment on above: Performed By: #### B GLU #### [address] ALP [Catalytic activity/Vol] 114 U/L Normal 38-126 [facility] Comment on above: Performed By: #### B GLU #### [address] ALT [Catalytic activity/Vol] 22 U/L Normal 0-34 [facility] Comment on above: Result Comment: The ALT test is performed by an updated assay method. Please note that the reference intervals have been changed and are now sex specific. Performed By: #### B GLU #### [address] Anion gap [Moles/Vol] 8 mmol/L Normal 3-13 [facility] Comment on above: Performed By: #### B GLU #### [facility] [address] [place], [place] AST [Catalytic activity/Vol] 22 U/L Normal 15-46 [facility] Comment on above: Performed By: #### B GLU #### [facility] [address] [place], [place] CO2 [Moles/Vol] 28 mmol/L Normal 22-30 [facility] Comment on above: Performed By: #### B GLU #### [facility] [address] [place], [place] Glucose [Mass/Vol] 227 mg/dL High 70-100 [facility] Comment on above: Performed By: #### B GLU #### [place] [address] [address] [place], [place] Protein [Mass/Vol] 6.2 g/dL Low 6.3-8.2 [facility] Comment on above: Performed By: #### B GLU #### [place] [address] [address] [place], [place] Urea nitrogen [Mass/Vol] 17 mg/dL Normal 9-20 [facility] Comment on above: Performed By: #### B GLU #### [place] [address] [address] [place], [place] Bilirubin [Mass/Vol] 0.3 mg/dL Normal 0.2-1.3 [facility] Comment on above: Performed By: #### B GLU #### [address] [place] [address] [address] [place], [place] Creatinine [Mass/Vol] 0.46 mg/dL Low 0.52-1.25 [facility] Comment on above: Performed By: #### B GLU #### [address] [place] [address] [address] [place], [place] eGFR OTHER > 90.0 Normal >60 [facility] Comment on above: Result Comment: KDIG O guidelines provide the following GFR categories: Stage GFR(ml/min/1.73 m2) Terms G1 >=90 Normal or high G2 60-89 Mildly decreased* G3a 45-59 Mildly to moderately decreased G3b 30-44 Moderately to severely decreased G4 15-29 Severely decreased G5 <15 Kidney failure *Relative to young adult level. In the absence of evidence of kidney damage, neither GFR category G1 nor G2 fulfill the criteria for CKD. The CKD-EPI equation is validated in individuals 18 years of age and older. Currently the best equation for estimating glomerular filtration rate (GFR) from serum creatinine in children is the Bedside Valdes equation. It is less accurate in patients with extremes of muscle mass, restriction of dietary protein, ingestion of creatine, extra-renal metabolism of creatinine, or treatment with medications that affect renal tubular creatinine secretion. Performed By: #### B GLU #### [place] [address] [address] [place], [place] GFR/1.73 sq M.predicted among blacks MDRD (S/P/Bld) [Vol rate/Area] mL/min/{1.73_m2} Normal >60 [facility] Comment on above: Performed By: #### B GLU #### [address] [place] [address] [address] [place], [place] Albumin [Mass/Vol] 3.4 g/dL Low 3.5-5.0 [facility] Comment on above: Performed By: #### B GLU #### [address] [place] [address] [place] [address] Chloride [Moles/Vol] 101 mmol/L Normal 98-107 [facility] Comment on above: Performed By: #### B GLU #### [address] [place] [address] [place] [address] Potassium [Moles/Vol] 3.8 mmol/L Normal 3.5-5.1 [facility] Comment on above: Performed By: #### B GLU #### [address] [place] [address] [address] [place], [place] Sodium [Moles/Vol] 137 mmol/L Normal 135-145 [facility] Comment on above: Performed By: #### B GLU #### [address] [place], [place] Comprehensive Metabolic Pane l w/ Reflex to MGon 08-18-2021 Albumin [Mass/Vol] 3.4 g/dL Low 3.5 - 5.0 g/dL [facility] ALP (Bld) [Catalytic activity/Vol] 114 U/L 38 - 126 U/L [facility] ALT [Catalytic activity/Vol] 22 U/L 0 - 34 U/L [facility] Comment on above: The ALT test is perf ormed by an updated assay method. Please note that the reference intervals have been changed and are now sex specific. Anion gap [Moles/Vol] 8 mmol/L 3 - 13 mmol/L [facility] AST [Catalytic activity/Vol] 22 U/L 15 - 46 U/L [facility] Bilirubin [Mass/Vol] 0.3 mg/dL 0.2 - 1 .3 mg/dL [facility] Calcium [Mass/Vol] 9.0 mg/dL 8.4 - 10. 4 mg/dL [facility] Chloride [Moles/Vol] 101 mmol/L 98 - 10 7 mmol/L [facility] CO2 [Moles/Vol] 28 mmol/L 22 - 30 mmol/L [facility] Creatinine [Mass/Vol] 0.46 mg/dL Low 0.52 - 1.25 mg/dL [facility] EGFR IF NonAfrican Cymraes >90.0 >60 mL/min [facility] Comment on above: KDIGO guidelines pro vide the following GFR categories: Stage GFR(ml/min/1.73 m2) Terms G1 >=90 Normal or high G2 60-89 Mildly decreased* G3a 45-59 Mildly to moderately decreased G3b 30-44 Moderately to severely decreased G4 15-29 Severely decreased G5 <15 Kidney failure *Relative to young adult level. In the absence of evidence of kidney damage, neither GFR category G1 nor G2 fulfill the criteria for CKD. The CKD-EPI equation is validated in individuals 18 years of age and older. Currently the best equation for estimating glomerular filtration rate (GFR) from serum creatinine in children is the Bedside Valdes equation. It is less accurate in patients with extremes of muscle mass, restriction of dietary protein, ingestion of creatine, extra-renal metabolism of creatinine, or treatment with medications that affect renal tubular creatinine secretion. Free PSA/Total PSA [Mass fraction] 6.2 g/dL Low 6.3 - 8.2 g/dL [facility] GFR/1.73 sq M.predicted among blacks MDRD (S/P/Bld) [Vol rate/Area] mL/min/{1.73_m2} >60 mL/min [facility] Glucose [Mass/Vol] 227 mg/dL High 70 - 100 mg/dL [facility] Potassium [Moles/Vol] 3.8 mmol/L 3.5 - 5.1 mmol/L [facility] Sodium [Moles/Vol] 137 mmol/L 135 - 145 mmol/L [facility] Urea nitrogen (BldV) [Mass/Vol] 17 mg/dL 9 - 20 mg/dL [facility] D-Dimer, Innovanceon 022 D-Dimer, Innovance 1.44 mg/L High <0.19-0.50 [facility] Comment on above: Result Comment: [place] D-Dimer values of <0.50 mg/L FEU can be used in combination with a pre-test probability model (e.g. Well's) to exclude pulmonary embolism (PE) disease, as well as an aid in the diagnosis of deep vein thrombosis (DVT). Performed By: #### B GLU #### [address] [address] D-Dimer, Quantitativeon D-Dimer, Quant 1.44 mg/L High <0.19 - 0.50 [facility] Comment on above: [facility] D-Dimer va lues of <0.50 mg/L FEU can be used in combination with a pre-test probability model (e.g. Well's) to exclude pulmonary embolism (PE) disease, as well as an aid in the diagnosis of deep vein thrombosis (DVT). Interpretation and review of laboratory results Abnormal [facility] Test Performed by [facility], [address] [place] [id number] [place] [address] [facility] Glucose,Bedsideon 08-18-2021 Glucose [Mass/Vol] 392 mg/dL High 70-100 [facility] Comment on above: Result Comment: Test performed by glucose meter. Results may be 10%-15% lower than serum/plasma values. (CLIA ID [id number]) Performed By: #### B GLU #### [facility] [address] [place] [address] Glucose [Mass/Vol] 199 mg/dL High 70-100 [facility] Comment on above: Result Comment: Test performed by glucose meter. Results may be 10%-15% lower than serum/plasma values. (CLIA ID [id number]) Performed By: #### B GLU #### [place] [address] [address] [place], [place] Glucose [Mass/Vol] 201 mg/dL High 70-100 [facility] Comment on above: Result Comment: Test performed by glucose meter. Results may be 10%-15% lower than serum/plasma values. (CLIA ID [id number]) Performed By: #### B GLU #### [address] [place] [address] [address] [place], [place] Hemogram w/ Autodiffon 08-18 Abs Baso Cnt 0.1 10*3/uL Normal 0.0-0.2 [facility] Comment on above: Performed By: #### B GLU #### [address] Abs Neutrophile Cnt 5.9 10*3/uL Normal 1.8-7.0 [facility] Comment on above: Performed By: #### B GLU #### [address] [place], [place] Basophils/100 WBC (Bld) 0.6 % Normal 0.0-2.0 [facility] Comment on above: Performed By: #### B GLU #### [address] Eosinophils (Bld) [#/Vol] 0.4 10*3/uL Normal 0.0-0.5 [facility] Comment on above: Performed By: #### B GLU #### [place] [address] [address] [place], [place] Eosinophils/100 WBC (Bld) 4.8 % Normal 1.0-6.0 [facility] Comment on above: Performed By: #### B GLU #### [address] Erythrocyte distribution width (RBC) [Ratio] 15.8 % High 11.5-14.5 [facility] Comment on above: Performed By: #### B GLU #### [address] Granulocytes/100 WBC (Bld) 64.7 % Normal 40.0-80.0 [facility] Comment on above: Performed By: #### B GLU #### [address] [place] [address] [address] [place], [place] Hematocrit (Bld) [Volume fraction] 37.0 % Normal 35.0-47.0 [facility] Comment on above: Performed By: #### B GLU #### [address] [place] [address] [address] [place], [place] Hemoglobin (Bld) [Mass/Vol] 11.3 g/dL Low 11.7-16.0 [facility] Comment on above: Performed By: #### B GLU #### [address] [address] [place], [place] Lymphocytes (Bld) [#/Vol] 2.1 10*3/uL Normal 1.0-4.3 [facility] Comment on above: Performed By: #### B GLU #### [address] [place] [address] [address] [place], [place] Lymphocytes/100 WBC (Bld) 22.7 % Normal 20.0-40.0 [facility] Comment on above: Performed By: #### B GLU #### [address] [place] [address] [address] [place], [place] MCH (RBC) [Entitic mass] 23.7 pg Low 26.0-34.0 [facility] Comment on above: Performed By: #### B GLU #### [address] [place] [address] [address] [place], [place] MCHC 30.7 % Low 32.0-36.0 [facility] Comment on above: Performed By: #### B GLU #### [address] [place], [place] MCV (RBC) [Entitic vol] 77.1 fL Low 79.0-98.0 [facility] Comment on above: Performed By: #### B GLU #### [address] [place] [address] [place], [place] Monocytes (Bld) [#/Vol] 0.7 10*3/uL Normal 0.0-0.8 [facility] Comment on above: Performed By: #### B GLU #### [address] [place] [address] [address] [place], [place] Monocytes/100 WBC (Bld) 7.2 % Normal 2.0-10.0 [facility] Comment on above: Performed By: #### B GLU #### [place] [address] [address] [place], [place] Platelet mean volume (Bld) [Entitic vol] 8.5 fL Normal 7.4-10.4 [facility] Comment on above: Performed By: #### B GLU #### [address] [place] [address] [place], [place] Platelets (Bld) [#/Vol] 302 10*3/uL Normal 140-440 [facility] Comment on above: Performed By: #### B GLU #### [address] [place] [address] [place], [place] RBC (Bld) [#/Vol] 4.79 10*6/uL Normal 3.80-5.20 [facility] Comment on above: Performed By: #### B GLU #### [address] [place] [address] [address] [place], [place] WBC (Bld) [#/Vol] 9.1 10*3/uL Normal 3.6-10.7 [facility] Comment on above: Performed By: #### B GLU #### [place] [address] [address] [place], [place] No Panel Informationon 08-18 Interpretation and review of laboratory results Abnormal [facility] Test Performed by [id number] [place] [address] LAB [facility] POCT Glucoseon 08-18-2021 Glucose [Mass/Vol] 392 mg/dL High 70 - 100 mg/dL [facility] Comment on above: Test performed by ucose meter. Results may be 10%-15% lower than serum/plasma values. (CLIA ID [id number]) Interpretation and review of laboratory results Abnormal [facility] Test Performed by [address] [address] [facility] Glucose [Mass/Vol] 199 mg/dL High 70 - 100 mg/dL [facility] Comment on above: Test performed by gl ucose meter. Results may be 10%-15% lower than serum/plasma values. (CLIA ID [id number]) Interpretation and review of laboratory results Abnormal [facility] Test Performed by [facility], [address] [place] [address] [address] [facility] Glucose [Mass/Vol] 201 mg/dL High 70 - 100 mg/dL [facility] Comment on above: Test performed by gl ucose meter. Results may be 10%-15% lower than serum/plasma values. (CLIA ID [id number]) Interpretation and review of laboratory results Abnormal [facility] Test Performed by [facility], [address] [place] [address] [address] [facility] C-REACTIVE PROTEINon 022 CRP [Mass/Vol] 32.9 mg/L High 0.0 - 9.9 mg/L [facility] Comment on above: . C-Reactive Proteinon 022 CRP [Mass/Vol] 32.9 mg/L High 0.0-9.9 [facility] Comment on above: Result Comment: . Performed By: #### B GLU #### [address] [address] CBC Auto Differentialon Absolute Baso # 0.0 10*3/uL 0.0 - 0.2 10*3/uL [facility] Absolute Neut # 5.0 10*3/uL 1.8 - 7.0 10*3/uL [facility] Basophils/100 WBC (Bld) 0.5 % 0.0 - 2.0 % [facility] Eosinophils (Bld) [#/Vol] 0.3 10*3/uL 0.0 - 0.5 10*3/uL [facility] Eosinophils/100 WBC (Bld) 4.3 % 1.0 - 6.0 % [facility] Granulocytes/100 WBC (Bld) 66.0 % 40.0 - 80.0 % [facility] Hematocrit (Bld) [Volume fraction] 36.1 % 35.0 - 47.0 % [facility] Hemoglobin.gastrointe stinal spec 1 Ql (Stl) 11.2 g/dL Low 11.7 - 16.0 g/dL [facility] Interpretation and review of laboratory results Abnormal [facility] Lymphocytes (Bld) [#/Vol] 1.5 10*3/uL 1.0 - 4.3 10*3/uL [facility] Lymphocytes/100 WBC (Bld) 19.9 % Low 20.0 - 40.0 % [facility] MCH (RBC) [Entitic mass] 23.9 pg Low 26.0 - 34.0 pg [facility] MCHC (RBC) [Mass/Vol] 30.9 % Low 32.0 - 36.0 % [facility] MCV (RBC) [Entitic vol] 77.3 fL Low 79.0 - 98.0 fL [facility] Monocytes (Bld) [#/Vol] 0.7 10*3/uL 0.0 - 0.8 10*3/uL [facility] Monocytes/100 WBC (Bld) 9.3 % 2.0 - 10.0 % [facility] Platelet distribution width (Bld) [Ratio] 15.8 % High 11.5 - 14.5 % [facility] Platelet mean volume (Bld) [Entitic vol] 8.5 fL 7.4 - 10.4 fL [facility] Platelets (Bld) [#/Vol] 313 10*3/uL 140 - 440 10*3/uL [facility] RBC (Bld) [#/Vol] 4.67 10*6/uL 3.80 - 5.2 0 10*6/uL [facility] WBC (Bld) [#/Vol] 7.5 10*3/uL 3.6 - 10.7 10*3/uL [facility] Test Performed by [facility], [address] [place] [address] [id number] [facility] Comp Panel with Mg Reflexon 08-17-2021 ALP [Catalytic activity/Vol] 118 U/L Normal 38-126 [facility] Comment on above: Performed By: #### B GLU #### [facility] [address] [place] [address] ALT [Catalytic activity/Vol] 24 U/L Normal 0-34 [facility] Comment on above: Result Comment: The ALT test is performed by an updated assay method. Please note that the reference intervals have been changed and are now sex specific. Performed By: #### B GLU #### [facility] [address], [place] Anion gap [Moles/Vol] 7 mmol/L Normal 3-13 [facility] Comment on above: Performed By: #### B GLU #### [facility] [address], [place] AST [Catalytic activity/Vol] 23 U/L Normal 15-46 [facility] Comment on above: Performed By: #### B GLU #### [place] [address] [address], [place] Bilirubin [Mass/Vol] 0.4 mg/dL Normal 0.2-1.3 [facility] Comment on above: Performed By: #### B GLU #### [place] [address] [address], [place] Calcium [Mass/Vol] 9.0 mg/dL Normal 8.4-10.4 [facility] Comment on above: Performed By: #### B GLU #### [place] [address] [address], [place] CO2 [Moles/Vol] 29 mmol/L Normal 22-30 [facility] Comment on above: Performed By: #### B GLU #### [place] [address] [address], [place] Glucose [Mass/Vol] 222 mg/dL High 70-100 [facility] Comment on above: Performed By: #### B GLU #### [place] [address] [address], [place] Protein [Mass/Vol] 6.3 g/dL Normal 6.3-8.2 [facility] Comment on above: Performed By: #### B GLU #### [place] [address] [address], [place] Urea nitrogen [Mass/Vol] 17 mg/dL Normal 9-20 [facility] Comment on above: Performed By: #### B GLU #### [place] [address] [address], [place] Creatinine [Mass/Vol] 0.52 mg/dL Normal 0.52-1.25 [facility] Comment on above: Performed By: #### B GLU #### [facility] [address], [place] eGFR OTHER > 90.0 Normal >60 [facility] Comment on above: Result Comment: KDIG O guidelines provide the following GFR categories: Stage GFR(ml/min/1.73 m2) Terms G1 >=90 Normal or high G2 60-89 Mildly decreased* G3a 45-59 Mildly to moderately decreased G3b 30-44 Moderately to severely decreased G4 15-29 Severely decreased G5 <15 Kidney failure *Relative to young adult level. In the absence of evidence of kidney damage, neither GFR category G1 nor G2 fulfill the criteria for CKD. The CKD-EPI equation is validated in individuals 18 years of age and older. Currently the best equation for estimating glomerular filtration rate (GFR) from serum creatinine in children is the Bedside Valdes equation. It is less accurate in patients with extremes of muscle mass, restriction of dietary protein, ingestion of creatine, extra-renal metabolism of creatinine, or treatment with medications that affect renal tubular creatinine secretion. Performed By: #### B GLU #### [place] [address] [address], [place] GFR/1.73 sq M.predicted among blacks MDRD (S/P/Bld) [Vol rate/Area] mL/min/{1.73_m2} Normal >60 [facility] Comment on above: Performed By: #### B GLU #### [place] [address] [address], [place] Potassium [Moles/Vol] 3.6 mmol/L Normal 3.5-5.1 [facility] Comment on above: Performed By: #### B GLU #### [place] [address] [address], [place] Albumin [Mass/Vol] 3.5 g/dL Normal 3.5-5.0 [facility] Comment on above: Performed By: #### B GLU #### [place] [address] [address], [place] Chloride [Moles/Vol] 101 mmol/L Normal 98-107 [facility] Comment on above: Performed By: #### B GLU #### [facility] [address], [place] Sodium [Moles/Vol] 137 mmol/L Normal 135-145 [facility] Comment on above: Performed By: #### B GLU #### [facility] [address], [place] Comprehensive Metabolic Pane l w/ Reflex to MGon 08-17-2021 Albumin [Mass/Vol] 3.5 g/dL 3.5 - 5.0 g/dL [facility] ALP (Bld) [Catalytic activity/Vol] 118 U/L 38 - 126 U/L [facility] ALT [Catalytic activity/Vol] 24 U/L 0 - 34 U/L [facility] Comment on above: The ALT test is perf ormed by an updated assay method. Please note that the reference intervals have been changed and are now sex specific. Anion gap [Moles/Vol] 7 mmol/L 3 - 13 mmol/L [facility] AST [Catalytic activity/Vol] 23 U/L 15 - 46 U/L [facility] Bilirubin [Mass/Vol] 0.4 mg/dL 0.2 - 1 .3 mg/dL [facility] Calcium [Mass/Vol] 9.0 mg/dL 8.4 - 10. 4 mg/dL [facility] Chloride [Moles/Vol] 101 mmol/L 98 - 10 7 mmol/L [facility] CO2 [Moles/Vol] 29 mmol/L 22 - 30 mmol/L [facility] Creatinine [Mass/Vol] 0.52 mg/dL 0.52 - 1.25 mg/dL [facility] EGFR IF NonAfrican Cymraes >90.0 >60 mL/min [facility] Comment on above: KDIGO guidelines pro vide the following GFR categories: Stage GFR(ml/min/1.73 m2) Terms G1 >=90 Normal or high G2 60-89 Mildly decreased* G3a 45-59 Mildly to moderately decreased G3b 30-44 Moderately to severely decreased G4 15-29 Severely decreased G5 <15 Kidney failure *Relative to young adult level. In the absence of evidence of kidney damage, neither GFR category G1 nor G2 fulfill the criteria for CKD. The CKD-EPI equation is validated in individuals 18 years of age and older. Currently the best equation for estimating glomerular filtration rate (GFR) from serum creatinine in children is the Bedside Valdes equation. It is less accurate in patients with extremes of muscle mass, restriction of dietary protein, ingestion of creatine, extra-renal metabolism of creatinine, or treatment with medications that affect renal tubular creatinine secretion. Free PSA/Total PSA [Mass fraction] 6.3 g/dL 6.3 - 8.2 g/dL [facility] GFR/1.73 sq M.predicted among blacks MDRD (S/P/Bld) [Vol rate/Area] mL/min/{1.73_m2} >60 mL/min [facility] Glucose [Mass/Vol] 222 mg/dL High 70 - 100 mg/dL [facility] Potassium [Moles/Vol] 3.6 mmol/L 3.5 - 5.1 mmol/L [facility] Sodium [Moles/Vol] 137 mmol/L 135 - 145 mmol/L [facility] Urea nitrogen (BldV) [Mass/Vol] 17 mg/dL 9 - 20 mg/dL [facility] D-Dimer, Innovanceon 022 D-Dimer, Innovance 1.25 mg/L High <0.19-0.50 [facility] Comment on above: Result Comment: [place] D-Dimer values of <0.50 mg/L FEU can be used in combination with a pre-test probability model (e.g. Well's) to exclude pulmonary embolism (PE) disease, as well as an aid in the diagnosis of deep vein thrombosis (DVT). Performed By: #### B GLU #### [facility] [address] [place] [address] D-Dimer, Quantitativeon D-Dimer, Quant 1.25 mg/L High <0.19 - 0.50 [facility] Comment on above: [place] D-Dimer va lues of <0.50 mg/L FEU can be used in combination with a pre-test probability model (e.g. Well's) to exclude pulmonary embolism (PE) disease, as well as an aid in the diagnosis of deep vein thrombosis (DVT). Glucose,Bedsideon 08-17-2021 Glucose [Mass/Vol] 350 mg/dL High 70-100 [facility] Comment on above: Result Comment: in home caregiver Notified; Test performed by glucose meter. Results may be 10%-15% lower than serum/plasma values. (CLIA ID [id number]) Performed By: #### B GLU #### [facility] [address], [place] Glucose [Mass/Vol] 282 mg/dL High 70-100 [facility] Comment on above: Result Comment: Test performed by glucose meter. Results may be 10%-15% lower than serum/plasma values. (CLIA ID [id number]) Performed By: #### B GLU #### [facility] [address], [place] Glucose [Mass/Vol] 205 mg/dL High 70-100 [facility] Comment on above: Result Comment: Test performed by glucose meter. Results may be 10%-15% lower than serum/plasma values. (CLIA ID [id number]) Performed By: #### B GLU #### [place] [address] [address], [place] Glucose [Mass/Vol] 176 mg/dL High 70-100 [facility] Comment on above: Test performed by gl ucose meter. Results may be 10%-15% lower than serum/plasma values. (CLIA ID [id number]) Result Comment: Test performed by glucose meter. Results may be 10%-15% lower than serum/plasma values. (CLIA ID [id number]) Performed By: #### B GLU #### [facility] [address], [place] Hemogram w/ Autodiffon 08-17 Abs Baso Cnt 0.0 10*3/uL Normal 0.0-0.2 [facility] Comment on above: Performed By: #### B GLU #### [facility] [address], [place] Abs Neutrophile Cnt 5.0 10*3/uL Normal 1.8-7.0 [facility] Comment on above: Performed By: #### B GLU #### [facility] [address], [place] Basophils/100 WBC (Bld) 0.5 % Normal 0.0-2.0 [facility] Comment on above: Performed By: #### B GLU #### [facility] [address], [place] Eosinophils (Bld) [#/Vol] 0.3 10*3/uL Normal 0.0-0.5 [facility] Comment on above: Performed By: #### B GLU #### [facility] [address], [place] Eosinophils/100 WBC (Bld) 4.3 % Normal 1.0-6.0 [facility] Comment on above: Performed By: #### B GLU #### [facility] [address], [place] Erythrocyte distribution width (RBC) [Ratio] 15.8 % High 11.5-14.5 [facility] Comment on above: Performed By: #### B GLU #### [place] [address] [address], [place] Granulocytes/100 WBC (Bld) 66.0 % Normal 40.0-80.0 [facility] Comment on above: Performed By: #### B GLU #### [facility] [address], [place] Hematocrit (Bld) [Volume fraction] 36.1 % Normal 35.0-47.0 [facility] Comment on above: Performed By: #### B GLU #### [facility] [address], [place] Hemoglobin (Bld) [Mass/Vol] 11.2 g/dL Low 11.7-16.0 [facility] Comment on above: Performed By: #### B GLU #### [facility] [address], [place] Lymphocytes (Bld) [#/Vol] 1.5 10*3/uL Normal 1.0-4.3 [facility] Comment on above: Performed By: #### B GLU #### [place] [address] [address], [place] Lymphocytes/100 WBC (Bld) 19.9 % Low 20.0-40.0 [facility] Comment on above: Performed By: #### B GLU #### [facility] [address], [place] MCH (RBC) [Entitic mass] 23.9 pg Low 26.0-34.0 [facility] Comment on above: Performed By: #### B GLU #### [facility] [address], [place] MCHC 30.9 % Low 32.0-36.0 [facility] Comment on above: Performed By: #### B GLU #### [facility] [address], [place] MCV (RBC) [Entitic vol] 77.3 fL Low 79.0-98.0 [facility] Comment on above: Performed By: #### B GLU #### [place] [address] [address], [place] Monocytes (Bld) [#/Vol] 0.7 10*3/uL Normal 0.0-0.8 [facility] Comment on above: Performed By: #### B GLU #### [facility] [address], [place] Monocytes/100 WBC (Bld) 9.3 % Normal 2.0-10.0 [facility] Comment on above: Performed By: #### B GLU #### [facility] [address], [place] Platelet mean volume (Bld) [Entitic vol] 8.5 fL Normal 7.4-10.4 [facility] Comment on above: Performed By: #### B GLU #### [facility] [address], [place] Platelets (Bld) [#/Vol] 313 10*3/uL Normal 140-440 [facility] Comment on above: Performed By: #### B GLU #### [facility] [address], [place] RBC (Bld) [#/Vol] 4.67 10*6/uL Normal 3.80-5.20 [facility] Comment on above: Performed By: #### B GLU #### [place] [address] [place] [address] WBC (Bld) [#/Vol] 7.5 10*3/uL Normal 3.6-10.7 [facility] Comment on above: Performed By: #### B GLU #### [place] [address] [place] [address] No Panel Informationon 08-17 Interpretation and review of laboratory results Abnormal [facility] Test Performed by [facility], [address] [place] [id number] [place] [address] LAB [facility] Interpretation and review of laboratory results Abnormal [facility] Test Performed by [address] [facility] POCT Glucoseon 08-17-2021 Glucose [Mass/Vol] 350 mg/dL High 70 - 100 mg/dL [facility] Comment on above: Caregiver Notified; Test performed by glucose meter. Results may be 10%-15% lower than serum/plasma values. (CLIA ID [id number]) Interpretation and review of laboratory results Abnormal [facility] Test Performed by [address] [facility] Glucose [Mass/Vol] 282 mg/dL High 70 - 100 mg/dL [facility] Comment on above: Test performed by gl ucose meter. Results may be 10%-15% lower than serum/plasma values. (CLIA ID [id number]) Interpretation and review of laboratory results Abnormal [facility] Test Performed by [facility], [address] [place] [id number] [place] [address] LAB [facility] Glucose [Mass/Vol] 205 mg/dL High 70 - 100 mg/dL [facility] Comment on above: Test performed by gl ucose meter. Results may be 10%-15% lower than serum/plasma values. (CLIA ID [id number]) C-REACTIVE PROTEINon 022 CRP [Mass/Vol] 20.3 mg/L High 0.0 - 9.9 mg/L [facility] Comment on above: . C-Reactive Proteinon 01-02-2 022 CRP [Mass/Vol] 20.3 mg/L High 0.0-9.9 [facility] Comment on above: Result Comment: . Performed By: #### B GLU #### [facility] [address] [facility] [place] [address] CBC Auto Differentialon 0 Absolute Baso # 0.0 10*3/uL 0.0 - 0.2 10*3/uL [facility] Absolute Neut # 5.0 10*3/uL 1.8 - 7.0 10*3/uL [facility] Basophils/100 WBC (Bld) 0.4 % 0.0 - 2.0 % [facility] Eosinophils (Bld) [#/Vol] 0.2 10*3/uL 0.0 - 0.5 10*3/uL [facility] Eosinophils/100 WBC (Bld) 3.4 % 1.0 - 6.0 % [facility] Granulocytes/100 WBC (Bld) 69.2 % 40.0 - 80.0 % [facility] Hematocrit (Bld) [Volume fraction] 36.4 % 35.0 - 47.0 % [facility] Hemoglobin.gastrointe stinal spec 1 Ql (Stl) 11.3 g/dL Low 11.7 - 16.0 g/dL [facility] Interpretation and review of laboratory results Abnormal [facility] Lymphocytes (Bld) [#/Vol] 1.3 10*3/uL 1.0 - 4.3 10*3/uL [facility] Lymphocytes/100 WBC (Bld) 17.6 % Low 20.0 - 40.0 % [facility] MCH (RBC) [Entitic mass] 23.7 pg Low 26.0 - 34.0 pg [facility] MCHC (RBC) [Mass/Vol] 30.9 % Low 32.0 - 36.0 % [facility] MCV (RBC) [Entitic vol] 76.6 fL Low 79.0 - 98.0 fL [facility] Monocytes (Bld) [#/Vol] 0.7 10*3/uL 0.0 - 0.8 10*3/uL [facility] Monocytes/100 WBC (Bld) 9.4 % 2.0 - 10.0 % [facility] Platelet distribution width (Bld) [Ratio] 15.3 % High 11.5 - 14.5 % [facility] Platelet mean volume (Bld) [Entitic vol] 8.4 fL 7.4 - 10.4 fL [facility] Platelets (Bld) [#/Vol] 330 10*3/uL 140 - 440 10*3/uL [facility] RBC (Bld) [#/Vol] 4.76 10*6/uL 3.80 - 5.2 0 10*6/uL [facility] WBC (Bld) [#/Vol] 7.2 10*3/uL 3.6 - 10.7 10*3/uL [facility] Test Performed by [facility], [address] [place] [address] [facility] Comp Panel with Mg Reflexon 08-16-2021 Calcium [Mass/Vol] 9.2 mg/dL Normal 8.4-10.4 [facility] Comment on above: Performed By: #### B GLU #### [place] [address] [place], [place] ALP [Catalytic activity/Vol] 123 U/L Normal 38-126 [facility] Comment on above: Performed By: #### B GLU #### [place] [address] [place], [place] ALT [Catalytic activity/Vol] 30 U/L Normal 0-34 [facility] Comment on above: Result Comment: The ALT test is performed by an updated assay method. Please note that the reference intervals have been changed and are now sex specific. Performed By: #### B GLU #### [place] [address] [place], [place] Anion gap [Moles/Vol] 8 mmol/L Normal 3-13 [facility] Comment on above: Performed By: #### B GLU #### [place] [address] [place], [place] AST [Catalytic activity/Vol] 31 U/L Normal 15-46 [facility] Comment on above: Performed By: #### B GLU #### [address] Bilirubin [Mass/Vol] 0.4 mg/dL Normal 0.2-1.3 [facility] Comment on above: Performed By: #### B GLU #### [facility] [address], [place] CO2 [Moles/Vol] 27 mmol/L Normal 22-30 [facility] Comment on above: Performed By: #### B GLU #### [facility] [address], [place] Glucose [Mass/Vol] 194 mg/dL High 70-100 [facility] Comment on above: Performed By: #### B GLU #### [facility] [address], [place] Protein [Mass/Vol] 6.7 g/dL Normal 6.3-8.2 [facility] Comment on above: Performed By: #### B GLU #### [place] [address] [address], [place] Urea nitrogen [Mass/Vol] 19 mg/dL Normal 9-20 [facility] Comment on above: Performed By: #### B GLU #### [facility] [address], [place] Creatinine [Mass/Vol] 0.46 mg/dL Low 0.52-1.25 [facility] Comment on above: Performed By: #### B GLU #### [place] [address] [address], [place] eGFR OTHER > 90.0 Normal >60 [facility] Comment on above: Result Comment: KDIG O guidelines provide the following GFR categories: Stage GFR(ml/min/1.73 m2) Terms G1 >=90 Normal or high G2 60-89 Mildly decreased* G3a 45-59 Mildly to moderately decreased G3b 30-44 Moderately to severely decreased G4 15-29 Severely decreased G5 <15 Kidney failure *Relative to young adult level. In the absence of evidence of kidney damage, neither GFR category G1 nor G2 fulfill the criteria for CKD. The CKD-EPI equation is validated in individuals 18 years of age and older. Currently the best equation for estimating glomerular filtration rate (GFR) from serum creatinine in children is the Bedside Valdes equation. It is less accurate in patients with extremes of muscle mass, restriction of dietary protein, ingestion of creatine, extra-renal metabolism of creatinine, or treatment with medications that affect renal tubular creatinine secretion. Performed By: #### B GLU #### [facility] [address], [place] GFR/1.73 sq M.predicted among blacks MDRD (S/P/Bld) [Vol rate/Area] mL/min/{1.73_m2} Normal >60 [facility] Comment on above: Performed By: #### B GLU #### [facility] [address], [place] Albumin [Mass/Vol] 3.6 g/dL Normal 3.5-5.0 [facility] Comment on above: Performed By: #### B GLU #### [facility] [address], [place] Potassium [Moles/Vol] 3.9 mmol/L Normal 3.5-5.1 [facility] Comment on above: Performed By: #### B GLU #### [facility] [address], [place] Sodium [Moles/Vol] 136 mmol/L Normal 135-145 [facility] Comment on above: Performed By: #### B GLU #### [facility] [address], [place] Chloride [Moles/Vol] 101 mmol/L Normal 98-107 [facility] Comment on above: Performed By: #### B GLU #### [facility] [address], [place] Comprehensive Metabolic Pane l w/ Reflex to MGon 08-16-2021 Albumin [Mass/Vol] 3.6 g/dL 3.5 - 5.0 g/dL [facility]P (Bld) [Catalytic activity/Vol] 123 U/L 38 - 126 U/L [facility] ALT [Catalytic activity/Vol] 30 U/L 0 - 34 U/L [facility] Comment on above: The ALT test is perf ormed by an updated assay method. Please note that the reference intervals have been changed and are now sex specific. Anion gap [Moles/Vol] 8 mmol/L 3 - 13 mmol/L [facility] AST [Catalytic activity/Vol] 31 U/L 15 - 46 U/L [facility] Bilirubin [Mass/Vol] 0.4 mg/dL 0.2 - 1 .3 mg/dL [facility] Calcium [Mass/Vol] 9.2 mg/dL 8.4 - 10. 4 mg/dL [facility] Chloride [Moles/Vol] 101 mmol/L 98 - 10 7 mmol/L [facility] CO2 [Moles/Vol] 27 mmol/L 22 - 30 mmol/L [facility] Creatinine [Mass/Vol] 0.46 mg/dL Low 0.52 - 1.25 mg/dL [facility] EGFR IF NonAfrican Cymraes >90.0 >60 mL/min [facility] Comment on above: KDIGO guidelines pro vide the following GFR categories: Stage GFR(ml/min/1.73 m2) Terms G1 >=90 Normal or high G2 60-89 Mildly decreased* G3a 45-59 Mildly to moderately decreased G3b 30-44 Moderately to severely decreased G4 15-29 Severely decreased G5 <15 Kidney failure *Relative to young adult level. In the absence of evidence of kidney damage, neither GFR category G1 nor G2 fulfill the criteria for CKD. The CKD-EPI equation is validated in individuals 18 years of age and older. Currently the best equation for estimating glomerular filtration rate (GFR) from serum creatinine in children is the Bedside Valdes equation. It is less accurate in patients with extremes of muscle mass, restriction of dietary protein, ingestion of creatine, extra-renal metabolism of creatinine, or treatment with medications that affect renal tubular creatinine secretion. Free PSA/Total PSA [Mass fraction] 6.7 g/dL 6.3 - 8.2 g/dL [facility] GFR/1.73 sq M.predicted among blacks MDRD (S/P/Bld) [Vol rate/Area] mL/min/{1.73_m2} >60 mL/min [facility] Glucose [Mass/Vol] 194 mg/dL High 70 - 100 mg/dL [facility] Potassium [Moles/Vol] 3.9 mmol/L 3.5 - 5.1 mmol/L [facility] Sodium [Moles/Vol] 136 mmol/L 135 - 145 mmol/L [facility] Urea nitrogen (BldV) [Mass/Vol] 19 mg/dL 9 - 20 mg/dL [facility] D-Dimer, Innovanceon 08-16-2 022 D-Dimer, Innovance 1.16 mg/L High <0.19-0.50 [facility] Comment on above: Result Comment: [place] D-Dimer values of <0.50 mg/L FEU can be used in combination with a pre-test probability model (e.g. Well's) to exclude pulmonary embolism (PE) disease, as well as an aid in the diagnosis of deep vein thrombosis (DVT). Performed By: #### B GLU #### [address] [address] D-Dimer, Quantitativeon D-Dimer, Quant 1.16 mg/L High <0.19 - 0.50 [facility] Comment on above: [employer] D-Dimer va lues of <0.50 mg/L FEU can be used in combination with a pre-test probability model (e.g. Well's) to exclude pulmonary embolism (PE) disease, as well as an aid in the diagnosis of deep vein thrombosis (DVT). Interpretation and review of laboratory results Abnormal [facility] Test Performed by [id number] [place] [address] LAB [facility] Glucose,Bedsideon 08-16-2021 Glucose [Mass/Vol] 343 mg/dL High 70-100 [facility] Comment on above: Result Comment: Test performed by glucose meter. Results may be 10%-15% lower than serum/plasma values. (CLIA ID [id number]) Performed By: #### B GLU #### [address] [id number] Glucose [Mass/Vol] 305 mg/dL High 70-100 [facility] Comment on above: Result Comment: Test performed by glucose meter. Results may be 10%-15% lower than serum/plasma values. (CLIA ID [id number]) Performed By: #### B GLU #### [address] [address] Glucose [Mass/Vol] 196 mg/dL High 70-100 [facility] Comment on above: Result Comment: Test performed by glucose meter. Results may be 10%-15% lower than serum/plasma values. (CLIA ID [id number]) Performed By: #### B GLU #### [address] Glucose [Mass/Vol] 169 mg/dL High 70-100 [facility] Comment on above: Result Comment: Test performed by glucose meter. Results may be 10%-15% lower than serum/plasma values. (CLIA ID [id number]) Performed By: #### B GLU #### [facility] [address], [place] Hemogram w/ Autodiffon 08-16 Abs Baso Cnt 0.0 10*3/uL Normal 0.0-0.2 [facility] Comment on above: Performed By: #### B GLU #### [facility] [address], [place] Abs Neutrophile Cnt 5.0 10*3/uL Normal 1.8-7.0 [facility] Comment on above: Performed By: #### B GLU #### [facility] [address] [place], [place] Basophils/100 WBC (Bld) 0.4 % Normal 0.0-2.0 [facility] Comment on above: Performed By: #### B GLU #### [facility] [address] [place], [place] Eosinophils (Bld) [#/Vol] 0.2 10*3/uL Normal 0.0-0.5 [facility] Comment on above: Performed By: #### B GLU #### [facility] [address] [place], [place] Eosinophils/100 WBC (Bld) 3.4 % Normal 1.0-6.0 [facility] Comment on above: Performed By: #### B GLU #### [facility] [address] [place], [place] Erythrocyte distribution width (RBC) [Ratio] 15.3 % High 11.5-14.5 [facility] Comment on above: Performed By: #### B GLU #### [facility] [address] [place], [place] Granulocytes/100 WBC (Bld) 69.2 % Normal 40.0-80.0 [facility] Comment on above: Performed By: #### B GLU #### [facility] [address] [place], [place] Hematocrit (Bld) [Volume fraction] 36.4 % Normal 35.0-47.0 [facility] Comment on above: Performed By: #### B GLU #### [facility] [address] [place], [place] Hemoglobin (Bld) [Mass/Vol] 11.3 g/dL Low 11.7-16.0 [facility] Comment on above: Performed By: #### B GLU #### [facility] [address] [place], [place] Lymphocytes (Bld) [#/Vol] 1.3 10*3/uL Normal 1.0-4.3 [facility] Comment on above: Performed By: #### B GLU #### [place] [address] [address] [place], [place] Lymphocytes/100 WBC (Bld) 17.6 % Low 20.0-40.0 [facility] Comment on above: Performed By: #### B GLU #### [place] [address] [address] [place], [place] MCH (RBC) [Entitic mass] 23.7 pg Low 26.0-34.0 [facility] Comment on above: Performed By: #### B GLU #### [place] [address] [address] [place], [place] MCHC 30.9 % Low 32.0-36.0 [facility] Comment on above: Performed By: #### B GLU #### [place] [address] [address] [place], [place] MCV (RBC) [Entitic vol] 76.6 fL Low 79.0-98.0 [facility] Comment on above: Performed By: #### B GLU #### [place] [address] [address] [place], [place] Monocytes (Bld) [#/Vol] 0.7 10*3/uL Normal 0.0-0.8 [facility] Comment on above: Performed By: #### B GLU #### [address] [place] [address] Monocytes/100 WBC (Bld) 9.4 % Normal 2.0-10.0 [facility] Comment on above: Performed By: #### B GLU #### [address] Platelet mean volume (Bld) [Entitic vol] 8.4 fL Normal 7.4-10.4 [facility] Comment on above: Performed By: #### B GLU #### [address] Platelets (Bld) [#/Vol] 330 10*3/uL Normal 140-440 [facility] Comment on above: Performed By: #### B GLU #### [address] RBC (Bld) [#/Vol] 4.76 10*6/uL Normal 3.80-5.20 [facility] Comment on above: Performed By: #### B GLU #### [address] WBC (Bld) [#/Vol] 7.2 10*3/uL Normal 3.6-10.7 [facility] Comment on above: Performed By: #### B GLU #### [address] No Panel Informationon 08-16 Interpretation and review of laboratory results Abnormal [facility] Test Performed by [facility], [address] [place] [id number] [place] [address] LAB [facility] POCT Glucoseon 08-16-2021 Glucose [Mass/Vol] 343 mg/dL High 70 - 100 mg/dL [facility] Comment on above: Test performed by ucose meter. Results may be 10%-15% lower than serum/plasma values. (CLIA ID [id number]) Interpretation and review of laboratory results Abnormal [facility] Test Performed by [id number] [place] [address] LAB [facility] Glucose [Mass/Vol] 305 mg/dL High 70 - 100 mg/dL [facility] Comment on above: Test performed by gl ucose meter. Results may be 10%-15% lower than serum/plasma values. (CLIA ID [id number]) Interpretation and review of laboratory results Abnormal [facility] Test Performed by [facility], [address] [place] [id number] [facility] Glucose [Mass/Vol] 196 mg/dL High 70 - 100 mg/dL [facility] Comment on above: Test performed by gl ucose meter. Results may be 10%-15% lower than serum/plasma values. (CLIA ID [id number]) Interpretation and review of laboratory results Abnormal [facility] Test Performed by [facility], [address] [place] [id number] [place] [address] LAB [facility] Glucose [Mass/Vol] 169 mg/dL High 70 - 100 mg/dL [facility] Comment on above: Test performed by gl ucose meter. Results may be 10%-15% lower than serum/plasma values. (CLIA ID [id number]) Interpretation and review of laboratory results Abnormal [facility] Test Performed by [facility], [address] [place] [id number] [facility] C-REACTIVE PROTEINon 022 CRP [Mass/Vol] 20.8 mg/L High 0.0 - 9.9 mg/L [facility] Comment on above: . C-Reactive Proteinon 022 CRP [Mass/Vol] 20.8 mg/L High 0.0-9.9 [facility] Comment on above: Result Comment: . Performed By: #### C MP3M, CRP2 ####[facility], [place] Comp Panel with Mg Reflexon 08-15-2021 ALP [Catalytic activity/Vol] 120 U/L Normal 38-126 [facility] Comment on above: Performed By: #### B GLU #### [facility] [address], [place] ALT [Catalytic activity/Vol] 34 U/L Normal 0-34 [facility] Comment on above: Result Comment: The ALT test is performed by an updated assay method. Please note that the reference intervals have been changed and are now sex specific. Performed By: #### B GLU #### [facility] [address] [place], [place] Anion gap [Moles/Vol] 12 mmol/L Normal 3-13 [facility] Comment on above: Performed By: #### B GLU #### [facility] [address] [place], [place] AST [Catalytic activity/Vol] 41 U/L Normal 15-46 [facility] Comment on above: Performed By: #### B GLU #### [facility] [address] [place], [place] Bilirubin [Mass/Vol] 0.6 mg/dL Normal 0.2-1.3 [facility] Comment on above: Performed By: #### B GLU #### [facility] [address] [place], [place] Calcium [Mass/Vol] 8.5 mg/dL Normal 8.4-10.4 [facility] Comment on above: Performed By: #### B GLU #### [facility] [address] [place], [place] CO2 [Moles/Vol] 19 mmol/L Low 22-30 [facility] Comment on above: Performed By: #### B GLU #### [facility] [address] [place], [place] Creatinine [Mass/Vol] 0.44 mg/dL Low 0.52-1.25 [facility] Comment on above: Performed By: #### B GLU #### [facility] [address] [place], [place] eGFR OTHER > 90.0 Normal >60 [facility] Comment on above: Result Comment: KDIG O guidelines provide the following GFR categories: Stage GFR(ml/min/1.73 m2) Terms G1 >=90 Normal or high G2 60-89 Mildly decreased* G3a 45-59 Mildly to moderately decreased G3b 30-44 Moderately to severely decreased G4 15-29 Severely decreased G5 <15 Kidney failure *Relative to young adult level. In the absence of evidence of kidney damage, neither GFR category G1 nor G2 fulfill the criteria for CKD. The CKD-EPI equation is validated in individuals 18 years of age and older. Currently the best equation for estimating glomerular filtration rate (GFR) from serum creatinine in children is the Bedside Valdes equation. It is less accurate in patients with extremes of muscle mass, restriction of dietary protein, ingestion of creatine, extra-renal metabolism of creatinine, or treatment with medications that affect renal tubular creatinine secretion. Performed By: #### B GLU #### [place] [address] [address] [place], [place] GFR/1.73 sq M.predicted among blacks MDRD (S/P/Bld) [Vol rate/Area] mL/min/{1.73_m2} Normal >60 [facility] Comment on above: Performed By: #### B GLU #### [place] [address] [address] [place], [place] Glucose [Mass/Vol] 130 mg/dL High 70-100 [facility] Comment on above: Performed By: #### B GLU #### [place] [address] [address] [place], [place] Protein [Mass/Vol] 6.6 g/dL Normal 6.3-8.2 [facility] Comment on above: Performed By: #### B GLU #### [place] [address] [address] [place], [place] Urea nitrogen [Mass/Vol] 13 mg/dL Normal 9-20 [facility] Comment on above: Performed By: #### B GLU #### [place] [address] [address] [place], [place] Albumin [Mass/Vol] 3.6 g/dL Normal 3.5-5.0 [facility] Comment on above: Performed By: #### B GLU #### [place] [address] [address] [place], [place] Potassium [Moles/Vol] 3.9 mmol/L Normal 3.5-5.1 [facility] Comment on above: Performed By: #### B GLU #### [place] [address] [address] [place], [place] Sodium [Moles/Vol] 136 mmol/L Normal 135-145 [facility] Comment on above: Performed By: #### B GLU #### [facility] [address] [place] [address] Chloride [Moles/Vol] 105 mmol/L Normal 98-107 [facility] Comment on above: Performed By: #### B GLU #### [facility] [address] [place] [address] Comprehensive Metabolic Pane l w/ Reflex to MGon 08-15-2021 Albumin [Mass/Vol] 3.6 g/dL 3.5 - 5.0 g/dL [facility] ALP (Bld) [Catalytic activity/Vol] 120 U/L 38 - 126 U/L [facility] ALT [Catalytic activity/Vol] 34 U/L 0 - 34 U/L [facility] Comment [facility] above: The ALT test is perf ormed by an updated assay method. Please note that the reference intervals have been changed and are now sex specific. Anion gap [Moles/Vol] 12 mmol/L 3 - 13 mmol/L [facility] AST [Catalytic activity/Vol] 41 U/L 15 - 46 U/L [facility] Bilirubin [Mass/Vol] 0.6 mg/dL 0.2 - 1 .3 mg/dL [facility] Calcium [Mass/Vol] 8.5 mg/dL 8.4 - 10. 4 mg/dL [facility] Chloride [Moles/Vol] 105 mmol/L 98 - 10 7 mmol/L [facility] CO2 [Moles/Vol] 19 mmol/L Low 22 - 30 mmol/L [facility] Creatinine [Mass/Vol] 0.44 mg/dL Low 0.52 - 1.25 mg/dL [facility] EGFR IF NonAfrican Cymraes >90.0 >60 mL/min [facility] Comment on above: KDIGO guidelines pro vide the following GFR categories: Stage GFR(ml/min/1.73 m2) Terms G1 >=90 Normal or high G2 60-89 Mildly decreased* G3a 45-59 Mildly to moderately decreased G3b 30-44 Moderately to severely decreased G4 15-29 Severely decreased G5 <15 Kidney failure *Relative to young adult level. In the absence of evidence of kidney damage, neither GFR category G1 nor G2 fulfill the criteria for CKD. The CKD-EPI equation is validated in individuals 18 years of age and older. Currently the best equation for estimating glomerular filtration rate (GFR) from serum creatinine in children is the Bedside Valdes equation. It is less accurate in patients with extremes of muscle mass, restriction of dietary protein, ingestion of creatine, extra-renal metabolism of creatinine, or treatment with medications that affect renal tubular creatinine secretion. Free PSA/Total PSA [Mass fraction] 6.6 g/dL 6.3 - 8.2 g/dL [facility] GFR/1.73 sq M.predicted among blacks MDRD (S/P/Bld) [Vol rate/Area] mL/min/{1.73_m2} >60 mL/min [facility] Glucose [Mass/Vol] 130 mg/dL High 70 - 100 mg/dL [facility] Interpretation and review of laboratory results Abnormal [facility] Potassium [Moles/Vol] 3.9 mmol/L 3.5 - 5.1 mmol/L [facility] Sodium [Moles/Vol] 136 mmol/L 135 - 145 mmol/L [facility] Urea nitrogen (BldV) [Mass/Vol] 13 mg/dL 9 - 20 mg/dL [facility] Test [address]formed [address] Glucose,Bedsideon 08-15-2021 Glucose [Mass/Vol] 285 mg/dL High 70-100 [facility] Comment on above: Result Comment: Test performed by glucose meter. Results may be 10%-15% lower than serum/plasma values. (CLIA ID [id number]) Performed By: #### B GLU #### [address] [address] Glucose [Mass/Vol] 198 mg/dL High 70-100 [facility] Comment on above: Result Comment: Test performed by glucose meter. Results may be 10%-15% lower than serum/plasma values. (CLIA ID [id number]) Performed By: #### B GLU #### [address] [address] Glucose [Mass/Vol] 195 mg/dL High 70-100 [facility] Comment on above: Result Comment: in home caregiver Notified; Test performed by glucose meter. Results may be 10%-15% lower than serum/plasma values. (CLIA ID [id number]) Performed By: #### B GLU #### [place] [address] [place] [address] Glucose [Mass/Vol] 186 mg/dL High 70-100 [facility] Comment on above: Caregiver Notified; Test performed by glucose meter. Results may be 10%-15% lower than serum/plasma values. (CLIA ID [id number]) Result Comment: in home caregiver Notified; Test performed by glucose meter. Results may be 10%-15% lower than serum/plasma values. (CLIA ID [id number]) Performed By: #### B GLU #### [facility] [address] [place] [address] No Panel Informationon 08-15 Interpretation and review of laboratory results Abnormal [facility] Test Performed by [facility], [address] [place] [address] LAB [facility] POCT Glucoseon 08-15-2021 Glucose [Mass/Vol] 285 mg/dL High 70 - 100 mg/dL [facility] Comment on above: Test performed by gl ucose meter. Results may be 10%-15% lower than serum/plasma values. (CLIA ID [id number]) Interpretation and review of laboratory results Abnormal [facility] Test Performed by [facility], [address] [place] [phone] [place] [address] LAB [facility] Glucose [Mass/Vol] 198 mg/dL High 70 - 100 mg/dL [facility] Comment on above: Test performed by gl ucose meter. Results may be 10%-15% lower than serum/plasma values. (CLIA ID [id number]) Interpretation and review of laboratory results Abnormal [facility] Test Performed by [facility], [facility] [place], [place] [id number] [place] [address] LAB [facility] Glucose [Mass/Vol] 195 mg/dL High 70 - 100 mg/dL [facility] Comment on above: Caregiver Notified; Test performed by glucose meter. Results may be 10%-15% lower than serum/plasma values. (CLIA ID [id number]) Interpretation and review of laboratory results Abnormal [facility] Test Performed by [facility], [facility] [place] [address] [facility] C-REACTIVE PROTEINon 021 CRP [Mass/Vol] 27.9 mg/L High 0.0 - 9.9 mg/L [facility] . C-Reactive Proteinon 021 CRP [Mass/Vol] 27.9 mg/L High 0.0-9.9 [facility] Comment on above: Result Comment: . Performed By: #### H EMDF, CMP3M, CRP2, DDI2, PCAL ####[facility] [place] [address] CBC Auto Differentialon 07-17 Absolute Baso # 0.1 10*3/uL 0.0 - 0.2 10*3/uL [facility] Absolute Neut # 5.0 10*3/uL 1.8 - 7.0 10*3/uL [facility] Basophils/100 WBC (Bld) 1.1 % 0.0 - 2.0 % [facility] Eosinophils (Bld) [#/Vol] 0.2 10*3/uL 0.0 - 0.5 10*3/uL [facility] Eosinophils/100 WBC (Bld) 3.1 % 1.0 - 6.0 % [facility] Granulocytes/100 WBC (Bld) 72.3 % 40.0 - 80.0 % [facility] Hematocrit (Bld) [Volume fraction] 38.8 % 35.0 - 47.0 % [facility] Hemoglobin.gastrointe stinal spec 1 Ql (Stl) 12.0 g/dL 11.7 - 16.0 g/dL [facility] Interpretation and review of laboratory results Abnormal [facility] Lymphocytes (Bld) [#/Vol] 1.0 10*3/uL 1.0 - 4.3 10*3/uL [facility] Lymphocytes/100 WBC (Bld) 14.3 % Low 20.0 - 40.0 % [facility] MCH (RBC) [Entitic mass] 24.1 pg Low 26.0 - 34.0 pg [facility] MCHC (RBC) [Mass/Vol] 30.8 % Low 32.0 - 36.0 % [facility] MCV (RBC) [Entitic vol] 78.2 fL Low 79.0 - 98.0 fL [facility] Monocytes (Bld) [#/Vol] 0.6 10*3/uL 0.0 - 0.8 10*3/uL [facility] Monocytes/100 WBC (Bld) 9.2 % 2.0 - 10.0 % [facility] Platelet distribution width (Bld) [Ratio] 15.7 % High 11.5 - 14.5 % [facility] Platelet mean volume (Bld) [Entitic vol] 8.4 fL 7.4 - 10.4 fL [facility] Platelets (Bld) [#/Vol] 270 10*3/uL 140 - 440 10*3/uL [facility] RBC (Bld) [#/Vol] 4.97 10*6/uL 3.80 - 5.2 0 10*6/uL [facility] WBC (Bld) [#/Vol] 6.9 10*3/uL 3.6 - 10.7 10*3/uL [facility] Test Performed by [facility], [address] [place] [id number] [place] [address] LAB [facility] Absolute Baso # 0.1 10*3/uL 0.0 - 0.2 10*3/uL [facility] Absolute Neut # 5.3 10*3/uL 1.8 - 7.0 10*3/uL [facility] Basophils/100 WBC (Bld) 1.0 % 0.0 - 2.0 % [facility] Eosinophils (Bld) [#/Vol] 0.2 10*3/uL 0.0 - 0.5 10*3/uL [facility] Eosinophils/100 WBC (Bld) 3.1 % 1.0 - 6.0 % [facility] Granulocytes/100 WBC (Bld) 72.5 % 40.0 - 80.0 % [facility] Hematocrit (Bld) [Volume fraction] 38.2 % 35.0 - 47.0 % [facility] Hemoglobin.gastrointe stinal spec 1 Ql (Stl) 11.8 g/dL 11.7 - 16.0 g/dL [facility] Interpretation and review of laboratory results Abnormal [facility] Lymphocytes (Bld) [#/Vol] 1.0 10*3/uL 1.0 - 4.3 10*3/uL [facility] Lymphocytes/100 WBC (Bld) 13.7 % Low 20.0 - 40.0 % [facility] MCH (RBC) [Entitic mass] 23.8 pg Low 26.0 - 34.0 pg [facility] MCHC (RBC) [Mass/Vol] 30.7 % Low 32.0 - 36.0 % [facility] MCV (RBC) [Entitic vol] 77.3 fL Low 79.0 - 98.0 fL [facility] Monocytes (Bld) [#/Vol] 0.7 10*3/uL 0.0 - 0.8 10*3/uL [facility] Monocytes/100 WBC (Bld) 9.7 % 2.0 - 10.0 % [facility] Platelet distribution width (Bld) [Ratio] 15.8 % High 11.5 - 14.5 % [facility] Platelet mean volume (Bld) [Entitic vol] 8.1 fL 7.4 - 10.4 fL [facility] Platelets (Bld) [#/Vol] 255 10*3/uL 140 - 440 10*3/uL [facility] RBC (Bld) [#/Vol] 4.94 10*6/uL 3.80 - 5.2 0 10*6/uL [facility] WBC (Bld) [#/Vol] 7.4 10*3/uL 3.6 - 10.7 10*3/uL [facility] Test Performed by [address] LAB [facility] COVID-19on 08-14-2021 Interpretation and review of laboratory results Abnormal [facility] SARS-CoV-2 (COVID-19) RNA CHRIS+probe Ql (Unsp spec) Detected Abnormal Not Detected [facility] Comment on above: DETECTED Expected result: Not Detected _ Method: Real-time, RT-PCR Negative results do not preclude SARS-CoV-2 infection and should not be used as the sole basis for treatment or other patient management decisions. This assay was developed by [employer] and distributed under an Emergency Use Authorization (EUA) granted by the FDA for the qualitative detection of SARS-CoV-2 nucleic acid. Provider and patient fact sheets can be found at https://www.fda.gov/media/291764/download and https://www.fda.gov/media/283110/download. Test Performed by [address] Comp Panel with Mg Reflexon 08-14-2021 ALP [Catalytic activity/Vol] 120 U/L Normal 38-126 [facility] Comment on above: Result Comment: Slig htly hemolysed, interpret with caution. Performed By: #### H EMDF, CMP3M, CRP2, DDI2, PCAL ####[facility] [place] [address] ALT [Catalytic activity/Vol] 41 U/L High 0-34 [facility] Comment on above: Result Comment: The ALT test is performed by an updated assay method. Please note that the reference intervals have been changed and are now sex specific. Performed By: #### H EMDF, CMP3M, CRP2, DDI2, PCAL ####[place] [id number] [facility] [address] Calcium [Mass/Vol] 8.7 mg/dL Normal 8.4-10.4 [facility] Comment on above: Performed By: #### H EMDF, CMP3M, CRP2, DDI2, PCAL ####[place] [id number] [place] [address] Glucose [Mass/Vol] 149 mg/dL High 70-100 [facility] Comment on above: Performed By: #### H EMDF, CMP3M, CRP2, DDI2, PCAL ####[place] [id number] [place] [place] [address] Urea nitrogen [Mass/Vol] 12 mg/dL Normal 9-20 [facility] Comment on above: Performed By: #### H EMDF, CMP3M, CRP2, DDI2, PCAL ####[place] [id number] [place] [place] [address] Anion gap [Moles/Vol] 10 mmol/L Normal 3-13 [facility] Comment on above: Performed By: #### H EMDF, CMP3M, CRP2, DDI2, PCAL ####[place] [id number] [facility] [place] [address] AST [Catalytic activity/Vol] 57 U/L High 15-46 [facility] Comment on above: Result Comment: Slig htly hemolysed, interpret with caution. Performed By: #### H EMDF, CMP3M, CRP2, DDI2, PCAL ####[place] [id number] [place], [place] Bilirubin [Mass/Vol] 0.8 mg/dL Normal 0.2-1.3 [facility] Comment on above: Performed By: #### H EMDF, CMP3M, CRP2, DDI2, PCAL ####[place] [id number] [place], [place] CO2 [Moles/Vol] 25 mmol/L Normal 22-30 [facility] Comment on above: Performed By: #### H EMDF, CMP3M, CRP2, DDI2, PCAL ####[place] [id number] [place], [place] Creatinine [Mass/Vol] 0.50 mg/dL Low 0.52-1.25 [facility] Comment on above: Performed By: #### H EMDF, CMP3M, CRP2, DDI2, PCAL ####[place] [id number] [place], [place] eGFR OTHER > 90.0 Normal >60 [facility] Comment on above: Result Comment: KDIG O guidelines provide the following GFR categories: Stage GFR(ml/min/1.73 m2) Terms G1 >=90 Normal or high G2 60-89 Mildly decreased* G3a 45-59 Mildly to moderately decreased G3b 30-44 Moderately to severely decreased G4 15-29 Severely decreased G5 <15 Kidney failure *Relative to young adult level. In the absence of evidence of kidney damage, neither GFR category G1 nor G2 fulfill the criteria for CKD. The CKD-EPI equation is validated in individuals 18 years of age and older. Currently the best equation for estimating glomerular filtration rate (GFR) from serum creatinine in children is the Bedside Valdes equation. It is less accurate in patients with extremes of muscle mass, restriction of dietary protein, ingestion of creatine, extra-renal metabolism of creatinine, or treatment with medications that affect renal tubular creatinine secretion. Performed By: #### H EMDF, CMP3M, CRP2, DDI2, PCAL ####[place] [id number] [place], [place] GFR/1.73 sq M.predicted among blacks MDRD (S/P/Bld) [Vol rate/Area] mL/min/{1.73_m2} Normal >60 [facility] Comment on above: Performed By: #### H EMDF, CMP3M, CRP2, DDI2, PCAL ####[place] [id number] [place], [place] Protein [Mass/Vol] 7.0 g/dL Normal 6.3-8.2 [facility] Comment on above: Performed By: #### H EMDF, CMP3M, CRP2, DDI2, PCAL ####[place] [id number] [place], [place] Potassium [Moles/Vol] 4.5 mmol/L Normal 3.5-5.1 [facility] Comment on above: Result Comment: Slig htly hemolysed, interpret with caution. Performed By: #### H EMDF, CMP3M, CRP2, DDI2, PCAL ####[place] [id number] [place], [place] Albumin [Mass/Vol] 3.8 g/dL Normal 3.5-5.0 [facility] Comment on above: Performed By: #### H EMDF, CMP3M, CRP2, DDI2, PCAL ####[place] [id number] [place], [place] Chloride [Moles/Vol] 102 mmol/L Normal 98-107 [facility] Comment on above: Performed By: #### H EMDF, CMP3M, CRP2, DDI2, PCAL ####[place] [id number] [place], [place] Sodium [Moles/Vol] 137 mmol/L Normal 135-145 [facility] Comment on above: Performed By: #### H EMDF, CMP3M, CRP2, DDI2, PCAL ####[place] [id number] [place], [place] Comprehensive Metabolic Pane l w/ Reflex to MGon 08-14-2021 Albumin [Mass/Vol] 3.8 g/dL 3.5 - 5.0 g/dL [facility] ALP (Bld) [Catalytic activity/Vol] 120 U/L 38 - 126 U/L [facility] Comment on above: Slightly hemolysed, interpret with caution. ALT [Catalytic activity/Vol] 41 U/L High 0 - 34 U/L [facility] Comment on above: The ALT test is perf ormed by an updated assay method. Please note that the reference intervals have been changed and are now sex specific. Anion gap [Moles/Vol] 10 mmol/L 3 - 13 mmol/L [facility] AST [Catalytic activity/Vol] 57 U/L High 15 - 46 U/L [facility] Comment on above: Slightly hemolysed, interpret with caution. Bilirubin [Mass/Vol] 0.8 mg/dL 0.2 - 1 .3 mg/dL [facility] Calcium [Mass/Vol] 8.7 mg/dL 8.4 - 10. 4 mg/dL [facility] Chloride [Moles/Vol] 102 mmol/L 98 - 10 7 mmol/L [facility] CO2 [Moles/Vol] 25 mmol/L 22 - 30 mmol/L [facility] Creatinine [Mass/Vol] 0.5 mg/dL Low 0.52 - 1.25 mg/dL [facility] EGFR IF NonAfrican Cymraes >90.0 >60 mL/min [facility] Comment on above: KDIGO guidelines pro vide the following GFR categories: Stage GFR(ml/min/1.73 m2) Terms G1 >=90 Normal or high G2 60-89 Mildly decreased* G3a 45-59 Mildly to moderately decreased G3b 30-44 Moderately to severely decreased G4 15-29 Severely decreased G5 <15 Kidney failure *Relative to young adult level. In the absence of evidence of kidney damage, neither GFR category G1 nor G2 fulfill the criteria for CKD. The CKD-EPI equation is validated in individuals 18 years of age and older. Currently the best equation for estimating glomerular filtration rate (GFR) from serum creatinine in children is the Bedside Valdes equation. It is less accurate in patients with extremes of muscle mass, restriction of dietary protein, ingestion of creatine, extra-renal metabolism of creatinine, or treatment with medications that affect renal tubular creatinine secretion. Free PSA/Total PSA [Mass fraction] 7.0 g/dL 6.3 - 8.2 g/dL [facility] GFR/1.73 sq M.predicted among blacks MDRD (S/P/Bld) [Vol rate/Area] mL/min/{1.73_m2} >60 mL/min [facility] Glucose [Mass/Vol] 149 mg/dL High 70 - 100 mg/dL [facility] Potassium [Moles/Vol] 4.5 mmol/L 3.5 - 5.1 mmol/L [facility] Comment on above: Slightly hemolysed, interpret with caution. Sodium [Moles/Vol] 137 mmol/L 135 - 145 mmol/L [facility] Urea nitrogen (BldV) [Mass/Vol] 12 mg/dL 9 - 20 mg/dL [facility] D-Dimer, Innovanceon 021 D-Dimer, Innovance 0.69 mg/L High <0.19-0.50 [facility] Comment on above: Result Comment: [place] D-Dimer values of <0.50 mg/L FEU can be used in combination with a pre-test probability model (e.g. Well's) to exclude pulmonary embolism (PE) disease, as well as an aid in the diagnosis of deep vein thrombosis (DVT). Performed By: #### H EMDF, CMP3M, CRP2, DDI2, PCAL ####[facility] [id number] [place] [address] D-Dimer, Quantitativeon 07-17 D-Dimer, Quant 0.69 mg/L High <0.19 - 0.50 [facility] Comment on above: [place] D-Dimer va lues of <0.50 mg/L FEU can be used in combination with a pre-test probability model (e.g. Well's) to exclude pulmonary embolism (PE) disease, as well as an aid in the diagnosis of deep vein thrombosis (DVT). Interpretation and review of laboratory results Abnormal [facility] Test Performed by [facility], [address] [place] [address] [facility] Glucose,Bedsideon 08-14-2021 Glucose [Mass/Vol] 250 mg/dL High 70-100 [facility] Comment on above: Result Comment: Test performed by glucose meter. Results may be 10%-15% lower than serum/plasma values. (CLIA ID [id number]) Performed By: #### B GLU #### [facility] [address] [place] [address] Glucose [Mass/Vol] 178 mg/dL High 70-100 [facility] Comment on above: Result Comment: Test performed by glucose meter. Results may be 10%-15% lower than serum/plasma values. (CLIA ID [id number]) Performed By: #### B GLU #### [facility] [address] [place] [address] Glucose [Mass/Vol] 177 mg/dL High 70-100 [facility] Comment on above: Result Comment: Test performed by glucose meter. Results may be 10%-15% lower than serum/plasma values. (CLIA ID [id number]) Performed By: #### B GLU #### [address] [address] [address] [place], [place] Glucose [Mass/Vol] 157 mg/dL High 70-100 [facility] Comment on above: Result Comment: Test performed by glucose meter. Results may be 10%-15% lower than serum/plasma values. (CLIA ID [id number]) Performed By: #### B GLU #### [facility] [address], [place] Hemogram w/ Autodiffon 08-14 Abs Baso Cnt 0.1 10*3/uL Normal 0.0-0.2 [facility] Comment on above: Performed By: #### H EMDF, CMP3M, CRP2, DDI2, PCAL ####[id number] [place], [place] Abs Neutrophile Cnt 5.0 10*3/uL Normal 1.8-7.0 [facility] Comment on above: Performed By: #### H EMDF, CMP3M, CRP2, DDI2, PCAL ####[id number] [place], [place] Basophils/100 WBC (Bld) 1.1 % Normal 0.0-2.0 [facility] Comment on above: Performed By: #### H EMDF, CMP3M, CRP2, DDI2, PCAL ####[id number] [place], [place] Eosinophils (Bld) [#/Vol] 0.2 10*3/uL Normal 0.0-0.5 [facility] Comment on above: Performed By: #### H EMDF, CMP3M, CRP2, DDI2, PCAL ####[address] Eosinophils/100 WBC (Bld) 3.1 % Normal 1.0-6.0 [facility] Comment on above: Performed By: #### H EMDF, CMP3M, CRP2, DDI2, PCAL ####[id number] [place], [place] Erythrocyte distribution width (RBC) [Ratio] 15.7 % High 11.5-14.5 [facility] Comment on above: Performed By: #### H EMDF, CMP3M, CRP2, DDI2, PCAL ####[address] Granulocytes/100 WBC (Bld) 72.3 % Normal 40.0-80.0 [facility] Comment on above: Performed By: #### H EMDF, CMP3M, CRP2, DDI2, PCAL ####[id number] [place], [place] Hematocrit (Bld) [Volume fraction] 38.8 % Normal 35.0-47.0 [facility] Comment on above: Performed By: #### H EMDF, CMP3M, CRP2, DDI2, PCAL ####[id number] [place], [place] Hemoglobin (Bld) [Mass/Vol] 12.0 g/dL Normal 11.7-16.0 [facility] Comment on above: Performed By: #### H EMDF, CMP3M, CRP2, DDI2, PCAL ####[address] Lymphocytes (Bld) [#/Vol] 1.0 10*3/uL Normal 1.0-4.3 [facility] Comment on above: Performed By: #### H EMDF, CMP3M, CRP2, DDI2, PCAL ####[address] Lymphocytes/100 WBC (Bld) 14.3 % Low 20.0-40.0 [facility] Comment on above: Performed By: #### H EMDF, CMP3M, CRP2, DDI2, PCAL ####[address] MCH (RBC) [Entitic mass] 24.1 pg Low 26.0-34.0 [facility] Comment on above: Performed By: #### H EMDF, CMP3M, CRP2, DDI2, PCAL ####[address] MCHC 30.8 % Low 32.0-36.0 [facility] Comment on above: Performed By: #### H EMDF, CMP3M, CRP2, DDI2, PCAL ####[address] MCV (RBC) [Entitic vol] 78.2 fL Low 79.0-98.0 [facility] Comment on above: Performed By: #### H EMDF, CMP3M, CRP2, DDI2, PCAL ####[address] Monocytes (Bld) [#/Vol] 0.6 10*3/uL Normal 0.0-0.8 [facility] Comment on above: Performed By: #### H EMDF, CMP3M, CRP2, DDI2, PCAL ####[address] Monocytes/100 WBC (Bld) 9.2 % Normal 2.0-10.0 [facility] Comment on above: Performed By: #### H EMDF, CMP3M, CRP2, DDI2, PCAL ####[id number] [place], [place] Platelet mean volume (Bld) [Entitic vol] 8.4 fL Normal 7.4-10.4 [facility] Comment on above: Performed By: #### H EMDF, CMP3M, CRP2, DDI2, PCAL ####[address] [address] [place], [place] Platelets (Bld) [#/Vol] 270 10*3/uL Normal 140-440 [facility] Comment on above: Performed By: #### H EMDF, CMP3M, CRP2, DDI2, PCAL ####[address] RBC (Bld) [#/Vol] 4.97 10*6/uL Normal 3.80-5.20 [facility] Comment on above: Performed By: #### H EMDF, CMP3M, CRP2, DDI2, PCAL ####[address] WBC (Bld) [#/Vol] 6.9 10*3/uL Normal 3.6-10.7 [facility] Comment on above: Performed By: #### H EMDF, CMP3M, CRP2, DDI2, PCAL ####[address] [address] [place], [place] Abs Baso Cnt 0.1 10*3/uL Normal 0.0-0.2 [facility] Comment on above: Performed By: #### H EMDF ####[address] [place], [place] Abs Neutrophile Cnt 5.3 10*3/uL Normal 1.8-7.0 [facility] Comment on above: Performed By: #### H EMDF ####[address] Basophils/100 WBC (Bld) 1.0 % Normal 0.0-2.0 [facility] Comment on above: Performed By: #### H EMDF ####[id number] [place] [address] Eosinophils (Bld) [#/Vol] 0.2 10*3/uL Normal 0.0-0.5 [facility] Comment on above: Performed By: #### H EMDF ####[address] [place] [address] Eosinophils/100 WBC (Bld) 3.1 % Normal 1.0-6.0 [facility] Comment on above: Performed By: #### H EMDF ####[address] [address] Erythrocyte distribution width (RBC) [Ratio] 15.8 % High 11.5-14.5 [facility] Comment on above: Performed By: #### H EMDF ####[address] [address] Granulocytes/100 WBC (Bld) 72.5 % Normal 40.0-80.0 [facility] Comment on above: Performed By: #### H EMDF ####[address] [address] Hematocrit (Bld) [Volume fraction] 38.2 % Normal 35.0-47.0 [facility] Comment on above: Performed By: #### H EMDF ####[address] [address] Hemoglobin (Bld) [Mass/Vol] 11.8 g/dL Normal 11.7-16.0 [facility] Comment on above: Performed By: #### H EMDF ####[address] [address] Lymphocytes (Bld) [#/Vol] 1.0 10*3/uL Normal 1.0-4.3 [facility] Comment on above: Performed By: #### H EMDF ####[address] [address] Lymphocytes/100 WBC (Bld) 13.7 % Low 20.0-40.0 [facility] Comment on above: Performed By: #### H EMDF ####[id number] [place], [place] MCH (RBC) [Entitic mass] 23.8 pg Low 26.0-34.0 [facility] Comment on above: Performed By: #### H EMDF ####[address] MCHC 30.7 % Low 32.0-36.0 [facility] Comment on above: Performed By: #### H EMDF ####[address] MCV (RBC) [Entitic vol] 77.3 fL Low 79.0-98.0 [facility] Comment on above: Performed By: #### H EMDF ####[address] Monocytes (Bld) [#/Vol] 0.7 10*3/uL Normal 0.0-0.8 [facility] Comment on above: Performed By: #### H EMDF ####[address] Monocytes/100 WBC (Bld) 9.7 % Normal 2.0-10.0 [facility] Comment on above: Performed By: #### H EMDF ####[address] Platelet mean volume (Bld) [Entitic vol] 8.1 fL Normal 7.4-10.4 [facility] Comment on above: Performed By: #### H EMDF ####[address] Platelets (Bld) [#/Vol] 255 10*3/uL Normal 140-440 [facility] Comment on above: Performed By: #### H EMDF ####[address] RBC (Bld) [#/Vol] 4.94 10*6/uL Normal 3.80-5.20 [facility] Comment on above: Performed By: #### H EMDF ####[facility] [place], [place] WBC (Bld) [#/Vol] 7.4 10*3/uL Normal 3.6-10.7 [facility] Comment on above: Performed By: #### H EMDF ####[id number] [place], [place] No Panel Informationon 08-14 Interpretation and review of laboratory results Abnormal [facility] Test Performed by [facility], [facility] [place], [place] [id number] [place] [address] [facility] POCT Glucoseon 08-14-2021 Glucose [Mass/Vol] 250 mg/dL High 70 - 100 mg/dL [facility] Comment on above: Test performed by gl ucose meter. Results may be 10%-15% lower than serum/plasma values. (CLIA ID [id number]) Interpretation and review of laboratory results Abnormal [facility] Test Performed by [facility], [facility] [place], [place] [id number] [place] [address] [facility] Glucose [Mass/Vol] 178 mg/dL High 70 - 100 mg/dL [facility] Comment on above: Test performed by gl ucose meter. Results may be 10%-15% lower than serum/plasma values. (CLIA ID [id number]) Interpretation and review of laboratory results Abnormal [facility] Test Performed by [facility], [address] [place] [id number] [place] [address] [facility] Glucose [Mass/Vol] 177 mg/dL High 70 - 100 mg/dL [facility] Comment on above: Test performed by gl ucose meter. Results may be 10%-15% lower than serum/plasma values. (CLIA ID [id number]) Interpretation and review of laboratory results Abnormal [facility] Test Performed by [facility], [facility] [place], [place] [id number] [place] [address] [facility] Glucose [Mass/Vol] 157 mg/dL High 70 - 100 mg/dL [facility] Comment on above: Test performed by gl ucose meter. Results may be 10%-15% lower than serum/plasma values. (CLIA ID [id number]) Interpretation and review of laboratory results Abnormal [facility] Test Performed by [id number] [place] [address] [facility] Procalcitoninon 08-14-2021 Procalcitonin 0.07 ng/mL Normal 0.00-0.09 [facility] Comment on above: Performed By: #### H EMDF, CMP3M, CRP2, DDI2, PCAL ####[id number] [place], [place] Interpretation See Below [facility] Comment on above: PCT <0.50 = Low risk of severe sepsis and/or septic shock. PCT >2.00 = High risk of severe sepsis and/or septic shock. Procalcitonin 0.07 ng/mL 0.00 - 0.09 ng/mL [facility] Test Performed by [id number] [place] [address] [facility] Interpretation See Below Normal [facility] Comment on above: Result Comment: PCT <0.50 = Low risk of severe sepsis and/or septic shock. PCT >2.00 = High risk of severe sepsis and/or septic shock. Performed By: #### H EMDF, CMP3M, CRP2, DDI2, PCAL ####[id number] [place], [place] [id number] 08-14-2021 SARS-CoV-2 (COVID-19) RNA CHRIS+probe Ql (Unsp spec) SARS-CoV-2 --> Status: F DETECTED Expected result: Not Detected _ Method: Real-time, RT-PCR Negative results do not preclude SARS-CoV-2 infection and should not be used as the sole basis for treatment or other patient management decisions. This assay was developed by [employer] and distributed under an Emergency Use Authorization (EUA) granted by the FDA for the qualitative detection of SARS-CoV-2 nucleic acid. Provider and patient fact sheets can be found at https://www.fda.gov/medi a/612267/download and https://www.fda.gov/medi a/270191/download. Expected result: Not Detected _ Method: Real-time, RT-PCR Negative results do not preclude SARS-CoV-2 infection and should not be used as the sole basis for treatment or other patient management decisions. This assay was developed by [employer] and distributed under an Emergency Use Authorization (EUA) granted by the FDA for the qualitative detection of SARS-CoV-2 nucleic acid. Provider and patient fact sheets can be found at https://www.fda.gov/medi a/399789/download and https://www.fda.gov/medi a/683314/download. Abnormal [facility] Comment on above: Performed By: #### C OVID #### [address] [address] CR Chest Portableon 08-13-20 21 CR Chest Portable Patient Name: THEA ODRMAN Diagnostic Radiology ACCESSION EXAM DATE/TIME PROCEDURE ORDERING PROVIDER [id number] 08/13/2021 07:32 EST CR Chest Portable [id number] HARPAL BUENO CPT code 60866 Reason For Exam (CR Chest Portable) Evaluation of possible pneumothorax seen in earlier CXR today Report Clinical History: Evaluation of possible pneumothorax seen in earlier CXR today Comparison: 08/12/2021 Technique: Single AP radiograph of the chest. Findings: Cardiomediastinal silhouette is normal. Left apical opacity is again seen in the lungs. Patchy bibasilar infiltrates are noted. Right perihilar chest tube seen with no sizable pneumothorax. Impression: 1. No pneumothorax identified. 2. Unchanged bibasilar infiltrates and dense left apical airspace opacity. Report Dictated on Final Dictated: 08/13/2021 10:09 am Dictating Physician: MD PERSON JAMES Signed Date and Time: 08/13/2021 10:11 am Signed by: MD PERSON JAMES Transcribed Date and Time: 08/13/2021 10:09 Normal [facility] Glucose,Bedsideon 08-13-2021 Glucose [Mass/Vol] 223 mg/dL High 70-100 [facility] Comment on above: Result Comment: Test performed by glucose meter. Results may be 10%-15% lower than serum/plasma values. (CLIA ID [id number]) Performed By: #### B GLU #### [address] [place] [address] Glucose [Mass/Vol] 115 mg/dL High 70-100 [facility] Comment on above: Result Comment: Test performed by glucose meter. Results may be 10%-15% lower than serum/plasma values. (CLIA ID [id number]) Performed By: #### B GLU #### [address] [place] [address] Glucose [Mass/Vol] 138 mg/dL High 70-100 [facility] Comment on above: Result Comment: Test performed by glucose meter. Results may be 10%-15% lower than serum/plasma values. (CLIA ID [id number]) Performed By: #### B GLU #### [address] [address] [place] [address] POCT Glucoseon 08-13-2021 Glucose [Mass/Vol] 223 mg/dL High 70 - 100 mg/dL [facility] Comment on above: Test performed by gl ucose meter. Results may be 10%-15% lower than serum/plasma values. (CLIA ID [id number]) Interpretation and review of laboratory results Abnormal [facility] Test Performed by [facility], [address] [place] [id number] [place] [address] [facility] Glucose [Mass/Vol] 115 mg/dL High 70 - 100 mg/dL [facility] Comment on above: Test performed by gl ucose meter. Results may be 10%-15% lower than serum/plasma values. (CLIA ID [id number]) Interpretation and review of laboratory results Abnormal [facility] Test Performed by [facility], [address] [place] [id number] [place] [address] [facility] Glucose [Mass/Vol] 138 mg/dL High 70 - 100 mg/dL [facility] Comment on above: Test performed by gl ucose meter. Results may be 10%-15% lower than serum/plasma values. (CLIA ID [id number]) Interpretation and review of laboratory results Abnormal [facility] Test Performed by [facility], [address] [place] [address] [address] [facility] XR CHEST PORTABLEon 08-13-20 Patient Name: THEA DORMAN Diagnostic Radiology ACCESSION EXAM DATE/TIME PROCEDURE ORDERING PROVIDER [id number] 08/13/2021 07:32 EST CR Chest Portable [id number] -ELAINE, HARPAL CPT code 74666 Reason For Exam (CR Chest Portable) Evaluation of possible pneumothorax seen in earlier CXR today Report Clinical History: Evaluation of possible pneumothorax seen in earlier CXR today Comparison: 08/12/2021 Technique: Single AP radiograph of the chest. Findings: Cardiomediastinal silhouette is normal. Left apical opacity is again seen in the lungs. Patchy bibasilar infiltrates are noted. Right perihilar chest tube seen with no sizable pneumothorax. Impression: 1. No pneumothorax identified. 2. Unchanged bibasilar infiltrates and dense left apical airspace opacity. Report Dictated on --- Final --- Dictated: 08/13/2021 10:09 am Dictating Physician: MD PERSON JAMES Signed Date and Time: 08/13/2021 10:11 am Signed by: MD PERSON JAMES Transcribed Date and Time: 08/13/2021 10:09 [facility] Hari Person MD - 08/13/2021 Patient Name: THEA DORMAN Diagnostic Radiology ACCESSION EXAM DATE/TIME PROCEDURE ORDERING PROVIDER [id number] 08/13/2021 07:32 EST CR Chest Portable [id number] -ELAINEHARPAL CPT code 80504 Reason For Exam (CR Chest Portable) Evaluation of possible pneumothorax seen in earlier CXR today Report Clinical History: Evaluation of possible pneumothorax seen in earlier CXR today Comparison: 08/12/2021 Technique: Single AP radiograph of the chest. Findings: Cardiomediastinal silhouette is normal. Left apical opacity is again seen in the lungs. Patchy bibasilar infiltrates are noted. Right perihilar chest tube seen with no sizable pneumothorax. Impression: 1. No pneumothorax identified. 2. Unchanged bibasilar infiltrates and dense left apical airspace opacity. Report Dictated on --- Final --- Dictated: 08/13/2021 10:09 am Dictating Physician: MD PERSON JAMES Signed Date and Time: 08/13/2021 10:11 am Signed by: MD PERSON JAMES Transcribed Date and Time: 08/13/2021 10:09 [facility] Work Phone: [facility] Work Phone: Radiology Study observation (narrative) [facility] Work Phone: Basic Metabolic Panelon 12-2 Anion gap [Moles/Vol] 8 mmol/L Normal 3-13 [facility] Comment on above: Performed By: #### B GLU #### [address] [address] [address] [place], [place] Calcium [Mass/Vol] 8.3 mg/dL Low 8.4-10.4 [facility] Comment on above: Performed By: #### B GLU #### [address] [address] [address] [place], [place] CO2 [Moles/Vol] 26 mmol/L Normal 22-30 [facility] Comment on above: Performed By: #### B GLU #### [address] [place] [address] [address] [place], [place] Glucose [Mass/Vol] 139 mg/dL High 70-100 [facility] Comment on above: Performed By: #### B GLU #### [address] [place] [address] [address] [place], [place] Urea nitrogen [Mass/Vol] 16 mg/dL Normal 9-20 [facility] Comment on above: Performed By: #### B GLU #### [address] [address] [address] [place], [place] Creatinine [Mass/Vol] 0.69 mg/dL Normal 0.52-1.25 [facility] Comment on above: Performed By: #### B GLU #### [address] [address] [address] [place], [place] eGFR OTHER > 90.0 Normal >60 [facility] Comment on above: Result Comment: KDIG O guidelines provide the following GFR categories: Stage GFR(ml/min/1.73 m2) Terms G1 >=90 Normal or high G2 60-89 Mildly decreased* G3a 45-59 Mildly to moderately decreased G3b 30-44 Moderately to severely decreased G4 15-29 Severely decreased G5 <15 Kidney failure *Relative to young adult level. In the absence of evidence of kidney damage, neither GFR category G1 nor G2 fulfill the criteria for CKD. The CKD-EPI equation is validated in individuals 18 years of age and older. Currently the best equation for estimating glomerular filtration rate (GFR) from serum creatinine in children is the Bedside Valdes equation. It is less accurate in patients with extremes of muscle mass, restriction of dietary protein, ingestion of creatine, extra-renal metabolism of creatinine, or treatment with medications that affect renal tubular creatinine secretion. Performed By: #### B GLU #### [address] [address] [place], [place] GFR/1.73 sq M.predicted among blacks MDRD (S/P/Bld) [Vol rate/Area] mL/min/{1.73_m2} Normal >60 [facility] Comment on above: Performed By: #### B GLU #### [address] [address] [place], [place] Chloride [Moles/Vol] 103 mmol/L Normal 98-107 [facility] Comment on above: Performed By: #### B GLU #### [address] Potassium [Moles/Vol] 4.6 mmol/L Normal 3.5-5.1 [facility] Comment on above: Performed By: #### B GLU #### [address] Sodium [Moles/Vol] 137 mmol/L Normal 135-145 [facility] Comment on above: Performed By: #### B GLU #### [address] Anion gap [Moles/Vol] 8 mmol/L 3 - 13 mmol/L [facility] Calcium [Mass/Vol] 8.3 mg/dL Low 8.4 - 10. 4 mg/dL [facility] Chloride [Moles/Vol] 103 mmol/L 98 - 10 7 mmol/L [facility] CO2 [Moles/Vol] 26 mmol/L 22 - 30 mmol/L [facility] Creatinine [Mass/Vol] 0.69 mg/dL 0.52 - 1.25 mg/dL [facility] EGFR IF NonAfrican Cymraes >90.0 >60 mL/min [facility] Comment on above: KDIGO guidelines pro vide the following GFR categories: Stage GFR(ml/min/1.73 m2) Terms G1 >=90 Normal or high G2 60-89 Mildly decreased* G3a 45-59 Mildly to moderately decreased G3b 30-44 Moderately to severely decreased G4 15-29 Severely decreased G5 <15 Kidney failure *Relative to young adult level. In the absence of evidence of kidney damage, neither GFR category G1 nor G2 fulfill the criteria for CKD. The CKD-EPI equation is validated in individuals 18 years of age and older. Currently the best equation for estimating glomerular filtration rate (GFR) from serum creatinine in children is the Bedside Valdes equation. It is less accurate in patients with extremes of muscle mass, restriction of dietary protein, ingestion of creatine, extra-renal metabolism of creatinine, or treatment with medications that affect renal tubular creatinine secretion. GFR/1.73 sq M.predicted among blacks MDRD (S/P/Bld) [Vol rate/Area] mL/min/{1.73_m2} >60 mL/min [facility] Glucose [Mass/Vol] 139 mg/dL High 70 - 100 mg/dL [facility] Interpretation and review of laboratory results Abnormal [facility] Potassium [Moles/Vol] 4.6 mmol/L 3.5 - 5.1 mmol/L [facility] Sodium [Moles/Vol] 137 mmol/L 135 - 145 mmol/L [facility] Urea nitrogen (BldV) [Mass/Vol] 16 mg/dL 9 - 20 mg/dL [facility] Test Performed by [id number] [place] [address] [facility] CBC auto differentialon 12-2 Absolute Baso # 0.1 10*3/uL 0.0 - 0.2 10*3/uL [facility] Absolute Neut # 13.2 10*3/uL High 1.8 - 7.0 10*3/uL [facility] Basophils/100 WBC (Bld) 0.5 % 0.0 - 2.0 % [facility] Eosinophils (Bld) [#/Vol] 0.0 10*3/uL 0.0 - 0.5 10*3/uL [facility] Eosinophils/100 WBC (Bld) 0.0 % Low 1.0 - 6.0 % [facility] Granulocytes/100 WBC (Bld) 84.8 % High 40.0 - 80.0 % [facility] Hematocrit (Bld) [Volume fraction] 39.3 % 35.0 - 47.0 % [facility] Hemoglobin.gastrointe stinal spec 1 Ql (Stl) 11.8 g/dL 11.7 - 16.0 g/dL [facility] Interpretation and review of laboratory results Abnormal [facility] Lymphocytes (Bld) [#/Vol] 1.3 10*3/uL 1.0 - 4.3 10*3/uL [facility] Lymphocytes/100 WBC (Bld) 8.3 % Low 20.0 - 40.0 % [facility] MCH (RBC) [Entitic mass] 23.8 pg Low 26.0 - 34.0 pg [facility] MCHC (RBC) [Mass/Vol] 30.1 % Low 32.0 - 36.0 % [facility] MCV (RBC) [Entitic vol] 79.1 fL 79.0 - 98.0 fL [facility] Monocytes (Bld) [#/Vol] 1.0 10*3/uL High 0.0 - 0.8 10*3/uL [facility] Monocytes/100 WBC (Bld) 6.4 % 2.0 - 10.0 % [facility] Platelet distribution width (Bld) [Ratio] 15.6 % High 11.5 - 14.5 % [facility] Platelet mean volume (Bld) [Entitic vol] 8.6 fL 7.4 - 10.4 fL [facility] Platelets (Bld) [#/Vol] 291 10*3/uL 140 - 440 10*3/uL [facility] RBC (Bld) [#/Vol] 4.97 10*6/uL 3.80 - 5.2 0 10*6/uL [facility] WBC (Bld) [#/Vol] 15.6 10*3/uL High 3.6 - 10.7 10*3/uL [facility] Test Performed by [facility], [address] [place] [id number] [facility] CR Chest Portableon 08-12-20 CR Chest Portable Patient Name: THEA DORMAN Diagnostic Radiology ACCESSION EXAM DATE/TIME PROCEDURE ORDERING PROVIDER [id number] 08/12/2021 21:12 EST CR Chest Portable [id number] -ELAINEHARPAL GREGORY CPT code 24462 Reason For Exam (CR Chest Portable) Evaluation of possible pneumothorax seen in earlier CXR today Report Clinical History: Evaluation of possible pneumothorax seen in earlier CXR today Comparison: 08/12/2021 at 1653 hours Technique: Single AP radiograph of the chest. FINDINGS/IMPRESSION: Unchanged examination of the chest with probable tiny right apical pneumothorax. Report Dictated on Workstation: ActionFlow Final Dictated: 08/12/2021 9:59 pm Dictating Physician: MD PERSON JAMES Signed Date and Time: 08/12/2021 10:13 pm Signed by: MD PERSON JAMES Transcribed Date and Time: 08/12/2021 9:59 Normal [facility] CR Chest Portable Patient Name: THEA DORMAN Diagnostic Radiology ACCESSION EXAM DATE/TIME PROCEDURE ORDERING PROVIDER [id number] 08/12/2021 17:09 EST CR Chest Portable [id number] -ELAINECRISPIN GREGORYE CPT code 58087 Reason For Exam (CR Chest Portable) Eval for pneumo in setting of chest tube Report Clinical History: Eval for pneumo in setting of chest tube Comparison: 08/12/2021 Technique: Single AP radiograph of the chest. Findings: Right basilar chest tube is again seen. There is question of a small right apical pneumothorax versus right second posterior inferior rib shadow. Patchy left apical and bibasilar pulmonary opacities are again seen. Impression: 1. Right basilar chest tube with question of a small right apical pneumothorax, likely artifact. Recommend follow-up imaging for evaluation. 2. Similar appearance of patchy bibasilar infiltrates and dense left airspace opacity. Report Dictated on Workstation: ActionFlow Final Dictated: 08/12/2021 5:54 pm Dictating Physician: MD PERSON JAMES Signed Date and Time: 08/12/2021 6:00 pm Signed by: MD PEROSN JAMES Transcribed Date and Time: 08/12/2021 5:54 Normal [facility] CR Chest Portable Patient Name: THEA DORMAN Diagnostic Radiology ACCESSION EXAM DATE/TIME PROCEDURE ORDERING PROVIDER [id number] 08/12/2021 07:42 EST CR Chest Portable MD LAWLER ANDREW CPT code 85521 Reason For Exam (CR Chest Portable) patient with chest tube s/p thoracotomy Report EXAM TYPE: RADIOLOGIC EXAMINATION, CHEST, SINGLE VIEW FRONTAL (CXR SINGLE VIEW) EXAM DATE AND TIME: 08/12/2021 7:42 AM EST INDICATION: Respiratory distress COMPARISON: 08/03/2021 TECHNIQUE: A single frontal view of the thorax was obtained and reviewed. Special views: None. IMPRESSION: 1. Lines/Tubes/Devices/Hard curran: Stable projection of right chest tube. Please confirm position/function of devices/catheters clinically. 2. Lungs: Persistent diffuse edema or infiltrate, left apical density possibly atelectasis versus loculated fluid. 3. Pleura: See above No significant pneumothorax. 4. Heart and mediastinum: Limited due to technique. 5. Upper abdomen: No acute process seen. 6. Thorax:No acute bony process Report Dictated on Final Dictated: 08/12/2021 8:39 am Dictating Physician: MD BARRETT JOHN Signed Date and Time: 08/12/2021 8:45 am Signed by: MD BARRETT JOHN Transcribed Date and Time: 08/12/2021 8:39 Normal [facility] Cytology, Non-Gynon 08-12-20 21 Cytology report Cyto stain.thin prep Doc (Cvx/Vag) SEE BELOW [address] [id number] [facility] LABORATORY MEDICINE [address] [place], [place] [id number] FINAL MEDICAL CYTOLOGY REPORT NAME: THEA DORMAN : 1965 56 Y F BILLING NO.: [id number] LOCATION: [place] [address] [place] [facility] 6113 PROCEDURE 08/11/2021 DATE: PHYSICIAN: JOE PENNY MD RECEIVED DATE: 08/11/2021 ATTENDING: JOE PENNY MD REPORT DATE: 08/12/2021 COPIES TO: CLINICAL DATA: DIAGNOSIS NO MALIGNANT CELLS IDENTIFIED. The ThinPrep contains macrophages and scattered small mature lymphocytes. No epithelial lining cells identified. These findings favor benign cyst content, such as a lymphocele. Please correlate with surgical pathology report [id number]. Comment: ADDITIONAL SURGICAL CASES EXIST FOR THIS SAME DATE OF SERVICE SPECIMEN: FINE NEEDLE ASPIRATION , POSTERIOR MEDIASTINAL MASS PROCEDURE(S): FINE NEEDLE ASPIRATION GROSS DESCRIPTION: 25 ml fluid, peach w/cytolyt. Materials Prepared & Examined: Cell Blocks . . . . . . . . . . . . 1 Monolayers . . . . . . . . . . . . 1 SJK Screened by Natacha ROWAN, PhD Printed August 12, 2021 at 3:25:18 PM Disclaimer The following statement applies to all immunohistochemistry, in situ hybridization, molecular studies, and immunofluorescence testing. The use of one or more reagents in the above tests is regulated as an analyte specific reagent (ASR). These tests were developed and their performance characteristics determined by the clinical laboratories of [facility]. They have not been cleared by the US Food and Drug Administration (FDA). The FDA has determined that such clearance or approval is not necessary. All the above immunostains were performed on paraffin embedded tissue. Appropriate positive and negative controls (where applicable) were run in parallel with the patient's specimen; these controls showed expected staining pattern, with acceptable intensity of staining. Immunohistochemical assays have not been validated on decalcified tissues. Results should be interpreted with caution given the raised possibility of false negativity on decalcified specimens. Case reviewed at [facility] [address] [place] [address]. DEPARTMENT OF PATHOLOGY AND LABORATORY MEDICINE [place], [place] [address] [facility] LAB [facility] Glucose,Bedsideon 08-12-2021 Glucose [Mass/Vol] 202 mg/dL High 70-100 [facility] Comment on above: Result Comment: Test performed by glucose meter. Results may be 10%-15% lower than serum/plasma values. (CLIA ID [id number]) Performed By: #### B GLU #### [facility] [address] [place] [address] Glucose [Mass/Vol] 218 mg/dL High 70-100 [facility] Comment on above: Result Comment: Test performed by glucose meter. Results may be 10%-15% lower than serum/plasma values. (CLIA ID [id number]) Performed By: #### B GLU #### [place] [address] [place] [address] Glucose [Mass/Vol] 260 mg/dL High 70-100 [facility] Comment on above: Result Comment: Test performed by glucose meter. Results may be 10%-15% lower than serum/plasma values. (CLIA ID [id number]) Performed By: #### B GLU #### [place] [address] [place], [place] Glucose [Mass/Vol] 196 mg/dL High 70-100 [facility] Comment on above: Result Comment: Test performed by glucose meter. Results may be 10%-15% lower than serum/plasma values. (CLIA ID [id number]) Performed By: #### B GLU #### [facility] [address] [place] [address] Hemogram w/ Autodiffon 08-12 Abs Baso Cnt 0.1 10*3/uL Normal 0.0-0.2 [facility] Comment on above: Performed By: #### B GLU #### [facility] [address], [place] Abs Neutrophile Cnt 13.2 10*3/uL High 1.8-7.0 [facility] Comment on above: Performed By: #### B GLU #### [facility] [address] [place] [address] Basophils/100 WBC (Bld) 0.5 % Normal 0.0-2.0 [facility] Comment on above: Performed By: #### B GLU #### [facility] [address], [place] Eosinophils (Bld) [#/Vol] 0.0 10*3/uL Normal 0.0-0.5 [facility] Comment on above: Performed By: #### B GLU #### [place] [address] [address] [place], [place] Eosinophils/100 WBC (Bld) 0.0 % Low 1.0-6.0 [facility] Comment on above: Performed By: #### B GLU #### [place] [address] [address] [place], [place] Erythrocyte distribution width (RBC) [Ratio] 15.6 % High 11.5-14.5 [facility] Comment on above: Performed By: #### B GLU #### [place] [address] [place] [address] Granulocytes/100 WBC (Bld) 84.8 % High 40.0-80.0 [facility] Comment on above: Performed By: #### B GLU #### [facility] [address], [place] Hematocrit (Bld) [Volume fraction] 39.3 % Normal 35.0-47.0 [facility] Comment on above: Performed By: #### B GLU #### [facility] [address], [place] Hemoglobin (Bld) [Mass/Vol] 11.8 g/dL Normal 11.7-16.0 [facility] Comment on above: Performed By: #### B GLU #### [place] [address] [address] [place], [place] Lymphocytes (Bld) [#/Vol] 1.3 10*3/uL Normal 1.0-4.3 [facility] Comment on above: Performed By: #### B GLU #### [facility] [address], [place] Lymphocytes/100 WBC (Bld) 8.3 % Low 20.0-40.0 [facility] Comment on above: Performed By: #### B GLU #### [facility] [address], [place] MCH (RBC) [Entitic mass] 23.8 pg Low 26.0-34.0 [facility] Comment on above: Performed By: #### B GLU #### [place] [address] [address] [place], [place] MCHC 30.1 % Low 32.0-36.0 [facility] Comment on above: Performed By: #### B GLU #### [place] [address] [address] [place], [place] MCV (RBC) [Entitic vol] 79.1 fL Normal 79.0-98.0 [facility] Comment on above: Performed By: #### B GLU #### [place] [address] [address] [place], [place] Monocytes (Bld) [#/Vol] 1.0 10*3/uL High 0.0-0.8 [facility] Comment on above: Performed By: #### B GLU #### [place] [address] [address] [place], [place] Monocytes/100 WBC (Bld) 6.4 % Normal 2.0-10.0 [facility] Comment on above: Performed By: #### B GLU #### [place] [address] [address] [place], [place] Platelet mean volume (Bld) [Entitic vol] 8.6 fL Normal 7.4-10.4 [facility] Comment on above: Performed By: #### B GLU #### [place] [address] [address] [place], [place] Platelets (Bld) [#/Vol] 291 10*3/uL Normal 140-440 [facility] Comment on above: Performed By: #### B GLU #### [place] [address] [address] [place], [place] RBC (Bld) [#/Vol] 4.97 10*6/uL Normal 3.80-5.20 [facility] Comment on above: Performed By: #### B GLU #### [facility] [address], [place] WBC (Bld) [#/Vol] 15.6 10*3/uL High 3.6-10.7 [facility] Comment on above: Performed By: #### B GLU #### [facility] [address], [place] No Panel Informationon 08-12 Radiology Study observation (narrative) [facility] Work Phone: POCT Glucoseon 08-12-2021 Glucose [Mass/Vol] 202 mg/dL High 70 - 100 mg/dL [facility] Comment on above: Test performed by gl ucose meter. Results may be 10%-15% lower than serum/plasma values. (CLIA ID [id number]) Interpretation and review of laboratory results Abnormal [facility] Test Performed by [facility], [address] [place] [id number] [place] [address] LAB [facility] Glucose [Mass/Vol] 218 mg/dL High 70 - 100 mg/dL [facility] Comment on above: Test performed by gl ucose meter. Results may be 10%-15% lower than serum/plasma values. (CLIA ID [id number]) Interpretation and review of laboratory results Abnormal [facility] Test Performed by [facility], [address] [place] [id number] [place] [address] LAB [facility] Glucose [Mass/Vol] 260 mg/dL High 70 - 100 mg/dL [facility] Comment on above: Test performed by gl ucose meter. Results may be 10%-15% lower than serum/plasma values. (CLIA ID [id number]) Interpretation and review of laboratory results Abnormal [facility] Test Performed by [facility], [address] [place] [id number] [place] [address] LAB [facility] Glucose [Mass/Vol] 196 mg/dL High 70 - 100 mg/dL [facility] Comment on above: Test performed by gl ucose meter. Results may be 10%-15% lower than serum/plasma values. (CLIA ID [id number]) Interpretation and review of laboratory results Abnormal [facility] Test Performed by [address] [address] [facility] LAB [facility] XR CHEST PORTABLEon 08-12-20 Patient Name: THEA DORMAN Diagnostic Radiology ACCESSION EXAM DATE/TIME PROCEDURE ORDERING PROVIDER [id number] 08/12/2021 21:12 EST CR Chest Portable [id number] -ELAINE, HARPAL CPT code 23748 Reason For Exam (CR Chest Portable) Evaluation of possible pneumothorax seen in earlier CXR today Report Clinical History: Evaluation of possible pneumothorax seen in earlier CXR today Comparison: 08/12/2021 at 1653 hours Technique: Single AP radiograph of the chest. FINDINGS/IMPRESSION: Unchanged examination of the chest with probable tiny right apical pneumothorax. Report Dictated on Workstation: ActionFlow --- Final --- Dictated: 08/12/2021 9:59 pm Dictating Physician: MD PERSON JAMES Signed Date and Time: 08/12/2021 10:13 pm Signed by: MD PERSON JAMES Transcribed Date and Time: 08/12/2021 9:59 [facility] Hari Person MD - 08/12/2021 Patient Name: THEA DORMAN Diagnostic Radiology ACCESSION EXAM DATE/TIME PROCEDURE ORDERING PROVIDER [id number] 08/12/2021 21:12 EST CR Chest Portable [id number] -ELAINE, HARPAL CPT code 73673 Reason For Exam (CR Chest Portable) Evaluation of possible pneumothorax seen in earlier CXR today Report Clinical History: Evaluation of possible pneumothorax seen in earlier CXR today Comparison: 08/12/2021 at 1653 hours Technique: Single AP radiograph of the chest. FINDINGS/IMPRESSION: Unchanged examination of the chest with probable tiny right apical pneumothorax. Report Dictated on Workstation: ActionFlow --- Final --- Dictated: 08/12/2021 9:59 pm Dictating Physician: MD PERSON JAMES Signed Date and Time: 08/12/2021 10:13 pm Signed by: MD PERSON JAMES Transcribed Date and Time: 08/12/2021 9:59 [facility] Work Phone: [facility] Work Phone: Patient Name: THEA DORMAN Diagnostic Radiology ACCESSION EXAM DATE/TIME PROCEDURE ORDERING PROVIDER [id number] 08/12/2021 17:09 EST CR Chest Portable [id number] -ELAINE, HARPAL CPT code 56305 Reason For Exam (CR Chest Portable) Eval for pneumo in setting of chest tube Report Clinical History: Eval for pneumo in setting of chest tube Comparison: 08/12/2021 Technique: Single AP radiograph of the chest. Findings: Right basilar chest tube is again seen. There is question of a small right apical pneumothorax versus right second posterior inferior rib shadow. Patchy left apical and bibasilar pulmonary opacities are again seen. Impression: 1. Right basilar chest tube with question of a small right apical pneumothorax, likely artifact. Recommend follow-up imaging for evaluation. 2. Similar appearance of patchy bibasilar infiltrates and dense left airspace opacity. Report Dictated on --- Final --- Dictated: 08/12/2021 5:54 pm Dictating Physician: MD PERSON JAMES Signed Date and Time: 08/12/2021 6:00 pm Signed by: MD PERSON JAMES Transcribed Date and Time: 08/12/2021 5:54 [facility] RAD Hari Person MD - 08/12/2021 Patient Name: THEA DORMAN Diagnostic Radiology ACCESSION EXAM DATE/TIME PROCEDURE ORDERING PROVIDER [id number] 08/12/2021 17:09 EST CR Chest Portable [id number] -ELAINE, HARPAL CPT code 69858 Reason For Exam (CR Chest Portable) Eval for pneumo in setting of chest tube Report Clinical History: Eval for pneumo in setting of chest tube Comparison: 08/12/2021 Technique: Single AP radiograph of the chest. Findings: Right basilar chest tube is again seen. There is question of a small right apical pneumothorax versus right second posterior inferior rib shadow. Patchy left apical and bibasilar pulmonary opacities are again seen. Impression: 1. Right basilar chest tube with question of a small right apical pneumothorax, likely artifact. Recommend follow-up imaging for evaluation. 2. Similar appearance of patchy bibasilar infiltrates and dense left airspace opacity. Report Dictated on --- Final --- Dictated: 08/12/2021 5:54 pm Dictating Physician: MD PERSON JAMES Signed Date and Time: 08/12/2021 6:00 pm Signed by: MD PERSON JAMES Transcribed Date and Time: 08/12/2021 5:54 [facility] Work Phone: [id number] Diagnostic Radiology ACCESSION EXAM DATE/TIME PROCEDURE ORDERING PROVIDER [id number] 08/12/2021 07:42 EST CR Chest Portable MD LAWLER ANDREW CPT code 70173 Reason For Exam (CR Chest Portable) patient with chest tube s/p thoracotomy Report EXAM TYPE: RADIOLOGIC EXAMINATION, CHEST, SINGLE VIEW FRONTAL (CXR SINGLE VIEW) EXAM DATE AND TIME: 08/12/2021 7:42 AM EST INDICATION: Respiratory distress COMPARISON: 08/03/2021 TECHNIQUE: A single frontal view of the thorax was obtained and reviewed. Special views: None. IMPRESSION: 1. Lines/Tubes/Devices/Hard curran: Stable projection of right chest tube. Please confirm position/function of devices/catheters clinically. 2. Lungs: Persistent diffuse edema or infiltrate, left apical density possibly atelectasis versus loculated fluid. 3. Pleura: See above No significant pneumothorax. 4. Heart and mediastinum: Limited due to technique. 5. Upper abdomen: No acute process seen. 6. Thorax:No acute bony process Report Dictated on --- Final --- Dictated: 08/12/2021 8:39 am Dictating Physician: MD BARRETT JOHN Signed Date and Time: 08/12/2021 8:45 am Signed by: MD BARRETT JOHN Transcribed Date and Time: 08/12/2021 8:39 [facility] RAD Saurabh Barrett MD - 08/12/2021 Patient Name: THEA DORMAN Diagnostic Radiology ACCESSION EXAM DATE/TIME PROCEDURE ORDERING PROVIDER [id number] 08/12/2021 07:42 EST CR Chest Portable MD LAWLER ANDREW CPT code 95108 Reason For Exam (CR Chest Portable) patient with chest tube s/p thoracotomy Report EXAM TYPE: RADIOLOGIC EXAMINATION, CHEST, SINGLE VIEW FRONTAL (CXR SINGLE VIEW) EXAM DATE AND TIME: 08/12/2021 7:42 AM EST INDICATION: Respiratory distress COMPARISON: 08/03/2021 TECHNIQUE: A single frontal view of the thorax was obtained and reviewed. Special views: None. IMPRESSION: 1. Lines/Tubes/Devices/Hard curran: Stable projection of right chest tube. Please confirm position/function of devices/catheters clinically. 2. Lungs: Persistent diffuse edema or infiltrate, left apical density possibly atelectasis versus loculated fluid. 3. Pleura: See above No significant pneumothorax. 4. Heart and mediastinum: Limited due to technique. 5. Upper abdomen: No acute process seen. 6. Thorax:No acute bony process Report Dictated on --- Final --- Dictated: 08/12/2021 8:39 am Dictating Physician: MD BARRETT JOHN Signed Date and Time: 08/12/2021 8:45 am Signed by: MD BARRETT JOHN Transcribed Date and Time: 08/12/2021 8:39 [facility] Work Phone: XR CHEST PORTABLEOrdered By: Hari Person on 08-12-2021 [facility] Work Phone: XR CHEST PORTABLEOrdered By: Saurabh Barrett on 08-12-2021 [facility] Work Phone: CR Chest Portableon 08-11-20 21 CR Chest Portable Patient Name: THEA DORMAN Diagnostic Radiology ACCESSION EXAM DATE/TIME PROCEDURE ORDERING PROVIDER [id number] 08/11/2021 13:10 EST CR Chest Portable MD LAWLER ANDREW CPT code 47243 Reason For Exam (CR Chest Portable) s/p thoracotomy Report PORTABLE CHEST CLINICAL INDICATION: Status post thoracotomy. COMPARISON: None. TECHNIQUE: A single frontal view of thorax was obtained and reviewed. IMPRESSION: 1. Lines/ tubes/ devices: Right-sided chest tube is directed toward the right hilum. 2. Lungs and Pleura: There is slight elevation of left hemidiaphragm. Left apical pleural thickening. There is left upper lobe streaky densities which may represent subsegmental atelectasis. No infiltrate or mass. No pneumothorax or pleural effusion. 3. Heart and mediastinum: Normal cardiomediastinal margin. 4. Bones: Thoracic degenerative spondylosis. Moderate-sized hiatal hernia. Report Dictated on Final Dictated: 08/11/2021 1:08 pm Dictating Physician: GONZALO CORTEZ DO, I Signed Date and Time: 08/11/2021 1:09 pm Signed by: GONZALO CORTEZ DO, I Transcribed Date and Time: 08/11/2021 1:08 Normal [facility] Glucose,Bedsideon 08-11-2021 Glucose [Mass/Vol] 209 mg/dL High 70-100 [facility] Comment on above: Result Comment: Test performed by glucose meter. Results may be 10%-15% lower than serum/plasma values. (CLIA ID [id number]) Performed By: #### B GLU #### [facility] [address] [place] [address] Glucose [Mass/Vol] 201 mg/dL High 70-100 [facility] Comment on above: Result Comment: Test performed by glucose meter. Results may be 10%-15% lower than serum/plasma values. (CLIA ID [id number]) Performed By: #### B GLU #### [facility] [address] [place] [address] Glucose [Mass/Vol] 235 mg/dL High 70-100 [facility] Comment on above: Result Comment: Test performed by glucose meter. Results may be 10%-15% lower than serum/plasma values. (CLIA ID [id number]) Performed By: #### B GLU #### [facility] [address] [place] [address] Glucose,BedsideOrdered By: Rajiv Olvera on 08-11-2021 Glucose [Mass/Vol] 218 mg/dL High 70-100 [facility] Work Phone: Comment on above: Test performed by gl ucose meter. Results may be 10%-15% lower than serum/plasma values. (CLIA ID [id number]) Result Comment: Test performed by glucose meter. Results may be 10%-15% lower than serum/plasma values. (CLIA ID [id number]) Performed By: #### B GLU #### [facility] [address] [place] [id number] Medical Cytologyon 1 Medical Cytology [facility]21-947 [facility] LABORATORY MEDICINE [address] [place], [place] [id number] FINAL MEDICAL CYTOLOGY REPORT NAME: THEA DORMAN : 1965 56 Y F BILLING NO.: [id number] LOCATION: [place] [address] [place] PROCEDURE 08/11/2021 01 DATE: PHYSICIAN: JOE PENNY MD RECEIVED DATE: 08/11/2021 ATTENDING: JOE PENNY MD REPORT DATE: 08/12/2021 COPIES TO: CLINICAL DATA: DIAGNOSIS NO MALIGNANT CELLS IDENTIFIED. The ThinPrep contains macrophages and scattered small mature lymphocytes. No epithelial lining cells identified. These findings favor benign cyst content, such as a lymphocele. Please correlate with surgical pathology report [id number]. Comment: ADDITIONAL SURGICAL CASES EXIST FOR THIS SAME DATE OF SERVICE SPECIMEN: FINE NEEDLE ASPIRATION , POSTERIOR MEDIASTINAL MASS PROCEDURE(S): FINE NEEDLE ASPIRATION GROSS DESCRIPTION: 25 ml fluid, peach w/cytolyt. Materials Prepared & Examined: Cell Blocks . . . . . . . . . . . . 1 Monolayers . . . . . . . . . . . . 1 SJK Screened by Natacha ROWAN, PhD Printed August 12, 2021 at 3:25:18 PM Disclaimer The following statement applies to all immunohistochemistry, in situ hybridization, molecular studies, and immunofluorescence testing. The use of one or more reagents in the above tests is regulated as an analyte specific reagent (ASR). These tests were developed and their performance characteristics determined by the clinical laboratories of [facility]. They have not been cleared by the US Food and Drug Administration (FDA). The FDA has determined that such clearance or approval is not necessary. All the above immunostains were performed on paraffin embedded tissue. Appropriate positive and negative controls (where applicable) were run in parallel with the patient's specimen; these controls showed expected staining pattern, with acceptable intensity of staining. Immunohistochemical assays have not been validated on decalcified tissues. Results should be interpreted with caution given the raised possibility of false negativity on decalcified specimens. Case reviewed at [address] [address]. DEPARTMENT OF PATHOLOGY AND LABORATORY MEDICINE [place], [place] [address] [email or web address] Normal [facility] No Panel Informationon 08-11 Interpretation and review of laboratory results Abnormal [facility] Test Performed by [facility], [address] [place] [id number] [place] [address] LAB [facility] [facility] Op Note[facility] 08-11-2021 Op Note PATIENT: VIANNEY DORMAN ADMISSION DATE: 08/11/2021 SURGERY DATE: 08/11/2021 DATE OF : 1965 AGE: 56 ADMITTING PHYSICIAN: Joe Penny MD ATTENDING PHYSICIAN: Joe Penny MD DICTATING PHYSICIAN: Joe Penny MD OPERATIVE RECORD PRIMARY CARE PHYSICIAN: Anjana Salinas M.D. Procedure: RIGHT MINI THORACOTOMY, PARTIAL RESECTION OF POSTERIOR MEDIASTINAL MASS. Preoperative Diagnosis: Posterior mediastinal mass. Postoperative Diagnosis: Posterior mediastinal mass, pathology pending. Anesthesia: General endotracheal. Complications: None. Indications for Procedure: The patient is a 56-year-old female who was referred with the finding of a cystic right-sided posterior mediastinal mass adjacent to the esophagus. Biopsies were obtained, which showed atypical cells and the patient was referred for diagnosis. Description of Procedure: The patient was positioned on the operating table in supine position and general endotracheal anesthesia was induced with a double-lumen ET tube in place. The patient was repositioned in the left lateral decubitus position for access to the right chest, which was prepped and draped in usual sterile fashion. Three port sites were developed and the mediastinal mass was visualized. Unfortunately, the patient had profound hypoxic episodes requiring inflation of the right lung approximately every 1 minute. The case was impossible to perform with a VATS approach based upon this unfortunate lung concern and I converted to a mini thoracotomy, which allowed us to address the lung inflation problem much simpler than a VATS approach. The mass was extrapleural. The lung was adherent to this area. Esophagus was identified medially and protected. An NG tube had been placed to prevent breach into the esophagus. Approximately 3 pores of the mass was encircled using the cautery down to a stalk area toward the diaphragm in the posterior mediastinum along the spine. There was a fatty material within the mass as well as a serous cystic fluid. The fluid was submitted for cytology and most of the mass was excised. The differential diagnosis certainly includes an esophageal duplication cyst, paraesophageal hernia among other mediastinal tumors in this location. There was not a clear hernia defect in the diaphragm at this level that I could discern separate from the esophageal hiatus. I elected not to disrupt this entire area, but rather performed the resection of most of the mass at this point and submitted for final pathology. A 24-Greenlandic Kapil drain was left in the chest cavity through the most anterior port site. The other separate port site was closed with Vicryl and Monocryl by closing the ribs with #2 Vicryl in interrupted fashion. Soft tissues were closed with Vicryl and the skin with Monocryl in a subcuticular fashion and Dermabond dressing applied. The patient was transferred stable and extubated to the recovery room. Diskriter Job ID: [id number] Joe Penny MD DOD:08/11/2021 12:05 P KLM/aleksey DOT:08/11/2021 01:43 P Job Number: [id number] Document Number: [id number] cc: Joe Penny MD [facility] [address] [place] [address] [address] [facility] [address] Anjana Salinas MD [facility] [address] [facility] [address] Normal [facility] POCT Glucoseon 08-11-2021 Glucose [Mass/Vol] 209 mg/dL High 70 - 100 mg/dL [facility] Comment on above: Test performed by gl ucose meter. Results may be 10%-15% lower than serum/plasma values. (CLIA ID [id number]) Interpretation and review of laboratory results Abnormal [facility] Test Performed by [facility], [address] [place] [address] LAB [facility] Glucose [Mass/Vol] 201 mg/dL High 70 - 100 mg/dL [facility] Comment on above: Test performed by gl ucose meter. Results may be 10%-15% lower than serum/plasma values. (CLIA ID [id number]) Interpretation and review of laboratory results Abnormal [facility] Test Performed by [facility], [address] [place] [address] LAB [facility] Glucose [Mass/Vol] 235 mg/dL High 70 - 100 mg/dL [facility] Comment on above: Test performed by gl ucose meter. Results may be 10%-15% lower than serum/plasma values. (CLIA ID [id number]) Surgical Pathologyon 021 Surgical Pathology [id number] [facility] PATHOLOGY AND LABORATORY MEDICINE [address] [place], [place] [id number] FINAL SURGICAL PATHOLOGY REPORT NAME: THEA DORMAN : 1965 56 Y Simone ACE NO.: [id number] LOCATION: [facility] [id number] PROCEDURE 08/11/2021 DATE: SURGEON: JOE PENNY MD RECEIVED 08/11/2021 DATE: ATTENDING: MONSE MILIAN DO REPORT DATE: 08/28/2021 COPIES TO: DIAGNOSIS: POSTERIOR MEDIASTINAL MASS, EXCISION - UNREMARKABLE FIBROFATTY AND THYMIC TISSUE. SMT/SMT Intradepartmental Consultation: JANAE STEWART M.D.; Signature> S BRONWYN VOGT M.D. CLINICAL INFORMATION: R22.2 SPECIMEN: MASS - LARGE, EXCISION GROSS DESCRIPTION: Received in formalin labeled posterior mediastinal mass is an irregular, lobulated, yellow-hernández tissue segment measuring 4 x 2.5 x 1.5 cm. One side of the specimen is smooth and membranous, pink-moy while the other side is lobulated and yellow-hernández. Specimen is not oriented. The smooth membranous surface is painted orange. Upon serial sectioning the specimen cut surfaces are lobulated and yellow-hernández. No discrete areas of nodularity are identified. The specimen is sectioned and entirely submitted in six cassettes. JCK/JAF Disclaimer: The following statement applies to all immunohistochemistry, in situ hybridization, molecular studies, and immunofluorescence testing. The use of one or more reagents in the above tests is regulated as an analyte specific reagent (ASR). These tests were developed and their performance characteristics determined by the clinical laboratories of [facility]. They have not been cleared by the US Food and Drug Administration (FDA). The FDA has determined that such clearance or approval is not necessary. All the above immunostains were performed on paraffin embedded tissue. Appropriate positive and negative controls (where applicable) were run in parallel with the patient's specimen; these controls showed expected staining pattern, with acceptable intensity of staining. Immunohistochemical assays have not been validated on decalcified tissues. Results should be interpreted with caution given the raised possibility of false negativity on decalcified specimens. Professional Performing Location: [place] [address]. DEPARTMENT OF PATHOLOGY AND LABORATORY MEDICINE [place], [place] [address] [email or web address] [facility] XR CHEST PORTABLEon 08-11-20 Patient Name: THEA DORMAN Diagnostic Radiology ACCESSION EXAM DATE/TIME PROCEDURE ORDERING PROVIDER [id number] 08/11/2021 13:10 EST CR Chest Portable MD LAWLER ANDREW CPT code 57249 Reason For Exam (CR Chest Portable) s/p thoracotomy Report PORTABLE CHEST CLINICAL INDICATION: Status post thoracotomy. COMPARISON: None. TECHNIQUE: A single frontal view of thorax was obtained and reviewed. IMPRESSION: 1. Lines/ tubes/ devices: Right-sided chest tube is directed toward the right hilum. 2. Lungs and Pleura: There is slight elevation of left hemidiaphragm. Left apical pleural thickening. There is left upper lobe streaky densities which may represent subsegmental atelectasis. No infiltrate or mass. No pneumothorax or pleural effusion. 3. Heart and mediastinum: Normal cardiomediastinal margin. 4. Bones: Thoracic degenerative spondylosis. Moderate-sized hiatal hernia. Report Dictated on --- Final --- Dictated: 08/11/2021 1:08 pm Dictating Physician: GONZALO CORTEZ DO, I Signed Date and Time: 08/11/2021 1:09 pm Signed by: GONZALO CORTEZ DO, I Transcribed Date and Time: 08/11/2021 1:08 [facility] - 08/11/2021 Patient Name: THEA DORMAN Diagnostic Radiology ACCESSION EXAM DATE/TIME PROCEDURE ORDERING PROVIDER [id number] 08/11/2021 13:10 EST CR Chest Portable MD LAWLER ANDREW CPT code 07796 Reason For Exam (CR Chest Portable) s/p thoracotomy Report PORTABLE CHEST CLINICAL INDICATION: Status post thoracotomy. COMPARISON: None. TECHNIQUE: A single frontal view of thorax was obtained and reviewed. IMPRESSION: 1. Lines/ tubes/ devices: Right-sided chest tube is directed toward the right hilum. 2. Lungs and Pleura: There is slight elevation of left hemidiaphragm. Left apical pleural thickening. There is left upper lobe streaky densities which may represent subsegmental atelectasis. No infiltrate or mass. No pneumothorax or pleural effusion. 3. Heart and mediastinum: Normal cardiomediastinal margin. 4. Bones: Thoracic degenerative spondylosis. Moderate-sized hiatal hernia. Report Dictated on --- Final --- Dictated: 08/11/2021 1:08 pm Dictating Physician: GONZALO CORTEZ DO, I Signed Date and Time: 08/11/2021 1:09 pm Signed by: GONZALO CORTEZ DO, I Transcribed Date and Time: 08/11/2021 1:08 [facility] Work Phone: Radiology Study observation (narrative) [facility] Work Phone: XR CHEST PORTABLEOrdered By: Gonzalo Cortez on 08-11-2021 [facility] Work Phone: CR Chest PA/LATon 08-06-2021 CR Chest PA/LAT [facility]: [id number] Diagnostic Radiology ACCESSION EXAM DATE/TIME PROCEDURE ORDERING PROVIDER [id number] 08/06/2021 12:36 EST CR Chest PA and LAT KAY TURCIOS, TAWANNA Breen CPT code 79022 Reason For Exam (CR Chest PA and LAT) preoperative evaluation Report CLINICAL INDICATION: Preop Frontal and lateral plain films of the chest were obtained. COMPARISON: 10/17/2019 FINDINGS: The cardiac silhouette is within normal limits. No focal consolidation is seen within the lungs. No pleural effusion or pneumothorax is identified. IMPRESSION: No acute cardiopulmonary disease. Report Dictated on Final Dictated: 08/06/2021 6:10 pm Dictating Physician: MD WOODY LAURA Signed Date and Time: 08/06/2021 6:11 pm Signed by: MD WOODY LAURA Transcribed Date and Time: 08/06/2021 6:10 Normal [facility] Comp Metabolic Panelon 08-06 ALP [Catalytic activity/Vol] 175 U/L High 38-126 [facility] Comment on above: Performed By: #### B GLU #### [place] [address] [address], [place] ALT [Catalytic activity/Vol] 22 U/L Normal 0-34 [facility] Comment on above: Result Comment: The ALT test is performed by an updated assay method. Please note that the reference intervals have been changed and are now sex specific. Performed By: #### B GLU #### [facility] [address], [place] Anion gap [Moles/Vol] 12 mmol/L Normal 3-13 [facility] Comment on above: Performed By: #### B GLU #### [facility] [address], [place] AST [Catalytic activity/Vol] 30 U/L Normal 15-46 [facility] Comment on above: Performed By: #### B GLU #### [facility] [address], [place] Bilirubin [Mass/Vol] 0.6 mg/dL Normal 0.2-1.3 [facility] Comment on above: Performed By: #### B GLU #### [facility] [address], [place] Calcium [Mass/Vol] 9.5 mg/dL Normal 8.4-10.4 [facility] Comment on above: Performed By: #### B GLU #### [facility] [address], [place] CO2 [Moles/Vol] 23 mmol/L Normal 22-30 [facility] Comment on above: Performed By: #### B GLU #### [facility] [address], [place] Creatinine [Mass/Vol] 0.52 mg/dL Normal 0.52-1.25 [facility] Comment on above: Performed By: #### B GLU #### [facility] [address], [place] eGFR OTHER > 90.0 Normal >60 [facility] Comment on above: Result Comment: KDIG O guidelines provide the following GFR categories: Stage GFR(ml/min/1.73 m2) Terms G1 >=90 Normal or high G2 60-89 Mildly decreased* G3a 45-59 Mildly to moderately decreased G3b 30-44 Moderately to severely decreased G4 15-29 Severely decreased G5 <15 Kidney failure *Relative to young adult level. In the absence of evidence of kidney damage, neither GFR category G1 nor G2 fulfill the criteria for CKD. The CKD-EPI equation is validated in individuals 18 years of age and older. Currently the best equation for estimating glomerular filtration rate (GFR) from serum creatinine in children is the Bedside Valdes equation. It is less accurate in patients with extremes of muscle mass, restriction of dietary protein, ingestion of creatine, extra-renal metabolism of creatinine, or treatment with medications that affect renal tubular creatinine secretion. Performed By: #### B GLU #### [facility] [address], [place] GFR/1.73 sq M.predicted among blacks MDRD (S/P/Bld) [Vol rate/Area] mL/min/{1.73_m2} Normal >60 [facility] Comment on above: Performed By: #### B GLU #### [facility] [address], [place] Glucose [Mass/Vol] 208 mg/dL High 70-100 [facility] Comment on above: Performed By: #### B GLU #### [place] [address] [address], [place] Protein [Mass/Vol] 7.6 g/dL Normal 6.3-8.2 [facility] Comment on above: Performed By: #### B GLU #### [place] [address] [address], [place] Urea nitrogen [Mass/Vol] 13 mg/dL Normal 9-20 [facility] Comment on above: Performed By: #### B GLU #### [place] [address] [address], [place] Albumin [Mass/Vol] 4.4 g/dL Normal 3.5-5.0 [facility] Comment on above: Performed By: #### B GLU #### [place] [address] [address], [place] Potassium [Moles/Vol] 4.1 mmol/L Normal 3.5-5.1 [facility] Comment on above: Performed By: #### B GLU #### [place] [address] [address], [place] Sodium [Moles/Vol] 137 mmol/L Normal 135-145 [facility] Comment on above: Performed By: #### B GLU #### [place] [address] [address], [place] Chloride [Moles/Vol] 102 mmol/L Normal 98-107 [facility] Comment on above: Performed By: #### B GLU #### [place] [address] [address], [place] Hemogram w/ Autodiffon 08-06 Abs Baso Cnt 0.1 10*3/uL Normal 0.0-0.2 [facility] Comment on above: Performed By: #### B GLU #### [place] [address] [address], [place] Abs Neutrophile Cnt 6.1 10*3/uL Normal 1.8-7.0 [facility] Comment on above: Performed By: #### B GLU #### [place] [address] [address], [place] Basophils/100 WBC (Bld) 0.7 % Normal 0.0-2.0 [facility] Comment on above: Performed By: #### B GLU #### [place] [address] [address], [place] Eosinophils (Bld) [#/Vol] 0.1 10*3/uL Normal 0.0-0.5 [facility] Comment on above: Performed By: #### B GLU #### [place] [address] [address], [place] Eosinophils/100 WBC (Bld) 1.6 % Normal 1.0-6.0 [facility] Comment on above: Performed By: #### B GLU #### [place] [address] [address], [place] Erythrocyte distribution width (RBC) [Ratio] 16.0 % High 11.5-14.5 [facility] Comment on above: Performed By: #### B GLU #### [place] [address] [address], [place] Granulocytes/100 WBC (Bld) 70.2 % Normal 40.0-80.0 [facility] Comment on above: Performed By: #### B GLU #### [place] [address] [address], [place] Hematocrit (Bld) [Volume fraction] 40.5 % Normal 35.0-47.0 [facility] Comment on above: Performed By: #### B GLU #### [place] [address] [address], [place] Hemoglobin (Bld) [Mass/Vol] 12.7 g/dL Normal 11.7-16.0 [facility] Comment on above: Performed By: #### B GLU #### [place] [address] [address], [place] Lymphocytes (Bld) [#/Vol] 1.8 10*3/uL Normal 1.0-4.3 [facility] Comment on above: Performed By: #### B GLU #### [facility] [address], [place] Lymphocytes/100 WBC (Bld) 20.1 % Normal 20.0-40.0 [facility] Comment on above: Performed By: #### B GLU #### [facility] [address], [place] MCH (RBC) [Entitic mass] 24.8 pg Low 26.0-34.0 [facility] Comment on above: Performed By: #### B GLU #### [facility] [address], [place] MCHC 31.4 % Low 32.0-36.0 [facility] Comment on above: Performed By: #### B GLU #### [place] [address] [address], [place] MCV (RBC) [Entitic vol] 79.0 fL Normal 79.0-98.0 [facility] Comment on above: Performed By: #### B GLU #### [facility] [address], [place] Monocytes (Bld) [#/Vol] 0.6 10*3/uL Normal 0.0-0.8 [facility] Comment on above: Performed By: #### B GLU #### [facility] [address], [place] Monocytes/100 WBC (Bld) 7.4 % Normal 2.0-10.0 [facility] Comment on above: Performed By: #### B GLU #### [facility] [address], [place] Platelet mean volume (Bld) [Entitic vol] 8.4 fL Normal 7.4-10.4 [facility] Comment on above: Performed By: #### B GLU #### [facility] [address], [place] Platelets (Bld) [#/Vol] 195 10*3/uL Normal 140-440 [facility] Comment on above: Performed By: #### B GLU #### [facility] [address], [place] RBC (Bld) [#/Vol] 5.13 10*6/uL Normal 3.80-5.20 [facility] Comment on above: Performed By: #### B GLU #### [facility] [address], [place] WBC (Bld) [#/Vol] 8.8 10*3/uL Normal 3.6-10.7 [facility] Comment on above: Performed By: #### B GLU #### [facility] [address], [place] Magnesiumon 08-06-2021 Magnesium [Mass/Vol] 2.0 mg/dL Normal 1.6-2.3 [facility] Comment on above: Performed By: #### B GLU #### [facility] [address], [place] [id number] 08-06-2021 SARS-CoV-2 (COVID-19) RNA CHRIS+probe Ql (Unsp spec) SARS-CoV-2 --> Status: F Not Detected. Expected result: Not Detected _ Method: Real-time, RT-PCR Negative results do not preclude SARS-CoV-2 infection and should not be used as the sole basis for treatment or other patient management decisions. This assay was developed by [employer] and distributed under an Emergency Use Authorization (EUA) granted by the FDA for the qualitative detection of SARS-CoV-2 nucleic acid. Provider and patient fact sheets can be found at https://www.fda.gov/medi a/538081/download and https://www.fda.gov/medi a/380861/download. Expected result: Not Detected _ Method: Real-time, RT-PCR Negative results do not preclude SARS-CoV-2 infection and should not be used as the sole basis for treatment or other patient management decisions. This assay was developed by [employer] and distributed under an Emergency Use Authorization (EUA) granted by the FDA for the qualitative detection of SARS-CoV-2 nucleic acid. Provider and patient fact sheets can be found at https://www.fda.gov/medi a/287885/download and https://www.fda.gov/medi a/452926/download. Normal [facility] Comment on above: Performed By: #### B GLU #### [address] [place] [address] TS GELon 08-06-2021 TS GEL ABO Group: O Rh, Gel: POS Antibody Screen Gel: NEG Normal [facility] Comment on above: Performed By: #### T SGL #### [facility] CT Chest w/ Contraston 06-23 CT Chest w/ Contrast Patient Name: THEA DORMAN Computed Tomography ACCESSION EXAM DATE/TIME PROCEDURE ORDERING PROVIDER [id number] 06/23/2021 14:[address] Thorax w/ Contrast MD SALINAS CATHERINE CPT code 66149 Q9967 Reason For Exam (CT Thorax w/ Contrast) Cyst of mediastinum (Q34.1 [ICD-10-CM]) Report Indication: Cyst in the chest. Comparison 03/13/2021, outside studies. Findings: Enhanced chest performed with 75 mL Isovue-370. Airway patent. Stable shotty mediastinal adenopathy. A few punctate coronary atherosclerotic calcifications are noted. No hilar adenopathy. Lungs show no major volume loss. No effusion or pneumothorax. In the posterior mediastinum adjacent to the distal esophagus, aorta, spine, is a well-circumscribed 3.7 cm x 4.1 cm low-density structure. A few adjacent stable sized lymph nodes noted. Mean Hounsfield unit 12. Hiatus hernia. Size and appearance stable. No significant enhancement. IMPRESSION: Stable posterior inferior mediastinal structure without significant enhancement compatible with cyst. Report Dictated on Final Dictating Physician: MD BARRETT JOHN Signed Date and Time: 07/14/2021 11:59 am Signed by: MD BARRETT JOHN Transcribed Date and Time: 07/14/2021 12:00 Normal [facility] Creatinineon 06-19-2021 Creatinine [Mass/Vol] 0.59 mg/dL Normal 0.52-1.25 [facility] Comment on above: Performed By: #### C VFLR #### [facility] [address] [place] [address] , [address] eGFR OTHER > 90.0 Normal >60 [facility] Comment on above: Result Comment: KDIG O guidelines provide the following GFR categories: Stage GFR(ml/min/1.73 m2) Terms G1 >=90 Normal or high G2 60-89 Mildly decreased* G3a 45-59 Mildly to moderately decreased G3b 30-44 Moderately to severely decreased G4 15-29 Severely decreased G5 <15 Kidney failure *Relative to young adult level. In the absence of evidence of kidney damage, neither GFR category G1 nor G2 fulfill the criteria for CKD. The CKD-EPI equation is validated in individuals 18 years of age and older. Currently the best equation for estimating glomerular filtration rate (GFR) from serum creatinine in children is the Bedside Valdes equation. It is less accurate in patients with extremes of muscle mass, restriction of dietary protein, ingestion of creatine, extra-renal metabolism of creatinine, or treatment with medications that affect renal tubular creatinine secretion. Performed By: #### C VFLR #### [facility] [address] [place] [address] , [address] GFR/1.73 sq M.predicted among blacks MDRD (S/P/Bld) [Vol rate/Area] mL/min/{1.73_m2} Normal >60 [facility] Comment on above: Performed By: #### C VFLR #### [facility] [address] [place] [address] , [address] [facility] Cytologyon 04-14-2021 [facility] Cytology Patient Name THEA DORMAN Date of Procedure: 04/14/2021 Date Reported: 04/22/2021 Date Received: 04/14/2021 Date of / Sex 1965 (Age: 56) / F Race: PT DECLINED Submitting Physician: JANAE COATES MD Attending Physician: Other External # FINAL CYTOLOGICAL INTERPRETATION A. FINE NEEDLE ASPIRATION ESOPHAGEAL CYSTIC LESION NODULE, CYTOLOGY AND CELL BLOCK: --RARE AGGREGATE OF PLASMACYTOID CELLS OF UNKNOWN SIGNIFICANCE, SEE NOTE. Note: Small groups of plasmacytoid cells are present in the background of rare lymphocytes. Immunohistochemical stains including CD138, synaptophysin and chromogranin were attempted. Due to paucity of specimen, the stains were noncontributory. Clinical correlation and follow-up is recommended as indicated. Also see surgical report ([id number]). quality improvement consultant: Dr. Kalina Calvo. Slide(s) initially screened by a Police Detective at [facility], [address] [place] [address] Electronically Signed Out By FABIANA MAE MD By the signature on this report, the individual or group listed as making the Final Interpretation/Diagnosis certifies that they have reviewed this case. Slide(s) initially screened by a Police Detective at [facility] Rapid Evaluation A. FINE NEEDLE ASPIRATION ESOPHAGEAL CYSTIC LESION NODULE: Fine Needle Aspiration Immediate Read Result: Slides 2 and 4 paucicellular with atypical plasmacytoid cells, additional sampling recommended. Defer to final. Pathologist: Malathi Storm M.D. Date: 04/14/2021 Clinical History rule out cancer Source of Specimen A: FINE NEEDLE ASPIRATION ESOPHAGEAL CYSTIC LESION NODULE Specimen Submitted as: A: FINE NEEDLE ASPIRATION ESOPHAGEAL CYSTIC LESION NODULE Pap stain Non-Grain Loader, Pap stain Non-Grain Loader, Diff-Quik stain Non-Grain Loader, Diff-Quik stain Non-Grain Loader, CELL BLOCK, IH CD138, IH SYNAPTOPHYSIN, IH CHROMOGRANIN Gross Description A. FINE NEEDLE ASPIRATION ESOPHAGEAL CYSTIC LESION NODULE: RECEIVED 4 DIRECT SMEARS (2 AIR-DRIED DIFF-QUICK AND 2 SPRAY-FIXED) AND 30cc OF CLEAR, COLORLESS NEEDLE RINSE IN CYTOLYT WITH PARTICLES. The assays/tests were performed with appropriate positive and negative controls which stained appropriately. [facility] Department of Pathology [address] [place] [address] Normal [facility] Comment on above: Performed By: #### A FPC #### [facility] Cyt[facility] [address] [place] [address] Surgical Pathology Dep artmenton 04-14-2021 [facility] Surgical Pathology Department Name THEA DORMAN Pathologist: NENA STORM MD Date of Procedure: 04/14/2021 Date Received: 04/14/2021 Date Reported 04/21/2021 Submitting Physician: JANAE COATES MD Location: [facility] Other External # FINAL DIAGNOSIS A. ESOPHAGEAL CYSTIC LESION NODULE: --MINUTE FRAGMENT OF FIBROADIPOSE TISSUE WITH A LYMPHOHISTIOCYTIC AGGREGATE, AND A FOCUS OF ATYPICAL PLASMACYTOID CELLS OF UNDETERMINED SIGNIFICANCE; INSUFFICIENT FOR FURTHER EVALUATION/WORK-UP. Electronically Signed Out By NENA STORM MD/RFA By the signature on this report, the individual or group listed as making the Final Interpretation/Diagnosis certifies that they have reviewed this case. Clinical History: rule cancer Specimens Submitted As: A: ESOPHAGEAL CYSTIC LESION NODULE Gross Description: Received in formalin, labeled with the patient's name and hospital number and A. esophageal cystic lesion, is a scant amount hernández soft tissue aggregating to less than 0.1 x 0.1 x 0.1 cm. The specimen is submitted in toto in one cassette ( the specimen may not survive the processing). XL xli/04/15/2021 [facility] Department of Pathology [address] [place] [address] Normal [facility] Comment on above: Performed By: #### A #### [facility] Surgical Pathology Department [address] [place] [address] CORONAVIRUS 2019, SCREEN ASY MPTOMATICon 04-14-2021 SARS-CoV-2 (COVID-19) RNA CHRIS+probe Ql (Unsp spec) Not detected Normal Not Detected [facility] Comment on above: Result Comment: . This assay is designed to detect the N, ORF1ab and/or S genes of SARS-CoV-2 via nucleic acid amplification. A Negative (NOT DETECTED) result does not preclude 2019-nCoV infection since the adequacy of sample collection and/or low viral burden may result in presence of viral nucleic acids below the clinical sensitivity of this test method. Negative (NOT DETECTED) result should not be used as the sole basis for treatment or other patient management decisions. Rather negative results should be combined with clinical observations, patient history, and epidemiological information to make patient management decisions. Fact sheet for providers: https://www.fda.gov/media/952605/download Fact sheet for patients: https://www.fda.gov/media/766582/download This test has received FDA Emergency Use Authorization (EUA) and has been verified by [facility] ([facility]). This test is only authorized for the duration of time that circumstances exist to justify the authorization of the emergency use of in vitro diagnostic tests for the detection of SARS-CoV-2 virus and/or diagnosis of COVID-19 infection under section 564(b)(1) of the Act, 21 U.S.C. 360bbb-3(b)(1), unless the authorization is terminated or revoked sooner. [facility] is certified under CLIA-88 as qualified to perform high complexity testing. Testing is performed in the [facility] laboratories located at [address] [place] [address]. Performed By: #### C OVSC #### [place] [address] Lab Specimen Source Nasal, Nasopharyngeal Normal [facility] Comment on above: Performed By: #### C OVSC #### [address] [place] [address] Covid 19 Resultson 1 SARS-CoV-2 (COVID-19) RNA CHRIS+probe Ql (Unsp spec) NEGATIVE COVID-19 Test Coronaviruses are common world-wide and are the cause of many common colds. SARS-COV2 is a new coronavirus that began circulating worldwide in 2019 so we are calling it COVID-19. It has been estimated that four out of five patients with COVID-19 will recover at home without the need for medical attention. Symptoms of COVID-19 may include cough, fever, shortness of breath, loss of taste or smell and other flu-like symptoms including chills, sore muscles, sore throat, and headache. Severe illness is more common in older people and people with other health problems such as high blood pressure, obesity, and immune system problems. If the test is positive, you have COVID-19. You will be contacted by the ordering physicians office and instructed to remain on home isolation, in accordance with CDC guidelines. You may also be contacted by the [facility] to see if any of your close contacts may have been exposed to the virus and need to quarantine. If the test is negative, you likely do not have COVID-19 at this time, but you still may have a different illness that can spread to other people (like Influenza, or the Flu) and could still be at risk for getting COVID-19. We recommend that you stay away from other people to limit the spread of illness until your symptoms are improving and you are fever-free for 24 hours without the use of fever lowering medications such as acetaminophen or ibuprofen. No test is 100% accurate so if you are still concerned you may have COVID-19, talk to your doctor about the need to continue to stay away from others. Medicines Unless your provider told you not to use the following: Acetaminophen (Tylenol and others) is generally safe. Anti-inflammatory medications, such as Ibuprofen (Advil or Motrin) or Naproxen (Aleve) can also be used. Mzvu-fzf-wgejowl cough and cold medicines can be used according to the instructions on the package. Some mbaf-uci-lmqxccl medicines also contain acetaminophen. Make sure you are not taking more than your recommended dose. For those not hospitalized, there is no specific treatment available for this illness. Antibiotics do not treat Coronaviruses. Follow-Up Follow up with your doctor by scheduling a virtual visit or consider follow-up at one of our urgent care fever clinics. If you are having difficulty breathing, or are very weak and having difficulty standing, this is a medical emergency. Call 911 or have someone take you to the nearest emergency room immediately. If possible, wear a facemask. Additional guidance from the CDC for patients who tested POSITIVE for COVID-19 How to isolate: Isolate yourself in a specific room at home and limit your contact with others. Use a separate bathroom from other members of the household, when possible. Leave home only to get essential medical care. Do not go to work, school or public areas. Avoid using public transportation, ride-sharing, or taxis. Restrict contact with pets and other animals. If you must care for your pet or be around animals while you are sick, wash your hands before and after your interaction and wear a facemask. Make sure that shared spaces in the home have good airflow, such as by an air conditioner or an opened window, weather permitting. Personal Hygiene Procedures: Wear a face mask when in the same room as other people or pets. If a face mask interferes with your breathing, others should wear a mask when sharing space with you. Frequent hand-washing: wash your hands with soap and water for at least 20 seconds. If soap and water are not available, use alcohol-based hand sanitary chemist. Avoid touching your eyes, nose, and mouth with unwashed hands. Household Hygiene Procedures: Avoid sharing personal household items such as dishes, glassware, cups, eating utensils, towels or bedding with other people or pets in your home. After use, these items should be washed with soap and hot water. Disinfect all high-touch surfaces every day with antibacterial cleaning solutions such as Lysol wipes, bleach, cleansers, etc. High-touch surfaces include tabletops, doorknobs, bathroom fixtures, toilets, phones, keyboards, tablets and bedside tables. Immediately clean any surfaces that may have blood, poop or body fluids on them, using antibacterial cleaning solutions such as Lysol wipes, bleach, cleansers, etc. If clothing or bedding come into contact with blood, poop or body fluids, they should be washed immediately. Follow the directions on the laundry detergent and clothing labels but hot water is recommended when possible. Stopping home isolation precautions: If possible, consult your doctor before stopping home isolation precautions. According to the CDC, you can discontinue home isolation precautions when you have met both of these criteria: Your fever and respiratory symptoms have been gone for 24 octavio (more content not included)... Normal [facility] GLUCOSE-POCTon 04-14-2021 Glucose [Mass/Vol] 139 mg/dL High 74 - 99 [facility] Comment on above: Performed By: #### G BETTYE #### [facility] [address] [place] [address] Order Reconciliationon 04-14 Order Reconciliation Page 1 Discharge Reconciliation Document Reconciliation Type: Discharge requested on behalf of Janae Coates (Physician) done by Janae Coates) Discharge - Reconciliation: 14-Apr-2021 15:23 by: Janae Coates) Home Medications EnteredHOME MEDICATIONS AT DISCHARGE DateReconciliation Comment/ Additional Information amLODIPine 10 mg oral tablet 1 tab(s) orally once a day 10-Apr-2021 13:13 amLODIPine 10 mg oral tablet 1 tab(s) orally once a day 10-Apr-2021 13:13 amLODIPine 10 mg oral tablet is continued as amLODIPine 10 mg oral tablet Farxiga 10 mg oral tablet 1 tab(s) orally once a day 10-Apr-2021 13:13 Farxiga 10 mg oral tablet 1 tab(s) orally once a day 10-Apr-2021 13:13 Farxiga 10 mg oral tablet is continued as Farxiga 10 mg oral tablet glimepiride 4 mg oral tablet orally 2 times a day 10-Apr-2021 13:14 glimepiride 4 mg oral tablet orally 2 times a day 10-Apr-2021 13:14 glimepiride 4 mg oral tablet is continued as glimepiride 4 mg oral tablet irbesartan 150 mg oral tablet 1 tab(s) orally once a day 10-Apr-2021 13:14 irbesartan 150 mg oral tablet 1 tab(s) orally once a day 10-Apr-2021 13:14 irbesartan 150 mg oral tablet is continued as irbesartan 150 mg oral tablet KlonoPIN 1 mg oral tablet orally 2 times a day 10-Apr-2021 13:14 KlonoPIN 1 mg oral tablet orally 2 times a day 10-Apr-2021 13:14 KlonoPIN 1 mg oral tablet is continued as KlonoPIN 1 mg oral tablet Lipitor 40 mg oral tablet 1 tab(s) orally once a day 10-Apr-2021 13:13 Lipitor 40 mg oral tablet 1 tab(s) orally once a day 10-Apr-2021 13:13 Lipitor 40 mg oral tablet is continued as Lipitor 40 mg oral tablet metFORMIN 1000 mg oral tablet, extended release orally 2 times a day 10-Apr-2021 13:15 metFORMIN 1000 mg oral tablet, extended release orally 2 times a day 10-Apr-2021 13:15 metFORMIN 1000 mg oral tablet, extended release is continued as metFORMIN 1000 mg oral tablet, extended release Paxil 40 mg oral tablet 1 tab(s) orally once a day 10-Apr-2021 13:15 Paxil 40 mg oral tablet 1 tab(s) orally once a day 10-Apr-2021 13:15 Paxil 40 mg oral tablet is continued as Paxil 40 mg oral tablet PriLOSEC 20 mg oral delayed release capsule 1 cap(s) orally once a day 10-Apr-2021 13:15 PriLOSEC 20 mg oral delayed release capsule 1 cap(s) orally once a day 10-Apr-2021 13:15 PriLOSEC 20 mg oral delayed release capsule is continued as PriLOSEC 20 mg oral delayed release capsule Remeron 45 mg oral tablet 1 tab(s) orally once a day (at bedtime) 10-Apr-2021 13:15 Remeron 45 mg oral tablet 1 tab(s) orally once a day (at bedtime) 10-Apr-2021 13:15 Remeron 45 mg oral tablet is continued as Remeron 45 mg oral tablet Tapazole 40mg am, 20mg pm 10-Apr-2021 13:17 Tapazole 40mg am, 20mg pm 10-Apr-2021 13:17 Tapazole is continued as Tapazole Tradjenta 5 mg oral tablet 1 tab(s) orally once a day 10-Apr-2021 13:15 Tradjenta 5 mg oral tablet 1 tab(s) orally once a day 10-Apr-2021 13:15 Tradjenta 5 mg oral tablet is continued as Tradjenta 5 mg oral tablet Vitamin D3 orally once a day 10-Apr-2021 13:16 Vitamin D3 orally once a day 10-Apr-2021 13:16 Vitamin D3 is continued as Vitamin D3 All Active Home Medications at time of Discharge Reconciliation: 14-Apr-2021 15:23 amLODIPine 10 mg oral tablet 1 tab(s) orally once a day Farxiga 10 mg oral tablet 1 tab(s) orally once a day glimepiride 4 mg oral tablet orally 2 times a day irbesartan 150 mg oral tablet 1 tab(s) orally once a day KlonoPIN 1 mg oral tablet orally 2 times a day Lipitor 40 mg oral tablet 1 tab(s) orally once a day metFORMIN 1000 mg oral tablet, extended release orally 2 times a day Paxil 40 mg oral tablet 1 tab(s) orally once a day PriLOSEC 20 mg oral delayed release capsule 1 cap(s) orally once a day Remeron 45 mg oral tablet 1 tab(s) orally once a day (at bedtime) Tapazole 40mg am, 20mg pm Tradjenta 5 mg oral tablet 1 tab(s) orally once a day Vitamin D3 orally once a day Normal [facility] COVID-19, RapidOrdered By: Kenzie Amaya on 03-03-2021 SARS-CoV-2 (COVID-19) RNA CHRIS+probe Ql (Unsp spec) see below [facility] Work Phone: [phone] Comment on above: Not Detected Expected Result: Not Detected _ Isothermal nucleic acid amplification performed on the [employer] System by the [facility] Negative results do not preclude SARS-CoV-2 infection and should not be used as the sole basis for treatment or other patient management decisions. This assay was developed by [employer] and distributed under an Emergency Use Authorization (EUA) granted by the FDA for the qualitative detection of SARS-CoV-2 nucleic acid. Provider and patient fact sheets can be found at https://www.fda.gov/media/109787/download and https://www.fda.gov/media/746045/download. Test Performed by [facility], [address] [place] [address]. , [address] Work Phone: [phone] [facility] Work Phone: [phone] Comprehensive Metabolic Pane lOrdered By: Patito Amaya on 03-03-2021 Albumin [Mass/Vol] 4.2 g/dL 3.5 - 5.0 g/dL [facility] Work Phone: [phone] ALP (Bld) [Catalytic activity/Vol] 171 U/L High 38 - 126 U/L [facility] Work Phone: [phone] ALT [Catalytic activity/Vol] 23 U/L 0 - 34 U/L [facility] Work Phone: [phone] Comment on above: The ALT test is perf ormed by an updated assay method. Please note that the reference intervals have been changed and are now sex specific. Anion gap [Moles/Vol] 7 mmol/L 3 - 13 mmol/L [facility] Work Phone: [phone] AST [Catalytic activity/Vol] 39 U/L 15 - 46 U/L [facility] Work Phone: [phone] Bilirubin [Mass/Vol] 0.3 mg/dL 0.2 - 1 .3 mg/dL [facility] Work Phone: [phone] Calcium [Mass/Vol] 9.5 mg/dL 8.4 - 10. 4 mg/dL [facility] Work Phone: [phone] Chloride [Moles/Vol] 103 mmol/L 98 - 10 7 mmol/L [facility] Work Phone: [phone] CO2 [Moles/Vol] 26 mmol/L 22 - 30 mmol/L [facility] Work Phone: [phone] Creatinine [Mass/Vol] 0.69 mg/dL 0.52 - 1.25 mg/dL [facility] Work Phone: [phone] EGFR IF NonAfrican Cymraes >90.0 >60 mL/min [facility] Work Phone: [phone] Comment on above: KDIGO guidelines pro vide the following GFR categories: Stage GFR(ml/min/1.73 m2) Terms G1 >=90 Normal or high G2 60-89 Mildly decreased* G3a 45-59 Mildly to moderately decreased G3b 30-44 Moderately to severely decreased G4 15-29 Severely decreased G5 <15 Kidney failure *Relative to young adult level. In the absence of evidence of kidney damage, neither GFR category G1 nor G2 fulfill the criteria for CKD. The CKD-EPI equation is validated in individuals 18 years of age and older. Currently the best equation for estimating glomerular filtration rate (GFR) from serum creatinine in children is the Bedside Valdes equation. It is less accurate in patients with extremes of muscle mass, restriction of dietary protein, ingestion of creatine, extra-renal metabolism of creatinine, or treatment with medications that affect renal tubular creatinine secretion. Free PSA/Total PSA [Mass fraction] 7.2 g/dL 6.3 - 8.2 g/dL [facility] Work Phone: [phone] GFR/1.73 sq M.predicted among blacks MDRD (S/P/Bld) [Vol rate/Area] mL/min/{1.73_m2} >60 mL/min [facility] Work Phone: [phone] Glucose [Mass/Vol] 192 mg/dL High 70 - 100 mg/dL [facility] Work Phone: [phone] Interpretation and review of laboratory results Abnormal [facility] Work Phone: [phone] Potassium [Moles/Vol] 3.8 mmol/L 3.5 - 5.1 mmol/L [facility] Work Phone: [phone] Sodium [Moles/Vol] 136 mmol/L 135 - 145 mmol/L [facility] Work Phone: [phone] Urea nitrogen (BldV) [Mass/Vol] 10 mg/dL 7 - 20 mg/dL [facility] Work Phone: [phone] Hemogram (CBC) w/Auto DiffOr dered By: Patito Amaya on 03-03-2021 Absolute Baso # 0.1 10*3/uL 0.0 - 0.2 10*3/uL [facility] Work Phone: [phone] Absolute Neut # 10.0 10*3/uL High 1.8 - 7.0 10*3/uL [facility] Work Phone: Basophils/100 WBC (Bld) 1.0 % 0.0 - 2.0 % [facility] Work Phone: Eosinophils (Bld) [#/Vol] 0.2 10*3/uL 0.0 - 0.5 10*3/uL [facility] Work Phone: Eosinophils/100 WBC (Bld) 1.6 % 1.0 - 6.0 % [facility] Work Phone: Granulocytes/100 WBC (Bld) 66.6 % 40.0 - 80.0 % [facility] Work Phone: [phone] Hematocrit (Bld) [Volume fraction] 36.9 % 35.0 - 47.0 % [facility] Work Phone: [phone] Hemoglobin.gastrointe stinal spec 1 Ql (Stl) 11.7 g/dL 11.7 - 16.0 g/dL [facility] Work Phone: Interpretation and review of laboratory results Abnormal [facility] Work Phone: Lymphocytes (Bld) [#/Vol] 3.5 10*3/uL 1.0 - 4.3 10*3/uL [facility] Work Phone: Lymphocytes/100 WBC (Bld) 23.3 % 20.0 - 40.0 % [facility] Work Phone: [phone] MCH (RBC) [Entitic mass] 23.6 pg Low 26.0 - 34.0 pg [facility] Work Phone: [phone] MCHC (RBC) [Mass/Vol] 31.8 % Low 32.0 - 36.0 % [facility] Work Phone: MCV (RBC) [Entitic vol] 74.1 fL Low 79.0 - 98.0 fL [facility] Work Phone: 1 Monocytes (Bld) [#/Vol] 1.1 10*3/uL High 0.0 - 0.8 10*3/uL [facility] Work Phone: Monocytes/100 WBC (Bld) 7.5 % 2.0 - 10.0 % [facility] Work Phone: Platelet distribution width (Bld) [Ratio] 17.5 % High 11.5 - 14.5 % [facility] Work Phone: Platelet mean volume (Bld) [Entitic vol] 7.2 fL Low 7.4 - 10.4 fL [facility] Work Phone: Platelets (Bld) [#/Vol] 467 10*3/uL High 140 - 440 10*3/uL [facility] Work Phone: RBC (Bld) [#/Vol] 4.97 10*6/uL 3.80 - 5.2 0 10*6/uL [facility] Work Phone: WBC (Bld) [#/Vol] 15.0 10*3/uL High 3.6 - 10.7 10*3/uL [facility] Work Phone: Test Performed by [address] [place] [address] [facility] Work Phone: [facility] Work Phone: LipaseOrdered By: Patito chapman on 03-03-2021 Lipase [Catalytic activity/Vol] 154 U/L 23 - 300 U/L [facility] Work Phone: MagnesiumOrdered By: Patito mariee on 03-03-2021 Magnesium [Mass/Vol] 1.9 mg/dL 1.6 - 2 .3 mg/dL [facility] Work Phone: [phone] No Panel InformationOrdered By: Patito Amaya on 03-03-2021 Test Performed by [facility], [address] , [place], [place] [address] [facility] Work Phone: [phone] [facility] Work Phone: [phone] Troponin [id number] By: Patito Amaya on 03-03-2021 Troponin I.cardiac [Mass/Vol] ng/mL 0.000 - 0.034 ng/mL [facility] Work Phone: 1 Comment on above: . Test Performed by [facility], [address] , [place], [place] [address] [facility] Work Phone: 1 [facility] Work Phone: [phone] UrinalysisOrdered By: Gonzalo Mae on 02-22-2021 Appearance (U) Clear Clear NA [facility] Work Phone: 1 Comment on above: . Bacteria, UA Many (51-100) Abnormal Negative /[HPF] [facility] Work Phone: 1 Comment on above: . Bilirubin Urine Negative Negative mg/dL [facility] Work Phone: 1 Comment on above: . Color (U) DARK YELLOW Abnormal Lt. Yellow NA [facility] Work Phone: 1 Comment on above: . Glucose, Ur 500 mg/dL Abnormal Normal (<70) [facility] Work Phone: 1 Comment on above: . Interpretation and review of laboratory results Abnormal [facility] Work Phone: 1 Ketones Ql (U) Negative Negative mg/dL [facility] Work Phone: 1 Comment on above: . LEUKOCYTES, UA 500 Abnormal Negative Stephenie/uL [facility] Work Phone: 1 Comment on above: . Nitrite, Urine Negative Negative NA [facility] Work [facility]: 1 Comment on above: . Occult Blood,Urine >1.0 Abnormal Negative mg/dL [facility] Work Phone: 1 Comment on above: . pH (U) 6.5 [pH] [facility] Work Phone: [phone] Comment on above: . RBC, UA 0-2 0 - 2 /[HPF] [facility] Work Phone: 1 Comment on above: . Specific [place], Urine <1.005 Abnormal [facility] Work Phone: 1 Comment on above: . Squam Epithel, UA 0-2 3 - 5 /[HPF] [facility] Work Phone: 1 Comment on above: . Total Protein, Urine Negative Negativ e mg/dL [facility] Work Phone: 1 Comment on above: . Urobilinogen, Urine Normal Normal ( 0-1) mg/dL [facility] Work Phone: 1 Comment on above: . Volume 8-12 ml [facility] Work Phone: 1 Comment on above: . WBC, UA >100 Abnormal 0 - 5 /[HPF] [facility] Work Phone: 1 Comment on above: . Test Performed by [facility], [facility] [address] [place], [place] [address] [facility] Work Phone: 1 [facility] Work Phone: 1 UrinalysisOrdered By: Gonzalo Mae on 01-31-2021 Appearance (U) Clear Clear NA [facility] Work Phone: [phone] Comment on above: . Bacteria, UA Loaded (>100) Abnormal Negative /[facility]HPF] [facility] Work [facility]: 1 Comment on above: . Bilirubin Urine Negative Negative mg/dL [facility] Work Phone: 1 Comment on above: . Color (U) DARK YELLOW Abnormal Lt. Yellow NA [facility] Work Phone: 1 Comment on above: . Glucose, Ur 500 mg/dL [facility]normal Normal (<70) [facility] Work Phone: [phone] Comment on above: . Interpretation and review of laboratory results Abnormal [facility] Work Phone: [phone] Ketones Ql (U) Negative Negative mg/dL [facility] Work Phone: 1 Comment on above: . LEUKOCYTES, UA 250 Abnormal Negative Stephenie/uL [facility] Work Phone: [phone] Comment on above: . Nitrite, Urine Positive Abnormal Negative NA [facility] Work Phone: [phone] Comment on above: . Occult Blood,Urine 1.0 mg/dL Abnormal Negative [facility] Work Phone: [phone] Comment on above: . pH (U) 5.5 [pH] [facility] Work Phone: [phone] Comment on above: . RBC, UA 0-2 0 - 2 /[HPF] [facility] Work Phone: [phone] Comment on above: . Specific [place], Urine <1.[address] [facility] Work Phone: [phone] Comment on above: . Squam Epithel, UA 0-2 3 - 5 /[HPF] [facility] Work Phone: [phone] Comment on above: . Total Protein, Urine Negative Negativ e mg/dL [facility] Work Phone: [phone] Comment on above: . Urobilinogen, Urine Normal Normal ( 0-1) mg/dL [facility] Work Phone: [phone] Comment on above: . Volume 12 ml [facility] Work Phone: [phone] Comment on above: . WBC, UA 26-50 Abnormal 0 - 5 /[HPF] [facility] Work Phone: [phone] Comment on above: . Test Performed by [facility], [address] [place] [address] Rd. , [place] [id number] Work Phone: [phone] [facility] Work Phone: [phone] Urinalysison 08-05-2020 Appearance (U) Clear Clear NA [place], [place] Comment on above: . Bacteria, UA Moderate (6-50) Abnormal Negative /[HPF] [place] Comment on above: . Bilirubin Urine Negative Negative mg/dL [place] Comment on above: . Color (U) DARK YELLOW Abnormal Lt. Yellow NA [place] Comment on above: . Glucose, Ur >1,000 Abnormal Normal (<70) mg/dL [place] Comment on above: . Interpretation and review of laboratory results Abnormal [place] Ketones Ql (U) Negative Negative mg/dL [place] Comment on above: . LEUKOCYTES, UA 250 Abnormal Negative Stephenie/uL [place] Comment on above: . Nitrite, Urine Negative Negative NA [place] Comment on above: . Occult Blood,Urine Negative Negative mg/dL [place] Comment on above: . pH (U) 5.0 [pH] [place] Comment on above: . Protein (U) [Mass/Vol] Negative Negative mg/dL [place] Comment on above: . RBC (U) [#/Vol] 3-5 Abnormal 0 - 2 /[HPF] [place] Comment on above: . Specific [place], Urine 1.026 [place] Comment on above: . Squam Epithel, UA 11-25 Abnormal 3 - 5 /[HPF] [place] Comment on above: . Urobilinogen, Urine Normal Normal ( 0-1) mg/dL [place] Comment on above: . Volume 12 ml [place] Comment on above: . WBC, UA 26-50 Abnormal 0 - 5 /[HPF] [place] Comment on above: . Test Performed by [facility], [address] [place] [address] , [address] Cult Urineon 02-07-2020 Cult Urine Test performed at [facility] ORGANISM: *Escherichia coli (ID: 1) >100,000 CFU/ml CLSI breakpoints for therapy of uncomplicated UTI due to E. coli, K. pneumoniae or P. mirabilis were applied and may be used to predict the activity of oral agents (cefdinir, cefpodoxime, cefuroxime, and cephalexin). Normal [facility] Comment on above: Performed By: #### C _URI #### [address] [address] Urinalysis Routineon 020 Appearance (U) 3+ (CLOUDY) Normal [facility] Comment on above: Performed By: #### L URIN #### [address] [address] Bacteria LM.HPF (Urine sed) [#/Area] MODERATE Abnormal None [facility] Comment on above: Performed By: #### L URIN #### [facility] [address] [place] [address] Bilirubin Urine Negative Normal Negative [facility] Comment on above: Performed By: #### L URIN #### [facility] [address] [address] Color (U) YELLOW Normal [facility] Comment on above: Performed By: #### L URIN #### [facility] [address] [address] Ep Cells Urine 2-5 Normal 0-5 [facility] Comment on above: Performed By: #### L URIN #### [facility] [address] [address] Glucose Ql (U) 2+ Abnormal Negative [facility] Comment on above: Performed By: #### L URIN #### [facility] [address] [address] Hemoglobin,Urine 3+ Abnormal Negative [facility] Comment on above: Performed By: #### L URIN #### [facility] [address] [address] Ketone Urine TRACE Abnormal Negative [facility] Comment on above: Performed By: #### L URIN #### [facility] [address] [address] Leukocytes Esterase 1+ Abnormal Negative [facility] Comment on above: Performed By: #### L URIN #### [facility] [address] [address] Nitrites Urine Negative Normal Negative [facility] Comment on above: Performed By: #### L URIN #### [facility] [address] [address] pH (U) 5.5 [pH] Normal 5.0-8.0 [facility] Comment on above: Performed By: #### L URIN #### [facility] [address] [address] Protein (U) [Mass/Vol] 2+ Abnormal Negative [facility] Comment on above: Performed By: #### L URIN #### [facility] [address] [place], [place] [address] RBC LM.HPF (Urine sed) [#/Area] /[HPF] Abnormal 0-3 [facility] Comment on above: Performed By: #### L URIN #### [facility] [address] [address], Ur 1.020 Normal 1.005-1.030 [facility] Comment on above: Performed By: #### L URIN #### [facility] [address] [address] Urobilinogen,Ur 0.2 EU/dL Normal 0.2-1.0 [facility] Comment on above: Performed By: #### L URIN #### [facility] [address] [address] WBC LM.HPF (Urine sed) [#/Area] 6-12 Abnormal 0-5 [facility] Comment on above: Performed By: #### L URIN #### [facility] [address] [address] Metabolic Panelon 12-22-2019 Glucose [Mass/Vol] 220 mg/dL High 70 - 100 mg/dL [place], [place] Comment on above: Test performed by gl ucose meter. Results may be 10%-15% lower than serum/plasma values. (CLIA ID [id number]) POCT Glucoseon 12-22-2019 Interpretation and review of laboratory results Normal [place] Interpretation and review of laboratory results Abnormal [place] QC OK? yes [place] Test Performed by [facility], [address] [place] [address] Rd. , [place], [place] [id number] [place] [address] Urinalysison 12-22-2019 Appearance (U) Clear Clear NA [place] Comment on above: . Bilirubin Urine Negative Negative mg/dL [place] Comment on above: . Color (U) LIGHT YELLOW Lt. Yellow NA [place] Comment on above: . Glucose, Ur >1,000 Abnormal Normal (<70) mg/dL [place] Comment on above: . Interpretation and review of laboratory results Abnormal [place] Ketones Ql (U) Negative Negative mg/dL [place] Comment on above: . LEUKOCYTES, UA 250 Abnormal Negative Stephenie/uL [place] Comment on above: . Nitrite, Urine Negative Negative NA [place] Comment on above: . Occult Blood,Urine 0.1 mg/dL Abnormal Negative [place] Comment on above: . pH (U) 5.0 [pH] [place] Comment on above: . Protein (U) [Mass/Vol] Negative Negative mg/dL [place] Comment on above: . Specific [address] [place], Urine 1.026 [place] Comment on above: . Urobilinogen, Urine Normal Normal ( 0-1) mg/dL [place] Comment on above: . Test Performed by [facility], [address] , [address] XR CHEST STANDARD (2 VW)on 0 10-17-2019 Patient Name: THEA DORMAN ---Diagnostic Radiology--- Exam Date/Time 10/17/2019 13:47:44 EST Exam CR Chest PA/LAT Ordering Physician MD SALINAS CATHERINE Accession Number [id number] CPT4 Codes 18587 () Reason For Exam Pneumonia, unspecified organism Report CLINICAL INFORMATION: Respiratory normality. History of pneumonia. Chest x-ray, PA and lateral: PA and lateral views are compared to the prior examination of 04/13/2019. There is no interval examination at this institution for comparison. There is no abnormality of the mediastinum or cardiac silhouette. No pleural effusion, vascular congestion, focal consolidation or pneumothorax is seen. IMPRESSION: No evidence of acute cardiopulmonary process or significant interval change. The clinically described pneumonia is not identified. Report Dictated on --- Final --- Dictated: 10/17/2019 1:58 pm Dictating Physician: MD ANGULO HARLAN Signed Date and Time: 10/17/2019 1:59 pm Signed by: MD ANGULO HARLAN Transcribed Date and Time: 10/17/2019 1:58 [place], [place] Erica Antonio Incoming Radiology Results From [facility] - 10/17/2019 2:01 PM EST Patient Name: THEA DORMAN ---Diagnostic Radiology--- Exam Date/Time 10/17/2019 13:47:44 EST Exam CR Chest PA/LAT Ordering Physician MD SALINAS CATHERINE Accession Number [id number] CPT4 Codes 85917 () Reason For Exam Pneumonia, unspecified organism Report CLINICAL INFORMATION: Respiratory normality. History of pneumonia. Chest x-ray, PA and lateral: PA and lateral views are compared to the prior examination of 04/13/2019. There is no interval examination at this institution for comparison. There is no abnormality of the mediastinum or cardiac silhouette. No pleural effusion, vascular congestion, focal consolidation or pneumothorax is seen. IMPRESSION: No evidence of acute cardiopulmonary process or significant interval change. The clinically described pneumonia is not identified. Report Dictated on --- Final --- Dictated: 10/17/2019 1:58 pm Dictating Physician: MD ANGULO HARLAN Signed Date and Time: 10/17/2019 1:59 pm Signed by: MD ANGULO HARLAN Transcribed Date and Time: 10/17/2019 1:58 [place], [place] Comp Metabolic Panelon 06-12 Albumin [Mass/Vol] 3.8 g/dL Low 3.9-4.9 [facility] Comment on above: Performed By: #### C MP #### [facility] Routine Lab [address] [place], [place] [address] ALP [Catalytic activity/Vol] 157 U/L High 34-123 [facility] Comment on above: Performed By: #### C MP #### [facility] Routine Lab [address] [place], [place] [address] ALT [Catalytic activity/Vol] 48 U/L High 7-38 [facility] Comment on above: Performed By: #### C MP #### [facility] Routine Lab [address] [place], [place] [address] Anion gap [Moles/Vol] 15 mmol/L Normal 9-18 [facility] Comment on above: Performed By: #### C MP #### [facility] Routine Lab [address] [place], [place] [address] AST [Catalytic activity/Vol] 40 U/L High 13-35 [facility] Comment on above: Performed By: #### C MP #### [facility] Routine Lab [address] [place] [address] Bilirubin Ql (U) 0.3 mg/dL Normal 0.2-1.3 [facility] Reference Lab Comment on above: Performed By: #### C MP #### [facility] Routine Lab [address] [place] [id number] Calcium [Mass/Vol] 10.1 mg/dL Normal 8.5-10.2 [facility] Reference Lab Comment on above: Performed By: #### C MP #### [facility] Routine Lab [address] [place] [id number] Chloride [Moles/Vol] 104 mmol/L Normal 97-105 [facility] Reference Lab Comment on above: Performed By: #### C MP #### [facility] Routine Lab [address] [place] [id number] CO2 [Moles/Vol] 20 mmol/L Low 22-30 [facility] Comment on above: Performed By: #### C MP #### [facility] Routine Lab [address] [place], [place] [id number] Creatinine [Mass/Vol] 0.58 mg/dL Normal 0.58-0.96 [facility] Comment on above: Performed By: #### C MP #### [facility] Routine Lab [address] [place], [place] [id number] eGFR- Amer. >60 Normal [facility] Reference [facility] Comment on above: Performed By: #### C MP #### [facility] Routine Lab [address] [place], [place] [address] GFR/1.73 sq M predicted among non-blacks MDRD (S/P/Bld) [Vol rate/Area] mL/min/{1.73_m2} Normal [facility] Comment on above: Performed By: #### C MP #### [facility] Routine Lab [address] [place], [place] [address] Glucose [Mass/Vol] 258 mg/dL High 74-99 [facility] Comment on above: Performed By: #### C MP #### [facility] Routine Lab [address] [place] [address] Potassium [Moles/Vol] 3.8 mmol/L Normal 3.7-5.1 [facility] Reference [facility] Comment on above: Performed By: #### C MP #### [facility] Routine Lab [address] [place] [address] Protein [Mass/Vol] 7.0 g/dL Normal 6.3-8.0 [facility] Comment on above: Performed By: #### C MP #### [facility] Routine Lab [address] [place], [place] [address] Sodium [Moles/Vol] 139 mmol/L Normal 136-144 [facility] Comment on above: Performed By: #### C MP #### [facility] Routine Lab [address] [place], [place] [address] Urea nitrogen [Mass/Vol] 14 mg/dL Normal 7-21 [facility] Comment on above: Performed By: #### C MP #### [facility] Routine Lab [address] [place], [place] [address] XR CHEST STANDARD (2 VW)on 0 04-13-2019 Patient Name: THEA DORMAN ---Diagnostic Radiology--- Exam Date/Time 04/13/2019 19:11:00 EDT Exam CR Chest PA/LAT Ordering Physician MD PORRAS MICHAEL Accession Number [id number] CPT4 Codes 73256 () Reason For Exam Short of breath, productive cough Report Indication: Tightness in chest. Shortness of breath. FINDINGS: Chest 2 views. No consolidation major volume loss or effusion. Mediastinum unremarkable. Comparison 04/10/2019 showed similar findings. IMPRESSION: No acute process seen. Report Dictated on --- Final --- Dictated: 04/13/2019 7:31 pm Dictating Physician: MD BARRETT JOHN Signed Date and Time: 04/13/2019 7:32 pm Signed by: MD BARRETT JOHN Transcribed Date and Time: 04/13/2019 7:31 [place], [place] Paco, Sum[place] Incoming Radiology [facility] - 04/13/2019 7:33 PM EDT Patient Name: THEA DORMAN ---Diagnostic Radiology--- Exam Date/Time 04/13/2019 19:11:00 EDT Exam CR Chest PA/LAT Ordering Physician MD PORRAS MICHAEL Accession Number [id number] CPT4 Codes 57832 () Reason For Exam Short of breath, productive cough Report Indication: Tightness in chest. Shortness of breath. FINDINGS: Chest 2 views. No consolidation major volume loss or effusion. Mediastinum unremarkable. Comparison 04/10/2019 showed similar findings. IMPRESSION: No acute process seen. Report Dictated on --- Final --- Dictated: 04/13/2019 7:31 pm Dictating Physician: MD BARRETT JOHN Signed Date and Time: 04/13/2019 7:32 pm Signed by: MD BARRETT JOHN Transcribed Date and Time: 04/13/2019 7:31 [place] Rapid Strep Screenon 019 S. pyogenes Ag Ql (Throat) see below Negative NA [place] Comment on above: NEGATIVE (presumptiv e) for Group A Streptococcus antigen. Method: Immunochromatographic assay. Confirmatory testing to follow. Confirmatory testing performed at an additional cost. Test Performed by [address] , [place], [place] [address] [place] XR CHEST STANDARD (2 VW)on 0 04-10-2019 Patient Name: THEA DORMAN ---Diagnostic Radiology--- Exam Date/Time 04/10/2019 12:40:02 EDT Exam CR Chest PA/LAT Ordering Physician MD JOAO, PATITO Accession Number [id number] CPT4 Codes 05006 () Reason For Exam cough Report CLINICAL INFORMATION: Cough. Frontal and lateral views of the chest were obtained. Comparison was made to the study dated 10/04/2018. No acute pulmonary disease is noted. Mild chronic appearing interstitial lung changes are visualized, similar to the previous study. The cardiovascular silhouette is within normal limits. There are no pleural effusions. There are degenerative changes of the thoracic spine and shoulders. IMPRESSION: No acute pulmonary disease. No significant change when compared to the previous study. Report Dictated on --- Final --- Dictating Physician: DO PALMER ANTHONY Signed Date and Time: 04/10/2019 1:00 pm Signed by: DO PALMER ANTHONY Transcribed Date and Time: 04/10/2019 1:01 [place] Paco, [place] Incoming Radiology [facility] - 04/10/2019 1:01 PM EDT Patient Name: THEA DORMAN ---Diagnostic Radiology--- Exam Date/Time 04/10/2019 12:40:02 EDT Exam CR Chest PA/LAT Ordering Physician MD JOAO, PATITO Accession Number [id number] CPT4 Codes 71686 () Reason For Exam cough Report CLINICAL INFORMATION: Cough. Frontal and lateral views of the chest were obtained. Comparison was made to the study dated 10/04/2018. No acute pulmonary disease is noted. Mild chronic appearing interstitial lung changes are visualized, similar to the previous study. The cardiovascular silhouette is within normal limits. There are no pleural effusions. There are degenerative changes of the thoracic spine and shoulders. IMPRESSION: No acute pulmonary disease. No significant change when compared to the previous study. Report Dictated on --- Final --- Dictating Physician: DO PALMER ANTHONY Signed Date and Time: 04/10/2019 1:00 pm Signed by: DO PALMER ANTHONY Transcribed Date and Time: 04/10/2019 1:01 [place] Vital Signs Date Time Vital Sign Value Performing Clinician Facility 02-24-2025 14:00-0400 Body height 165.[address] Rupesh Jensen DO Work Phone: 0(009)321-164812 [place] [address] 02-24-2025 14:00-0400 Body mass index (BMI) [Ratio] 32.8 kg/m2 Dr. Rupesh Jensen DO Work Phone: 7(297)[phone] [place] [address] 02-24-2025 14:00-0400 Body temperature 98.2 [degF] Dr. Rupesh Jensen DO Work Phone: 1(330)013-192106 [place] [address] 02-24-2025 14:00-0400 Body weight 89.[address] Rupesh Jensen DO Work Phone: 8(525)977-923912 [place] [address] 02-24-2025 14:00-0400 Diastolic blood pressure 83 mm[Hg] Dr. Rupesh Jensen DO Work Phone: 6(893)216-197912 [place] [address] 02-24-2025 14:00-0400 Heart rate 80 /min Dr. Rupesh Jensen DO Work Phone: 0(885)551-758412 [place] [address] 02-24-2025 14:00-0400 Respiratory rate 18 /min Dr. Rupesh Jensen DO Work Phone: 8(973)104-917812 [place] [address] 02-24-2025 14:00-0400 SaO2% (BldA) [Mass fraction] 98 % Dr. Rupesh Jensen DO Work Phone: 9(957)552-345912 [place] [address] 02-24-2025 14:00-0400 Systolic blood pressure 144 mm[Hg] Dr. Rupesh Jensen DO Work Phone: 5(257)591-062312 [place] [address] 02-21-2025 12:06-0400 Body height 165.1 cm Ashley Amor EXPORT TRAFFIC DEPARTMENT MANAGER.TERMINAL OPERATIONS MANAGER Work Phone: [facility] 02-21-2025 12:06-0400 Body mass index (BMI) [Ratio] 33.31 kg/m2 Ashley Amor EXPORT TRAFFIC DEPARTMENT MANAGER.TERMINAL OPERATIONS MANAGER Work Phone: [facility] 02-21-2025 12:06-0400 Body temperature 98.29 [degF] Ashley Amor EXPORT TRAFFIC DEPARTMENT MANAGER.TERMINAL OPERATIONS MANAGER Work Phone: [facility] 02-21-2025 12:06-0400 Body weight 90.8 kg Ashley Amor EXPORT TRAFFIC DEPARTMENT MANAGER.TERMINAL OPERATIONS MANAGER Work Phone: [facility] 02-21-2025 12:06-0400 Diastolic blood pressure 76 mm[Hg] Ashley Amro EXPORT TRAFFIC DEPARTMENT MANAGER.TERMINAL OPERATIONS MANAGER Work Phone: [facility] 02-21-2025 12:06-0400 Heart rate 70 /min Ashley Amor EXPORT TRAFFIC DEPARTMENT MANAGER.TERMINAL OPERATIONS MANAGER Work Phone: [facility] 02-21-2025 12:06-0400 Respiratory rate 18 /min Ashley Amor EXPORT TRAFFIC DEPARTMENT MANAGER.TERMINAL OPERATIONS MANAGER Work Phone: [facility] 02-21-2025 12:06-0400 SaO2% (BldA) [Mass fraction] 94 % Ashley Amor EXPORT TRAFFIC DEPARTMENT MANAGER.TERMINAL OPERATIONS MANAGER Work Phone: [facility] 02-21-2025 12:06-0400 Systolic blood pressure 131 mm[Hg] Ashley Amor EXPORT TRAFFIC DEPARTMENT MANAGER.TERMINAL OPERATIONS MANAGER Work Phone: [facility] 01-30-2025 15:03-0400 Body height 165.1 cm Lena Varner MD Work Phone: [facility] 01-30-2025 15:03-0400 Body mass index (BMI) [Ratio] 33.78 kg/m2 Lena Varner MD Work Phone: [facility] 01-30-2025 15:03-0400 Body temperature 97.7 [degF] Lena Varner MD Work Phone: [facility] 01-30-2025 15:03-0400 Body weight 92.08 kg Lena Varner MD Work Phone: [facility] 01-30-2025 15:03-0400 Diastolic blood pressure 74 mm[Hg] Lena Varner MD Work Phone: [facility] 01-30-2025 15:03-0400 Heart rate 86 /min Lena Varner MD Work Phone: [facility] 01-30-2025 15:03-0400 SaO2% (BldA) [Mass fraction] 96 % Lena Varner MD Work Phone: [facility] 01-30-2025 15:03-0400 Systolic blood pressure 134 mm[Hg] Lena Varner MD Work Phone: [facility] 10-30-2024 15:56-0400 Body height 165.4 cm Lena Varner MD Work Phone: [facility] 10-30-2024 15:56-0400 Body mass index (BMI) [Ratio] 35.5 kg/m2 Lena Varner MD Work Phone: [facility] 10-30-2024 15:56-0400 Body temperature 98.2 [degF] Lena Varner MD Work Phone: [facility] 10-30-2024 15:56-0400 Body weight 97.07 kg Lena Varner MD Work Phone: [facility] 10-30-2024 15:56-0400 Diastolic blood pressure 84 mm[Hg] Lena Varner MD Work Phone: [facility] 10-30-2024 15:56-0400 Heart rate 77 /min Lena Varner MD Work Phone: [facility] 10-30-2024 15:56-0400 SaO2% (BldA) [Mass fraction] 94 % Lena Varner MD Work Phone: [facility] 10-30-2024 15:56-0400 Systolic blood pressure 116 mm[Hg] Lena Varner MD Work Phone: [facility] 07-24-2024 11:21-0500 Body height 165.4 cm Lena Varner MD Work Phone: [facility] 07-24-2024 11:21-0500 Body mass index (BMI) [Ratio] 35.17 kg/m2 Lena Varner MD Work Phone: [facility] 07-24-2024 11:21-0500 Body temperature 97.2 [degF] Lena Varner MD Work Phone: [facility] 07-24-2024 11:21-0500 Body weight 96.16 kg Lena Varner MD Work Phone: [facility] 07-24-2024 11:21-0500 Diastolic blood pressure 68 mm[Hg] Lena Varner MD Work Phone: [facility] 07-24-2024 11:21-0500 Heart rate 81 /min Lena Varner MD Work Phone: [facility] 07-24-2024 11:21-0500 SaO2% (BldA) [Mass fraction] 94 % Lena Varner MD Work Phone: [facility] 07-24-2024 11:21-0500 Systolic blood pressure 110 mm[Hg] Lena Varner MD Work Phone: [facility] 05-08-2024 14:07-0400 Body height 165.4 cm Lena Varner MD Work Phone: [facility] 05-08-2024 14:07-0400 Body mass index (BMI) [Ratio] 35.34 kg/m2 Lena Varner MD Work Phone: [facility] 05-08-2024 14:07-0400 Body temperature 96.6 [degF] Lena Varner MD Work Phone: [facility] 05-08-2024 14:07-0400 Body weight 96.62 kg Lena Varner MD Work Phone: [facility] 05-08-2024 14:07-0400 Diastolic blood pressure 78 mm[Hg] Lena Varner MD Work Phone: [facility] 05-08-2024 14:07-0400 Heart rate 78 /min Lena Varner MD Work Phone: [facility] 05-08-2024 14:07-0400 SaO2% (BldA) [Mass fraction] 94 % Lena Varner MD Work Phone: [facility] 05-08-2024 14:07-0400 Systolic blood pressure 132 mm[Hg] Lena Varner MD Work Phone: [facility] 03-13-2024 12:07-0400 Body height 165.1 cm Anali Wormald PA-C Work Phone: [facility] 03-13-2024 12:07-0400 Body mass index (BMI) [Ratio] 36.45 kg/m2 Anali Wormald PA-C Work Phone: [facility] 03-13-2024 12:07-0400 Body temperature 98.1 [degF] Anali Wormald PA-C Work Phone: [facility] 03-13-2024 12:07-0400 Body weight 99.35 kg Anali Wormald PA-C Work Phone: [facility] 03-13-2024 12:07-0400 Diastolic blood pressure 70 mm[Hg] Anali Wormald PA-C Work Phone: [facility] 03-13-2024 12:07-0400 Heart rate 92 /min Anali Wormald PA-C Work Phone: [facility] 03-13-2024 12:07-0400 Respiratory rate 18 /min Anali Wormald PA-C Work Phone: [facility] 03-13-2024 12:07-0400 SaO2% (BldA) [Mass fraction] 94 % Anali Pickard PA-C Work Phone: [facility] 03-13-2024 12:07-0400 Systolic blood pressure 126 mm[Hg] Anali Pickard PA-C Work Phone: [facility] 01-25-2024 13:41-0400 Body height 165.4 cm Lena Varner MD Work Phone: [facility] 01-25-2024 13:41-0400 Body mass index (BMI) [Ratio] 37.33 kg/m2 Lena Varner MD Work Phone: [facility] 01-25-2024 13:41-0400 Body temperature 98.8 [degF] Lena Varner MD Work Phone: [facility] 01-25-2024 13:41-0400 Body weight 102.06 kg Lena Varner MD Work Phone: [facility] 01-25-2024 13:41-0400 Diastolic blood pressure 78 mm[Hg] Lena Varner MD Work Phone: [facility] 01-25-2024 13:41-0400 Heart rate 99 /min Lena Varner MD Work Phone: [facility] 01-25-2024 13:41-0400 SaO2% (BldA) [Mass fraction] 95 % Lena Varner MD Work Phone: [facility] 01-25-2024 13:41-0400 Systolic blood pressure 134 mm[Hg] Lena Varner MD Work Phone: [facility] 07-24-2023 16:36-0500 Body temperature 98.2 [degF] Anjana Salinas MD Work Phone: [facility] 07-24-2023 16:36-0500 Diastolic blood pressure 61 mm[Hg] Anjana Salinas MD Work Phone: [facility] 07-24-2023 16:36-0500 Heart rate 63 /min Anjana Salinas MD Work Phone: [facility] 07-24-2023 16:36-0500 Respiratory rate 15 /min Anjana Salinas MD Work Phone: [facility] 07-24-2023 16:36-0500 SaO2% (BldA) [Mass fraction] 94 % Anjana Salinas MD Work Phone: [facility] 07-24-2023 16:36-0500 Systolic blood pressure 124 mm[Hg] Anjana Salinas MD Work Phone: [facility] 07-12-2023 13:28-0500 Diastolic blood pressure 70 mm[Hg] Hari Casanova PA-C Work Phone: [facility] [employer] 07-12-2023 13:28-0500 Systolic blood pressure 120 mm[Hg] Hari Casanova PA-C Work Phone: [facility] [employer] 07-12-2023 12:59-0500 Body height 165.1 cm Hari Casanova PA-C Work Phone: [facility] [employer] 07-12-2023 12:59-0500 Body mass index (BMI) [Ratio] 36.78 kg/m2 Hari Casanova PA-C Work Phone: [facility] [employer] 07-12-2023 12:59-0500 Body temperature 97.7 [degF] Hari Casanova PA-C Work Phone: [facility] [employer] 07-12-2023 12:59-0500 Body weight 100.25 kg Hari Casanova PA-C Work Phone: [facility] [employer] 07-12-2023 12:59-0500 Heart rate 81 /min Hari Casanova PA-C Work Phone: [facility] [employer] 07-12-2023 12:59-0500 SaO2% (BldA) [Mass fraction] 93 % Hair Casanova PA-C Work Phone: [facility] 06-22-2023 14:23-0500 Body height 165.1 cm Ashley Amor EXPORT TRAFFIC DEPARTMENT MANAGER.TERMINAL OPERATIONS MANAGER Work Phone: [facility] 06-22-2023 14:23-0500 Body temperature 97 [degF] Ashley Amor EXPORT TRAFFIC DEPARTMENT MANAGER.TERMINAL OPERATIONS MANAGER Work Phone: [facility] 06-22-2023 14:23-0500 Body weight 101.15 kg Ashley Amor EXPORT TRAFFIC DEPARTMENT MANAGER.TERMINAL OPERATIONS MANAGER Work Phone: [facility] 06-22-2023 14:23-0500 Diastolic blood pressure 67 mm[Hg] Ashley Amor EXPORT TRAFFIC DEPARTMENT MANAGER.TERMINAL OPERATIONS MANAGER Work Phone: [facility] 06-22-2023 14:23-0500 Heart rate 87 /min Ashley Amor EXPORT TRAFFIC DEPARTMENT MANAGER.TERMINAL OPERATIONS MANAGER Work Phone: [facility] 06-22-2023 14:23-0500 Respiratory rate 16 /min Ashley Amor EXPORT TRAFFIC DEPARTMENT MANAGER.TERMINAL OPERATIONS MANAGER Work Phone: [facility] 06-22-2023 14:23-0500 SaO2% (BldA) [Mass fraction] 94 % Ashley Amor EXPORT TRAFFIC DEPARTMENT MANAGER.TERMINAL OPERATIONS MANAGER Work Phone: [facility] 06-22-2023 14:23-0500 Systolic blood pressure 121 mm[Hg] Ashley Amor EXPORT TRAFFIC DEPARTMENT MANAGER.TERMINAL OPERATIONS MANAGER Work Phone: [facility] 06-21-2023 12:22-0500 Diastolic blood pressure 81 mm[Hg] Tunde Patrick MD Work Phone: [facility] [employer] 06-21-2023 12:22-0500 Heart rate 80 /min Tunde Patrick MD Work Phone: [facility] [employer] 06-21-2023 12:22-0500 Systolic blood pressure 124 mm[Hg] Tunde Patrick MD Work Phone: [facility] [employer] 06-21-2023 10:54-0500 Body mass index (BMI) [Ratio] 37.44 kg/m2 Tunde Patrick MD Work Phone: [facility] [employer] 06-21-2023 10:54-0500 Body temperature 97.59 [degF] Tunde Patrick MD Work Phone: [facility] [employer] 06-21-2023 10:54-0500 Body weight 102.06 kg Tunde Patrick MD Work Phone: [facility] [employer] 06-21-2023 10:54-0500 Respiratory rate 16 /min Tunde Patrick MD Work Phone: [facility] [employer] 06-21-2023 10:54-0500 SaO2% (BldA) [Mass fraction] 95 % Tunde Patrick MD Work Phone: [facility] [employer] 03-24-2023 13:43-0400 Body height 165.1 cm Anjana Salinas MD Work Phone: [facility] [employer] 03-24-2023 13:43-0400 Body mass index (BMI) [Ratio] 37.13 kg/m2 Anjana Salinas MD Work Phone: [facility] [employer] 03-24-2023 13:43-0400 Body temperature 95.5 [degF] Anjana Salinas MD Work Phone: [facility] [employer] 03-24-2023 13:43-0400 Body weight 101.2 kg Anjana Salinas MD Work Phone: [facility] [employer] 03-24-2023 13:43-0400 Diastolic blood pressure 73 mm[Hg] Anjana Salinas MD Work Phone: [facility] [employer] 03-24-2023 13:43-0400 Heart rate 77 /min Anjana Salinas MD Work Phone: [facility] [employer] 03-24-2023 13:43-0400 Systolic blood pressure 121 mm[Hg] Anjana Salinas MD Work Phone: [facility] [employer] 11-16-2022 13:09-0400 Body height 165.1 cm Anjana Salinas MD Work Phone: [facility] [employer] 11-16-2022 13:09-0400 Body mass index (BMI) [Ratio] 37.58 kg/m2 Anjana Salinas MD Work Phone: [facility] [employer] 11-16-2022 13:09-0400 Body temperature 97.3 [degF] Anjana Salinas MD Work Phone: [facility] 11-16-2022 13:09-0400 Body weight 102.42 kg Anjana Salinas MD Work Phone: [facility] [employer] 11-16-2022 13:09-0400 Diastolic blood pressure 72 mm[Hg] Anjana Salinas MD Work Phone: [facility] [employer] 11-16-2022 13:09-0400 Heart rate 86 /min Anjnaa Salinas MD Work Phone: [facility] 11-16-2022 13:09-0400 Systolic blood pressure 113 mm[Hg] Anjana Salinas MD Work Phone: [facility] [employer] 08-18-2022 13:29-0500 Body height 165.1 cm Anjana Salinas MD Work Phone: [facility] [employer] 08-18-2022 13:29-0500 Body mass index (BMI) [Ratio] 38.92 kg/m2 Anjana Salinas MD Work Phone: [facility] [employer] 08-18-2022 13:29-0500 Body temperature 97.11 [degF] Anjana Salinas MD Work Phone: [facility] [employer] 08-18-2022 13:29-0500 Body weight 106.1 kg Anjana Salinas MD Work Phone: [facility] [employer] 08-18-2022 13:29-0500 Diastolic blood pressure 70 mm[Hg] Anjana Salinas MD Work Phone: [facility] [employer] 08-18-2022 13:29-0500 Heart rate 79 /min Anjnaa Salinas MD Work Phone: [facility] [employer] 08-18-2022 13:29-0500 Respiratory rate 17 /min Anjana Salinas MD Work Phone: [facility] [employer] 08-18-2022 13:29-0500 Systolic blood pressure 111 mm[Hg] Anjana Salinas MD Work Phone: [facility] [employer] 04-14-2022 18:50-0400 Diastolic blood pressure 72 mm[Hg] Gonzalo Mae MD Work Phone: [facility] 04-14-2022 18:50-0400 Heart rate 70 /min Gonzalo Mae MD Work Phone: [facility] 04-14-2022 18:50-0400 Respiratory rate 16 /min Gonzalo Mae MD Work Phone: [facility] 04-14-2022 18:50-0400 SaO2% (BldA) [Mass fraction] 98 % Gonzalo Mae MD Work Phone: [facility] 04-14-2022 18:50-0400 Systolic blood pressure 128 mm[Hg] Gonzalo Mae MD Work Phone: [facility] 04-14-2022 17:48-0400 Body temperature 98.6 [degF] Gonzalo Mae MD Work Phone: [facility] 12-03-2021 15:45-0400 Diastolic blood pressure 56 mm[Hg] Lauraibrahima Garduno DO Work Phone: [facility] 12-03-2021 15:45-0400 Heart rate 80 /min Lauraibrahima Garduno DO Work Phone: [facility] 12-03-2021 15:45-0400 Respiratory rate 16 /min Lauraibrahima Garduno DO Work Phone: [facility] 12-03-2021 15:45-0400 SaO2% (BldA) [Mass fraction] 100 % Lauraibrahima Garduno DO Work Phone: [facility] 12-03-2021 15:45-0400 Systolic blood pressure 94 mm[Hg] Lauraibrahima Garduno DO Work Phone: [facility] 12-03-2021 13:46-0400 Body height 165.1 cm Lauraibrahima Garduno DO Work Phone: [facility] 12-03-2021 13:46-0400 Body mass index (BMI) [Ratio] 38.27 kg/m2 Laura Garduno DO [facility] 12-03-2021 13:46-0400 Body temperature 99.1 [degF] Laura Garduno DO Work Phone: [facility] 12-03-2021 13:46-0400 Body weight 104.33 kg Laura Garduno DO Work Phone: [facility] 08-18-2021 06:01-0500 Body temperature 96.21 [degF] Joe Penny MD Work Phone: [facility] 08-18-2021 06:01-0500 Diastolic blood pressure 70 mm[Hg] Joe Penny MD Work Phone: [facility] 08-18-2021 06:01-0500 Heart rate 60 /min Joe Penny MD Work Phone: [facility] 08-18-2021 06:01-0500 Respiratory rate 18 /min Joe Penny MD Work Phone: [facility] 08-18-2021 06:01-0500 SaO2% (BldA) [Mass fraction] 91 % Joe Penny MD Work Phone: [facility] 08-18-2021 06:01-0500 Systolic blood pressure 129 mm[Hg] Joe Penny MD Work Phone: [facility] 08-14-2021 21:56-0500 Body mass index (BMI) [Ratio] 38.77 kg/m2 Joe Penny MD Work Phone: [facility] 08-14-2021 21:56-0500 Body weight 105.69 kg Joe Penny MD Work Phone: [facility] 08-11-2021 07:18-0500 Body height 165.1 cm Joe Penny MD Work Phone: [facility] 03-03-2021 22:56-0400 Diastolic blood pressure 71 mm[Hg] Patito Amaya MD Work Phone: [facility] Work Phone: 03-03-2021 22:56-0400 Heart rate 69 /min Patito Amaya MD Work Phone: [facility] Work Phone: 03-03-2021 22:56-0400 Respiratory rate 16 /min Patito Amaya MD Work Phone: [facility] Work Phone: 03-03-2021 22:56-0400 SaO2% (BldA) [Mass fraction] 96 % Patito Amaya MD Work Phone: [facility] Work Phone: 03-03-2021 22:56-0400 Systolic blood pressure 131 mm[Hg] Patito Amaya MD Work Phone: [facility] Work Phone: 03-03-2021 21:03-0400 Body temperature 98.8 [degF] Patito Amaya MD Work Phone: [facility] Work Phone: 02-22-2021 14:33-0400 Body height 165.1 cm Gonzalo Mae MD Work Phone: [facility] Work Phone: 02-22-2021 14:33-0400 Body mass index (BMI) [Ratio] 36.61 kg/m2 Gonzalo Mae MD Work Phone: [facility] Work Phone: 02-22-2021 14:33-0400 Body temperature 98.49 [degF] Gonzalo Mae MD Work Phone: [facility] Work Phone: 02-22-2021 14:33-0400 Body weight 99.79 kg Gonzalo Mae MD Work Phone: [facility] Work Phone: 02-22-2021 14:33-0400 Diastolic blood pressure 88 mm[Hg] Gonzalo Mae MD Work Phone: [facility] Work Phone: 02-22-2021 14:33-0400 Heart rate 97 /min Gonzalo Mea MD Work Phone: [facility] Work Phone: 02-22-2021 14:33-0400 Respiratory rate 16 /min Gonzalo Mae MD Work Phone: [facility] Work Phone: 02-22-2021 14:33-0400 SaO2% (BldA) [Mass fraction] 98 % Gonzalo Mae MD Work Phone: [facility] Work Phone: 02-22-2021 14:33-0400 Systolic blood pressure 182 mm[Hg] Gonzalo Mae MD Work Phone: [facility] Work Phone: 01-31-2021 13:10-0400 Body temperature 98.01 [degF] Gonzalo Mae MD Work Phone: [facility] Work Phone: 01-31-2021 13:10-0400 Diastolic blood pressure 81 mm[Hg] Gonzalo Mae MD Work Phone: [facility] Work Phone: 01-31-2021 13:10-0400 Heart rate 88 /min Gonzalo Mae MD Work Phone: [facility] Work Phone: 01-31-2021 13:10-0400 Respiratory rate 12 /min Gonzalo Mae MD Work Phone: [facility] Work Phone: 01-31-2021 13:10-0400 SaO2% (BldA) [Mass fraction] 95 % Gonzalo Mae MD Work Phone: [facility] Work Phone: 01-31-2021 13:10-0400 Systolic blood pressure 130 mm[Hg] Gonzalo Mae MD Work Phone: [facility] Work Phone: 08-05-2020 19:48-0500 BMI (Body Mass Index) 34.95 kg/m2 Shanice Hamilton [facility], [place] 08-05-2020 19:48-0500 Body Temperature 98.71 [degF] [facility] [place] [facility]-2020 19:48-0500 Body weight 95.25 kg Shanice Dorsey [facility] , [place] 08-05-2020 19:48-0500 BP Diastolic 72 mm[Hg] [facility] [place] 08-05-2020 19:48-0500 BP Systolic 164 mm[Hg] [facility] [place] 08-05-2020 19:48-0500 Height 165.1 cm Shanice Dorsey [facility] , [place] 08-05-2020 19:48-0500 Pulse (Heart Rate) 76 /min [facility] [place] 08-05-2020 19:48-0500 Pulse Oximetry 96 % [facility] [place] 08-05-2020 19:48-0500 Respiratory Rate 16 /min Shanice Dorsey [facility], [place] 12-22-2019 17:43-0400 BMI (Body Mass Index) 36.61 kg/m2 Gonzalo Hamilton [facility], [place] 12-22-2019 17:43-0400 Body Temperature 97.9 [degF] [facility] [place] 12-[facility]-2019 17:43-0400 Body weight 99.79 [facility] [place] 12-22-2019 17:43-0400 BP Diastolic 85 mm[Hg] [facility] [place] 12-22-2019 17:43-0400 BP Systolic 151 mm[Hg] [facility] [place] 12-22-2019 17:43-0400 Pulse (Heart Rate) 112 /min [facility] [place] 12-22-2019 17:43-0400 Pulse Oximetry 95 % [facility] [place] 12-22-2019 17:43-0400 Respiratory Rate 18 /min [facility] [place] 04-13-2019 18:47-0400 BMI (Body Mass Index) 38.27 kg/m2 Bronwyn Hamilton [facility], [place] 04-13-2019 18:47-0400 Body Temperature 99.1 [degF] Bronwyn Porras [facility], [place] 04-13-2019 18:47-0400 Body weight 104.33 kg [facility] [place] 04-13-2019 18:47-0400 BP Diastolic 70 mm[Hg] Bronwyn Porras [facility], [place] 04-13-2019 18:47-0400 BP Systolic 124 mm[Hg] Bronwyn [facility], [place] 04-13-2019 18:47-0400 Height 165.1 cm Bronwyn Porras [facility], [place] 04-13-2019 18:47-0400 Pulse (Heart Rate) 96 /min Bronwyn Hamilton [facility], [place] 04-13-2019 18:47-0400 Pulse Oximetry 94 % Bronwyn Porras [facility], [place] 04-13-2019 18:47-0400 Respiratory Rate 16 /min Bronwyn Porras [facility], [place] 04-10-2019 13:20-0400 BP Diastolic 84 mm[Hg] [facility] [place] 04-10-2019 13:20-0400 BP Systolic 138 mm[Hg] [facility] [place] 04-10-2019 13:20-0400 Pulse (Heart Rate) 85 /min [facility] [place] 04-10-2019 13:20-0400 Pulse Oximetry 96 % [facility] [place] 04-10-2019 13:20-0400 Respiratory Rate 16 /min [facility] [place] 04-10-2019 12:13-0400 BMI (Body Mass Index) 39.94 kg/m2 Patito Hamilton [facility], [place] 04-10-2019 12:13-0400 Body Temperature 98.49 [degF] [facility] [place] 04-10-2019 12:130 Body weight 108.86 kg Patito Amaya [facility], [place] 04-10-2019 12:130400 Height 165.1 cm Patito Amaya [facility], [facility] Encounters Encounter Date Encounter Type Care Provider Facility Start: 03-10-2025 End: 03-10-2025 Emergency department patient visit [facility] Facility:[facility] Start: 02-24-2025 End: 02-24-2025 Emergency department patient visit Dr. Rupesh Jensen DO Work Phone: -Emergency Department Work Phone: Start: 02-21-2025 End: 02-21-2025 Office outpatient visit 25 minutes Ashley Amor APRN.CNP Work Phone: [facility] Comment on above: Rash (Primary Dx) Start: 02-21-2025 End: 02-21-2025 ambulatory [facility] Facility:[facility] Start: 01-31-2025 End: 04-02-2025 Follow-up encounter Lena Varner MD Work Phone: [facility] Comment on above: CBC auto differentia l, Comprehensive metabolic panel, Lipid panel, Additional followed-up results: 3 Start: 01-30-2025 End: 01-30-2025 Office outpatient visit 25 minutes Lena Varner MD Work Phone: [facility] Comment on above: Type 2 diabetes iris itus without complication, without long- term current use of insulin (HCC) (Primary Dx); Severe obesity (BMI 35.0-39.9) with comorbidity (HCC); Major depressive disorder, recurrent severe without psychotic features (HCC); Essential hypertension, benign; Screening mammogram, encounter for; Lumbar back pain; Current smoker Start: 01-30-2025 End: 01-30-2025 ambulatory [facility] Start: 01-27-2025 End: 01-27-2025 [facility] Start: 01-14-2025 End: 01-14-2025 Emergency department patient visit LENA VARNER Facility:[facility] Start: 01-05-2025 End: 01-09-2025 ambulatory Jana Morin RN [facility] Communication Start: 01-05-2025 End: 01-09-2025 Patient encounter procedure Jana Morin RN [facility] Start: 01-05-2025 End: 01-05-2025 [facility] Start: 11-08-2024 End: 11-08-2024 Telephone encounter [facility] Comment on above: Orders (CT-Lung Scre en) Start: 10-30-2024 End: 10-30-2024 [facility] Start: 10-30-2024 End: 10-30-2024 Office outpatient visit 25 minutes Lena Varner MD Work Phone: [facility] Comment on above: Type 2 diabetes iris itus without complication, without long- term current use of insulin ([facility]) ([facility]) (Primary Dx); Major depressive disorder, recurrent severe without psychotic features (HCC); HTN (hypertension), benign; Hypercholesteremia; Essential hypertension, benign Start: 10-30-2024 End: 10-30-2024 [facility] Start: 10-09-2024 End: 10-10-2024 Telephone encounter Lena Varner MD Work Phone: [facility] Comment on above: Orders (CT lung scre ening low dose) Start: 10-07-2024 End: 10-08-2024 Refill Lena Varner MD Work Phone: [facility] Comment on above: Type 2 diabetes iris itus without complication, without long- term current use of insulin ([facility]/HCC) ([facility]) Start: 09-18-2024 End: 09-18-2024 Telephone encounter Lena Varner MD Work Phone: [facility] Comment on above: Other; Release of In formation Start: 09-07-2024 End: 09-07-2024 Refill Lena Varner MD Work Phone: [facility] Comment on above: Type 2 diabetes iris itus without complication, without long- term current use of insulin ([facility]) ([facility]) Start: 09-05-2024 End: 09-10-2024 Telephone encounter Lena Varner MD Work Phone: [facility] Start: 09-05-2024 End: 09-05-2024 ambulatory LENA VARNER [facility] Start: 08-20-2024 End: 08-20-2024 Office outpatient visit 15 minutes L[facility] Varner MD [facility] Comment on above: Yeast infection (Amira kajal Dx); Type 2 diabetes mellitus without complication, without long-term current use of insulin ([facility]) ([facility]) Start: 08-20-2024 End: 08-20-2024 Refill Lena Varner MD Work Phone: [facility] Comment on above: Type 2 diabetes iris itus without complication, without long- term current use of insulin ([facility]) ([facility]) Start: 07-27-2024 End: 08-13-2024 Telephone encounter Lena Varner MD Work Phone: [facility] Comment on above: Orders (CT-Lung Scre en) Start: 07-24-2024 End: 07-24-2024 Office outpatient visit 25 minutes Lena Varner MD Work Phone: [facility] Comment on above: Hypercholesteremia ( Primary Dx); Type 2 diabetes mellitus without complication, without long-term current use of insulin ([facility]) ([facility]); Major depressive disorder, recurrent severe without psychotic features (HCC); Current smoker; HTN (hypertension), benign Start: 07-24-2024 End: 07-24-2024 ambulatory LENA VARNER [facility] Start: 05-08-2024 End: 05-08-2024 Office outpatient visit 25 minutes Lena Varner MD Work Phone: [facility] Comment on above: Hypercholesteremia ( Primary Dx); Type 2 diabetes mellitus without complication, without long-term current use of insulin (CMS/HCC) ([facility]); Major depressive disorder, recurrent severe without psychotic features (HCC); Current smoker Start: 05-08-2024 End: 05-08-2024 [facility] Start: 04-26-2024 End: 05-08-2024 Refill Lena Varner MD Work Phone: [facility] [place] Comment on above: Type 2 diabetes iris itus without complication, without long- term current use of insulin ([facility]) ([facility]) Start: 04-19-2024 End: 04-19-2024 Refill Lena Varner MD Work Phone: [facility] Start: 03-13-2024 End: 03-13-2024 ambulatory CLARE ROBLEDO Facility:[facility] Start: 03-13-2024 End: 03-13-2024 Patient encounter procedure Anali Pickard PA-C Work Phone: [facility] Comment on above: Leukocytes in urine (Primary Dx); Urinary urgency; Sensation of pressure in bladder area; Dysuria Start: 03-06-2024 End: 03-06-2024 Refill Lena Varner MD Work Phone: [facility] Comment on above: Type 2 diabetes iris itus without complication, without long- term current use of insulin ([facility]) ([facility]) Start: 02-28-2024 End: 02-28-2024 Refill Lena Varner MD Work Phone: [facility] Comment on above: Hypercholesteremia Start: 02-26-2024 End: 02-26-2024 Telephone encounter Hari Casanova PA-C Work Phone: [facility] Comment on above: Med Refill (amLODIPi ne (Norvasc) 10 MG tablet , irbesartan (Avapro) 150 MG tablet //) Essential hypertensi on, benign Start: 01-30-2024 End: 02-14-2024 Telephone encounter Lena Varner MD Work Phone: [facility] Start: 01-25-2024 End: 01-25-2024 Office outpatient visit 25 minutes Lena Varner MD Work Phone: [facility] Comment on above: Type 2 diabetes iris itus without complication, without long- term current use of insulin ([facility]) ([facility]) (Primary Dx); Hypercholesteremia Start: 11-15-2023 Refill Lena schaeffer MD Work Phone: [facility] Comment on above: Hypercholesteremia Start: 11-14-2023 Refill Lena schaeffer MD Work Phone: [facility] Comment on above: Hypercholesteremia Start: 08-16-2023 Refill Anjana polk MD Work Phone: [facility] Comment on above: Essential hypertensi on, benign; Type 2 diabetes mellitus without complication, without long-term current use of insulin (CMS/[facility]) (HCC) Start: 07-24-2023 End: 07-24-2023 Emergency department patient visit Anjana Salinas MD Work Phone: [facility] Comment on above: Epigastric pain (Amira kajal Dx); Gastroesophageal reflux disease, unspecified whether esophagitis present; Hiatal hernia Start: 07-12-2023 End: 07-12-2023 Office outpatient visit 25 minutes Hari Casanova PA-C Work Phone: [facility] Comment on above: Hypercholesteremia ( Primary Dx); Type 2 diabetes mellitus without complication, without long-term current use of insulin ([facility]) (HCC); Flu vaccine need Start: 06-22-2023 End: 06-22-2023 Patient encounter procedure Ashley Amor TERMINAL OPERATIONS MANAGER Work Phone: [facility] Comment on above: UTI symptoms (Primar y Dx) Start: 06-21-2023 End: 06-21-2023 Emergency department patient visit Tudne Patrick MD Work Phone: [facility] Comment on above: Generalized abdomina l pain (Primary Dx) Start: 04-28-2023 Refill Anjana polk MD Work Phone: [facility] Start: 04-12-2023 End: 04-12-2023 Subsequent hospital visit by physician Anjana Salinas MD Work Phone: [facility] Radiology Comment on above: Pneumonia, unspecifi ed organism Pneumonia, unspecifi ed organism (Primary Dx) Start: 03-24-2023 End: 03-24-2023 Office outpatient visit 25 minutes Anjana Salinas MD Work Phone: [facility] Comment on above: Type 2 diabetes iris itus without complication, without long- term current use of insulin ([facility]) ([facility]) (Primary Dx); Severe obesity (BMI 35.0-39.9) with comorbidity ([facility]); Pneumonia due to infectious organism, unspecified laterality, unspecified part of lung; Diarrhea, unspecified type Start: 11-16-2022 End: 11-16-2022 Office outpatient visit 25 minutes Anjana Salinas MD Work Phone: [facility] Comment on above: Type 2 diabetes iris itus without complication, without long- term current use of insulin ([facility]) (HCC) (Primary Dx); Essential hypertension, benign Start: 10-26-2022 Refill Judith Ruiz RN [facility] Start: 08-18-2022 End: 08-18-2022 Office outpatient visit 25 minutes Ajnana Salinas MD Work Phone: [facility] Comment on above: Type 2 diabetes iris itus without complication, without long- term current use of insulin ([facility]/HCC) (HCC) (Primary Dx); Essential hypertension, benign; Need for influenza vaccination Start: 05-04-2022 [facility] Start: 04-14-2022 End: 04-14-2022 Emergency department patient visit Gonzalo Mae [facility] Start: 04-14-2022 End: 04-14-2022 Emergency department patient visit [facility] MD [facility] Comment on above: Viral upper respirat ory tract infection (Primary Dx); Diarrhea, unspecified type; Acute cystitis without hematuria Start: 12-19-2021 Refill Sae Shultz MD Work Phone: Endocrinology Comment on above: Refill Request Start: 12-03-2021 End: 12-03-2021 Emergency department patient visit Laura Garduno [facility] Start: 12-03-2021 End: 12-03-2021 Emergency department patient visit Laura Garduno DO [facility] Comment on above: URI with cough and c ongestion (Primary Dx) Start: 11-27-2021 Chart Update Referring Prov delio Boone [facility]-S jordana SJW 450 DO Work Phone: Start: 08-11-2021 End: 08-18-2021 Evaluation and management of inpatient Joe Penny MD Work Phone: [facility] Comment on above: Mediastinal mass (Pr imary Dx); Hyperlipidemia, unspecified hyperlipidemia type; Type 2 diabetes mellitus without complication, without long-term current use of insulin ([facility]) Start: 06-23-20[facility] Start: 06-23-2021 End: 06-23-2021 Subsequent hospital visit by physician Anjana Salinas MD Work Phone: Jose Flores [place] Comment on above: Arrived Start: 06-19-2021 ambulatory Anjana Salinas [facility] Start: 03-24-2021 AUDIT Provider DORI mcleod Work Phone: [facility] Work Phone: Start: 03-18-2021 AUDIT Saurabh Rosemarie Work Phone: [facility] Adina I Work Phone: Start: 03-03-2021 End: 03-03-2021 Emergency department patient visit Patito Amaya MD Work Phone: [facility] Comment on above: Diarrhea, unspecifie d type (Primary Dx); General weakness Start: 02-22-2021 End: 02-22-2021 Emergency department patient visit Gonzalo Mae MD Work Phone: [facility] Comment on above: Acute cystitis witho ut hematuria (Primary Dx) Start: 01-31-2021 End: 01-31-2021 Emergency department patient visit Gonzalo Mae MD Work Phone: [facility] Comment on above: Acute cystitis witho ut hematuria (Primary Dx) Start: 08-05-2020 End: 08-05-2020 Emergency department patient visit Shanice Dorsey Work Phone: [facility] Comment on above: Acute cystitis with hematuria (Primary Dx) Start: 02-19-2020 End: 02-19-2020 Subsequent hospital visit by physician [facility] Comment on above: Arrived Start: 12-22-2019 End: 12-22-2019 Emergency department patient visit Gonzalo Landeros Work Phone: [facility] Comment on above: Acute UTI (urinary t ract infection) (Primary Dx) Start: 10-17-2019 End: 10-17-2019 Subsequent hospital visit by physician Anjana Salinas Work Phone: [facility] [address] [place] [facility] Comment on above: Pneumonia of left tre ng due to infectious organism, unspecified part of lung Start: 04-13-2019 End: 04-13-2019 Emergency department patient visit Bronwyn Porras Work Phone: [facility] Comment on above: Acute upper respirat ory infection (Primary Dx); COPD exacerbation (HCC); Acute upper respiratory infection Start: 04-10-2019 End: 04-10-2019 Emergency department patient visit Patito Amaya Work Phone: [facility] ED Comment on above: Bronchitis (Primary Dx) Procedures Date Procedure Procedure Detail Performing Clinician Start: 01-30-2025 Complete blood count with white cell differential, automated Lena Varner MD Work Phone: Start: 01-30-2025 Comprehensive metabo lic panel Lena Varner MD Work Phone: Start: 01-30-2025 Lipid panel Lena rodgers MD Work Phone: Start: 01-30-2025 Lipid 1996 panel - S regla or Plasma Lena Varner MD Work Phone: Start: 10-30-2024 Lipid 1996 panel - S regla or Plasma Lena Varner MD Work Phone: Start: 07-24-2024 Lipid 1996 panel - S regla or Plasma Lena Varner MD Work Phone: Start: 05-08-2024 Complete blood count with white cell differential, automated Lena Varner MD Work Phone: Start: 05-08-2024 End: 05-08-2024 Comprehensive metabolic panel Lena Varner MD Work Phone: Start: 05-08-2024 Lipid panel Lena rodgers MD Work Phone: Start: 05-08-2024 Lipid 1996 panel - S regla or Plasma Lena Varner MD Work Phone: Start: 03-13-2024 Urnls dip stick/tabl et rgnt auto w/o microscopy [facility] Provider Start: 01-25-2024 Lipid 1996 panel - S regla or Plasma Lena Varner MD Work Phone: Start: 10-18-2023 Lipid 1996 panel - S regla or Plasma Lena Varner MD Work Phone: Start: 07-24-2023 Ct abdomen & pelvis w/contrast material Kali Estrada EXPORT TRAFFIC DEPARTMENT MANAGER - [facility] Work Phone: Start: 07-24-2023 Ecg routine ecg w/le ast 12 lds trcg only w/o i&r Kali Estrada EXPORT TRAFFIC DEPARTMENT MANAGER - TERMINAL OPERATIONS MANAGER Work Phone: Start: 07-24-2023 Comprehensive metabo lic panel Kali Estrada EXPORT TRAFFIC DEPARTMENT MANAGER - [facility] Work Phone: Start: 06-22-2023 Urnls dip stick/tabl et rgnt auto w/o microscopy [facility] Provider Start: 06-21-2023 Comprehensive metabo lic panel Tunde Patrick MD Work Phone: Start: 06-18-2023 Colonoscopy Ashley Hopson PRN.TERMINAL OPERATIONS MANAGER Work Phone: Start: 04-12-2023 Radiologic exam ches t 2 views Anjana Salinas MD Work Phone: Start: 04-12-2023 Lipid 1996 panel - S regla or Plasma Anjana Salinas MD Work Phone: Start: 04-12-2023 Thyrotropin [Units/v olume] in Serum or Plasma Anjana Salinas MD Work Phone: Start: 03-24-2023 Hemoglobin glycosylated a1c Anjana Salinas MD Work Phone: Start: 11-16-2022 Hemoglobin glycosylated a1c Anjana Salinas MD Work Phone: Start: 08-18-2022 Hemoglobin glycosylated a1c Anjana Salinas MD Work Phone: Start: 05-04-2022 Lipid 1995 panel - S regla or Plasma Anjana Salinas MD Work Phone: Start: 05-04-2022 Thyrotropin [Units/v olume] in Serum or Plasma Anjana Salinas MD Work Phone: Start: 04-14-2022 ADD ON LAB TEST Cherise Thomas MD Work Phone: Start: 04-14-2022 Urnls dip stick/tabl et rgnt auto w/o microscopy Gonzalo Mae MD Work Phone: Start: 04-14-2022 Comprehensive metabo lic panel Gonzalo Mae MD Work Phone: Start: 04-14-2022 COVID-19, FLU A/B, A ND RSV COMBO Gonzalo Mae MD Work Phone: Start: 12-03-2021 Radiologic exam ches t single view Laura Garduno DO Work Phone: Start: 12-03-2021 COVID-19, FLU A/B, A ND RSV COMBO Laura Garduno DO Work Phone: Start: 12-03-2021 Comprehensive metabo lic panel Laura Garduno DO Work Phone: Start: 12-03-2021 Ecg routine ecg w/le ast 12 lds w/i&r Luara Garduno DO Work Phone: Start: 08-18-2021 Gluc bld gluc mntr d ev cleared fda spec home use Joe Penny MD Work Phone: Start: 08-18-2021 HOME O2 EVAL (DESATU RATION SCREEN) Monse Milian DO Work Phone: Start: 08-18-2021 Gluc bld gluc mntr d ev cleared fda spec home use Monse Milian DO Work Phone: Start: 08-18-2021 Gluc bld gluc mntr d ev cleared fda spec home use Lisa Knutson MD Work Phone: Start: 08-18-2021 C-reactive protein Joanne Knutson MD Work Phone: Start: 08-18-2021 Fibrin dgradj produc ts d-dimer quantitative Lisa Knutson MD Work Phone: Start: 08-17-2021 Gluc bld gluc mntr d ev cleared fda spec home use Lisa Knutson MD Work Phone: Start: 08-17-2021 Gluc bld gluc mntr d ev cleared fda spec home use Lisa Knutson MD Work Phone: Start: 08-17-2021 Gluc bld gluc mntr d ev cleared fda spec home use Lisa Knutson MD Work Phone: Start: 08-17-2021 Gluc bld gluc mntr d ev cleared fda spec home use Lisa Knutson MD Work Phone: Start: 08-17-2021 C-reactive protein Joanne Knutson MD Work Phone: Start: 08-17-2021 Fibrin dgradj produc ts d-dimer quantitative Lisa Knutson MD Work Phone: Start: 08-16-2021 Gluc bld gluc mntr d ev cleared fda spec home use Lisa Knutson MD Work Phone: Start: 08-16-2021 Gluc bld gluc mntr d ev cleared fda spec home use Lisa Knutson MD Work Phone: Start: 08-16-2021 Gluc bld gluc mntr d ev cleared fda spec home use Lisa Knutson MD Work Phone: Start: 08-16-2021 Gluc bld gluc mntr d ev cleared fda spec home use Lisa Knutson MD Work Phone: Start: 08-16-2021 C-reactive protein Joanne Knutson MD Work Phone: Start: 08-16-2021 Fibrin dgradj produc ts d-dimer quantitative Lisa Knutson MD Work Phone: Start: 08-15-2021 Gluc bld gluc mntr d ev cleared fda spec home use Lisa Knutson MD Work Phone: Start: 08-15-2021 Gluc bld gluc mntr d ev cleared fda spec home use Lisa Knutson MD Work Phone: Start: 08-15-2021 Gluc bld gluc mntr d ev cleared fda spec home use Lisa Knutson MD Work Phone: Start: 08-15-2021 Gluc bld gluc mntr d ev cleared fda spec home use Joe Penny MD Work Phone: Start: 08-15-2021 Blood count complete auto&auto difrntl wbc Lisa Knutson MD Work Phone: Start: 08-15-2021 C-reactive protein Joanne Knutson MD Work Phone: Start: 08-14-2021 Gluc bld gluc mntr d ev cleared fda spec home use Joe Penny MD Work Phone: Start: 08-14-2021 Gluc bld gluc mntr d ev cleared fda spec home use Joe Penny MD Work Phone: Start: 08-14-2021 C-reactive protein Joanne Knutson MD Work Phone: Start: 08-14-2021 Fibrin dgradj produc ts d-dimer quantitative Lisa Knutson MD Work Phone: Start: 08-14-2021 Gluc bld gluc mntr d ev cleared fda spec home use Joe Penny MD Work Phone: Start: 08-14-2021 COVID-19 Joe walter MD Work Phone: Start: 08-14-2021 End: 08-14-2021 Gluc bld gluc mntr dev cleared fda spec home use Joe Penny MD Work Phone: Start: 08-13-2021 Gluc bld gluc mntr d ev cleared fda spec home use Joe Penny MD Work Phone: Start: 08-13-2021 Gluc bld gluc mntr d ev cleared fda spec home use Joe Penny MD Work Phone: Start: 08-13-2021 Gluc bld gluc mntr d ev cleared fda spec home use Joe Penny MD Work Phone: Start: 08-13-2021 Radiologic exam ches t single view Harpal Henry MD Work Phone: Start: 08-12-2021 Radiologic exam ches t single view Harpal Henry MD Work Phone: Start: 08-12-2021 Gluc bld gluc mntr d ev cleared fda spec home use Joe Penny MD Work Phone: Start: 08-12-2021 Gluc bld gluc mntr d ev cleared fda spec home use Joe Penny MD Work Phone: Start: 08-12-2021 Radiologic exam ches t single view Harpal Henry MD Work Phone: Start: 08-12-2021 Gluc bld gluc mntr d ev cleared fda spec home use Joe Penny MD Work Phone: Start: 08-12-2021 Gluc bld gluc mntr d ev cleared fda spec home use Joe Penny MD Work Phone: Start: 08-12-2021 Radiologic exam ches t single view Tawanna Lawler MD Work Phone: Start: 08-12-2021 Basic metabolic pane l calcium total Tawanna Lawler MD Work Phone: Start: 08-11-2021 Gluc bld gluc mntr d ev cleared fda spec home use Joe Penny MD Work Phone: Start: 08-11-2021 Gluc bld gluc mntr d ev cleared fda spec home use Joe Penny MD Work Phone: Start: 08-11-2021 OPERATIVE REPORT 3m Sca nning Start: 08-11-2021 Radiologic exam ches t single view Tawanna Lawler MD Work Phone: Start: 08-11-2021 Gluc bld gluc mntr d ev cleared fda spec home use Joe Penny MD Work Phone: Start: 08-11-2021 Gluc bld gluc mntr d ev cleared fda spec home use Joe Penny MD Work Phone: Start: 08-11-2021 Cytopath fl nongyn, sm/fltr Joe Penny MD Work Phone: Start: 03-03-2021 Comprehensive metabo lic panel Patito Amaya MD Work Phone: Start: 03-03-2021 COVID-19, RAPID Patito mariee MD Work Phone: Start: 03-03-2021 Ecg routine ecg w/le ast 12 lds w/i&r Patito Amaya MD Work Phone: Start: 02-22-2021 Urnls dip stick/tabl et rgnt auto w/o microscopy Gonzalo Mae MD Work Phone: Start: 01-31-2021 Urnls dip stick/tabl et rgnt auto w/o microscopy Gonzalo Mae MD Work Phone: Start: 08-05-2020 Urnls dip stick/tabl et rgnt auto w/o microscopy Shanice Hernandezjunie Work Phone: Start: 02-19-2020 Mammography Anjana Salinas MD Work Phone: Start: 12-22-2019 End: 12-22-2019 Gluc bld gluc mntr dev cleared fda spec home use Gonzalo Landeros Work Phone: Start: 12-22-2019 Urnls dip stick/tabl et rgnt auto w/o microscopy Gonzalo Landeros Work Phone: Start: 10-17-2019 Radiologic exam ches t 2 views Anjana Salinas Work Phone: Start: 07-03-2019 Colonoscopy Laura renteria DO Work Phone: Start: 04-13-2019 Radiologic exam ches t 2 views Bronwyn Porras Work Phone: Start: 04-13-2019 NEBULIZER TX INTERMITTENT Bronwyn Quezadayamilet Work Phone: Start: 04-10-2019 Iaad ia streptococcu s group a Patito Joao Work Phone: Start: 04-10-2019 Radiologic exam ches t 2 views Patito Joao Work Phone: Plan of Treatment Date Care Activity Detail Author Start: 01-14-2040 RSV Immunization for Adults (1 - 1-dose 75+ series) RSV Immunization for Adults (1 - 1-dose 75+ series) [facility] Start: 07-03-2029 Screening for malignant neoplasm of colon [facility] Start: 01-30-2026 Diabetes: Estimated Glomerular Filtration Rate for Kidney Health Diabetes: Estimated Glomerular Filtration Rate for Kidney Health [facility] Start: 01-30-2026 Diabetes: Urine Albumin-Creatinine Ratio for Kidney Health Diabetes: Urine Albumin-Creatinine Ratio for Kidney Health [facility] Start: 01-30-2026 Hemoglobin A1c measurement Diabetes: Hemoglobin A1C [facility] Start: 01-30-2026 Hepatitis B screening Urine Albumin:Creatinine Ratio [facility] Start: 01-30-2026 Hepatitis B surface antibody level LDL Cholesterol [facility] Start: 01-30-2026 Lipid panel Lipid Panel [facility] Start: 01-14-2026 Diabetes: Estimated Glomerular Filtration Rate for Kidney Health Diabetes: Estimated Glomerular Filtration Rate for Kidney Health [facility] Start: 01-09-2026 Glaucoma screening Diabetes: Retinopathy Screening [facility] Start: 10-30-2025 Diabetes: Estimated Glomerular Filtration Rate for Kidney Health Diabetes: Estimated Glomerular Filtration Rate for Kidney Health [facility] Start: 10-30-2025 Hemoglobin A1c measurement Diabetes: Hemoglobin A1C [facility] Start: 10-30-2025 Lipid panel Lipid Panel [facility] Start: 10-24-2025 Glaucoma screening Diabetes: Retinopathy Screening [facility] Start: 08-01-2025 Depression Monitoring Depression Monitoring [facility] Start: 07-24-2025 Diabetes: Estimated Glomerular Filtration Rate for Kidney Health Diabetes: Estimated Glomerular Filtration Rate for Kidney Health [facility] Start: 07-24-2025 Hemoglobin A1c measurement Diabetes: Hemoglobin A1C [facility] Start: 07-24-2025 Lipid panel Lipid Panel [facility] Start: 05-09-2025 End: 05-09-2025 Patient encounter procedure 05/09/2025 1:40 PM EDT [facility] [address] [place] [phone] Lena Varner MD [address] [place], [place] [id number] [facility] Start: 05-08-2025 Diabetes: Estimated Glomerular Filtration Rate for Kidney Health Diabetes: Estimated Glomerular Filtration Rate for Kidney Health [facility] Start: 05-08-2025 Hemoglobin A1c measurement Diabetes: Hemoglobin A1C [facility] Start: 05-08-2025 Lipid panel Lipid Panel [facility] Start: 05-02-2025 Hemoglobin A1c measurement HbA1C [facility] Start: 04-15-2025 Influenza vaccination Influenza Vaccine (#1) [facility] Start: 03-13-2025 BP Controlled (<130/80) BP Controlled (<130/80) [facility] Start: 02-24-2025 [facility] Start: 01-31-2025 End: 01-31-2026 Hemoglobin A1c measurement Hemoglobin A1c Lab Routine Type 2 diabetes mellitus without complication, without long-term current use of insulin (HCC) Expected: 01/31/2025 (Approximate), Expires: 01/31/2026 [facility] Work Phone: Comment on above: Expected: 01/31/2025 (Approximate), Expi res: 01/31/2026 Start: 01-30-2025 End: 01-30-2025 Patient encounter procedure 01/30/2025 3:00 PM EDT Office Visit [facility] [address] [place] [address] Lena Varner MD [address] [place], [place] [address] [facility] Start: 01-30-2025 End: 04-01-2026 DBT Breast - bilateral screening Bilateral screening mammogram with tomosynthesis Imaging Routine Severe obesity (BMI 35.0-39.9) with comorbidity (HCC) Type 2 diabetes mellitus without complication, without long-term current use of insulin (HCC) Major depressive disorder, recurrent severe without psychotic features (HCC) Essential hypertension, benign Screening mammogram, encounter for Expected: 01/30/2025, Expires: 04/01/2026 [facility] Work Phone: Comment on above: Expected: 01/30/2025, Expires: Start: 01-30-2025 End: 01-30-2026 Microalbumin/Creatinine panel in random Urine Microalbumin / creatinine, urine ratio Lab Routine Type 2 diabetes mellitus without complication, without long-term current use of insulin (HCC) Major depressive disorder, recurrent severe without psychotic features (HCC) Essential hypertension, benign Expected: 01/30/2025 (Approximate), Expires: 01/30/2026 [facility] Comment on above: Expected: 01/30/2025 (Approximate), Expi res: 01/30/2026 Start: 01-30-2025 End: 01-30-2026 XR Lumbar spine 2 or 3 Views XR lumbar spine 2 or 3 views Imaging Routine Lumbar back pain Expected: 01/30/2025, Expires: 01/30/2026 [facility] Comment on above: Expected: 01/30/2025, Expires: Start: 01-24-2025 Diabetes: Estimated Glomerular Filtration Rate for Kidney Health Diabetes: Estimated Glomerular Filtration Rate for Kidney Health [facility] Start: 01-24-2025 Diabetes: Urine Albumin-Creatinine Ratio for Kidney Health Diabetes: Urine Albumin-Creatinine Ratio for Kidney Health [facility] Start: 01-24-2025 Hemoglobin A1c measurement Diabetes: Hemoglobin A1C [facility] Start: 01-24-2025 Hepatitis B screening Urine Albumin:Creatinine Ratio [facility] Start: 01-24-2025 Hepatitis B surface antibody level LDL Cholesterol [facility] Start: 01-24-2025 Lipid panel Lipid Panel [facility] Start: 2025 RSV Immunization aged 60 or older (1 - 1-dose 60+ series) RSV Immunization aged 60 or older (1 - 1-dose 60+ series) [facility] Start: 2025 RSV Immunization for Adults (1 - Risk 60-74 years 1-dose series) RSV Immunization for Adults (1 - Risk 60-74 years 1-dose series) [facility] Start: 2025 RSV Vaccine (1 - Risk 60-74 years 1-dose series) RSV Vaccine (1 - Risk 60-74 years 1-dose series) [facility] Start: 12-17-2024 End: 12-17-2024 Patient encounter procedure 12/17/2024 7:40 AM EDT Appointment [facility] [address] [place] [phone] Lena Varner MD [address] [place], [place] [id number] [facility] Start: 12-06-2024 End: 12-06-2024 Patient encounter procedure 12/06/2024 2:15 PM EDT Appointment [facility] [address] [place] [phone] Lena Varner MD [address] [place], [place] [id number] [facility] [address] Start: 10-24-2024 Glaucoma screening Diabetes: Retinopathy Screening [facility] Start: 10-23-2024 End: 10-23-2024 Patient encounter procedure 10/23/2024 2:20 PM EDT Office Visit [facility] [place] [address] [place] [phone] Lena Varner MD [address] [place], [place] [id number] [facility] Start: 10-17-2024 Diabetes: Estimated Glomerular Filtration Rate for Kidney Health Diabetes: Estimated Glomerular Filtration Rate for Kidney Health [facility] Start: 10-17-2024 Hemoglobin A1c measurement Diabetes: Hemoglobin A1C [facility] Start: 10-17-2024 Lipid panel Lipid Panel [facility] Start: 09-08-2024 Glaucoma screening Diabetes: Retinopathy Screening [facility] Start: 09-05-2024 Subsequent hospital visit by physician 09/05/2024 2:30 PM EST Hospital Encounter [facility] [address] [place] [address] Lena Varner MD [address] [place], [place] [id number] [facility] [address] Start: 09-05-2024 End: 09-05-2025 CT Chest for screening WO contrast CT lung screening low dose Imaging Routine Screening for lung cancer Tobacco use disorder Personal history of nicotine dependence Expected: 09/05/2024, Expires: 09/05/2025 [facility] Work Phone: Comment on above: Expected: 09/05/2024, Expires: Start: 08-15-2024 Medicare Advantage Annual Wellness Visit Medicare Advantage Annual Wellness Visit [facility] Start: 07-24-2024 End: 07-24-2025 Comprehensive metabolic 1998 panel - Serum or Plasma Comprehensive metabolic panel Lab Routine Type 2 diabetes mellitus without complication, without long-term current use of insulin (CMS/HCC) (HCC) Expected: 07/24/2024 (Approximate), Expires: 07/24/2025 [facility] Comment on above: Expected: 07/24/2024 (Approximate), Expi res: 07/24/2025 Start: 07-24-2024 End: 07-24-2025 Hemoglobin A1c measurement Hemoglobin A1c Lab Routine Type 2 diabetes mellitus without complication, without long-term current use of insulin (CMS/HCC) (HCC) Expected: 07/24/2024 (Approximate), Expires: 07/24/2025 [facility] Work Phone: Comment on above: Expected: 07/24/2024 (Approximate), Expi res: 07/24/2025 Start: 07-24-2024 End: 07-24-2025 Lipid 1996 panel - Serum or Plasma Lipid panel Lab Routine Type 2 diabetes mellitus without complication, without long-term current use of insulin (CMS/HCC) (HCC) Expected: 07/24/2024 (Approximate), Expires: 07/24/2025 [facility] Comment on above: Expected: 07/24/2024 (Approximate), Expi res: 07/24/2025 Start: 07-24-2024 End: 07-24-2024 Patient encounter procedure 07/24/2024 11:20 AM EST Office Visit [facility] [address] [place] [phone] Lena Varner MD [address] [place] [address] [facility] Start: 07-22-2024 Glaucoma screening Diabetes: Retinopathy Screening [facility] Start: 06-22-2024 BP Controlled (<130/80) BP Controlled (<130/80) [facility] Start: 06-18-2024 Colonoscopy Colonoscopy [facility] Start: 06-18-2024 Colorectal Cancer Screening Colorectal Cancer Screening [facility] Start: 06-18-2024 Screening for malignant neoplasm of colon [facility] Start: 06-15-2024 Hemoglobin A1c measurement Diabetes: Hemoglobin A1C [facility] Start: 05-08-2024 End: 05-08-2025 CBC W Auto Differential panel - Blood CBC auto differential Lab Routine Hypercholesteremia Type 2 diabetes mellitus without complication, without long-term current use of insulin (CMS/HCC) (HCC) Major depressive disorder, recurrent severe without psychotic features (HCC) Expected: 05/08/2024 (Approximate), Expires: 05/08/2025 [facility] Comment on above: Expected: 05/08/2024 (Approximate), Expi res: 05/08/2025 Start: 05-08-2024 End: 05-08-2025 Comprehensive metabolic 1998 panel - Serum or Plasma Comprehensive metabolic panel Lab Routine Hypercholesteremia Type 2 diabetes mellitus without complication, without long-term current use of insulin (CMS/HCC) (HCC) Major depressive disorder, recurrent severe without psychotic features (HCC) Expected: 05/08/2024 (Approximate), Expires: 05/08/2025 [facility] Comment on above: Expected: 05/08/2024 (Approximate), Expi res: 05/08/2025 Start: 05-08-2024 End: 05-08-2025 CT Chest for screening WO contrast CT lung screening low dose Imaging Routine Current smoker Expected: 05/08/2024, Expires: 05/08/2025 [facility] Comment on above: Expected: 05/08/2024, Expires: Start: 05-08-2024 End: 05-08-2025 Hemoglobin A1c measurement Hemoglobin A1c Lab Routine Hypercholesteremia Type 2 diabetes mellitus without complication, without long-term current use of insulin (CMS/HCC) (HCC) Major depressive disorder, recurrent severe without psychotic features (HCC) Expected: 05/08/2024 (Approximate), Expires: 05/08/2025 [facility] Work Phone: Comment on above: Expected: 05/08/2024 (Approximate), Expi res: 05/08/2025 Start: 05-08-2024 End: 05-08-2025 Lipid 1996 panel - Serum or Plasma Lipid panel Lab Routine Hypercholesteremia Type 2 diabetes mellitus without complication, without long-term current use of insulin (CMS/HCC) (HCC) Major depressive disorder, recurrent severe without psychotic features (HCC) Expected: 05/08/2024 (Approximate), Expires: 05/08/2025 [facility] Comment on above: Expected: 05/08/2024 (Approximate), Expi res: 05/08/2025 Start: 05-08-2024 End: 05-08-2025 Magnesium [Mass/volume] in Serum or Plasma Magnesium Lab Routine Hypercholesteremia Type 2 diabetes mellitus without complication, without long-term current use of insulin (CMS/HCC) (HCC) Major depressive disorder, recurrent severe without psychotic features (HCC) Expected: 05/08/2024 (Approximate), Expires: 05/08/2025 [facility] Comment on above: Expected: 05/08/2024 (Approximate), Expi res: 05/08/2025 Start: 05-08-2024 End: 05-08-2024 Patient encounter procedure 05/08/2024 2:00 PM EDT Office Visit [facility] [address] [place] [address] [address] [place] [address] Lena Varner MD [address] [place] [address] [facility] Start: 04-26-2024 Hemoglobin A1c measurement HbA1C [facility] Start: 04-15-2024 COVID-19 Vaccine ( season) COVID-19 Vaccine () [facility] Start: 04-15-2024 COVID-19 Vaccine () COVID-19 Vaccine () [facility] Start: 04-15-2024 Influenza vaccination Influenza Vaccine (#1) [facility] Start: 04-12-2024 Diabetes: Urine Albumin-Creatinine Ratio for Kidney Health Diabetes: Urine Albumin-Creatinine Ratio for Kidney Health [facility] Start: 04-12-2024 Hepatitis B surface antibody level LDL Cholesterol [facility] Start: 04-12-2024 Lipid panel Lipid Panel [facility] Start: 04-12-2024 Thyroid stimulating hormone measurement TSH Level [facility] Start: 04-08-2024 Screening for malignant neoplasm of colon Fecal-DNA (Cologuard): Average risk [facility] Start: 03-24-2024 Hemoglobin A1c measurement Diabetes: Hemoglobin A1C [facility] Start: 01-25-2024 End: 01-24-2025 CBC W Auto Differential panel - Blood CBC auto differential Lab Routine Type 2 diabetes mellitus without complication, without long-term current use of insulin (CMS/HCC) (HCC) Hypercholesteremia Expected: 01/25/2024 (Approximate), Expires: 01/24/2025 [facility] Comment on above: Expected: 01/25/2024 (Approximate), Expi res: 01/24/2025 Start: 01-25-2024 End: 01-24-2025 Comprehensive metabolic 1998 panel - Serum or Plasma Comprehensive metabolic panel Lab Routine Type 2 diabetes mellitus without complication, without long-term current use of insulin (CMS/HCC) (HCC) Hypercholesteremia Expected: 01/25/2024 (Approximate), Expires: 01/24/2025 [facility] Comment on above: Expected: 01/25/2024 (Approximate), Expi res: 01/24/2025 Start: 01-25-2024 End: 01-24-2025 Hemoglobin A1c measurement Hemoglobin A1c Lab Routine Type 2 diabetes mellitus without complication, without long-term current use of insulin (CMS/HCC) (HCC) Hypercholesteremia Expected: 01/25/2024 (Approximate), Expires: 01/24/2025 [facility] Work Phone: Comment on above: Expected: 01/25/2024 (Approximate), Expi res: 01/24/2025 Start: 01-25-2024 End: 01-24-2025 Lipid 1996 panel - Serum or Plasma Lipid panel Lab Routine Type 2 diabetes mellitus without complication, without long-term current use of insulin (CMS/HCC) (HCC) Hypercholesteremia Expected: 01/25/2024 (Approximate), Expires: 01/24/2025 [facility] Comment on above: Expected: 01/25/2024 (Approximate), Expi res: 01/24/2025 Start: 01-25-2024 End: 01-24-2025 Microalbumin/Creatinine panel in random Urine Microalbumin / creatinine, urine ratio Lab Routine Type 2 diabetes mellitus without complication, without long-term current use of insulin (CMS/HCC) (HCC) Hypercholesteremia Expected: 01/25/2024 (Approximate), Expires: 01/24/2025 [facility] Comment on above: Expected: 01/25/2024 (Approximate), Expi res: 01/24/2025 Start: 01-25-2024 End: 01-25-2024 Patient encounter procedure 01/25/2024 1:40 PM EDT Office Visit [facility] [address] [place] [address] Lena Varner MD [address] [place] [address] [place] [id number] [facility] Start: 10-18-2023 End: 10-18-2023 Patient encounter procedure 10/18/2023 2:00 PM EST Office Visit [facility] [address] [place] [address] Lena Varner MD [address] [place] [address] [facility] Start: 09-15-2023 Hemoglobin A1c/Hemoglobin.total in Blood HbA1C [facility] Start: 07-12-2023 End: 07-12-2023 Patient encounter procedure 07/12/2023 1:00 PM EST Office Visit [facility] [address] [place] [address] Hari Casanova PA-C [address] [place] [address] [facility] Start: 06-22-2023 End: 06-22-2023 Patient encounter procedure [facility] Start: 05-06-2023 Urine screening for protein Diabetes: Urine Protein Screening [facility] Start: 05-04-2023 Lipid panel Lipid Panel [facility] Start: 05-04-2023 Thyroid stimulating hormone measurement TSH Level [facility] Start: 04-15-2023 COVID-19 Vaccine ( season) COVID-19 Vaccine ( season) [facility] Start: 04-15-2023 Influenza vaccination Influenza Vaccine (#1) [facility] Start: 03-24-2023 End: 03-24-2024 CBC panel - Blood by Automated count CBC Lab Routine Type 2 diabetes mellitus without complication, without long-term current use of insulin ([facility]) ([facility]) Expected: 03/24/2023 (Approximate), Expires: 03/24/2024 [facility] Comment on above: Expected: 03/24/2023 (Approximate), Expi res: 03/24/2024 Start: 03-24-2023 End: 03-24-2024 Clostridioides difficile toxin genes [Presence] in Stool by CHRIS with probe detection C. DIFFICILE by PCR with Reflex to EIA Microbiology Routine Diarrhea, unspecified type Expected: 03/24/2023 (Approximate), Expires: 03/24/2024 [facility] Comment on above: Expected: 03/24/2023 (Approximate), Expi res: 03/24/2024 Start: 03-24-2023 End: 03-24-2024 Comprehensive metabolic 1998 panel - Serum or Plasma Comprehensive metabolic panel Lab Routine Type 2 diabetes mellitus without complication, without long-term current use of insulin (CMS/HCC) (HCC) Expected: 03/24/2023 (Approximate), Expires: 03/24/2024 [facility] Comment on above: Expected: 03/24/2023 (Approximate), Expi res: 03/24/2024 Start: 03-24-2023 End: 03-24-2024 Lipid 1996 panel - Serum or Plasma Lipid panel Lab Routine Type 2 diabetes mellitus without complication, without long-term current use of insulin (CMS/HCC) (HCC) Expected: 03/24/2023 (Approximate), Expires: 03/24/2024 [facility] Comment on above: Expected: 03/24/2023 (Approximate), Expi res: 03/24/2024 Start: 03-24-2023 End: 03-24-2024 Microalbumin/Creatinine panel in random Urine Microalbumin / creatinine, urine ratio Lab Routine Type 2 diabetes mellitus without complication, without long-term current use of insulin (CMS/HCC) (HCC) Expected: 03/24/2023 (Approximate), Expires: 03/24/2024 [facility] Comment on above: Expected: 03/24/2023 (Approximate), Expi res: 03/24/2024 Start: 03-24-2023 End: 03-24-2024 Thyrotropin [Units/volume] in Serum or Plasma TSH Lab Routine Type 2 diabetes mellitus without complication, without long-term current use of insulin (CMS/HCC) (HCC) Expected: 03/24/2023 (Approximate), Expires: 03/24/2024 [facility] Comment on above: Expected: 03/24/2023 (Approximate), Expi res: 03/24/2024 Start: 03-24-2023 End: 03-24-2024 XR Chest 2 Views XR chest 2 views Imaging Routine Pneumonia due to infectious organism, unspecified laterality, unspecified part of lung Expected: 03/24/2023, Expires: 03/24/2024 [facility] Work Phone: Comment on above: Expected: 03/24/2023, Expires: Start: 03-24-2023 End: 03-24-2023 Patient encounter procedure 03/24/2023 Office Visit Internal Medicine Anjana Salinas MD 1 [facility] [place], [facility]. [address] [place] [id number] [facility] Start: 02-15-2023 Hemoglobin A1c measurement Diabetes: Hemoglobin A1C [facility] Start: 02-03-2023 Depression Monitoring Depression Monitoring [facility] Start: 12-04-2022 DTaP/Tdap/Td vaccine (2 - Td or Tdap) DTaP/Tdap/Td vaccine (2 - Td or Tdap) [facility] Start: 12-04-2022 DTaP/Tdap/Td vaccine (2 - Td) DTaP/Tdap/Td vaccine (2 - Td) [place], [place] Start: 12-04-2022 DTaP/Tdap/Td Vaccines (2 - Td or Tdap) DTaP/Tdap/Td Vaccines (2 - Td or Tdap) [facility] Start: 12-04-2022 Urine microalbumin profile DTaP,Tdap,Td Vaccine (2 - Td or Tdap) [facility] Start: 12-03-[address] [facility] Start: 12-03-2022 Potassium [Moles/volume] in Serum or Plasma Potassium [facility] Start: 11-16-2022 Hemoglobin A1c measurement Diabetes: Hemoglobin A1C [facility] Start: 11-16-2022 End: 11-16-2022 Patient encounter procedure 11/16/2022 Office Visit Internal Medicine Anjana Salinas MD 1 [facility] [place], [facility]. [address] [place] [address] [facility] Start: 08-18-2022 Creatinine measurement Creatinine monitoring [facility] Start: 08-18-2022 Potassium monitoring Potassium monitoring [facility] Start: 07-23-2022 Diabetic retinal exam Diabetic retinal exam [facility] Start: 07-03-2022 Colon cancer screen colonoscopy Colon cancer screen colonoscopy [place], [place] Start: 07-03-2022 Screening for malignant neoplasm of colon [facility] Start: 06-23-2022 Screening for malignant neoplasm of lung Lung Cancer Screening [facility] Start: 06-19-2022 Creatinine measurement Creatinine monitoring [facility] Start: 05-06-2022 Hemoglobin A1c measurement A1C test (Diabetic or Prediabetic) [facility] Start: 05-06-2022 End: 05-06-2022 Patient encounter procedure 05/06/2022 Office Visit Internal Medicine Anjana aSlinas MD 1 [facility] [place], [facility]. [address] [place] [address] [facility] Start: 04-16-2022 Diabetic foot examination Diabetic foot exam [facility] Start: 04-16-2022 Hemoglobin A1c measurement A1C test (Diabetic or Prediabetic) [facility] Start: 04-15-2022 Influenza vaccination [facility] Start: 04-08-2022 Screening for malignant neoplasm of colon FIT/FOBT: Average risk [facility] Start: 03-13-2022 Screening for malignant neoplasm of colon [facility] Start: 03-09-2022 3 comp foot exam completed DIABETIC FOOT EXAM [facility] Start: 03-09-2022 BP CONTROLLED (<130/80) BP CONTROLLED (<130/80) [facility] Start: 03-09-2022 Diabetic foot examination Diabetic Foot Exam [facility] Start: 03-03-2022 Creatinine measurement Creatinine monitoring [facility] Work Phone: Start: 03-03-2022 Hepatitis B surface antibody level LDL CHOLESTEROL [facility] Start: 03-03-2022 Potassium monitoring Potassium monitoring [facility] Start: 02-18-2022 Screening for malignant neoplasm of breast Breast cancer screen [facility] Start: 02-03-2022 End: 02-03-2022 Patient encounter procedure 02/03/2022 Office Visit Internal Medicine Anjana Salinas MD 1 [facility] [place], [facility]. [address] [place] [address] [facility] Start: 02-02-2022 Hemoglobin A1c measurement A1C test (Diabetic or Prediabetic) [facility] Start: 01-19-2022 Creatinine measurement Creatinine monitoring [facility] Work Phone: Start: 01-19-2022 Depression Monitoring Depression Monitoring [facility] Start: 01-19-2022 Hemoglobin A1c measurement A1C test (Diabetic or Prediabetic) [facility] Work Phone: Start: 01-19-2022 Hepatitis B vaccine (1 of 3 - Risk 3-dose series) Hepatitis B vaccine (1 of 3 - Risk 3-dose series) [facility] Comment on above: Postponed from 01/14/1984 (Patient Refus ed) Start: 01-19-2022 Lipid panel [facility] Start: 01-19-2022 Pneumococcal 0-64 years Vaccine (1 - PCV) Pneumococcal 0-64 years Vaccine (1 - PCV) [facility] Comment on above: Postponed from 1971 (Patient Refus ed) Start: 01-19-2022 Pneumococcal 0-64 years Vaccine (1 of 2 - PPSV23) Pneumococcal 0-64 years Vaccine (1 of 2 - PPSV23) [facility] Comment on above: Postponed from 1971 (Patient Refus ed) Start: 01-19-2022 Potassium monitoring Potassium monitoring [facility] Work Phone: Start: 01-19-2022 Shingles Vaccine (1 of 2) Shingles Vaccine (1 of 2) [facility] Comment on above: Postponed from 2015 (Patient Refus ed) Start: 11-05-2021 Glaucoma screening Dilated Retinal Exam [facility] Start: 11-05-2021 Hepatitis C antibody, confirmatory test DILATED RETINAL EXAM [facility] Start: 10-16-2021 Diabetic microalbuminuria test Diabetic microalbuminuria test [facility] Start: 10-16-2021 Urine screening for protein Diabetic microalbuminuria test [facility] Start: 09-01-2021 End: 09-01-2021 Evaluation and management of inpatient 09/01/2021 Office Visit Cardiothoracic Surgery Briseida Bar, JOE - 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 [address] [place] [id number] [facility] Start: 08-18-2021 End: 08-18-2021 Patient encounter procedure 08/18/2021 Office Visit Internal Medicine Anjana Salinas MD 1 [facility] [place], [facility]. [address] [place] [id number] [facility] Start: 06-11-2021 HbA1c (Bld) [Mass fraction] A1C test (Diabetic or Prediabetic) [place], [place] Start: 06-03-2021 Hemoglobin A1c/Hemoglobin.total in Blood HBA1C [facility] Start: 04-21-2021 COVID-19 Vaccine (1) COVID-19 Vaccine (1) [facility] Work Phone: Comment on above: Postponed from 1977 (Patient Refus ed) Start: 04-16-2021 End: 04-16-2021 Patient encounter procedure 04/16/2021 Office Visit Internal Medicine Anjana Salinas MD 1 [facility] [place]. [address] [place] [id number] [facility] Start: 04-15-2021 Influenza vaccination Flu vaccine (#1) [facility] Start: 04-14-2021 ELISEO, Provider: Janae Coates, Status: Pen, Time: 2:40 PM ELISEO, Provider: Janae Coates, Status: Pen, Time: 2:40 PM [facility] Work Phone: Start: 02-26-2021 Creatinine measurement Creatinine monitoring [facility], [place] Start: 02-26-2021 Diabetic foot examination Diabetic foot exam [place], [place] Start: 02-26-2021 Lipid panel Lipid screen [place] Start: 02-26-2021 Potassium monitoring Potassium monitoring [place] Start: 02-18-2021 Screening for malignant neoplasm of breast [facility] Start: 12-12-2020 Diabetic retinal exam Diabetic retinal exam [facility] Start: 09-15-2020 End: 09-15-2020 Office Visit 09/15/2020 Office Visit Internal Medicine Anjana Salinas MD 1 [facility] [place], [facility]. [address] [place] [address] [phone] [facility] Start: 08-29-2020 [object Object] Diabetic foot exam [place] Start: 08-29-2020 Diabetic foot examination Diabetic foot exam [place] Start: 04-15-2020 Influenza vaccination [place] Start: 02-27-2020 End: 02-27-2020 Office Visit 02/27/2020 Office Visit Internal Medicine Anjana Salinas MD 1 [facility] [place], [facility]. [address] [place] [address] [phone] [facility] Start: 02-06-2020 Creatinine measurement Creatinine monitoring [place], [place] Start: 02-06-2020 Creatinine monitoring Creatinine monitoring [place], [place] Start: 02-06-2020 Diabetic microalbuminuria test Diabetic microalbuminuria test [place], [place] Start: 02-06-2020 Hepatitis B screening URINE ALBUMIN:CREATININE RATIO [facility] Start: 02-06-2020 Lipid panel Lipid [place], [place] Start: 02-06-2020 Lipid screen Lipid [place] Start: 02-06-2020 Potassium monitoring Potassium monitoring [place] Start: 01-26-2020 A1C test (Diabetic or Prediabetic) A1C test (Diabetic or Prediabetic) [place] Start: 11-29-2019 End: 11-29-2019 Office Visit 11/29/2019 Office Visit Internal Medicine Anjana Salinas MD 1 [facility] [place], [facility]. [address] [place] [address] [phone] [facility] Start: 11-28-2019 A1C test (Diabetic or Prediabetic) A1C test (Diabetic or Prediabetic) [place] Start: 11-28-2019 HbA1c (Bld) [Mass fraction] A1C test (Diabetic or Prediabetic) [facility] Start: 05-03-2019 [object Object] Diabetic foot exam [facility] Start: 05-02-2019 End: 05-02-2019 Office Visit 05/02/2019 Office Visit Internal Medicine Anjana Salinas MD 1 [facility] [place], [facility]. [address] [place] [address] [phone] [facility] Start: 04-15-2019 Influenza vaccination Flu vaccine (#1) [place] Start: 02-12-2015 Medicare Annual Wellness Visit Medicare Annual Wellness Visit [facility] Start: 2015 Breast cancer screen Breast cancer screen [facility] Start: 2015 Colon cancer screen colonoscopy Colon cancer screen colonoscopy [place], [place] Start: 2015 Screening for malignant neoplasm of breast Breast cancer screen [place] Start: 2015 Shingles Vaccine (1 of 2) Shingles Vaccine (1 of 2) [facility] Start: 2015 SHINGRIX VACCINE (1 of 2) SHINGRIX VACCINE (1 of 2) [facility] Start: 2015 Zoster Vaccines (1 of 2) Zoster Vaccines (1 of 2) [facility] Start: 2010 COLOGUARD (FIT-DNA) COLOGUARD (FIT-DNA) [facility] Start: 2010 Colonoscopy COLONOSCOPY [facility] Start: 2010 COLORECTAL CANCER SCREENING COLORECTAL CANCER SCREENING [facility] Start: [address] COLONOGRAPHY [facility] Start: 2010 FECAL OCCULT BLOOD FECAL OCCULT BLOOD [facility] Start: 2010 Screening for malignant neoplasm of colon [facility] Start: 2010 SIGMOIDOSCOPY SIGMOIDOSCOPY [facility] Start: 2005 Mammography [facility] Start: 2005 Screening for malignant neoplasm of breast Mammogram Screening [facility] Start: 1995 HPV TESTING HPV TESTING [facility] Start: 1986 PAP TESTING PAP TESTING [facility] Start: 1986 Screening for malignant neoplasm of cervix Cervical Cancer Screening [facility] Start: 01-14-1984 Hepatitis A Vaccines (1 of 2 - Risk 2-dose series) Hepatitis A Vaccines (1 of 2 - Risk 2-dose series) [facility] Start: 01-14-1984 Hepatitis B Vaccine (1 of 3 - Risk 3-dose series) Hepatitis B Vaccine (1 of 3 - Risk 3-dose series) [facility] Start: 01-14-1984 Hepatitis B Vaccines (1 of 3 - 19+ 3-dose series) Hepatitis B Vaccines (1 of 3 - 19+ 3-dose series) [facility] Start: 01-14-1984 Pneumococcal Vaccine: 50+ (1 of 2 - PCV) Pneumococcal Vaccine: 50+ (1 of 2 - PCV) [facility] Start: 01-14-1984 Pneumococcal Vaccine: 50+ Years (1 of 2 - PCV) Pneumococcal Vaccine: 50+ Years (1 of 2 - PCV) [facility] Start: 01-14-1984 Urine microalbumin profile DTAP,TDAP,TD (1 - Tdap) [facility] Start: 1983 ANNUAL PCP TEAM CHRONIC DISEASE VISIT ANNUAL PCP TEAM CHRONIC DISEASE VISIT [facility] Start: 1983 Anxiety Screening Anxiety Screening [facility] Start: 1983 Hepatitis C screening Hepatitis C Screening [facility] Start: 1983 HIV SCREENING HIV SCREENING [facility] Start: 1983 HIV screening HIV Screening [facility] Start: 1981 ONE PNEUMOVAX PRIOR TO AGE 65 ONE PNEUMOVAX PRIOR TO AGE 65 [facility] Start: 01-14-1980 HIV screen HIV screen [place] Start: 01-14-1980 HIV screening HIV screen [place] Start: 1977 COVID-19 Vaccine (1) COVID-19 Vaccine (1) [facility] Start: 1977 Depression Monitoring Depression Monitoring [facility] Start: 1977 Depresssion Monitoring Depresssion Monitoring [facility] Start: 1975 Diabetic foot examination Diabetes: Foot Exam [facility] Start: 1975 Diabetic retinal exam Diabetic retinal exam [place], [place] Start: 1975 Preventive dental service Diabetes: Dental Exam [facility] Start: 1971 Pneumococcal 0-64 years Vaccine (1 - PCV) Pneumococcal 0-64 years Vaccine (1 - PCV) [facility] Start: 1971 Pneumococcal 0-64 years Vaccine (1 of 1 - PPSV23) Pneumococcal 0-64 years Vaccine (1 of 1 - PPSV23) [facility], [place] Start: 1971 Pneumococcal vaccination [facility] Start: 1971 Pneumococcal Vaccine: Pediatrics (0 to 5 Years) and At-Risk Patients (6 to 64 Years) (1 - PCV) Pneumococcal Vaccine: Pediatrics (0 to 5 Years) and At-Risk Patients (6 to 64 Years) (1 - PCV) [facility] Start: 1971 Pneumococcal Vaccine: Pediatrics (0 to 5 Years) and At-Risk Patients (6 to 64 Years) (1 of 2 - PCV) Pneumococcal Vaccine: Pediatrics (0 to 5 Years) and At-Risk Patients (6 to 64 Years) (1 of 2 - PCV) [facility] Start: 1970 COVID-19 Vaccine (1) COVID-19 Vaccine (1) [facility] Start: 1966 Hepatitis A Vaccines (1 of 2 - Risk 2-dose series) Hepatitis A Vaccines (1 of 2 - Risk 2-dose series) [facility] Start: 1966 MMR Vaccines (1 of 1 - Standard series) MMR Vaccines (1 of 1 - Standard series) [facility] Start: 1965 COVID-19 Vaccine (#1) COVID-19 Vaccine (#1) [facility] Start: 1965 Hepatitis B Vaccine (1 of 3 - 3-dose series) Hepatitis B Vaccine (1 of 3 - 3-dose series) [facility] Start: 1965 Hepatitis B Vaccines (1 of 3 - 3-dose series) Hepatitis B Vaccines (1 of 3 - 3-dose series) [facility] Start: 1965 HIV screening HIV Screening [facility] Start: 1965 Screening for malignant neoplasm of colon [facility] Bacteria identified in Urine by Culture URINE CULTURE Microbiology Routine UTI symptoms 06/22/2023 3:05 PM EST [facility] Work Phone: Bacteria identified in Urine by Culture URINE CULTURE Microbiology Routine Leukocytes in urine Urinary urgency Sensation of pressure in bladder area Dysuria Ordered: 03/13/2024 [facility] Work Phone: Comment on above: Ordered: 03/13/2024 C-reactive protein C-REACTIVE AZ OTEIN Lab Routine Daily until discontinued starting 08/14/2021, 5 completed [facility] Work Phone: Comment on above: Daily until discontinued starting 2020, 5 completed CBC W Auto Different ial panel - Blood CBC Auto Differential Lab Routine Daily until discontinued starting 08/14/2021, 4 completed [facility] Work Phone: Comment on above: Daily until discontinued starting 2020, 4 completed Comprehensive Metabo lic Panel w/ Reflex to MG Comprehensive Metabolic Panel w/ Reflex to MG Lab Routine Daily until discontinued starting 08/14/2021, 5 completed [facility] Work Phone: Comment on above: Daily until discontinued starting 2020, 5 completed End: 06-23-2021 CT CHEST W CONTRAST [facility] Work Phone: Comment on above: Once for 1 Occurrences starting 06/23/20 21 until 06/23/2021 End: 08-14-2021 Culture, Respiratory Culture, Respiratory Microbiology Routine One Time for 1 Occurrences starting 08/14/2021 until 08/14/2021 [facility] Work Phone: Comment on above: One Time for 1 Occurrences starting 07/17 until 08/14/2021 End: 12-22-2019 Culture, Urine Culture, Urine Microbiology STAT One Time for 1 Occurrences starting 12/22/2019 until 12/22/2019 [facility] [place] Comment on above: One Time for 1 Occurrences starting 04/2020 until 12/22/2019 Culture, Urine [facility] [place], [place] End: 08-05-2020 Culture, Urine Culture, Urine Microbiology Routine One Time for 1 Occurrences starting 08/05/2020 until 08/05/2020 [facility] [place], [place] Comment on above: One Time for 1 Occurrences starting 07/16 until 08/05/2020 End: 02-22-2021 Culture, Urine [facility] Work Phone: Comment on above: One Time for 1 Occurrences starting 02/12 until 02/22/2021 Once for 1 Occurrenc es starting 02/22/2021 until 02/22/2021 End: 04-14-2022 Culture, Urine [facility] Work Phone: Comment on above: Once for 1 Occurrences starting 04/14/20 22 until 04/14/2022 D-Dimer, Quantitative D-Dimer, Q uantitative Lab Routine Daily until discontinued starting 08/14/2021, 4 completed [facility] Work Phone: Comment on above: Daily until discontinued starting 2020, 4 completed ECG 12 lead ECG 12 lead CV E CG STAT 07/24/2023 2:34 PM EST [facility] Work Phone: EKG 12 Lead - Chest Pain EKG 12 Lead - Chest Pain ECG STAT 03/03/2021 9:09 PM EDT [facility] Work Phone: Glucose [Mass/volume ] in Serum or Plasma [facility] Work Phone: Comment on above: 4X Daily (AC & HS) until discontinued st arting 08/11/2021 As Needed until disc ontinued starting 08/11/2021 End: 08-18-2021 Glucose [Mass/volume] in Serum or Plasma Glucose Lab STAT One Time for 1 Occurrences starting 08/18/2021 until 08/18/2021 [facility] Work Phone: Comment on above: One Time for 1 Occurrences starting 11/2021 until 08/18/2021 End: 04-10-2019 Group A Strep Screen By PCR Group A Strep Screen By PCR Microbiology STAT Once for 1 Occurrences starting 04/10/2019 until 04/10/2019 [place], [place] Comment on above: Once for 1 Occurrences starting 04/10/20 19 until 04/10/2019 Group A Strep Screen By PCR Group A Strep Screen By PCR Microbiology STAT 04/10/2019 12:34 PM EDT [place], [place] Herpes simplex virus+Varicella zoster virus DNA [Presence] in Unspecified specimen by CHRIS with probe detection HERPES SIMPLEX VIRUS (HSV-1 & HSV-2) AND VARICELLA ZOSTER VIRUS (VZV), NAAT, LESION SWAB Lab Routine Rash Ordered: 02/21/2025 [facility] Work Phone: Comment on above: Ordered: 02/21/2025 End: 08-14-2021 Microscopic observation [Identifier] in Unspecified specimen by Gram stain GRAM STAIN Microbiology Routine One Time for 1 Occurrences starting 08/14/2021 until 08/14/2021 [facility] Work Phone: Comment on above: One Time for 1 Occurrences starting 07/17 until 08/14/2021 Oxygen therapy [[facility] Data Set] Initiate Oxygen Therapy Protocol Respiratory Care Routine Daily until discontinued starting 08/11/2021 [facility] Work Phone: Comment on above: Daily until discontinued starting 2020 Patient Education ED Shingles (H erpes Zoster) [facility] Work Phone: End: 02-19-2020 Screening digital breast tomosynthesis bi [employer] Digital Screen Bilateral Imaging Routine Once for 1 Occurrences starting 02/19/2020 until 02/19/2020 [place], [place] Comment on above: Once for 1 Occurrences starting 02/19/20 20 until 02/19/2020 Screening digital br east tomosynthesis bi [employer] Digital Screen Bilateral Imaging Routine 02/19/2020 1:11 PM EDT [place], [place] End: 08-11-2021 Surgical Pathology [facility] Work Phone: Comment on above: Once for 1 Occurrences starting 08/11/20 21 until 08/11/2021 Immunizations Immunization Date Immunization Notes Care Provider [facility] 05-08-2024 influenza, seasonal, injectable, preservative free Lena Varner MD Work Phone: [facility] 05-08-2024 influenza virus vaccine, unspecified formulation Ashley Amor APRN.CNP Work Phone: [facility] 07-12-2023 Influenza, Seasonal, Quadrivalent, Adjuvanted Hari Casanova PA-C Work Phone: [facility] 07-12-2023 influenza virus vaccine, unspecified formulation Lena Varner MD Work Phone: [facility] 08-18-2022 influenza, seasonal, injectable, preservative free Anjana Salinas MD Work Phone: [facility] 08-18-2022 influenza virus vaccine, unspecified formulation Anjana Salinas MD Work Phone: [facility] 06-11-2020 influenza, injectable, quadrivalent, contains preservative [facility] [place] 09-[facility]-2018 Influenza, High-dose Seasonal, Quadrivalent, Preservative Free Hari Casanova PA-C Work Phone: [facility] 09-22-2018 influenza, injectable, quadrivalent, preservative free [facility] [place] 09-09-2016 influenza, injectable, quadrivalent, contains preservative Patito [employer] [facility], [place] 09-09-2016 influenza, injectable, quadrivalent, preservative free [facility], [place] 12-04-2012 tetanus toxoid, reduced diphtheria toxoid, and acellular pertussis vaccine, adsorbed [employer] [facility] 04-29-2000 TD(adult) unspecifie d formulation [facility] [place] NEGATED: Highlighted row has not occurred!09-20-2018 influenza, injectable, quadrivalent, preservative free Sae Shultz MD Work Phone: [facility] Comment on above: Deferred: - do not g ritika because of acute illness per Ac [facility] Payers Date Payer Category Payer Medicaid [id number] 2025 Self-pay 2024 Medicare HMO [employer] HERNANDES E MEDICARE [id number] 2024 Medicare [id number] 2021 Commercial Managed C are - HMO MMO SUPERMED [id number] 2021 Private Health Insurance MMO SUP ERMED PPO [id number] 2021 Unknown 2021 Unknown MMO MMO SUPERMED PLUS [id number] 2021-Present [phone] [address] [place] [address] PPO [id number] 2020 Unknown [id number] 2018 Medicare MEDICARE MEDICAR E PART A AND B xxxxxxxxxxx 2018-Present [phone] [place] [address] xxxxxxxxxxx [id number] 2018 Unknown [id number] 2015 Medicare MEDICARE MEDICAR E A AND B [id number] 2015-Present [phone] [place] [address] Medicare [id number] 2015 Medicare 2015 Medicare [id number] 1965 Unknown [id number] 1965 Unknown [id number] 1965 Unknown [id number] 1965 Unknown [id number] 1965 Unknown [id number] Unknown [id number] Social History Date Type Detail Facility Start: 04-10-2019 End: 05-08-2024 Tobacco smoking status NHIS Current every day smoker [place], [place] History of tobacco use Cigarette Smoker [place], [place] Start: 04-10-2019 End: 01-30-2025 Cigarettes smoked current (pack per day) - Reported [facility] Start: 04-10-2019 End: 01-30-2025 Alcohol intake No [facility] Start: 1965 Sex Assigned At Not on file [facility] Start: 08-29-2019 End: 11-27-2019 Tobacco smoking status NHIS Former smoker [facility] Start: 08-29-2019 End: 01-05-2025 Alcohol intake Current [facility]-drinker of [facility] (finding[facility] Start: 04-19-2019 Tobacco Comment about one week [facility] cigarettes [facility] Exposure to SARS-CoV -2 (event) Unable to assess [facility] Start: 08-05-2020 End: 05-08-2024 Tobacco use and exposure Never used [facility] Start: 11-23-2021 End: 04-12-2023 Exposure to SARS-CoV-2 (event) Not sure [facility] Start: 01-19-2021 History SDOH Financial 5 [facility] Work Phone: Start: 01-19-2021 History SDOH Food Worry 1 [facility] Work Phone: Start: 01-19-2021 End: 02-03-2022 History SDOH Transport Med 2 [facility] Work Phone: Start: 08-06-2021 History SDOH Alcohol Comment none [facility] Work Phone: Start: 10-24-2014 End: 01-27-2025 Tobacco smoking status NHIS Heavy tobacco smoker [facility] Start: 02-03-2022 [facility] Start: 1965 Sex Assigned At Female S [facility] Start: 08-12-2022 Gender identity Identifies as female gender (finding) [facility] Start: 08-12-2022 Sexual orientation Heterosexual (fin ruth) [facility] How hard is it for y ou to pay for the very basics like food, housing, medical care, and heating Not hard at all [facility] (I/We) worried wheth er (my/our) food would run out before (I/we) got money to buy more. Never true [facility] In the past 12 month s, was there a time when you were not able to pay the mortgage or rent on time? No [facility] How often to you hav e a drink containing alcohol? Never [employer] Start: 03-15-2022 Sex Female (finding) [facility] [facility] Procedure Code Equipment Code Equipment Origin al Text Equipment Identifier Dates 1 each by Does n ot apply route daily [id number] Start: 08-18-2021 1 each by Does n ot apply route daily [id number] Start: 08-18-2021 End: 08-18-2021 Use as instructed [id number] Start: 10-30-2024 End: 10-30-2025 by Other route daily. [id number] Start: 10-30-2024 End: 11-29-2024 Goals Date Patient Goal Desired Activity /State Comment on above: Self- Management Goa ls: Below is a list of objectives your doctor would like you to consider working on help improve your overall health. Which objectives would you like to work on: Objective: overall health Barriers to success: none Plan for overcoming my barriers: n/a Confidence: moderate in terms of implementation Date goal set: today Patient given educational materials below via AVS. Patient received counseling about current lifestyle goal. Patient was informed that they should never smoke. If they are smoker, the need to work on quitting. Advised Alcohol only in moderation. Advised approximately 150 minutes of cardio, i.e treadmill, exercise in a week. Advised strive for 5 a total 5 servings of fruits and vegetables in a day. Advised a diet lower in carbohydrates and simple sugars. They need to watch consumption of bread, rice, pasta, potatoes, corn, soda, sweetened tea, lemonade, and all other sugar drinks. Patient given after visit summary which includes this educational information Discussed use, benefit, and side effects of prescribed medications and barriers to medication compliance addressed, if applicable. All patient questions answered. Patient was given a copy of this, and was advised to call if any questions. Formatting of this n ote might be different from the original. Self- Management Goals: Below is a list of objectives your doctor would like you to consider working on help improve your overall health. Which objectives would you like to work on: Objective: overall health Barriers to success: none Plan for overcoming my barriers: n/a Confidence: moderate in terms of implementation Date goal set: today Patient given educational materials below via AVS. Patient received counseling about current lifestyle goal. Patient was informed that they should never smoke. If they are smoker, the need to work on quitting. Advised Alcohol only in moderation. Advised approximately 150 minutes of cardio, i.e treadmill, exercise in a week. Advised strive for 5 a total 5 servings of fruits and vegetables in a day. Advised a diet lower in carbohydrates and simple sugars. They need to watch consumption of bread, rice, pasta, potatoes, corn, soda, sweetened tea, lemonade, and all other sugar drinks. Patient given after visit summary which includes this educational information Discussed use, benefit, and side effects of prescribed medications and barriers to medication compliance addressed, if applicable. All patient questions answered. Patient was given a copy of this, and was advised to call if any questions. Comment on above: Formatting of this n ote might be different from the original. I would like to improive my a1c Barriers: lack of motivation Plan for overcoming my barriers: I will keep my evening snack to 1 portion at a time. Confidence: 03/24 Anticipated Goal Completion Date: 08/05 Patient contributes to goal setting and verbalizes understanding. Patient has access to copy of goals through [employer]. Functional Status Date Assessment Result Facility 01-30-2025 Patient Health Quest ionnaire 2 item (PHQ-2) [Reported] [facility] 01-05-2025 Total score [AUDIT-C] 0 01/06/20 25 1:54 PM Gabi Neely RN [facility] 07-31-2023 Are you deaf, or do you have serious difficulty hearing No 07/31/2023 12:51 PM Gene Javier RN No [facility] 07-31-2023 Are you blind, or do you have serious difficulty seeing, even when wearing glasses No 07/31/2023 12:51 PM Gene Javier RN No [facility] 07-31-2023 Do you have serious difficulty walking or climbing stairs No 07/31/2023 12:51 PM Gene Javier RN No [facility] 07-31-2023 Do you have difficul ty dressing or bathing No 07/31/2023 12:51 PM Gene Javier RN No [facility] 07-31-2023 Because of a physica l, mental, or emotional condition, do you have difficulty doing errands alone such as visiting a physician's office or shopping No 07/31/2023 12:51 PM Gene Javier RN No [facility] Mental Status Date Assessment Result Facility 07-31-2023 Because of a physica l, mental, or emotional condition, do you have serious difficulty concentrating, remembering, or making decisions No 07/31/2023 12:51 PM Gene Javier RN No [facility] Clinical Notes 05-18-2019 to 03-10-2025 Ashley Amor APRN.SHON - 02/21/2025 12:18 PM EDTRosserCynthia - 02/21/2025 12:00 PM EDTPatient InstructionsTelephone Encounter - Lena Varner MD - 02/01/2025 9:34 AM EDTPatient Instructions Note Date & Type Note Facility 03-10-2025 Note SARS-COV-2 (AGENT OF COVID-19) RNA: Not detected INFLUENZA A RNA: Not detected INFLUENZA B RNA: Not detected RESPIRATORY SYNCYTIAL VIRUS (RSV) RNA: Not detected [facility] Comment on above: Performed By: #### 9 [id number] ####[facility] LABORATORYCLIA [id number] [place] [id number] [facility] 02-21-2025 Note HNO ID: [id number] Author: ASHLEY AMOR APRN.TERMINAL OPERATIONS MANAGER Service: ? Author Type: Nurse Practitioner Type: Progress Notes Filed: 02/21/2025 12:31 Note Text: PATIENT NAME: Thea Dorman DATE OF : 1965 TODAYS' DATE: 02/21/2025 Recording using Wowcracy software for draft documentation of the visit was discussed with the patient/authorized chain sales representative; all questions welcomed and answered. Patient/authorized chain sales representative agreed to proceed Subjective: The patient is a 60-year-old female presenting with a painful rash. History of Present Illness: Rash: - Onset 2 days ago. - Described as burning, painful, and pruritic. - Rash is erythematous with pinpoint lesions and warmth. - No similar rashes in the past; lives alone. - No known exposure to similar rashes. - Tried OTC hydrocortisone cream, which exacerbated the burning sensation. - Denies history of shingles. - Recent illness a few days ago. - Currently experiencing increased stress due to divorce. Review of Systems: Consitutional: (-) fever Skin: (+) rash, (+) localized warmth, (+) pruritus, (+) burning pain Psych: (+) increased stress Allergies: Allergies: Nsaids (Non-Steroid* Hives, Itching Comment:Pt gets hives and itching from taking any NSAIDS Sulfa (Sulfonamide * Diarrhea, GI Upset Past Medical History: PAST MEDICAL HISTORY Diagnosis Date Acute pulmonary embolism (HCC) 12/02/2016 Diabetes ([facility]) Drug overdose 11/29/2016 Hypertension Psychiatric disorder Pyelonephritis 09/06/2016 Suicide ([facility]) 03/31/2016 Past Surgical History: PAST SURGICAL HISTORY Procedure Laterality Date CHOLECYSTECTOMY HX HYSTERECTOMY HX TONSILLECTOMY HX Family History: FAMILY HISTORY Problem Relation Age of Onset Hypertension Mother Tobacco History: Tobacco Use: Types: Cigarettes Medications: Current Outpatient Medications Medication Sig Dispense Refill colesevelam (WELCHOL) 625 mg tablet Take 1,250 mg by mouth two times a day with meals. psyllium (METAMUCIL) 3.4 gram packet Take 1 Packet by mouth once daily. pantoprazole sodium (PANTOPRAZOLE ORAL) Take 40 mg by mouth two times a day. metFORMIN (GLUCOPHAGE) 1,000 mg tablet Take 1,000 mg by mouth two times a day with meals. albuterol HFA (PROVENTIL HFA, VENTOLIN HFA) 90 mcg/actuation inhaler Inhale 2 Puffs as instructed every 6 hours as needed for wheezing/shortness of breath. 8 g 0 linaGLIPtin (TRADJENTA) 5 mg tab Take 1 tablet by mouth once daily. 90 tablet 3 amLODIPine (NORVASC) 10 mg tablet Take 10 mg by mouth once daily. dapagliflozin 10 mg tab Take 10 mg by mouth daily with breakfast. glimepiride (AMARYL) 4 mg tablet Take 4 mg by mouth twice daily. irbesartan (AVAPRO) 150 mg tablet Take 150 mg by mouth daily at bedtime. PARoxetine (PAXIL) 20 mg tablet Take 20 mg by mouth twice daily. atorvastatin (LIPITOR) 40 mg tablet Take 40 mg by mouth once daily. clonazePAM (KLONOPIN) 0.5 mg tablet Take 1 mg by mouth two times a day. cholecalciferol (VITAMIN D) 1,000 unit tab tablet Take 1,000 Units by mouth once daily. mirtazapine (REMERON) 30 mg tablet Take 45 mg by mouth daily at bedtime. valACYclovir (VALTREX) 1 gram tablet Take 1 tablet by mouth three times a day for 7 days. 21 tablet 0 pramoxine-calamine (CALADRYL) 1-8 % lotion Apply 1 application to affected area as needed. 177 mL 0 No current facility-administered medications for this visit. Vitals: BP 131/76 (BP Site: Right Arm, BP Position: Sitting, BP Cuff Size: Regular Adult) Pulse 70 Temp 36.8 ?C (98.3 ?F) (Right Tympanic) Resp 18 Ht 165.1 cm (5' 5) Wt 90.8 kg (200 lb 2.8 oz) SpO2 94% BMI 33.31 kg/m? Physical Exam: Physical Exam Vitals reviewed. Constitutional: General: She is not in acute distress. Appearance: She is not ill-appearing, toxic-appearing or diaphoretic. Pulmonary: Effort: Pulmonary effort is normal. Skin: Findings: Rash (patch of erythematous papules to the left buttocks, some crusted over) present. Neurological: Mental Status: She is alert. Psychiatric: Behavior: Behavior is cooperative. ASSESSMENT/PLAN: (R21) Rash (primary encounter diagnosis) Plan: HERPES SIMPLEX VIRUS (HSV-1 AND HSV-2) AND VARICELLA ZOSTER VIRUS (VZV), NAAT, LESION SWAB, valACYclovir (VALTREX) 1 gram tablet, pramoxine-calamine (CALADRYL) 1-8 % lotion -Rash appears viral. Will send off swab to the lab. Start antivirals and caladryl. -Keep area clean and dry. Non scented antimicrobial soap and water. -If you have significant itching please avoid heat as this can make the itching worse. Cool compresses for comfort. -May use OTC antihistamines like Benadryl or loratadine for itching. -Do not pick at the site. This can lead to a secondary infection. -Signs of worsening infection: increased in size, streaking up or down the skin, fever of 101 F or higher, or copious drainage from the site. -If no improvement please follow up in 3-5 days with primary (more content not included)... [facility] 02-21-2025 History of Present illness Narrative Images from the original note were not included. PATIENT NAME: Thea Dorman DATE OF : 1965 TODAYS' DATE: 02/21/2025 Recording using Wowcracy software for draft documentation of the visit was discussed with the patient/authorized chain sales representative; all questions welcomed and answered. Patient/authorized chain sales representative agreed to proceed Subjective: The patient is a 60-year-old female presenting with a painful rash. History of Present Illness: Rash: - Onset 2 days ago. - Described as burning, painful, and pruritic. - Rash is erythematous with pinpoint lesions and warmth. - No similar rashes in the past; lives alone. - No known exposure to similar rashes. - Tried OTC hydrocortisone cream, which exacerbated the burning sensation. - Denies history of shingles. - Recent illness a few days ago. - Currently experiencing increased stress due to divorce. Review of Systems: Consitutional: (-) fever Skin: (+) rash, (+) localized warmth, (+) pruritus, (+) burning pain Psych: (+) increased stress Allergies: Allergies: Nsaids (Non-Steroid* Hives, Itching Comment:Pt gets hives and itching from taking any NSAIDS Sulfa (Sulfonamide * Diarrhea, GI Upset Past Medical History: PAST MEDICAL HISTORY Diagnosis Date Acute pulmonary embolism (HCC) 12/02/2016 Diabetes (HCC) Drug overdose 11/29/2016 Hypertension Psychiatric disorder Pyelonephritis 09/06/2016 Suicide (HCC) 03/31/2016 Past Surgical History: PAST SURGICAL HISTORY Procedure Laterality Date CHOLECYSTECTOMY HX HYSTERECTOMY HX TONSILLECTOMY HX Family History: FAMILY HISTORY Problem Relation Age of Onset Hypertension Mother Tobacco History: Tobacco Use: Types: Cigarettes Medications: Current Outpatient Medications Medication Sig Dispense Refill colesevelam (WELCHOL) 625 mg tablet Take 1,250 mg by mouth two times a day with meals. psyllium (METAMUCIL) 3.4 gram packet Take 1 Packet by mouth once daily. pantoprazole sodium (PANTOPRAZOLE ORAL) Take 40 mg by mouth two times a day. metFORMIN (GLUCOPHAGE) 1,000 mg tablet Take 1,000 mg by mouth two times a day with meals. albuterol HFA (PROVENTIL HFA, VENTOLIN HFA) 90 mcg/actuation inhaler Inhale 2 Puffs as instructed every 6 hours as needed for wheezing/shortness of breath. 8 g 0 linaGLIPtin (TRADJENTA) 5 mg tab Take 1 tablet by mouth once daily. 90 tablet 3 amLODIPine (NORVASC) 10 mg tablet Take 10 mg by mouth once daily. dapagliflozin 10 mg tab Take 10 mg by mouth daily with breakfast. glimepiride (AMARYL) 4 mg tablet Take 4 mg by mouth twice daily. irbesartan (AVAPRO) 150 mg tablet Take 150 mg by mouth daily at bedtime. PARoxetine (PAXIL) 20 mg tablet Take 20 mg by mouth twice daily. atorvastatin (LIPITOR) 40 mg tablet Take 40 mg by mouth once daily. clonazePAM (KLONOPIN) 0.5 mg tablet Take 1 mg by mouth two times a day. cholecalciferol (VITAMIN D) 1,000 unit tab tablet Take 1,000 Units by mouth once daily. mirtazapine (REMERON) 30 mg tablet Take 45 mg by mouth daily at bedtime. valACYclovir (VALTREX) 1 gram tablet Take 1 tablet by mouth three times a day for 7 days. 21 tablet 0 pramoxine-calamine (CALADRYL) 1-8 % lotion Apply 1 application to affected area as needed. 177 mL 0 No current facility-administered medications for this visit. Vitals: BP 131/76 (BP Site: Right Arm, BP Position: Sitting, BP Cuff Size: Regular Adult) Pulse 70 Temp 36.8 C (98.3 F) (Right Tympanic) Resp 18 Ht 165.1 cm (5' 5) Wt 90.8 kg (200 lb 2.8 oz) SpO2 94% BMI 33.31 kg/m Physical Exam: Physical Exam Vitals reviewed. Constitutional: General: She is not in acute distress. Appearance: She is not ill-appearing, toxic-appearing or diaphoretic. Pulmonary: Effort: Pulmonary effort is normal. Skin: Findings: Rash (patch of erythematous papules to the left buttocks, some crusted over) present. Neurological: Mental Status: She is alert. Psychiatric: Behavior: Behavior is cooperative. ASSESSMENT/PLAN: (R21) Rash (primary encounter diagnosis) Plan: HERPES SIMPLEX VIRUS (HSV-1 & HSV-2) AND VARICELLA ZOSTER VIRUS (VZV), NAAT, LESION SWAB, valACYclovir (VALTREX) 1 gram tablet, pramoxine-calamine (CALADRYL) 1-8 % lotion -Rash appears viral. Will send off swab to the lab. Start antivirals and caladryl. -Keep area clean and dry. Non scented antimicrobial soap and water. -If you have significant itching please avoid heat as this can make the itching worse. Cool compresses for comfort. -May use OTC antihistamines like Benadryl or loratadine for itching. -Do not pick at the site. This can lead to a secondary infection. -Signs of worsening infection: increased in size, streaking up or down the skin, fever of 101 F or higher, or copious drainage from the site. -If no improvement please follow up in 3-5 days with primary care. -Be seen immediately or go to the ER with worsening symptoms. - See patient instructions for further recommendations. - Pt education along with discharge instructions given to pt - Discussed Red Flag signs and when to go to ER. - Pt agreeable with plan and verbalizes understanding. - Follow up with PCP if symptoms worsen or do not improve in the next 2-3 days. Ashley Amor APRN.CNP 12:18 PM 02/21/25 Disposition The patient was discharged. Medical Decision Making: Level: 4 - Moderate Images from the original note were not included. HPI Thea Dorman is a 60 year old female who presents with a rash SUBJECTIVE Symptoms include: Positive for a rash on her left buttock, that is painful, itches and gu Denies drainage, fevers, chills Patient reports that she has been under more stress lately OTC meds/remedies that patient has tried: hydrocortisone cream, which made it burn more. Exposures: Sick contacts? No Symptoms started approximately 2 days ago Allergies: Nsaids (Non-Steroid* Hives, Itching Comment:Pt gets hives and itching from taking any NSAIDS Sulfa (Sulfonamide * Diarrhea, GI Upset PAST MEDICAL HISTORY Diagnosis Date Acute pulmonary embolism (HCC) 12/02/2016 Diabetes (HCC) Drug overdose 11/29/2016 Hypertension Psychiatric disorder Pyelonephritis 09/06/2016 Suicide (HCC) 03/31/2016 PAST SURGICAL HISTORY Procedure Laterality Date CHOLECYSTECTOMY HX HYSTERECTOMY HX TONSILLECTOMY HX Current Outpatient Medications Medication Sig Dispense Refill colesevelam (WELCHOL) 625 mg tablet Take 1,250 mg by mouth two times a day with meals. psyllium (METAMUCIL) 3.4 gram packet Take 1 Packet by mouth once daily. pantoprazole sodium (PANTOPRAZOLE ORAL) Take 40 mg by mouth two times a day. metFORMIN (GLUCOPHAGE) 1,000 mg tablet Take 1,000 mg by mouth two times a day with meals. albuterol HFA (PROVENTIL HFA, VENTOLIN HFA) 90 mcg/actuation inhaler Inhale 2 Puffs as instructed every 6 hours as needed for wheezing/shortness of breath. 8 g 0 linaGLIPtin (TRADJENTA) 5 mg tab Take 1 tablet by mouth once daily. 90 tablet 3 amLODIPine (NORVASC) 10 mg tablet Take 10 mg by mouth once daily. dapagliflozin 10 mg tab Take 10 mg by mouth daily with breakfast. glimepiride (AMARYL) 4 mg tablet Take 4 mg by mouth twice daily. irbesartan (AVAPRO) 150 mg tablet Take 150 mg by mouth daily at bedtime. PARoxetine (PAXIL) 20 mg tablet Take 20 mg by mouth twice daily. atorvastatin (LIPITOR) 40 mg tablet Take 40 mg by mouth once daily. clonazePAM (KLONOPIN) 0.5 mg tablet Take 1 mg by mouth two times a day. cholecalciferol (VITAMIN D) 1,000 unit tab tablet Take 1,000 Units by mouth once daily. mirtazapine (REMERON) 30 mg tablet Take 45 mg by mouth daily at bedtime. No current facility-administered medications for this visit. Family History Problem Relation Age of Onset Hypertension Mother Tobacco Use: High Risk (01/27/2025) Patient History Smoking Tobacco Use: Heavy Smoker Smokeless Tobacco Use: Never Passive Exposure: Not on file Review of Systems Constitutional: Negative for chills and fever. Skin: Positive for rash. All other systems reviewed and are negative. Objective BP 131/76 (BP Site: Right Arm, BP Position: Sitting, BP Cuff Size: Regular Adult) Pulse 70 Temp 36.8 C (98.3 F) (Right Tympanic) Resp 18 Ht 165.1 cm (5' 5) Wt 90.8 kg (200 lb 2.8 oz) SpO2 94% BMI 33.31 kg/m Physical Exam Constitutional: General: She is not in acute distress. Appearance: Normal appearance. She is normal weight. She is not ill-appearing. HENT: Head: Normocephalic. Right Ear: Tympanic membrane normal. Left Ear: Tympanic membrane normal. Nose: Nose normal. Mouth/Throat: Mouth: Mucous membranes are moist. Pharynx: Oropharynx is clear. Eyes: Extraocular Movements: Extraocular movements intact. Conjunctiva/sclera: Conjunctivae normal. Cardiovascular: Rate and Rhythm: Normal rate and regular rhythm. Pulses: Normal pulses. Heart sounds: Normal heart sounds. Pulmonary: Effort: Pulmonary effort is normal. Breath sounds: Normal breath sounds. Musculoskeletal: General: Normal range of motion. Cervical back: Normal range of motion and neck supple. Skin: General: Skin is warm and dry. Findings: Rash present. Rash is papular. Comments: To left buttock Neurological: General: No focal deficit present. Mental Status: She is alert and oriented to person, place, and time. Psychiatric: Mood and Affect: Mood normal. Behavior: Behavior normal. Thought Content: Thought content normal. Judgment: Judgment normal. Assessment and Plan (R21) Rash (primary encounter diagnosis) Plan: HERPES SIMPLEX VIRUS (HSV-1 & HSV-2) AND VARICELLA ZOSTER VIRUS (VZV), NAAT, LESION SWAB, valACYclovir (VALTREX) 1 gram tablet, pramoxine-calamine (CALADRYL) 1-8 % lotion -Rash appears viral. Will send off swab to the lab. Start antivirals and caladryl. -Keep area clean and dry. Non scented antimicrobial soap and water. -If you have significant itching please avoid heat as this can make the itching worse. Cool compresses for comfort. -May use OTC antihistamines like Benadryl or loratadine for itching. -Do not pick at the site. This can lead to a secondary infection. -Signs of worsening infection: increased in size, streaking up or down the skin, fever of 101 F or higher, or copious drainage from the site. -If no improvement please follow up in 3-5 days with primary care. -Be seen immediately or go to the ER with worsening symptoms. Medical Decision Making: Level: 4 - Moderate I spent a total of 20 minutes on the date of the service which included preparing to see the patient, [id number] patient care, completing clinical documentation, obtaining and/or reviewing separately obtained history, performing a medically appropriate examination, counseling and educating the patient/family/caregiver, and ordering medications, tests, or procedures. Cynthia Luz [facility] Student February 06, 2025 Cosigned by Ashley Amor APRN.SHON at 02/21/2025 12:32 PM EDT Associated attestation - Ashley Amor APRN.SHON - 02/21/2025 12:32 PM EDT I attest that I was present, not working on other tasks, and directing the student during this visit. I have reviewed the assessment above, agree with the above documentation of this student, and have made modifications to reflect my full assessment and plan. Ashley Amor APRN.SHON Signature: Ashley Amor APRN.CNP Date: 02/21/2025 Time: 12:32 PM documented in this encounter [facility] 02-21-2025 Instructions Ashley Amor APRN.SHON - 02/21/2025 12:08 PM EDT (R21) Rash (primary encounter diagnosis) Plan: HERPES SIMPLEX VIRUS (HSV-1 & HSV-2) AND VARICELLA ZOSTER VIRUS (VZV), NAAT, LESION SWAB, valACYclovir (VALTREX) 1 gram tablet, pramoxine-calamine (CALADRYL) 1-8 % lotion -Rash appears viral. Will send off swab to the lab. Start antivirals and caladryl. -Keep area clean and dry. Non scented antimicrobial soap and water. -If you have significant itching please avoid heat as this can make the itching worse. Cool compresses for comfort. -May use OTC antihistamines like Benadryl or loratadine for itching. -Do not pick at the site. This can lead to a secondary infection. -Signs of worsening infection: increased in size, streaking up or down the skin, fever of 101 F or higher, or copious drainage from the site. -If no improvement please follow up in 3-5 days with primary care. -Be seen immediately or go to the ER with worsening symptoms. [facility] PATIENT INFO SHINGLES Shingles (Herpes Zoster) What is shingles? Shingles is an infection caused by the same virus that causes chickenpox. This virus is called varicella zoster. You cannot develop shingles unless you have had a previous infection of chickenpox (usually as a child). Shingles is also called herpes zoster. This infection is most common in people over 60 years of age, but young people can have it as well. How does it occur? After you recover from chickenpox, the chickenpox virus is not destroyed. It moves back to the roots of your nerve cells (near the spinal cord) and becomes inactive (dormant). Later, if the virus is reactivated, the symptoms are called shingles. What exactly causes the reactivation of the virus is not known. A weakened immune system seems to allow reactivation of the virus. Advancing age and chronic use of cortisone-type drugs may trigger shingles. The virus may also become active again after the skin is injured or sunburned. Emotional stress seems to be a common trigger as well. What are the symptoms? The first sign of shingles is often burning, sharp pain, tingling, or numbness in or under your skin on one side of your body or face. The most common site is the back or upper abdomen. You may have severe itching or aching. You also may feel tired and ill with fever, chills, headache, and upset stomach. After several days, you will notice a rash of small, clear, fluid-filled blisters on reddened skin. Within 3 days after they appear, the blisters will turn yellow, then dry and crust over. Over the next 2 weeks the crusts will drop off, sometimes leaving small, pitted scars. Because they tend to follow nerve paths, the blisters are usually found in a line, often extending from the back or flank around to the abdomen, just on one side. Shingles usually doesn't cross the midline of the body. (The word shingles comes from the Latin word for belt or girdle.) The rash also may appear on one side of your face. Some people have painful eye inflammations and infections. Is shingles contagious? You can't get shingles from someone else, but you may get chickenpox from contact with shingles blisters if you have not had chickenpox before. The shingles virus is in the blister fluid. The virus can spread by direct contact with a blister. It can also be spread by indirect contact, for example, if you use a washcloth that has blister fluid on it. If you have shingles, avoid contact with infants, children, women, and adults who have never had chickenpox or the chickenpox shot until your blisters are completely dry. How is shingles diagnosed? Your health care provider will ask about your symptoms and examine you. Your provider may order lab tests to look for the virus in fluid from a blister. How is it treated? It is best to start treatment within 24 to 48 hours after symptoms start. Your health care provider may prescribe: -an antiviral drug, such as acyclovir, to speed recovery and lessen the chance of prolonged symptoms from nerve inflammation -painkillers for more serious discomfort if nonprescription painkillers are not helping enough -antibacterial salves or lotions to help prevent bacterial infection of the blisters -capsaicin cream for pain How long will the effects last? The rash from shingles will heal in 1 to 2 weeks and the pain or irritation will usually disappear within 3 to 5 weeks. If the virus damages a nerve, you may have pain, numbness, or tingling for months or even years after the rash is healed. This is a condition called postherpetic neuralgia. It is most likely to occur after a shingles outbreaks in people over 50 years old. Antiviral medicine prescribed at the time the shingles is diagnosed and taken for 7 days can help prevent this problem. How can I take care of myself? -Take a pain relief medicine such as acetaminophen. Take other medicine as prescribed by your health care provider. -Put a cool compress on the rash (such as a cool, moist washcloth). -Rest in bed during the early stages if you have fever and other symptoms. -Try to avoid having clothing or bed linens rubbing against the rash, which might irritate it. Call your health care provider if: -You develop worsening pain or fever. -The blisters show signs of bacterial infection, such as increasing pain or redness, or milky yellow drainage from the blister sites. -The blisters are close to the eyes. How can I help prevent shingles? -If you have never had chickenpox, you can get a shot to help prevent infection with the chickenpox virus. -You can protect your immune system and lessen your chances of getting shingles by trying to keep your stress under control documented in this encounter [facility] 02-21-2025 Note HNO ID: [id number] Author: ASHLEY AMOR APRN.CNP Service: ? Author Type: ? Type: Progress Notes Filed: 02/21/2025 12:32 Note Text: Attestation signed by Ashley Amor APRN.CNP at 02/21/2025 12:32 PM I attest that I was present, not working on other tasks, and directing the student during this visit. I have reviewed the assessment above, agree with the above documentation of this student, and have made modifications to reflect my full assessment and plan. Ashley Amor APRN.CNP Signature: Ashley Amor APRN.CNP Date: 02/21/2025 Time: 12:32 PM HPI Thea Dorman is a 60 year old female who presents with a rash SUBJECTIVE Symptoms include: Positive for a rash on her left buttock, that is painful, itches and gu Denies drainage, fevers, chills Patient reports that she has been under more stress lately OTC meds/remedies that patient has tried: hydrocortisone cream, which made it burn more. Exposures: Sick contacts? No Symptoms started approximately 2 days ago Allergies: Nsaids (Non-Steroid* Hives, Itching Comment:Pt gets hives and itching from taking any NSAIDS Sulfa (Sulfonamide * Diarrhea, GI Upset PAST MEDICAL HISTORY Diagnosis Date Acute pulmonary embolism (HCC) 12/02/2016 Diabetes ([facility]) Drug overdose 11/29/2016 Hypertension Psychiatric disorder Pyelonephritis 09/06/2016 Suicide ([facility]) 03/31/2016 PAST SURGICAL HISTORY Procedure Laterality Date CHOLECYSTECTOMY HX HYSTERECTOMY HX TONSILLECTOMY HX Current Outpatient Medications Medication Sig Dispense Refill colesevelam (WELCHOL) 625 mg tablet Take 1,250 mg by mouth two times a day with meals. psyllium (METAMUCIL) 3.4 gram packet Take 1 Packet by mouth once daily. pantoprazole sodium (PANTOPRAZOLE ORAL) Take 40 mg by mouth two times a day. metFORMIN (GLUCOPHAGE) 1,000 mg tablet Take 1,000 mg by mouth two times a day with meals. albuterol HFA (PROVENTIL HFA, VENTOLIN HFA) 90 mcg/actuation inhaler Inhale 2 Puffs as instructed every 6 hours as needed for wheezing/shortness of breath. 8 g 0 linaGLIPtin (TRADJENTA) 5 mg tab Take 1 tablet by mouth once daily. 90 tablet 3 amLODIPine (NORVASC) 10 mg tablet Take 10 mg by mouth once daily. dapagliflozin 10 mg tab Take 10 mg by mouth daily with breakfast. glimepiride (AMARYL) 4 mg tablet Take 4 mg by mouth twice daily. irbesartan (AVAPRO) 150 mg tablet Take 150 mg by mouth daily at bedtime. PARoxetine (PAXIL) 20 mg tablet Take 20 mg by mouth twice daily. atorvastatin (LIPITOR) 40 mg tablet Take 40 mg by mouth once daily. clonazePAM (KLONOPIN) 0.5 mg tablet Take 1 mg by mouth two times a day. cholecalciferol (VITAMIN D) 1,000 unit tab tablet Take 1,000 Units by mouth once daily. mirtazapine (REMERON) 30 mg tablet Take 45 mg by mouth daily at bedtime. No current facility-administered medications for this visit. Family History Problem Relation Age of Onset Hypertension Mother Tobacco Use: High Risk (01/27/2025) Patient History Smoking Tobacco Use: Heavy Smoker Smokeless Tobacco Use: Never Passive Exposure: Not on file Review of Systems Constitutional: Negative for chills and fever. Skin: Positive for rash. All other systems reviewed and are negative. Objective BP 131/76 (BP Site: Right Arm, BP Position: Sitting, BP Cuff Size: Regular Adult) Pulse 70 Temp 36.8 ?C (98.3 ?F) (Right Tympanic) Resp 18 Ht 165.1 cm (5' 5) Wt 90.8 kg (200 lb 2.8 oz) SpO2 94% BMI 33.31 kg/m? Physical Exam Constitutional: General: She is not in acute distress. Appearance: Normal appearance. She is normal weight. She is not ill-appearing. HENT: Head: Normocephalic. Right Ear: Tympanic membrane normal. Left Ear: Tympanic membrane normal. Nose: Nose normal. Mouth/Throat: Mouth: Mucous membranes are moist. Pharynx: Oropharynx is clear. Eyes: Extraocular Movements: Extraocular movements intact. Conjunctiva/sclera: Conjunctivae normal. Cardiovascular: Rate and Rhythm: Normal rate and regular rhythm. Pulses: Normal pulses. Heart sounds: Normal heart sounds. Pulmonary: Effort: Pulmonary effort is normal. Breath sounds: Normal breath sounds. Musculoskeletal: General: Normal range of motion. Cervical back: Normal range of motion and neck supple. Skin: General: Skin is warm and dry. Findings: Rash present. Rash is papular. Comments: To left buttock Neurological: General: No focal deficit present. Mental Status: She is alert and oriented to person, place, and time. Psychiatric: Mood and Affect: Mood normal. Behavior: Behavior normal. Thought Content: Thought content normal. Judgment: Judgment normal. Assessment and Plan (R21) Rash (primary encounter diagnosis) Plan: HERPES SIMPLEX VIRUS (HSV-1 AND HSV-2) AND VARICELLA ZOSTER VIRUS (VZV), NAAT, LESION S (more content not included)... [facility] 02-01-2025 Telephone encounter Note A1c is 7.2. This went up just a little bit. At this point we will continue her current diabetic meds but try to decrease carbohydrates and increase exercise. [facility] 02-01-2025 Miscellaneous Notes A1c is 7.2. This went up just a little bit. At this point we will continue her current diabetic meds but try to decrease carbohydrates and increase exercise. That is possible. Recheck again in 3 months. 1. Please call lab and see if we can add an A1c. #2 cholesterol and triglycerides look good. Continue low-fat diet and exercise. White blood cell counts are mildly elevated asked patient if she is having any cough or runny nose? If she is not we will follow back up with her in 3 months and recheck. documented in this encounter [facility] 01-31-2025 Telephone encounter Note That is possible. Recheck again in 3 months. [facility] 01-31-2025 Telephone encounter Note 1. Please call lab and see if we can add an A1c. #2 cholesterol and triglycerides look good. Continue low-fat diet and exercise. White blood cell counts are mildly elevated asked patient if she is having any cough or runny nose? If she is not we will follow back up with her in 3 months and recheck. [facility] 01-30-2025 History of Present illness Narrative Images from the original note were not included. [facility] - [address] [facility] [address] Dept: [phone] Dept Loc: [phone] Reason for Visit: Follow-up, Vaginitis/Bacterial Vaginosis (Was recently on ATB for UTI and now has Vaginal Yeast symptoms ), and Pain (Side pain to left side, possibly pulled muscle ) Assessment and Plan 1. Type 2 diabetes mellitus without complication, without long-term current use of insulin (HCC) A1c CMP ordered patient advised to continue metformin and Aleisha has had diabetic education she is to follow-up yearly with her eye exam. - Bilateral screening mammogram with tomosynthesis - Microalbumin / creatinine, urine ratio - CBC auto differential - Comprehensive metabolic panel - Lipid panel 2. Severe obesity (BMI 35.0-39.9) with comorbidity (HCC) - Bilateral screening mammogram with tomosynthesis 3. Major depressive disorder, recurrent severe without psychotic features (HCC) this is a chronic stable issue she is continuing the Paxil for. Psychiatry as well as on clonazepam through psychiatry - Bilateral screening mammogram with tomosynthesis - Microalbumin / creatinine, urine ratio - CBC auto differential - Comprehensive metabolic panel - Lipid panel 4. Essential hypertension, benign this is a chronic stable issue we will continue to monitor blood pressure is on Avapro. Low-salt diet - Bilateral screening mammogram with tomosynthesis - Microalbumin / creatinine, urine ratio - CBC auto differential - Comprehensive metabolic panel - Lipid panel 5. Screening mammogram, encounter for - Bilateral screening mammogram with tomosynthesis 6. Lumbar back pain I reviewed records from the emergency room I ordered x-rays of the lumbar spine. CT scan showed no acute findings. Patient currently completed all antibiotics - oxyCODONE-acetaminophen (Percocet) 5-325 MG tablet; Take 1 tablet by mouth every 8 hours as needed for severe pain (7-10) for up to 5 days., Starting 01/30/2025, Until 02/04/2025 at 2359, Print - XR lumbar spine 2 or 3 views 7. Current smoker Ordered ct scan. And scheduled. Patient did not get done, I would advise when patient can to get this done this is important to get the CT lung screening. She is aware I would advise to stop smoking she is aware of the deleterious effects of smoking current treatment plan is effective, no change in therapy, orders and follow up as documented in EMR, lab results reviewed with patient, repeat labs ordered prior to next appointment, reviewed compliance with lifestyle measures, reviewed diet, exercise and weight control, reviewed medications and side effects in detail Return visit in 3 month. Subjective Pain Pertinent negatives include no fever or headaches. This is a 60-year-old female who was recently in the emergency room. After experiencing lumbar back pain they checked a CT scan to rule out any kidney stones which was negative. Patient is still experiencing the back pain. She states it is severe she has pain when she is ambulating she is denying any numbness or tingling as stated CT scan was negative. No x-rays done. Patient states the muscle relaxants were just giving her for side effects and she does not tolerate she also does not tolerate anti-inflammatories as she states she has an allergic reaction to them. Patient is a type II diabetic currently she has not been compliant in checking her blood sugars. Her last A1c however had showed significant improvement. She and I discussed seeing ophthalmology yearly. In the past as well we had ordered a CT lung screening. Patient has never completed advised patient to get this done as she does have a history of tobacco use. Patient states she has been very busy taking care of a friend. Who recently underwent surgery. Advised patient however it is important to get these test done Review of Systems Constitutional: Negative. Negative for activity change, appetite change and fever. HENT: Negative. Negative for congestion. Eyes: Negative. Negative for discharge. Respiratory: Negative. Negative for chest tightness. Cardiovascular: Negative. Gastrointestinal: Negative. Endocrine: Negative. Negative for cold intolerance. Genitourinary: Negative for difficulty urinating. Musculoskeletal: Negative. Neurological: Negative. Negative for dizziness, facial asymmetry and headaches. Hematological: Negative. Allergies[1] Current Medications[2] Problem List[3] Medical History[4] Social History Tobacco Use Smoking status: Every Day Current packs/day: 0.50 Average packs/day: 0.5 packs/day for 40.0 years (20.0 ttl pk-yrs) Types: Cigarettes Smokeless tobacco: Never Substance Use Topics Alcohol use: No Surgical History[5] Family History[6] Health Maintenance Topic Date Due MMR Vaccines (1 of 1 - Standard series) Never done Diabetes: Foot Exam Never done Diabetes: Dental Exam Never done Hepatitis C Screening Never done Pneumococcal Vaccine: 50+ Years (1 of 2 - PCV) Never done Zoster Vaccines (1 of 2) Never done Mammogram 02/18/2021 Lung Cancer Screening 06/23/2022 DTaP/Tdap/Td Vaccines (2 - Td or Tdap) 12/04/2022 COVID-19 Vaccine ( - season) Never done Medicare Advantage Annual Wellness Visit Never done RSV Immunization for Adults (1 - Risk 60-74 years 1-dose series) Never done Diabetes: Urine Albumin-Creatinine Ratio for Kidney Health 01/24/2025 Depression Monitoring 08/01/2025 Lipid Panel 10/30/2025 Diabetes: Hemoglobin A1C 10/30/2025 Diabetes: Retinopathy Screening 01/09/2026 Diabetes: Estimated Glomerular Filtration Rate for Kidney Health 01/14/2026 Colorectal Cancer Screening 07/03/2029 Influenza Vaccine Completed HIV Screening Completed RSV Immunization under 20 Months Aged Out HIB Vaccines Aged Out Hepatitis B Vaccines Aged Out IPV Vaccines Aged Out Hepatitis A Vaccines Aged Out Meningococcal Vaccine Aged Out Rotavirus Vaccines Aged Out HPV Vaccines Aged Out Meningococcal B Vaccine Aged Out Objective BP 134/74 Pulse 86 Temp 36.5 C (97.7 F) Ht 5' 5 (1.651 m) Wt 203 lb (92.1 kg) SpO2 96% BMI 33.78 kg/m Physical Exam Vitals and nursing note reviewed. Constitutional: Appearance: Normal appearance. HENT: Head: Normocephalic and atraumatic. Nose: No congestion or rhinorrhea. Mouth/Throat: Mouth: Mucous membranes are moist. Pharynx: Oropharynx is clear. No posterior oropharyngeal erythema. Eyes: Extraocular Movements: Extraocular movements intact. Conjunctiva/sclera: Conjunctivae normal. Pupils: Pupils are equal, round, and reactive to light. Cardiovascular: Pulses: Normal pulses. Heart sounds: Normal heart sounds. No murmur heard. Pulmonary: Effort: Pulmonary effort is normal. No respiratory distress. Breath sounds: Normal breath sounds. No wheezing. Abdominal: General: Abdomen is flat. Bowel sounds are normal. Palpations: Abdomen is soft. Tenderness: There is no abdominal tenderness. Musculoskeletal: General: No swelling. Cervical back: Normal range of motion. Skin: General: Skin is warm and dry. Neurological: General: No focal deficit present. Mental Status: She is alert and oriented to person, place, and time. Mental status is at baseline. Psychiatric: Mood and Affect: Mood normal. Data Reviewed and Summarized Labs: Lab Results Component Value Date WBC 10.6 10/30/2024 HGB 12.6 10/30/2024 HCT 39.2 10/30/2024 PLT 361 10/30/2024 TSH 1.10 10/30/2024 Lab Results Component Value Date NA 140 10/30/2024 K 3.4 (L) 10/30/2024 CL 107 10/30/2024 CO2 25 10/30/2024 BUN 10 10/30/2024 CREATININE 0.80 10/30/2024 GLUCOSE 105 (H) 10/30/2024 CALCIUM 9.4 10/30/2024 PROT 7.5 10/30/2024 BILITOT 0.4 10/30/2024 ALKPHOS 122 10/30/2024 AST 23 10/30/2024 ALT 16 10/30/2024 AGRATIO 1.8 07/24/2024 GLOB 2.5 07/24/2024 @GLUCOSELAB@ Lab Results Component Value Date CHOL 163 10/30/2024 CHOL 202 (H) 04/12/2023 CHOL 200 (A) 05/04/2022 Lab Results Component Value Date TRIG 144 10/30/2024 TRIG 184 (H) 04/12/2023 TRIG 141 05/04/2022 Lab Results Component Value Date HDL 46 (L) 10/30/2024 HDL 42 04/12/2023 HDL 47 05/04/2022 Lab Results Component Value Date LDLCALC 88 10/30/2024 LDLCALC 123 (H) 04/12/2023 No results found for: VLDL Lab Results Component Value Date CHOLHDLRATIO 4 10/30/2024 CHOLHDLRATIO 5 04/12/2023 CHOLHDLRATIO 4 05/04/2022 Imaging/Testing: ECG 12 lead Sinus rhythm Compared to ECG 12/03/2021 14:02:50 No significant changes Electronically Signed On 07-25-2023 4:24:15 EST by Ilya Vraner MD [1] Allergies Allergen Reactions Nsaids Anaphylaxis, Hives and Itching Pt gets hives and itching from taking any NSAIDS Flexeril [Cyclobenzaprine] Sleepy does Sulfa Antibiotics Diarrhea Other reaction(s): GI Upset Sulfamethoxazole-Trimethoprim Diarrhea and Nausea And Vomiting [2] Current Outpatient Medications Medication Sig Dispense Refill amLODIPine (Norvasc) 10 MG tablet Take 1 tablet (10 mg) by mouth daily. 90 tablet 1 atorvastatin (Lipitor) 40 MG tablet Take 1 tablet (40 mg) by mouth daily. 90 tablet 1 cholecalciferol (Vitamin D-3) 25 MCG (1000 UT) tablet Take 1,000 Units by mouth daily. clonazePAM (KlonoPIN) 0.5 MG tablet Take 0.5 mg by mouth in the morning and 0.5 mg in the evening. colesevelam (Welchol) 625 MG tablet Take 1,250 mg by mouth 2 times daily. dapagliflozin (Farxiga) 10 MG tablet Take 1 tablet (10 mg) by mouth daily. 90 tablet 1 glimepiride (Amaryl) 4 MG tablet TAKE ONE BY MOUTH TWICE DAILY WITH MEALS 180 tablet 1 Glucometer by Other route daily. Once daily thing in the a.m. 1 kit 0 glucose blood test strip Use as instructed 100 each 12 irbesartan (Avapro) 150 MG tablet Take 1 tablet (150 mg) by mouth daily. 90 tablet 1 linaGLIPtin (Tradjenta) 5 MG tablet Take 1 tablet (5 mg) by mouth daily. 90 tablet 1 metFORMIN (Glucophage) 1000 MG tablet Take 1 tablet (1,000 mg) by mouth 2 times daily (with meals). 180 tablet 1 mirtazapine (Remeron) 30 MG tablet Take 45 mg by mouth. PARoxetine (Paxil) 20 MG tablet Take 20 mg by mouth 2 times daily. fluconazole (Diflucan) 100 MG tablet Take 1 tablet (100 mg) by mouth daily for 3 days. 3 tablet 0 oxyCODONE-acetaminophen (Percocet) 5-325 MG tablet Take 1 tablet by mouth every 8 hours as needed for severe pain (7-10) for up to 5 days. 15 tablet 0 No current facility-administered medications for this visit. [3] Patient Active Problem List Diagnosis Hypoxia Personal history of noncompliance with medical treatment, presenting hazards to health Severe obesity (BMI 35.0-39.9) with comorbidity (HCC) Malaise and fatigue Type 2 diabetes mellitus without complication, without long-term current use of insulin (HCC) Esophageal reflux Episode of recurrent major depressive disorder (HCC) Current smoker Pain in joint, ankle and foot Hypercholesteremia Fatty liver Insomnia Abnormal TSH Colitis Hypertension Graves disease Mediastinal mass Steroid-induced hyperglycemia Pneumonia due to COVID-19 virus Chronic low back pain Vitamin D deficiency Major depressive disorder, recurrent severe without psychotic features (HCC) [4] Past Medical History: Diagnosis Date Alimentary obesity 04/03/2016 Anxiety Asthma Chronic low back pain 04/03/2016 COPD exacerbation (HCC) 06/11/2020 Depression Fatty liver 02/06/2015 GERD (gastroesophageal reflux disease) H/O ovarian cystectomy History of LAVH Hx of blood clots Hyperglycemia Hyperlipidemia Hypertension Insomnia 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 Noncompliance Osteoarthritis Pulmonary embolism (HCC) Thyroid disease Tobacco abuse Type II or unspecified type diabetes mellitus without mention of complication, not stated as uncontrolled (HCC) Weakness [5] Past Surgical History: Procedure Laterality Date CATARACT EXTRACTION Left 2022 CATARACT EXTRACTION Right 11/2023 CHOLECYSTECTOMY COLONOSCOPY PLEURA BIOPSY 08/11/2021 VATs with thoracotomy resection of mediastinal mass TONSILLECTOMY (HISTORICAL) TOTAL ABDOMINAL HYSTERECTOMY [6] Family History Problem Relation Name Age of Onset High Blood Pressure Father Arthritis Brother Hyperlipidemia Mother Diabetes Mother High Blood Pressure Mother Arthritis Mother Hyperlipidemia Father documented in this encounter [facility] 01-11-2025 Telephone encounter Note Spoke with patient and discussed her right heel pain. Patient stated she has plantar warts. Patient is going to find a multiple cut off saw operator in the [facility]. [facility] 01-11-2025 Miscellaneous Notes Spoke with patient and discussed her right heel pain. Patient stated she has plantar warts. Patient is going to find a multiple cut off saw operator in the [place] area. LM to schedule patient at [facility] with Dr. Faustin. LM to schedule patient for [facility]. S: This RN received outreach via secure chat from Dr. Robert. B: [facility] ED- 01/05/2025 - right heel pain A: Per Dr. Robert, Can we get her in to a multiple cut off saw operator in [place]? [employer]. Referral placed and patient phone number verified by Dr. Robert. R: This RN is unable to schedule patient appointment. Please reach out to patient and advise. Reason for Disposition General information question, no triage required and triager able to answer question Protocols used: Information Only Call - No [id number] documented in this encounter [facility] 01-09-2025 Telephone encounter Note LM to schedule patient at [facility] with Dr. Faustin. [facility] 01-09-2025 Miscellaneous Notes ANJALI to schedule patient at [facility] with Dr. Faustin. LM to schedule patient for [facility]. S: This RN received outreach via secure chat from Dr. Robert. B: [facility] ED- 01/05/2025 - right heel pain A: Per Dr. Robert, Can we get her in to a multiple cut off saw operator in [place]? [employer] Medicare/[employer]. Referral placed and patient phone number verified by Dr. Robert. R: This RN is unable to schedule patient appointment. Please reach out to patient and advise. Reason for Disposition General information question, no triage required and triager able to answer question Protocols used: Information Only Call - No [id number] documented in this encounter [facility] 01-08-2025 Telephone encounter Note LM to schedule patient for [facility]. [facility] 01-05-2025 Note S: This RN received outreach via secure chat from Dr. Robert. B: [facility] ED- 01/05/2025 - right heel pain A: Per Dr. Robert, Can we get her in to a multiple cut off saw operator in [place]? [employer]. Referral placed and patient phone number verified by Dr. Robert. R: This RN is unable to schedule patient appointment. Please reach out to patient and advise. Reason for Disposition General information question, no triage required and triager able to answer question Protocols used: Information Only Call - No [id number] encounter Note S: This RN received outreach via secure chat from Dr. Robert. B: [facility] ED- 01/05/2025 - right heel pain A: Per Dr. Robert, Can we get her in to a multiple cut off saw operator in [place]? [employer]. Referral placed and patient phone number verified by Dr. Robert. R: This RN is unable to schedule patient appointment. Please reach out to patient and advise. Reason for Disposition General information question, no triage required and triager able to answer question Protocols used: Information Only Call - No [id number] [facility] 11-19-2024 Telephone encounter Note noted [facility] 11-19-2024 Miscellaneous Notes noted FYI: Sched pt for CT-Lung on 12/06/24 and Routine MAMM on 12/17/24. Pt cancelled both test with no reason given per cancellation notes Pt shed. MCM sent and info letter mailed to pt. Extra orders cancelled yes There are 3 orders for pt to have CT-Lung Screen. Scheduling asking if 2 can be cancelled. Okay to do this as patient is scheduled on most recent orders. documented in this encounter [facility] 11-15-2024 Telephone encounter Note FYI: Sched pt for CT-Lung on 12/06/24 and Routine MAMM on 12/17/24. Pt cancelled both test with no reason given per cancellation notes [facility] 11-15-2024 Miscellaneous Notes FYI: Sched pt for CT-Lung on 12/06/24 and Routine MAMM on 12/17/24. Pt cancelled both test with no reason given per cancellation notes Pt shed. MCM sent and info letter mailed to pt. Extra orders cancelled yes There are 3 orders for pt to have CT-Lung Screen. Scheduling asking if 2 can be cancelled. Okay to do this as patient is scheduled on most recent orders. documented in this encounter [facility] 11-08-2024 Telephone encounter Note Pt shed. MCM sent and info letter mailed to pt. Extra orders cancelled [facility] 11-08-2024 Note Addended by: JOSIE URRUTIA on: 11/08/2024 02:30 PM Modules accepted: Orders [facility] 11-08-2024 Miscellaneous Notes Addended by: JOSIE URRUTIA on: 11/08/2024 02:30 PM Modules accepted: Orders Noted New order put in Will need new orders with updated dx. Previous dx of F17.200 didn't pass medical necessity. You can use #F17.210 Ok thank you There is an order there from April do I need to create another order? I was told by scheduling that previous orders for CT-Lung Screen doesn't pass medical necessity. We need new orders please documented in this encounter [facility] 11-08-2024 Telephone encounter Note yes [facility] 11-08-2024 Telephone encounter Note There are 3 orders for pt to have CT-Lung Screen. Scheduling asking if 2 can be cancelled. Okay to do this as patient is scheduled on most recent orders. [facility] 10-30-2024 History of Present illness Narrative Images from the original note were not included. [facility] - [address] [facility] [address] Dept: [phone] Dept Loc: [phone] Reason for Visit: Follow-up Assessment and Plan 1. Type 2 diabetes mellitus without complication, without long-term current use of insulin (CMS/HCC) (HCC) - dapagliflozin (Farxiga) 10 MG tablet; Take 1 tablet (10 mg) by mouth daily., Starting Tue10/30/2024, Until Tue01/28/2025, Normal - metFORMIN (Glucophage) 1000 MG tablet; Take 1 tablet (1,000 mg) by mouth 2 times daily (with meals)., Starting Tue10/30/2024, Until 04/28/2025, Normal - Lipid panel - CBC auto differential - Comprehensive metabolic panel - TSH - Hemoglobin A1c - HIV-1 and HIV-2 Antigen-Antibody Screen 2. Major depressive disorder, recurrent severe without psychotic features (HCC) - Lipid panel - CBC auto differential - Comprehensive metabolic panel - TSH - HIV-1 and HIV-2 Antigen-Antibody Screen 3. HTN (hypertension), benign - Lipid panel - CBC auto differential - Comprehensive metabolic panel - TSH - Hemoglobin A1c - HIV-1 and HIV-2 Antigen-Antibody Screen 4. Hypercholesteremia - HIV-1 and HIV-2 Antigen-Antibody Screen 5. Essential hypertension, benign - amLODIPine (Norvasc) 10 MG tablet; Take 1 tablet (10 mg) by mouth daily., Starting Tue10/30/2024, Normal - irbesartan (Avapro) 150 MG tablet; Take 1 tablet (150 mg) by mouth daily., Starting Tue10/30/2024, Normal - HIV-1 and HIV-2 Antigen-Antibody Screen Smoking she is seeing the patches. She never scheduled for CT lung screening. We have to reauthorize the test because it was never completed. Advised patient the importance of getting tests current treatment plan is effective, no change in therapy, orders and follow up as documented in EMR, lab results reviewed with patient, repeat labs ordered prior to next appointment, reviewed compliance with lifestyle measures, reviewed diet, exercise and weight control, reviewed medications and side effects in detail Return visit in 3 month. Subjective HPI 59-year-old female who has been working very hard losing weight watching her diabetes she is now exercising daily. She states she has been decreasing carbohydrates never eat much sweets she could not afford the [employer] system so we discussed she needs to get a glucometer and test strips I will write a prescription she needs to check at fasting once a day in the a.m. she has an appointment coming up with her retinal specialist she does see psychiatry for her mental health. No new issues with that she also has a history of hyperlipidemia she is on a statin no muscle pain or weakness. Review of Systems Constitutional: Negative. Negative for activity change, appetite change and fever. HENT: Negative. Negative for congestion. Eyes: Negative. Negative for discharge. Respiratory: Negative. Negative for chest tightness. Cardiovascular: Negative. Gastrointestinal: Negative. Endocrine: Negative. Negative for cold intolerance. Genitourinary: Negative for difficulty urinating. Musculoskeletal: Negative. Neurological: Negative. Negative for dizziness, facial asymmetry and headaches. Hematological: Negative. Allergies Allergen Reactions Nsaids Anaphylaxis, Hives and Itching Pt gets hives and itching from taking any NSAIDS Sulfa Antibiotics Diarrhea Other reaction(s): GI Upset Sulfamethoxazole-Trimethoprim Diarrhea and Nausea And Vomiting Current Outpatient Medications Medication Sig Dispense Refill cholecalciferol (Vitamin D-3) 25 MCG (1000 UT) tablet Take 1,000 Units by mouth daily. clonazePAM (KlonoPIN) 0.5 MG tablet Take 0.5 mg by mouth in the morning and 0.5 mg in the evening. colesevelam (Welchol) 625 MG tablet Take 1,250 mg by mouth 2 times daily. linaGLIPtin (Tradjenta) 5 MG tablet Take 1 tablet (5 mg) by mouth daily. 90 tablet 1 mirtazapine (Remeron) 30 MG tablet Take 45 mg by mouth. PARoxetine (Paxil) 20 MG tablet Take 20 mg by mouth 2 times daily. amLODIPine (Norvasc) 10 MG tablet Take 1 tablet (10 mg) by mouth daily. 90 tablet 1 atorvastatin (Lipitor) 40 MG tablet Take 1 tablet (40 mg) by mouth daily. 90 tablet 1 dapagliflozin (Farxiga) 10 MG tablet Take 1 tablet (10 mg) by mouth daily. 90 tablet 1 glimepiride (Amaryl) 4 MG tablet TAKE ONE BY MOUTH TWICE DAILY WITH MEALS 180 tablet 1 Glucometer by Other route daily. Once daily thing in the a.m. 1 kit 0 glucose blood test strip Use as instructed 100 each 12 irbesartan (Avapro) 150 MG tablet Take 1 tablet (150 mg) by mouth daily. 90 tablet 1 Lancets by Other route daily. 100 each 12 metFORMIN (Glucophage) 1000 MG tablet Take 1 tablet (1,000 mg) by mouth 2 times daily (with meals). 180 tablet 1 No current facility-administered medications for this visit. Patient Active Problem List Diagnosis Hypoxia Personal history of noncompliance with medical treatment, presenting hazards to health Severe obesity (BMI 35.0-39.9) with comorbidity (HCC) Malaise and fatigue Type 2 diabetes mellitus without complication, without long-term current use of insulin ([facility]/HCC) (HCC) Esophageal reflux Episode of recurrent major depressive disorder (HCC) Current smoker Pain in joint, ankle and foot Hypercholesteremia Fatty liver Insomnia Abnormal TSH Colitis Hypertension Graves disease Mediastinal mass Steroid-induced hyperglycemia Pneumonia due to COVID-19 virus Chronic low back pain Vitamin D deficiency Major depressive disorder, recurrent severe without psychotic features (HCC) Past Medical History: Diagnosis Date Alimentary obesity 04/03/2016 Anxiety Asthma Chronic low back pain 04/03/2016 COPD exacerbation (HCC) 06/11/2020 Depression Fatty liver 02/06/2015 GERD (gastroesophageal reflux disease) H/O ovarian cystectomy History of LAVH Hx of blood clots Hyperglycemia Hyperlipidemia Hypertension Insomnia 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 Noncompliance Osteoarthritis Pulmonary embolism (HCC) Thyroid disease Tobacco abuse Type II or unspecified type diabetes mellitus without mention of complication, not stated as uncontrolled (HCC) Weakness Social History Tobacco Use Smoking status: Every Day Current packs/day: 0.50 Average packs/day: 0.5 packs/day for 40.0 years (20.0 ttl pk-yrs) Types: Cigarettes Smokeless tobacco: Never Substance Use Topics Alcohol use: No Past Surgical History: Procedure Laterality Date CATARACT EXTRACTION Left 2022 CATARACT EXTRACTION Right 11/2023 CHOLECYSTECTOMY COLONOSCOPY PLEURA BIOPSY 08/11/2021 VATs with thoracotomy resection of mediastinal mass TONSILLECTOMY (HISTORICAL) TOTAL ABDOMINAL HYSTERECTOMY Family History Problem Relation Name Age of Onset High Blood Pressure Father Arthritis Brother Hyperlipidemia Mother Diabetes Mother High Blood Pressure Mother Arthritis Mother Hyperlipidemia Father Health Maintenance Topic Date Due HIV Screening Never done MMR Vaccines (1 of 1 - Standard series) Never done Diabetes: Foot Exam Never done Diabetes: Dental Exam Never done Depression Monitoring Never done Hepatitis C Screening Never done Hepatitis B Vaccines (1 of 3 - 19+ 3-dose series) Never done Pneumococcal Vaccine: 50+ Years (1 of 2 - PCV) Never done Zoster Vaccines (1 of 2) Never done Mammogram 02/18/2021 Lung Cancer Screening 06/23/2022 DTaP/Tdap/Td Vaccines (2 - Td or Tdap) 12/04/2022 COVID-19 Vaccine ( - 2023- season) Never done Diabetes: Retinopathy Screening 10/24/2024 Diabetes: Urine Albumin-Creatinine Ratio for Kidney Health 01/24/2025 Diabetes: Estimated Glomerular Filtration Rate for Kidney Health 07/24/2025 Lipid Panel 07/24/2025 Diabetes: Hemoglobin A1C 07/24/2025 Colorectal Cancer Screening 07/03/2029 RSV Immunization for Adults (1 - 1-dose 75+ series) 01/14/2040 Influenza Vaccine Completed RSV Immunization under 20 Months Aged Out HIB Vaccines Aged Out IPV Vaccines Aged Out Hepatitis A Vaccines Aged Out Meningococcal Vaccine Aged Out Rotavirus Vaccines Aged Out HPV Vaccines Aged Out Objective BP 116/84 Pulse 77 Temp 36.8 C (98.2 F) Ht 5' 5.1 (1.654 m) Wt 214 lb (97.1 kg) SpO2 94% BMI 35.50 kg/m Physical Exam Vitals and nursing note reviewed. Constitutional: Appearance: Normal appearance. HENT: Head: Normocephalic and atraumatic. Nose: No congestion or rhinorrhea. Mouth/Throat: Mouth: Mucous membranes are moist. Pharynx: Oropharynx is clear. No posterior oropharyngeal erythema. Eyes: Extraocular Movements: Extraocular movements intact. Conjunctiva/sclera: Conjunctivae normal. Pupils: Pupils are equal, round, and reactive to light. Cardiovascular: Pulses: Normal pulses. Heart sounds: Normal heart sounds. No murmur heard. Pulmonary: Effort: Pulmonary effort is normal. No respiratory distress. Breath sounds: Normal breath sounds. No wheezing. Abdominal: General: Abdomen is flat. Bowel sounds are normal. Palpations: Abdomen is soft. Tenderness: There is no abdominal tenderness. Musculoskeletal: General: No swelling. Cervical back: Normal range of motion. Skin: General: Skin is warm and dry. Neurological: General: No focal deficit present. Mental Status: She is alert and oriented to person, place, and time. Mental status is at baseline. Psychiatric: Mood and Affect: Mood normal. Data Reviewed and Summarized Labs: Lab Results Component Value Date WBC 10.7 05/08/2024 HGB 13.1 05/08/2024 HCT 42.2 05/08/2024 PLT 424 (H) 05/08/2024 TSH 0.698 04/12/2023 Lab Results Component Value Date NA 138 07/24/2023 K 3.2 (L) 07/24/2023 CL 106 07/24/2023 CO2 24 07/24/2024 BUN 12 07/24/2024 CREATININE 0.71 07/24/2024 GLUCOSE 103 (H) 07/24/2024 CALCIUM 9.4 07/24/2024 PROT 7.0 07/24/2024 BILITOT 0.4 07/24/2024 ALKPHOS 107 07/24/2024 AST 15 07/24/2024 ALT 9 07/24/2024 AGRATIO 1.8 07/24/2024 GLOB 2.5 07/24/2024 @GLUCOSELAB@ Lab Results Component Value Date CHOL 202 (H) 04/12/2023 CHOL 200 (A) 05/04/2022 CHOL 182 01/19/2021 Lab Results Component Value Date TRIG 184 (H) 04/12/2023 TRIG 141 05/04/2022 TRIG 115 01/19/2021 Lab Results Component Value Date HDL 42 04/12/2023 HDL 47 05/04/2022 HDL 56 01/19/2021 Lab Results Component Value Date LDLCALC 123 (H) 04/12/2023 No results found for: VLDL Lab Results Component Value Date CHOLHDLRATIO 5 04/12/2023 CHOLHDLRATIO 4 05/04/2022 CHOLHDLRATIO 3 01/19/2021 Imaging/Testing: ECG 12 lead Sinus rhythm Compared to ECG 12/03/2021 14:02:50 No significant changes Electronically Signed On 07-25-2023 4:24:15 EST by Ilya Varner MD documented in this encounter [facility] 10-09-2024 Telephone encounter Note We have been unable to reach your patient to schedule their testing. Test Name: CT lung screening low dose 1st Attempt: 10/05/24 2nd Attempt: 10/09/24 [facility] 10-09-2024 Miscellaneous Notes We have been unable to reach your patient to schedule their testing. Test Name: CT lung screening low dose 1st Attempt: 10/05/24 2nd Attempt: 10/09/24 documented in this encounter [facility] 10-07-2024 Telephone encounter Note Name of caller: Philly Contact phone number: [phone] Relationship to Patient: Patient Provider: Dr. Varner Practice: [facility] Chief Complaint/Reason for Call: Patient states that her prescriptions were cancelled at her pharmacy. She is requesting they be sent back over, as she is out of them. Please advise. glimepiride metFORMIN linaGLIPtin Best time of day caller can be reached: any Patient advised that office/PCP has 24-48 business hours to return their call: Yes [facility] 10-07-2024 Miscellaneous Notes Name of caller: Philly Contact phone number: [phone] Relationship to Patient: Patient Provider: Dr. Varner Practice: [facility] Chief Complaint/Reason for Call: Patient states that her prescriptions were cancelled at her pharmacy. She is requesting they be sent back over, as she is out of them. Please advise. glimepiride metFORMIN linaGLIPtin Best time of day caller can be reached: any Patient advised that office/PCP has 24-48 business hours to return their call: Yes documented in this encounter [facility] 09-24-2024 Telephone encounter Note Message released to patient as written. Office does not except refill request via fax. Patient will need to call for refills. Patient's further questions if applicable: no Were all questions from office addressed or relayed to the patient from encounter: Yes [facility] 09-24-2024 Miscellaneous Notes Message released to patient as written. Office does not except refill request via fax. Patient will need to call for refills. Patient's further questions if applicable: no Were all questions from office addressed or relayed to the patient from encounter: Yes Office does not except refill request via fax. Patient will need to call for refills. Name of caller: Sedrick Contact phone number: [phone] Relationship to Patient: Pharmacist Provider: Annie Practice: [facility] Chief Complaint/Reason for Call: Surendra states he will fax over information about several medications that need filled. Please advise Pharmacy with further questions. Best time of day caller can be reached: any Patient advised that office/PCP has 24-48 business hours to return their call: Yes documented in this encounter [facility] 09-18-2024 Telephone encounter Note Office does not except refill request via fax. Patient will need to call for refills. [facility] 09-18-2024 Telephone encounter Note Name of caller: Sedrick Contact phone number: [phone] Relationship to Patient: Pharmacist Provider: Annie Practice: [facility] Chief Complaint/Reason for Call: Surendra states he will fax over information about several medications that need filled. Please advise Pharmacy with further questions. Best time of day caller can be reached: any Patient advised that office/PCP has 24-48 business hours to return their call: Yes [facility] 09-07-2024 Telephone encounter Note Ordering provider: Dr Varenr Date of last office visit: 08/20/24 Date of next office visit: 10/23/24 Updated/Validated preferred pharmacy: Yes Patient instructed to contact the pharmacy prior to picking up the medication: Yes (1) Medication name: linaGLIPtin (Tradjenta) 5 MG tablet () Monthly quantity needed: 30 How many day supply requestin days Medication route: oral (PO) Medication administration time(s): daily If taking medication PRN, reason for taking medication: N/A If this is a controlled substance do you receive this or any other controlled medication from any other doctor or facility: No Date of last refill (see medication tab): (2) Medication name: metFORMIN (Glucophage) 1000 MG tablet () Monthly quantity needed: 60 How many day supply requestin days Medication route: oral (PO) Medication administration time(s): 2 times a day (BID) If taking medication PRN, reason for taking medication: N/A If this is a controlled substance do you receive this or any other controlled medication from any other doctor or facility: N/A Date of last refill (see medication tab): [facility] 09-07-2024 Miscellaneous Notes Ordering provider: Dr Varner Date of last office visit: 08/20/24 Date of next office visit: 10/23/24 Updated/Validated preferred pharmacy: Yes Patient instructed to contact the pharmacy prior to picking up the medication: Yes (1) Medication name: linaGLIPtin (Tradjenta) 5 MG tablet () Monthly quantity needed: 30 How many day supply requestin days Medication route: oral (PO) Medication administration time(s): daily If taking medication PRN, reason for taking medication: N/A If this is a controlled substance do you receive this or any other controlled medication from any other doctor or facility: No Date of last refill (see medication tab): (2) Medication name: metFORMIN (Glucophage) 1000 MG tablet () Monthly quantity needed: 60 How many day supply requestin days Medication route: oral (PO) Medication administration time(s): 2 times a day (BID) If taking medication PRN, reason for taking medication: N/A If this is a controlled substance do you receive this or any other controlled medication from any other doctor or facility: N/A Date of last refill (see medication tab): documented in this encounter [facility] 08-20-2024 Telephone encounter Note Name of caller: Kobe Contact phone number: [phone] Relationship to Patient: [facility] Pharmacy Provider: Annie Practice: [facility] Chief Complaint/Reason for Call: Patient is asking for brand name of dapagliflozin (Farxiga) 10 MG tablet. The prescription was written with a ISA code. Can the doctor take the ISA code off prescription. A new script or verbal can be done. Please advise.. Best time of day caller can be reached: any Patient advised that office/PCP has 24-48 business hours to return their call: No [facility] 08-20-2024 Miscellaneous Notes Name of caller: Kobe Contact phone number: [phone] Relationship to Patient: [facility] Pharmacy Provider: Annie [facility] Chief Complaint/Reason for Call: Patient is asking for brand name of dapagliflozin (Farxiga) 10 MG tablet. The prescription was written with a ISA code. Can the doctor take the ISA code off prescription. A new script or verbal can be done. Please advise.. Best time of day caller can be reached: any Patient advised that office/PCP has 24-48 business hours to return their call: No documented in this encounter [facility] 08-20-2024 History of Present illness Narrative Images from the original note were not included. [facility] - [address] [facility] [address] Dept: [phone] Dept Loc: [phone] Reason for Visit: discharge Patient was identified and seen today via Telehealth by agreement and consent. I used the following Telehealth technology: Audio capability only. Total length of call 20 minutes. The patient was offered and advised video for a more comprehensive evaluation, but the patient declined or was unable to use video. Patient location: [place] Patient Location: Home. This patient encounter is appropriate and reasonable under the circumstances: . The patient has been advised of the potential risks and limitations of this mode of treatment (including but not limited to the absence of in-person examination) and has agreed to be treated in a remote fashion in spite of them. Any and all of the patient's/patient's family's questions on this issue have been answered and I have made no promises or guarantees to the patient. The patient has also been advised to contact this office for worsening conditions or problems, and seek emergency medical treatment and/or call 911 if the patient deems either necessary. The patient stated that they are currently in the [facility]. If the patient is a minor, permission has been obtained by the parent or guardian for the patient to receive medical care at this visit. Assessment and Plan 1. Yeast infection Diflucan milligrams x 7 days sent to pharmacy. Discussed with patient if symptoms persist would recommend a follow-up appointment for this. 2. Type 2 diabetes mellitus without complication, without long-term current use of insulin ([facility]) ([facility]) - dapagliflozin (Farxiga) 10 MG tablet; Take 1 tablet (10 mg) by mouth daily., Starting 08/20/2024, Until 11/18/2024, Normal current treatment plan is effective, no change in therapy, orders and follow up as documented in EMR, lab results reviewed with patient, repeat labs ordered prior to next appointment, reviewed compliance with lifestyle measures, reviewed diet, exercise and weight control, reviewed medications and side effects in detail Return visit in 3 months. Subjective HPI is a 59-year-old female patient who has been complaining of some vaginal itching and whitish discharge that she has had for the last several days. She is not sexually active. She had a hysterectomy done years ago this was a complete hysterectomy for noncancerous reasons. Review of Systems Constitutional: Negative. Genitourinary: Positive for vaginal discharge. Allergies Allergen Reactions Nsaids Anaphylaxis, Hives and Itching Pt gets hives and itching from taking any NSAIDS Sulfa Antibiotics Diarrhea Other reaction(s): GI Upset Sulfamethoxazole-Trimethoprim Diarrhea and Nausea And Vomiting Outpatient Medications Prior to Visit Medication Sig Dispense Refill amLODIPine (Norvasc) 10 MG tablet Take 1 tablet (10 mg) by mouth daily. 90 tablet 1 atorvastatin (Lipitor) 40 MG tablet TAKE TWO BY MOUTH EVERY OTHER DAY ALTERNATING WITH ONE EVERY OTHER DAY 135 tablet 0 cholecalciferol (Vitamin D-3) 25 MCG (1000 UT) tablet Take 1,000 Units by mouth daily. clonazePAM (KlonoPIN) 0.5 MG tablet Take 0.5 mg by mouth in the morning and 0.5 mg in the evening. colesevelam (Welchol) 625 MG tablet Take 1,250 mg by mouth 2 times daily. Continuous Glucose Sensor (FreeStyle Hector 3 Plus Sensor) misc 1 Device every 15 days. 1 each 11 glimepiride (Amaryl) 4 MG tablet TAKE ONE BY MOUTH TWICE DAILY WITH MEALS 180 tablet 1 irbesartan (Avapro) 150 MG tablet Take 1 tablet (150 mg) by mouth daily. 90 tablet 1 linaGLIPtin (Tradjenta) 5 MG tablet Take 1 tablet (5 mg) by mouth daily. 90 tablet 1 metFORMIN (Glucophage) 1000 MG tablet Take 1 tablet (1,000 mg) by mouth in the morning and 1 tablet (1,000 mg) in the evening. Take with meals. 180 tablet 1 mirtazapine (Remeron) 30 MG tablet Take 45 mg by mouth. PARoxetine (Paxil) 20 MG tablet Take 20 mg by mouth 2 times daily. dapagliflozin (Farxiga) 10 MG tablet TAKE ONE TABLET (10 MG) BY MOUTH DAILY (WITH BREAKFAST). 90 tablet 0 No facility-administered medications prior to visit. Patient Active Problem List Diagnosis Hypoxia Personal history of noncompliance with medical treatment, presenting hazards to health Severe obesity (BMI 35.0-39.9) with comorbidity (HCC) Malaise and fatigue Type 2 diabetes mellitus without complication, without long-term current use of insulin ([facility]/HCC) (HCC) Esophageal reflux Episode of recurrent major depressive disorder (HCC) Current smoker Pain in joint, ankle and foot Hypercholesteremia Fatty liver Insomnia Abnormal TSH Colitis Hypertension Graves disease Mediastinal mass Steroid-induced hyperglycemia Pneumonia due to COVID-19 virus Chronic low back pain Vitamin D deficiency Major depressive disorder, recurrent severe without psychotic features (HCC) Past Medical History: Diagnosis Date Alimentary obesity 04/03/2016 Anxiety Asthma Chronic low back pain 04/03/2016 COPD exacerbation (HCC) 06/11/2020 Depression Fatty liver 02/06/2015 GERD (gastroesophageal reflux disease) H/O ovarian cystectomy History of LAVH Hx of blood clots Hyperglycemia Hyperlipidemia Hypertension Insomnia 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 Noncompliance Osteoarthritis Pulmonary embolism (HCC) Thyroid disease Tobacco abuse Type II or unspecified type diabetes mellitus without mention of complication, not stated as uncontrolled (HCC) Weakness Social History Tobacco Use Smoking status: Every Day Current packs/day: 0.50 Average packs/day: 0.5 packs/day for 40.0 years (20.0 ttl pk-yrs) Types: Cigarettes Smokeless tobacco: Never Substance Use Topics Alcohol use: No Past Surgical History: Procedure Laterality Date CATARACT EXTRACTION Left 2022 CATARACT EXTRACTION Right 11/2023 CHOLECYSTECTOMY COLONOSCOPY PLEURA BIOPSY 08/11/2021 VATs with thoracotomy resection of mediastinal mass TONSILLECTOMY (HISTORICAL) TOTAL ABDOMINAL HYSTERECTOMY Family History Problem Relation Name Age of Onset High Blood Pressure Father Arthritis Brother Hyperlipidemia Mother Diabetes Mother High Blood Pressure Mother Arthritis Mother Hyperlipidemia Father Health Maintenance Topic Date Due HIV Screening Never done MMR Vaccines (1 of 1 - Standard series) Never done Diabetes: Foot Exam Never done Diabetes: Dental Exam Never done Depression Monitoring Never done Hepatitis C Screening Never done Hepatitis B Vaccines (1 of 3 - 19+ 3-dose series) Never done Pneumococcal Vaccine: 50+ Years (1 of 2 - PCV) Never done Zoster Vaccines (1 of 2) Never done Mammogram 02/18/2021 Lung Cancer Screening 06/23/2022 DTaP/Tdap/Td Vaccines (2 - Td or Tdap) 12/04/2022 COVID-19 Vaccine ( season) Never done Diabetes: Retinopathy Screening 10/24/2024 Diabetes: Urine Albumin-Creatinine Ratio for Kidney Health 01/24/2025 Diabetes: Estimated Glomerular Filtration Rate for Kidney Health 07/24/2025 Lipid Panel 07/24/2025 Diabetes: Hemoglobin A1C 07/24/2025 Colorectal Cancer Screening 07/03/2029 RSV Immunization for Adults (1 - 1-dose 75+ series) 01/14/2040 Influenza Vaccine Completed RSV Immunization under 20 Months Aged Out HIB Vaccines Aged Out IPV Vaccines Aged Out Hepatitis A Vaccines Aged Out Meningococcal Vaccine Aged Out Rotavirus Vaccines Aged Out HPV Vaccines Aged Out Objective There were no vitals taken for this visit. Physical Exam Data Reviewed and Summarized Labs: Lab Results Component Value Date WBC 10.7 05/08/2024 HGB 13.1 05/08/2024 HCT 42.2 05/08/2024 PLT 424 (H) 05/08/2024 TSH 0.698 04/12/2023 Lab Results Component Value Date NA 138 07/24/2023 K 3.2 (L) 07/24/2023 CL 106 07/24/2023 CO2 24 07/24/2024 BUN 12 07/24/2024 CREATININE 0.71 07/24/2024 GLUCOSE 103 (H) 07/24/2024 CALCIUM 9.4 07/24/2024 PROT 7.0 07/24/2024 BILITOT 0.4 07/24/2024 ALKPHOS 107 07/24/2024 AST 15 07/24/2024 ALT 9 07/24/2024 AGRATIO 1.8 07/24/2024 GLOB 2.5 07/24/2024 @GLUCOSELAB@ Lab Results Component Value Date CHOL 202 (H) 04/12/2023 CHOL 200 (A) 05/04/2022 CHOL 182 01/19/2021 Lab Results Component Value Date TRIG 184 (H) 04/12/2023 TRIG 141 05/04/2022 TRIG 115 01/19/2021 Lab Results Component Value Date HDL 42 04/12/2023 HDL 47 05/04/2022 HDL 56 01/19/2021 Lab Results Component Value Date LDLCALC 123 (H) 04/12/2023 No results found for: VLDL Lab Results Component Value Date CHOLHDLRATIO 5 04/12/2023 CHOLHDLRATIO 4 05/04/2022 CHOLHDLRATIO 3 01/19/2021 Imaging/Testing: ECG 12 lead Sinus rhythm Compared to ECG 12/03/2021 14:02:50 No significant changes Electronically Signed On 07-25-2023 4:24:15 EST by Ilya Varner MD documented in this encounter [facility] 08-13-2024 Telephone encounter Note Noted [facility] 08-11-2024 Telephone encounter Note New order put in [facility] 08-10-2024 Telephone encounter Note Will need new orders with updated dx. Previous dx of F17.200 didn't pass medical necessity. You can use #F17.210 [facility] 07-30-2024 Telephone encounter Note Ok thank you [facility] 07-27-2024 Telephone encounter Note There is an order there from April do I need to create another order? [facility] 07-27-2024 Telephone encounter Note I was told by scheduling that previous orders for CT-Lung Screen doesn't pass medical necessity. We need new orders please [facility] 07-24-2024 History of Present illness Narrative Images from the original note were not included. [facility] - [address] [facility] [address] Dept: [phone] Dept Loc: [phone] Reason for Visit: Follow-up (Pt had flu vaccine already ) Assessment and Plan 1. Hypercholesteremia patient was advised to continue taking her low-fat diet and exercise Lipitor will check a liver function test 2. Type 2 diabetes mellitus without complication, without long-term current use of insulin (CMS/HCC) (HCC) we will see if her hector was covered. Patient to continue fark [employer] and Am[employer]. Reviewed last A1c stable. - Continuous Glucose Sensor (FreeStyle Hector 3 Plus Sensor) misc; 1 Device every 15 days., Starting Tue07/24/2024, Normal - Hemoglobin A1c - Lipid panel - Comprehensive metabolic panel 3. Major depressive disorder, recurrent severe without psychotic features (HCC) psychiatry is following 4. Current smoker CT scan was ordered. Patient did not follow through with this. I encouraged her to get the CT scan done. And to stop smoking. 5. HTN (hypertension), benign patient and I discussed continuing her Norvasc. current treatment plan is effective, no change in therapy, orders and follow up as documented in EMR, lab results reviewed with patient, repeat labs ordered prior to next appointment, reviewed compliance with lifestyle measures, reviewed diet, exercise and weight control, reviewed medications and side effects in detail Return visit in 3 months. Subjective HPI this is a 59-year-old female who has been seeing us for multiple medical reasons she is a type II diabetic. We tried a stable and get her hector covered as she does not have some difficulty checking her blood sugars. We discussed continuing the metformin to Tradjenta the glimepiride no hypoglycemic episodes we discussed seeing an eye doctor she is been watching her diet and exercising. She is under little stress. Has a history of high blood pressure no chest pain complaints no shortness of breath. However she had a CT lung screening that was ordered by me did not follow through with this and she did not get scheduled. I encouraged patient to get this test done. And to stop smoking Review of Systems Constitutional: Negative. Negative for activity change, appetite change and fever. HENT: Negative. Negative for congestion. Eyes: Negative. Negative for discharge. Respiratory: Negative. Negative for chest tightness. Cardiovascular: Negative. Gastrointestinal: Negative. Endocrine: Negative. Negative for cold intolerance. Genitourinary: Negative for difficulty urinating. Musculoskeletal: Negative. Neurological: Negative. Negative for dizziness, facial asymmetry and headaches. Hematological: Negative. Allergies Allergen Reactions Nsaids Anaphylaxis, Hives and Itching Pt gets hives and itching from taking any NSAIDS Sulfa Antibiotics Diarrhea Other reaction(s): GI Upset Sulfamethoxazole-Trimethoprim Diarrhea and Nausea And Vomiting Outpatient Medications Prior to Visit Medication Sig Dispense Refill amLODIPine (Norvasc) 10 MG tablet Take 1 tablet (10 mg) by mouth daily. 90 tablet 1 atorvastatin (Lipitor) 40 MG tablet TAKE TWO BY MOUTH EVERY OTHER DAY ALTERNATING WITH ONE EVERY OTHER DAY 135 tablet 0 cholecalciferol (Vitamin D-3) 25 MCG (1000 UT) tablet Take 1,000 Units by mouth daily. clonazePAM (KlonoPIN) 0.5 MG tablet Take 0.5 mg by mouth in the morning and 0.5 mg in the evening. colesevelam (Welchol) 625 MG tablet Take 1,250 mg by mouth 2 times daily. dapagliflozin (Farxiga) 10 MG tablet TAKE ONE TABLET (10 MG) BY MOUTH DAILY (WITH BREAKFAST). 90 tablet 0 glimepiride (Amaryl) 4 MG tablet TAKE ONE BY MOUTH TWICE DAILY WITH MEALS 180 tablet 1 irbesartan (Avapro) 150 MG tablet Take 1 tablet (150 mg) by mouth daily. 90 tablet 1 linaGLIPtin (Tradjenta) 5 MG tablet Take 1 tablet (5 mg) by mouth daily. 90 tablet 1 metFORMIN (Glucophage) 1000 MG tablet Take 1 tablet (1,000 mg) by mouth in the morning and 1 tablet (1,000 mg) in the evening. Take with meals. 180 tablet 1 mirtazapine (Remeron) 30 MG tablet Take 45 mg by mouth. PARoxetine (Paxil) 20 MG tablet Take 20 mg by mouth 2 times daily. Continuous Glucose Sensor (FreeStyle Hector 3 Plus Sensor) misc 1 Device every 15 days. 1 each 11 No facility-administered medications prior to visit. Patient Active Problem List Diagnosis Hypoxia Personal history of noncompliance with medical treatment, presenting hazards to health Severe obesity (BMI 35.0-39.9) with comorbidity (HCC) Malaise and fatigue Type 2 diabetes mellitus without complication, without long-term current use of insulin (CMS/HCC) (HCC) Esophageal reflux Episode of recurrent major depressive disorder (HCC) Current smoker Pain in joint, ankle and foot Hypercholesteremia Fatty liver Insomnia Abnormal TSH Colitis Hypertension Graves disease Mediastinal mass Steroid-induced hyperglycemia Pneumonia due to COVID-19 virus Chronic low back pain Vitamin D deficiency Major depressive disorder, recurrent severe without psychotic features (HCC) Past Medical History: Diagnosis Date Alimentary obesity 04/03/2016 Anxiety Asthma Chronic low back pain 04/03/2016 COPD exacerbation (HCC) 06/11/2020 Depression Fatty liver 02/06/2015 GERD (gastroesophageal reflux disease) H/O ovarian cystectomy History of LAVH Hx of blood clots Hyperglycemia Hyperlipidemia Hypertension Insomnia 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 Noncompliance Osteoarthritis Pulmonary embolism (HCC) Thyroid disease Tobacco abuse Type II or unspecified type diabetes mellitus without mention of complication, not stated as uncontrolled (HCC) Weakness Social History Tobacco Use Smoking status: Every Day Current packs/day: 0.50 Average packs/day: 0.5 packs/day for 40.0 years (20.0 ttl pk-yrs) Types: Cigarettes Smokeless tobacco: Never Substance Use Topics Alcohol use: No Past Surgical History: Procedure Laterality Date CATARACT EXTRACTION Left 2022 CATARACT EXTRACTION Right 11/2023 CHOLECYSTECTOMY COLONOSCOPY PLEURA BIOPSY 08/11/2021 VATs with thoracotomy resection of mediastinal mass TONSILLECTOMY (HISTORICAL) TOTAL ABDOMINAL HYSTERECTOMY Family History Problem Relation Name Age of Onset High Blood Pressure Father Arthritis Brother Hyperlipidemia Mother Diabetes Mother High Blood Pressure Mother Arthritis Mother Hyperlipidemia Father Health Maintenance Topic Date Due HIV Screening Never done MMR Vaccines (1 of 1 - Standard series) Never done Pneumococcal Vaccine: Pediatrics (0 to 5 Years) and At-Risk Patients (6 to 64 Years) (1 of 2 - PCV) Never done Diabetes: Foot Exam Never done Diabetes: Dental Exam Never done Depression Monitoring Never done Hepatitis C Screening Never done Hepatitis B Vaccines (1 of 3 - 19+ 3-dose series) Never done Zoster Vaccines (1 of 2) Never done Mammogram 02/18/2021 Lung Cancer Screening 06/23/2022 DTaP/Tdap/Td Vaccines (2 - Td or Tdap) 12/04/2022 COVID-19 Vaccine () Never done Diabetes: Retinopathy Screening 10/24/2024 Diabetes: Urine Albumin-Creatinine Ratio for Kidney Health 01/24/2025 Diabetes: Estimated Glomerular Filtration Rate for Kidney Health 05/08/2025 Lipid Panel 05/08/2025 Diabetes: Hemoglobin A1C 05/08/2025 Colorectal Cancer Screening 07/03/2029 RSV Immunization for Adults (1 - 1-dose 75+ series) 01/14/2040 Influenza Vaccine Completed RSV Immunization under 20 Months Aged Out HIB Vaccines Aged Out IPV Vaccines Aged Out Hepatitis A Vaccines Aged Out Meningococcal Vaccine Aged Out Rotavirus Vaccines Aged Out HPV Vaccines Aged Out Objective BP 110/68 Pulse 81 Temp 36.2 C (97.2 F) Ht 5' 5.1 (1.654 m) Wt 212 lb (96.2 kg) SpO2 94% BMI 35.17 kg/m Physical Exam Vitals and nursing note reviewed. Constitutional: Appearance: Normal appearance. HENT: Head: Normocephalic and atraumatic. Nose: No congestion or rhinorrhea. Mouth/Throat: Mouth: Mucous membranes are moist. Pharynx: Oropharynx is clear. No posterior oropharyngeal erythema. Eyes: Extraocular Movements: Extraocular movements intact. Conjunctiva/sclera: Conjunctivae normal. Pupils: Pupils are equal, round, and reactive to light. Cardiovascular: Pulses: Normal pulses. Heart sounds: Normal heart sounds. No murmur heard. Pulmonary: Effort: Pulmonary effort is normal. No respiratory distress. Breath sounds: Normal breath sounds. No wheezing. Abdominal: General: Abdomen is flat. Bowel sounds are normal. Palpations: Abdomen is soft. Tenderness: There is no abdominal tenderness. Musculoskeletal: General: No swelling. Cervical back: Normal range of motion. Skin: General: Skin is warm and dry. Neurological: General: No focal deficit present. Mental Status: She is alert and oriented to person, place, and time. Mental status is at baseline. Psychiatric: Mood and Affect: Mood normal. Data Reviewed and Summarized Labs: Lab Results Component Value Date WBC 10.7 05/08/2024 HGB 13.1 05/08/2024 HCT 42.2 05/08/2024 PLT 424 (H) 05/08/2024 TSH 0.698 04/12/2023 Lab Results Component Value Date NA 138 07/24/2023 K 3.2 (L) 07/24/2023 CL 106 07/24/2023 CO2 23 05/08/2024 BUN 10 05/08/2024 CREATININE 0.62 05/08/2024 GLUCOSE 102 05/08/2024 CALCIUM 9.7 05/08/2024 PROT 7.2 05/08/2024 BILITOT 0.4 05/08/2024 ALKPHOS 100 05/08/2024 AST 18 05/08/2024 ALT 11 05/08/2024 AGRATIO 1.6 05/08/2024 GLOB 2.8 05/08/2024 @GLUCOSELAB@ Lab Results Component Value Date CHOL 202 (H) 04/12/2023 CHOL 200 (A) 05/04/2022 CHOL 182 01/19/2021 Lab Results Component Value Date TRIG 184 (H) 04/12/2023 TRIG 141 05/04/2022 TRIG 115 01/19/2021 Lab Results Component Value Date HDL 42 04/12/2023 HDL 47 05/04/2022 HDL 56 01/19/2021 Lab Results Component Value Date LDLCALC 123 (H) 04/12/2023 No results found for: VLDL Lab Results Component Value Date CHOLHDLRATIO 5 04/12/2023 CHOLHDLRATIO 4 05/04/2022 CHOLHDLRATIO 3 01/19/2021 Imaging/Testing: ECG 12 lead Sinus rhythm Compared to ECG 12/03/2021 14:02:50 No significant changes Electronically Signed On 07-25-2023 4:24:15 EST by Ilya Varner MD documented in this encounter [facility] 05-08-2024 Telephone encounter Note Pt in office today requesting hector CGM, she does not currently use insulin daily. Will send order to pharmacy but will most likely require to [employer] pay as this will not meet guidelines. Order pended and sent to provider [facility] 05-08-2024 Miscellaneous Notes Pt in office today requesting hector CGM, she does not currently use insulin daily. Will send order to pharmacy but will most likely require to [employer] pay as this will not meet guidelines. Order pended and sent to provider documented in this encounter [facility] 05-08-2024 History of Present illness Narrative Images from the original note were not included. [facility] - [address] [facility] [address] Dept: [phone] Dept Loc: [phone] Reason for Visit: Follow-up and Flu Vaccine (Patient has agreed to receive influenza vaccine in the office today. /) Assessment and Plan 1. Hypercholesteremia patient will continue Lipitor 40 mg check a liver function test and lipid panel - Hemoglobin A1c - CBC auto differential - Comprehensive metabolic panel - Lipid panel - Magnesium 2. Type 2 diabetes mellitus without complication, without long-term current use of insulin ([facility]) ([facility]) patient has not been checking her blood sugars. Advised patient I do recommend at least checking blood sugars once a day however we will try to see if they freestyle hector sensor would be covered by her insurance. As she would benefit from checking her blood sugars. Tradjenta metformin and statin as well as fark [employer] all recommended weight loss diet and exercise - Hemoglobin A1c - CBC auto differential - Comprehensive metabolic panel - Lipid panel - Magnesium 3. Major depressive disorder, recurrent severe without psychotic features ([facility]) currently doing well on Paxil. - Hemoglobin A1c - CBC auto differential - Comprehensive metabolic panel - Lipid panel - Magnesium 4. Current smoker discussed stop smoking. Patient is aware of the deleterious effects of smoking CT lung screening ordered - CT lung screening low dose current treatment plan is effective, no change in therapy, orders and follow up as documented in EMR, lab results reviewed with patient, repeat labs ordered prior to next appointment, reviewed compliance with lifestyle measures, reviewed diet, exercise and weight control, reviewed medications and side effects in detail Return visit in 3 months. Subjective HPI this is a 59-year-old female patient with multiple medical problems main issue is her diabetes she admits she is not checking her blood sugars. I advised patient the importance of getting this done as well as seeing the eye doctor yearly she has not had any hypoglycemic episodes she has been taking her fark [employer]IG[employer] or her Amaryl her Tradjenta and her metformin. She and I discussed diet and exercise. She been going through a lot of stress right now. With her significant other. As well as how she is staying in. She feels the Paxil is working for her and it is of benefit still being on it Review of Systems Constitutional: Negative. Negative for activity change, appetite change and fever. HENT: Negative. Negative for congestion. Eyes: Negative. Negative for discharge. Respiratory: Negative. Negative for chest tightness. Cardiovascular: Negative. Gastrointestinal: Negative. Endocrine: Negative. Negative for cold intolerance. Genitourinary: Negative for difficulty urinating. Musculoskeletal: Negative. Neurological: Negative. Negative for dizziness, facial asymmetry and headaches. Hematological: Negative. Allergies Allergen Reactions Nsaids Anaphylaxis, Hives and Itching Pt gets hives and itching from taking any NSAIDS Sulfa Antibiotics Diarrhea Other reaction(s): GI Upset Sulfamethoxazole-Trimethoprim Diarrhea and Nausea And Vomiting Outpatient Medications Prior to Visit Medication Sig Dispense Refill amLODIPine (Norvasc) 10 MG tablet Take 1 tablet (10 mg) by mouth daily. 90 tablet 1 atorvastatin (Lipitor) 40 MG tablet TAKE TWO BY MOUTH EVERY OTHER DAY ALTERNATING WITH ONE EVERY OTHER DAY 135 tablet 0 cholecalciferol (Vitamin D-3) 25 MCG (1000 UT) tablet Take 1,000 Units by mouth daily. clonazePAM (KlonoPIN) 0.5 MG tablet Take 0.5 mg by mouth in the morning and 0.5 mg in the evening. colesevelam (Welchol) 625 MG tablet Take 1,250 mg by mouth 2 times daily. dapagliflozin (Farxiga) 10 MG tablet TAKE ONE TABLET (10 MG) BY MOUTH DAILY (WITH BREAKFAST). 90 tablet 0 glimepiride (Amaryl) 4 MG tablet TAKE ONE BY MOUTH TWICE DAILY WITH MEALS 180 tablet 1 irbesartan (Avapro) 150 MG tablet Take 1 tablet (150 mg) by mouth daily. 90 tablet 1 linaGLIPtin (Tradjenta) 5 MG tablet Take 1 tablet (5 mg) by mouth daily. 90 tablet 1 metFORMIN (Glucophage) 1000 MG tablet Take 1 tablet (1,000 mg) by mouth in the morning and 1 tablet (1,000 mg) in the evening. Take with meals. 180 tablet 1 mirtazapine (Remeron) 30 MG tablet Take 45 mg by mouth. PARoxetine (Paxil) 20 MG tablet Take 20 mg by mouth 2 times daily. magnesium oxide (Mag-Ox) 400 MG tablet Take 400 mg by mouth in the morning and 400 mg in the evening. No facility-administered medications prior to visit. Patient Active Problem List Diagnosis Hypoxia Personal history of noncompliance with medical treatment, presenting hazards to health Severe obesity (BMI 35.0-39.9) with comorbidity (HCC) Malaise and fatigue Type 2 diabetes mellitus without complication, without long-term current use of insulin ([facility]) (HCC) Esophageal reflux Episode of recurrent major depressive disorder (HCC) Current smoker Pain in joint, ankle and foot Hypercholesteremia Fatty liver Insomnia Abnormal TSH Colitis Hypertension Graves disease Mediastinal mass Steroid-induced hyperglycemia Pneumonia due to COVID-19 virus Chronic low back pain Vitamin D deficiency Major depressive disorder, recurrent severe without psychotic features (HCC) Past Medical History: Diagnosis Date Alimentary obesity 04/03/2016 Anxiety Asthma Chronic low back pain 04/03/2016 COPD exacerbation (HCC) 06/11/2020 Depression Fatty liver 02/06/2015 GERD (gastroesophageal reflux disease) H/O ovarian cystectomy History of LAVH Hx of blood clots Hyperglycemia Hyperlipidemia Hypertension Insomnia 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 Noncompliance Osteoarthritis Pulmonary embolism (HCC) Thyroid disease Tobacco abuse Type II or unspecified type diabetes mellitus without mention of complication, not stated as uncontrolled (HCC) Weakness Social History Tobacco Use Smoking status: Every Day Current packs/day: 0.50 Average packs/day: 0.5 packs/day for 40.0 years (20.0 ttl pk-yrs) Types: Cigarettes Smokeless tobacco: Never Substance Use Topics Alcohol use: No Past Surgical History: Procedure Laterality Date CATARACT EXTRACTION Left 2022 CATARACT EXTRACTION Right 11/2023 CHOLECYSTECTOMY COLONOSCOPY PLEURA BIOPSY 08/11/2021 VATs with thoracotomy resection of mediastinal mass TONSILLECTOMY (HISTORICAL) TOTAL ABDOMINAL HYSTERECTOMY Family History Problem Relation Name Age of Onset High Blood Pressure Father Arthritis Brother Hyperlipidemia Mother Diabetes Mother High Blood Pressure Mother Arthritis Mother Hyperlipidemia Father Health Maintenance Topic Date Due HIV Screening Never done MMR Vaccines (1 of 1 - Standard series) Never done Pneumococcal Vaccine: Pediatrics (0 to 5 Years) and At-Risk Patients (6 to 64 Years) (1 of 2 - PCV) Never done Diabetes: Foot Exam Never done Diabetes: Dental Exam Never done Depression Monitoring Never done Hepatitis C Screening Never done Hepatitis B Vaccines (1 of 3 - 19+ 3-dose series) Never done Hepatitis A Vaccines (1 of 2 - Risk 2-dose series) Never done Zoster Vaccines (1 of 2) Never done Mammogram 02/18/2021 Lung Cancer Screening 06/23/2022 DTaP/Tdap/Td Vaccines (2 - Td or Tdap) 12/04/2022 COVID-19 Vaccine ( - 2022- season) Never done Diabetes: Retinopathy Screening 10/24/2024 RSV Immunization aged 60 or older (1 - 1-dose 60+ series) 2025 Diabetes: Estimated Glomerular Filtration Rate for Kidney Health 01/24/2025 Diabetes: Urine Albumin-Creatinine Ratio for Kidney Health 01/24/2025 Lipid Panel 01/24/2025 Diabetes: Hemoglobin A1C 01/24/2025 Colorectal Cancer Screening 07/03/2029 Influenza Vaccine Completed RSV Immunization under 20 Months Aged Out HIB Vaccines Aged Out IPV Vaccines Aged Out Meningococcal Vaccine Aged Out Rotavirus Vaccines Aged Out HPV Vaccines Aged Out Objective BP 132/78 Pulse 78 Temp (!) 35.9 C (96.6 F) Ht 5' 5.1 (1.654 m) Wt 213 lb (96.6 kg) SpO2 94% BMI 35.34 kg/m Physical Exam Vitals and nursing note reviewed. Constitutional: Appearance: Normal appearance. HENT: Head: Normocephalic and atraumatic. Nose: No congestion or rhinorrhea. Mouth/Throat: Mouth: Mucous membranes are moist. Pharynx: Oropharynx is clear. No posterior oropharyngeal erythema. Eyes: Extraocular Movements: Extraocular movements intact. Conjunctiva/sclera: Conjunctivae normal. Pupils: Pupils are equal, round, and reactive to light. Cardiovascular: Pulses: Normal pulses. Heart sounds: Normal heart sounds. No murmur heard. Pulmonary: Effort: Pulmonary effort is normal. No respiratory distress. Breath sounds: Normal breath sounds. No wheezing. Abdominal: General: Abdomen is flat. Bowel sounds are normal. Palpations: Abdomen is soft. Tenderness: There is no abdominal tenderness. Musculoskeletal: General: No swelling. Cervical back: Normal range of motion. Skin: General: Skin is warm and dry. Neurological: General: No focal deficit present. Mental Status: She is alert and oriented to person, place, and time. Mental status is at baseline. Psychiatric: Mood and Affect: Mood normal. Data Reviewed and Summarized Labs: Lab Results Component Value Date WBC 15.3 (H) 01/25/2024 HGB 13.4 01/25/2024 HCT 43.2 01/25/2024 PLT 454 (H) 01/25/2024 TSH 0.698 04/12/2023 Lab Results Component Value Date NA 138 07/24/2023 K 3.2 (L) 07/24/2023 CL 106 07/24/2023 CO2 24 01/25/2024 BUN 12 01/25/2024 CREATININE 0.70 01/25/2024 GLUCOSE 99 01/25/2024 CALCIUM 10.0 01/25/2024 PROT 7.2 01/25/2024 BILITOT 0.4 01/25/2024 ALKPHOS 105 01/25/2024 AST 15 01/25/2024 ALT 11 01/25/2024 AGRATIO 1.7 01/25/2024 GLOB 2.7 01/25/2024 @GLUCOSELAB@ Lab Results Component Value Date CHOL 202 (H) 04/12/2023 CHOL 200 (A) 05/04/2022 CHOL 182 01/19/2021 Lab Results Component Value Date TRIG 184 (H) 04/12/2023 TRIG 141 05/04/2022 TRIG 115 01/19/2021 Lab Results Component Value Date HDL 42 04/12/2023 HDL 47 05/04/2022 HDL 56 01/19/2021 Lab Results Component Value Date LDLCALC 123 (H) 04/12/2023 No results found for: VLDL Lab Results Component Value Date CHOLHDLRATIO 5 04/12/2023 CHOLHDLRATIO 4 05/04/2022 CHOLHDLRATIO 3 01/19/2021 Imaging/Testing: ECG 12 lead Sinus rhythm Compared to ECG 12/03/2021 14:02:50 No significant changes Electronically Signed On 07-25-2023 4:24:15 EST by Ilya Varner MD documented in this encounter [facility] 05-08-2024 History of Present illness Narrative Images from the original note were not included. [facility] - [place] [address] [facility] [address] [facility] [address] Dept: [phone] Dept Loc: [phone] Reason for Visit: Follow-up and Flu Vaccine (Patient has agreed to receive influenza vaccine in the office today. /) Assessment and Plan 1. Hypercholesteremia patient will continue Lipitor 40 mg check a liver function test and lipid panel - Hemoglobin A1c - CBC auto differential - Comprehensive metabolic panel - Lipid panel - Magnesium 2. Type 2 diabetes mellitus without complication, without long-term current use of insulin ([facility]) ([facility]) patient has not been checking her blood sugars. Advised patient I do recommend at least checking blood sugars once a day however we will try to see if they freestyle hector sensor would be covered by her insurance. As she would benefit from checking her blood sugars. Tradjenta metformin and statin as well as fark [employer] all recommended weight loss diet and exercise - Hemoglobin A1c - CBC auto differential - Comprehensive metabolic panel - Lipid panel - Magnesium 3. Major depressive disorder, recurrent severe without psychotic features ([facility]) currently doing well on Paxil. - Hemoglobin A1c - CBC auto differential - Comprehensive metabolic panel - Lipid panel - Magnesium 4. Current smoker discussed stop smoking. Patient is aware of the deleterious effects of smoking CT lung screening ordered - CT lung screening low dose current treatment plan is effective, no change in therapy, orders and follow up as documented in EMR, lab results reviewed with patient, repeat labs ordered prior to next appointment, reviewed compliance with lifestyle measures, reviewed diet, exercise and weight control, reviewed medications and side effects in detail Return visit in 3 months. Subjective HPI this is a 59-year-old female patient with multiple medical problems main issue is her diabetes she admits she is not checking her blood sugars. I advised patient the importance of getting this done as well as seeing the eye doctor yearly she has not had any hypoglycemic episodes she has been taking her fark [employer]IG[employer] or her Amaryl her Tradjenta and her metformin. She and I discussed diet and exercise. She been going through a lot of stress right now. With her significant other. As well as how she is staying in. She feels the Paxil is working for her and it is of benefit still being on it Review of Systems Constitutional: Negative. Negative for activity change, appetite change and fever. HENT: Negative. Negative for congestion. Eyes: Negative. Negative for discharge. Respiratory: Negative. Negative for chest tightness. Cardiovascular: Negative. Gastrointestinal: Negative. Endocrine: Negative. Negative for cold intolerance. Genitourinary: Negative for difficulty urinating. Musculoskeletal: Negative. Neurological: Negative. Negative for dizziness, facial asymmetry and headaches. Hematological: Negative. Allergies Allergen Reactions Nsaids Anaphylaxis, Hives and Itching Pt gets hives and itching from taking any NSAIDS Sulfa Antibiotics Diarrhea Other reaction(s): GI Upset Sulfamethoxazole-Trimethoprim Diarrhea and Nausea And Vomiting Outpatient Medications Prior to Visit Medication Sig Dispense Refill amLODIPine (Norvasc) 10 MG tablet Take 1 tablet (10 mg) by mouth daily. 90 tablet 1 atorvastatin (Lipitor) 40 MG tablet TAKE TWO BY MOUTH EVERY OTHER DAY ALTERNATING WITH ONE EVERY OTHER DAY 135 tablet 0 cholecalciferol (Vitamin D-3) 25 MCG (1000 UT) tablet Take 1,000 Units by mouth daily. clonazePAM (KlonoPIN) 0.5 MG tablet Take 0.5 mg by mouth in the morning and 0.5 mg in the evening. colesevelam (Welchol) 625 MG tablet Take 1,250 mg by mouth 2 times daily. dapagliflozin (Farxiga) 10 MG tablet TAKE ONE TABLET (10 MG) BY MOUTH DAILY (WITH BREAKFAST). 90 tablet 0 glimepiride (Amaryl) 4 MG tablet TAKE ONE BY MOUTH TWICE DAILY WITH MEALS 180 tablet 1 irbesartan (Avapro) 150 MG tablet Take 1 tablet (150 mg) by mouth daily. 90 tablet 1 linaGLIPtin (Tradjenta) 5 MG tablet Take 1 tablet (5 mg) by mouth daily. 90 tablet 1 metFORMIN (Glucophage) 1000 MG tablet Take 1 tablet (1,000 mg) by mouth in the morning and 1 tablet (1,000 mg) in the evening. Take with meals. 180 tablet 1 mirtazapine (Remeron) 30 MG tablet Take 45 mg by mouth. PARoxetine (Paxil) 20 MG tablet Take 20 mg by mouth 2 times daily. magnesium oxide (Mag-Ox) 400 MG tablet Take 400 mg by mouth in the morning and 400 mg in the evening. No facility-administered medications prior to visit. Patient Active Problem List Diagnosis Hypoxia Personal history of noncompliance with medical treatment, presenting hazards to health Severe obesity (BMI 35.0-39.9) with comorbidity (HCC) Malaise and fatigue Type 2 diabetes mellitus without complication, without long-term current use of insulin (CMS/HCC) (HCC) Esophageal reflux Episode of recurrent major depressive disorder (HCC) Current smoker Pain in joint, ankle and foot Hypercholesteremia Fatty liver Insomnia Abnormal TSH Colitis Hypertension Graves disease Mediastinal mass Steroid-induced hyperglycemia Pneumonia due to COVID-19 virus Chronic low back pain Vitamin D deficiency Major depressive disorder, recurrent severe without psychotic features (HCC) Past Medical History: Diagnosis Date Alimentary obesity 04/03/2016 Anxiety Asthma Chronic low back pain 04/03/2016 COPD exacerbation (HCC) 06/11/2020 Depression Fatty liver 02/06/2015 GERD (gastroesophageal reflux disease) H/O ovarian cystectomy History of LAVH Hx of blood clots Hyperglycemia Hyperlipidemia Hypertension Insomnia 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 Noncompliance Osteoarthritis Pulmonary embolism (HCC) Thyroid disease Tobacco abuse Type II or unspecified type diabetes mellitus without mention of complication, not stated as uncontrolled (HCC) Weakness Social History Tobacco Use Smoking status: Every Day Current packs/day: 0.50 Average packs/day: 0.5 packs/day for 40.0 years (20.0 ttl pk-yrs) Types: Cigarettes Smokeless tobacco: Never Substance Use Topics Alcohol use: No Past Surgical History: Procedure Laterality Date CATARACT EXTRACTION Left 2022 CATARACT EXTRACTION Right 11/2023 CHOLECYSTECTOMY COLONOSCOPY PLEURA BIOPSY 08/11/2021 VATs with thoracotomy resection of mediastinal mass TONSILLECTOMY (HISTORICAL) TOTAL ABDOMINAL HYSTERECTOMY Family History Problem Relation Name Age of Onset High Blood Pressure Father Arthritis Brother Hyperlipidemia Mother Diabetes Mother High Blood Pressure Mother Arthritis Mother Hyperlipidemia Father Health Maintenance Topic Date Due HIV Screening Never done MMR Vaccines (1 of 1 - Standard series) Never done Pneumococcal Vaccine: Pediatrics (0 to 5 Years) and At-Risk Patients (6 to 64 Years) (1 of 2 - PCV) Never done Diabetes: Foot Exam Never done Diabetes: Dental Exam Never done Depression Monitoring Never done Hepatitis C Screening Never done Hepatitis B Vaccines (1 of 3 - 19+ 3-dose series) Never done Hepatitis A Vaccines (1 of 2 - Risk 2-dose series) Never done Zoster Vaccines (1 of 2) Never done Mammogram 02/18/2021 Lung Cancer Screening 06/23/2022 DTaP/Tdap/Td Vaccines (2 - Td or Tdap) 12/04/2022 COVID-19 Vaccine ( - 2022- season) Never done Diabetes: Retinopathy Screening 10/24/2024 RSV Immunization aged 60 or older (1 - 1-dose 60+ series) 2025 Diabetes: Estimated Glomerular Filtration Rate for Kidney Health 01/24/2025 Diabetes: Urine Albumin-Creatinine Ratio for Kidney Health 01/24/2025 Lipid Panel 01/24/2025 Diabetes: Hemoglobin A1C 01/24/2025 Colorectal Cancer Screening 07/03/2029 Influenza Vaccine Completed RSV Immunization under 20 Months Aged Out HIB Vaccines Aged Out IPV Vaccines Aged Out Meningococcal Vaccine Aged Out Rotavirus Vaccines Aged Out HPV Vaccines Aged Out Objective BP 132/78 Pulse 78 Temp (!) 35.9 C (96.6 F) Ht 5' 5.1 (1.654 m) Wt 213 lb (96.6 kg) SpO2 94% BMI 35.34 kg/m Physical Exam Vitals and nursing note reviewed. Constitutional: Appearance: Normal appearance. HENT: Head: Normocephalic and atraumatic. Nose: No congestion or rhinorrhea. Mouth/Throat: Mouth: Mucous membranes are moist. Pharynx: Oropharynx is clear. No posterior oropharyngeal erythema. Eyes: Extraocular Movements: Extraocular movements intact. Conjunctiva/sclera: Conjunctivae normal. Pupils: Pupils are equal, round, and reactive to light. Cardiovascular: Pulses: Normal pulses. Heart sounds: Normal heart sounds. No murmur heard. Pulmonary: Effort: Pulmonary effort is normal. No respiratory distress. Breath sounds: Normal breath sounds. No wheezing. Abdominal: General: Abdomen is flat. Bowel sounds are normal. Palpations: Abdomen is soft. Tenderness: There is no abdominal tenderness. Musculoskeletal: General: No swelling. Cervical back: Normal range of motion. Skin: General: Skin is warm and dry. Neurological: General: No focal deficit present. Mental Status: She is alert and oriented to person, place, and time. Mental status is at baseline. Psychiatric: Mood and Affect: Mood normal. Data Reviewed and Summarized Labs: Lab Results Component Value Date WBC 15.3 (H) 01/25/2024 HGB 13.4 01/25/2024 HCT 43.2 01/25/2024 PLT 454 (H) 01/25/2024 TSH 0.698 04/12/2023 Lab Results Component Value Date NA 138 07/24/2023 K 3.2 (L) 07/24/2023 CL 106 07/24/2023 CO2 24 01/25/2024 BUN 12 01/25/2024 CREATININE 0.70 01/25/2024 GLUCOSE 99 01/25/2024 CALCIUM 10.0 01/25/2024 PROT 7.2 01/25/2024 BILITOT 0.4 01/25/2024 ALKPHOS 105 01/25/2024 AST 15 01/25/2024 ALT 11 01/25/2024 AGRATIO 1.7 01/25/2024 GLOB 2.7 01/25/2024 @GLUCOSELAB@ Lab Results Component Value Date CHOL 202 (H) 04/12/2023 CHOL 200 (A) 05/04/2022 CHOL 182 01/19/2021 Lab Results Component Value Date TRIG 184 (H) 04/12/2023 TRIG 141 05/04/2022 TRIG 115 01/19/2021 Lab Results Component Value Date HDL 42 04/12/2023 HDL 47 05/04/2022 HDL 56 01/19/2021 Lab Results Component Value Date LDLCALC 123 (H) 04/12/2023 No results found for: VLDL Lab Results Component Value Date CHOLHDLRATIO 5 04/12/2023 CHOLHDLRATIO 4 05/04/2022 CHOLHDLRATIO 3 01/19/2021 Imaging/Testing: ECG 12 lead Sinus rhythm Compared to ECG 12/03/2021 14:02:50 No significant changes Electronically Signed On 07-25-2023 4:24:15 EST by Ilya Varner MD documented in this encounter [facility] 05-08-2024 Miscellaneous Notes Addended by: JOSIE URRUTIA on: 11/08/2024 02:22 PM Modules accepted: Orders documented in this encounter [facility] 05-08-2024 Note Addended by: JOSIE URRUTIA on: 11/08/2024 02:22 PM Modules accepted: Orders [facility] 04-19-2024 Telephone encounter Note Recent Visits Date Type Provider Dept 01/25/24 Office Visit Lena Varner MD [facility] 10/18/23 Office Visit Lena Varner MD [facility] 07/12/23 Office Visit Hari Casanova PA-C [facility] Showing recent visits within past 365 days and meeting all other requirements Future Appointments Date Type Provider Dept 05/08/24 Appointment Lena Varner MD [facility] Showing future appointments within next 90 days and meeting all other requirements Requested Prescriptions Pending Prescriptions Disp Refills glimepiride (Amaryl) 4 MG tablet [Pharmacy Med Name: Glimepiride Oral Tablet 4 MG 4 MG Tablet] 180 tablet 1 Sig: TAKE ONE BY MOUTH TWICE DAILY WITH MEALS Provider: Lena Varner MD Verified pharmacy: yes Verified day(s) supplied: yes Verified refill(s) needed (previous prescription showing no refills in chart): Yes Have you received any controlled medications from any other provider? N/A Overdue for visit: No If yes - patient scheduled? N/A Most recent labs completed in chart? Yes Diabetes: Lab Results Component Value Date HGBA1C 7.8 (H) 01/25/2024 MICROALBCREA 18.2 04/12/2023 BUNCREATININ SEE NOTE: 01/25/2024 K 3.2 (L) 07/24/2023 NA 138 07/24/2023 LDL 125 (A) 05/04/2022 HDL 42 04/12/2023 CHOLESTEROLT 149 01/25/2024 TRIG 184 (H) 04/12/2023 [facility] 04-19-2024 Miscellaneous Notes Recent Visits Date Type Provider Dept 01/25/24 Office Visit Lena Varner MD [facility] 10/18/23 Office Visit Lena Varner MD [facility] 07/12/23 Office Visit Hari Casanova PA-C [facility] Showing recent visits within past 365 days and meeting all other requirements Future Appointments Date Type Provider Dept 05/08/24 Appointment Lena Varner MD [facility] Showing future appointments within next 90 days and meeting all other requirements Requested Prescriptions Pending Prescriptions Disp Refills glimepiride (Amaryl) 4 MG tablet [Pharmacy Med Name: Glimepiride Oral Tablet 4 MG 4 MG Tablet] 180 tablet 1 Sig: TAKE ONE BY MOUTH TWICE DAILY WITH MEALS Provider: Lena Varner MD Verified pharmacy: yes Verified day(s) supplied: yes Verified refill(s) needed (previous prescription showing no refills in chart): Yes Have you received any controlled medications from any other provider? N/A Overdue for visit: No If yes - patient scheduled? N/A Most recent labs completed in chart? Yes Diabetes: Lab Results Component Value Date HGBA1C 7.8 (H) 01/25/2024 MICROALBCREA 18.2 04/12/2023 BUNCREATININ SEE NOTE: 01/25/2024 K 3.2 (L) 07/24/2023 NA 138 07/24/2023 LDL 125 (A) 05/04/2022 HDL 42 04/12/2023 CHOLESTEROLT 149 01/25/2024 TRIG 184 (H) 04/12/2023 documented in this encounter [facility] 03-13-2024 Instructions Anali Pickard PA-C - 03/13/2024 12:19 PM EDT [facility] PATIENT INFO BLADDER INFECTION OVERVIEW Bladder infections are one of the most common infections, causing symptoms of burning with urination and needing to urinate frequently. A bladder infection is a type of urinary tract infection (UTI). Bladder infections are more common is women than men. Most women have an uncomplicated bladder infection that is easily treated with a short course of antibiotics. In men, bladder infections may also affect the prostate gland, and a longer course of treatment may be needed. BLADDER INFECTION CAUSES The urinary tract includes the kidneys (which filter urine), ureters (the tube that carries urine from the kidneys to the bladder), the bladder (which stores urine), and urethra (the tube that carries urine out of the bladder). Bacteria do not normally live in these areas. However, bacteria normally live close to the urethra in women and men who are not circumcised. Bladder infections occur when bacteria travel up the urethra into the bladder. Factors that increase the risk of developing a bladder infection include: Vaginal sex Use of spermicides History of past bladder infections Diabetes In men, not being circumcised or having anal sex increase the risk of bladder infections. BLADDER INFECTION SYMPTOMS The typical symptoms of a bladder infection include: Pain or burning when urinating Frequent need to urinate Urgent need to urinate Blood in the urine Fever, back pain, nausea, or vomiting are not common symptoms of a bladder infection, but can occur in people with a kidney infection (pyelonephritis). If you have these symptoms, you should call your doctor or nurse immediately. Is it a bladder infection or something else? -- Burning with urination can also occur in people with vaginitis (eg, yeast infection) or urethritis (inflammation of the urethra). For this reason, it is important to call your healthcare provider before assuming you have a bladder infection. BLADDER INFECTION DIAGNOSIS Simple bladder infections are usually diagnosed based upon your symptoms alone. However, most patients, especially those who have bladder infection symptoms for the first time, should see a healthcare provider for urine testing. Urine culture -- A urine culture is a test that uses a sample of urine to try and grow bacteria in a laboratory. It usually requires about 48 hours to get results. However, a urine culture is not always required to diagnose a bladder infection. Urine culture is often recommended if: You have never had a bladder infection before You have symptoms that are not typical for bladder infection You have had resistant bladder infections before You have frequent bladder infections You do not begin to feel better within 24 to 48 hours after starting antibiotics You are BLADDER INFECTION TREATMENT Bladder infection -- In young, healthy adolescents and adults with a bladder infection, the usual treatment includes a three to seven day course of antibiotics. The typical drugs chosen are: trimethoprim-sulfamethoxazole (Bactrim ), nitrofurantoin (Macrobid ), ciprofloxacin (Cipro ) or levofloxacin (Levaquin ). In men, the infection may involve your prostate gland and treatment is usually given for at least 7 days. Your symptoms should begin to resolve within one day after starting treatment. It is important to take the full course of antibiotics to completely eliminate the infection. If your symptoms persist for more than two or three days after starting treatment, call your healthcare provider. If needed, you can take a prescription medication that numbs the bladder and urethra (phenazopyridine [Pyridium ]) to reduce the burning pain of some UTIs. A similar medication is available without a prescription (eg, Uristat). Both medications change the color of the urine (usually blue or orange) and can interfere with laboratory testing. You should not take these medications for more than 48 hours due to the risk of side effects. These medications do not treat the infection and must be taken along with an antibiotic. Some providers recommend drinking more fluids while treating bladder infections to help flush bacteria from the bladder. Others believe that drinking more fluids may dilute the antibiotic in the bladder and make the medication less effective. No studies have been performed to address this issue. There are also no good studies on the effectiveness of cranberry juice for treating a bladder infection; we do not recommend using cranberry juice to treat bladder infections. Follow-up care -- Follow-up testing is not needed in healthy, young men or women with a bladder infection if symptoms resolve. women are usually asked to have a repeat urine culture one to two weeks after treatment has ended to make sure the bacteria are no longer in the urine. RECURRENT BLADDER INFECTIONS Bladder infections versus other causes -- Some adults, especially women, develop bladder infections frequently. In this case, it is important to confirm that your symptoms (eg, pain or burning, frequency, and urgency) are caused by a bladder infection. Symptoms are usually similar from one infection to another. The best way to confirm an infection is to have a urine culture. If your urine culture is negative for infection, other causes of pain, burning, and frequency should be investigated. There is no reason to take antibiotics if your urine culture is negative. Need for further testing -- If you continue to develop bladder infections, you may require further testing. If you continue to notice blood in your urine after your bladder infection has cleared, you should have further testing. Preventing recurrent UTIs -- Women with recurrent urinary tract infections may be advised to take steps to prevent bladder infections, including one or more of the following: Changes in control -- Women who develop frequent bladder infections and use spermicides, particularly those who also use a diaphragm, may be encouraged to use an alternate method of control. Cranberry products -- Taking cranberry juice or cranberry tablets has been promoted as one way to help prevent frequent bladder infections. However, this has not been proven. Drinking more fluid and urinating after intercourse -- Although studies have not proven that drinking more fluids or urinating soon after intercourse can prevent infection, some healthcare providers recommend these measures since they are not harmful. Drinking more fluid may help to wash out bacteria that enter the bladder. Postmenopausal women -- Postmenopausal women who develop recurrent bladder infections may benefit from using vaginal estrogen. Vaginal estrogen is available in a flexible ring that is worn in the vagina for three months (eg, Estring ), a small tablet (Vagifem ), or a cream (eg, Premarin or Estrace ). Vaginal estrogen is discussed in more detail in a separate topic review. Antibiotics -- A preventive antibiotic treatment may be recommended if you repeatedly develop bladder infections and have not responded to other preventive measures. Antibiotics are highly effective in preventing recurrent bladder infections and can be taken in several different ways. Preventive antibiotic -- You can take a low dose of an antibiotic once per day or three times per week for six months to several years. Antibiotics following intercourse -- In women who develop urinary tract infections after sex, taking a single low dose antibiotic after intercourse can help to prevent bladder infections. Self-treatment -- A plan to begin antibiotics at the first sign of a bladder infection may be recommended in some situations. Before starting this regimen, it is important that you have had testing (urine cultures) to confirm that your symptoms are caused by a bladder infection; some people have symptoms of a bladder infection but do not actually have an infection. documented in this encounter [facility] 03-13-2024 Note HNO ID: [id number] Author: ANALI PICKARD PA-C Service: ? Author Type: Physician Bean Viner Type: Progress Notes Filed: 03/13/2024 12:50 Note Text: Deanna Dorman is a 59 year old female with a past medical history of hypertension, GERD, diabetes, Graves' disease, and depression who presents [facility] today for evaluation of dysuria, urinary frequency, and urinary urgency that began this morning. No fevers, sweats, chills, nausea, vomiting, abdominal pain, or flank pain. Review of Systems Constitutional: Negative for chills, diaphoresis and fever. Gastrointestinal: Negative for abdominal pain, constipation, diarrhea, nausea and vomiting. Genitourinary: Positive for dysuria, frequency and urgency. Negative for difficulty urinating and flank pain. Skin: Negative for rash and wound. All other systems reviewed and are negative. Objective BP 126/70 (BP Site: Left Arm, BP Position: Sitting, BP Cuff Size: Regular Adult) Pulse 92 Temp 36.7 ?C (98.1 ?F) (Right Tympanic) Resp 18 Ht 165.1 cm (5' 5) Wt 99.3 kg (219 lb 0.4 oz) SpO2 94% BMI 36.45 kg/m? Physical Exam Vitals reviewed. Constitutional: General: She is not in acute distress. Appearance: Normal appearance. She is normal weight. She is not ill-appearing or toxic-appearing. Comments: The patient appears to be non-toxic, in no acute distress, and resting comfortably on the table. HENT: Head: Normocephalic and atraumatic. Eyes: Extraocular Movements: Extraocular movements intact. Cardiovascular: Rate and Rhythm: Normal rate and regular rhythm. Heart sounds: Normal heart sounds. No murmur heard. No friction rub. No gallop. Pulmonary: Effort: Pulmonary effort is normal. No respiratory distress. Breath sounds: Normal breath sounds. No wheezing. Abdominal: Tenderness: There is no right CVA tenderness or left CVA tenderness. Musculoskeletal: General: Normal range of motion. Cervical back: Normal range of motion. Skin: General: Skin is warm and dry. Findings: No erythema or rash. Neurological: General: No focal deficit present. Mental Status: She is alert and oriented to person, place, and time. Mental status is at baseline. Psychiatric: Mood and Affect: Mood normal. Behavior: Behavior normal. Thought Content: Thought content normal. Assessment and Plan UA consistent with urinary tract infection. Urine culture obtained. Results discussed with patient. Patient counseled regarding suspected diagnosis and given prescription for Cipro. Advised to follow-up with primary care as needed for any new or worsening symptoms. ASSESSMENT/PLAN: 1. Leukocytes in urine - ICD9: 791.7, ICD10: R82.998 (primary diagnosis) - URINE CULTURE - CIPROFLOXACIN 500 MG TABLET 2. Urinary urgency - ICD9: 788.63, ICD10: R39.15 - URINE CULTURE - UA DIP, URINE (POC) 3. Sensation of pressure in bladder area - ICD9: 596.89, ICD10: R39.89 - URINE CULTURE - UA DIP, URINE (POC) 4. Dysuria - ICD9: 788.1, ICD10: R30.0 - URINE CULTURE - UA DIP, URINE (POC) Medical Decision Making: Problems: Low: Acute, uncomplicated illness or injury Risk: Minimal: Minimal risk from testing/treatment Moderate: Drug management Medical Decision Making Level: 3 - Low I spent a total of 20 minutes on the date of the service which included preparing to see the patient, [id number] patient care, completing clinical documentation, performing a medically appropriate examination, counseling and educating the patient/family/caregiver, and ordering medications, tests, or procedures. Anali Pickard PA-C [facility] 03-13-2024 History of Present illness Narrative Subjective Thea Dorman is a 59 year old female with a past medical history of hypertension, GERD, diabetes, Graves' disease, and depression who presents [facility] today for evaluation of dysuria, urinary frequency, and urinary urgency that began this morning. No fevers, sweats, chills, nausea, vomiting, abdominal pain, or flank pain. Review of Systems Constitutional: Negative for chills, diaphoresis and fever. Gastrointestinal: Negative for abdominal pain, constipation, diarrhea, nausea and vomiting. Genitourinary: Positive for dysuria, frequency and urgency. Negative for difficulty urinating and flank pain. Skin: Negative for rash and wound. All other systems reviewed and are negative. Objective BP 126/70 (BP Site: Left Arm, BP Position: Sitting, BP Cuff Size: Regular Adult) Pulse 92 Temp 36.7 C (98.1 F) (Right Tympanic) Resp 18 Ht 165.1 cm (5' 5) Wt 99.3 kg (219 lb 0.4 oz) SpO2 94% BMI 36.45 kg/m Physical Exam Vitals reviewed. Constitutional: General: She is not in acute distress. Appearance: Normal appearance. She is normal weight. She is not ill-appearing or toxic-appearing. Comments: The patient appears to be non-toxic, in no acute distress, and resting comfortably on the table. HENT: Head: Normocephalic and atraumatic. Eyes: Extraocular Movements: Extraocular movements intact. Cardiovascular: Rate and Rhythm: Normal rate and regular rhythm. Heart sounds: Normal heart sounds. No murmur heard. No friction rub. No gallop. Pulmonary: Effort: Pulmonary effort is normal. No respiratory distress. Breath sounds: Normal breath sounds. No wheezing. Abdominal: Tenderness: There is no right CVA tenderness or left CVA tenderness. Musculoskeletal: General: Normal range of motion. Cervical back: Normal range of motion. Skin: General: Skin is warm and dry. Findings: No erythema or rash. Neurological: General: No focal deficit present. Mental Status: She is alert and oriented to person, place, and time. Mental status is at baseline. Psychiatric: Mood and Affect: Mood normal. Behavior: Behavior normal. Thought Content: Thought content normal. Assessment and Plan UA consistent with urinary tract infection. Urine culture obtained. Results discussed with patient. Patient counseled regarding suspected diagnosis and given prescription for Cipro. Advised to follow-up with primary care as needed for any new or worsening symptoms. ASSESSMENT/PLAN: 1. Leukocytes in urine - ICD9: 791.7, ICD10: R82.998 (primary diagnosis) - URINE CULTURE - CIPROFLOXACIN 500 MG TABLET 2. Urinary urgency - ICD9: 788.63, ICD10: R39.15 - URINE CULTURE - UA DIP, URINE (POC) 3. Sensation of pressure in bladder area - ICD9: 596.89, ICD10: R39.89 - URINE CULTURE - UA DIP, URINE (POC) 4. Dysuria - ICD9: 788.1, ICD10: R30.0 - URINE CULTURE - UA DIP, URINE (POC) Medical Decision Making: Problems: Low: Acute, uncomplicated illness or injury Risk: Minimal: Minimal risk from testing/treatment Moderate: Drug management Medical Decision Making Level: 3 - Low I spent a total of 20 minutes on the date of the service which included preparing to see the patient, [id number] patient care, completing clinical documentation, performing a medically appropriate examination, counseling and educating the patient/family/caregiver, and ordering medications, tests, or procedures. Anali Pickard PA-C documented in this encounter [facility] 03-06-2024 Telephone encounter Note Last OV:01/25/24 Scheduled:05/08/24 [facility] 03-06-2024 Miscellaneous Notes Last OV:01/25/24 Scheduled:05/08/24 Ordering provider: Lena Varner Date of last office visit: 01/25/24 Date of next office visit: 05/08/24 Updated/Validated preferred pharmacy: Yes [facility] Patient instructed to contact the pharmacy prior to picking up the medication: N/A (1) Medication name: metFORMIN (Glucophage) Medication dosage: 1,000 mg (Miligrams Monthly quantity needed: 60 How many day supply requestin days Medication route: oral (PO) Medication administration time(s): Take 1 tablet (1,000 mg) by mouth in the morning and 1 tablet (1,000 mg) in the evening. Take with meals. If taking medication PRN, reason for taking medication: N/A If this is a controlled substance do you receive this or any other controlled medication from any other doctor or facility: No Date of last refill (see medication tab): 08/17/23 (2) Medication name: linaGLIPtin (Tradjenta) Medication dosage: 5 mg (Miligrams Monthly quantity needed: 30 How many day supply requestin days Medication route: oral (PO) Medication administration time(s): daily If taking medication PRN, reason for taking medication: N/A If this is a controlled substance do you receive this or any other controlled medication from any other doctor or facility: No Date of last refill (see medication tab): 07/12/23 documented in this encounter [facility] 03-06-2024 Telephone encounter Note Ordering provider: Lena Varner Date of last office visit: 01/25/24 Date of next office visit: 05/08/24 Updated/Validated preferred pharmacy: Yes [facility] Patient instructed to contact the pharmacy prior to picking up the medication: N/A (1) Medication name: metFORMIN (Glucophage) Medication dosage: 1,000 mg (Miligrams Monthly quantity needed: 60 How many day supply requestin days Medication route: oral (PO) Medication administration time(s): Take 1 tablet (1,000 mg) by mouth in the morning and 1 tablet (1,000 mg) in the evening. Take with meals. If taking medication PRN, reason for taking medication: N/A If this is a controlled substance do you receive this or any other controlled medication from any other doctor or facility: No Date of last refill (see medication tab): 08/17/23 (2) Medication name: linaGLIPtin (Tradjenta) Medication dosage: 5 mg (Miligrams Monthly quantity needed: 30 How many day supply requestin days Medication route: oral (PO) Medication administration time(s): daily If taking medication PRN, reason for taking medication: N/A If this is a controlled substance do you receive this or any other controlled medication from any other doctor or facility: No Date of last refill (see medication tab): 07/12/23 [facility] 02-28-2024 Telephone encounter Note Patient called stating the pharm did not receive the new scripts. Please resend to pharm [facility] 02-27-2024 Note Addended by: Emiliana LANGE on: 02/27/2024 01:45 PM Modules accepted: Orders [facility] 02-27-2024 Note Addended by: Emiliana LANGE on: 02/27/2024 01:45 PM Modules accepted: Orders [facility] 02-27-2024 Miscellaneous Notes Addended by: KAREN LANGE on: 02/27/2024 01:45 PM Modules accepted: Orders Ordering provider: Edilberto Date of last office visit: 01/25/24 Date of next office visit: 05/08/24 Updated/Validated preferred pharmacy: Yes [facility] - [address] [phone] Patient instructed to contact the pharmacy prior to picking up the medication: Yes (1) Medication name: amLODIPine (Norvasc) 10 MG tablet Medication dosage: 10 mg (Miligrams Monthly quantity needed: 90 How many day supply requestin days Medication route: oral (PO) Medication administration time(s): daily If taking medication PRN, reason for taking medication: N/A If this is a controlled substance do you receive this or any other controlled medication from any other doctor or facility: N/A Date of last refill (see medication tab): 08/17/23 (2) Medication name: irbesartan (Avapro) 150 MG tablet Medication dosage: 150 mg (Miligrams Monthly quantity needed: 90 How many day supply requestin days Medication route: oral (PO) Medication administration time(s): daily If taking medication PRN, reason for taking medication: N/A If this is a controlled substance do you receive this or any other controlled medication from any other doctor or facility: N/A Date of last refill (see medication tab): 08/17/23 documented in this encounter [facility] 02-26-2024 Telephone encounter Note Ordering provider: Edilberto Date of last office visit: 01/25/24 Date of next office visit: 05/08/24 Updated/Validated preferred pharmacy: Yes [facility] - [facility] [address] [facility] [phone] Patient instructed to contact the pharmacy prior to picking up the medication: Yes (1) Medication name: amLODIPine (Norvasc) 10 MG tablet Medication dosage: 10 mg (Miligrams Monthly quantity needed: 90 How many day supply requestin days Medication route: oral (PO) Medication administration time(s): daily If taking medication PRN, reason for taking medication: N/A If this is a controlled substance do you receive this or any other controlled medication from any other doctor or facility: N/A Date of last refill (see medication tab): 08/17/23 (2) Medication name: irbesartan (Avapro) 150 MG tablet Medication dosage: 150 mg (Miligrams Monthly quantity needed: 90 How many day supply requestin days Medication route: oral (PO) Medication administration time(s): daily If taking medication PRN, reason for taking medication: N/A If this is a controlled substance do you receive this or any other controlled medication from any other doctor or facility: N/A Date of last refill (see medication tab): 08/17/23 [facility] 02-26-2024 Miscellaneous Notes Ordering provider: Edilberto Date of last office visit: 01/25/24 Date of next office visit: 05/08/24 Updated/Validated preferred pharmacy: Yes [facility]- Prescription Services - [address] [phone] Patient instructed to contact the pharmacy prior to picking up the medication: Yes (1) Medication name: amLODIPine (Norvasc) 10 MG tablet Medication dosage: 10 mg (Miligrams Monthly quantity needed: 90 How many day supply requestin days Medication route: oral (PO) Medication administration time(s): daily If taking medication PRN, reason for taking medication: N/A If this is a controlled substance do you receive this or any other controlled medication from any other doctor or facility: N/A Date of last refill (see medication tab): 08/17/23 (2) Medication name: irbesartan (Avapro) 150 MG tablet Medication dosage: 150 mg (Miligrams Monthly quantity needed: 90 How many day supply requestin days Medication route: oral (PO) Medication administration time(s): daily If taking medication PRN, reason for taking medication: N/A If this is a controlled substance do you receive this or any other controlled medication from any other doctor or facility: N/A Date of last refill (see medication tab): 08/17/23 documented in this encounter [facility] 01-25-2024 History of Present illness Narrative Images from the original note were not included. [facility] [address] [facility] [id number] Dept: [phone] Dept Loc: [phone] Reason for Visit: Follow-up Assessment and Plan 1. Type 2 diabetes mellitus without complication, without continue with FA Rx IgA. As well as metformin and Tradjenta. Patient stated that the insulin was too expensive and never started it. Will check an A1c again today here. Will see also if she qualifies for a hector. Long-term current use of insulin ([facility] ([facility]) - Hemoglobin A1c - CBC auto differential - Comprehensive metabolic panel - Lipid panel - Microalbumin / creatinine, urine ratio 2. Hypercholesteremia chronic stable continue atorvastatin - Hemoglobin A1c - CBC auto differential - Comprehensive metabolic panel - Lipid panel - Microalbumin / creatinine, urine ratio current treatment plan is effective, no change in therapy, orders and follow up as documented in EMR, lab results reviewed with patient, repeat labs ordered prior to next appointment, reviewed compliance with lifestyle measures, reviewed diet, exercise and weight control, reviewed medications and side effects in detail Return visit in 3 months. Subjective HPI is a 59-year-old female patient with hypertension hyperlipidemia diabetes she states she is not checking her blood sugars I advised patient she should check at least once a day fasting we will try to see if she qualifies for the hector. She has not had any hypoglycemic episodes on the medication she is taking she is denying any chest pain shortness of breath headache blurred vision she otherwise feels in good health. Review of Systems Constitutional: Negative. Negative for activity change, appetite change and fever. HENT: Negative. Negative for congestion. Eyes: Negative. Negative for discharge. Respiratory: Negative. Negative for chest tightness. Cardiovascular: Negative. Gastrointestinal: Negative. Endocrine: Negative. Negative for cold intolerance. Genitourinary: Negative for difficulty urinating. Musculoskeletal: Negative. Neurological: Negative. Negative for dizziness, facial asymmetry and headaches. Hematological: Negative. Allergies Allergen Reactions Nsaids Anaphylaxis, Hives and Itching Pt gets hives and itching from taking any NSAIDS Sulfa Antibiotics Diarrhea Other reaction(s): GI Upset Sulfamethoxazole-Trimethoprim Diarrhea and Nausea And Vomiting Outpatient Medications Prior to Visit Medication Sig Dispense Refill amLODIPine (Norvasc) 10 MG tablet Take 1 tablet (10 mg) by mouth daily. 90 tablet 1 atorvastatin (Lipitor) 40 MG tablet TAKE TWO BY MOUTH EVERY OTHER DAY ALTERNATING WITH ONE EVERY OTHER DAY 135 tablet 0 cholecalciferol (Vitamin D-3) 25 MCG (1000 UT) tablet Take 1,000 Units by mouth daily. clonazePAM (KlonoPIN) 0.5 MG tablet Take 0.5 mg by mouth in the morning and 0.5 mg in the evening. colesevelam (Welchol) 625 MG tablet Take 1,250 mg by mouth 2 times daily. dapagliflozin (Farxiga) 10 MG tablet Take 1 tablet (10 mg) by mouth daily (with breakfast). 90 tablet 1 glimepiride (Amaryl) 4 MG tablet TAKE ONE BY MOUTH TWICE DAILY WITH MEALS 180 tablet 1 irbesartan (Avapro) 150 MG tablet Take 1 tablet (150 mg) by mouth daily. 90 tablet 1 linaGLIPtin (Tradjenta) 5 MG tablet Take 1 tablet (5 mg) by mouth daily. 90 tablet 1 magnesium oxide (Mag-Ox) 400 MG tablet Take 400 mg by mouth in the morning and 400 mg in the evening. metFORMIN (Glucophage) 1000 MG tablet Take 1 tablet (1,000 mg) by mouth in the morning and 1 tablet (1,000 mg) in the evening. Take with meals. 180 tablet 1 mirtazapine (Remeron) 30 MG tablet Take 45 mg by mouth. PARoxetine (Paxil) 20 MG tablet Take 20 mg by mouth 2 times daily. insulin glargine (Lantus) 100 UNIT/ML injection Inject 10 Units under the skin Nightly. 3 mL 1 No facility-administered medications prior to visit. Patient Active Problem List Diagnosis Hypoxia Personal history of noncompliance with medical treatment, presenting hazards to health Severe obesity (BMI 35.0-39.9) with comorbidity (HCC) Malaise and fatigue Type 2 diabetes mellitus without complication, without long-term current use of insulin (CMS/HCC) (HCC) Esophageal reflux Episode of recurrent major depressive disorder (HCC) Current smoker Pain in joint, ankle and foot Hypercholesteremia Fatty liver Insomnia Abnormal TSH Colitis Hypertension Graves disease Mediastinal mass Steroid-induced hyperglycemia Pneumonia due to COVID-19 virus Chronic low back pain Vitamin D deficiency Major depressive disorder, recurrent severe without psychotic features (HCC) Past Medical History: Diagnosis Date Alimentary obesity 04/03/2016 Anxiety Asthma Chronic low back pain 04/03/2016 COPD exacerbation (HCC) 06/11/2020 Depression Fatty liver 02/06/2015 GERD (gastroesophageal reflux disease) H/O ovarian cystectomy History of LAVH Hx of blood clots Hyperglycemia Hyperlipidemia Hypertension Insomnia 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 Noncompliance Osteoarthritis Pulmonary embolism (HCC) Thyroid disease Tobacco abuse Type II or unspecified type diabetes mellitus without mention of complication, not stated as uncontrolled (HCC) Weakness Social History Tobacco Use Smoking status: Every Day Packs/day: 0.50 Years: 40.00 Additional pack years: 0.00 Total pack years: 20.00 Types: Cigarettes Smokeless tobacco: Never Substance Use Topics Alcohol use: No Past Surgical History: Procedure Laterality Date CATARACT EXTRACTION Left 2022 CATARACT EXTRACTION Right 11/2023 CHOLECYSTECTOMY COLONOSCOPY PLEURA BIOPSY 08/11/2021 VATs with thoracotomy resection of mediastinal mass TONSILLECTOMY (HISTORICAL) TOTAL ABDOMINAL HYSTERECTOMY Family History Problem Relation Name Age of Onset High Blood Pressure Father Arthritis Brother Hyperlipidemia Mother Diabetes Mother High Blood Pressure Mother Arthritis Mother Hyperlipidemia Father Health Maintenance Topic Date Due HIV Screening Never done MMR Vaccines (1 of 1 - Standard series) Never done Pneumococcal Vaccine: Pediatrics (0 to 5 Years) and At-Risk Patients (6 to 64 Years) (1 of 2 - PCV) Never done Diabetes: Foot Exam Never done Diabetes: Dental Exam Never done Depression Monitoring Never done Hepatitis C Screening Never done Hepatitis B Vaccines (1 of 3 - 19+ 3-dose series) Never done Hepatitis A Vaccines (1 of 2 - Risk 2-dose series) Never done Zoster Vaccines (1 of 2) Never done Mammogram 02/18/2021 Lung Cancer Screening 06/23/2022 DTaP/Tdap/Td Vaccines (2 - Td or Tdap) 12/04/2022 COVID-19 Vaccine ( - 2022- season) Never done Diabetes: Urine Albumin-Creatinine Ratio for Kidney Health 04/12/2024 Diabetes: Estimated Glomerular Filtration Rate for Kidney Health 10/17/2024 Lipid Panel 10/17/2024 Diabetes: Hemoglobin A1C 10/17/2024 Diabetes: Retinopathy Screening 10/24/2024 RSV Immunization aged 60 or older (1 - 1-dose 60+ series) 2025 Colorectal Cancer Screening 07/03/2029 Influenza Vaccine Completed RSV Immunization under 20 Months Aged Out HIB Vaccines Aged Out IPV Vaccines Aged Out Meningococcal Vaccine Aged Out Rotavirus Vaccines Aged Out HPV Vaccines Aged Out Objective BP 134/78 Pulse 99 Temp 37.1 C (98.8 F) Ht 5' 5.1 (1.654 m) Wt 225 lb (102 kg) SpO2 95% BMI 37.33 kg/m Physical Exam Vitals and nursing note reviewed. Constitutional: Appearance: Normal appearance. HENT: Head: Normocephalic and atraumatic. Nose: No congestion or rhinorrhea. Mouth/Throat: Mouth: Mucous membranes are moist. Pharynx: Oropharynx is clear. No posterior oropharyngeal erythema. Eyes: Extraocular Movements: Extraocular movements intact. Conjunctiva/sclera: Conjunctivae normal. Pupils: Pupils are equal, round, and reactive to light. Cardiovascular: Pulses: Normal pulses. Heart sounds: Normal heart sounds. No murmur heard. Pulmonary: Effort: Pulmonary effort is normal. No respiratory distress. Breath sounds: Normal breath sounds. No wheezing. Abdominal: General: Abdomen is flat. Bowel sounds are normal. Palpations: Abdomen is soft. Tenderness: There is no abdominal tenderness. Musculoskeletal: General: No swelling. Cervical back: Normal range of motion. Skin: General: Skin is warm and dry. Neurological: General: No focal deficit present. Mental Status: She is alert and oriented to person, place, and time. Mental status is at baseline. Psychiatric: Mood and Affect: Mood normal. Data Reviewed and Summarized Labs: Lab Results Component Value Date WBC 11.9 (H) 10/18/2023 HGB 13.5 10/18/2023 HCT 42.7 10/18/2023 PLT 378 10/18/2023 TSH 0.698 04/12/2023 Lab Results Component Value Date NA 138 07/24/2023 K 3.2 (L) 07/24/2023 CL 106 07/24/2023 CO2 23 10/18/2023 BUN 11 10/18/2023 CREATININE 0.60 10/18/2023 GLUCOSE 103 (H) 10/18/2023 CALCIUM 9.5 10/18/2023 PROT 7.1 10/18/2023 BILITOT 0.4 10/18/2023 ALKPHOS 121 10/18/2023 AST 16 10/18/2023 ALT 11 10/18/2023 AGRATIO 1.8 10/18/2023 GLOB 2.5 10/18/2023 @GLUCOSELAB@ Lab Results Component Value Date CHOL 202 (H) 04/12/2023 CHOL 200 (A) 05/04/2022 CHOL 182 01/19/2021 Lab Results Component Value Date TRIG 184 (H) 04/12/2023 TRIG 141 05/04/2022 TRIG 115 01/19/2021 Lab Results Component Value Date HDL 42 04/12/2023 HDL 47 05/04/2022 HDL 56 01/19/2021 Lab Results Component Value Date LDLCALC 123 (H) 04/12/2023 No results found for: VLDL Lab Results Component Value Date CHOLHDLRATIO 5 04/12/2023 CHOLHDLRATIO 4 05/04/2022 CHOLHDLRATIO 3 01/19/2021 Imaging/Testing: ECG 12 lead Sinus rhythm Compared to ECG 12/03/2021 14:02:50 No significant changes Electronically Signed On 07-25-2023 4:24:15 EST by Ilya Varner MD documented in this encounter [facility] 11-15-2023 Telephone encounter Note Name of caller: Philly Contact phone number: [phone] Relationship to Patient: Patient Provider: Dr. Varner Practice: [facility] Chief Complaint/Reason for Call: pt states her prescription refill of atorvastatin (Lipitor) 40 MG tablet was sent to wrong pharmacy. Please resend to [facility] - [place] Listed in pts chart. Please advise Best time of day caller can be reached: Any Patient advised that office/PCP has 24-48 business hours to return their call: No [facility] 11-15-2023 Miscellaneous Notes Name of caller: Philly Contact phone number: [phone] Relationship to Patient: Patient Provider: Dr. Varner Practice: [facility] Chief Complaint/Reason for Call: pt states her prescription refill of atorvastatin (Lipitor) 40 MG tablet was sent to wrong pharmacy. Please resend to [facility] - [place] Listed in pts chart. Please advise Best time of day caller can be reached: Any Patient advised that office/PCP has 24-48 business hours to return their call: No documented in this encounter [facility] 11-14-2023 Miscellaneous Notes Patient called stating the pharm did not receive the new scripts. Please resend to pharm Addended by: KAREN LANGE on: 02/27/2024 01:45 PM Modules accepted: Orders Ordering provider: Edilberto Date of last office visit: 01/25/24 Date of next office visit: 05/08/24 Updated/Validated preferred pharmacy: Yes [facility] - [place] - [address] [phone] Patient instructed to contact the pharmacy prior to picking up the medication: Yes (1) Medication name: amLODIPine (Norvasc) 10 MG tablet Medication dosage: 10 mg (Miligrams Monthly quantity needed: 90 How many day supply requestin days Medication route: oral (PO) Medication administration time(s): daily If taking medication PRN, reason for taking medication: N/A If this is a controlled substance do you receive this or any other controlled medication from any other doctor or facility: N/A Date of last refill (see medication tab): 08/17/23 (2) Medication name: irbesartan (Avapro) 150 MG tablet Medication dosage: 150 mg (Miligrams Monthly quantity needed: 90 How many day supply requestin days Medication route: oral (PO) Medication administration time(s): daily If taking medication PRN, reason for taking medication: N/A If this is a controlled substance do you receive this or any other controlled medication from any other doctor or facility: N/A Date of last refill (see medication tab): 08/17/23 documented in this encounter [facility] 11-14-2023 Telephone encounter Note Date of last office visit: 10/18/23 Date of next office visit: 01/25/24 [facility] 11-14-2023 Miscellaneous Notes Date of last office visit: 10/18/23 Date of next office visit: 01/25/24 Medication name: atorvastatin (Lipitor) 40 MG tablet Medication dosage: 40 mg (Miligrams Monthly quantity needed: 90 How many day supply requestin days Medication route: oral (PO) Medication administration time(s): na If taking medication PRN, reason for taking medication: N/A If this is a controlled substance do you receive this or any other controlled medication from any other doctor or facility: N/A Ordering provider: Dr. Varner Date of last office visit: 10/18/23 Date of next office visit: 01/25/24 Date of last refill: (see medication tab): 07/12/23 Updated/Validated preferred pharmacy: Yes Patient instructed to contact the pharmacy prior to picking up the medication: Yes documented in this encounter [facility] 11-14-2023 Telephone encounter Note Medication name: atorvastatin (Lipitor) 40 MG tablet Medication dosage: 40 mg (Miligrams Monthly quantity needed: 90 How many day supply requestin days Medication route: oral (PO) Medication administration time(s): na If taking medication PRN, reason for taking medication: N/A If this is a controlled substance do you receive this or any other controlled medication from any other doctor or facility: N/A Ordering provider: Dr. Varner Date of last office visit: 10/18/23 Date of next office visit: 01/25/24 Date of last refill: (see medication tab): 07/12/23 Updated/Validated preferred pharmacy: Yes Patient instructed to contact the pharmacy prior to picking up the medication: Yes [facility] 08-16-2023 Telephone encounter Note Please send to different pharmacy Rx loaded for correct pharmacy. [facility] 08-16-2023 Miscellaneous Notes Please send to different pharmacy Rx loaded for correct pharmacy. Name of caller: Philly Contact phone number: [phone] Relationship to Patient: patient Provider: GREGG Casanova Practice: [facility] Chief Complaint/Reason for Call: Patient states her prescriptions went to the wrong pharmacy and ask if they can be resent over to [facility]. Please advise Best time of day caller can be reached: Any Patient advised that office/PCP has 24-48 business hours to return their call: No documented in this encounter [facility] 08-16-2023 Telephone encounter Note Name of caller: Philly Contact phone number: [phone] Relationship to Patient: patient Provider: GREGG Casanova Practice: [facility] Chief Complaint/Reason for Call: Patient states her prescriptions went to the wrong pharmacy and ask if they can be resent over to [facility]. Please advise Best time of day caller can be reached: Any Patient advised that office/PCP has 24-48 business hours to return their call: No [facility] 08-16-2023 Telephone encounter Note Ordering provider: Dr Salinas Date of last office visit: 07/12/23 Date of next office visit: 10/18/23 Updated/Validated preferred pharmacy: Yes Patient instructed to contact the pharmacy prior to picking up the medication: Yes (1) Medication name: amLODIPine (Norvasc Medication dosage: 10mg Monthly quantity needed: 30 How many day supply requestin days Medication route: oral (PO) Medication administration time(s): daily If taking medication PRN, reason for taking medication: N/A If this is a controlled substance do you receive this or any other controlled medication from any other doctor or facility: N/A Date of last refill (see medication tab): 11/16/22 (2) Medication name: irbesartan (Avapro) Medication dosage: 150mg Monthly quantity needed: 30 How many day supply requestin days Medication route: oral (PO) Medication administration time(s): daily If taking medication PRN, reason for taking medication: N/A If this is a controlled substance do you receive this or any other controlled medication from any other doctor or facility: N/A Date of last refill (see medication tab): 11/16/22 (3) Medication name: metFORMIN (Glucophage Medication dosage: 1000mg Monthly quantity needed: 60 How many day supply requestin days Medication route: oral (PO) Medication administration time(s): 2 times a day (BID) If taking medication PRN, reason for taking medication: N/A If this is a controlled substance do you receive this or any other controlled medication from any other doctor or facility: N/A Date of last refill (see medication tab): 03/24/23 [facility] [employer] [facility] 08-16-2023 Miscellaneous Notes Ordering provider: Dr Salinas Date of last office visit: 07/12/23 Date of next office visit: 10/18/23 Updated/Validated preferred pharmacy: Yes Patient instructed to contact the pharmacy prior to picking up the medication: Yes (1) Medication name: amLODIPine (Norvasc Medication dosage: 10mg Monthly quantity needed: 30 How many day supply requestin days Medication route: oral (PO) Medication administration time(s): daily If taking medication PRN, reason for taking medication: N/A If this is a controlled substance do you receive this or any other controlled medication from any other doctor or facility: N/A Date of last refill (see medication tab): 11/16/22 (2) Medication name: irbesartan (Avapro) Medication dosage: 150mg Monthly quantity needed: 30 How many day supply requestin days Medication route: oral (PO) Medication administration time(s): daily If taking medication PRN, reason for taking medication: N/A If this is a controlled substance do you receive this or any other controlled medication from any other doctor or facility: N/A Date of last refill (see medication tab): 11/16/22 (3) Medication name: metFORMIN (Glucophage Medication dosage: 1000mg Monthly quantity needed: 60 How many day supply requestin days Medication route: oral (PO) Medication administration time(s): 2 times a day (BID) If taking medication PRN, reason for taking medication: N/A If this is a controlled substance do you receive this or any other controlled medication from any other doctor or facility: N/A Date of last refill (see medication tab): 03/24/23 documented in this encounter [facility] 07-24-2023 Hospital Discharge instructions JOE Matamoros CNP - 07/24/2023 4:43 PM EST You do have a small hiatal hernia, I have placed name of the surgeon on there you could follow-up with as an outpatient, sometimes those hernias can become symptomatic and you can get bad reflux and some pain so I would recommend also seeing Dr. Parrish in the office. The following attachments cannot be sent through Care Everywhere.Hiatal Hernia Discharge Instructions ([place])Acid Reflux, Adult and Adolescent ED ([place])Abdominal Pain, Adult ED ([place])documented in this encounter [facility] 07-24-2023 Emergency department Note EMERGENCY DEPARTMENT ENCOUNTER Pt Name: Philly Dorman Birthdate 1965 Date of evaluation: 07/24/2023 ED Provider: JOE Matamoros CNP I have evaluated this patient on my own, per my scope of practice with an attending physician available for consultation. CHIEF COMPLAINT Chief Complaint Patient presents with Abdominal Pain Pt. States she has been having severe abdominal pain since . States she had a colonoscopy completed at [facility] in June without answers to the root of the pain. States she cannot handle the pain anymore. No relief with Zofran and bentyl at home. Endorses intermittent coffee ground emesis. States her stools have been green in color consistently. HISTORY OF PRESENT ILLNESS (Location/Symptom, Timing/Onset, Context/Setting, Quality, Duration, Modifying Factors, Severity) Note limiting factors. I wore appropriate PPE for the entirety of this encounter. HPI Philly Dorman is a 58 y.o. who presents to the emergency department with chief complaint of having abdominal pain since . Patient states she was at [facility] in June and she states they did a colonoscopy and checked her stool and checked a bunch of tests and no one can tell her why she is having pain throughout her upper abdomen. She complains of prior appendectomy and cholecystectomy states sometimes she has some bilious green emesis in her diarrhea states the pain seems to get worse after she eats. She denies history of inflammatory bowel disease or any other complaints. Nursing Notes were reviewed. Limitations to history: None Outside historians: None REVIEW OF SYSTEMS Review of Systems Constitutional: Negative for activity change, appetite change, chills and fever. HENT: Negative for congestion, nosebleeds, sinus pain and trouble swallowing. Eyes: Negative for pain and visual disturbance. Respiratory: Negative for cough, chest tightness and shortness of breath. Cardiovascular: Negative for chest pain. Gastrointestinal: Positive for abdominal pain and diarrhea. Negative for nausea and vomiting. Genitourinary: Negative for dysuria, hematuria, pelvic pain, vaginal bleeding, vaginal discharge and vaginal pain. Musculoskeletal: Negative for arthralgias, back pain and myalgias. Skin: Negative for rash and wound. Neurological: Negative for syncope, weakness, light-headedness and headaches. Hematological: Negative for adenopathy. Psychiatric/Behavioral: Negative for agitation and confusion. All other systems reviewed and are negative. Pertinent positives and negatives as per HPI. 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 Noncompliance Osteoarthritis Pulmonary embolism (HCC) Thyroid disease Tobacco abuse Type II or unspecified type diabetes mellitus without mention of complication, not stated as uncontrolled (HCC) Weakness SURGICAL HISTORY Past Surgical History: Procedure Laterality Date CATARACT EXTRACTION Left 2022 CHOLECYSTECTOMY COLONOSCOPY PLEURA BIOPSY 08/11/2021 VATs with thoracotomy resection of mediastinal mass TONSILLECTOMY (HISTORICAL) TOTAL ABDOMINAL HYSTERECTOMY CURRENT MEDICATIONS Previous Medications AMLODIPINE (NORVASC) 10 MG TABLET Take 1 tablet (10 mg) by mouth daily. ATORVASTATIN (LIPITOR) 40 MG TABLET TAKE TWO BY MOUTH EVERY OTHER DAY ALTERNATING WITH ONE EVERY OTHER DAY CHOLECALCIFEROL (VITAMIN D-3) 25 MCG (1000 UT) TABLET Take 1,000 Units by mouth daily. CLONAZEPAM (KLONOPIN) 0.5 MG TABLET Take 0.5 mg by mouth in the morning and 0.5 mg in the evening. DAPAGLIFLOZIN (FARXIGA) 10 MG Take 1 tablet (10 mg) by mouth daily (with breakfast). GLIMEPIRIDE (AMARYL) 4 MG TABLET TAKE ONE BY MOUTH TWICE DAILY WITH MEALS IRBESARTAN (AVAPRO) 150 MG TABLET Take 1 tablet (150 mg) by mouth daily. LINAGLIPTIN (TRADJENTA) 5 MG TABLET Take 1 tablet (5 mg) by mouth daily. METFORMIN (GLUCOPHAGE) 1000 MG TABLET Take 1 tablet (1,000 mg) by mouth in the morning and 1 tablet (1,000 mg) in the evening. Take with meals. MIRTAZAPINE (REMERON) 30 MG TABLET Take 45 mg by mouth. PAROXETINE (PAXIL) 20 MG TABLET Take 20 mg by mouth 2 times daily. TIRZEPATIDE (MOUNJARO) 2.5 MG/0.5ML SOLUTION PEN-INJECTOR Inject 2.5 mg under the skin 1 (one) time per week for 28 days. ALLERGIES Nsaids, Sulfa antibiotics, and Sulfamethoxazole-trimethoprim FAMILY HISTORY Family History Problem Relation Name Age of Onset High Blood Pressure Father Arthritis Brother Hyperlipidemia Mother Diabetes Mother High Blood Pressure Mother Arthritis Mother Hyperlipidemia Father SOCIAL HISTORY Social History Socioeconomic History Marital status: Tobacco Use Smoking status: Every Day Packs/day: .5 Types: Cigarettes Smokeless tobacco: Never Vaping Use Vaping Use: Never used Substance and Sexual Activity Alcohol use: No Drug use: No Social History Narrative , 1 child, daughter, 35, no grandkids,smoker, 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 SCREENINGS [place] Coma Scale Best Eye Response: Spontaneous Best Verbal Response: Oriented Best Motor Response: Follows commands [place] Coma Scale Score: 15 PHYSICAL EXAM ED Triage Vitals [07/24/23 1305] Temp Heart Rate Resp BP 37.3 C (99.1 F) 80 20 138/85 SpO2 Temp Source Heart Rate Source Patient Position 95 % Temporal Monitor -- BP Location FiO2 (%) -- -- Physical Exam Vitals and nursing note reviewed. Constitutional: General: She is not in acute distress. Appearance: Normal appearance. She is obese. She is not ill-appearing or toxic-appearing. HENT: Head: Normocephalic and atraumatic. Right Ear: External ear normal. Left Ear: External ear normal. Mouth/Throat: Mouth: Mucous membranes are moist. Pharynx: Oropharynx is clear. Eyes: Extraocular Movements: Extraocular movements intact. Conjunctiva/sclera: Conjunctivae normal. Pupils: Pupils are equal, round, and reactive to light. Cardiovascular: Rate and Rhythm: Normal rate and regular rhythm. Pulses: Normal pulses. Heart sounds: Normal heart sounds. No murmur heard. Abdominal: Comments: The abdomen is soft and nondistended, there is tenderness throughout the upper abdomen without guarding or rebound tenderness, bowel sounds are normal. Musculoskeletal: General: No swelling, tenderness, deformity or signs of injury. Normal range of motion. Cervical back: Normal range of motion and neck supple. No rigidity or tenderness. Lymphadenopathy: Cervical: No cervical adenopathy. Skin: General: Skin is warm and dry. Capillary Refill: Capillary refill takes less than 2 seconds. Coloration: Skin is not jaundiced or pale. Findings: No bruising or erythema. Neurological: General: No focal deficit present. Mental Status: She is alert and oriented to person, place, and time. Mental status is at baseline. Cranial Nerves: No cranial nerve deficit. Sensory: No sensory deficit. Psychiatric: Mood and Affect: Mood normal. DIAGNOSTIC RESULTS Procedures/EKG: EKG was reviewed by myself. Physician EKG interpretation can be found in [facility] RADIOLOGY (Per Emergency Physician): Interpretation per the Radiologist below, if available at the time of this note: CT abdomen pelvis w contrast Final Result No acute abnormality within the abdomen/pelvis. Small sliding hiatal hernia. Chronic minimal left-sided hydronephrosis. Report Dictated on Electronically Signed By: Skylar Orellana MD Electronically Signed Date/Time: 07/24/2023 4:21 PM EST ED BEDSIDE ULTRASOUND: Performed by ED Physician - none LABS: Labs Reviewed COMPREHENSIVE METABOLIC PANEL - Abnormal Result Value SODIUM 138 POTASSIUM 3.2 (*) CHLORIDE 106 CARBON DIOXIDE 24 ANION GAP 9 UREA NITROGEN 15 CREATININE 0.49 (*) GLUCOSE 140 (*) CALCIUM 9.5 AST (SGOT) 20 ALT 16 ALKALINE PHOSPHATASE 128 (*) ALBUMIN 4.2 BILIRUBIN, TOTAL 0.3 TOTAL PROTEIN 7.4 eGFR >90.0 CBC (HEMOGRAM) - Abnormal Auto WBC 14.8 (*) RBC 5.13 Hemoglobin 13.0 Hematocrit 40.4 MCV 78.7 (*) MCH 25.2 (*) MCHC 32.1 RDW 19.7 (*) Platelets 361 MPV 7.9 LIPASE - Normal LIPASE 83 MAGNESIUM - Normal MAGNESIUM 1.6 TROPONIN, WITH SERIAL REFLEX - Normal TROPONIN I <0.012 Narrative: Patients with high levels of Biotin oral intake (ie >5 mg/day) may have falsely decreased Troponin levels. COMPLETE URINALYSIS WITH REFLEX TO CULTURE Narrative: The following orders were created for panel order Urinalysis complete with reflex to Culture. Procedure Abnormality Status --------- ------ Complete Urinalysis[[id number]] Please view results for these tests on the individual orders. COMPLETE URINALYSIS TROPONIN I All other labs were within normal range or not returned as of this dictation. EMERGENCY DEPARTMENT COURSE and DIFFERENTIAL DIAGNOSIS/MDM: Vitals: Vitals: 07/24/23 1305 07/24/23 1306 07/24/23 1636 BP: 138/85 124/61 Pulse: 80 63 Resp: 20 15 Temp: 37.3 C (99.1 F) 36.8 C (98.2 F) TempSrc: Temporal Temporal SpO2: 95% 95% 94% Diagnoses as of 07/24/23 1646 Epigastric pain Gastroesophageal reflux disease, unspecified whether esophagitis present Hiatal hernia The patient presented with chief complaint of with chief complaint of having abdominal pain since [place]. Patient states she was at [facility] in June and she states they did a colonoscopy and checked her stool and checked a bunch of tests and no one can tell her why she is having pain throughout her upper abdomen. She complains of prior appendectomy and cholecystectomy states sometimes she has some bilious green emesis in her diarrhea states the pain seems to get worse after she eats. She denies history of inflammatory bowel disease or any other complaints.. The differential diagnosis associated with this patient's presentation includes GERD, gastritis, peptic ulcer disease, colitis. Our workup consisted of ordering/reviewing: CBC, CMP, lipase, urinalysis. Diagnostic tests considered but not performed: None To aid in management, I performed an independent interpretation of EKG(s) EKG per my interpretation shows sinus rhythm with a rate of [address] elevation or depression with normal intervals. I also reviewed external records from [facility] [place] in [place], patient was admitted she had colonoscopy with a polyp removal, she also had a negative C. difficile PCR, stool cryptosporidium, fecal lactoferrin and enteric bacterial pathogen panel was all negative. She had iron deficiency anemia and was given iron IV. . I discussed their care with none. Consideration for escalation of care with: Admission/observation however patient does not have any hospitalized will issue right now she does have a hiatal hernia and I will give her follow-up with surgery in regards to that she can follow-up with her money order clerk we will switch her to Protonix twice a day and Carafate, I encouraged her to return if she worsens she will be discharged home in stable condition. The patient will be Discharged. Patient is in agreement with this plan. Medications sodium chloride 0.9 % infusion (125 mL/hr IntraVENous New Bag 07/24/23 1111) pantoprazole (ProtoNix) EC tablet 40 mg (has no administration in time range) aluminum & magnesium hydroxide-simethicone (Mylanta) 200-200-20 MG/5ML oral suspension 20 mL (has no administration in time range) morphine injection 4 mg (4 mg IntraVENous Given 07/24/23 1443) ondansetron (Zofran) injection 4 mg (4 mg IntraVENous Given 07/24/23 1442) iopamidol (Isovue-370) 76 % injection 75 mL (75 mL IntraVENous Given 07/24/23 1532) REVAL: CRITICAL CARE TIME None CONSULTS: None PROCEDURES: Unless otherwise noted below, none Procedures Patients symptoms are consistent with sepsis, severe sepsis, or septic shock (If yes use .sepsiscoremeasure): no FINAL IMPRESSION 1. Epigastric pain 2. Gastroesophageal reflux disease, unspecified whether esophagitis present 3. Hiatal hernia DISPOSITION Discharge 07/24/2023 04:42:34 PM PATIENT REFERRED TO: Your GI doctor Call in 1 day Binh Parrish[address] [place] [id number] regarding your hiatal hernia DISCHARGE MEDICATIONS: New Prescriptions PANTOPRAZOLE (PROTONIX) 40 MG EC TABLET Take 1 tablet (40 mg) by mouth 2 times daily. Do not crush, chew, or split. SUCRALFATE (CARAFATE) 1 GM/10ML SUSPENSION Take 10 mL (1 g) by mouth 3 times daily. (Comment: Please note this report has been produced using speech recognition software and may contain errors related to that system including errors in grammar, punctuation, and spelling, as well as words and phrases that may be inappropriate. If there are any questions or concerns please feel free to contact the dictating provider for clarification.) JOE Matamoros CNP (electronically signed) Emergency Medicine Provider JOE Matamoros CNP 07/24/23 2607 documented in this encounter [facility] 07-24-2023 Physician Emergency department Note EMERGENCY DEPARTMENT ENCOUNTER Pt Name: Philly Dorman Birthdate 1965 Date of evaluation: 07/24/2023 ED Provider: JOE Matamoros CNP I have evaluated this patient on my own, per my scope of practice with an attending physician available for consultation. CHIEF COMPLAINT Chief Complaint Patient presents with Abdominal Pain Pt. States she has been having severe abdominal pain since . States she had a colonoscopy completed at [facility] in June without answers to the root of the pain. States she cannot handle the pain anymore. No relief with Zofran and bentyl at home. Endorses intermittent coffee ground emesis. States her stools have been green in color consistently. HISTORY OF PRESENT ILLNESS (Location/Symptom, Timing/Onset, Context/Setting, Quality, Duration, Modifying Factors, Severity) Note limiting factors. I wore appropriate PPE for the entirety of this encounter. HPI Philly Dorman is a 58 y.o. who presents to the emergency department with chief complaint of having abdominal pain since . Patient states she was at [facility] in June and she states they did a colonoscopy and checked her stool and checked a bunch of tests and no one can tell her why she is having pain throughout her upper abdomen. She complains of prior appendectomy and cholecystectomy states sometimes she has some bilious green emesis in her diarrhea states the pain seems to get worse after she eats. She denies history of inflammatory bowel disease or any other complaints. Nursing Notes were reviewed. Limitations to history: None Outside historians: None REVIEW OF SYSTEMS Review of Systems Constitutional: Negative for activity change, appetite change, chills and fever. HENT: Negative for congestion, nosebleeds, sinus pain and trouble swallowing. Eyes: Negative for pain and visual disturbance. Respiratory: Negative for cough, chest tightness and shortness of breath. Cardiovascular: Negative for chest pain. Gastrointestinal: Positive for abdominal pain and diarrhea. Negative for nausea and vomiting. Genitourinary: Negative for dysuria, hematuria, pelvic pain, vaginal bleeding, vaginal discharge and vaginal pain. Musculoskeletal: Negative for arthralgias, back pain and myalgias. Skin: Negative for rash and wound. Neurological: Negative for syncope, weakness, light-headedness and headaches. Hematological: Negative for adenopathy. Psychiatric/Behavioral: Negative for agitation and confusion. All other systems reviewed and are negative. Pertinent positives and negatives as per HPI. PAST MEDICAL HISTORY Past Medical History: Diagnosis Date Alimentary obesity 04/03/2016 Anxiety Asthma Chronic low back pain 04/03/2016 COPD exacerbation (HCC) 06/11/2020 Depression Fatty liver 02/06/2015 GERD (gastroesophageal reflux disease) H/O ovarian cystectomy History of [facility] Hx of blood clots Hyperglycemia Hyperlipidemia Hypertension Insomnia 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 Noncompliance Osteoarthritis Pulmonary embolism (HCC) Thyroid disease Tobacco abuse Type II or unspecified type diabetes mellitus without mention of complication, not stated as uncontrolled (HCC) Weakness SURGICAL HISTORY Past Surgical History: Procedure Laterality Date CATARACT EXTRACTION Left 2022 CHOLECYSTECTOMY COLONOSCOPY PLEURA BIOPSY 08/11/2021 VATs with thoracotomy resection of mediastinal mass TONSILLECTOMY (HISTORICAL) TOTAL ABDOMINAL HYSTERECTOMY CURRENT MEDICATIONS Previous Medications AMLODIPINE (NORVASC) 10 MG TABLET Take 1 tablet (10 mg) by mouth daily. ATORVASTATIN (LIPITOR) 40 MG TABLET TAKE TWO BY MOUTH EVERY OTHER DAY ALTERNATING WITH ONE EVERY OTHER DAY CHOLECALCIFEROL (VITAMIN D-3) 25 MCG (1000 UT) TABLET Take 1,000 Units by mouth daily. CLONAZEPAM (KLONOPIN) 0.5 MG TABLET Take 0.5 mg by mouth in the morning and 0.5 mg in the evening. DAPAGLIFLOZIN (FARXIGA) 10 MG Take 1 tablet (10 mg) by mouth daily (with breakfast). GLIMEPIRIDE (AMARYL) 4 MG TABLET TAKE ONE BY MOUTH TWICE DAILY WITH MEALS IRBESARTAN (AVAPRO) 150 MG TABLET Take 1 tablet (150 mg) by mouth daily. LINAGLIPTIN (TRADJENTA) 5 MG TABLET Take 1 tablet (5 mg) by mouth daily. METFORMIN (GLUCOPHAGE) 1000 MG TABLET Take 1 tablet (1,000 mg) by mouth in the morning and 1 tablet (1,000 mg) in the evening. Take with meals. MIRTAZAPINE (REMERON) 30 MG TABLET Take 45 mg by mouth. PAROXETINE (PAXIL) 20 MG TABLET Take 20 mg by mouth 2 times daily. TIRZEPATIDE (MOUNJARO) 2.5 MG/0.5ML SOLUTION PEN-INJECTOR Inject 2.5 mg under the skin 1 (one) time per week for 28 days. ALLERGIES Nsaids, Sulfa antibiotics, and Sulfamethoxazole-trimethoprim FAMILY HISTORY Family History Problem Relation Name Age of Onset High Blood Pressure Father Arthritis Brother Hyperlipidemia Mother Diabetes Mother High Blood Pressure Mother Arthritis Mother Hyperlipidemia Father SOCIAL HISTORY Social History Socioeconomic History Marital status: Tobacco Use Smoking status: Every Day Packs/day: .5 Types: Cigarettes Smokeless tobacco: Never Vaping Use Vaping Use: Never used Substance and Sexual Activity Alcohol use: No Drug use: No Social History Narrative , 1 child, daughter, 35, no grandkids,smoker, 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 SCREENINGS [place] Coma Scale Best Eye Response: Spontaneous Best Verbal Response: Oriented Best Motor Response: Follows commands [place] Coma Scale Score: 15 PHYSICAL EXAM ED Triage Vitals [07/24/23 1305] Temp Heart Rate Resp BP 37.3 C (99.1 F) 80 20 138/85 SpO2 Temp Source Heart Rate Source Patient Position 95 % Temporal Monitor -- BP Location FiO2 (%) -- -- Physical Exam Vitals and nursing note reviewed. Constitutional: General: She is not in acute distress. Appearance: Normal appearance. She is obese. She is not ill-appearing or toxic-appearing. HENT: Head: Normocephalic and atraumatic. Right Ear: External ear normal. Left Ear: External ear normal. Mouth/Throat: Mouth: Mucous membranes are moist. Pharynx: Oropharynx is clear. Eyes: Extraocular Movements: Extraocular movements intact. Conjunctiva/sclera: Conjunctivae normal. Pupils: Pupils are equal, round, and reactive to light. Cardiovascular: Rate and Rhythm: Normal rate and regular rhythm. Pulses: Normal pulses. Heart sounds: Normal heart sounds. No murmur heard. Abdominal: Comments: The abdomen is soft and nondistended, there is tenderness throughout the upper abdomen without guarding or rebound tenderness, bowel sounds are normal. Musculoskeletal: General: No swelling, tenderness, deformity or signs of injury. Normal range of motion. Cervical back: Normal range of motion and neck supple. No rigidity or tenderness. Lymphadenopathy: Cervical: No cervical adenopathy. Skin: General: Skin is warm and dry. Capillary Refill: Capillary refill takes less than 2 seconds. Coloration: Skin is not jaundiced or pale. Findings: No bruising or erythema. Neurological: General: No focal deficit present. Mental Status: She is alert and oriented to person, place, and time. Mental status is at baseline. Cranial Nerves: No cranial nerve deficit. Sensory: No sensory deficit. Psychiatric: Mood and Affect: Mood normal. DIAGNOSTIC RESULTS Procedures/EKG: EKG was reviewed by myself. Physician EKG interpretation can be found in [facility] RADIOLOGY (Per Emergency Physician): Interpretation per the Radiologist below, if available at the time of this note: CT abdomen pelvis w contrast Final Result No acute abnormality within the abdomen/pelvis. Small sliding hiatal hernia. Chronic minimal left-sided hydronephrosis. Report Dictated on Electronically Signed By: Skylar Orellana MD Electronically Signed Date/Time: 07/24/2023 4:21 PM EST ED BEDSIDE ULTRASOUND: Performed by ED Physician - none LABS: Labs Reviewed COMPREHENSIVE METABOLIC PANEL - Abnormal Result Value SODIUM 138 POTASSIUM 3.2 (*) CHLORIDE 106 CARBON DIOXIDE 24 ANION GAP 9 UREA NITROGEN 15 CREATININE 0.49 (*) GLUCOSE 140 (*) CALCIUM 9.5 AST (SGOT) 20 ALT 16 ALKALINE PHOSPHATASE 128 (*) ALBUMIN 4.2 BILIRUBIN, TOTAL 0.3 TOTAL PROTEIN 7.4 eGFR >90.0 CBC (HEMOGRAM) - Abnormal Auto WBC 14.8 (*) RBC 5.13 Hemoglobin 13.0 Hematocrit 40.4 MCV 78.7 (*) MCH 25.2 (*) MCHC 32.1 RDW 19.7 (*) Platelets 361 MPV 7.9 LIPASE - Normal LIPASE 83 MAGNESIUM - Normal MAGNESIUM 1.6 TROPONIN, WITH SERIAL REFLEX - Normal TROPONIN I <0.012 Narrative: Patients with high levels of Biotin oral intake (ie >5 mg/day) may have falsely decreased Troponin levels. COMPLETE URINALYSIS WITH REFLEX TO CULTURE Narrative: The following orders were created for panel order Urinalysis complete with reflex to Culture. Procedure Abnormality Status --------- ------ Complete Urinalysis[[id number]] Please view results for these tests on the individual orders. COMPLETE URINALYSIS TROPONIN I All other labs were within normal range or not returned as of this dictation. EMERGENCY DEPARTMENT COURSE and DIFFERENTIAL DIAGNOSIS/MDM: Vitals: Vitals: 07/24/23 1305 07/24/23 1306 07/24/23 1636 BP: 138/85 124/61 Pulse: 80 63 Resp: 20 15 Temp: 37.3 C (99.1 F) 36.8 C (98.2 F) TempSrc: Temporal Temporal SpO2: 95% 95% 94% Diagnoses as of 07/24/23 1646 Epigastric pain Gastroesophageal reflux disease, unspecified whether esophagitis present Hiatal hernia The patient presented with chief complaint of with chief complaint of having abdominal pain since . Patient states she was at [facility] in June and she states they did a colonoscopy and checked her stool and checked a bunch of tests and no one can tell her why she is having pain throughout her upper abdomen. She complains of prior appendectomy and cholecystectomy states sometimes she has some bilious green emesis in her diarrhea states the pain seems to get worse after she eats. She denies history of inflammatory bowel disease or any other complaints.. The differential diagnosis associated with this patient's presentation includes GERD, gastritis, peptic ulcer disease, colitis. Our workup consisted of ordering/reviewing: CBC, CMP, lipase, urinalysis. Diagnostic tests considered but not performed: None To aid in management, I performed an independent interpretation of EKG(s) EKG per my interpretation shows sinus rhythm with a rate of [address] elevation or depression with normal intervals. I also reviewed external records from [facility] in [place], patient was admitted she had colonoscopy with a polyp removal, she also had a negative C. difficile PCR, stool cryptosporidium, fecal lactoferrin and enteric bacterial pathogen panel was all negative. She had iron deficiency anemia and was given iron IV. . I discussed their care with none. Consideration for escalation of care with: Admission/observation however patient does not have any hospitalized will issue right now she does have a hiatal hernia and I will give her follow-up with surgery in regards to that she can follow-up with her money order clerk we will switch her to Protonix twice a day and Carafate, I encouraged her to return if she worsens she will be discharged home in stable condition. The patient will be Discharged. Patient is in agreement with this plan. Medications sodium chloride 0.9 % infusion (125 mL/hr IntraVENous New Bag 07/24/23 6513) pantoprazole (ProtoNix) EC tablet 40 mg (has no administration in time range) aluminum & magnesium hydroxide-simethicone (Mylanta) 200-200-20 MG/5ML oral suspension 20 mL (has no administration in time range) morphine injection 4 mg (4 mg IntraVENous Given 07/24/23 1443) ondansetron (Zofran) injection 4 mg (4 mg IntraVENous Given 07/24/23 1442) iopamidol (Isovue-370) 76 % injection 75 mL (75 mL IntraVENous Given 07/24/23 1532) REVAL: CRITICAL CARE TIME None CONSULTS: None PROCEDURES: Unless otherwise noted below, none Procedures Patients symptoms are consistent with sepsis, severe sepsis, or septic shock (If yes use .sepsiscoremeasure): no FINAL IMPRESSION 1. Epigastric pain 2. Gastroesophageal reflux disease, unspecified whether esophagitis present 3. Hiatal hernia DISPOSITION Discharge 07/24/2023 04:42:34 PM PATIENT REFERRED TO: Your GI doctor Call in 1 day Binh Parrish [address] [place] [address] [address] [place] [address] regarding your hiatal hernia DISCHARGE MEDICATIONS: New Prescriptions PANTOPRAZOLE (PROTONIX) 40 MG EC TABLET Take 1 tablet (40 mg) by mouth 2 times daily. Do not crush, chew, or split. SUCRALFATE (CARAFATE) 1 GM/10ML SUSPENSION Take 10 mL (1 g) by mouth 3 times daily. (Comment: Please note this report has been produced using speech recognition software and may contain errors related to that system including errors in grammar, punctuation, and spelling, as well as words and phrases that may be inappropriate. If there are any questions or concerns please feel free to contact the dictating provider for clarification.) JOE Matamoros CNP (electronically signed) Emergency Medicine Provider JOE Matamoros CNP 07/24/23 1647 [facility] 07-12-2023 Evaluation + Plan note Associated Problem(s): Hypercholesteremia Chronic and relatively unstable continue on Lipitor 40 mg every other day. Unclear if last level was done fasting number patient appears to have an intolerance to the medications which is why she was previously placed on every other day dosing. [facility] 07-12-2023 Miscellaneous Notes Associated Problem(s): Hypercholesteremia Chronic and relatively unstable continue on Lipitor 40 mg every other day. Unclear if last level was done fasting number patient appears to have an intolerance to the medications which is why she was previously placed on every other day dosing. Associated Problem(s): Type 2 diabetes mellitus without complication, without long-term current use of insulin ([facility] [facility]) - Chronic unstable and out of control most recent A1c is 8.0. We will add low-dose Mounjaro to the regimen however will place referral to endocrinology as the patient is currently getting maxed out on all diabetic agents - Patient readily admits she does not follow a strict ADA diet nor does she routinely check her blood sugars at home. I think this limits the ability to adequately and successfully control her blood sugar. - She reports ongoing issues of colitis and abdominal pain I believe could be secondary to poorly controlled diabetes. documented in this encounter [facility] 07-12-2023 Evaluation + Plan note Associated Problem(s): Type 2 diabetes mellitus without complication, without long-term current use of insulin ([facility]) ([facility]) - Chronic unstable and out of control most recent A1c is 8.0. We will add low-dose Mounjaro to the regimen however will place referral to endocrinology as the patient is currently getting maxed out on all diabetic agents - Patient readily admits she does not follow a strict ADA diet nor does she routinely check her blood sugars at home. I think this limits the ability to adequately and successfully control her blood sugar. - She reports ongoing issues of colitis and abdominal pain I believe could be secondary to poorly controlled diabetes. [facility] 07-12-2023 History of Present illness Narrative Images from the original note were not included. [facility] [address] [place] [address] [address] [facility] [address] Dept: [phone] Dept Loc: [phone] Visit type: New Patient Reason for Visit: New Patient (Dm check up ) Assessment and Plan 1. Hypercholesteremia Assessment & Plan: Chronic and relatively unstable continue on Lipitor 40 mg every other day. Unclear if last level was done fasting number patient appears to have an intolerance to the medications which is why she was previously placed on every other day dosing. Orders: - atorvastatin (Lipitor) 40 MG tablet; TAKE TWO BY MOUTH EVERY OTHER DAY ALTERNATING WITH ONE EVERY OTHER DAY, Normal 2. Type 2 diabetes mellitus without complication, without long-term current use of insulin ([facility]) ([facility]) Assessment & Plan: - Chronic unstable and out of control most recent A1c is 8.0. We will add low-dose Mounjaro to the regimen however will place referral to endocrinology as the patient is currently getting maxed out on all diabetic agents - Patient readily admits she does not follow a strict ADA diet nor does she routinely check her blood sugars at home. I think this limits the ability to adequately and successfully control her blood sugar. - She reports ongoing issues of colitis and abdominal pain I believe could be secondary to poorly controlled diabetes. Orders: - linaGLIPtin (Tradjenta) 5 MG tablet; Take 1 tablet (5 mg) by mouth daily., Starting Tue07/12/2023, Until 01/08/2024, Normal - [facility] - Tirzepatide (Mounjaro) 2.5 MG/0.5ML solution pen-injector; Inject 2.5 mg under the skin 1 (one) time per week for 28 days., Starting Tue07/12/2023, Until 08/09/2023, Normal 3. Flu vaccine need - Flu vaccine quadrivalent, for patients ages 65+, (Fluad) preservative free Follow up in 3 months (on 10/12/2023), or will need to see PCP next visit. Subjective HPI this is a 58-year-old female with an underlying history of hypertension, GERD, arthritis, Graves' disease, type 2 diabetes and morbid obesity who was previously seeing Dr. Salinas, presents to the office today for establishment of medical care. She was seen in the ER couple weeks ago and subsequently had baseline blood work done at that time. Urine showed significant signs of infection including blood and leukocytes and bilirubin. CBC and CMP are otherwise unremarkable glucose was slightly elevated at 142. Started with stomach cramps and diarrhea as soon as would eat. Review of her records show that she had an A1c checked approximately 3 weeks ago and was 8.0. Review of the records also show that they were going to prescribe her Macrobid but she insisted that the only thing that will not cause her C. difficile is ciprofloxacin. ER thought pancreatitis, and GI thought more Bowel related of unclear etiology. Diet still off, and more soft and BRAT diet. But if eats solid food, symptoms start all over. Last blood sugar draw was in hospital and don't routinely follow any diet or check blood sugars. Did have covid and was subsequently given steroids in 2020. Patient was recently seen in the emergency room on 06/22 Per ER note, Thea Dorman is a 58 y.o. female who presents to the emergency department with abdominal pain. Epigastric and right upper quadrant. She was just in the hospital at [facility]. She had blood work done. She had colonoscopy. She is CT. CT showed no acute process. Colonoscopy report and CT report reviewed. She is discharged still having discomfort. She has had diarrhea. She has had pain. No chest pain. No shortness of breath. No fevers or chills. No blood in the stool. No lower abdominal pain. No back pain. Review of Systems Constitutional: Negative for chills and fever. HENT: Negative for congestion and sore throat. Respiratory: Negative for cough and shortness of breath. Cardiovascular: Negative for chest pain. Gastrointestinal: Positive for abdominal pain and diarrhea. Negative for nausea and vomiting. Genitourinary: Negative for difficulty urinating, dysuria, frequency and urgency. Musculoskeletal: Negative for back pain. Neurological: Negative for dizziness and light-headedness. All other systems reviewed and are negative. Allergies Allergen Reactions Nsaids Anaphylaxis, Hives and Itching Pt gets hives and itching from taking any NSAIDS Sulfa Antibiotics Diarrhea Other reaction(s): GI Upset Sulfamethoxazole-Trimethoprim Diarrhea and Nausea And Vomiting Outpatient Medications Prior to Visit Medication Sig Dispense Refill amLODIPine (Norvasc) 10 MG tablet Take 1 tablet (10 mg) by mouth daily. 90 tablet 1 cholecalciferol (Vitamin D-3) 25 MCG (1000 UT) tablet Take 1,000 Units by mouth daily. clonazePAM (KlonoPIN) 0.5 MG tablet Take 0.5 mg by mouth in the morning and 0.5 mg in the evening. dapagliflozin (Farxiga) 10 MG Take 1 tablet (10 mg) by mouth daily (with breakfast). 90 tablet 1 glimepiride (Amaryl) 4 MG tablet TAKE ONE BY MOUTH TWICE DAILY WITH MEALS 180 tablet 1 irbesartan (Avapro) 150 MG tablet Take 1 tablet (150 mg) by mouth daily. 90 tablet 1 metFORMIN (Glucophage) 1000 MG tablet Take 1 tablet (1,000 mg) by mouth in the morning and 1 tablet (1,000 mg) in the evening. Take with meals. 180 tablet 1 mirtazapine (Remeron) 30 MG tablet Take 45 mg by mouth. omeprazole (PriLOSEC) [address] capsule Take 20 mg by mouth daily. PARoxetine (Paxil) 20 MG tablet Take 20 mg by mouth 2 times daily. atorvastatin (Lipitor) 40 MG tablet TAKE TWO BY MOUTH EVERY OTHER DAY ALTERNATING WITH ONE EVERY OTHER DAY linaGLIPtin (Tradjenta) 5 MG tablet Take 1 tablet (5 mg) by mouth daily. 90 tablet 1 methIMAzole (Tapazole) 10 MG tablet Take 2 tablets by mouth daily. No facility-administered medications prior to visit. Past Medical History: Diagnosis Date Alimentary obesity 04/03/2016 Anxiety Asthma Chronic low back pain 04/03/2016 COPD exacerbation (HCC) 06/11/2020 Depression Fatty liver 02/06/2015 GERD (gastroesophageal reflux disease) H/O ovarian cystectomy History of LAVH Hx of blood clots Hyperglycemia Hyperlipidemia Hypertension Insomnia 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 Noncompliance Osteoarthritis Pulmonary embolism (HCC) Thyroid disease Tobacco abuse Type II or unspecified type diabetes mellitus without mention of complication, not stated as uncontrolled (HCC) Weakness Social History Tobacco Use Smoking status: Every Day Packs/day: .5 Types: Cigarettes Smokeless tobacco: Never Substance Use Topics Alcohol use: No Past Surgical History: Procedure Laterality Date CATARACT EXTRACTION Left 2022 CHOLECYSTECTOMY COLONOSCOPY PLEURA BIOPSY 08/11/2021 VATs with thoracotomy resection of mediastinal mass TONSILLECTOMY (HISTORICAL) TOTAL ABDOMINAL HYSTERECTOMY Family History Problem Relation Name Age of Onset High Blood Pressure Father Arthritis Brother Hyperlipidemia Mother Diabetes Mother High Blood Pressure Mother Arthritis Mother Hyperlipidemia Father Objective BP 120/70 (BP Location: Right arm, Patient Position: Sitting, BP Cuff Size: Adult) Pulse 81 Temp 36.5 C (97.7 F) (Temporal) Ht 5' 5 (1.651 m) Wt 221 lb (100 kg) SpO2 93% BMI 36.78 kg/m Physical Exam Vitals reviewed. Constitutional: General: She is not in acute distress. Appearance: Normal appearance. She is not ill-appearing or toxic-appearing. Eyes: General: No scleral icterus. Conjunctiva/sclera: Conjunctivae normal. Pupils: Pupils are equal, round, and reactive to light. Cardiovascular: Rate and Rhythm: Normal rate and regular rhythm. Heart sounds: Normal heart sounds. Pulmonary: Effort: Pulmonary effort is normal. No respiratory distress. Breath sounds: Normal breath sounds. Musculoskeletal: Cervical back: Normal range of motion and neck supple. Skin: General: Skin is warm and dry. Neurological: Mental Status: She is alert. Psychiatric: Mood and Affect: Mood normal. Examination of bilateral feet appears unremarkable. Skin is intact warm and dry good dorsalis pedis and posterior tibial pulses. Skin between the toes is checked there is no signs of ulceration skin breakdown or lesions. Plantar surface is intact again no signs of ulcerations lesions skin breakdown or signs of foreign bodies or other acute abnormalities. Skin itself is warm and dry. Good sensation and 8 points of contact on the plantar surface of the feet. Good full range of motion. Vogt's test was negative. Data Reviewed and Summarized Labs: Imaging/Testing: Hari Casanova PA-C 07/12/2023 Please note that portions of this note may have been completed with voice recognition software. Documentation reviewed prior to signing but minor errors in filler spreader may have occurred. documented in this encounter [facility] 06-22-2023 History of Present illness Narrative This note was created using [employer]. Subjective Thea Dorman is a 58 year old female. HPI by patient: Thea Dorman is a 58 year old presenting to the office with the complaint of uti symptoms. Started today. Associated symptoms include burning on urination and frequency. States she has been in the hospital and knows that she is dehydrated and that is what caused this. Denies fever, chills, body aches, fatigue, nausea, vomiting, abdominal pain, and back pain. No vaginal symptoms. OTC Azo. No antibiotic use in the last 60 days. ALLERGIES Nsaids (Non-Steroid* Hives, Itching Comment:Pt gets hives and itching from taking any NSAIDS Sulfa (Sulfonamide * Diarrhea, GI Upset Family History Reviewed Including Cardiac Diseases, Psychiatric Diseases, & Substance Abuse Problem: Hypertension Relation: Mother Age of Onset: (Not Specified) Social History Tobacco Use Smoking status: Heavy Smoker Types: Cigarettes Smokeless tobacco: Never Vaping Use Vaping Use: Never used Alcohol use: No Drug use: No Active Ambulatory Problems Hypertension Date Noted: 10/24/2014 Diarrhea Date Noted: 03/08/2016 Recurrent major depressive disorder (HCC) Date Noted: 04/02/2016 Gastroesophageal reflux disease without esophagitis Date Noted: 04/03/2016 Nicotine use disorder Date Noted: 04/03/2016 Chronic midline low back pain Date Noted: 04/03/2016 Hypercholesterolemia Date Noted: 04/03/2016 Vitamin D deficiency Date Noted: 04/03/2016 Colitis Date Noted: 05/18/2019 Type 2 diabetes mellitus without complication, without long-term current use of insulin (HCC) Date Noted: 05/18/2019 Obesity, Class II, BMI 35-39.9 Date Noted: 05/21/2019 Fatty liver Date Noted: 02/06/2015 Graves disease Date Noted: 09/08/2020 Elevated alkaline phosphatase level Date Noted: 03/09/2021 Leukocytosis Date Noted: 03/13/[address] of the chest Date Noted: 03/14/2021 Abdominal pain Date Noted: 06/15/2023 Intractable abdominal pain Date Noted: 06/17/2023 Resolved Ambulatory Problems SOB (shortness of breath) Date Noted: 10/24/2014 Pneumonia Date Noted: 10/25/2014 Lower abdominal pain Date Noted: 03/08/2016 UTI (urinary tract infection) Date Noted: 03/08/2016 Abdominal pain Date Noted: 03/08/2016 Suicide (HCC) Date Noted: 03/31/2016 Abnormal urinalysis Date Noted: 04/03/2016 Pyelonephritis Date Noted: 09/06/2016 Drug overdose Date Noted: 11/29/2016 Hypoxemia Date Noted: 12/02/2016 Acute pulmonary embolism (HCC) Date Noted: 12/02/2016 Bronchitis Date Noted: 09/20/2018 Sepsis (HCC) Date Noted: 05/18/2019 Past Medical History: No date: Diabetes (HCC) No date: Psychiatric disorder Review of Systems Constitutional: Negative. HENT: Negative. Eyes: Negative. Respiratory: Negative. Cardiovascular: Negative. Gastrointestinal: Negative. Endocrine: Negative. Genitourinary: Positive for dysuria and frequency. Musculoskeletal: Negative. Skin: Negative. Neurological: Negative. Hematological: Negative. Objective BP 121/67 Pulse 87 Temp 36.1 C (97 F) Resp 16 Ht 165.1 cm (5' 5) Wt 101.2 kg (223 lb) SpO2 94% BMI 37.11 kg/m Physical Exam Vitals reviewed. Constitutional: General: She is not in acute distress. Appearance: She is not ill-appearing, toxic-appearing or diaphoretic. Cardiovascular: Rate and Rhythm: Normal rate and regular rhythm. Pulmonary: Effort: Pulmonary effort is normal. Abdominal: General: Bowel sounds are normal. Palpations: Abdomen is soft. Tenderness: There is abdominal tenderness in the suprapubic area. There is no right CVA tenderness, left CVA tenderness, guarding or rebound. Neurological: Mental Status: She is alert. Psychiatric: Behavior: Behavior is uncooperative and agitated. Assessment and Plan (R39.9) UTI symptoms (primary encounter diagnosis) Plan: URINE CULTURE, ciprofloxacin HCl (CIPRO) 500 mg tablet -UA likely skewed from Azo. Will start macrobid and send culture. Prefer to start with macrobid per [facility] guidelines. However patient wants to take cipro, states only antibiotic that won't cause her c-diff even though it's a very strong antibiotic. Is argumentative and states she need cipro. Discussed black box warning. Get an OTC probiotic. -Increase fluids. Focus on clears. -Decrease sugary drink intake. Minimize caffeine. -Wipe front to back. No tight clothing. No bubble baths. -Results will be released to [facility] unless there is a need for a change in medication. -Call today for a follow up with primary care. -Be seen immediately or go to the ER with worsening/warning symptoms. Warning symptoms include: chills, severe flank pain, severe abdominal/pelvic pain, fevers 101 or higher, chest pain, and respiratory distress. The patient will pursue further outpatient evaluation with the primary care physician or another Urgent Care/Express Care as outlined in the after visit summary. The patient is agreeable to this plan of care and follow-up instructions have been explained in detail. The patient has received these instructions in written format and have expressed an understanding of the after visit summary. Medical Decision Making: Level: 4 - Moderate I spent a total of 20 minutes on the date of the service which included preparing to see the patient, [id number] patient care, completing clinical documentation, obtaining and/or reviewing separately obtained history, performing a medically appropriate examination, counseling and educating the patient/family/caregiver, and ordering medications, tests, or procedures. documented in this encounter [facility] 06-22-2023 Instructions Ashley Amor APRN.CNP - 06/22/2023 2:20 PM EST (R39.9) UTI symptoms (primary encounter diagnosis) Plan: URINE CULTURE, ciprofloxacin HCl (CIPRO) 500 mg tablet -UA likely skewed from Azo. Will start macrobid and send culture. Prefer to start with macrobid per [facility] guidelines. However patient wants to take cipro, states only antibiotic that won't cause her c-diff even though it's a very strong antibiotic. Discussed black box warning. Get an OTC probiotic. -Increase fluids. Focus on clears. -Decrease sugary drink intake. Minimize caffeine. -Wipe front to back. No tight clothing. No bubble baths. -Results will be released to [facility] unless there is a need for a change in medication. -Call today for a follow up with primary care. -Be seen immediately or go to the ER with worsening/warning symptoms. Warning symptoms include: chills, severe flank pain, severe abdominal/pelvic pain, fevers 101 or higher, chest pain, and respiratory distress. Certain foods and beverages might irritate your bladder, including: Coffee, tea and carbonated drinks, even without caffeine. Alcohol. Certain acidic fruits -- oranges, grapefruits, flako and limes -- and fruit juices. Spicy foods. Tomato-based products. Carbonated drinks. Chocolate. documented in this encounter [facility] 06-21-2023 Hospital Discharge instructions Tunde Patrick MD - 06/21/2023 12:07 PM EST Continue all current medications. The following attachments cannot be sent through Care Everywhere.Abdominal Pain, Adult ED ([place])documented in this encounter [facility] 06-21-2023 Emergency department Note IV noted to be infiltrated by patient. IV removed and coban wrap to area. Aria Perez RN 06/21/23 1159 [facility] 06-21-2023 Emergency department Note [facility] ED EMERGENCY DEPARTMENT ENCOUNTER Pt Name: Thea Dorman Birthdate 1965 Date of evaluation: 06/21/2023 Provider: Tunde Patrick MD CHIEF COMPLAINT Chief Complaint Patient presents with Abdominal Pain HISTORY OF PRESENT ILLNESS (Location/Symptom, Timing/Onset,Context/Setting, Quality, Duration, Modifying Factors, Severity) Note limiting factors. Thea Dorman is a 58 y.o. female who presents to the emergency department with abdominal pain. Epigastric and right upper quadrant. She was just in the hospital at [facility]. She had blood work done. She had colonoscopy. She is CT. CT showed no acute process. Colonoscopy report and CT report reviewed. She is discharged still having discomfort. She has had diarrhea. She has had pain. No chest pain. No shortness of breath. No fevers or chills. No blood in the stool. No lower abdominal pain. No back pain. HPI Historian is the the patient Nurse's notes for past medical history, surgical history, social history were reviewed. Medications and allergies reviewed. 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 Noncompliance Osteoarthritis Pulmonary embolism (HCC) Thyroid disease Tobacco abuse Type II or unspecified type diabetes mellitus without mention of complication, not stated as uncontrolled (HCC) Weakness SURGICALHISTORY Past Surgical History: Procedure Laterality Date CATARACT EXTRACTION Left 2022 CHOLECYSTECTOMY COLONOSCOPY PLEURA BIOPSY 08/11/2021 VATs with thoracotomy resection of mediastinal mass TONSILLECTOMY (HISTORICAL) TOTAL ABDOMINAL HYSTERECTOMY CURRENT MEDICATIONS Discharge Medication List as of 06/21/2023 12:10 PM CONTINUE these medications which have NOT CHANGED Details amLODIPine (Norvasc) 10 MG tablet Take 1 tablet (10 mg) by mouth daily., Starting Tue11/16/2022, Until Tue03/24/2023, Normal atorvastatin (Lipitor) 40 MG tablet TAKE TWO BY MOUTH EVERY OTHER DAY ALTERNATING WITH ONE EVERY OTHER DAY, Historical Med cholecalciferol (Vitamin D-3) 25 MCG (1000 UT) tablet Take 1,000 Units by mouth daily., Historical Med clonazePAM (KlonoPIN) 0.5 MG tablet Take 0.5 mg by mouth in the morning and 0.5 mg in the evening., Historical Med dapagliflozin (Farxiga) 10 MG Take 1 tablet (10 mg) by mouth daily (with breakfast)., Starting Tue03/24/2023, Normal glimepiride (Amaryl) 4 MG tablet TAKE ONE BY MOUTH TWICE DAILY WITH MEALS, Normal irbesartan (Avapro) 150 MG tablet Take 1 tablet (150 mg) by mouth daily., Starting Tue11/16/2022, Until Tue03/24/2023, Normal linaGLIPtin (Tradjenta) 5 MG tablet Take 1 tablet (5 mg) by mouth daily., Starting Tue02/02/2023, Until Tue08/01/2023, Normal metFORMIN (Glucophage) 1000 MG tablet Take 1 tablet (1,000 mg) by mouth in the morning and 1 tablet (1,000 mg) in the evening. Take with meals., Starting Tue03/24/2023, Until Tue09/20/2023, Normal methIMAzole (Tapazole) 10 MG tablet Take 2 tablets by mouth daily., Starting Tue08/18/2021, Historical Med mirtazapine (Remeron) 30 MG tablet Take 45 mg by mouth., Historical Med omeprazole (PriLOSEC) [address] capsule Take 20 mg by mouth daily., Historical Med PARoxetine (Paxil) 20 MG tablet Take 20 mg by mouth 2 times daily., Historical Med Nsaids, Sulfa antibiotics, and Sulfamethoxazole-trimethoprim FAMILY HISTORY Family History Problem Relation Name Age of Onset High Blood Pressure Father Arthritis Brother Hyperlipidemia Mother Diabetes Mother High Blood Pressure Mother Arthritis Mother Hyperlipidemia Father SOCIAL HISTORY Social History Socioeconomic History Marital status: Tobacco Use Smoking status: Every Day Packs/day: .5 Types: Cigarettes Smokeless tobacco: Never Vaping Use Vaping Use: Never used Substance and Sexual Activity Alcohol use: No Drug use: No SCREENINGS PHYSICAL EXAM (up to 7 for level 4, 8 or more for level 5) @EDTRIAGEVSS@ Appropriate PPE including n 95, gown, gloves, goggles where worn when appropriate with this patient. Physical Exam Vital signs reviewed general: Alert and oriented 3 head: Atraumatic eyes: Equal round reactive to light and accommodating, pupils are equal, round and reactive to light and accommodation oropharynx: Clear and well hydrated neck: Supple heart: Regular rate and rhythm, no murmurs lungs: Clear to auscultation bilaterally abdomen: Soft but does have tenderness epigastric and right upper quadrant no rebound or guarding. Positive bowel sounds, no peritoneal findings. Extremities: Moving all fours, no tenderness. Normal capillary refill. Skin: No rash or lesions -to the exposed skin neurologically: Alert and oriented 3, no focal deficit DIAGNOSTIC RESULTS RADIOLOGY: Interpretation per the Radiologist below, if availableat the time of this note: No orders to display ED BEDSIDE ULTRASOUND: Performed by ED Physician - none LABS: Labs Reviewed COMPREHENSIVE METABOLIC PANEL - Abnormal Result Value SODIUM 139 POTASSIUM 3.5 CHLORIDE 104 CARBON DIOXIDE 22 ANION GAP 13 UREA NITROGEN 8 CREATININE 0.84 GLUCOSE 142 (*) CALCIUM 9.6 AST (SGOT) 26 ALT 21 ALKALINE PHOSPHATASE 92 ALBUMIN 4.4 BILIRUBIN, TOTAL 0.4 TOTAL PROTEIN 7.5 eGFR 80.7 CBC WITH AUTO DIFFERENTIAL - Abnormal Auto WBC 8.8 RBC 5.07 Hemoglobin 12.2 Hematocrit 40.0 MCV 78.9 (*) MCH 24.1 (*) MCHC 30.5 (*) RDW 17.2 (*) Platelets 355 MPV 10.0 Neutrophils Relative 81.6 (*) Lymphocytes Relative 6.6 (*) Monocytes Relative 9.3 Eosinophils Relative 1.4 Basophils Relative 0.5 Immature Grans % 0.6 (*) Neutrophils Absolute 7.2 (*) Lymphocytes Absolute 0.6 (*) Monocytes Absolute 0.8 Eosinophils Absolute 0.1 Basophils Absolute 0.0 Immature Grans Absolute 0.1 (*) LIPASE - Normal LIPASE 57 All other labs were within normal range or not returned as of thisdictation. EMERGENCYDEPARTMENT COURSE and DIFFERENTIAL DIAGNOSIS/MDM: Vitals: Vitals: 06/21/23 1054 06/21/23 1222 BP: 127/66 124/81 BP Location: Right arm Patient Position: Lying Pulse: 94 80 Resp: 16 Temp: 36.4 C (97.6 F) TempSrc: Oral SpO2: 95% Weight: 102 kg (225 lb) Medical Decision Making Problems Addressed: Generalized abdominal pain: complicated acute illness or injury Amount and/or Complexity of Data Reviewed Labs: ordered. Risk Prescription drug management. EMERGENCY DEPARTMENT COURSE and DIFFERENTIAL DIAGNOSIS/MDM: Vitals: Vitals: 06/21/23 1054 06/21/23 1222 BP: 127/66 124/81 BP Location: Right arm Patient Position: Lying Pulse: 94 80 Resp: 16 Temp: 36.4 C (97.6 F) TempSrc: Oral SpO2: 95% Weight: 102 kg (225 lb) The patient presented with a chief complaint of abdominal pain. The differential diagnosis associated with this patient's presentation includes bowel obstruction, hiatal hernia, diverticulitis, pancreatitis, undifferentiated abdominal pain, viral illness, dehydration, electrolyte disturbance. Our workup consisted of ordering/reviewing blood work. Labs reviewed. Microcytic indices but normal white blood cell count. Normal lipase. Glucose 142 otherwise normal CMP. Given 1 L IV fluids. 4 mg IV morphine and 4 mg IV Zofran. Repeat evaluation no rebound or guarding no peritoneal findings. Extensive review of her records from the [facility] [place] admission and evaluation that she had in early June I do not believe any repeat imaging is indicated. I believe to be further worked up as an outpatient. Patient agrees to this. Return here if any problems or concerns. Diagnoses as of 06/21/23 1245 Generalized abdominal pain Diagnostics considered but not indicated based on history, physical, testing: CT and ultrasound however not clinically indicated based on review of records from [facility]. External records reviewed: Outpatient notes outpatient and inpatient records reviewed from admission include [facility] 06/15/2023. Radiologic diagnostics interpreted by me: film images such as CT, Ultrasound and MRI are read by the radiologist. Plain radiographic images are visualized and preliminarily interpreted by the emergency physician with the below findings: none Discussions with other clinicians: none Chronic conditions impacting care: Insomnia blood clot COPD exacerbation anxiety hiatal hernia diabetes patient had colonoscopy. Gallbladder removal. Hysterectomy. Social determinants of health affecting care: Patient smokes Shared decision making: Patient agrees to treatment plan Admission to the hospital considered : Considered placement in the hospital however she has had colonoscopy extensive work-up I believe she can be further worked up as an outpatient to follow-up with primary care physician and GI specialist. ED Medications managed: Medications sodium chloride 0.9 % bolus 1,000 mL (0 mL IntraVENous Stopped 06/21/23 1217) morphine injection 4 mg (4 mg IntraVENous Given 06/21/23 1126) ondansetron (Zofran) injection 4 mg (4 mg IntraVENous Given 06/21/23 1126) Prescription drugs considered: Bentyl 10 mg every 6 hours as needed for pain. Zofran 4 mg ODT every 6 hours as needed for nausea. PROCEDURES: Unless otherwise noted below, none Procedures IMPRESSION 1. Generalized abdominal pain DISPOSITION/PLAN DISPOSITION Discharge 06/21/2023 12:07:22 PM PATIENT REFERRED TO: Your doctor, Dr. Robledo In 2 days Your GI doctor In 1 week Call tomorrow to be seen next 1 to 2 weeks. DISCHARGE MEDICATIONS: Discharge Medication List as of 06/21/2023 12:10 PM START taking these medications Details dicyclomine (Bentyl) 10 MG capsule Take 1 capsule (10 mg) by mouth every 6 hours as needed (Abdominal pain) for up to 5 days., Starting Tue06/21/2023, Until Tue06/26/2023 at 2359, Normal ondansetron ODT (Zofran-ODT) 4 MG disintegrating tablet Take 1 tablet (4 mg) by mouth every 8 hours as needed for nausea or vomiting for up to 7 days., Starting Tue06/21/2023, Until Tue06/28/2023 at 2359, Normal @[facility]([id number]:LAST:1)@ (Comment: Please notethis report has been produced using speech recognition software and may contain errors related to that system including errors in grammar, punctuation, and spelling, as well as words and phrases that may be inappropriate.If there is any questions or concerns please feel free to contact the dictating provider for clarification). Tunde Patrick MD (electronically signed) Attending Emergency Physician Tunde Patrick MD 06/21/23 1245 Pt ambulatory to room 2 with c/o continued upper abdominal pain x 2 weeks. Pt describes pain as constant dull ache with exacerbations of sharp pain that is increased with eating. Associated symptoms of diarrhea and nausea. Pt states she was evaluated and treated at [facility] with a colonoscopy on Tuesday with no known diagnosis, plan of care given per pt. IV noted to be infiltrated by patient. IV removed and coban wrap to area. Aria Perez RN 06/21/23 1159 documented in this encounter [facility] 06-21-2023 Emergency department Triage note Pt ambulatory to room 2 with c/o continued upper abdominal pain x 2 weeks. Pt describes pain as constant dull ache with exacerbations of sharp pain that is increased with eating. Associated symptoms of diarrhea and nausea. Pt states she was evaluated and treated at [facility] with a colonoscopy on Tuesday with no known diagnosis, plan of care given per pt. [facility] 06-21-2023 Physician Emergency department Note [facility] ED EMERGENCY DEPARTMENT ENCOUNTER Pt Name: Thea Dorman Birthdate 1965 Date of evaluation: 06/21/2023 Provider: Tunde Patrick MD CHIEF COMPLAINT Chief Complaint Patient presents with Abdominal Pain HISTORY OF PRESENT ILLNESS (Location/Symptom, Timing/Onset,Context/Setting, Quality, Duration, Modifying Factors, Severity) Note limiting factors. Thea Dorman is a 58 y.o. female who presents to the emergency department with abdominal pain. Epigastric and right upper quadrant. She was just in the hospital at [facility]. She had blood work done. She had colonoscopy. She is CT. CT showed no acute process. Colonoscopy report and CT report reviewed. She is discharged still having discomfort. She has had diarrhea. She has had pain. No chest pain. No shortness of breath. No fevers or chills. No blood in the stool. No lower abdominal pain. No back pain. HPI Historian is the the patient Nurse's notes for past medical history, surgical history, social history were reviewed. Medications and allergies reviewed. 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 Noncompliance Osteoarthritis Pulmonary embolism (HCC) Thyroid disease Tobacco abuse Type II or unspecified type diabetes mellitus without mention of complication, not stated as uncontrolled (HCC) Weakness SURGICALHISTORY Past Surgical History: Procedure Laterality Date CATARACT EXTRACTION Left 2022 CHOLECYSTECTOMY COLONOSCOPY PLEURA BIOPSY 08/11/2021 VATs with thoracotomy resection of mediastinal mass TONSILLECTOMY (HISTORICAL) TOTAL ABDOMINAL HYSTERECTOMY CURRENT MEDICATIONS Discharge Medication List as of 06/21/2023 12:10 PM CONTINUE these medications which have NOT CHANGED Details amLODIPine (Norvasc) 10 MG tablet Take 1 tablet (10 mg) by mouth daily., Starting Tue11/16/2022, Until Tue03/24/2023, Normal atorvastatin (Lipitor) 40 MG tablet TAKE TWO BY MOUTH EVERY OTHER DAY ALTERNATING WITH ONE EVERY OTHER DAY, Historical Med cholecalciferol (Vitamin D-3) 25 MCG (1000 UT) tablet Take 1,000 Units by mouth daily., Historical Med clonazePAM (KlonoPIN) 0.5 MG tablet Take 0.5 mg by mouth in the morning and 0.5 mg in the evening., Historical Med dapagliflozin (Farxiga) 10 MG Take 1 tablet (10 mg) by mouth daily (with breakfast)., Starting Tue03/24/2023, Normal glimepiride (Amaryl) 4 MG tablet TAKE ONE BY MOUTH TWICE DAILY WITH MEALS, Normal irbesartan (Avapro) 150 MG tablet Take 1 tablet (150 mg) by mouth daily., Starting Tue11/16/2022, Until Tue03/24/2023, Normal linaGLIPtin (Tradjenta) 5 MG tablet Take 1 tablet (5 mg) by mouth daily., Starting Tue02/02/2023, Until Tue08/01/2023, Normal metFORMIN (Glucophage) 1000 MG tablet Take 1 tablet (1,000 mg) by mouth in the morning and 1 tablet (1,000 mg) in the evening. Take with meals., Starting Tue03/24/2023, Until Tue09/20/2023, Normal methIMAzole (Tapazole) 10 MG tablet Take 2 tablets by mouth daily., Starting Tue08/18/2021, Historical Med mirtazapine (Remeron) 30 MG tablet Take 45 mg by mouth., Historical Med omeprazole (PriLOSEC) [address] capsule Take 20 mg by mouth daily., Historical Med PARoxetine (Paxil) 20 MG tablet Take 20 mg by mouth 2 times daily., Historical Med Nsaids, Sulfa antibiotics, and Sulfamethoxazole-trimethoprim FAMILY HISTORY Family History Problem Relation Name Age of Onset High Blood Pressure Father Arthritis Brother Hyperlipidemia Mother Diabetes Mother High Blood Pressure Mother Arthritis Mother Hyperlipidemia Father SOCIAL HISTORY Social History Socioeconomic History Marital status: Tobacco Use Smoking status: Every Day Packs/day: .5 Types: Cigarettes Smokeless tobacco: Never Vaping Use Vaping Use: Never used Substance and Sexual Activity Alcohol use: No Drug use: No SCREENINGS PHYSICAL EXAM (up to 7 for level 4, 8 or more for level 5) @EDTRIAGE[facility]SS@ Appropriate PPE including n 95, gown, gloves, goggles where worn when appropriate with this patient. Physical Exam Vital signs reviewed general: Alert and oriented 3 head: Atraumatic eyes: Equal round reactive to light and accommodating, pupils are equal, round and reactive to light and accommodation oropharynx: Clear and well hydrated neck: Supple heart: Regular rate and rhythm, no murmurs lungs: Clear to auscultation bilaterally abdomen: Soft but does have tenderness epigastric and right upper quadrant no rebound or guarding. Positive bowel sounds, no peritoneal findings. Extremities: Moving all fours, no tenderness. Normal capillary refill. Skin: No rash or lesions -to the exposed skin neurologically: Alert and oriented 3, no focal deficit DIAGNOSTIC RESULTS RADIOLOGY: Interpretation per the Radiologist below, if availableat the time of this note: No orders to display ED BEDSIDE ULTRASOUND: Performed by ED Physician - none LABS: Labs Reviewed COMPREHENSIVE METABOLIC PANEL - Abnormal Result Value SODIUM 139 POTASSIUM 3.5 CHLORIDE 104 CARBON DIOXIDE 22 ANION GAP 13 UREA NITROGEN 8 CREATININE 0.84 GLUCOSE 142 (*) CALCIUM 9.6 AST (SGOT) 26 ALT 21 ALKALINE PHOSPHATASE 92 ALBUMIN 4.4 BILIRUBIN, TOTAL 0.4 TOTAL PROTEIN 7.5 eGFR 80.7 CBC WITH AUTO DIFFERENTIAL - Abnormal Auto WBC 8.8 RBC 5.07 Hemoglobin 12.2 Hematocrit 40.0 MCV 78.9 (*) MCH 24.1 (*) MCHC 30.5 (*) RDW 17.2 (*) Platelets 355 MPV 10.0 Neutrophils Relative 81.6 (*) Lymphocytes Relative 6.6 (*) Monocytes Relative 9.3 Eosinophils Relative 1.4 Basophils Relative 0.5 Immature Grans % 0.6 (*) Neutrophils Absolute 7.2 (*) Lymphocytes Absolute 0.6 (*) Monocytes Absolute 0.8 Eosinophils Absolute 0.1 Basophils Absolute 0.0 Immature Grans Absolute 0.1 (*) LIPASE - Normal LIPASE 57 All other labs were within normal range or not returned as of thisdictation. EMERGENCYDEPARTMENT COURSE and DIFFERENTIAL DIAGNOSIS/MDM: Vitals: Vitals: 06/21/23 1054 06/21/23 1222 BP: 127/66 124/81 BP Location: Right arm Patient Position: Lying Pulse: 94 80 Resp: 16 Temp: 36.4 C (97.6 F) TempSrc: Oral SpO2: 95% Weight: 102 kg (225 lb) Medical Decision Making Problems Addressed: Generalized abdominal pain: complicated acute illness or injury Amount and/or Complexity of Data Reviewed Labs: ordered. Risk Prescription drug management. EMERGENCY DEPARTMENT COURSE and DIFFERENTIAL DIAGNOSIS/MDM: Vitals: Vitals: 06/21/23 1054 06/21/23 1222 BP: 127/66 124/81 BP Location: Right arm Patient Position: Lying Pulse: 94 80 Resp: 16 Temp: 36.4 C (97.6 F) TempSrc: Oral SpO2: 95% Weight: 102 kg (225 lb) The patient presented with a chief complaint of abdominal pain. The differential diagnosis associated with this patient's presentation includes bowel obstruction, hiatal hernia, diverticulitis, pancreatitis, undifferentiated abdominal pain, viral illness, dehydration, electrolyte disturbance. Our workup consisted of ordering/reviewing blood work. Labs reviewed. Microcytic indices but normal white blood cell count. Normal lipase. Glucose 142 otherwise normal CMP. Given 1 L IV fluids. 4 mg IV morphine and 4 mg IV Zofran. Repeat evaluation no rebound or guarding no peritoneal findings. Extensive review of her records from the [facility] admission and evaluation that she had in early June I do not believe any repeat imaging is indicated. I believe to be further worked up as an outpatient. Patient agrees to this. Return here if any problems or concerns. Diagnoses as of 06/21/23 1245 Generalized abdominal pain Diagnostics considered but not indicated based on history, physical, testing: CT and ultrasound however not clinically indicated based on review of records from [facility]. External records reviewed: Outpatient notes outpatient and inpatient records reviewed from admission include [facility] 06/15/2023. Radiologic diagnostics interpreted by me: film images such as CT, Ultrasound and MRI are read by the radiologist. Plain radiographic images are visualized and preliminarily interpreted by the emergency physician with the below findings: none Discussions with other clinicians: none Chronic conditions impacting care: Insomnia blood clot COPD exacerbation anxiety hiatal hernia diabetes patient had colonoscopy. Gallbladder removal. Hysterectomy. Social determinants of health affecting care: Patient smokes Shared decision making: Patient agrees to treatment plan Admission to the hospital considered : Considered placement in the hospital however she has had colonoscopy extensive work-up I believe she can be further worked up as an outpatient to follow-up with primary care physician and GI specialist. ED Medications managed: Medications sodium chloride 0.9 % bolus 1,000 mL (0 mL IntraVENous Stopped 06/21/23 1217) morphine injection 4 mg (4 mg IntraVENous Given 06/21/23 1126) ondansetron (Zofran) injection 4 mg (4 mg IntraVENous Given 06/21/23 1126) Prescription drugs considered: Bentyl 10 mg every 6 hours as needed for pain. Zofran 4 mg ODT every 6 hours as needed for nausea. PROCEDURES: Unless otherwise noted below, none Procedures IMPRESSION 1. Generalized abdominal pain DISPOSITION/PLAN DISPOSITION Discharge 06/21/2023 12:07:22 PM PATIENT REFERRED TO: Your doctor, Dr. Robledo In 2 days Your GI doctor In 1 week Call tomorrow to be seen next 1 to 2 weeks. DISCHARGE MEDICATIONS: Discharge Medication List as of 06/21/2023 12:10 PM START taking these medications Details dicyclomine (Bentyl) 10 MG capsule Take 1 capsule (10 mg) by mouth every 6 hours as needed (Abdominal pain) for up to 5 days., Starting Tue06/21/2023, Until Tue06/26/2023 at 2359, Normal ondansetron ODT (Zofran-ODT) 4 MG disintegrating tablet Take 1 tablet (4 mg) by mouth every 8 hours as needed for nausea or vomiting for up to 7 days., Starting Tue06/21/2023, Until Tue06/28/2023 at 2359, Normal @[facility]([id number]:LAST:1)@ (Comment: Please notethis report has been produced using speech recognition software and may contain errors related to that system including errors in grammar, punctuation, and spelling, as well as words and phrases that may be inappropriate.If there is any questions or concerns please feel free to contact the dictating provider for clarification). Tunde Patrick MD (electronically signed) Attending Emergency Physician Tunde Patrick MD 06/21/23 1245 [facility] 04-28-2023 Telephone encounter Note Last appointment 03/24/2023 , Next appointment is Visit date not found Last filled 02/02/23 90 tabs 1 refill [facility] 04-28-2023 Miscellaneous Notes Last appointment 03/24/2023 , Next appointment is Visit date not found Last filled 02/02/23 90 tabs 1 refill Medication name: glimepiride (Amaryl) 4 MG tablet Medication dosage: 4 mg (Miligrams Monthly quantity needed: 90 How many day supply requestin days Medication route: oral (PO) Medication administration time(s): 2 times a day (BID) If taking medication PRN, reason for taking medication: N/A If this is a controlled substance do you receive this or any other controlled medication from any other doctor or facility: N/A Ordering provider: Dr Salinas Date of last office visit: 03/24/23 Date of next office visit: 06/22/23 Date of last refill: (see medication tab): 02/02/23 Updated/Validated preferred pharmacy: yes Patient instructed to contact the pharmacy prior to picking up the medication: Yes documented in this encounter [facility] 04-28-2023 Telephone encounter Note Medication name: glimepiride (Amaryl) 4 MG tablet Medication dosage: 4 mg (Miligrams Monthly quantity needed: 90 How many day supply requestin days Medication route: oral (PO) Medication administration time(s): 2 times a day (BID) If taking medication PRN, reason for taking medication: N/A If this is a controlled substance do you receive this or any other controlled medication from any other doctor or facility: N/A Ordering provider: Dr Salinas Date of last office visit: 03/24/23 Date of next office visit: 06/22/23 Date of last refill: (see medication tab): 02/02/23 Updated/Validated preferred pharmacy: yes Patient instructed to contact the pharmacy prior to picking up the medication: Yes [facility] 03-24-2023 Evaluation + Plan note Associated Problem(s): Type 2 diabetes mellitus without complication, without long-term current use of insulin ([facility]) ([facility]) Controlled Farxiga, Amaryl, Tradjenta and metformin. [facility] 03-24-2023 Miscellaneous Notes Associated Problem(s): Type 2 diabetes mellitus without complication, without long-term current use of insulin (CMS/HCC) (HCC) Controlled Farxiga, Amaryl, Tradjenta and metformin. Associated Problem(s): Severe obesity (BMI 35.0-39.9) with comorbidity (HCC) Patient has lost another 2 pounds since last visit. Associated Problem(s): Pneumonia due to infectious organism Repeat chest x-ray. documented in this encounter [facility] 03-24-2023 Miscellaneous Notes Associated Problem(s): Type 2 diabetes mellitus without complication, without long-term current use of insulin (CMS/HCC) (HCC) Controlled Farxiga, Amaryl, Tradjenta and metformin. Associated Problem(s): Severe obesity (BMI 35.0-39.9) with comorbidity (HCC) Patient has lost another 2 pounds since last visit. Associated Problem(s): Pneumonia due to infectious organism Repeat chest x-ray. Addended by: NIRMALA BOX on: 04/12/2023 11:51 AM Modules accepted: Orders documented in this encounter [facility] 03-24-2023 Evaluation + Plan note Associated Problem(s): Severe obesity (BMI 35.0-39.9) with comorbidity (HCC) Patient has lost another 2 pounds since last visit. T [facility] 03-24-2023 Evaluation + Plan note Associated Problem(s): Pneumonia due to infectious organism Repeat chest x-ray. T [facility] 03-24-2023 History of Present illness Narrative Images from the original note were not included. . Visit type: Established patient Reason for Visit: Diabetes (HbA1c recheck) and Hospital Follow-up ([place] was seen in the ED on Feb 25 2023. She was diagnosed with pneumonia and a C. Diff infection. There was an abnormality on her XR so ED staff suggested she have a CT done.) Assessment and Plan 1. Type 2 diabetes mellitus without complication, without long-term current use of insulin ([facility]) ([facility]) Assessment & Plan: Controlled Farxiga, Amaryl, Tradjenta and metformin. Orders: - AMB POC HEMOGLOBIN A1C - metFORMIN (Glucophage) 1000 MG tablet; Take 1 tablet (1,000 mg) by mouth in the morning and 1 tablet (1,000 mg) in the evening. Take with meals., Starting Tue03/24/2023, Until Tue09/20/2023, Normal - dapagliflozin (Farxiga) 10 MG; Take 1 tablet (10 mg) by mouth daily (with breakfast)., Starting Tue03/24/2023, Normal - TSH - Lipid panel - Comprehensive metabolic panel - CBC - Microalbumin / creatinine, urine ratio 2. Severe obesity (BMI 35.0-39.9) with comorbidity ([facility]) Assessment & Plan: Patient has lost another 2 pounds since last visit. 3. Pneumonia due to infectious organism, unspecified laterality, unspecified part of lung Assessment & Plan: Repeat chest x-ray. Orders: - XR chest 2 views 4. Diarrhea, unspecified type - C. DIFFICILE by PCR with Reflex to EIA Follow up in about 4 months (around 07/24/2023). Subjective Diabetes She presents for her follow-up diabetic visit. She has type 2 diabetes mellitus. Her disease course has been improving. There are no hypoglycemic associated symptoms. Pertinent negatives for hypoglycemia include no dizziness. Pertinent negatives for diabetes include no chest pain, no fatigue, no polydipsia, no polyphagia, no polyuria and no weakness. There are no hypoglycemic complications. Symptoms are stable. Risk factors for coronary artery disease include tobacco exposure, sedentary lifestyle, post-menopausal, diabetes mellitus, hypertension and obesity. Current diabetic treatment includes oral agent (triple therapy) (Metformin was discontinued due to GI problems.). She is following a generally healthy diet. Meal planning includes avoidance of concentrated sweets. She rarely participates in exercise. Her home blood glucose trend is decreasing steadily. An RAMAKRISHNA inhibitor/angiotensin II receptor morris is being taken. Hypertension This is a chronic problem. The current episode started more than 1 year ago. The problem is unchanged. The problem is controlled. Pertinent negatives include no chest pain, palpitations, peripheral edema or shortness of breath. Risk factors for coronary artery disease include post-menopausal state. Past treatments include calcium channel blockers and angiotensin blockers. The current treatment provides significant improvement. Compliance problems include exercise and diet. Pneumonia She complains of chest tightness, cough and wheezing. There is no shortness of breath. The problem has been gradually improving. Pertinent negatives include no chest pain. Relieved by: Doxycycline. Her past medical history is significant for pneumonia. Diarrhea This is a new problem. The current episode started in the past 7 days. The stool consistency is described as Watery. The patient states that diarrhea awakens her from sleep. Associated symptoms include coughing. Risk factors include recent antibiotic use. Review of Systems Constitutional: Negative for fatigue. Respiratory: Positive for cough and wheezing. Negative for shortness of breath. Cardiovascular: Negative for chest pain and palpitations. Gastrointestinal: Positive for diarrhea. Endocrine: Negative for polydipsia, polyphagia and polyuria. Neurological: Negative for dizziness and weakness. Allergies Allergen Reactions Nsaids Anaphylaxis Sulfa Antibiotics Diarrhea Other reaction(s): GI Upset Sulfamethoxazole-Trimethoprim Diarrhea and Nausea And Vomiting Outpatient Medications Prior to Visit Medication Sig Dispense Refill amLODIPine (Norvasc) 10 MG tablet Take 1 tablet (10 mg) by mouth daily. 90 tablet 1 atorvastatin (Lipitor) 40 MG tablet TAKE TWO BY MOUTH EVERY OTHER DAY ALTERNATING WITH ONE EVERY OTHER DAY cholecalciferol (Vitamin D-3) 25 MCG (1000 UT) tablet Take 1,000 Units by mouth daily. clonazePAM (KlonoPIN) 0.5 MG tablet Take 0.5 mg by mouth in the morning and 0.5 mg in the evening. glimepiride (Amaryl) 4 MG tablet TAKE ONE BY MOUTH TWICE DAILY WITH MEALS 90 tablet 1 irbesartan (Avapro) 150 MG tablet Take 1 tablet (150 mg) by mouth daily. 90 tablet 1 linaGLIPtin (Tradjenta) 5 MG tablet Take 1 tablet (5 mg) by mouth daily. 90 tablet 1 mirtazapine (Remeron) 30 MG tablet Take 45 mg by mouth. omeprazole (PriLOSEC) [address] capsule Take 20 mg by mouth daily. PARoxetine (Paxil) 20 MG tablet Take 20 mg by mouth 2 times daily. dapagliflozin (Farxiga) 10 MG Take 1 tablet (10 mg) by mouth daily (with breakfast). 90 tablet 1 metFORMIN (Glucophage) 1000 MG tablet Take 1 tablet (1,000 mg) by mouth in the morning and 1 tablet (1,000 mg) in the evening. Take with meals. 180 tablet 1 methIMAzole (Tapazole) 10 MG tablet Take 2 tablets by mouth daily. No facility-administered medications prior to visit. Past Medical History: Diagnosis Date Alimentary obesity 04/03/2016 Anxiety Asthma Chronic low back pain 04/03/2016 COPD exacerbation (HCC) 06/11/2020 Depression Fatty liver 02/06/2015 GERD (gastroesophageal reflux disease) H/O ovarian cystectomy History of [facility] Hx of blood clots Hyperglycemia Hyperlipidemia Hypertension Insomnia 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 Noncompliance Osteoarthritis Pulmonary embolism (HCC) Thyroid disease Tobacco abuse Type II or unspecified type diabetes mellitus without mention of complication, not stated as uncontrolled (HCC) Weakness Social History Tobacco Use Smoking status: Every Day Packs/day: 0.50 Types: Cigarettes Smokeless tobacco: Never Substance Use Topics Alcohol use: No Past Surgical History: Procedure Laterality Date CATARACT EXTRACTION Left 2022 CHOLECYSTECTOMY COLONOSCOPY PLEURA BIOPSY 08/11/2021 VATs with thoracotomy resection of mediastinal mass TONSILLECTOMY (HISTORICAL) TOTAL ABDOMINAL HYSTERECTOMY Family History Problem Relation Name Age of Onset High Blood Pressure Father Arthritis Brother Hyperlipidemia Mother Diabetes Mother High Blood Pressure Mother Arthritis Mother Hyperlipidemia Father Objective BP 121/73 (BP Location: Right arm, Patient Position: Sitting) Pulse 77 Temp (!) 35.3 C (95.5 F) Ht 5' 5 (1.651 m) Wt 223 lb 1.6 oz (101 kg) BMI 37.13 kg/m Physical Exam Constitutional: Appearance: Normal appearance. She is obese. Neck: Vascular: No carotid bruit. Cardiovascular: Rate and Rhythm: Normal rate and regular rhythm. Heart sounds: Normal heart sounds. Pulmonary: Effort: Pulmonary effort is normal. Breath sounds: Normal breath sounds. Musculoskeletal: Cervical back: Neck supple. Neurological: Mental Status: She is alert and oriented to person, place, and time. Data Reviewed and Summarized Labs: Results for orders placed or performed in visit on 03/24/23 AMB POC HEMOGLOBIN A1C Result Value Ref Range Hemoglobin A1C 7.5 (A) 5.7 % Imaging/Testing: Anjana Salinas MD documented in this encounter [facility] 03-24-2023 History of Present illness Narrative Images from the original note were not included. . Visit type: Established patient Reason for Visit: Diabetes (HbA1c recheck) and Hospital Follow-up ([place] was seen in the ED on Feb 25 2023. She was diagnosed with pneumonia and a C. Diff infection. There was an abnormality on her XR so ED staff suggested she have a CT done.) Assessment and Plan 1. Type 2 diabetes mellitus without complication, without long-term current use of insulin ([facility]/HCC) ([facility]) Assessment & Plan: Controlled Farxiga, Amaryl, Tradjenta and metformin. Orders: - AMB POC HEMOGLOBIN A1C - metFORMIN (Glucophage) 1000 MG tablet; Take 1 tablet (1,000 mg) by mouth in the morning and 1 tablet (1,000 mg) in the evening. Take with meals., Starting Tue03/24/2023, Until Tue09/20/2023, Normal - dapagliflozin (Farxiga) 10 MG; Take 1 tablet (10 mg) by mouth daily (with breakfast)., Starting Lucina 03/24/2023, Normal - TSH - Lipid panel - Comprehensive metabolic panel - CBC - Microalbumin / creatinine, urine ratio 2. Severe obesity (BMI 35.0-39.9) with comorbidity ([facility]) Assessment & Plan: Patient has lost another 2 pounds since last visit. 3. Pneumonia due to infectious organism, unspecified laterality, unspecified part of lung Assessment & Plan: Repeat chest x-ray. Orders: - XR chest 2 views 4. Diarrhea, unspecified type - C. DIFFICILE by PCR with Reflex to EIA Follow up in about 4 months (around 07/24/2023). Subjective Diabetes She presents for her follow-up diabetic visit. She has type 2 diabetes mellitus. Her disease course has been improving. There are no hypoglycemic associated symptoms. Pertinent negatives for hypoglycemia include no dizziness. Pertinent negatives for diabetes include no chest pain, no fatigue, no polydipsia, no polyphagia, no polyuria and no weakness. There are no hypoglycemic complications. Symptoms are stable. Risk factors for coronary artery disease include tobacco exposure, sedentary lifestyle, post-menopausal, diabetes mellitus, hypertension and obesity. Current diabetic treatment includes oral agent (triple therapy) (Metformin was discontinued due to GI problems.). She is following a generally healthy diet. Meal planning includes avoidance of concentrated sweets. She rarely participates in exercise. Her home blood glucose trend is decreasing steadily. An RAMAKRISHNA inhibitor/angiotensin II receptor morris is being taken. Hypertension This is a chronic problem. The current episode started more than 1 year ago. The problem is unchanged. The problem is controlled. Pertinent negatives include no chest pain, palpitations, peripheral edema or shortness of breath. Risk factors for coronary artery disease include post-menopausal state. Past treatments include calcium channel blockers and angiotensin blockers. The current treatment provides significant improvement. Compliance problems include exercise and diet. Pneumonia She complains of chest tightness, cough and wheezing. There is no shortness of breath. The problem has been gradually improving. Pertinent negatives include no chest pain. Relieved by: Doxycycline. Her past medical history is significant for pneumonia. Diarrhea This is a new problem. The current episode started in the past 7 days. The stool consistency is described as Watery. The patient states that diarrhea awakens her from sleep. Associated symptoms include coughing. Risk factors include recent antibiotic use. Review of Systems Constitutional: Negative for fatigue. Respiratory: Positive for cough and wheezing. Negative for shortness of breath. Cardiovascular: Negative for chest pain and palpitations. Gastrointestinal: Positive for diarrhea. Endocrine: Negative for polydipsia, polyphagia and polyuria. Neurological: Negative for dizziness and weakness. Allergies Allergen Reactions Nsaids Anaphylaxis Sulfa Antibiotics Diarrhea Other reaction(s): GI Upset Sulfamethoxazole-Trimethoprim Diarrhea and Nausea And Vomiting Outpatient Medications Prior to Visit Medication Sig Dispense Refill amLODIPine (Norvasc) 10 MG tablet Take 1 tablet (10 mg) by mouth daily. 90 tablet 1 atorvastatin (Lipitor) 40 MG tablet TAKE TWO BY MOUTH EVERY OTHER DAY ALTERNATING WITH ONE EVERY OTHER DAY cholecalciferol (Vitamin D-3) 25 MCG (1000 UT) tablet Take 1,000 Units by mouth daily. clonazePAM (KlonoPIN) 0.5 MG tablet Take 0.5 mg by mouth in the morning and 0.5 mg in the evening. glimepiride (Amaryl) 4 MG tablet TAKE ONE BY MOUTH TWICE DAILY WITH MEALS 90 tablet 1 irbesartan (Avapro) 150 MG tablet Take 1 tablet (150 mg) by mouth daily. 90 tablet 1 linaGLIPtin (Tradjenta) 5 MG tablet Take 1 tablet (5 mg) by mouth daily. 90 tablet 1 mirtazapine (Remeron) 30 MG tablet Take 45 mg by mouth. omeprazole (PriLOSEC) [address] capsule Take 20 mg by mouth daily. PARoxetine (Paxil) 20 MG tablet Take 20 mg by mouth 2 times daily. dapagliflozin (Farxiga) 10 MG Take 1 tablet (10 mg) by mouth daily (with breakfast). 90 tablet 1 metFORMIN (Glucophage) 1000 MG tablet Take 1 tablet (1,000 mg) by mouth in the morning and 1 tablet (1,000 mg) in the evening. Take with meals. 180 tablet 1 methIMAzole (Tapazole) 10 MG tablet Take 2 tablets by mouth daily. No facility-administered medications prior to visit. 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 Noncompliance Osteoarthritis Pulmonary embolism (HCC) Thyroid disease Tobacco abuse Type II or unspecified type diabetes mellitus without mention of complication, not stated as uncontrolled (HCC) Weakness Social History Tobacco Use Smoking status: Every Day Packs/day: 0.50 Types: Cigarettes Smokeless tobacco: Never Substance Use Topics Alcohol use: No Past Surgical History: Procedure Laterality Date CATARACT EXTRACTION Left 2022 CHOLECYSTECTOMY COLONOSCOPY PLEURA BIOPSY 08/11/2021 VATs with thoracotomy resection of mediastinal mass TONSILLECTOMY (HISTORICAL) TOTAL ABDOMINAL HYSTERECTOMY Family History Problem Relation Name Age of Onset High Blood Pressure Father Arthritis Brother Hyperlipidemia Mother Diabetes Mother High Blood Pressure Mother Arthritis Mother Hyperlipidemia Father Objective BP 121/73 (BP Location: Right arm, Patient Position: Sitting) Pulse 77 Temp (!) 35.3 C (95.5 F) Ht 5' 5 (1.651 m) Wt 223 lb 1.6 oz (101 kg) BMI 37.13 kg/m Physical Exam Constitutional: Appearance: Normal appearance. She is obese. Neck: Vascular: No carotid bruit. Cardiovascular: Rate and Rhythm: Normal rate and regular rhythm. Heart sounds: Normal heart sounds. Pulmonary: Effort: Pulmonary effort is normal. Breath sounds: Normal breath sounds. Musculoskeletal: Cervical back: Neck supple. Neurological: Mental Status: She is alert and oriented to person, place, and time. Data Reviewed and Summarized Labs: Results for orders placed or performed in visit on 03/24/23 AMB POC HEMOGLOBIN A1C Result Value Ref Range Hemoglobin A1C 7.5 (A) 5.7 % Imaging/Testing: Anjana Salinas MD documented in this encounter [facility] 03-24-2023 Note Addended by: NIRMALA BOX on: 04/12/2023 11:51 AM Modules accepted: Orders [facility] 11-16-2022 Evaluation + Plan note Associated Problem(s): Type 2 diabetes mellitus without complication, without long-term current use of insulin (CMS/HCC) ([facility]) Improving on metformin, Farxiga, glimepiride and Tradjenta. [facility] 11-16-2022 Miscellaneous Notes Associated Problem(s): Type 2 diabetes mellitus without complication, without long-term current use of insulin (CMS/HCC) ([facility]) Improving on metformin, Farxiga, glimepiride and Tradjenta. Associated Problem(s): Essential hypertension, benign Controlled on amlodipine and irbesartan. documented in this encounter [facility] 11-16-2022 Evaluation + Plan note Associated Problem(s): Essential hypertension, benign Controlled on amlodipine and irbesartan. [facility] 11-16-2022 History of Present illness Narrative Images from the original note were not included. . Visit type: Established patient Reason for Visit: Diabetes Assessment and Plan 1. Type 2 diabetes mellitus without complication, without long-term current use of insulin ([facility]) ([facility]) Assessment & Plan: Improving on metformin, Farxiga, glimepiride and Tradjenta. Orders: - AMB POC HEMOGLOBIN A1C 2. Essential hypertension, benign Assessment & Plan: Controlled on amlodipine and irbesartan. Orders: - amLODIPine (Norvasc) 10 MG tablet; Take 1 tablet (10 mg) by mouth daily., Starting Tue11/16/2022, Until Tue02/14/2023, Normal - irbesartan (Avapro) 150 MG tablet; Take 1 tablet (150 mg) by mouth daily., Starting Tue11/16/2022, Until Tue02/14/2023, Normal Follow up in about 4 months (around 03/18/2023) for Recheck, diabetes. Subjective Diabetes She presents for her follow-up diabetic visit. She has type 2 diabetes mellitus. Her disease course has been improving. There are no hypoglycemic associated symptoms. Pertinent negatives for hypoglycemia include no dizziness. Pertinent negatives for diabetes include no chest pain, no fatigue, no polydipsia, no polyphagia, no polyuria and no weakness. There are no hypoglycemic complications. Symptoms are stable. Risk factors for coronary artery disease include tobacco exposure, sedentary lifestyle, post-menopausal, diabetes mellitus, hypertension and obesity. Current diabetic treatment includes oral agent (triple therapy) (Metformin was discontinued due to GI problems.). She is following a generally healthy diet. Meal planning includes avoidance of concentrated sweets. She rarely participates in exercise. An RAMAKRISHNA inhibitor/angiotensin II receptor morris is being taken. Hypertension This is a chronic problem. The current episode started more than 1 year ago. The problem is unchanged. The problem is controlled. Pertinent negatives include no chest pain, palpitations, peripheral edema or shortness of breath. Risk factors for coronary artery disease include post-menopausal state. Past treatments include calcium channel blockers and angiotensin blockers. The current treatment provides significant improvement. Compliance problems include exercise and diet. Review of Systems Constitutional: Negative for fatigue. Respiratory: Negative for shortness of breath. Cardiovascular: Negative for chest pain and palpitations. Endocrine: Negative for polydipsia, polyphagia and polyuria. Neurological: Negative for dizziness and weakness. Allergies Allergen Reactions Nsaids Anaphylaxis Sulfa Antibiotics Diarrhea Other reaction(s): GI Upset Sulfamethoxazole-Trimethoprim Diarrhea and Nausea And Vomiting Outpatient Medications Prior to Visit Medication Sig Dispense Refill atorvastatin (Lipitor) 40 MG tablet TAKE TWO BY MOUTH EVERY OTHER DAY ALTERNATING WITH ONE EVERY OTHER DAY cholecalciferol (Vitamin D-3) 25 MCG (1000 UT) tablet Take 1,000 Units by mouth daily. clonazePAM (KlonoPIN) 0.5 MG tablet Take 0.5 mg by mouth in the morning and 0.5 mg in the evening. dapagliflozin (Farxiga) 10 MG Take 1 tablet (10 mg) by mouth daily (with breakfast). 90 tablet 1 glimepiride (Amaryl) 4 MG tablet TAKE ONE BY MOUTH TWICE DAILY WITH MEALS linaGLIPtin (Tradjenta) 5 MG tablet Take 1 tablet (5 mg) by mouth daily. 90 tablet 1 metFORMIN (Glucophage) 1000 MG tablet Take 1 tablet (1,000 mg) by mouth in the morning and 1 tablet (1,000 mg) in the evening. Take with meals. 180 tablet 1 mirtazapine (Remeron) 30 MG tablet Take 45 mg by mouth. omeprazole (PriLOSEC) [address] capsule Take 20 mg by mouth daily. PARoxetine (Paxil) 20 MG tablet Take 20 mg by mouth 2 times daily. amLODIPine (Norvasc) 10 MG tablet Take 1 tablet (10 mg) by mouth daily. 90 tablet 1 irbesartan (Avapro) 150 MG tablet Take 1 tablet (150 mg) by mouth daily. 90 tablet 1 methIMAzole (Tapazole) 10 MG tablet Take 2 tablets by mouth daily. No facility-administered medications prior to visit. Past Medical History: Diagnosis Date Alimentary obesity 04/03/2016 Anxiety Asthma Chronic low back pain 04/03/2016 COPD exacerbation (HCC) 06/11/2020 Depression Fatty liver 02/06/2015 GERD (gastroesophageal reflux disease) H/O ovarian cystectomy History of [facility] Hx of blood clots Hyperglycemia Hyperlipidemia Hypertension Insomnia 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 Noncompliance Osteoarthritis Pulmonary embolism (HCC) Thyroid disease Tobacco abuse Type II or unspecified type diabetes mellitus without mention of complication, not stated as uncontrolled (HCC) Weakness Social History Tobacco Use Smoking status: Every Day Packs/day: 0.50 Types: Cigarettes Smokeless tobacco: Never Substance Use Topics Alcohol use: No Past Surgical History: Procedure Laterality Date CATARACT EXTRACTION Left 2022 CHOLECYSTECTOMY COLONOSCOPY PLEURA BIOPSY 08/11/2021 VATs with thoracotomy resection of mediastinal mass TONSILLECTOMY (HISTORICAL) TOTAL ABDOMINAL HYSTERECTOMY Family History Problem Relation Name Age of Onset High Blood Pressure Father Arthritis Brother Hyperlipidemia Mother Diabetes Mother High Blood Pressure Mother Arthritis Mother Hyperlipidemia Father Objective BP 113/72 (BP Location: Right arm, Patient Position: Sitting, BP Cuff Size: Adult long) Pulse 86 Temp 36.3 C (97.3 F) (Temporal) Ht 5' 5 (1.651 m) Wt 225 lb 12.8 oz (102 kg) BMI 37.58 kg/m Physical Exam Constitutional: Appearance: Normal appearance. She is obese. Neck: Vascular: No carotid bruit. Cardiovascular: Rate and Rhythm: Normal rate and regular rhythm. Heart sounds: Normal heart sounds. Pulmonary: Effort: Pulmonary effort is normal. Breath sounds: Normal breath sounds. Musculoskeletal: Cervical back: Neck supple. Neurological: Mental Status: She is alert and oriented to person, place, and time. Data Reviewed and Summarized Labs: Results for orders placed or performed in visit on 11/16/22 AMB POC HEMOGLOBIN A1C Result Value Ref Range Hemoglobin A1C 8.1 (A) 4.4 - 6.5 % Imaging/Testing: Anjana Salinas MD documented in this encounter [facility] 10-26-2022 Telephone encounter Note Pt called in requesting refills for farxiga. She states rybelsus caused her to be sicker than a dog. Order pend. Pt is not checking her blood sugar but feels she is doing better with her diet. She is aware of upcoming appointment. Please review and advise [facility] 10-26-2022 Miscellaneous Notes Pt called in requesting refills for farxiga. She states rybelsus caused her to be sicker than a dog. Order pend. Pt is not checking her blood sugar but feels she is doing better with her diet. She is aware of upcoming appointment. Please review and advise documented in this encounter [facility] 08-18-2022 Evaluation + Plan note Associated Problem(s): Type 2 diabetes mellitus without complication, without long-term current use of insulin (CMS/HCC) (HCC) Uncontrolled on Farxiga, Amaryl and Tradjenta. Patient willing to try metformin again because she did not feel previous episode of diarrhea was associated with the metformin but with antibiotics that she had. Increase fruits and vegetables and decrease carbohydrates and meats. Exercise 30 minutes daily. [facility] 08-18-2022 Miscellaneous Notes Associated Problem(s): Type 2 diabetes mellitus without complication, without long-term current use of insulin (CMS/HCC) (HCC) Uncontrolled on Farxiga, Amaryl and Tradjenta. Patient willing to try metformin again because she did not feel previous episode of diarrhea was associated with the metformin but with antibiotics that she had. Increase fruits and vegetables and decrease carbohydrates and meats. Exercise 30 minutes daily. Associated Problem(s): Essential hypertension, benign Controlled on amlodipine and Avapro. documented in this encounter [facility] 08-18-2022 Evaluation + Plan note Associated Problem(s): Essential hypertension, benign Controlled on amlodipine and Avapro. [facility] 08-18-2022 History of Present illness Narrative Images from the original note were not included. . Visit type: Established patient Reason for Visit: Follow-up and Diabetes Assessment and Plan 1. Type 2 diabetes mellitus without complication, without long-term current use of insulin (CMS/HCC) ([facility]) Assessment & Plan: Uncontrolled on Farxiga, Amaryl and Tradjenta. Patient willing to try metformin again because she did not feel previous episode of diarrhea was associated with the metformin but with antibiotics that she had. Increase fruits and vegetables and decrease carbohydrates and meats. Exercise 30 minutes daily. Orders: - AMB POC HEMOGLOBIN A1C - metFORMIN (Glucophage) 1000 MG tablet; Take 1 tablet (1,000 mg) by mouth in the morning and 1 tablet (1,000 mg) in the evening. Take with meals., Starting Tue08/18/2022, Until Tue11/16/2022, Normal - linaGLIPtin (Tradjenta) 5 MG tablet; Take 1 tablet (5 mg) by mouth daily., Starting Tue08/18/2022, Until Tue11/16/2022, Normal 2. Essential hypertension, benign Assessment & Plan: Controlled on amlodipine and Avapro. Orders: - irbesartan (Avapro) 150 MG tablet; Take 1 tablet (150 mg) by mouth daily., Starting Tue08/18/2022, Until Tue11/16/2022, Normal - amLODIPine (Norvasc) 10 MG tablet; Take 1 tablet (10 mg) by mouth daily., Starting Tue08/18/2022, Until Tue11/16/2022, Normal 3. Need for influenza vaccination - Flu vaccine greater than or equal to 3 years old, preservative free IM Follow up in about 3 months (around 11/16/2022) for diabetes, hypertension. Subjective Diabetes She presents for her follow-up diabetic visit. She has type 2 diabetes mellitus. Her disease course has been worsening. There are no hypoglycemic associated symptoms. Pertinent negatives for hypoglycemia include no dizziness. Pertinent negatives for diabetes include no chest pain, no fatigue, no polydipsia, no polyphagia, no polyuria and no weakness. Symptoms are stable. Risk factors for coronary artery disease include tobacco exposure, sedentary lifestyle, post-menopausal, diabetes mellitus, hypertension and obesity. Current diabetic treatment includes oral agent (triple therapy) (Metformin was discontinued due to GI problems.). She is following a generally healthy diet. Meal planning includes avoidance of concentrated sweets. She rarely participates in exercise. An RAMAKRISHNA inhibitor/angiotensin II receptor morris is being taken. Hypertension This is a chronic problem. The current episode started more than 1 year ago. The problem is unchanged. The problem is controlled. Pertinent negatives include no chest pain, palpitations, peripheral edema or shortness of breath. Risk factors for coronary artery disease include post-menopausal state. Past treatments include calcium channel blockers and angiotensin blockers. The current treatment provides significant improvement. Compliance problems include exercise and diet. Review of Systems Constitutional: Negative for activity change, appetite change, fatigue and unexpected weight change. Respiratory: Negative for chest tightness and shortness of breath. Cardiovascular: Negative for chest pain, palpitations and leg swelling. Endocrine: Negative for polydipsia, polyphagia and polyuria. Neurological: Negative for dizziness, weakness and numbness. Allergies Allergen Reactions Nsaids Anaphylaxis Sulfa Antibiotics Diarrhea Other reaction(s): GI Upset Sulfamethoxazole-Trimethoprim Diarrhea and Nausea And Vomiting Outpatient Medications Prior to Visit Medication Sig Dispense Refill atorvastatin (Lipitor) 40 MG tablet TAKE TWO BY MOUTH EVERY OTHER DAY ALTERNATING WITH ONE EVERY OTHER DAY cholecalciferol (Vitamin D-3) 25 MCG (1000 UT) tablet Take 1,000 Units by mouth daily. clonazePAM (KlonoPIN) 0.5 MG tablet Take 0.5 mg by mouth in the morning and 0.5 mg in the evening. dapagliflozin (Farxiga) 10 MG Take 10 mg by mouth daily (with breakfast). glimepiride (Amaryl) 4 MG tablet TAKE ONE BY MOUTH TWICE DAILY WITH MEALS methIMAzole (Tapazole) 10 MG tablet Take 2 tablets by mouth daily. mirtazapine (Remeron) 30 MG tablet Take 45 mg by mouth. omeprazole (PriLOSEC) [address] capsule Take 20 mg by mouth daily. PARoxetine (Paxil) 20 MG tablet Take 20 mg by mouth 2 times daily. amLODIPine (Norvasc) 10 MG tablet Take 1 tablet by mouth daily. irbesartan (Avapro) 150 MG tablet TAKE ONE BY MOUTH EVERY NIGHT linaGLIPtin (Tradjenta) 5 MG tablet TAKE ONE BY MOUTH DAILY No facility-administered medications prior to visit. Past Medical History: Diagnosis Date Alimentary obesity 04/03/2016 Anxiety Asthma Chronic low back pain 04/03/2016 COPD exacerbation (CMS/HCC) (HCC) 06/11/2020 Depression Fatty liver 02/06/2015 GERD (gastroesophageal reflux disease) H/O ovarian cystectomy History of [facility] Hx of blood clots Hyperglycemia Hyperlipidemia Hypertension Insomnia 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 Noncompliance Osteoarthritis Pulmonary embolism (HCC) Thyroid disease Tobacco abuse Type II or unspecified type diabetes mellitus without mention of complication, not stated as uncontrolled (HCC) Weakness Social History Tobacco Use Smoking status: Every Day Packs/day: 0.50 Types: Cigarettes Smokeless tobacco: Never Substance Use Topics Alcohol use: No Past Surgical History: Procedure Laterality Date CHOLECYSTECTOMY COLONOSCOPY PLEURA BIOPSY 08/11/2021 VATs with thoracotomy resection of mediastinal mass TONSILLECTOMY (HISTORICAL) TOTAL ABDOMINAL HYSTERECTOMY Family History Problem Relation Name Age of Onset High Blood Pressure Father Arthritis Brother Hyperlipidemia Mother Diabetes Mother High Blood Pressure Mother Arthritis Mother Hyperlipidemia Father Objective BP 111/70 (BP Location: Left arm) Pulse 79 Temp 36.2 C (97.1 F) Resp 17 Ht 5' 5 (1.651 m) Wt 233 lb 14.4 oz (106 kg) BMI 38.92 kg/m Physical Exam Constitutional: Appearance: Normal appearance. She is obese. Neck: Vascular: No carotid bruit. Cardiovascular: Rate and Rhythm: Normal rate and regular rhythm. Heart sounds: Normal heart sounds. Pulmonary: Effort: Pulmonary effort is normal. Breath sounds: Normal breath sounds. Musculoskeletal: Cervical back: Neck supple. Neurological: Mental Status: She is alert and oriented to person, place, and time. Data Reviewed and Summarized Labs: Results for orders placed or performed in visit on 08/18/22 AMB POC HEMOGLOBIN A1C Result Value Ref Range Hemoglobin A1C 10.0 Imaging/Testing: Anjana Salinas MD The patient, Thea Dorman, identity was verified by name and . Procedure explained to patient. Received verbal consent. I obtained a blood sample from the patient. A POCT Hemoglobin A1C was performed as ordered by Dr. Salinas. Results entered for provider for review. Thea Dorman tolerated procedure well. The patient, Thea Alcala, identity was verified by name and . Influenza VIS (s) given to patient for review prior to immunization administration. Received informed consent to proceed with Influenza immunization (s). Immunization (s) given as ordered by Dr. Salinas. Thea Dorman waited 15 minutes after injection, tolerated procedure well. documented in this encounter [facility] 04-14-2022 Hospital Discharge instructions Nicko Thomas MD - 04/14/2022 7:42 PM EDT Please return to the Emergency Department immediately for new or worsening symptoms or any new concerns. This includes failure to begin to improve after 2-3 days of antibiotics, or if symptoms progress despite antibiotics. Please complete course of antibiotics as prescribed. Please follow-up with [your primary care doctor] in the next [3-5] days. The following attachments cannot be sent through Care Everywhere.URI (Upper Respiratory Infection) ([place])UTI (Urinary Tract Infection): Female ([place])Diarrhea ([place])documented in this encounter [employer] Phone: 12-21-2021 Miscellaneous Notes Requester: Pharmacy Last Visit in Endocrinology: Provider name: Sae Shultz MD , Date 03/09/2021 Next Scheduled Appt in Endo: Visit date not found Last Refill: 3 Number of Refills given: 3 PSS NOTE: Patient needs scheduled appointment will reach out to schedule appt Pending Prescriptions Disp Refills METHIMAZOLE 10 MG TABLET 360 tablet 3 Sig: TAKE TWO BY MOUTH TWICE DAILY ISA: Yes Please review and advise. Yamilet Valle LPN documented in this encounter [facility] 08-18-2021 Note [facility] Discharge Summary and Transition Note Thea Dorman : 1965 ADMIT DATE: 08/11/2021 DISCHARGE DATE: 08/18/2021 PRIMARY CARE PHYSICIAN: Anjana Salinas MD VISIT STATUS: Admission CODE STATUS: Full Code DISCHARGE DIAGNOSES: Principal Problem: Pneumonia due to COVID-19 virus Active Problems: Episode of recurrent major depressive disorder (HCC) Essential hypertension, benign Current smoker Type 2 diabetes mellitus without complication, without long-term current use of insulin (HCC) Hyperlipidemia Hypoxia Morbidly obese (HCC) Graves disease Mediastinal mass Resolved Problems: * No resolved hospital problems. * HOSPITAL COURSE: Thea Dorman is a 56 y.o. female with history of HTN, HLD, Graves disease, tobacco use, DM2, morbid obesity, depression who was admitted to cardiothoracic service for elective procedure for mediastinal mass. She underwent VATs with thoracotomy for resection 08/11/2021, pathology pending. She recovered well post operative, and chest tube was removed 08/13. Was persistently on 4-5L O2.. CXR showed bibasilar infiltrates, she is found to be Covid +08/14 (preop Covid test 08/06 neg). She is unvaccinated. Transferred to Covid service for further evaluation and treatment of Covid pneumonia acute hypoxic respiratory insufficiency. Started on remdesivir and dexamethasone Covid pneumonia Acute hypoxic respiratory insufficiency -Symptom onset unclear, hypoxia noted after surgery 08/11. Covid +08/14. Unvaccinated -CXR: Bibasilar infiltrates -FiO2: 3-4 LNC -Remdesivir day 5 today -Dexamethasone day 5 today - will need steroid taper on discharge as she is still requiring O2 -Home O2 eval and nebulizer DME ordered Patient refused home O2 eval and refused to wear oxygen at home on discharge despite attempts to convince her by staff. ? S/p VATS--> thoracotomy for mediastinal mass resection 08/11 -Chest tube removed 08/13 -CTS signed off, recommend OP f/u Dr Penny -Path-no significant malignant cells noted -Needs stitches removed on follow up ? HTN/HLD - Cont amlodipine, statin. Resume ARB on dc. No longer taking BB ? Graves' disease - Cont MMA, follows with endo OP ? DM2 - Resume home farxiga, glimeperide, tradjenta on dc - Endocrinology consulted given high glucose levels and new insulin requirement; will be discharged on insulin NPH taper dose as well as her orals ? BMI> 40 ? Depression/anxiety - Cont paxil, remeron, klonopin ? 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 Start taking on: August 18, 2021 ipratropium-albuterol 0.5-2.5 (3) MG/3ML Soln nebulizer solution Commonly known as: DUONEB Inhale 3 mLs into the lungs 2 times daily [employer] Pen Reading 29G 29G X 12MM Misc Generic drug: Insulin Pen Needle 1 each by Does not apply route daily oxyCODONE 5 MG immediate release tablet Commonly known as: ROXICODONE Take 0.5-1 tablets by mouth every 4 hours as needed for Pain for up to 3 days. predniSONE 20 MG tablet Commonly known as: DELTASONE Take 2 tablets by mouth daily for 2 days, THEN 1.5 tablets daily for 2 days, THEN 1 tablet daily for 2 days, THEN 0.5 tablets daily for 2 days. Start taking on: August 18, 2021 sennosides-docusate sodium 8.6-50 MG tablet Commonly known as: SENOKOT-S Take 1 tablet by mouth daily CONTINUE taking these medications acetaminophen 500 MG tablet Commonly known as: TYLENOL amLODIPine 10 MG tablet Commonly known as: NORVASC TAKE ONE BY MOUTH DAILY atorvastatin 40 MG tablet Commonly known as: LIPITOR TAKE TWO BY MOUTH EVERY OTHER DAY ALTERNATING WITH ONE EVERY OTHER DAY dapagliflozin 10 MG tablet Commonly known as: FARXIGA Take 1 tablet by mouth every morning glimepiride 4 MG tablet Commonly known as: AMARYL TAKE ONE BY MOUTH TWICE DAILY WITH MEALS irbesartan 150 MG tablet Commonly known as: AVAPRO TAKE ONE BY MOUTH EVERY NIGHT KlonoPIN 2 MG tablet Generic drug: clonazePAM methIMAzole 10 MG tablet Commonly known as: TAPAZOLE Take 2 tablets by mouth daily OXYGEN Paxil 20 MG tablet Generic drug: PARoxetine PriLOSEC 20 MG delayed release capsule Generic drug: omeprazole Remeron SolTab 30 MG disintegrating tablet Generic drug: mirtazapine Tradjenta 5 MG tablet Generic drug: linagliptin TAKE ONE BY MOUTH DAILY vitamin D 1000 UNIT Tabs tablet Commonly known as: CHOLECALCIFEROL Where to Get Your Medications These medications were sent to [facility] [place] (more content not included)... [facility] 08-18-2021 Hospital course Narrative Images from the original note were not included. [facility] Discharge Summary and Transition Note Thea Dorman : 1965 ADMIT DATE: 08/11/2021 DISCHARGE DATE: 08/18/2021 PRIMARY CARE PHYSICIAN: Anjana Salinas MD VISIT STATUS: Admission CODE STATUS: Full Code DISCHARGE DIAGNOSES: Principal Problem: Pneumonia due to COVID-19 virus Active Problems: Episode of recurrent major depressive disorder (HCC) Essential hypertension, benign Current smoker Type 2 diabetes mellitus without complication, without long-term current use of insulin (HCC) Hyperlipidemia Hypoxia Morbidly obese (HCC) Graves disease Mediastinal mass Resolved Problems: * No resolved hospital problems. * HOSPITAL COURSE: Thea Dorman is a 56 y.o. female with history of HTN, HLD, Graves disease, tobacco use, DM2, morbid obesity, depression who was admitted to cardiothoracic service for elective procedure for mediastinal mass. She underwent VATs with thoracotomy for resection 08/11/2021, pathology pending. She recovered well post operative, and chest tube was removed 08/13. Was persistently on 4-5L O2.. CXR showed bibasilar infiltrates, she is found to be Covid +08/14 (preop Covid test 08/06 neg). She is unvaccinated. Transferred to Covid service for further evaluation and treatment of Covid pneumonia acute hypoxic respiratory insufficiency. Started on remdesivir and dexamethasone Covid pneumonia Acute hypoxic respiratory insufficiency -Symptom onset unclear, hypoxia noted after surgery 08/11. Covid +08/14. Unvaccinated -CXR: Bibasilar infiltrates -FiO2: 3-4 LNC -Remdesivir day 5 today -Dexamethasone day 5 today - will need steroid taper on discharge as she is still requiring O2 -Home O2 eval and nebulizer DME ordered Patient refused home O2 eval and refused to wear oxygen at home on discharge despite attempts to convince her by staff. S/p VATS--> thoracotomy for mediastinal mass resection 08/11 -Chest tube removed 08/13 -CTS signed off, recommend OP f/u Dr Penny -Path-no significant malignant cells noted -Needs stitches removed on follow up HTN/HLD - Cont amlodipine, statin. Resume ARB on dc. No longer taking BB Graves' disease - Cont MMA, follows with endo OP DM2 - Resume home farxiga, glimeperide, tradjenta on dc - Endocrinology consulted given high glucose levels and new insulin requirement; will be discharged on insulin NPH taper dose as well as her orals BMI> 40 Depression/anxiety - Cont paxil, remeron, klonopin Tobacco use disorder - Encourage cessation CONSULTANTS: [employer] stewardship CTS Endocrinology DISCHARGE MEDICATIONS: Significant Medication Changes: Medication List START taking these medications HumuLIN N KwikPen 100 UNIT/ML injection pen Generic drug: insulin NPH Inject 20 Units into the skin every morning for 2 days, THEN 15 Units every morning for 2 days, THEN 10 Units every morning for 2 days, THEN 5 Units every morning for 2 days. Start taking on: August 18, 2021 ipratropium-albuterol 0.5-2.5 (3) MG/3ML Soln nebulizer solution Commonly known as: DUONEB Inhale 3 mLs into the lungs 2 times daily [employer] Pen Reading 29G 29G X 12MM Misc Generic drug: Insulin Pen Needle 1 each by Does not apply route daily oxyCODONE 5 MG immediate release tablet Commonly known as: ROXICODONE Take 0.5-1 tablets by mouth every 4 hours as needed for Pain for up to 3 days. predniSONE 20 MG tablet Commonly known as: DELTASONE Take 2 tablets by mouth daily for 2 days, THEN 1.5 tablets daily for 2 days, THEN 1 tablet daily for 2 days, THEN 0.5 tablets daily for 2 days. Start taking on: August 18, 2021 sennosides-docusate sodium 8.6-50 MG tablet Commonly known as: SENOKOT-S Take 1 tablet by mouth daily CONTINUE taking these medications acetaminophen 500 MG tablet Commonly known as: TYLENOL amLODIPine 10 MG tablet Commonly known as: NORVASC TAKE ONE BY MOUTH DAILY atorvastatin 40 MG tablet Commonly known as: LIPITOR TAKE TWO BY MOUTH EVERY OTHER DAY ALTERNATING WITH ONE EVERY OTHER DAY dapagliflozin 10 MG tablet Commonly known as: FARXIGA Take 1 tablet by mouth every morning glimepiride 4 MG tablet Commonly known as: AMARYL TAKE ONE BY MOUTH TWICE DAILY WITH MEALS irbesartan 150 MG tablet Commonly known as: AVAPRO TAKE ONE BY MOUTH EVERY NIGHT KlonoPIN 2 MG tablet Generic drug: clonazePAM methIMAzole 10 MG tablet Commonly known as: TAPAZOLE Take 2 tablets by mouth daily OXYGEN Paxil 20 MG tablet Generic drug: PARoxetine PriLOSEC 20 MG delayed release capsule Generic drug: omeprazole Remeron SolTab 30 MG disintegrating tablet Generic drug: mirtazapine Tradjenta 5 MG tablet Generic drug: linagliptin TAKE ONE BY MOUTH DAILY vitamin D 1000 UNIT Tabs tablet Commonly known as: CHOLECALCIFEROL Where to Get Your Medications These medications were sent to [facility] [address] - [phone] - [phone] [place] [id number] atorvastatin 40 MG tablet glimepiride 4 MG tablet HumuLIN N KwikPen 100 UNIT/ML injection pen ipratropium-albuterol 0.5-2.5 (3) MG/3ML Soln nebulizer solution [employer] Pen Reading 29G 29G X 12MM Misc methIMAzole 10 MG tablet predniSONE 20 MG tablet sennosides-docusate sodium 8.6-50 MG tablet You can get these medications from any pharmacy Bring a paper prescription for each of these medications oxyCODONE 5 MG immediate release tablet DIET: cardiac ACTIVITY: resume regular activity COMPLEXITY OF FOLLOW UP: [] Moderate Complexity: follow up within 7-14 calendar days (90875) [x] Severe Complexity: follow up within 7 calendar days (19873) FOLLOW UP TESTING, PENDING RESULTS OR REFERRALS AT TRANSITIONAL CARE VISIT: [x] Yes [] No DISPOSITION: Home FACILITY/HOME CARE AGENCY NAME: N/A Follow up with Anjana Salinas MD scheduled Notification (telephone encounter) to PCP initiated: [x] Yes [] No INSTRUCTIONS TO MA/SW: Please call patient on day after discharge (must document patient contacted within 2 business days of discharge). FOLLOW UP QUESTIONS FOR MA/SW: 1. Did you get medications filled and taking them as instructed from discharge? 2. Are you following your discharge instructions from your hospital stay? 3. Please confirm patient is scheduled for a follow up appointment within the above time frame. DISCHARGE TIME: > 30 minutes documented in this encounter [employer] Phone: 08-18-2021 History of Present illness Narrative Images from the original note were not included. [facility] Hospitalist Progress Note Thea Dorman : 1965(56 y.o.) Date: 08/18/21 Subjective: ChiefComplaint: shortness of breath HPI Thea Dorman is a 56 y.o. female with history of HTN, HLD, Graves disease, tobacco use, DM2, morbid obesity, depression who was admitted to cardiothoracic service for elective procedure for mediastinal mass. She underwent VATs with thoracotomy for resection 08/11/2021, pathology pending. She recovered well post operative, and chest tube was removed 08/13. Was persistently on 4-5L O2.. CXR showed bibasilar infiltrates, she is found to be Covid +08/14 (preop Covid test 08/06 neg). She is unvaccinated. Transferred to Covid service for further evaluation and treatment of Covid pneumonia acute hypoxic respiratory insufficiency. Started on remdesivir and dexamethasone Denies new complaints. States she feels the same. Does not elaborate. When discussing possible discharge tomorrow due to requiring high levels of insulin here and not being on insulin at home, she states she has done insulin with meals before and wants to be discharged today. She does agree to seeing endocrinology prior to dc to get insulin plan in place prior to dc. Past Medical History: Diagnosis Date Alimentary obesity 04/03/2016 Anxiety Asthma Chronic low back pain 04/03/2016 COPD exacerbation (HCC) 06/11/2020 Depression Fatty liver 02/06/2015 GERD (gastroesophageal reflux disease) H/O ovarian cystectomy History of LAVH Hx of blood clots Hyperglycemia Hyperlipidemia Hypertension Insomnia 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 Noncompliance Osteoarthritis Pulmonary embolism (HCC) Thyroid disease Tobacco abuse Type II or unspecified type diabetes mellitus without mention of complication, not stated as uncontrolled Weakness Past Surgical History: Procedure Laterality Date CHOLECYSTECTOMY COLONOSCOPY HYSTERECTOMY, TOTAL ABDOMINAL TONSILLECTOMY Family History Problem Relation Age of Onset Arthritis Mother High Blood Pressure Mother High Cholesterol Mother Diabetes Mother High Blood Pressure Father High Cholesterol Father Arthritis Brother Social History Socioeconomic History Marital status: Spouse name: Not on file Number of children: Not on file Years of education: Not on file Highest education level: Not on file Occupational History Not on file Tobacco Use Smoking status: Current Every Day Smoker Packs/day: 0.50 Years: 34.00 Pack years: 17.00 Types: Cigarettes Smokeless tobacco: Never Used Vaping Use Vaping Use: Never used Substance and Sexual Activity Alcohol use: No Comment: none Drug use: No Sexual activity: Not on file Other Topics Concern Not on file Social History Narrative Not on file Social Determinants of Health Financial Resource Strain: Low Risk Difficulty of Paying Living Expenses: Not hard at all Food Insecurity: No Food Insecurity Worried About Running Out of Food in the Last Year: Never true Ran Out of Food in the Last Year: Never true Transportation Needs: No Transportation Needs Lack of Transportation (Medical): No Lack of Transportation (Non-Medical): No Physical Activity: Days of Exercise per Week: Not on file Minutes of Exercise per Session: Not on file Stress: Feeling of Stress : Not on file Social Connections: Frequency of Communication with Friends and Family: Not on file Frequency of Social Gatherings with Friends and Family: Not on file Attends Druze Services: Not on file Active Member of Clubs or Organizations: Not on file Attends Club or Organization Meetings: Not on file Marital Status: Not on file Intimate Partner Violence: Fear of Current or Ex-Partner: Not on file Emotionally Abused: Not on file Physically Abused: Not on file Sexually Abused: Not on file Housing Stability: Unable to Pay for Housing in the Last Year: Not on file Number of Places Lived in the Last Year: Not on file Unstable Housing in the Last Year: Not on file Allergies Allergen Reactions Nsaids Anaphylaxis Bactrim [Sulfamethoxazole-Trimethoprim] Diarrhea and Nausea And Vomiting Prior to Admission medications Medication Sig Start Date End Date Taking? Authorizing Provider oxyCODONE (ROXICODONE) 5 MG immediate release tablet Take 0.5-1 tablets by mouth every 4 hours as needed for Pain for up to 3 days. 08/18/21 08/21/21 Yes Monse Milian DO methIMAzole (TAPAZOLE) 10 MG tablet Take 2 tablets by mouth daily 08/18/21 Yes Monse Milian DO sennosides-docusate sodium (SENOKOT-S) 8.6-50 MG tablet Take 1 tablet by mouth daily 08/18/21 Yes Monse Milian DO predniSONE (DELTASONE) 20 MG tablet Take 2 tablets by mouth daily for 2 days, THEN 1.5 tablets daily for 2 days, THEN 1 tablet daily for 2 days, THEN 0.5 tablets daily for 2 days. 08/18/21 08/26/21 Yes Monse Milian DO ipratropium-albuterol (DUONEB) 0.5-2.5 (3) MG/3ML SOLN nebulizer solution Inhale 3 mLs into the lungs 2 times daily 08/18/21 Yes Monse Milian DO atorvastatin (LIPITOR) 40 MG tablet TAKE TWO BY MOUTH EVERY OTHER DAY ALTERNATING WITH ONE EVERY OTHER DAY 08/18/21 Yes Monse Milian DO dapagliflozin (FARXIGA) 10 MG tablet Take 1 tablet by mouth every morning 04/16/21 Yes Anjana Salinas MD TRADJENTA 5 MG tablet TAKE ONE BY MOUTH DAILY 01/22/21 Yes Anjana Salinas MD amLODIPine (NORVASC) 10 MG tablet TAKE ONE BY MOUTH DAILY 01/19/21 Yes Anjana Salinas MD irbesartan (AVAPRO) 150 MG tablet TAKE ONE BY MOUTH EVERY NIGHT 01/19/21 Yes Anjana Salinas MD vitamin D (CHOLECALCIFEROL) 1000 UNIT TABS tablet Take 1,000 Units by mouth daily Yes Historical Provider, acetaminophen (TYLENOL) 500 MG tablet Take 500 mg by mouth every 6 hours as needed for Pain Yes Historical Provider, PARoxetine (PAXIL) 20 MG tablet Take 20 mg by mouth 2 times daily Yes Historical Provider, mirtazapine (REMERON SOLTAB) 30 MG disintegrating tablet Take 45 mg by mouth nightly Yes Historical Provider, clonazePAM (KLONOPIN) 2 MG tablet Take 2 mg by mouth 2 times daily. Yes Historical Provider, omeprazole (PRILOSEC) 20 MG capsule Take 20 mg by mouth daily Yes Historical Provider, Review of Systems Constitutional: Positive for fatigue. Respiratory: Positive for cough and shortness of breath. Musculoskeletal: Positive for myalgias. Neurological: Positive for weakness. Objective: Vitals: 08/17/21 0923 08/17/21 1703 08/17/21 1847 08/18/21 0601 BP: 137/74 129/70 Pulse: 82 60 Resp: 18 18 16 18 Temp: 96.6 F (35.9 C) 96.2 F (35.7 C) TempSrc: Temporal Temporal SpO2: 93% 91% 92% 91% Weight: Height: SpO2 Readings from Last 5 Encounters: 08/18/21 91% 08/06/21 96% 03/11/21 96% 03/03/21 96% 02/22/21 98% Physical Exam Constitutional: General: She is not in acute distress. Appearance: Normal appearance. She is not ill-appearing, toxic-appearing or diaphoretic. HENT: Head: Normocephalic and atraumatic. Nose: Nose normal. Mouth/Throat: Mouth: Mucous membranes are moist. Cardiovascular: Rate and Rhythm: Normal rate and regular rhythm. Pulses: Normal pulses. Heart sounds: Normal heart sounds. Pulmonary: Effort: Pulmonary effort is normal. No respiratory distress. Abdominal: General: Abdomen is flat. There is no distension. Musculoskeletal: Cervical back: Normal range of motion. Skin: General: Skin is warm and dry. Comments: R thoracic cage with stitches in place at prior site of chest tube - no erythema, edema, or warmth - healing well Neurological: Mental Status: She is alert. Psychiatric: Mood and Affect: Affect is flat. Behavior: Behavior normal. Lab Results Component Value Date NA 137 08/18/2021 K 3.8 08/18/2021 CL 101 08/18/2021 CO2 28 08/18/2021 BUN 17 08/18/2021 CREATININE 0.46 (L) 08/18/2021 GLUCOSE 227 (H) 08/18/2021 CALCIUM 9.0 08/18/2021 PROT 6.2 (L) 08/18/2021 LABALBU 3.4 (L) 08/18/2021 BILITOT 0.3 08/18/2021 ALKPHOS 114 08/18/2021 AST 22 08/18/2021 ALT 22 08/18/2021 LABGLOM >60 12/03/2016 GFRAA >60 09/23/2015 AGRATIO 0.9 (L) 09/23/2015 GLOB 4.0 09/23/2015 Lab Results Component Value Date WBC 9.1 08/18/2021 HGB 11.3 (L) 08/18/2021 HCT 37.0 08/18/2021 MCV 77.1 (L) 08/18/2021 PLT 302 08/18/2021 LABLYMP 14 (L) 02/05/2019 LYMPHOPCT 22.7 08/18/2021 GRANULOCYTES 64.7 08/18/2021 RBC 4.79 08/18/2021 MCH 23.7 (L) 08/18/2021 MCHC 30.7 (L) 08/18/2021 RDW 15.8 (H) 08/18/2021 Chest X-Ray: XR CHEST PORTABLE Result Date: 08/13/2021 Patient Name: THEA DORMAN Diagnostic Radiology ACCESSION EXAM DATE/TIME PROCEDURE ORDERING PROVIDER [id number] 08/13/2021 07:32 EST CR Chest Portable [id number] HARPAL BUENO CPT code 35334 Reason For Exam (CR Chest Portable) Evaluation of possible pneumothorax seen in earlier CXR today Report Clinical History: Evaluation of possible pneumothorax seen in earlier CXR today Comparison: 08/12/2021 Technique: Single AP radiograph of the chest. Findings: Cardiomediastinal silhouette is normal. Left apical opacity is again seen in the lungs. Patchy bibasilar infiltrates are noted. Right perihilar chest tube seen with no sizable pneumothorax. Impression: 1. No pneumothorax identified. 2. Unchanged bibasilar infiltrates and dense left apical airspace opacity. Report Dictated on --- Final --- Dictated: 08/13/2021 10:09 am Dictating Physician: MD PERSON JAMES Signed Date and Time: 08/13/2021 10:11 am Signed by: MD PERSON JAMES Transcribed Date and Time: 08/13/2021 10:09 XR CHEST PORTABLE Result Date: 08/12/2021 Patient Name: THEA DORMAN Diagnostic Radiology ACCESSION EXAM DATE/TIME PROCEDURE ORDERING PROVIDER [id number] 08/12/2021 21:12 EST CR Chest Portable [id number] -ELAINE, HARPAL CPT code 94184 Reason For Exam (CR Chest Portable) Evaluation of possible pneumothorax seen in earlier CXR today Report Clinical History: Evaluation of possible pneumothorax seen in earlier CXR today Comparison: 08/12/2021 at 1653 hours Technique: Single AP radiograph of the chest. FINDINGS/IMPRESSION: Unchanged examination of the chest with probable tiny right apical pneumothorax. Report Dictated on --- Final --- Dictated: 08/12/2021 9:59 pm Dictating Physician: MD PERSON JAMES Signed Date and Time: 08/12/2021 10:13 pm Signed by: MD PERSON JAMES Transcribed Date and Time: 08/12/2021 9:59 XR CHEST PORTABLE Result Date: 08/12/2021 Patient Name: THEA DORMAN Diagnostic Radiology ACCESSION EXAM DATE/TIME PROCEDURE ORDERING PROVIDER [id number] 08/12/2021 17:09 EST CR Chest Portable [id number] -ELAINE, HARPAL CPT code 43085 Reason For Exam (CR Chest Portable) Eval for pneumo in setting of chest tube Report Clinical History: Eval for pneumo in setting of chest tube Comparison: 08/12/2021 Technique: Single AP radiograph of the chest. Findings: Right basilar chest tube is again seen. There is question of a small right apical pneumothorax versus right second posterior inferior rib shadow. Patchy left apical and bibasilar pulmonary opacities are again seen. Impression: 1. Right basilar chest tube with question of a small right apical pneumothorax, likely artifact. Recommend follow-up imaging for evaluation. 2. Similar appearance of patchy bibasilar infiltrates and dense left airspace opacity. Report Dictated on --- Final --- Dictated: 08/12/2021 5:54 pm Dictating Physician: MD PERSON JAMES Signed Date and Time: 08/12/2021 6:00 pm Signed by: MD PERSON JAMES Transcribed Date and Time: 08/12/2021 5:54 XR CHEST PORTABLE Result Date: 08/12/2021 Patient Name: THEA DORMAN Diagnostic Radiology ACCESSION EXAM DATE/TIME PROCEDURE ORDERING PROVIDER [id number] 08/12/2021 07:42 EST CR Chest Portable MD LAWLER ANDREW CPT code 38927 Reason For Exam (CR Chest Portable) patient with chest tube s/p thoracotomy Report EXAM TYPE: RADIOLOGIC EXAMINATION, CHEST, SINGLE VIEW FRONTAL (CXR SINGLE VIEW) EXAM DATE AND TIME: 08/12/2021 7:42 AM EST INDICATION: Respiratory distress COMPARISON: 08/03/2021 TECHNIQUE: A single frontal view of the thorax was obtained and reviewed. Special views: None. IMPRESSION: 1. Lines/Tubes/Devices/Hardware: Stable projection of right chest tube. Please confirm position/function of devices/catheters clinically. 2. Lungs: Persistent diffuse edema or infiltrate, left apical density possibly atelectasis versus loculated fluid. 3. Pleura: See above No significant pneumothorax. 4. Heart and mediastinum: Limited due to technique. 5. Upper abdomen: No acute process seen. 6. Thorax:No acute bony process Report Dictated on --- Final --- Dictated: 08/12/2021 8:39 am Dictating Physician: MD BARRETT JOHN Signed Date and Time: 08/12/2021 8:45 am Signed by: MD BARRETT JOHN Transcribed Date and Time: 08/12/2021 8:39 XR CHEST PORTABLE Result Date: 08/11/2021 [id number]iology ACCESSION EXAM DATE/TIME PROCEDURE ORDERING PROVIDER [id number] 08/11/2021 13:10 EST CR Chest Portable MD LAWLER ANDREW CPT code 45548 Reason For Exam (CR Chest Portable) s/p thoracotomy Report PORTABLE CHEST CLINICAL INDICATION: Status post thoracotomy. COMPARISON: None. TECHNIQUE: A single frontal view of thorax was obtained and reviewed. IMPRESSION: 1. Lines/ tubes/ devices: Right-sided chest tube is directed toward the right hilum. 2. Lungs and Pleura: There is slight elevation of left hemidiaphragm. Left apical pleural thickening. There is left upper lobe streaky densities which may represent subsegmental atelectasis. No infiltrate or mass. No pneumothorax or pleural effusion. 3. Heart and mediastinum: Normal cardiomediastinal margin. 4. Bones: Thoracic degenerative spondylosis. Moderate-sized hiatal hernia. Report Dictated on --- Final --- Dictated: 08/11/2021 1:08 pm Dictating Physician: GONZALO CORTEZ DO, I Signed Date and Time: 08/11/2021 1:09 pm Signed by: GONZALO CORTEZ DO, I Transcribed Date and Time: 08/11/2021 1:08 . Additional results since admission have been reviewed. Assessment and Plan: Principal Problem: Pneumonia due to COVID-19 virus Active Problems: Episode of recurrent major depressive disorder (HCC) Essential hypertension, benign Current smoker Type 2 diabetes mellitus without complication, without long-term current use of insulin (HCC) Hyperlipidemia Hypoxia Morbidly obese (HCC) Graves disease Mediastinal mass Resolved Problems: * No resolved hospital problems. * Full code Covid pneumonia Acute hypoxic respiratory insufficiency -Symptom onset unclear, hypoxia noted after surgery 08/11. Covid +08/14. Unvaccinated -CXR: Bibasilar infiltrates -FiO2: 3-4 LNC -Remdesivir day 5 today -Dexamethasone day 5 today - will need steroid taper on discharge as she is still requiring O2 -Home O2 eval and nebulizer DME ordered S/p VATS--> thoracotomy for mediastinal mass resection 08/11 -Chest tube removed 08/13 -CTS signed off, recommend OP f/u Dr Penny -Path-no significant malignant cells noted HTN/HLD - Cont amlodipine, statin. Resume ARB on dc. No longer taking BB Graves' disease - Cont MMA, follows with endo OP DM2 - Resume home farxiga, glimeperide, tradjenta on dc - Endocrinology consulted given high glucose levels and new insulin requirement; will need steroids on dc therefore likely to need insulin during that time BMI> 40 Depression/anxiety - Cont paxil, remeron, klonopin Tobacco use disorder - Encourage cessation DVT Prophylaxis: lovenox 40 mg q 24hr Disposition: await clinical improvement and anticipate DC later today after last remdesivir dose. I spent over 51% of total time providing counseling or in coordination of care: > 35 minutes I personally reviewed chart, data, labs radiology reports Images from the original note were not included. [facility] Hospitalist Progress Note Thea Dorman : 1965(56 y.o.) Date: 08/17/21 Subjective: ChiefComplaint: shortness of breath HPI Thea Dorman is a 56 y.o. female with history of HTN, HLD, Graves disease, tobacco use, DM2, morbid obesity, depression who was admitted to cardiothoracic service for elective procedure for mediastinal mass. She underwent VATs with thoracotomy for resection 08/11/2021, pathology pending. She recovered well post operative, and chest tube was removed 08/13. Was persistently on 4-5L O2.. CXR showed bibasilar infiltrates, she is found to be Covid +08/14 (preop Covid test 08/06 neg). She is unvaccinated. Transferred to Covid service for further evaluation and treatment of Covid pneumonia acute hypoxic respiratory insufficiency. Started on remdesivir and dexamethasone No new complaints Was able to be weaned down to 3 LNC Dyspnea and cough improved significantly Past Medical History: Diagnosis Date Alimentary obesity 04/03/2016 Anxiety Asthma Chronic low back pain 04/03/2016 COPD exacerbation (HCC) 06/11/2020 Depression Fatty liver 02/06/2015 GERD (gastroesophageal reflux disease) H/O ovarian cystectomy History of LAVH Hx of blood clots Hyperglycemia Hyperlipidemia Hypertension Insomnia 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 Noncompliance Osteoarthritis Pulmonary embolism (HCC) Thyroid disease Tobacco abuse Type II or unspecified type diabetes mellitus without mention of complication, not stated as uncontrolled Weakness Past Surgical History: Procedure Laterality Date CHOLECYSTECTOMY COLONOSCOPY HYSTERECTOMY, TOTAL ABDOMINAL TONSILLECTOMY Family History Problem Relation Age of Onset Arthritis Mother High Blood Pressure Mother High Cholesterol Mother Diabetes Mother High Blood Pressure Father High Cholesterol Father Arthritis Brother Social History Socioeconomic History Marital status: Spouse name: Not on file Number of children: Not on file Years of education: Not on file Highest education level: Not on file Occupational History Not on file Tobacco Use Smoking status: Current Every Day Smoker Packs/day: 0.50 Years: 34.00 Pack years: 17.00 Types: Cigarettes Smokeless tobacco: Never Used Vaping Use Vaping Use: Never used Substance and Sexual Activity Alcohol use: No Comment: none Drug use: No Sexual activity: Not on file Other Topics Concern Not on file Social History Narrative Not on file Social Determinants of Health Financial Resource Strain: Low Risk Difficulty of Paying Living Expenses: Not hard at all Food Insecurity: No Food Insecurity Worried About Running Out of Food in the Last Year: Never true Ran Out of Food in the Last Year: Never true Transportation Needs: No Transportation Needs Lack of Transportation (Medical): No Lack of Transportation (Non-Medical): No Physical Activity: Days of Exercise per Week: Not on file Minutes of Exercise per Session: Not on file Stress: Feeling of Stress : Not on file Social Connections: Frequency of Communication with Friends and Family: Not on file Frequency of Social Gatherings with Friends and Family: Not on file Attends Druze Services: Not on file Active Member of Clubs or Organizations: Not on file Attends Club or Organization Meetings: Not on file Marital Status: Not on file Intimate Partner Violence: Fear of Current or Ex-Partner: Not on file Emotionally Abused: Not on file Physically Abused: Not on file Sexually Abused: Not on file Housing Stability: Unable to Pay for Housing in the Last Year: Not on file Number of Places Lived in the Last Year: Not on file Unstable Housing in the Last Year: Not on file Allergies Allergen Reactions Nsaids Anaphylaxis Bactrim [Sulfamethoxazole-Trimethoprim] Diarrhea and Nausea And Vomiting Prior to Admission medications Medication Sig Start Date End Date Taking? Authorizing Provider dapagliflozin (FARXIGA) 10 MG tablet Take 1 tablet by mouth every morning 04/16/21 Yes Anjana Salinas MD TRADJENTA 5 MG tablet TAKE ONE BY MOUTH DAILY 01/22/21 Yes Anjana Salinas MD amLODIPine (NORVASC) 10 MG tablet TAKE ONE BY MOUTH DAILY 01/19/21 Yes Anjana Salinas MD irbesartan (AVAPRO) 150 MG tablet TAKE ONE BY MOUTH EVERY NIGHT 01/19/21 Yes Anjana Salinas MD vitamin D (CHOLECALCIFEROL) 1000 UNIT TABS tablet Take 1,000 Units by mouth daily Yes Historical Provider, acetaminophen (TYLENOL) 500 MG tablet Take 500 mg by mouth every 6 hours as needed for Pain Yes Historical Provider, PARoxetine (PAXIL) 20 MG tablet Take 20 mg by mouth 2 times daily Yes Historical Provider, mirtazapine (REMERON SOLTAB) 30 MG disintegrating tablet Take 45 mg by mouth nightly Yes Historical Provider, clonazePAM (KLONOPIN) 2 MG tablet Take 2 mg by mouth 2 times daily. Yes Historical Provider, omeprazole (PRILOSEC) 20 MG capsule Take 20 mg by mouth daily Yes Historical Provider, Review of Systems Constitutional: Positive for fatigue. Respiratory: Positive for cough and shortness of breath. Musculoskeletal: Positive for myalgias. Neurological: Positive for weakness. Objective: Vitals: 08/16/21 1713 08/16/21 1801 08/17/21 0627 08/17/21 0923 BP: 108/64 124/71 Pulse: 70 71 Resp: 16 16 16 18 Temp: 96.3 F (35.7 C) 96.8 F (36 C) TempSrc: Temporal Temporal SpO2: 90% 92% 96% 93% Weight: Height: SpO2 Readings from Last 5 Encounters: 08/17/21 93% 08/06/21 96% 03/11/21 96% 03/03/21 96% 02/22/21 98% Physical Exam Constitutional: General: She is not in acute distress. Appearance: Normal appearance. She is not ill-appearing, toxic-appearing or diaphoretic. Cardiovascular: Rate and Rhythm: Normal rate. Pulmonary: Effort: Pulmonary effort is normal. No respiratory distress. Abdominal: General: Abdomen is flat. There is no distension. Neurological: Mental Status: She is alert. Psychiatric: Mood and Affect: Mood normal. Affect is flat. Behavior: Behavior normal. Lab Results Component Value Date NA 137 08/17/2021 K 3.6 08/17/2021 CL 101 08/17/2021 CO2 29 08/17/2021 BUN 17 08/17/2021 CREATININE 0.52 08/17/2021 GLUCOSE 222 (H) 08/17/2021 CALCIUM 9.0 08/17/2021 PROT 6.3 08/17/2021 LABALBU 3.5 08/17/2021 BILITOT 0.4 08/17/2021 ALKPHOS 118 08/17/2021 AST 23 08/17/2021 ALT 24 08/17/2021 LABGLOM >60 12/03/2016 GFRAA >60 09/23/2015 AGRATIO 0.9 (L) 09/23/2015 GLOB 4.0 09/23/2015 Lab Results Component Value Date WBC 7.5 08/17/2021 HGB 11.2 (L) 08/17/2021 HCT 36.1 08/17/2021 MCV 77.3 (L) 08/17/2021 PLT 313 08/17/2021 LABLYMP 14 (L) 02/05/2019 LYMPHOPCT 19.9 (L) 08/17/2021 GRANULOCYTES 66.0 08/17/2021 RBC 4.67 08/17/2021 MCH 23.9 (L) 08/17/2021 MCHC 30.9 (L) 08/17/2021 RDW 15.8 (H) 08/17/2021 Chest X-Ray: XR CHEST PORTABLE Result Date: 08/13/2021 Patient Name: THEA DORMAN Diagnostic Radiology ACCESSION EXAM DATE/TIME PROCEDURE ORDERING PROVIDER [id number] 08/13/2021 07:32 EST CR Chest Portable [id number] -HARPAL HENRY CPT code 45524 Reason For Exam (CR Chest Portable) Evaluation of possible pneumothorax seen in earlier CXR today Report Clinical History: Evaluation of possible pneumothorax seen in earlier CXR today Comparison: 08/12/2021 Technique: Single AP radiograph of the chest. Findings: Cardiomediastinal silhouette is normal. Left apical opacity is again seen in the lungs. Patchy bibasilar infiltrates are noted. Right perihilar chest tube seen with no sizable pneumothorax. Impression: 1. No pneumothorax identified. 2. Unchanged bibasilar infiltrates and dense left apical airspace opacity. Report Dictated on --- Final --- Dictated: 08/13/2021 10:09 am Dictating Physician: MD PERSON JAMES Signed Date and Time: 08/13/2021 10:11 am Signed by: MD PERSON JAMES Transcribed Date and Time: 08/13/2021 10:09 XR CHEST PORTABLE Result Date: 08/12/2021 Patient Name: THEA DORMAN Diagnostic Radiology ACCESSION EXAM DATE/TIME PROCEDURE ORDERING PROVIDER [id number] 08/12/2021 21:12 EST CR Chest Portable [id number] -ELAINE, HARPAL CPT code 53363 Reason For Exam (CR Chest Portable) Evaluation of possible pneumothorax seen in earlier CXR today Report Clinical History: Evaluation of possible pneumothorax seen in earlier CXR today Comparison: 08/12/2021 at 1653 hours Technique: Single AP radiograph of the chest. FINDINGS/IMPRESSION: Unchanged examination of the chest with probable tiny right apical pneumothorax. Report Dictated on --- Final --- Dictated: 08/12/2021 9:59 pm Dictating Physician: MD PERSON JAMES Signed Date and Time: 08/12/2021 10:13 pm Signed by: MD PERSON JAMES Transcribed Date and Time: 08/12/2021 9:59 XR CHEST PORTABLE Result Date: 08/12/2021 Patient Name: THEA DORMAN Diagnostic Radiology ACCESSION EXAM DATE/TIME PROCEDURE ORDERING PROVIDER [id number] 08/12/2021 17:09 EST CR Chest Portable [id number] -ELAINE, HARPAL CPT code 09439 Reason For Exam (CR Chest Portable) Eval for pneumo in setting of chest tube Report Clinical History: Eval for pneumo in setting of chest tube Comparison: 08/12/2021 Technique: Single AP radiograph of the chest. Findings: Right basilar chest tube is again seen. There is question of a small right apical pneumothorax versus right second posterior inferior rib shadow. Patchy left apical and bibasilar pulmonary opacities are again seen. Impression: 1. Right basilar chest tube with question of a small right apical pneumothorax, likely artifact. Recommend follow-up imaging for evaluation. 2. Similar appearance of patchy bibasilar infiltrates and dense left airspace opacity. Report Dictated on --- Final --- Dictated: 08/12/2021 5:54 pm Dictating Physician: MD PERSON JAMES Signed Date and Time: 08/12/2021 6:00 pm Signed by: MD PERSON JAMES Transcribed Date and Time: 08/12/2021 5:54 XR CHEST PORTABLE Result Date: 08/12/2021 [id number] Radiology ACCESSION EXAM DATE/TIME PROCEDURE ORDERING PROVIDER [id number] 08/12/2021 07:42 EST CR Chest Portable MD LAWLER ANDREW CPT code 51494 Reason For Exam (CR Chest Portable) patient with chest tube s/p thoracotomy Report EXAM TYPE: RADIOLOGIC EXAMINATION, CHEST, SINGLE VIEW FRONTAL (CXR SINGLE VIEW) EXAM DATE AND TIME: 08/12/2021 7:42 AM EST INDICATION: Respiratory distress COMPARISON: 08/03/2021 TECHNIQUE: A single frontal view of the thorax was obtained and reviewed. Special views: None. IMPRESSION: 1. Lines/Tubes/Devices/Hardware: Stable projection of right chest tube. Please confirm position/function of devices/catheters clinically. 2. Lungs: Persistent diffuse edema or infiltrate, left apical density possibly atelectasis versus loculated fluid. 3. Pleura: See above No significant pneumothorax. 4. Heart and mediastinum: Limited due to technique. 5. Upper abdomen: No acute process seen. 6. Thorax:No acute bony process Report Dictated on --- Final --- Dictated: 08/12/2021 8:39 am Dictating Physician: MD BARRETT JOHN Signed Date and Time: 08/12/2021 8:45 am Signed by: MD BARRETT JOHN Transcribed Date and Time: 08/12/2021 8:39 XR CHEST PORTABLE Result Date: 08/11/2021 [id number] Diagnostic Radiology ACCESSION EXAM DATE/TIME PROCEDURE ORDERING PROVIDER [id number] 08/11/2021 13:10 EST CR Chest Portable MD LAWLER ANDREW CPT code 60365 Reason For Exam (CR Chest Portable) s/p thoracotomy Report PORTABLE CHEST CLINICAL INDICATION: Status post thoracotomy. COMPARISON: None. TECHNIQUE: A single frontal view of thorax was obtained and reviewed. IMPRESSION: 1. Lines/ tubes/ devices: Right-sided chest tube is directed toward the right hilum. 2. Lungs and Pleura: There is slight elevation of left hemidiaphragm. Left apical pleural thickening. There is left upper lobe streaky densities which may represent subsegmental atelectasis. No infiltrate or mass. No pneumothorax or pleural effusion. 3. Heart and mediastinum: Normal cardiomediastinal margin. 4. Bones: Thoracic degenerative spondylosis. Moderate-sized hiatal hernia. Report Dictated on --- Final --- Dictated: 08/11/2021 1:08 pm Dictating Physician: GONZALO CORTEZ DO, I Signed Date and Time: 08/11/2021 1:09 pm Signed by: GONZALO CORTEZ DO, I Transcribed Date and Time: 08/11/2021 1:08 . Additional results since admission have been reviewed. Assessment and Plan: Principal Problem: Pneumonia due to COVID-19 virus Active Problems: Episode of recurrent major depressive disorder (HCC) Essential hypertension, benign Current smoker Type 2 diabetes mellitus without complication, without long-term current use of insulin (HCC) Hyperlipidemia Hypoxia Morbidly obese (HCC) Graves disease Mediastinal mass Resolved Problems: * No resolved hospital problems. * Full code Covid pneumonia Acute hypoxic respiratory insufficiency -Symptom onset unclear, hypoxia noted after surgery 08/11. Covid +08/14. Unvaccinated -CXR: Bibasilar infiltrates -FiO2: 5 LNC -Remdesivir day 4 -Dexamethasone day 4 S/p VATS--> thoracotomy for mediastinal mass resection 08/11 -Chest tube removed 08/13 -CTS signed off, recommend OP f/u Dr Penny -Path-no significant malignant cells noted HTN/HLD - Cont amlodipine, statin. Holding ARB. No longer taking BB Graves' disease - Cont MMA, follows with endo OP DM2 - Hold home farxiga, glimeperide, tradjenta - ISS while here, monitor for hyperglycemia BMI> 40 Depression/anxiety - Cont paxil, remeron, klonopin Tobacco use disorder - Encourage cessation DVT Prophylaxis: lovenox 40 mg q 24hr Disposition: await clinical improvement. Wean O2, continue Covid therapy. Anticipate DC home tomorrow after fifth dose of remdesivir. Will need home O2 eval I spent over 51% of total time providing counseling or in coordination of care: > 35 minutes I personally reviewed chart, data, labs radiology reports [facility] Respiratory Care Department Progress Note As part of the Respiratory Assessment Program (RAP), the following Respiratory Therapist evaluation has been completed, including a chart review and clinical/physical assessment. Respiratory Therapist RAP Evaluation Guideline Points 0 1 2 3 4 Points Strongly Consider History Factor No Pulmonary conditions Stable Pulmonary condition(s) Surgery or Intervention that may impact Pulmonary system (at risk) Surgery or Intervention that is impacting Pulmonary system Active Exacerbation of Pulmonary Condition 1 Respiratory Pattern Regular, RR= 12-18 GUDINO or Increased RR= 19-24 Irregular, or RR= 25-30 SOB, talk in short sentences, or RR= 31-35 Severe SOB, accessory muscle use, one word answers, or RR>35 0 Aerosol Med(s), High Flow O2 Breath Sounds Clear Diminished in 1 lobe Diminished in ? 2 lobes Adventitious breath sounds Coarse crackles, Wheezes, or Diminished in >2 lobes 3 Aerosol Med(s), Bronchial Hygiene, Hyperinflation Cough & Sputum Strong cough, no secretion retention or production Weak cough, no secretion retention or production Weak cough, w/ production (less often than Q2hr), or secretion retention No cough, w/ secretion retention or production (less often than Q2hr) Significant secretion production (more often than Q2hr) or mucus plug 0 Aerosol Med(s), Bronchial Hygiene, Hyperinflation Level of Activity Ambulatory Ambulatory with Assist Up in chair or edge of bed (dangle) Non-ambulatory, bedridden with active ROM Completely paralyzed or without active ROM 0 Triage 5 0-2 Triage 4 3-5 Triage 3 6-10 Triage 2 11-14 Triage 1 ?15 Total 4 Triage Score = 4 TRIAGE SCORING SUGGESTED FREQUENCIES Aerosol Therapy Bronchial Hygiene Hyperinflation Triage Score Q4h & PRN 1 Q4hWA (QID) & PRN 2 TID & PRN 3 BID & PRN 4 PRN 5 Therapy(s) Indicated Yes/No Aerosol Medication y Hyperinflation y Bronchial Hygiene y High Flow Oxygen n RT to enter/modify frequency of treatment order in EMR/EHR to match this RAP evaluation. Based on this RAP evaluation the following therapy is being initiated: duoneb At the following frequency: Bid & prn Comments: Thank you for involving Respiratory in the care of this patient, Images from the original note were not included. [facility] Hospitalist Progress Note Thea Dorman : 1965(56 y.o.) Date: 08/16/21 Subjective: ChiefComplaint: shortness of breath HPI Thea Dorman is a 56 y.o. female with history of HTN, HLD, Graves disease, tobacco use, DM2, morbid obesity, depression who was admitted to cardiothoracic service for elective procedure for mediastinal mass. She underwent VATs with thoracotomy for resection 08/11/2021, pathology pending. She recovered well post operative, and chest tube was removed 08/13. Was persistently on 4-5L O2.. CXR showed bibasilar infiltrates, she is found to be Covid +08/14 (preop Covid test 08/06 neg). She is unvaccinated. Transferred to Covid service for further evaluation and treatment of Covid pneumonia acute hypoxic respiratory insufficiency. Started on remdesivir and dexamethasone Feeling better this morning Dry cough Afebrile FiO2: 5 6 LNC Past Medical History: Diagnosis Date Alimentary obesity 04/03/2016 Anxiety Asthma Chronic low back pain 04/03/2016 COPD exacerbation (HCC) 06/11/2020 Depression Fatty liver 02/06/2015 GERD (gastroesophageal reflux disease) H/O ovarian cystectomy History of LAVH Hx of blood clots Hyperglycemia Hyperlipidemia Hypertension Insomnia 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 Noncompliance Osteoarthritis Pulmonary embolism (HCC) Thyroid disease Tobacco abuse Type II or unspecified type diabetes mellitus without mention of complication, not stated as uncontrolled Weakness Past Surgical History: Procedure Laterality Date CHOLECYSTECTOMY COLONOSCOPY HYSTERECTOMY, TOTAL ABDOMINAL TONSILLECTOMY Family History Problem Relation Age of Onset Arthritis Mother High Blood Pressure Mother High Cholesterol Mother Diabetes Mother High Blood Pressure Father High Cholesterol Father Arthritis Brother Social History Socioeconomic History Marital status: Spouse name: Not on file Number of children: Not on file Years of education: Not on file Highest education level: Not on file Occupational History Not on file Tobacco Use Smoking status: Current Every Day Smoker Packs/day: 0.50 Years: 34.00 Pack years: 17.00 Types: Cigarettes Smokeless tobacco: Never Used Vaping Use Vaping Use: Never used Substance and Sexual Activity Alcohol use: No Comment: none Drug use: No Sexual activity: Not on file Other Topics Concern Not on file Social History Narrative Not on file Social Determinants of Health Financial Resource Strain: Low Risk Difficulty of Paying Living Expenses: Not hard at all Food Insecurity: No Food Insecurity Worried About Running Out of Food in the Last Year: Never true Ran Out of Food in the Last Year: Never true Transportation Needs: No Transportation Needs Lack of Transportation (Medical): No Lack of Transportation (Non-Medical): No Physical Activity: Days of Exercise per Week: Not on file Minutes of Exercise per Session: Not on file Stress: Feeling of Stress : Not on file Social Connections: Frequency of Communication with Friends and Family: Not on file Frequency of Social Gatherings with Friends and Family: Not on file Attends Druze Services: Not on file Active Member of Clubs or Organizations: Not on file Attends Club or Organization Meetings: Not on file Marital Status: Not on file Intimate Partner Violence: Fear of Current or Ex-Partner: Not on file Emotionally Abused: Not on file Physically Abused: Not on file Sexually Abused: Not on file Housing Stability: Unable to Pay for Housing in the Last Year: Not on file Number of Places Lived in the Last Year: Not on file Unstable Housing in the Last Year: Not on file Allergies Allergen Reactions Nsaids Anaphylaxis Bactrim [Sulfamethoxazole-Trimethoprim] Diarrhea and Nausea And Vomiting Prior to Admission medications Medication Sig Start Date End Date Taking? Authorizing Provider dapagliflozin (FARXIGA) 10 MG tablet Take 1 tablet by mouth every morning 04/16/21 Yes Anjana Salinas MD TRADJENTA 5 MG tablet TAKE ONE BY MOUTH DAILY 01/22/21 Yes Anjana Salinas MD amLODIPine (NORVASC) 10 MG tablet TAKE ONE BY MOUTH DAILY 01/19/21 Yes Anjana Salinas MD irbesartan (AVAPRO) 150 MG tablet TAKE ONE BY MOUTH EVERY NIGHT 01/19/21 Yes Anjana Salinas MD vitamin D (CHOLECALCIFEROL) 1000 UNIT TABS tablet Take 1,000 Units by mouth daily Yes Historical Provider, acetaminophen (TYLENOL) 500 MG tablet Take 500 mg by mouth every 6 hours as needed for Pain Yes Historical Provider, PARoxetine (PAXIL) 20 MG tablet Take 20 mg by mouth 2 times daily Yes Historical Provider, mirtazapine (REMERON SOLTAB) 30 MG disintegrating tablet Take 45 mg by mouth nightly Yes Historical Provider, clonazePAM (KLONOPIN) 2 MG tablet Take 2 mg by mouth 2 times daily. Yes Historical Provider, omeprazole (PRILOSEC) 20 MG capsule Take 20 mg by mouth daily Yes Historical Provider, Review of Systems Constitutional: Positive for fatigue. Respiratory: Positive for cough and shortness of breath. Musculoskeletal: Positive for myalgias. Neurological: Positive for weakness. Objective: Vitals: 08/16/21 1005 08/16/21 1006 08/16/21 1346 08/16/21 1437 BP: Pulse: 82 Resp: 16 16 16 Temp: TempSrc: Temporal SpO2: 96% 97% 96% 92% Weight: Height: SpO2 Readings from Last 5 Encounters: 08/16/21 92% 08/06/21 96% 03/11/21 96% 03/03/21 96% 02/22/21 98% Physical Exam Constitutional: General: She is not in acute distress. Appearance: Normal appearance. She is not ill-appearing, toxic-appearing or diaphoretic. Cardiovascular: Rate and Rhythm: Normal rate. Pulmonary: Effort: Pulmonary effort is normal. No respiratory distress. Abdominal: General: Abdomen is flat. There is no distension. Neurological: Mental Status: She is alert. Psychiatric: Mood and Affect: Mood normal. Affect is flat. Behavior: Behavior normal. Lab Results Component Value Date NA 136 08/16/2021 K 3.9 08/16/2021 CL 101 08/16/2021 CO2 27 08/16/2021 BUN 19 08/16/2021 CREATININE 0.46 (L) 08/16/2021 GLUCOSE 194 (H) 08/16/2021 CALCIUM 9.2 08/16/2021 PROT 6.7 08/16/2021 LABALBU 3.6 08/16/2021 BILITOT 0.4 08/16/2021 ALKPHOS 123 08/16/2021 AST 31 08/16/2021 ALT 30 08/16/2021 LABGLOM >60 12/03/2016 GFRAA >60 09/23/2015 AGRATIO 0.9 (L) 09/23/2015 GLOB 4.0 09/23/2015 Lab Results Component Value Date WBC 7.2 08/16/2021 HGB 11.3 (L) 08/16/2021 HCT 36.4 08/16/2021 MCV 76.6 (L) 08/16/2021 PLT 330 08/16/2021 LABLYMP 14 (L) 02/05/2019 LYMPHOPCT 17.6 (L) 08/16/2021 GRANULOCYTES 69.2 08/16/2021 RBC 4.76 08/16/2021 MCH 23.7 (L) 08/16/2021 MCHC 30.9 (L) 08/16/2021 RDW 15.3 (H) 08/16/2021 Chest X-Ray: XR CHEST PORTABLE Result Date: 08/13/2021 Patient Name: THEA DORMAN Diagnostic Radiology ACCESSION EXAM DATE/TIME PROCEDURE ORDERING PROVIDER [id number] 08/13/2021 07:32 EST CR Chest Portable [id number] -HARPAL HENRY CPT code 31813 Reason For Exam (CR Chest Portable) Evaluation of possible pneumothorax seen in earlier CXR today Report Clinical History: Evaluation of possible pneumothorax seen in earlier CXR today Comparison: 08/12/2021 Technique: Single AP radiograph of the chest. Findings: Cardiomediastinal silhouette is normal. Left apical opacity is again seen in the lungs. Patchy bibasilar infiltrates are noted. Right perihilar chest tube seen with no sizable pneumothorax. Impression: 1. No pneumothorax identified. 2. Unchanged bibasilar infiltrates and dense left apical airspace opacity. Report Dictated on --- Final --- Dictated: 08/13/2021 10:09 am Dictating Physician: MD PERSON JAMES Signed Date and Time: 08/13/2021 10:11 am Signed by: MD PERSON JAMES Transcribed Date and Time: 08/13/2021 10:09 XR CHEST PORTABLE Result Date: 08/12/2021 Patient Name: THEA DORMAN Diagnostic Radiology ACCESSION EXAM DATE/TIME PROCEDURE ORDERING PROVIDER [id number] 08/12/2021 21:12 EST CR Chest Portable [id number] -ELAINE, HARPAL CPT code 59276 Reason For Exam (CR Chest Portable) Evaluation of possible pneumothorax seen in earlier CXR today Report Clinical History: Evaluation of possible pneumothorax seen in earlier CXR today Comparison: 08/12/2021 at 1653 hours Technique: Single AP radiograph of the chest. FINDINGS/IMPRESSION: Unchanged examination of the chest with probable tiny right apical pneumothorax. Report Dictated on --- Final --- Dictated: 08/12/2021 9:59 pm Dictating Physician: MD PERSON JAMES Signed Date and Time: 08/12/2021 10:13 pm Signed by: MD PERSON JAMES Transcribed Date and Time: 08/12/2021 9:59 XR CHEST PORTABLE Result Date: 08/12/2021 Patient Name: THEA DORMAN Diagnostic Radiology ACCESSION EXAM DATE/TIME PROCEDURE ORDERING PROVIDER [id number] 08/12/2021 17:09 EST CR Chest Portable [id number] -ELAINE, HARPAL CPT code 30884 Reason For Exam (CR Chest Portable) Eval for pneumo in setting of chest tube Report Clinical History: Eval for pneumo in setting of chest tube Comparison: 08/12/2021 Technique: Single AP radiograph of the chest. Findings: Right basilar chest tube is again seen. There is question of a small right apical pneumothorax versus right second posterior inferior rib shadow. Patchy left apical and bibasilar pulmonary opacities are again seen. Impression: 1. Right basilar chest tube with question of a small right apical pneumothorax, likely artifact. Recommend follow-up imaging for evaluation. 2. Similar appearance of patchy bibasilar infiltrates and dense left airspace opacity. Report Dictated on --- Final --- Dictated: 08/12/2021 5:54 pm Dictating Physician: MD PERSON JAMES Signed Date and Time: 08/12/2021 6:00 pm Signed by: MD PERSON JAMES Transcribed Date and Time: 08/12/2021 5:54 XR CHEST PORTABLE Result Date: 08/12/2021 [id number] ACCESSION EXAM DATE/TIME PROCEDURE ORDERING PROVIDER [id number] 08/12/2021 07:42 EST CR Chest Portable MD LAWLER ANDREW CPT code 68707 Reason For Exam (CR Chest Portable) patient with chest tube s/p thoracotomy Report EXAM TYPE: RADIOLOGIC EXAMINATION, CHEST, SINGLE VIEW FRONTAL (CXR SINGLE VIEW) EXAM DATE AND TIME: 08/12/2021 7:42 AM EST INDICATION: Respiratory distress COMPARISON: 08/03/2021 TECHNIQUE: A single frontal view of the thorax was obtained and reviewed. Special views: None. IMPRESSION: 1. Lines/Tubes/Devices/Hardware: Stable projection of right chest tube. Please confirm position/function of devices/catheters clinically. 2. Lungs: Persistent diffuse edema or infiltrate, left apical density possibly atelectasis versus loculated fluid. 3. Pleura: See above No significant pneumothorax. 4. Heart and mediastinum: Limited due to technique. 5. Upper abdomen: No acute process seen. 6. Thorax:No acute bony process Report Dictated on --- Final --- Dictated: 08/12/2021 8:39 am Dictating Physician: MD BARRETT JOHN Signed Date and Time: 08/12/2021 8:45 am Signed by: MD BARRETT JOHN Transcribed Date and Time: 08/12/2021 8:39 XR CHEST PORTABLE Result Date: 08/11/2021 [id number] ACCESSION EXAM DATE/TIME PROCEDURE ORDERING PROVIDER [id number] 08/11/2021 13:10 EST CR Chest Portable MD LAWLER ANDREW CPT code 54187 Reason For Exam (CR Chest Portable) s/p thoracotomy Report PORTABLE CHEST CLINICAL INDICATION: Status post thoracotomy. COMPARISON: None. TECHNIQUE: A single frontal view of thorax was obtained and reviewed. IMPRESSION: 1. Lines/ tubes/ devices: Right-sided chest tube is directed toward the right hilum. 2. Lungs and Pleura: There is slight elevation of left hemidiaphragm. Left apical pleural thickening. There is left upper lobe streaky densities which may represent subsegmental atelectasis. No infiltrate or mass. No pneumothorax or pleural effusion. 3. Heart and mediastinum: Normal cardiomediastinal margin. 4. Bones: Thoracic degenerative spondylosis. Moderate-sized hiatal hernia. Report Dictated on --- Final --- Dictated: 08/11/2021 1:08 pm Dictating Physician: GONZALO CORTEZ DO, I Signed Date and Time: 08/11/2021 1:09 pm Signed by: GONZALO CORTEZ DO, I Transcribed Date and Time: 08/11/2021 1:08 . Additional results since admission have been reviewed. Assessment and Plan: Principal Problem: Pneumonia due to COVID-19 virus Active Problems: Episode of recurrent major depressive disorder (HCC) Essential hypertension, benign Current smoker Type 2 diabetes mellitus without complication, without long-term current use of insulin (HCC) Hyperlipidemia Hypoxia Morbidly obese (HCC) Graves disease Mediastinal mass Resolved Problems: * No resolved hospital problems. * Full code Covid pneumonia Acute hypoxic respiratory insufficiency -Symptom onset unclear, hypoxia noted after surgery 08/11. Covid +08/14. Unvaccinated -CXR: Bibasilar infiltrates -FiO2: 5 LNC -Remdesivir day 3 -Dexamethasone day 3 S/p VATS--> thoracotomy for mediastinal mass resection 08/11 -Chest tube removed 08/13 -CTS signed off, recommend OP f/u Dr Penny -Path pending HTN/HLD - Cont amlodipine, statin. Holding ARB. No longer taking BB Graves' disease - Cont MMA, follows with endo OP DM2 - Hold home farxiga, glimeperide, tradjenta - ISS while here, monitor for hyperglycemia BMI> 40 Depression/anxiety - Cont paxil, remeron, klonopin Tobacco use disorder - Encourage cessation DVT Prophylaxis: lovenox 40 mg q 24hr Disposition: await clinical improvement. Wean O2, continue Covid therapy I spent over 51% of total time providing counseling or in coordination of care: > 35 minutes I personally reviewed chart, data, labs radiology reports D/W RN [facility] MEDICATION RECONCILI[facility] Date: 08/15/21 Room:[address] [place] [address] Patient Name: Thea Dorman Allergies: Nsaids and Bactrim [sulfamethoxazole-trimethoprim] Age: 56 y.o. Sex: female Note: New information has been obtained regarding the patient s medications. The medication reconciliation has been updated to reflect this. Please consider making these changes/additions if appropriate: Recommendations: *FYI* - UNABLE to discuss home meds with patient as she would not answer phone. Updated home med list based on last fill dates from her [facility]. (Also called [facility] and [facility], but they have NOT [facility] for patient since beginning of 2020). 1. Home medications to restart if there is not a current contraindication: a. *FYI* - patient filled Clonazepam 2mg BID on 07/01 for 90 day supply, currently ordered 1mg bid prn as an inpatient b. Avapro 150mg qday (autosub = Losartan 50mg qday) c. Tradjenta 5mg qday d. Vit D3 1000units qday (UNABLE to verify if she's truly taking as it's OTC - NO Vit D level in EMR) 2. Medications originally on the home list that patient has NOT recently filled. If patient to take @ DC, please write Rx's. a. Lipitor 80mg every other day alternating with 40mg every other day (UNABLE to verify ANY fills, currently ordered 40mg qday as an inpatient) b. Amaryl 4mg BID (UNABLE to verify ANY fills) c. Methimazole 20mg qday ([facility] with [facility] - currently ordered as an inpt) Please page/call with questions. Date: 08/15/21 Time: 2:18 PM Name: Dayanara Valverde RPH, PharmD Pager: [phone] SURGERY PROGRESS NOTE - 08/15/2021 SUBJECTIVE - persistently requiring 4-5L NC - sleepy this AM - able to ambulate, pain well controlled - tolerating PO, urinating OBJECTIVE VITALS: BP (!) 160/94 Pulse 78 Temp 97.6 F (36.4 C) (Temporal) Resp 18 Ht 5' 5 (1.651 m) Wt 233 lb (105.7 kg) SpO2 96% BMI 38.77 kg/m PHYSICAL EXAM: CONSTITUTIONAL: NAD, A&O X3. HEENT: No scleral icterus, PERRLA, EOMI CARD: RRR, no m/r/g CHEST: equal chest rise, R thoracotomy incision c/d/i PULM: Resp effort easy and unlabored SKIN: Warm and dry INTAKE/OUTPUT: I/O last 3 completed shifts: In: 550 [P.O.:300; IV Piggyback:250] Out: - Data Recent Labs 08/14/21 0858 08/14/21 1331 WBC 7.4 6.9 HGB 11.8 12.0 HCT 38.2 38.8 PLT 255 270 Recent Labs 08/14/21 1331 08/15/21 0435 NA 137 136 K 4.5 3.9 CL 102 105 CO2 25 19* BUN 12 13 CREATININE 0.50* 0.44* GLUCOSE 149* 130* Recent Labs 08/14/21 1331 08/15/21 0435 AST 57* 41 ALT 41* 34 BILITOT 0.8 0.6 ALKPHOS 120 120 ASSESSMENT AND PLAN 56 y.o. female s/p mediastinal mass excision on 08/12 - ok for diet, activity as tolerated - OP follow up placed for Dr. Penny's clinic - defer remainder to medical team, appreciate mgmt of COVID - CT Surgery will sign off, please call with questions Nicko Victoria MD PGY-IV PAGING: From 6a-6p (- weekends): Page me at [phone] From 6p-6a (- weekends): - Surg ICU Patients: Page [phone] - Surg Floor Patients: Page [phone] Associated attestation - Joe Penny MD - 08/15/2021 10:12 AM EST I independently saw and evaluated the patient - including reviewing the labs, imaging studies, and available documentation. I agree with the findings and plan of care as documented by the resident/PRE K TEACHER/POULTRY FARMER EGG/PA, unless otherwise noted. CTS to arrange follow up visit in the office. Sign off this admission. Mgmnt per medical team for Covid. Please do not hesitate to contact me/us if you have any questions or concerns. Joe Penny MD FACS Images from the original note were not included. [facility] Hospitalist Progress Note Thea Dorman : 1965(56 y.o.) Date: 08/15/21 Subjective: ChiefComplaint: shortness of breath HPI Thea Dorman is a 56 y.o. female with history of HTN, HLD, Graves disease, tobacco use, DM2, morbid obesity, depression who was admitted to cardiothoracic service for elective procedure for mediastinal mass. She underwent VATs with thoracotomy for resection 08/11/2021, pathology pending. She recovered well post operative, and chest tube was removed 08/13. Was persistently on 4-5L O2.. CXR showed bibasilar infiltrates, she is found to be Covid +08/14 (preop Covid test 08/06 -). Transferred to Covid service for further evaluation and treatment of Covid pneumonia acute hypoxic respiratory insufficiency. Started on remdesivir and dexamethasone Feeling ok this morning Continues to have some dyspnea FIO2: 5L NC Past Medical History: Diagnosis Date Alimentary obesity 04/03/2016 Anxiety Asthma Chronic low back pain 04/03/2016 COPD exacerbation (HCC) 06/11/2020 Depression Fatty liver 02/06/2015 GERD (gastroesophageal reflux disease) H/O ovarian cystectomy History of LAVH Hx of blood clots Hyperglycemia Hyperlipidemia Hypertension Insomnia 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 Noncompliance Osteoarthritis Pulmonary embolism (HCC) Thyroid disease Tobacco abuse Type II or unspecified type diabetes mellitus without mention of complication, not stated as uncontrolled Weakness Past Surgical History: Procedure Laterality Date CHOLECYSTECTOMY COLONOSCOPY HYSTERECTOMY, TOTAL ABDOMINAL TONSILLECTOMY Family History Problem Relation Age of Onset Arthritis Mother High Blood Pressure Mother High Cholesterol Mother Diabetes Mother High Blood Pressure Father High Cholesterol Father Arthritis Brother Social History Socioeconomic History Marital status: Spouse name: Not on file Number of children: Not on file Years of education: Not on file Highest education level: Not on file Occupational History Not on file Tobacco Use Smoking status: Current Every Day Smoker Packs/day: 0.50 Years: 34.00 Pack years: 17.00 Types: Cigarettes Smokeless tobacco: Never Used Vaping Use Vaping Use: Never used Substance and Sexual Activity Alcohol use: No Comment: none Drug use: No Sexual activity: Not on file Other Topics Concern Not on file Social History Narrative Not on file Social Determinants of Health Financial Resource Strain: Low Risk Difficulty of Paying Living Expenses: Not hard at all Food Insecurity: No Food Insecurity Worried About Running Out of Food in the Last Year: Never true Ran Out of Food in the Last Year: Never true Transportation Needs: No Transportation Needs Lack of Transportation (Medical): No Lack of Transportation (Non-Medical): No Physical Activity: Days of Exercise per Week: Not on file Minutes of Exercise per Session: Not on file Stress: Feeling of Stress : Not on file Social Connections: Frequency of Communication with Friends and Family: Not on file Frequency of Social Gatherings with Friends and Family: Not on file Attends Druze Services: Not on file Active Member of Clubs or Organizations: Not on file Attends Club or Organization Meetings: Not on file Marital Status: Not on file Intimate Partner Violence: Fear of Current or Ex-Partner: Not on file Emotionally Abused: Not on file Physically Abused: Not on file Sexually Abused: Not on file Housing Stability: Unable to Pay for Housing in the Last Year: Not on file Number of Places Lived in the Last Year: Not on file Unstable Housing in the Last Year: Not on file Allergies Allergen Reactions Nsaids Anaphylaxis Bactrim [Sulfamethoxazole-Trimethoprim] Diarrhea and Nausea And Vomiting Prior to Admission medications Medication Sig Start Date End Date Taking? Authorizing Provider dapagliflozin (FARXIGA) 10 MG tablet Take 1 tablet by mouth every morning 04/16/21 Yes Anjana Salinas MD TRADJENTA 5 MG tablet TAKE ONE BY MOUTH DAILY 01/22/21 Yes Anjana Salinas MD amLODIPine (NORVASC) 10 MG tablet TAKE ONE BY MOUTH DAILY 01/19/21 Yes Anjana Salinas MD irbesartan (AVAPRO) 150 MG tablet TAKE ONE BY MOUTH EVERY NIGHT 01/19/21 Yes Anjana Salinas MD vitamin D (CHOLECALCIFEROL) 1000 UNIT TABS tablet Take 1,000 Units by mouth daily Yes Historical Provider, acetaminophen (TYLENOL) 500 MG tablet Take 500 mg by mouth every 6 hours as needed for Pain Yes Historical Provider, PARoxetine (PAXIL) 20 MG tablet Take 20 mg by mouth 2 times daily Yes Historical Provider, mirtazapine (REMERON SOLTAB) 30 MG disintegrating tablet Take 45 mg by mouth nightly Yes Historical Provider, clonazePAM (KLONOPIN) 2 MG tablet Take 2 mg by mouth 2 times daily. Yes Historical Provider, omeprazole (PRILOSEC) 20 MG capsule Take 20 mg by mouth daily Yes Historical Provider, Review of Systems Constitutional: Positive for fatigue. Respiratory: Positive for cough and shortness of breath. Musculoskeletal: Positive for myalgias. Neurological: Positive for weakness. Objective: Vitals: 08/14/21 2156 08/15/21 0854 08/15/21 1032 08/15/21 1049 BP: 116/64 (!) 160/94 Pulse: 71 78 Resp: 20 18 16 16 Temp: 98 F (36.7 C) 97.6 F (36.4 C) TempSrc: Temporal Temporal SpO2: 94% 96% 93% 93% Weight: 233 lb (105.7 kg) Height: SpO2 Readings from Last 5 Encounters: 08/15/21 93% 08/06/21 96% 03/11/21 96% 03/03/21 96% 02/22/21 98% Physical Exam Constitutional: General: She is not in acute distress. Appearance: Normal appearance. She is not ill-appearing, toxic-appearing or diaphoretic. Cardiovascular: Rate and Rhythm: Normal rate. Pulmonary: Effort: Pulmonary effort is normal. No respiratory distress. Abdominal: General: Abdomen is flat. There is no distension. Neurological: Mental Status: She is alert. Psychiatric: Mood and Affect: Mood normal. Affect is flat. Behavior: Behavior normal. Lab Results Component Value Date NA 136 08/15/2021 K 3.9 08/15/2021 CL 105 08/15/2021 CO2 19 (L) 08/15/2021 BUN 13 08/15/2021 CREATININE 0.44 (L) 08/15/2021 GLUCOSE 130 (H) 08/15/2021 CALCIUM 8.5 08/15/2021 PROT 6.6 08/15/2021 LABALBU 3.6 08/15/2021 BILITOT 0.6 08/15/2021 ALKPHOS 120 08/15/2021 AST 41 08/15/2021 ALT 34 08/15/2021 LABGLOM >60 12/03/2016 GFRAA >60 09/23/2015 AGRATIO 0.9 (L) 09/23/2015 GLOB 4.0 09/23/2015 Lab Results Component Value Date WBC 6.9 08/14/2021 HGB 12.0 08/14/2021 HCT 38.8 08/14/2021 MCV 78.2 (L) 08/14/2021 PLT 270 08/14/2021 LABLYMP 14 (L) 02/05/2019 LYMPHOPCT 14.3 (L) 08/14/2021 GRANULOCYTES 72.3 08/14/2021 RBC 4.97 08/14/2021 MCH 24.1 (L) 08/14/2021 MCHC 30.8 (L) 08/14/2021 RDW 15.7 (H) 08/14/2021 Chest X-Ray: XR CHEST PORTABLE Result Date: 08/13/2021 Patient Name: THEA DORMAN Diagnostic Radiology ACCESSION EXAM DATE/TIME PROCEDURE ORDERING PROVIDER [id number] 08/13/2021 07:32 EST CR Chest Portable [id number] -ELAINE, HARPAL CPT code 99546 Reason For Exam (CR Chest Portable) Evaluation of possible pneumothorax seen in earlier CXR today Report Clinical History: Evaluation of possible pneumothorax seen in earlier CXR today Comparison: 08/12/2021 Technique: Single AP radiograph of the chest. Findings: Cardiomediastinal silhouette is normal. Left apical opacity is again seen in the lungs. Patchy bibasilar infiltrates are noted. Right perihilar chest tube seen with no sizable pneumothorax. Impression: 1. No pneumothorax identified. 2. Unchanged bibasilar infiltrates and dense left apical airspace opacity. Report Dictated on --- Final --- Dictated: 08/13/2021 10:09 am Dictating Physician: MD PERSON JAMES Signed Date and Time: 08/13/2021 10:11 am Signed by: MD PERSON JAMES Transcribed Date and Time: 08/13/2021 10:09 XR CHEST PORTABLE Result Date: 08/12/2021 Patient Name: THEA DORMAN Diagnostic Radiology ACCESSION EXAM DATE/TIME PROCEDURE ORDERING PROVIDER [id number] 08/12/2021 21:12 EST CR Chest Portable [id number] -ELAINE, HARPAL CPT code 18161 Reason For Exam (CR Chest Portable) Evaluation of possible pneumothorax seen in earlier CXR today Report Clinical History: Evaluation of possible pneumothorax seen in earlier CXR today Comparison: 08/12/2021 at 1653 hours Technique: Single AP radiograph of the chest. FINDINGS/IMPRESSION: Unchanged examination of the chest with probable tiny right apical pneumothorax. Report Dictated on --- Final --- Dictated: 08/12/2021 9:59 pm Dictating Physician: MD PERSON JAMES Signed Date and Time: 08/12/2021 10:13 pm Signed by: MD PERSON JAMES Transcribed Date and Time: 08/12/2021 9:59 XR CHEST PORTABLE Result Date: 08/12/2021 Patient Name: THEA DORMAN Diagnostic Radiology ACCESSION EXAM DATE/TIME PROCEDURE ORDERING PROVIDER [id number] 08/12/2021 17:09 EST CR Chest Portable [id number] HARPAL BUENO CPT code 46972 Reason For Exam (CR Chest Portable) Eval for pneumo in setting of chest tube Report Clinical History: Eval for pneumo in setting of chest tube Comparison: 08/12/2021 Technique: Single AP radiograph of the chest. Findings: Right basilar chest tube is again seen. There is question of a small right apical pneumothorax versus right second posterior inferior rib shadow. Patchy left apical and bibasilar pulmonary opacities are again seen. Impression: 1. Right basilar chest tube with question of a small right apical pneumothorax, likely artifact. Recommend follow-up imaging for evaluation. 2. Similar appearance of patchy bibasilar infiltrates and dense left airspace opacity. Report Dictated on --- Final --- Dictated: 08/12/2021 5:54 pm Dictating Physician: MD PERSON JAMES Signed Date and Time: 08/12/2021 6:00 pm Signed by: MD PERSON JAMES Transcribed Date and Time: 08/12/2021 5:54 XR CHEST PORTABLE Result Date: 08/12/2021 Patient Name: THEA DORMAN Diagnostic Radiology ACCESSION EXAM DATE/TIME PROCEDURE ORDERING PROVIDER [id number] 08/12/2021 07:42 EST CR Chest Portable MD LAWLER ANDREW CPT code 23541 Reason For Exam (CR Chest Portable) patient with chest tube s/p thoracotomy Report EXAM TYPE: RADIOLOGIC EXAMINATION, CHEST, SINGLE VIEW FRONTAL (CXR SINGLE VIEW) EXAM DATE AND TIME: 08/12/2021 7:42 AM EST INDICATION: Respiratory distress COMPARISON: 08/03/2021 TECHNIQUE: A single frontal view of the thorax was obtained and reviewed. Special views: None. IMPRESSION: 1. Lines/Tubes/Devices/Hardware: Stable projection of right chest tube. Please confirm position/function of devices/catheters clinically. 2. Lungs: Persistent diffuse edema or infiltrate, left apical density possibly atelectasis versus loculated fluid. 3. Pleura: See above No significant pneumothorax. 4. Heart and mediastinum: Limited due to technique. 5. Upper abdomen: No acute process seen. 6. Thorax:No acute bony process Report Dictated on --- Final --- Dictated: 08/12/2021 8:39 am Dictating Physician: MD BARRETT JOHN Signed Date and Time: 08/12/2021 8:45 am Signed by: MD BARRETT JOHN Transcribed Date and Time: 08/12/2021 8:39 XR CHEST PORTABLE Result Date: 08/11/2021 Patient Name: THEA DORMAN Diagnostic Radiology ACCESSION EXAM DATE/TIME PROCEDURE ORDERING PROVIDER [id number] 08/11/2021 13:10 EST CR Chest Portable MD LAWLER ANDREW CPT code 26447 Reason For Exam (CR Chest Portable) s/p thoracotomy Report PORTABLE CHEST CLINICAL INDICATION: Status post thoracotomy. COMPARISON: None. TECHNIQUE: A single frontal view of thorax was obtained and reviewed. IMPRESSION: 1. Lines/ tubes/ devices: Right-sided chest tube is directed toward the right hilum. 2. Lungs and Pleura: There is slight elevation of left hemidiaphragm. Left apical pleural thickening. There is left upper lobe streaky densities which may represent subsegmental atelectasis. No infiltrate or mass. No pneumothorax or pleural effusion. 3. Heart and mediastinum: Normal cardiomediastinal margin. 4. Bones: Thoracic degenerative spondylosis. Moderate-sized hiatal hernia. Report Dictated on --- Final --- Dictated: 08/11/2021 1:08 pm Dictating Physician: GONZALO CORTEZ DO, I Signed Date and Time: 08/11/2021 1:09 pm Signed by: GONZALO CORTEZ DO, I Transcribed Date and Time: 08/11/2021 1:08 . Additional results since admission have been reviewed. Assessment and Plan: Principal Problem: Pneumonia due to COVID-19 virus Active Problems: Episode of recurrent major depressive disorder (HCC) Essential hypertension, benign Current smoker Type 2 diabetes mellitus without complication, without long-term current use of insulin (HCC) Hyperlipidemia Hypoxia Morbidly obese (HCC) Graves disease Mediastinal mass Resolved Problems: * No resolved hospital problems. * Full code Covid pneumonia Acute hypoxic respiratory insufficiency -Symptom onset unclear, hypoxia noted after surgery 08/11. Covid +08/14. Vaccinated? -CXR: Bibasilar infiltrates -FiO2: 5 LNC -Remdesivir day 2 -Dexamethasone day 2 S/p VATS--> thoracotomy for mediastinal mass resection 08/11 -Chest tube removed 08/13 -CTS signed off, recommend OP f/u Dr Penny -Path pending HTN/HLD - Cont amlodipine, statin. Holding ARB. No longer taking BB Graves' disease - Cont MMA, follows with endo OP DM2 - Hold home farxiga, glimeperide, tradjenta - ISS while here, monitor for hyperglycemia BMI> 40 Depression/anxiety - Cont paxil, remeron, klonopin Tobacco use disorder - Encourage cessation DVT Prophylaxis: lovenox 40 mg q 24hr Disposition: await clinical improvement I spent over 51% of total time providing counseling or in coordination of care: > 35 minutes I personally reviewed chart, data, labs radiology reports SURGERY PROGRESS NOTE - 08/14/2021 SUBJECTIVE - persistently requiring 4-5L NC - minimal ambulation, slept most of the day yesterday - tolerating PO, urinating - able to pull 1300 on IS OBJECTIVE VITALS: BP (!) 140/77 Pulse 83 Temp 98.5 F (36.9 C) (Temporal) Resp 14 Ht 5' 5 (1.651 m) Wt 243 lb (110.2 kg) SpO2 91% BMI 40.44 kg/m PHYSICAL EXAM: CONSTITUTIONAL: NAD, A&O X3. HEENT: No scleral icterus, PERRLA, EOMI CARD: RRR, no m/r/g CHEST: equal chest rise, R thoracotomy incision c/d/i PULM: Resp effort easy and unlabored SKIN: Warm and dry INTAKE/OUTPUT: I/O last 3 completed shifts: In: 650 [P.O.:650] Out: 54 [Chest Tube:54] Data Recent Labs 08/12/2131 WBC 15.6* HGB 11.8 HCT 39.3 PLT 291 Recent Labs 08/12/2131 NA 137 K 4.6 CL 103 CO2 26 BUN 16 CREATININE 0.69 GLUCOSE 139* No results for input(s): AST, ALT, ALB, BILITOT, ALKPHOS in the last 72 hours. ASSESSMENT AND PLAN 56 y.o. female s/p mediastinal mass excision on 08/12 - ok for diet - daily CXR - check CBC - check sputum cx and gram stain - Prn pain meds - wean o2 - duonebs, 3% nebs Nicko Victoria MD PGY-IV PAGING: From 6a-6p (-s): Page me at [phone] From 6p-6a (-s): - Surg ICU Patients: Page [phone] - Surg Floor Patients: Page [phone] Associated attestation - Joe Penny MD - 08/14/2021 9:39 AM EST I independently saw and evaluated the patient - including reviewing the labs, imaging studies, and available documentation. I agree with the findings and plan of care as documented by the resident/PRE K TEACHER/POULTRY FARMER EGG/PA, unless otherwise noted. Left upper lobe has an opacity. Will rule out Covid-19. Please do not hesitate to contact me/us if you have any questions or concerns. Joe Penny MD FACS Chest tube was removed at 1115 hrs by me with the help of RN. Nicko Victoria MD PGY IV SURGERY PROGRESS NOTE - 08/13/2021 SUBJECTIVE - dyspneic on WS so returned to suction by call team - doing better this morning, less dyspneic. - coughing up phlegm - still on 4L NC OBJECTIVE VITALS: BP 111/76 Pulse 82 Temp 99 F (37.2 C) (Temporal) Resp 18 Ht 5' 5 (1.651 m) Wt 243 lb (110.2 kg) SpO2 91% BMI 40.44 kg/m PHYSICAL EXAM: CONSTITUTIONAL: NAD, A&O X3. HEENT: No scleral icterus, PERRLA, EOMI CARD: RRR, no m/r/g CHEST: equal chest rise, R chest tube no air leak, PULM: Resp effort easy and unlabored SKIN: Warm and dry INTAKE/OUTPUT: I/O last 3 completed shifts: In: 850 [P.O.:850] Out: 55 [Chest Tube:55] Data Recent Labs 08/12/21 003 WBC 15.6* HGB 11.8 HCT 39.3 PLT 291 Recent Labs 08/12/2131 NA 137 K 4.6 CL 103 CO2 26 BUN 16 CREATININE 0.69 GLUCOSE 139* No results for input(s): AST, ALT, ALB, BILITOT, ALKPHOS in the last 72 hours. ASSESSMENT AND PLAN 56 y.o. female s/p mediastinal mass excision on 08/12 - ok for diet - daily CXR - DC Chest tube today - Prn pain meds - wean o2 - duonebs, 3% nebs Nicko Victoria MD PGY-IV PAGING: From 6a-6p (-s): Page me at [phone] From 6p-6a (-s): - Surg ICU Patients: Page [phone] - Surg Floor Patients: Page [phone] Associated attestation - Joe Penny MD - 08/13/2021 10:31 AM EST I independently saw and evaluated the patient - including reviewing the labs, imaging studies, and available documentation. I agree with the findings and plan of care as documented by the resident/PRE K TEACHER/POULTRY FARMER EGG/PA, unless otherwise noted. Chest tubes are ready for removal today. Wean O2 and may need to stay for hypoxia. Please do not hesitate to contact me/us if you have any questions or concerns. Joe Penny MD FACS SURGERY PROGRESS NOTE - 08/12/2021 SUBJECTIVE - atrium tipped over overnight, small air leak when returned to suction this AM - denies complaints otherwise - no dizziness, nausea, vomiting, dyspnea - pain well controlled - lung expanded on CXR OBJECTIVE VITALS: BP 124/71 Pulse 71 Temp 99.4 F (37.4 C) (Temporal) Resp 16 Ht 5' 5 (1.651 m) Wt 243 lb (110.2 kg) SpO2 95% BMI 40.44 kg/m PHYSICAL EXAM: CONSTITUTIONAL: NAD, A&O X3. HEENT: No scleral icterus, PERRLA, EOMI CARD: RRR, no m/r/g CHEST: equal chest rise PULM: Resp effort easy and unlabored SKIN: Warm and dry INTAKE/OUTPUT: I/O last 3 completed shifts: In: 1100 [I.V.:1100] Out: 205 [Blood:50; Chest Tube:155] Data Recent Labs 08/12/21 0032 WBC 15.6* HGB 11.8 HCT 39.3 PLT 291 Recent Labs 08/12/21 0032 NA 137 K 4.6 CL 103 CO2 26 BUN 16 CREATININE 0.69 GLUCOSE 139* No results for input(s): AST, ALT, ALB, BILITOT, ALKPHOS in the last 72 hours. ASSESSMENT AND PLAN 56 y.o. female s/p mediastinal mass excision on 08/12 - ok for diet - check CXR - CT to waterseal - anticipate DC chest tube later today - Prn pain meds - anticipate home tomorrow if pain well controlled Nicko Victoria MD PGY-IV PAGING: From 6a-6p (-s): Page me at [phone] From 6p-6a (-s): - Surg ICU Patients: Page [phone] - Surg Floor Patients: Page [phone] Associated attestation - Joe Penny MD - 08/12/2021 1:23 PM EST I independently saw and evaluated the patient - including reviewing the labs, imaging studies, and available documentation. I agree with the findings and plan of care as documented by the resident/PRE K TEACHER/POULTRY FARMER EGG/PA, unless otherwise noted. Please do not hesitate to contact me/us if you have any questions or concerns. Joe Penny MD FACS Patient Evaluation Form The patient is currently receiving Duoneb Q4WA Points 0 1 2 3 4 Points Totals Pulmonary Status (-/+) History Smoking history < 20 pack years Smoking history > 20 pack years Pulmonary Disorder (acute or chronic) Severe or Chronic with Exacerbation 0 Surgical Status No Surgery Trach PEG General Surgery Lower Abdominal Thoracic or Upper Abdominal Thoracic with Pulmonary Disorder 3 Chest X-ray Clear None Ordered Chronic Changes CXR results Pending Infiltrates, atelectasis, pleural effusion, or edema Infiltrates in more than one lobe Infiltrate + Atelectasis, &/or pleural effusion 2 Respiratory Pattern Regular, RR = 12-20 Increased, RR = 21-25 GUDINO, irregular, or RR = 26-30 Decreased FEV1 or RR = 31-35 Severe SOB, used of of accessory muscles, or RR = > 35 0 Mental Status Alert, oriented, cooperative Confused, but follows commands Lethargic or un-able to follow commands Obtunded Comatose 0 Breath Sounds Clear to auscultation Decreased unilaterally or in bases only Decreased bilaterally Crackles or intermittent wheezes Wheezes 2 Cough Strong, spontaneous, & nonproductive Strong, spontaneous, & productive Weak, nonproductive Weak, productive or with wheezes No spontaneous cough or may require suctioning 0 Level of Activity Ambulatory Ambulatory with Assist Non-ambulatroy Paraplegic Quadriplegic 1 Triage 1 > 20 pts Triage 2 16-20 pts Triage 3 11- 15 pts Triage 4 6 - 10 pts Triage 5 0 - 5 pts TOTAL POINTS = 8 Triage Score = 4 Changing Therapy to Duoneb TID Patient arrived and ID verified. Monitor applied. Oral airway removed on arrival. Vital signs stable. Call light in reach. Denies nausea and vomiting. Patient okay for clear liquids. Changed gown and obtained BGT 235 documented in this encounter [facility] Work Phone: 08-15-2021 Hospital Discharge instructions Monse Milian DO - 08/15/2021 Images from the original note were not included. Discharge Instructions Call your surgeon in 1 to 2 days to schedule a follow-up appointment in 1-2 weeks. OK to shower. OK for activity as tolerated. No lifting over 15 pounds. Wound Care: keep wound clean and dry, place dry bandages for comfort. Ok to leave open to air If you have nick or stitches, they can be removed in 14 days after your surgery by your surgeon or PCP. If you have a drain, please record daily output amounts and bring the recordings with you to your office follow up. No driving while taking narcotic pain medications. You may take an over the counter stool softener while on narcotics for constipation as needed (colace, miralax, etc). Call your Physician or return to the Emergency Room if you experience: -New or increased pain. -New or increased bleeding. -Nausea & vomitting. -Fever & chills. -Shortness of breath. -Chest pain. -Abdominal distention. Physician discharge instructions: Dear Ms. Dorman, Thank you for allowing me to be a part of the team that provided your medical care during this hospital stay. Here is a brief summary of what we found and instructions for you as you leave the hospital. Reason(s) for hospital stay: COVID-19 pneumonia - You were treated with Remdesivir and steroids (Decadron). You will need to finish your steroid treatment at home. Please make sure to monitor yourself for symptoms, and return to the ED if anything returns or worsens. You may want to monitor your oxygen status at home with a pulse oximeter. You will need to remain in isolation until 08/23/2021. Please see attached instructions. Please make sure to follow up with your primary care physician as recommended. Respiratory failure - you required oxygen throughout your hospital stay due to the above. Evaluation prior to your discharge showed you did need oxygen when you return home. Please make sure to wear this at all times. Your PCP will monitor your oxygen on your follow up to determine if you still need to continue to wear this afterwards. Mediastinal mass - please follow up with cardiothoracic surgery as recommended. Please have your PCP monitor your stitches and remove if healing well on your follow up. Discharge instructions: - Please attend all follow-up appointments as scheduled. - Please bring a medication list and all of your medications to your appointments. - Please take all medications exactly as prescribed in these instructions. If your symptoms return or worsen, please seek immediate medical attention. Thank you for allowing me to be part of your care. I hope you continue to feel better soon. Monse Milian DO [facility] Medicine Program Please note: You were cared for by a hospitalist during your hospital stay. Once you are discharged, your primary care physician will handle any further medical issues. Please note that no refills for any discharge medications will be authorized once you are discharged, as it is imperative that you return to your primary care physician (or establish a relationship with a primary care physician if you do not have one) for your aftercare needs so that they can reassess your need for medications and monitor your lab values. Your primary care physician should be able to send refills for medications after your follow up appointment. The following attachments cannot be sent through Care Everywhere.Coronavirus Disease (COVID-19): Isolation ([place])Coronavirus Disease (COVID-19): Hospital Discharge ([place])COVID-19 Vaccine: Quick List ([place])documented in this encounter [facility] Work Phone: 03-03-2021 Hospital Discharge instructions Patito Amaya MD - 03/03/2021 We will call you if sttol sample is positive; start falgyll until that time; Return for fever The following attachments cannot be sent through Care Everywhere.Fatigue ([place])documented in this encounter [facility] Work Phone: 02-22-2021 Hospital Discharge instructions Gonzalo Mae MD - 02/22/2021 Return to Emergency Room if fever greater than 100.5, vomiting, worse in any other way. The following attachments cannot be sent through Care Everywhere.UTI (Urinary Tract Infection): Female ([place])documented in this encounter [facility] Work Phone: 01-31-2021 Hospital Discharge instructions Gonzalo Mae MD - 01/31/2021 Return to Emergency Room if fever greater than 100.5, back or flank pain, vomiting, worse in any other way The following attachments cannot be sent through Care Everywhere.UTI (Urinary Tract Infection): Female ([place])documented in this encounter [facility] Work Phone: 05-18-2019 History of Past i llness Narrative Problem Noted Date Resolved Date Sepsis 05/18/2019 09/08/2020 Last Assessment & Plan: Met fever and WBC criteria Bronchitis 09/20/2018 09/08/2020 Last Assessment & Plan: Assessment: Patient continues to complain of shortness of breath and chest tightness On 2L NC at 95% after attempts to wean CXR showed new airspace disease within the lingula is consistent with pneumonia CT chest showed no CT evidence of pulmonary embolism. Possible left hydronephrosis can be further evaluated by ultrasound. Fatty liver. Tiny left lung infiltrate may be inflammatory. Tiny amount of right pleural fluid is probably insignificant. No leucocytosis, afebrile Procal 0.08 Patient feeling much better this am , no SOB or CP Patient had desaturation study and will not require home O2 PLAN: PO Augmentin x 7 days + probiotic Prednisone 40mg daily x 5 days Albuterol inhaler at home prn (patient already has, no script needed at this time) Follow up with PCP in 1 week Hypoxemia 12/02/2016 09/08/2020 Acute pulmonary embolism 12/02/2016 021 Drug overdose 11/29/2016 09/08/2020 Pyelonephritis 09/06/2016 09/08/2020 Abnormal urinalysis 04/03/2016 09/08/2020 Suicide 03/31/2016 09/08/2020 Lower abdominal pain 03/08/2016 09/08/2020 UTI (urinary tract infection) 03/08/2016 Abdominal pain 03/08/2016 09/08/2020 Pneumonia 10/25/2014 09/08/2020 Overview: - past 2 to 3 days - cough, fever, pleuritic CP - round nodular infiltrate on CXR - Improved with IVF and Abx overnight - Will get baseline chest CT today prior to discharge to characterize nodule, but suspect a round pneumonia - Home with PO Levaquin and PCP F/U next week. SOB (shortness of breath) 10/24/20142020 Overview: 2 days of sweating, SOB and chills with pleuritic chest pain. Sick contact in the last 1 week with URI. Leukocytosis in the ER , CXR negative, severly fatigued and tired. Sent from PCP office for dehydration and presyncope with these symptoms. Diarrhea and GI discomfort for the same time: Plan: Admit for observation Levaquin for possible pneumonia Hydrate well and repeat CXR in the am Legionella AG Blood cultures Will follow documented as of this encounter (statuses as of 12/21/2021) [facility]10-04-2019 History of Past illness Narrative* Problem Noted Date Diagnosed Date Resolved Date Sepsis 05/18/2019 09/08/2020 Last Assessment & Plan: Met fever and WBC criteria Bronchitis 09/20/2018 09/08/2020 Last Assessment & Plan: Assessment: Patient continues to complain of shortness of breath and chest tightness On 2L NC at 95% after attempts to wean CXR showed new airspace disease within the lingula is consistent with pneumonia CT chest showed no CT evidence of pulmonary embolism. Possible left hydronephrosis can be further evaluated by ultrasound. Fatty liver. Tiny left lung infiltrate may be inflammatory. Tiny amount of right pleural fluid is probably insignificant. No leucocytosis, afebrile Procal 0.08 Patient feeling much better this am , no SOB or CP Patient had desaturation study and will not require home O2 PLAN: PO Augmentin x 7 days + probiotic Prednisone 40mg daily x 5 days Albuterol inhaler at home prn (patient already has, no script needed at this time) Follow up with PCP in 1 week Hypoxemia 12/02/2016 09/08/2020 Acute pulmonary embolism 12/02/2016 Drug overdose 11/29/2016 09/08/2020 Pyelonephritis 09/06/2016 09/08/2020 Abnormal urinalysis 04/03/2016 09/08/19 21 Suicide 03/31/2016 09/08/2020 Lower abdominal pain 03/08/2016 021 UTI (urinary tract infection) 03/08/2016 09/08/2020 Abdominal pain 03/08/2016 09/08/2020 Pneumonia 10/25/2014 09/08/2020 Overview: - past 2 to 3 days - cough, fever, pleuritic CP - round nodular infiltrate on CXR - Improved with IVF and Abx overnight - Will get baseline chest CT today prior to discharge to characterize nodule, but suspect a round pneumonia - Home with PO Levaquin and PCP F/U next week. SOB (shortness of breath) 10/24/2014 Overview: 2 days of sweating, SOB and chills with pleuritic chest pain. Sick contact in the last 1 week with URI. Leukocytosis in the ER , CXR negative, severly fatigued and tired. Sent from PCP office for dehydration and presyncope with these symptoms. Diarrhea and GI discomfort for the same time: Plan: Admit for observation Levaquin for possible pneumonia Hydrate well and repeat CXR in the am Legionella AG Blood cultures Will follow documented as of this encounter (statuses as of 06/23/2023) [facility] Acute cystitis without hematuria- Primary Acute cystitis documented in this encounter [facility] Work Phone: Evaluation note* Diagnosis Acute cystitis without hematuria- Primary Acute cystitis documented in this encounter [facility] Work Phone: Evaluation note* Diagnosis Diarrhea, unspecified type- Primary General weakness Other malaise and fatigue documented in this encounter [facility] Work Phone: Evaluation note* Diagnosis Pneumonia due to COVID-19 virus- Primary Mediastinal mass Swelling, mass, or lump in chest Hyperlipidemia, unspecified hyperlipidemia type Type 2 diabetes mellitus without complication, without long-term current use of insulin ([facility]) Current smoker Tobacco use disorder Episode of recurrent major depressive disorder ([facility]) Essential hypertension, benign Graves disease Toxic diffuse goiter without mention of thyrotoxic crisis or storm Morbidly obese ([facility]) Morbid obesity Hypoxia Hypoxemia Steroid-induced hyperglycemia Other abnormal glucose documented in this encounter [facility] Work Phone: Evaluation note* Diagnosis URI with cough and congestion- Primary documented in this encounter [facility] Work Phone: Evaluation note* Diagnosis Graves disease Toxic diffuse goiter without mention of thyrotoxic crisis or storm documented in this encounter [facility] note* Diagnosis Viral upper respiratory tract infection- Primary Acute upper respiratory infections of unspecified site Diarrhea, unspecified type Acute cystitis without hematuria Acute cystitis documented in this encounter [facility] Work Phone: Evaluation note* Diagnosis Type 2 diabetes mellitus without complication, without long-term current use of insulin ([facility]) ([facility])- Primary Essential hypertension, benign [facility] Diagnosis Type 2 diabetes mellitus without complication, without long-term current use of insulin ([facility]) ([facility])- Primary Severe obesity (BMI 35.0-39.9) with comorbidity ([facility]) Pneumonia due to infectious organism, unspecified laterality, unspecified part of lung Diarrhea, unspecified type [facility] Diagnosis Type 2 diabetes mellitus without complication, without long-term current use of insulin ([facility]) ([facility])- Primary Severe obesity (BMI 35.0-39.9) with comorbidity ([facility]) Pneumonia due to infectious organism, unspecified laterality, unspecified part of lung Diarrhea, unspecified type [facility] Diagnosis Pneumonia, unspecified organism [facility] Diagnosis Generalized abdominal pain- Primary Abdominal pain, generalized [facility]* Diagnosis UTI symptoms- Primary Other symptoms involving urinary system documented in this encounter [facility] note* Diagnosis Pneumonia, unspecified organism- Primary Pneumonia, unspecified organism [facility] Diagnosis Hypercholesteremia- Primary Pure hypercholesterolemia Type 2 diabetes mellitus without complication, without long-term current use of insulin (CMS/HCC) ([facility]) Flu vaccine need documented in this encounter [facility] note* Diagnosis Epigastric pain- Primary Abdominal pain, epigastric Gastroesophageal reflux disease, unspecified whether esophagitis present Hiatal hernia Diaphragmatic hernia without mention of obstruction or gangrene documented in this encounter [facility] note* Diagnosis Essential hypertension, benign Type 2 diabetes mellitus without complication, without long-term current use of insulin (CMS/HCC) (HCC) documented in this encounter [facility] note* Diagnosis Essential hypertension, benign Type 2 diabetes mellitus without complication, without long-term current use of insulin (CMS/HCC) ([facility]) documented in this encounter [facility] note* Diagnosis Hypercholesteremia Pure hypercholesterolemia documented in this encounter [facility] note* Diagnosis Hypercholesteremia Pure hypercholesterolemia documented in this encounter [facility] note* Diagnosis Type 2 diabetes mellitus without complication, without long-term current use of insulin (CMS/HCC) ([facility])- Primary Hypercholesteremia Pure hypercholesterolemia documented in this encounter [facility] note* Diagnosis Essential hypertension, benign documented in this encounter [facility] note* Diagnosis Essential hypertension, benign documented in this encounter [facility] note* Diagnosis Type 2 diabetes mellitus without complication, without long-term current use of insulin (CMS/HCC) ([facility]) documented in this encounter [facility] note* Diagnosis Leukocytes in urine- Primary Other cells and casts in urine Urinary urgency Urgency of urination Sensation of pressure in bladder area Other specified disorders of bladder Dysuria documented in this encounter [facility]* Diagnosis Type 2 diabetes mellitus without complication, without long-term current use of insulin (CMS/HCC) (HCC) documented in this encounter [facility] note* Diagnosis Hypercholesteremia- Primary Pure hypercholesterolemia Type 2 diabetes mellitus without complication, without long-term current use of insulin (CMS/HCC) (HCC) Major depressive disorder, recurrent severe without psychotic features (HCC) Current smoker documented in this encounter [facility] note* Diagnosis Hypercholesteremia- Primary Pure hypercholesterolemia Type 2 diabetes mellitus without complication, without long-term current use of insulin (CMS/HCC) (HCC) Major depressive disorder, recurrent severe without psychotic features (HCC) Current smoker [facility] Diagnosis Type 2 diabetes mellitus without complication, without long-term current use of insulin (CMS/HCC) (HCC)- Primary Essential hypertension, benign Need for influenza vaccination Need for prophylactic vaccination and inoculation against influenza Type 2 diabetes mellitus without complication, without long-term current use of insulin (CMS/HCC) (HCC)- Primary Essential hypertension, benign Type 2 diabetes mellitus without complication, without long-term current use of insulin (CMS/HCC) (HCC)- Primary Severe obesity (BMI 35.0-39.9) with comorbidity (HCC) Pneumonia due to infectious organism, unspecified laterality, unspecified part of lung Diarrhea, unspecified type Hypercholesteremia- Primary Pure hypercholesterolemia Type 2 diabetes mellitus without complication, without long-term current use of insulin (CMS/HCC) (HCC) Flu vaccine need Hypercholesteremia- Primary Pure hypercholesterolemia Type 2 diabetes mellitus without complication, without long-term current use of insulin (CMS/HCC) (HCC) Major depressive disorder, recurrent severe without psychotic features (HCC) Current smoker HTN (hypertension), benign Essential hypertension, benign documented in this encounter [facility]* Diagnosis Type 2 diabetes mellitus without complication, without long-term current use of insulin (CMS/HCC) (HCC)- Primary Essential hypertension, benign Need for influenza vaccination Need for prophylactic vaccination and inoculation against influenza [facility]* Diagnosis Type 2 diabetes mellitus without complication, without long-term current use of insulin (CMS/HCC) (HCC)- Primary Essential hypertension, benign Need for influenza vaccination Need for prophylactic vaccination and inoculation against influenza Type 2 diabetes mellitus without complication, without long-term current use of insulin (CMS/HCC) (HCC)- Primary Essential hypertension, benign Type 2 diabetes mellitus without complication, without long-term current use of insulin (CMS/HCC) (HCC)- Primary Severe obesity (BMI 35.0-39.9) with comorbidity (HCC) Pneumonia due to infectious organism, unspecified laterality, unspecified part of lung Diarrhea, unspecified type Hypercholesteremia- Primary Pure hypercholesterolemia Type 2 diabetes mellitus without complication, without long-term current use of insulin (CMS/HCC) (HCC) Flu vaccine need Yeast infection- Primary Type 2 diabetes mellitus without complication, without long-term current use of insulin (CMS/HCC) (HCC) documented in this encounter [facility]* Diagnosis Type 2 diabetes mellitus without complication, without long-term current use of insulin (CMS/HCC) (HCC)- Primary Essential hypertension, benign Need for influenza vaccination Need for prophylactic vaccination and inoculation against influenza Type 2 diabetes mellitus without complication, without long-term current use of insulin (CMS/HCC) (HCC)- Primary Essential hypertension, benign Type 2 diabetes mellitus without complication, without long-term current use of insulin (CMS/HCC) (HCC)- Primary Severe obesity (BMI 35.0-39.9) with comorbidity (HCC) Pneumonia due to infectious organism, unspecified laterality, unspecified part of lung Diarrhea, unspecified type Hypercholesteremia- Primary Pure hypercholesterolemia Type 2 diabetes mellitus without complication, without long-term current use of insulin (CMS/HCC) (HCC) Flu vaccine need Type 2 diabetes mellitus without complication, without long-term current use of insulin (CMS/HCC) (HCC) documented in this encounter [facility]* Diagnosis Type 2 diabetes mellitus without complication, without long-term current use of insulin (CMS/HCC) (HCC)- Primary Essential hypertension, benign Need for influenza vaccination Need for prophylactic vaccination and inoculation against influenza Type 2 diabetes mellitus without complication, without long-term current use of insulin (CMS/HCC) (HCC)- Primary Essential hypertension, benign Type 2 diabetes mellitus without complication, without long-term current use of insulin (CMS/HCC) (HCC)- Primary Severe obesity (BMI 35.0-39.9) with comorbidity (HCC) Pneumonia due to infectious organism, unspecified laterality, unspecified part of lung Diarrhea, unspecified type Hypercholesteremia- Primary Pure hypercholesterolemia Type 2 diabetes mellitus without complication, without long-term current use of insulin (CMS/HCC) (HCC) Flu vaccine need Type 2 diabetes mellitus without complication, without long-term current use of insulin (CMS/HCC) (HCC) documented in this encounter [facility]* Diagnosis Type 2 diabetes mellitus without complication, without long-term current use of insulin (CMS/HCC) (HCC)- Primary Essential hypertension, benign Need for influenza vaccination Need for prophylactic vaccination and inoculation against influenza Type 2 diabetes mellitus without complication, without long-term current use of insulin (CMS/HCC) (HCC)- Primary Essential hypertension, benign Type 2 diabetes mellitus without complication, without long-term current use of insulin (CMS/HCC) (HCC)- Primary Severe obesity (BMI 35.0-39.9) with comorbidity (HCC) Pneumonia due to infectious organism, unspecified laterality, unspecified part of lung Diarrhea, unspecified type Hypercholesteremia- Primary Pure hypercholesterolemia Type 2 diabetes mellitus without complication, without long-term current use of insulin (CMS/HCC) (HCC) Flu vaccine need Screening for lung cancer- Primary Tobacco use disorder Personal history of nicotine dependence documented in this encounter [facility]* Diagnosis Type 2 diabetes mellitus without complication, without long-term current use of insulin (CMS/HCC) (HCC)- Primary Essential hypertension, benign Need for influenza vaccination Need for prophylactic vaccination and inoculation against influenza Type 2 diabetes mellitus without complication, without long-term current use of insulin (CMS/HCC) (HCC)- Primary Essential hypertension, benign Type 2 diabetes mellitus without complication, without long-term current use of insulin (CMS/HCC) (HCC)- Primary Severe obesity (BMI 35.0-39.9) with comorbidity (HCC) Pneumonia due to infectious organism, unspecified laterality, unspecified part of lung Diarrhea, unspecified type Hypercholesteremia- Primary Pure hypercholesterolemia Type 2 diabetes mellitus without complication, without long-term current use of insulin (CMS/HCC) (HCC) Flu vaccine need Type 2 diabetes mellitus without complication, without long-term current use of insulin (CMS/HCC) (HCC) documented in this encounter [facility]* Diagnosis Type 2 diabetes mellitus without complication, without long-term current use of insulin (CMS/HCC) (HCC)- Primary Essential hypertension, benign Need for influenza vaccination Need for prophylactic vaccination and inoculation against influenza Type 2 diabetes mellitus without complication, without long-term current use of insulin (CMS/HCC) (HCC)- Primary Essential hypertension, benign Type 2 diabetes mellitus without complication, without long-term current use of insulin (CMS/HCC) (HCC)- Primary Severe obesity (BMI 35.0-39.9) with comorbidity (HCC) Pneumonia due to infectious organism, unspecified laterality, unspecified part of lung Diarrhea, unspecified type Hypercholesteremia- Primary Pure hypercholesterolemia Type 2 diabetes mellitus without complication, without long-term current use of insulin (CMS/HCC) (HCC) Flu vaccine need Type 2 diabetes mellitus without complication, without long-term current use of insulin (CMS/HCC) (HCC)- Primary Major depressive disorder, recurrent severe without psychotic features (HCC) HTN (hypertension), benign Essential hypertension, benign Hypercholesteremia Pure hypercholesterolemia Essential hypertension, benign documented in this encounter [facility]* Diagnosis Type 2 diabetes mellitus without complication, without long-term current use of insulin (HCC)- Primary Essential hypertension, benign Need for influenza vaccination Need for prophylactic vaccination and inoculation against influenza Type 2 diabetes mellitus without complication, without long-term current use of insulin (HCC)- Primary Essential hypertension, benign Type 2 diabetes mellitus without complication, without long-term current use of insulin (HCC)- Primary Severe obesity (BMI 35.0-39.9) with comorbidity (HCC) Pneumonia due to infectious organism, unspecified laterality, unspecified part of lung Diarrhea, unspecified type Hypercholesteremia- Primary Pure hypercholesterolemia Type 2 diabetes mellitus without complication, without long-term current use of insulin (HCC) Flu vaccine need Hypercholesteremia- Primary Pure hypercholesterolemia Type 2 diabetes mellitus without complication, without long-term current use of insulin (HCC) Major depressive disorder, recurrent severe without psychotic features (HCC) Current smoker documented in this encounter [facility]* Diagnosis Type 2 diabetes mellitus without complication, without long-term current use of insulin (HCC)- Primary Essential hypertension, benign Need for influenza vaccination Need for prophylactic vaccination and inoculation against influenza Type 2 diabetes mellitus without complication, without long-term current use of insulin (HCC)- Primary Essential hypertension, benign Type 2 diabetes mellitus without complication, without long-term current use of insulin (HCC)- Primary Severe obesity (BMI 35.0-39.9) with comorbidity (HCC) Pneumonia due to infectious organism, unspecified laterality, unspecified part of lung Diarrhea, unspecified type Hypercholesteremia- Primary Pure hypercholesterolemia Type 2 diabetes mellitus without complication, without long-term current use of insulin (HCC) Flu vaccine need Cigarette smoker- Primary Tobacco use disorder [facility]* Diagnosis Type 2 diabetes mellitus without complication, without long-term current use of insulin (HCC)- Primary Essential hypertension, benign Need for influenza vaccination Need for prophylactic vaccination and inoculation against influenza Type 2 diabetes mellitus without complication, without long-term current use of insulin (HCC)- Primary Essential hypertension, benign Type 2 diabetes mellitus without complication, without long-term current use of insulin (HCC)- Primary Severe obesity (BMI 35.0-39.9) with comorbidity (HCC) Pneumonia due to infectious organism, unspecified laterality, unspecified part of lung Diarrhea, unspecified type Hypercholesteremia- Primary Pure hypercholesterolemia Type 2 diabetes mellitus without complication, without long-term current use of insulin (HCC) Flu vaccine need Type 2 diabetes mellitus without complication, without long-term current use of insulin (HCC)- Primary Severe obesity (BMI 35.0-39.9) with comorbidity (HCC) Major depressive disorder, recurrent severe without psychotic features (HCC) Essential hypertension, benign Screening mammogram, encounter for Lumbar back pain Lumbago Current smoker documented in this encounter [facility] note* Diagnosis Pneumonia of left upper lobe due to infectious organism Colitis- Primary Other and unspecified noninfectious gastroenteritis and colitis Colitis Other and unspecified noninfectious gastroenteritis and colitis Type 2 diabetes mellitus without complication, without long-term current use of insulin (HCC) Salmonella gastroenteritis Essential hypertension Unspecified essential hypertension Rash- Primary Rash and other nonspecific skin eruption documented in this encounter [facility] noteNo assessment information availableWTrumbull Regional [facility] Center Work Phone: Evaluation note* Diagnosis Type 2 diabetes mellitus without complication, without long-term current use of insulin (HCC)- Primary Essential hypertension, benign Need for influenza vaccination Need for prophylactic vaccination and inoculation against influenza Type 2 diabetes mellitus without complication, without long-term current use of insulin (HCC)- Primary Essential hypertension, benign Type 2 diabetes mellitus without complication, without long-term current use of insulin (HCC)- Primary Severe obesity (BMI 35.0-39.9) with comorbidity (HCC) Pneumonia due to infectious organism, unspecified laterality, unspecified part of lung Diarrhea, unspecified type Hypercholesteremia- Primary Pure hypercholesterolemia Type 2 diabetes mellitus without complication, without long-term current use of insulin (HCC) Flu vaccine need Type 2 diabetes mellitus without complication, without long-term current use of insulin (HCC)- Primary [facility] Consultation (Routine) - Pending Review Specialty Diagnoses / Procedures Referred By Contac t Referred To Contact Endocrinology Diagnoses Type 2 diabetes mellitus without complication, without long-term current use of insulin ([facility]/HCC) (HCC) Procedures [place] OFFICE/OUTPATIENT [facility] 60-74 MINUTES Hari Casanova PA-C [address] [place] [address] [facility] Diabetes [address] [place] [address] Referral ID Status Reason Start Date Expiration Date Visits Requested Visits Authorized [id number] Pending Review Specialty Services Required 3 07/11/2024 1 1 [facility] for referral (narrative)No reason for referral information availableWTrumbull Regional Medical Center Work Phone: Discharge Instructions * Attachments The following attachments cannot be sent through Care Everywhere. * COPD: Asthma ([place]) documented in this encounter* Attachments The following attachments cannot be sent through Care Everywhere. * URI (Upper Respiratory Infection): Viral ([place]) documented in this encounter* Instructions* Gonzalo Landeros MD - 12/22/2019 Return for worse pain, fever , vomiting * Attachments The following attachments cannot be sent through Care Everywhere. * UTI (Urinary Tract Infection): Female ([place]) documented in this encounter* Instructions* Shanice Dorsey MD - 08/05/2020 If your symptoms persist after 3 days, then you need to Get into see your doctor or come back to the emergency department and we will have to obtain a culture to see if he will become resistant to Cipro * Attachments The following attachments cannot be sent through Care Everywhere. * UTI (Urinary Tract Infection): Female ([place]) documented in this encounter Assessments Diagnosis Bronchitis- Primary Bronchitis, not specified as acute or chronic Diagnosis Acute upper respiratory infection- Primary Acute upper respiratory infections of unspecified site COPD exacerbation (HCC) Obstructive chronic bronchitis with exacerbation Diagnosis Pneumonia of left lung due to infectious organism, unspecified part of lung Diagnosis Acute UTI (urinary tract infection) Urinary tract infection, site not specified Diagnosis Acute cystitis with hematuria- Primary Acute cystitis Advance Directives Documents on File Type Date Recorded Patient Flat Examiner Expl anation Advance Directives and Living Will Power of Stummel Selector Documents on File Type Date Recorded Patient Flat Examiner Expl anation Advance Directives and Living Will Power of Stummel Selector Documents on File Type Date Recorded Patient Flat Examiner Expl anation ACP-Advance Directive ACP-Power of Stummel Selector Documents on File Type Date Recorded Patient Flat Examiner Expl anation ACP-Advance Directive ACP-Power of Stummel Selector Latest Code Status on File Code Status Date Activated Date Inactivated Comments Full Code 08/11/2021 6:05 PM Full Code 08/11/2021 6:41 AM 08/11/2021 5:51 PM Latest Code Status on File Code Status Date Activated Date Inactivated Comments Full Code 08/11/2021 6:05 PM 08/18/2021 8:33 PM Documents on File Type Date Recorded Patient Flat Examiner Expl anation Advance Directive(s) 04/07/2021 7:59 PM Advance Directive(s) 03/13/2021 2:34 PM Advance Directive(s) 09/09/2020 1:36 PM Advance Directive(s) 02/07/2020 2:34 PM Advance Directive(s) 10/10/2019 2:56 PM Advance Directive(s) 05/18/2019 2:18 PM Advance Directive(s) 09/20/2018 7:04 PM Latest Code Status on File Code Status Date Activated Date Inactivated Comments Full Code 05/18/2019 7:25 PM 05/21/2019 3:13 PM Full Code Order Discussed With: Patient Latest Code Status on File Code Status Date Activated Date Inactivated Comments Full Code 05/18/2019 7:25 PM 05/21/2019 3:13 PM Question Answer Comments Full Code Order Discussed With: Patient Date Activated Date Inactivated Comments 07/29/2023 9:49 AM 07/31/2023 4:08 PM Question Answer Comments Full Code Order Discussed With: Patient Date Activated Date Inactivated Comments 05/18/2019 7:25 PM 05/21/2019 3:13 PM Question Answer Comments Full Code Order Discussed With: Patient Advance Directive Response Recorded Date/ Time Do you have a Healthcare Power of Stummel Selector? No February 24, 2025 2:37pm Summary Purpose Family History No Family History Records FoundNo Family History Records FoundNo Family History Records FoundNo Family History Records FoundNo Family History Records FoundNo Family History Records FoundNo Family History Records FoundNo Family History Records FoundNo Family History Records FoundNo Family History Records FoundNo Family History Records Found Reason for Referral Specialty Diagnoses / Procedures Referred By Contac t Referred To Contact Radiology Diagnoses Current smoker Procedures CT lung screening low dose Lena Varner MD [address] [place] [address] [address] [place] [address] Referral ID Status Reason Start Date Expiration Date V isits Requested Visits Authorized [id number] Pending Review 05/08/2024 05/08/2025 1 1 Chief Complaint and Reason for Visit Chief Complaint Admit Date Rash February 24, 2025 2:00 pm Additional Source Comments Reason for Visit (unrecogniz ed section and content) Reason Comments Pharyngitis Cough Reason Comments Cough Nasal Congestion Shortness of Breath Fever Rib Pain (injury) with coughing Pharyngitis Reason Comments Dysuria Status Reason Specialty Diagnoses / Procedures Referre d By Contact Referred To Contact Closed Radiology Diagnoses Encounter for screening mammogram for breast cancer Procedures RYAN Digital Screen Bilateral [[id number]] Anjana Salinas MD 1 [facility] [place]. [address] [place] [address] Reason Comments Dysuria Hematuria Reason Comments Fatigue Specialty Diagnoses / Procedures Referred By Contac t Referred To Contact Radiology Diagnoses Cyst of mediastinum Procedures CT Chest W Contrast Anjana Salinas MD 1 [facility] [place]. [address] [place] [address] Referral ID Status Reason Start Date Expiration Date Visits Re quested Visits Authorized [id number] Closed 06/17/2021 06/17/2022 1 1 Reason Comments Concern For COVID-19 +SOB, dry cough, so re throat, dizziness, and generalized weakness Reason Comments Refill Request Reason Comments URI Cough Pharyngitis Reason Comments Diabetes Reason Comments Diabetes HbA1c recheck Hospital Follow-up Philly was seen in the ED on Feb 25 2023. She was diagnosed with pneumonia and a C. Diff infection. There was an abnormality on her XR so ED staff suggested she have a CT done. Reason Onset Date Comments Med Refill 04/28/2023 Reason Comments Abdominal Pain Reason Comments UTI Took azo, started th is am. Burning, urgency Reason Comments New Patient Dm check up Reason Comments Abdominal Pain Pt. States she has b een having severe abdominal pain since . States she had a colonoscopy completed at [facility] in June without answers to the root of the pain. States she cannot handle the pain anymore. No relief with Zofran and bentyl at home. Endorses intermittent coffee ground emesis. States her stools have been green in color consistently. Reason Onset Date Comments Med Refill 08/16/2023 Reason Onset Date Comments Medication Problem 08/16/2023 Reason Onset Date Comments Med Refill 11/14/2023 Reason Onset Date Comments Medication Problem 11/15/2023 Reason Comments Follow-up Reason Onset Date Comments Med Refill 02/26/2024 amLODIPine (Norv asc) 10 MG tablet , irbesartan (Avapro) 150 MG tablet Reason Comments Med Refill Reason Onset Date Comments Med Refill 03/06/2024 Metformin & Trad jenta Reason Comments UTI Started this morning , frequency, burning with urination, pressure, has taken some azo Reason Comments Follow-up Flu Vaccine Patient has agreed t o receive influenza vaccine in the office today. Reason Comments Follow-up Pt had flu vaccine a lready Reason Comments Follow-up Diabetes Reason Onset Date Comments Med Refill 10/26/2022 Reason Onset Date Comments Medication Problem 08/20/2024 Reason Onset Date Comments Med Refill 09/07/2024 Reason Onset Date Comments Other 09/18/2024 Release of Information 09/18/2024 Reason Onset Date Comments Medication Problem 10/07/2024 Reason Onset Date Comments Orders 10/09/2024 CT lung screenin g low dose Reason Comments Follow-up Flu Vaccine Patient has agreed t o receive influenza vaccine in the office today. Reason Onset Date Comments Orders 07/27/2024 CT-Lung Screen Reason Onset Date Comments Orders 11/08/2024 CT-Lung Screen Reason Onset Date Comments Appointment Request 01/05/2025 Reason Comments Follow-up Vaginitis/Bacterial Vaginosis Was recent ly on ATB for UTI and now has Vaginal Yeast symptoms Pain Side pain to left si de, possibly pulled muscle Reason Comments Rash Rash on the bottom o n her L but cheek, pt has tried hydrocortisone cream which made it burn more, INFORMATION SOURCE (unrecogn ized section and content) DATE CREATED AUTHOR 06/13/2019 [facility] DATE CREATED AUTHOR AUTHOR'S ORGANIZ ATION 03/05/2020 [facility] DATE CREATED AUTHOR AUTHOR'S ORGANIZ ATION 04/23/2021 [facility] DATE CREATED AUTHOR AUTHOR'S ORGANIZ ATION 08/29/2021 [facility] DATE CREATED AUTHOR AUTHOR'S ORGANIZ ATION 09/01/2021 [facility] DATE CREATED AUTHOR AUTHOR'S ORGANIZ ATION 05/16/2022 [facility] DATE CREATED AUTHOR AUTHOR'S ORGANIZ ATION 01/29/2025 [facility] DATE CREATED AUTHOR AUTHOR'S ORGANIZ ATION 02/25/2025 [facility] DATE CREATED AUTHOR AUTHOR'S ORGANIZ ATION 02/27/2025 [facility] DATE CREATED AUTHOR AUTHOR'S ORGANIZ ATION 03/10/2025 [facility] DATE CREATED AUTHOR AUTHOR'S ORGANIZ ATION 03/14/2025 [facility] Ordered Prescriptions (unrec ognized section and content) Prescription Sig Dispensed Refills Start Date End Da te phenazopyridine (PYRIDIUM) 200 MG tablet Take 1 tablet by mouth 3 times daily as needed for Pain (bladder spasm/pain) 6 tablet 0 08/05/2020 08/08/2020 ciprofloxacin (CIPRO) 500 MG tablet Take 1 tablet by mouth 2 times daily for 7 days 14 tablet 0 08/05/2020 08/12/2020 phenazopyridine (PYRIDIUM) 200 MG tablet Take 1 tablet by mouth 3 times daily as needed for Pain (bladder spasm/pain) 6 tablet 0 08/05/2020 08/05/2020 ciprofloxacin (CIPRO) 500 MG tablet Take 1 tablet by mouth 2 times daily for 7 days 14 tablet 0 08/05/2020 08/05/2020 Prescription Sig Dispensed Refills Start Date End Da te phenazopyridine (PYRIDIUM) 200 MG tablet Take 1 tablet by mouth 3 times daily as needed for Pain (bladder spasm/pain) 6 tablet 0 01/31/2021 02/03/2021 ciprofloxacin (CIPRO) 500 MG tablet Take 1 tablet by mouth 2 times daily for 3 days 6 tablet 0 01/31/2021 02/03/2021 Prescription Sig Dispensed Refills Start Date End Da te phenazopyridine (PYRIDIUM) 200 MG tablet Take 1 tablet by mouth 3 times daily as needed for Pain (bladder spasm/pain) 6 tablet 0 02/22/2021 02/25/2021 cephALEXin (KEFLEX) 500 MG capsule Take 1 capsule by mouth 3 times daily for 7 days 21 capsule 0 02/22/2021 03/01/2021 Prescription Sig Dispensed Refills Start Date End Da te methIMAzole (TAPAZOLE) 10 MG tablet Take 2 tablets by mouth daily 30 tablet 0 08/18/2021 Insulin Pen Needle ([employer] PEN NEEDLES 29G) 29G X 12MM MISC 1 each by Does not apply route daily 30 each 0 08/18/2021 sennosides-docusate sodium (SENOKOT-S) 8.6-50 MG tablet Take 1 tablet by mouth daily 5 tablet 0 08/18/2021 atorvastatin (LIPITOR) 40 MG tabletIndications:Hyper lipidemia, unspecified hyperlipidemia type TAKE TWO BY MOUTH EVERY OTHER DAY ALTERNATING WITH ONE EVERY OTHER DAY 135 tablet 1 08/18/2021 insulin NPH (HUMULIN N KWIKPEN) 100 UNIT/ML injection pen Inject 20 Units into the skin every morning for 2 days, THEN 15 Units every morning for 2 days, THEN 10 Units every morning for 2 days, THEN 5 Units every morning for 2 days. 1 pen 0 08/18/2021 08/26/2021 glimepiride (AMARYL) 4 MG tabletIndications:Type 2 diabetes mellitus without complication, without long-term current use of insulin (HCC) TAKE ONE BY MOUTH TWICE DAILY WITH MEALS 180 tablet 1 08/18/2021 ipratropium-albuterol (DUONEB) 0.5-2.5 (3) MG/3ML SOLN nebulizer solution Inhale 3 mLs into the lungs 2 times daily 360 mL 0 08/18/2021 predniSONE (DELTASONE) 20 MG tablet Take 2 tablets by mouth daily for 2 days, THEN 1.5 tablets daily for 2 days, THEN 1 tablet daily for 2 days, THEN 0.5 tablets daily for 2 days. 10 tablet 0 08/18/2021 08/26/2021 oxyCODONE (ROXICODONE) 5 MG immediate release tabletIndications:Media stinal mass Take 0.5-1 tablets by mouth every 4 hours as needed for Pain for up to 3 days. 12 tablet 0 08/18/2021 08/21/2021 Insulin Pen Needle ([employer] PEN NEEDLES 29G) 29G X 12MM MISC 1 each by Does not apply route daily 30 each 0 08/18/2021 08/18/2021 insulin NPH (HUMULIN N KWIKPEN) 100 UNIT/ML injection pen Inject 20 Units into the skin every morning for 2 days, THEN 15 Units every morning for 2 days, THEN 10 Units every morning for 2 days, THEN 5 Units every morning for 2 days. 1 pen 0 08/18/2021 08/18/2021 glimepiride (AMARYL) 4 MG tabletIndications:Type 2 diabetes mellitus without complication, without long-term current use of insulin (HCC) TAKE ONE BY MOUTH TWICE DAILY WITH MEALS 180 tablet 1 08/18/2021 08/18/2021 atorvastatin (LIPITOR) 40 MG tabletIndications:Hyper lipidemia, unspecified hyperlipidemia type TAKE TWO BY MOUTH EVERY OTHER DAY ALTERNATING WITH ONE EVERY OTHER DAY 135 tablet 1 08/18/2021 08/18/2021 ipratropium-albuterol (DUONEB) 0.5-2.5 (3) MG/3ML SOLN nebulizer solution Inhale 3 mLs into the lungs 2 times daily 360 mL 0 08/18/2021 08/18/2021 sennosides-docusate sodium (SENOKOT-S) 8.6-50 MG tablet Take 1 tablet by mouth daily 5 tablet 0 08/18/2021 08/18/2021 methIMAzole (TAPAZOLE) 10 MG tablet Take 2 tablets by mouth daily 30 tablet 0 08/18/2021 08/18/2021 Prescription Sig Dispensed Refills Start Date End Da te benzonatate (TESSALON) 100 MG capsule Take 1-2 capsules by mouth 3 times daily as needed for Cough 60 capsule 0 12/03/2021 12/13/2021 amoxicillin-clavulanate (AUGMENTIN) 875-125 MG per tablet Take 1 tablet by mouth 2 times daily for 7 days 14 tablet 0 12/03/2021 12/10/2021 Prescription Sig Dispensed Refills Start Date End Da te ciprofloxacin (CIPRO) 250 MG tablet Take 1 tablet by mouth 2 times daily for 3 days 6 tablet 0 04/14/2022 04/17/2022 Scheduled Active and Recently Administ ered Medications (unrecognized section and content) Medication Order 01/29/2021 01/30/2021 01/31/2021 ciprofloxacin (CIPRO) tablet 500 mg (COMPLETED) 500 mg, Oral, ONCE, On 01/31/21 at 1351, For 1 dose 1358 (Given - Provid er: Kaleigh Cagle RN) phenazopyridine (PYRIDIUM) tablet 200 mg 200 mg, Oral, ONCE, On 01/31/21 at 1324, For 1 dose, Take with food. May cause discoloration of urine. 1330 (Not Given - Pr ovider: Kaleigh Cagle RN - Reason: Patient took at home) Scheduled Medication Order 03/01/2021 03/02/2021 03/03/2021 0.9 % sodium chloride bolus (COMPLETED) 1,000 mL, Intravenous, at 2,000 mL/hr, Administer over 0.5 Hours, ONCE, On Tue03/03/21 at 2107, For 1 dose 2125 (New Bag - Prov ider: Cory Montemayor, RN)2156 (Stopped - Provider: Shanon Mai RN) Scheduled Medication Order 08/16/2021 08/17/2021 08/18/2021 acetaminophen (TYLENOL) tablet 1,000 mg 1,000 mg, Oral, EVERY 8 HOURS SCHEDULED (3 times per day), First dose on Tue08/11/21 at 2200, Maximum dose of acetaminophen is 4000 mg from all sources in 24 hours., Post-op 0724 (Not Given - Provider: Karen Robertson RN - Reason: Patient/family refused)1409 (Not Given - Provider: Karen Robertson RN - Reason: Patient/family refused)2223 (Not Given - Provider: True Kramer RN - Reason: Patient/family refused - Comment: gives her diarrhea) 0431 (Not Given - Provider: True Kramer RN - Reason: Patient/family refused)1313 (Not Given - Provider: Catia Goyal RN - Reason: Patient/family refused)2300 (Not Given - Provider: Adina Pérez RN - Reason: Patient/family refused) 0735 (Not Given - Provider: Adina Pérez RN - Reason: Patient/family refused)1221 (Given - Provider: Javy Stewart, KARINA)2200 (Due) amLODIPine (NORVASC) tablet 10 mg 10 mg, Oral, NIGHTLY, First dose on Tue08/11/21 at 2100 2143 (Given - Provider: True Kramer RN) 2148 (Given - Provider: Adina Pérez, KARINA) 2100 (Due) atorvastatin (LIPITOR) tablet 40 mg 40 mg, Oral, DAILY, First dose on Tue08/11/21 at 1830 2143 (Given - Provider: True Kramer RN) 214 (Given - Provider: Adina Pérez, KARINA) 220 (Due - Provider: Simon Emmanuel [facility]) clonazePAM (KLONOPIN) tablet 1 mg 1 mg, Oral, 2 TIMES DAILY, First dose (after last modification) on Tue08/16/21 at 2100 2143 (Given - Provider: True Kramer RN) 1051 (Given - Provider: Catia Goyal RN)214 (Given - Provider: Adina Pérez, KARINA) 0957 (Given - Provider: Javy Stewart RN)2099 (Due) dexamethasone (DECADRON) injection 6 mg 6 mg, IntraVENous, EVERY 24 HOURS, First dose on Tue08/14/21 at 1330 1435 (Given - Provider: Karen Robertson RN) 1312 (Given - Provider: Catia Goyal RN) 1219 (Given - Provider: Javy Stewart RN) enoxaparin (LOVENOX) injection 40 mg 40 mg, SubCUTAneous, DAILY, First dose on Tue08/12/21 at 0900, Post-op 0856 (Given - Provider: Karen Robertson RN) 1051 (Given - Provider: Catia Goyal RN) 0957 (Given - Provider: Javy Stewart RN) insulin lispro (HUMALOG) injection vial 0-12 Units 0-12 Units, SubCUTAneous, 3 TIMES DAILY WITH MEALS, First dose on Tue08/11/21 at 1830, Medium Dose Correction Algorithm Glucose: Dose: 70-139 No Insulin 140-199 2 Units 200-249 4 Units 250-299 6 Units 300-349 8 Units 350-399 10 Units 400 and above 12 Units 1013 (Not Given - Provider: Karen Robertson RN - Reason: Order parameters not met - Comment: pt not eating)1349 (Not Given - Provider: Karen Robertson RN - Reason: Other - Comment: pt not eating)1741 (Given - Provider: Karen Robertson RN) 1050 (Given - Provider: Catia Goyal RN)1313 (Given - Provider: Catia Goyal RN)1804 (Given - Provider: Catia Goyal RN) 0957 (Given - Provider: Javy Stewart RN)1228 (Given - Provider: Javy Stewart RN)1656 (Given - Provider: Javy Stewart RN) insulin lispro (HUMALOG) injection vial 0-6 Units (CANCELED) 0-6 Units, SubCUTAneous, NIGHTLY, First dose on Tue08/11/21 at 2100, If continuous tube feedings/TPN/NPO, give correction dose based on result, no reduction in dose. If eating or bolus tube feeding: Medium Dose Bedtime Correction Algorithm Glucose: Dose: 70-139 No Insulin 140-199 1 Unit 200-249 2 Units 250-299 3 Units 300-349 4 Units 350-399 5 Units 400 and above 6 Units 2224 (Given - Provider: True Kramer RN - Comment: BGT [id number]) 2200 (Given - Provider: Adina Pérez RN) insulin NPH (HUMULIN N;NOVOLIN N) injection vial 4 Units 4 Units, SubCUTAneous, EVERY EVENING, First dose on Tue08/18/21 at 1700 1656 (Given - Provider: Javy Stewart RN) insulin NPH (HUMULIN N;NOVOLIN N) injection vial 6 Units 6 Units, SubCUTAneous, EVERY MORNING, First dose on Tue08/19/21 at 0900 ipratropium-albuterol (DUONEB) nebulizer solution 1 ampule (CANCELED) 1 ampule, Inhalation, EVERY 4 HOURS WHILE AWAKE, First dose on Tue08/13/21 at 1200 1004 (Given - Provider: Juan Diego Rosales RCP)1345 (Given - Provider: Juan Diego Rosales RCP)1755 (Given - Provider: Juan Diego Rosales RCP)2211 (Not Given - Provider: Florence Ibarra RCP - Reason: Patient/family refused) 0923 (Given - Provider: Dom Manzano RCP)1348 (Not Given - Provider: Catia Goyal RN - Reason: Other - Comment: order discontinued) ipratropium-albuterol (DUONEB) nebulizer solution 1 ampule 1 ampule, Inhalation, 2 TIMES DAILY, First dose (after last modification) on Tue08/17/21 at 1600 1703 (Given - Provider: Dom Manzano RCP) 1016 (Not Given - Provider: Elodia Lozoya RCP - Reason: Other)1744 (Not Given - Provider: Elodia Lozoya RCP - Reason: Patient/family refused) methIMAzole (TAPAZOLE) tablet 20 mg 20 mg, Oral, DAILY, First dose on Tue08/12/21 at 0900 0857 (Given - Provider: Karen Robertson RN) 1051 (Given - Provider: Catia Goyal, KARINA) 1220 (Given - Provider: Javy Stewart, KARINA) mirtazapine (REMERON TIFFANY-TAB) disintegrating tablet 45 mg 45 mg, Oral, NIGHTLY, First dose on Tue08/11/21 at 2100 2143 (Given - Provider: True Kramer RN) 214 (Given - Provider: Adina Pérez RN) 2099 (Due) pantoprazole (PROTONIX) tablet 40 mg 40 mg, Oral, DAILY BEFORE BREAKFAST, First dose on Tue08/12/21 at 0700, Do not crush or break. Substituted for Omeprazole (PRILOSEC). 0458 (Given - Provider: True Kramer RN) 0430 (Given - Provider: True Kramer RN) 0708 (Given - Provider: Adina Pérez, KARINA) PARoxetine (PAXIL) tablet 20 mg 20 mg, Oral, 2 TIMES DAILY, First dose on Tue08/11/21 at 2100 0858 (Given - Provider: Karen Robertson RN)2143 (Given - Provider: True Kramer RN) 1051 (Given - Provider: Catia Goyal, KARINA)2148 (Given - Provider: Adina Pérez RN) 0957 (Given - Provider: Javy Stewart, KARINA)2100 (Due) polyethylene glycol (GLYCOLAX) packet 17 g 17 g, Oral, DAILY, First dose on Tue08/11/21 at 1830, Post-op 0856 (Not Given - Provider: Karen Robertson RN - Reason: Patient/family refused) 1054 (Not Given - Provider: Catia Goyal RN - Reason: Patient/family refused) 0957 (Not Given - Provider: Javy Stewart RN - Reason: Patient/family refused) remdesivir 100 mg in sodium chloride 0.9 % 250 mL IVPB (COMPLETED) 100 mg, IntraVENous, at 500 mL/hr, Administer over 30 Minutes, EVERY 24 HOURS, First dose on 08/15/21 at 1600, For 4 doses, Flush line with at least 30 mL normal saline after remdesivir infusion is complete. 1435 (New Bag - Provider: Karen Robertson RN)1541 (Stopped - Provider: Karen Robertson, RN) 1720 (New Bag - Provider: Catia Goyal RN)1750 (Stopped - Provider: Catia Goyal RN) 1618 (New Bag - Provider: Javy Stewart RN)1648 (Due: Stopped - Provider: Javy Stewart RN) sennosides-docusate sodium (SENOKOT-S) 8.6-50 MG tablet 1 tablet 1 tablet, Oral, 2 TIMES DAILY, First dose on Tue08/11/21 at 2100, Post-op 0856 (Not Given - Provider: Karen Robertson RN - Reason: Patient/family refused)2225 (Not Given - Provider: True Kramer RN - Reason: Patient/family refused) 1054 (Not Given - Provider: Catia Goyal RN - Reason: Patient/family refused)2301 (Not Given - Provider: Adina Pérez RN - Reason: Patient/family refused) 0957 (Not Given - Provider: Javy Stewart RN - Reason: Other)2100 (Due) sodium chloride (Inhalant) 3 % nebulizer solution 4 mL 4 mL, Nebulization, 2 TIMES DAILY, First dose on Tue08/13/21 at 0930 1005 (Given - Provider: Juan Diego Rosales RCP)1756 (Not Given - Provider: Juan Diego Rosales RCP - Reason: Other - Comment: pt refused for pain while coughing) 0923 (Given - Provider: Dom Manzano RCP)1705 (Given - Provider: Dom Manzano RCP) 1017 (Not Given - Provider: Elodia Lozoya RCP - Reason: Other)1745 (Canceled Entry - Provider: Elodia Lozoya RCP) sodium chloride flush 0.9 % injection 5-40 mL 5-40 mL, IntraVENous, EVERY 12 HOURS SCHEDULED (2 times per day), First dose on Tue08/11/21 at 2100, For Line Patency: Peripheral IV = 5 mL; Midline or Central Line = 10 mL/lumen. If following IV push medication, administer flush at same rate as the IV push. Flush volume is determined by type of infusion therapy being given. For non-viscous solutions use: Peripheral IV = 5 mL Midline or Central Line = 10 mL/lumen For viscous solutions (i.e. blood components, parenteral nutrition, contrast media, or after obtaining blood sample) use: Peripheral IV = 10 mL Midline or Central Line = 20 mL/lumen, Post-op 0857 (Given - Provider: Karen Robertson RN)2144 (Given - Provider: True Kramer RN) 1054 (Given - Provider: Catia Goyal, KARINA)2155 (Given - Provider: Adina Pérez, KARINA) 0957 (Given - Provider: Javy Stewart, KARINA)2100 (Due) PRN Medication Order 08/16/2021 08/17/2021 08/18/2021 0.9 % sodium chloride bolus 30 mL (0.272 mL/kg), IntraVENous, at 180 mL/hr, Administer over 10 Minutes, PRN, for Remdesivir line flush, Starting on Tue08/14/21 at 1505 0.9 % sodium chloride infusion 25 mL, IntraVENous, at 100 mL/hr, PRN, If patient receiving piggyback infusions without ordered maintenance IV fluids or with frequent/long duration piggyback infusions, Starting on Tue08/11/21 at 1804, Administer at the same rate as the piggyback being infused., Post-op clonazePAM (KLONOPIN) tablet 1 mg (CANCELED) 1 mg, Oral, 2 TIMES DAILY PRN, Anxiety, Starting on Tue08/11/21 at 1804 1018 (Given - Provider: Karen Robertson RN) dextrose 5 % solution 100 mL/hr, IntraVENous, PRN, Low blood sugar, Starting on Tue08/11/21 at 1804, Start infusion following administration of dextrose 50% or glucagon. dextrose 50 % IV solution 12.5 g, IntraVENous, PRN, Low blood sugar, Blood glucose less than 70 mg/dL and patient NOT ALERT or NPO., Starting on Tue08/11/21 at 1804, If patient does not respond within 5 minutes, repeat dose x1. Start D5W at 100 mL/hour until ordering provider can be reached. Repeat blood glucose in 15 minutes. If blood glucose is less than 70 mg/dL, repeat treatment and recheck blood glucose in 15 minutes x2. If using Glucostabilizer, dose as instructed per system. glucagon (rDNA) injection 1 mg 1 mg, IntraMUSCular, PRN, Low blood sugar, Blood glucose less than 70 mg/dL and patient NOT ALERT or NPO and does not have IV access., Starting on Tue08/11/21 at 1804, After administration, attempt intravenous access and start D5W at 100 mL/hr. Repeat blood glucose in 15 minutes x2 and notify provider. glucose (GLUTOSE) 40 % oral gel 15 g 15 g, Oral, PRN, Low blood sugar, Starting on Tue08/11/21 at 1804, If blood glucose less than 50 mg/dL and patient ALERT and TOLERATING PO, give 2 tubes glucose gel. If blood glucose less than 70 mg/dL and patient ALERT and TOLERATING PO, give 1 tube glucose gel. Repeat blood glucose in 15 minutes. If blood glucose is less than 70 mg/dL, repeat treatment and recheck blood glucose in 15 minutes x2 and notify provider. hydrALAZINE (APRESOLINE) injection 10 mg 10 mg, IntraVENous, EVERY 6 HOURS PRN, High Blood Pressure, give is SBP is > 160, second line, hold if HR is > 100, Starting on Tue08/11/21 at 1804, Post-op labetalol (NORMODYNE;TRANDATE) injection 10 mg 10 mg, IntraVENous, EVERY 6 HOURS PRN, High Blood Pressure, give if SBP is > 160, first line, hold if HR is < 65, Starting on Tue08/11/21 at 1804 ondansetron (ZOFRAN) injection 4 mg(Linked Group 1) 4 mg, IntraVENous, EVERY 6 HOURS PRN, Nausea, Vomiting, Starting on Tue08/11/21 at 1804, Administer if oral route cannot be used., Post-op ondansetron (ZOFRAN-ODT) disintegrating tablet 4 mg(Linked Group 1) 4 mg, Oral, EVERY 8 HOURS PRN, Nausea, Vomiting, Starting on Tue08/11/21 at 1804, Post-op oxyCODONE (ROXICODONE) immediate release tablet 10 mg(Linked Group 2) 10 mg, Oral, EVERY 4 HOURS PRN, Pain Severe (7-10), Starting on Tue08/11/21 at 1804, Post-op 1017 (Given - Provider: Karen Robertson RN)1435 (Given - Provider: Karen Robertson, KARINA)2143 (Given - Provider: True Kramer RN) 1052 (Given - Provider: Catia Goyal RN)1719 (Given - Provider: Catia Goyal RN)2249 (Given - Provider: Adina Pérez, KARINA) 1223 (Given - Provider: Javy Stewart RN)1656 (Given - Provider: Javy Stewart RN) oxyCODONE (ROXICODONE) immediate release tablet 5 mg(Linked Group 2) 5 mg, Oral, EVERY 4 HOURS PRN, Pain Moderate (4-6), Starting on Tue08/11/21 at 1804, Post-op 1017 (See Alternative - Provider: Karen Robertson RN)1435 (See Alternative - Provider: Karen Robertson RN)2143 (See Alternative - Provider: True Kramer RN) 1052 (See Alternative - Provider: Catia Goyal RN)1719 (See Alternative - Provider: Catia Goyal RN)2249 (See Alternative - Provider: Adina Pérez RN) 1223 (See Alternative - Provider: Javy Stewart RN)1656 (See Alternative - Provider: Javy Stewart RN) sodium chloride flush 0.9 % injection 5-40 mL 5-40 mL, IntraVENous, PRN, Line Care, Starting on Tue08/11/21 at 1804, After every IV line use, Post-op Linked Groups Order Group 1: ondansetron (ZOFRAN-ODT) disintegrating tablet 4 mgJump to med 4 mg, Oral, EVERY 8 HOURS PRN, Nausea, Vomiting, Starting on Tue08/11/21 at 1804, Post-op Or ondansetron (ZOFRAN) injection 4 mgJump to med 4 mg, IntraVENous, EVERY 6 HOURS PRN, Nausea, Vomiting, Starting on Tue08/11/21 at 1804
Administer if oral route cannot be used.
Post-op Group 2: oxyCODONE (ROXICODONE) immediate release tablet 5 mgJump to med 5 mg, Oral, EVERY 4 HOURS PRN, Pain Moderate (4-6), Starting on Tue08/11/21 at 1804, Post-op Or oxyCODONE (ROXICODONE) immediate release tablet 10 mgJump to med 10 mg, Oral, EVERY 4 HOURS PRN, Pain Severe (7-10), Starting on Tue08/11/21 at 1804, Post-op Scheduled Medication Order 12/01/2021 12/02/2021 12/03/2021 0.9 % sodium chloride bolus (COMPLETED) 1,000 mL (9.59 mL/kg), IntraVENous, at 495.9 mL/hr, Administer over 121 Minutes, ONCE, On Lucina 12/03/21 at 1352, For 1 dose 1432 (New Bag - Prov ider: Charo Stanford RN)1544 (Stopped - Provider: Charo Stanford RN) amoxicillin-clavulanate (AUGMENTIN) 875-125 MG per tablet 1 tablet (COMPLETED) 1 tablet, Oral, ONCE, 1 dose, On Lucina 12/03/21 at 1517, Antimicrobial Indications: Pneumonia (CAP) 1537 (Given - Provid er: Charo Stanford RN) benzonatate (TESSALON) capsule 100 mg (COMPLETED) 100 mg, Oral, ONCE, 1 dose, On Lucina 12/03/21 at 1352 1432 (Given - Provid er: Charo Stanford RN) Scheduled Medication Order 04/12/2022 04/13/2022 04/14/2022 acetaminophen (TYLENOL) tablet 1,000 mg (COMPLETED) 1,000 mg, Oral, ONCE, 1 dose, On Tue04/14/22 at 1810, Maximum dose of acetaminophen is 4000 mg from all sources in 24 hours. 1849 (Given - Provid er: Kaleigh Cagle RN) ciprofloxacin (CIPRO) tablet 250 mg (COMPLETED) 250 mg, Oral, ONCE, 1 dose, On Tue04/14/22 at 1942, Antimicrobial Indications: Urinary Tract Infection, Do not take with dairy products or calcium-fortified juices. Tube feeding (TF) interaction, obtain physician order to manage. Recommend holding TF for 1 hr before and 1 hr after dose. Due to decreased absorption do not give by J tube. 1945 (Given - Provid er: Delilah Whitehead RN) ondansetron (ZOFRAN) injection 4 mg (COMPLETED) 4 mg, IntraVENous, ONCE, 1 dose, On Tue04/14/22 at 1810 1848 (Given - Provid er: Kaleigh Cagle RN) sodium chloride flush 0.9 % injection 3 mL(Linked Group 1) 3 mL, IntraVENous, EVERY 8 HOURS, First dose on Tue04/14/22 at 1810, Until Discontinued, Flush line with 3-5 mL 1809 (Due) Linked Groups Order Group 1: Saline lock IV (COMPLETED) Routine, CONTINUOUS, Starting on Tue04/14/22 at 1815, Until Specified And sodium chloride flush 0.9 % injection 3 mLJump to med 3 mL, IntraVENous, EVERY 8 HOURS, First dose on Tue04/14/22 at 1810, Until Discontinued
Flush line with 3-5 mL
Scheduled Medication Order 06/19/2023 06/20/2023 06/21/2023 morphine injection 4 mg (COMPLETED) 4 mg, IntraVENous, Once, On Tue06/21/23 at 1105, For 1 dose, If oral and IV narcotics ordered, use oral first and only use IV if oral is ineffective or cannot take oral. Do Not give oral and IV within 1 hour of each other unless specifically ordered. 1125 (Given - Provid er: Aria Perez RN) ondansetron (Zofran) injection 4 mg (COMPLETED) 4 mg, IntraVENous, Once, On Tue06/21/23 at 1105, For 1 dose 112 (Given - Provid er: Aria Perez RN) sodium chloride 0.9 % bolus 1,000 mL (COMPLETED) 1,000 mL, IntraVENous, at 1,000 mL/hr, Administer over 1 Hours, Once, On Tue06/21/23 at 1105, For 1 dose 1126 (New Bag - Prov ider: Aria Perez RN)1217 (Stopped - Provider: Aria Perez RN) Scheduled Medication Order 07/22/2023 07/23/2023 07/24/2023 aluminum & magnesium hydroxide-simethicone (Mylanta) 200-200-20 MG/5ML oral suspension 20 mL (COMPLETED) 20 mL, Oral, Once, On 07/24/23 at 1650, For 1 dose 1657 (Given - Provid er: Dayanna Brock RN) morphine injection 4 mg (COMPLETED) 4 mg, IntraVENous, Once, On 07/24/23 at 1410, For 1 dose, If oral and IV narcotics ordered, use oral first and only use IV if oral is ineffective or cannot take oral. Do Not give oral and IV within 1 hour of each other unless specifically ordered. 1443 (Given - Provid er: Olga Blevins RN) ondansetron (Zofran) injection 4 mg (COMPLETED) 4 mg, IntraVENous, Once, On 07/24/23 at 1410, For 1 dose 1442 (Given - Provid er: Olga Blevins RN) pantoprazole (ProtoNix) EC tablet 40 mg (COMPLETED) 40 mg, Oral, Once, On 07/24/23 at 1650, For 1 dose, Do not crush, chew, or split. 1658 (Given - Provid er: Dayanna Brock RN) Continuous Medication Order 07/22/2023 07/23/2023 07/24/2023 sodium chloride 0.9 % infusion 125 mL/hr, IntraVENous, Continuous, Starting on 07/24/23 at 1410 1448 (New Bag - Prov ider: Olga Blevins RN)1703 (Stopped - Provider: Dayanna Brock RN) PRN Medication Order 07/22/2023 07/23/2023 07/24/2023 iopamidol (Isovue-370) 76 % injection 75 mL (COMPLETED) 75 mL, IntraVENous, IMG once PRN, contrast, Starting on 07/24/23 at 1532, For 1 dose 1532 (Given - Provid er: Keyana Black, RT (R)(CT)) Care Teams (unrecognized sec tion and content) Fabric Machine Operator Relationship Specialty Start Date End Date Anjana Salinas MD PCP - General 02/12/16 Fabric Machine Operator Relationship Specialty Start Date End Date Anjana Salinas MD PCP - General 02/12/16 Fabric Machine Operator Relationship Specialty Start Date End Date Anjana Salinas MD PCP - General 02/12/16 Fabric Machine Operator Relationship Specialty Start Date End Date Anjana Salinas MD PCP - General Family Practice 03/09/16 Fabric Machine Operator Relationship Specialty Start Date End Date Anjana Salinas MD PCP - General 02/12/16 Fabric Machine Operator Relationship Specialty Start Date End Date Anjana Salinas MD [address] [place] [address] PCP - General 01/13/19 Fabric Machine Operator Relationship Specialty Start Date End Date Anjana Salinas MD [address] [place] [address] PCP - General 01/13/19 Fabric Machine Operator Relationship Specialty Start Date End Date Anjana Salinas MD [address] [place] [address] PCP - General 01/13/19 Fabric Machine Operator Relationship Specialty Start Date End Date Anajna Salinas MD [address] [place] [address] PCP - General 01/13/19 Fabric Machine Operator Relationship Specialty Start Date End Date Anjana Salinas MD 1 [facility], [place], [facility] [address] [place] [address] PCP - General 01/13/19 Fabric Machine Operator Relationship Specialty Start Date End Date Anjana Salinas MD 1 [facility], [place], [facility] [address] [place] [address] PCP - General 01/13/19 Fabric Machine Operator Relationship Specialty Start Date End Date Anjana Salinas MD 1 [facility], [place], [facility] [address] [place] [address] PCP - General 01/13/19 Fabric Machine Operator Relationship Specialty Start Date End Date Anjana Salinas MD 1 [facility] [place], [facility] [address] [place] [address] PCP - General 01/13/19 Fabric Machine Operator Relationship Specialty Start Date End Date Anjana Salinas MD 1 [facility] [place], [facility] [address] [place] [address] PCP - General 01/13/19 Fabric Machine Operator Relationship Specialty Start Date End Date Anjana Salinas MD 1 [facility] [place], [facility] [address] [place] [address] PCP - General 01/13/19 Fabric Machine Operator Relationship Specialty Start Date End Date Lena Varner MD [address] [facility] [address] [place] [address] PCP - General Family Medicine 10/25/23 Fabric Machine Operator Relationship Specialty Start Date End Date Lena Varner MD [address] [place] [address] PCP - General Family Medicine 10/25/23 Fabric Machine Operator Relationship Specialty Start Date End Date Lena Varner MD [address] [place] [address] PCP - General Family Medicine 10/25/23 Fabric Machine Operator Relationship Specialty Start Date End Date Lena Varner MD [address] [place] [address] PCP - General Family Medicine 10/25/23 Fabric Machine Operator Relationship Specialty Start Date End Date Lena Varner MD [address] [place] [address] PCP - General Family Medicine 10/25/23 Fabric Machine Operator Relationship Specialty Start Date End Date Lena Varner MD [address] [place] [address] PCP - General Family Medicine 10/25/23 Fabric Machine Operator Relationship Specialty Start Date End Date Lena Varner MD [address] [place] [address] PCP - General Family Medicine 10/25/23 Fabric Machine Operator Relationship Specialty Start Date End Date Clare Robledo DO [address] [place] [address] PCP - General Family Medicine 07/17/23 Fabric Machine Operator Relationship Specialty Start Date End Date Lena Varner MD [address] [place] [address] PCP - General Family Medicine 10/25/23 Fabric Machine Operator Relationship Specialty Start Date End Date Lena Varner MD [address] [place] [address] PCP - General Family Medicine 10/25/23 Fabric Machine Operator Relationship Specialty Start Date End Date Lena Varner MD [address] [place] [address] PCP - General Family Medicine 10/25/23 Fabric Machine Operator Relationship Specialty Start Date End Date Lena Varner MD [address] [place] [address] PCP - General Family Medicine 10/25/23 Fabric Machine Operator Relationship Specialty Start Date End Date Lena Varner MD [address] [place] [address] PCP - General Family Medicine 10/25/23 Fabric Machine Operator Relationship Specialty Start Date End Date Anjana Salinas MD 1 [facility] [place], [facility] [address] [place] [address] PCP - General 01/13/19 Fabric Machine Operator Relationship Specialty Start Date End Date Anjana Salinas MD 1 [facility] [place], [facility] [address] [place] [address] PCP - General 01/13/19 Fabric Machine Operator Relationship Specialty Start Date End Date Lena Varner MD [address] [place] [address] PCP - General Family Medicine 10/25/23 Fabric Machine Operator Relationship Specialty Start Date End Date Lena Varner MD [address] [place] [address] PCP - General Family Medicine 10/25/23 Fabric Machine Operator Relationship Specialty Start Date End Date Lena Varner MD [address] [place] [address] PCP - General Family Medicine 10/25/23 Fabric Machine Operator Relationship Specialty Start Date End Date Lena Varner MD [address] [place] [address] PCP - General Family Medicine 10/25/23 Fabric Machine Operator Relationship Specialty Start Date End Date Lena Varner MD [address] [place] [address] PCP - General Family Medicine 10/25/23 Fabric Machine Operator Relationship Specialty Start Date End Date Lena Varner MD [address] [place] [address] [place] [address] PCP - General Family Medicine 10/25/23 Fabric Machine Operator Relationship Specialty Start Date End Date Lena Varner MD [address] [place] [address] PCP - General Family Medicine 10/25/23 Fabric Machine Operator Relationship Specialty Start Date End Date Lena Varner MD [address] [place] [address] PCP - General Family Medicine 10/25/23 Fabric Machine Operator Relationship Specialty Start Date End Date Lena Varner MD [address] [place], [place] [address] PCP - General Family Medicine 10/25/23 Fabric Machine Operator Relationship Specialty Start Date End Date Lena Varner MD [address] [place], [place] [address] PCP - General Family Medicine 10/25/23 Fabric Machine Operator Relationship Specialty Start Date End Date Lena Varner MD [address] [place] [address] [place], [place] [id number] PCP - General Family Medicine 01/27/25 Team Status: Active Member Role/Relationship Status Dates No Primary Care Physician Primary Care Provider Active Team Status: Inactive Member Role/Relationship Status Dates Dr. Rupesh Jensen , DO Emergency Provider Active Start: February 24, 2025 End: February 24, 2025 No Primary Care Physician Primary Care Provider Active Start: February 24, 2025 End: February 24, 2025 Source Comments (unrecognize d section and content) In the event this informatio n is protected by the Federal Confidentiality of Alcohol and Drug Abuse Patient Records regulations: The Federal rules restrict any use of the information to criminally investigate or prosecute any alcohol or drug abuse patient.[facility] the event this information is protected by the Federal Confidentiality of Alcohol and Drug Abuse Patient Records regulations: The Federal rules restrict any use of the information to criminally investigate or prosecute any alcohol or drug abuse patient.[facility] the event this information is protected by the Federal Confidentiality of Alcohol and Drug Abuse Patient Records regulations: The Federal rules restrict any use of the information to criminally investigate or prosecute any alcohol or drug abuse patient.[facility] the event this information is protected by the Federal Confidentiality of Alcohol and Drug Abuse Patient Records regulations: The Federal rules restrict any use of the information to criminally investigate or prosecute any alcohol or drug abuse patient.[facility] Goals (unrecognized section and content) Goals may be documented in a n alternate section FOR RECORDS PERTAINING TO PATIENTS WHO ARE OR HAVE BEEN ENROLLED IN A CHEMICAL DEPENDENCY/SUBSTANCEABUSE PROGRAM, SOME INFORMATION MAY BE OMITTED. This clinical summary was aggregated from multiple sources. Caution should be exercised in using it in the provision of clinical care. This summary normalizes information from multiple sources, and as a consequence, information in this document may materially change the coding, format and clinical context of patient data. In addition, data may be omitted in some cases. CLINICAL DECISIONS SHOULD BE BASED ON THE PRIMARY CLINICAL RECORDS. [facility]. provides no warranty or guarantee of the accuracy or completeness of information in this document.
[2025-04-07 19:28] LABS: Hematocrit 39.9 % (37-47); Hemoglobin 12.5 g/dL (12.0-15.0); Immature Granulocytes Count 0.130 X10^3/uL (0.0-0.0); Mean Corp Hgb Conc 31.3 g/dL (32-36); Mean Corpuscular Volume 84.0 fL (81-99); Mean Platelet Vol. 9.8 fl (6.2-12.0); NRBC Flagged by Analyzer 0 % (0-5); Platelet Count 430 K/mm3 (150-450); RBC Distribution Width CV 16.6 % (11.6-14.6); RBC Distribution Width SD 51.0 fl (35.1-43.9); Red Blood Count 4.75 M/mm3 (4.2-5.4); White Blood Count 16.9 K/mm3 (4.4-11.0)
[2025-04-07] MEDS: 0.9% Normal Saline (1000mL) 1,000 ML 999 ML IV (19:33)
--- NOTE | 2025-04-07 19:39 | PCA ---
no old ekg
--- NOTE | 2025-04-07 19:48 | NURSING ---
Pt is asking for a blanket, will answer simple questions. Is arousable to voice.
[2025-04-07 19:51] LABS: Mucous, Urine 0 SEEN /hpf (<or=2+)
--- NOTE | 2025-04-07 19:51 | NURSING ---
Dr notified again of bp running low. Pt placed in reverse trandelenburg. ABG's being drawn at this time. Fluids 3/4 done.
--- NOTE | 2025-04-07 19:53 | NURSING ---
Pt cont to be arousable to voice. Oriented to person, place and time. Pt reports she is in the hospital because of a suicide attempt. Pt following commands to open eyes and squeeze hand.
[2025-04-07 20:01] LABS: Color, Urine Straw (Yellow); Glucose, Dipstick 1000 mg/dl (Normal); Ketone-Dipstick Negative (Negative); Leukocyte Esterase-Dipstick Negative /ul (Negative); Nitrite-Dipstick Negative (Negative); Occult Blood-Urine Negative /ul (Negative); Protein-Dipstick 15 mg/dl (Negative); Specific Gravity, Urine 1.010 (1.002-1.030); Urine Bilirubin Dipstick Negative (Negative)
[2025-04-07 20:11] LABS: AST(SGOT) 24 U/L (<=31); Alanine Aminotransfer ALT/SGPT 11 U/L (<=34); Albumin, Serum 4.0 g/dL (3.4-4.8); Alkaline Phosphatase 111 U/L (35-104); Anion Gap 19 (5-15); BUN 8 mg/dL (4-19); BUN/Creat Ratio 5.3 RATIO (10-20); Calcium,Total 9.9 mg/dL (7.6-11.0); Carbon Dioxide 18.7 mmol/L (21.0-32.0); Chloride 102 mmol/L (98-108); Estimated Creatinine Clearance 42.58 ml/min (50-250); Globulin 3.0 g/dL (2.2-4.2); Glucose 150 mg/dL (70-99); Lipase 57 U/L (13-75); Potassium 3.8 mmol/L (3.3-5.1)
[2025-04-07] MEDS: Norepinephrine 8 MG in 0.9% Normal Saline (250mL Bag) 242 ML 9.4 MG CONT INF (20:11)
[2025-04-07 20:19] LABS: Allen Test Positive; Base Excess -2 mmol/L (-2 to +2); FI02 15.0; PO2 103 mmHG (75-100); SITE R Radial; SO2 98 % (95-99)
[2025-04-07 20:32] LABS: Magnesium 1.5 mg/dL (1.5-2.2)
[2025-04-07 20:32] LABS: Red Blood Cells-Urine 0-5 SEEN /hpf (0-5); Squamous Epithelial Cells - UA 0-5 SEEN /hpf (5-10)
[2025-04-07 20:33] LABS: Acetaminophen (Tylenol) Level < 5.0 ug/mL (8.0-19.0); Alcohol, Blood (Medical)-Serum < 10.1 mg/dL (<=10.0); Salicylate < 0.5 mg/dL (2.8-20.0)
--- NOTE | 2025-04-07 20:34 | NURSING ---
Pt sat up, c/o of nausea. MD notified. Very small emesis.
--- NOTE | 2025-04-07 20:50 | NURSING ---
Pt now sitting up in bed trying to call her daughter.
[2025-04-07] MEDS: KCl 20MEQ in D5NS 20 MEQ/1,000 ML IV.SOLN. 125 MEQ IV (21:01)
--- NOTE | 2025-04-07 21:38 | NURSING ---
Central line ordered verbally, supplies at bedside. Consent signed.
[2025-04-07] MEDS: Insulin Lispro 100 UNIT in 0.9% Normal Saline (100mL Bag) 99 ML 92.6 UNIT CONT INF (22:07)
--- NOTE | 2025-04-07 22:20 | NURSING ---
Flight team here. Report given. Insulin gtt being adjusted by flight team and dr galvan. Amp d50 given to flight team.
--- NOTE | 2025-04-07 22:51 | NURSING ---
Atempt x2 to call daughter to notify of transfor. Daughter did not answer phone. Unable to leave message.
[2025-04-07 23:42] LABS: Reflex Lactate? Y
--- NOTE | 2025-04-08 00:09 | EDS_ITS ---
HPI History of Present Illness Chief Complaint: Overdose Narrative Narrative: Patient is a 60-year-old female with past medical history anxiety, depression, type 2 diabetes, hypertension, hypercholesteremia who presents to the emergency department the chief complaint of intentional overdose. Per EMS she left a suicide note stating I hate my life, I am sorry, going to be with my mom, love you all. Per them they found all her medications empty bottles and believe that she took between 200 to 300 pills. They state that she took them around 1:00 PM and woke up around 6 and called EMS to have her brought here for further evaluation management. They brought the medications with them. [facility] Medical History Hypercholesterolemia Hypertension Type 2 diabetes mellitus Anxiety Depression Home Medications ?Medication ?Instructions ?Recorded ?Last Taken ?Type hydrocodone-acetaminophen 5-325mg 1 tab PO Q6H PRN PRN Pain 3 days 02/24/25 Unknown Rx 5mg-325mg #10 TABLETS valacyclovir 1 gram tablet 1,000 mg PO TID #20 tabs Unknown Rx (Valtrex) amlodipine 10 mg tablet 10 mg PO DAILY 04/07/25 Unkn own History clonazepam 2 mg tablet 2 mg PO BID 04/07/25 Unknown History dapagliflozin propanediol 10 mg 10 mg PO DAILY 5 Unknown History tablet (Farxiga) glimepiride 4 mg tablet 4 mg PO BID 04/07/25 Unknown History irbesartan 150 mg tablet 150 mg PO DAILY 04/07/25 Unk nown History linagliptin 5 mg tablet (Tradjenta) 5 mg PO DAILY 03/16 12/07 Unknown History paroxetine HCl 20 mg tablet 20 mg PO BID 04/07/25 Unkn own History Allergy/AdvReac Type Severity Reaction Status Date / Time NSAIDS (Non-Steroidal Allergy Hives Verified 02/24/25 14:03 Anti-Inflamma Sulfa (Sulfonamide AdvReac Diarrhea Verified 02/24/25 14:03 Antibiotics) Surgical History Hx of removal of cyst History of hysterectomy Hx of cholecystectomy Social History Smoking Status: Current every day smoker tobacco type: cigarettes ROS ROS ED ROS Narrative Review of systems unobtainable from the patient secondary to her altered mental status therefore acute care caveat applies EXAM Physical Exam Narrative Exam Narrative: General: Patient lying in bed resting comfortably did not appear to be in acute distress Head: Atraumatic, normocephalic Eyes: PERRL bilaterally, EOMI bilateral, no conjunctival injection noted Neck: Soft, supple, trachea midline Cardiovascular: Regular rate and rhythm Respiratory: Clear to auscultation bilaterally Abdomen: Soft, nondistended, nontender to palpation Extremities: Radial pulses +2/4 and about extremities, patient moving all extremities on exam Neurological: Patient originally when I examined her was just lying there still however when I attempted to raise her hand above her face and let it drop she did not let this hit her face, respiratory then asked her to lift her head off the bed so they could place oxygen and she was able to do this. She then was able to tell that she did not know where she was and that it was summer. Skin: Warm, dry, tact no rashes or lesions noted Const Vital Signs: 04/07/25 19:06 04/07/25 19:15 04/07/25 19:30 Temperature 66 F L Temperature Source Oral Pulse Rate 67 66 69 Respiratory Rate 19 H Blood Pressure 139/116 H 65/44 L 69/55 L Blood Pressure Mean 123 51 59 Pulse Ox 84 87 95 Oxygen Delivery Method Room Air Room Air Non-Rebreather Oxygen Flow Rate (L/min) 10 04/07/25 19:42 04/07/25 19:46 04/07/25 19:50 Temperature Temperature Source Pulse Rate 69 66 65 Respiratory Rate 25 H 17 17 Blood Pressure 71/47 L 61/39 L 66/42 L Blood Pressure Mean 55 46 51 Pulse Ox 96 99 98 Oxygen Delivery Method Non-Rebreather Non-Rebreather Oxygen Flow Rate (L/min) 04/07/25 19:53 04/07/25 19:55 04/07/25 19:56 Temperature Temperature Source Pulse Rate 67 66 66 Respiratory Rate 19 H 17 18 Blood Pressure 69/46 L 62/46 L 61/46 L Blood Pressure Mean 54 53 53 Pulse Ox 99 98 98 Oxygen Delivery Method Oxygen Flow Rate (L/min) 04/07/25 20:00 04/07/25 20:05 04/07/25 20:10 Temperature Temperature Source Pulse Rate 67 62 64 Respiratory Rate 17 16 17 Blood Pressure 65/46 L 67/49 L 83/57 L Blood Pressure Mean 54 56 65 Pulse Ox 92 97 100 Oxygen Delivery Method Oxygen Flow Rate (L/min) 04/07/25 20:11 04/07/25 20:23 04/07/25 20:31 Temperature Temperature Source Pulse Rate 63 62 59 L Respiratory Rate 15 15 18 Blood Pressure 67/49 L 71/56 L 81/43 L Blood Pressure Mean 55 61 55 Pulse Ox 98 98 97 Oxygen Delivery Method Non-Rebreather Non-Rebreather Non-Rebreather Oxygen Flow Rate (L/min) 04/07/25 20:36 04/07/25 20:41 04/07/25 21:00 Temperature Temperature Source Pulse Rate 65 63 60 Respiratory Rate 19 H 19 H 19 H Blood Pressure 82/53 L 86/45 L 94/57 L Blood Pressure Mean 62 58 69 Pulse Ox 92 97 98 Oxygen Delivery Method Nasal Cannula Nasal Cannula Nasal Cannula Oxygen Flow Rate (L/min) 6 6 8 04/07/25 21:21 04/07/25 21:30 04/07/25 22:00 Temperature 98.0 F Temperature Source Oral Pulse Rate 60 62 61 Respiratory Rate 20 H 16 24 H Blood Pressure 97/52 L 90/52 L 93/54 L Blood Pressure Mean 67 64 67 Pulse Ox 97 99 100 Oxygen Delivery Method Nasal Cannula Nasal Cannula Nasal Cannula Oxygen Flow Rate (L/min) 8 8 8 04/07/25 22:30 Temperature 98.0 F Temperature Source Pulse Rate 65 Respiratory Rate 16 Blood Pressure 92/51 L Blood Pressure Mean 64 Pulse Ox 98 Oxygen Delivery Method Oxygen Flow Rate (L/min) MDM MDM MDM Narrative Medical decision making narrative: Patient is a 60-year-old female who presents to the emergency department via EMS after intentional overdose with multiple medications on the differential diagnosis includes but not limited to suicide attempt, cardiogenic shock, hypoglycemia. Once the workup is obtained reviewed she will be reevaluated. After reviewing the medications that were brought in she took dapagliflozin 10 mg 90 tablets, Tradjenta 5 mg 90 tablets, clonazepam 2 mg unsure of how many tablets were in this as the label was very faded, amlodipine 10 mg 90 tablets, paroxetine 20 mg 180 tablets, irbesartan 150 mg 90 tablets, glimepiride 4 mg 180 tablets. After I examined the patient I immediately called poison control and spoke with Tj and after doing research he states that with the dapagliflozin if she becomes hypoglycemic during the 8-12 observation period then it goes to 24-hour observation. States that if the patient becomes hypotensive with amlodipine stat echo is recommended, if the patient is having evidence of serotonin syndrome with the paroxetine or having seizures benzos recommended. After further vital Geraldo the patient the patient did become hypotensive here in the emergency department I then immediately called poison control back and they got me in touch with the public relations player Dr. jefferson who is recommending that I give 1 mg/kg of methylene blue IV push over 20 minutes and then give her 92 mg/h of a drip. He is recommending calcium bolus to get the calcium to a 10-12 range he is also recommending checking the potassium and if is greater than 4 then high- dose insulin and glucose should be started with 1 unit/kg bolus followed by drip at that level. He then recommends Levophed as well and they are still recommending stat echocardiogram which is unattainable here in the emergency department. After starting peripheral Levophed patient's blood pressure was improving and she became much more alert to the point where she was sitting up and having her phone in her hand to have conversation. Patient CBC was reviewed which showed white blood cell count of 16,000, he was 12.5, plate count of 430. Patient's ABG was reviewed which showed a pH 7.36 with a pCO2 of 42.5. P sodium normal 140, potassium normal at 3.8, anion gap of 19, creatinine was 1.58, lactic acid of elevated to 3. Patient glucose 150, magnesium was 1.5. Patient's calcium was 9.9 she was given 3 g of calcium gluconate. Patient AST and ALT are 24 and 11 respectively. Patient lipase normal 57, urinalysis reviewed and did not show any acute evidence of infection. Patient's salicylate level is less than 0.5, Tylenol level less than 5 and alcohol level less than 10. Patient [id number] glucose was noted to be 260. Patient CT head and brain without contrast reviewed and showed no acute processes. Patient blood pressure continuously drop therefore Levophed was increased to 15 mics she was able to be placed on nasal cannula and her oxygen saturation was improved to the mid to high 90s. Toxicology called back and they are recommending transfer to a tertiary care center given the complexity of her medications and overdose. I discussed with the patient she would like to go to [place]. I reached out to [facility] Spoke with the supervisor statement clerks Dr. Sultana who will accept patient for transfer. Patient will be life flighted to [facility]. Nursing notified me that they are running out of IV access and is requesting central line placement. I went in and discussed with the patient discussed risks and benefits see procedure note for separate details. [facility] arrived and they took the patient to [facility]. 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 Indications, risks, and benefits were explained at length. Procedure was performed emergently and the permission was implied because of the emergent nature. Procedure summary: My hands were washed immediately prior to the procedure. I wore a surgical cap, mask, gown, protective eyewear and sterile gloves throughout the procedure. The patient was placed in Trendelenburg position. Right groin region was prepped using chlorhexidine scrub and draped in a sterile fashion using a full drape and sterile probe cover employed. The femoral vein and the femoral artery were identified. Anesthesia was achieved over the vein using 1% lidocaine. Using real-time out of plane guidance, the introducer needle was inserted into the right femoral vein under direct visualization of ultrasound guidance. Venous blood flow was withdrawn. The syringe was removed and guidewire was advanced into the introducer needle. The guidewire was visualized in the femoral vein by ultrasound. A small incision was made at the skin surface with a scalpel and the introducer needle was exchanged for the dilator over the guidewire. After appropriate dilation was obtained, the dilator was exchanged over the wire for a triple-lumen central venous catheter. The wire was removed and the catheter was sutured in place. A sterile SorbaView shield was placed over the catheter at the insertion site. Patient tolerated procedure well without any complications or hemodynamic compromise. At the time of the procedure completion, all ports aspirated and flushed properly. Estimated blood loss is 0.5 mL. Lab Data Labs: Laboratory Results - last 24 hr 04/07/25 04/07/25 04/07/25 19:11 19:20 19:38 WBC 16.9 H RBC 4.75 Hgb 12.5 Hct 39.9 MCV 84.0 MCH 26.3 L MCHC 31.3 L RDW Std Deviation 51.0 H RDW Coeff of Dominga 16.6 H Plt Count 430 MPV 9.8 Immature Gran % (Auto) 0.800 Neut % (Auto) 81.0 H Lymph % (Auto) 10.2 L Cotton % (Auto) 6.3 Eos % (Auto) 1.2 Baso % (Auto) 0.5 Absolute Neuts (auto) 13.7 H Absolute Lymphs (auto) 1.73 Nucleated RBC % 0 Sodium 140 Potassium 3.8 Chloride 102 Carbon Dioxide 18.7 L Anion Gap 19 H BUN 8 Creatinine 1.58 H Estim Creat Clear Calc 42.58 L Est GFR (MDRD) Non-Af 37 L BUN/Creatinine Ratio 5.3 L Glucose 150 H Lactic Acid 3.0 H* Calcium 9.9 Magnesium 1.5 Total Bilirubin 0.53 AST 24 ALT 11 Alkaline Phosphatase 111 H Total Protein 7.0 Albumin 4.0 Globulin 3.0 Albumin/Globulin Ratio 1.4 Lipase 57 Urine Color Urine Clarity Urine pH Ur Specific [place] Urine Protein Urine Glucose (UA) Urine Ketones Urine Occult Blood Urine Nitrite Urine Bilirubin Urine Urobilinogen Ur Leukocyte Esterase Urine RBC Urine WBC Ur Squamous Epith Cells Urine Bacteria Urine Mucus Salicylates < 0.5 L Acetaminophen < 5.0 L Ethyl Alcohol < 10.1 POC Glucose 142 H 04/07/25 04/07/25 04/07/25 19:45 20:53 21:47 WBC RBC Hgb Hct MCV MCH MCHC RDW Std Deviation RDW Coeff of Dominga Plt Count MPV Immature Gran % (Auto) Neut % (Auto) Lymph % (Auto) Cotton % (Auto) Eos % (Auto) Baso % (Auto) Absolute Neuts (auto) Absolute Lymphs (auto) Nucleated RBC % Sodium Potassium Chloride Carbon Dioxide Anion Gap BUN Creatinine Estim Creat Clear Calc Est GFR (MDRD) Non-Af BUN/Creatinine Ratio Glucose Lactic Acid Calcium Magnesium Total Bilirubin AST ALT Alkaline Phosphatase Total Protein Albumin Globulin Albumin/Globulin Ratio Lipase Urine Color Straw Urine Clarity Clear Urine pH 6.0 Ur Specific [place] 1.010 Urine Protein 15 H Urine Glucose (UA) 1000 H Urine Ketones Negative Urine Occult Blood Negative Urine Nitrite Negative Urine Bilirubin Negative Urine Urobilinogen Normal Ur Leukocyte Esterase Negative Urine RBC 0-5 SEEN Urine WBC 0-5 SEEN Ur Squamous Epith Cells 0-5 SEEN Urine Bacteria 0 SEEN Urine Mucus 0 SEEN Salicylates Acetaminophen Ethyl Alcohol POC Glucose 148 H 260 H ABG Data ABG results: ABG 04/07/25 20:16 Specimen Type ART Sample Site R Radial pH 7.36 Bicarbonate Actual 23.8 Total CO2 25 Base Excess -2 O2 Saturation 98 O2 % 15.0 ABG pCO2 42.5 ABG pO2 103 H Wong Test Positive O2 Delivery Device NRB Vent Mode Not entered Radiography Diagnostic Testing: Clinical Impression(s) from Imaging Studies Brain CT 04/07/25 19:17 IMPRESSION: No acute process is detected. Reading [facility] Dis[facility] Triage Chief Complaint: Overdose ED Provider: Kenyon Villeda Dx/Rx/DC Orders Clinical Impression: Suicide attempt, Depression, Anxiety, Type 2 diabetes mellitus, Overdose, Cardiogenic shock Prescriptions: No Action hydrocodone-acetaminophen 5-325 mg tablet 1 tab PO Q6H PRN PRN (Reason: Pain) 3 Days Qty: 10 0RF valacyclovir [Valtrex] 1 gram tablet 1,000 mg PO TID Qty: 20 0RF clonazepam 2 mg tablet 2 mg PO BID dapagliflozin propanediol [Farxiga] 10 mg tablet 10 mg PO DAILY amlodipine 10 mg tablet 10 mg PO DAILY paroxetine HCl 20 mg tablet 20 mg PO BID glimepiride 4 mg tablet 4 mg PO BID irbesartan 150 mg tablet 150 mg PO DAILY Tradjenta 5 mg tablet 5 mg PO DAILY Primary Care Provider: Care Physician,No Primary Referrals: Care Physician,No Primary [Primary Care Provider] - Print Language: Lao Disposition Disposition: Acute Care Hospital Discharge Location: [facility] Discharge Date/Time: 04/07/25 22:30
== END 2025-04-07 22:30 | disposition short-term general hospital (02) ==
PROVIDERS: Emergency Provider Emergency Medicine; Visit Provider Emergency Medicine
DX: T38.3X2A Poisoning by insulin and oral hypoglycemic [antidiabetic] drugs, intentional self-harm, initial encounter (principal); R57.0 Cardiogenic shock; T42.4X2A Poisoning by benzodiazepines, intentional self-harm, initial encounter; T46.1X2A Poisoning by calcium-channel blockers, intentional self-harm, initial encounter; T46.5X2A Poisoning by other antihypertensive drugs, intentional self-harm, initial encounter; E11.9 Type 2 diabetes mellitus without complications; I10 Essential (primary) hypertension; E78.00 Pure hypercholesterolemia, unspecified; F32.A Depression, unspecified; F41.9 Anxiety disorder, unspecified; F17.210 Nicotine dependence, cigarettes, uncomplicated; Z79.84 Long term (current) use of oral hypoglycemic drugs; Z79.899 Other long term (current) drug therapy
CPT/HCPCS: 36556; 36600; 70450; 80053; 80143; 80179; 81001; 82077; 82803; 82962; 83605; 83690; 83735; 85025; 93005; 96361; 96365; 96366; 96367; 96375; 99284; A4216; C1751; J0612; J2405